=== PATIENT | female | born 1950 | race Caucasian/White ===

== ENCOUNTER → 2019-11-24 08:45 | Outpatient (BNVA) | payer MEDICAID, SELFPAY | PROVIDERS: Family Provider Internal Medicine; PCP Internal Medicine; Visit Provider Internal Medicine | DX: M06.9 Rheumatoid arthritis, unspecified (principal); Z79.899 Other long term (current) drug therapy | CPT/HCPCS: 99213 ==

== ENCOUNTER 2020-07-25 08:00 | Outpatient (CLI) | payer MEDICAID, SELFPAY | END 2020-07-25 08:01 | disposition home or self-care (01) | LOC: WOUND 08:01 | PROVIDERS: Family Provider Internal Medicine; PCP Internal Medicine; Visit Provider Nurse Practitioner Family | DX: E11.622 Type 2 diabetes mellitus with other skin ulcer (principal); L97.822 Non-pressure chronic ulcer of other part of left lower leg with fat layer exposed; L97.812 Non-pressure chronic ulcer of other part of right lower leg with fat layer exposed | CPT/HCPCS: 11042; 11045; 87070; 87077; 87176; 87186; 87205; G0463 ==

== ENCOUNTER 2020-09-27 08:20 | Outpatient (CLI) | payer MEDICAID, SELFPAY | END 2020-09-27 08:21 | disposition home or self-care (01) | PROVIDERS: Family Provider Internal Medicine; PCP Internal Medicine; Visit Provider Surgery | DX: L97.822 Non-pressure chronic ulcer of other part of left lower leg with fat layer exposed (principal) | CPT/HCPCS: 11042; 11045; G0463 ==

== ENCOUNTER 2020-10-04 08:00 | Outpatient (CLI) | payer MEDICAID, SELFPAY | END 2020-10-04 08:01 | disposition home or self-care (01) | LOC: WOUND 08:01 | PROVIDERS: Family Provider Internal Medicine; PCP Internal Medicine; Visit Provider Surgery | DX: E11.622 Type 2 diabetes mellitus with other skin ulcer (principal); L97.822 Non-pressure chronic ulcer of other part of left lower leg with fat layer exposed | CPT/HCPCS: 11042; 11045 ==

== ENCOUNTER 2020-10-11 08:06 | Outpatient (CLI) | payer MEDICAID, SELFPAY | END 2020-10-11 08:07 | disposition home or self-care (01) | LOC: WOUND 08:06 | PROVIDERS: Family Provider Internal Medicine; PCP Internal Medicine; Visit Provider Nurse Practitioner Family | DX: I73.9 Peripheral vascular disease, unspecified (principal); L97.822 Non-pressure chronic ulcer of other part of left lower leg with fat layer exposed | CPT/HCPCS: 11042; 11045 ==

== ENCOUNTER 2020-10-18 08:36 | Outpatient (CLI) | payer MEDICAID, SELFPAY | END 2020-10-18 08:37 | disposition home or self-care (01) | LOC: WOUND 08:37 | PROVIDERS: Family Provider Internal Medicine; PCP Internal Medicine; Visit Provider Surgery | DX: I73.9 Peripheral vascular disease, unspecified (principal); L97.822 Non-pressure chronic ulcer of other part of left lower leg with fat layer exposed | CPT/HCPCS: 11042; 11045 ==

== ENCOUNTER 2020-10-25 08:26 | Outpatient (CLI) | payer MEDICAID, SELFPAY | END 2020-10-25 08:27 | disposition home or self-care (01) | LOC: WOUND 08:27 | PROVIDERS: Family Provider Internal Medicine; PCP Internal Medicine; Visit Provider Surgery | DX: I73.9 Peripheral vascular disease, unspecified (principal); L97.822 Non-pressure chronic ulcer of other part of left lower leg with fat layer exposed | CPT/HCPCS: 11042; 11045; 88304; 88305 ==

== ENCOUNTER 2020-10-31 08:52 | Outpatient (CLI) | payer MEDICAID, SELFPAY ==
--- NOTE | 2020-10-31 09:01 | USCV_ITS ---
Mer Pendleton Age: 70 Gender: F : 1950 Exam Date: 10/31/2020 09:31 Ordering Phys: Edmund Monroe MD Technologist: Sera Simmons Exam Location: [facility] [place] Indication: HISTORY: PROCEDURES: Left duplex Venous Insufficiency study of the Deep and Superficial systems was carried out according to normal protocol with the patient in supine positon for deep system and dependent position for the superficial system. FINDINGS: No DVT or superficial thrombus seen in Left lower extremity. Non healing ulcer left posterior and lateral calf areas. Two very minimal areas of minor reflux noted in left GSV AK and left SSV prox segment. Echo-free space was noted to the subcutaneous tissue at the above-knee and below-knee levels on the left side. CONCLUSIONS 1. Significant venous reflux of greater than 500 ms(806ms) was noted at the level of the distal greater saphenous vein segment on the left side. The vein was 2.95 cm deep with a diameter of 0.65 cm at this level. 2. No evidence of DVT on the left side. 3. No other significant reflux on the left side 4. Features of fluid retention/edema on the left side Dr Da Mena MD [facility] WITH [facility] (Electronically Signed) Final Date: 01 November 2020 08:26 S
== END 2020-10-31 08:53 | disposition home or self-care (01) ==
LOC: RAD 08:57
PROVIDERS: PCP Internal Medicine; Visit Provider Surgery
DX: E11.622 Type 2 diabetes mellitus with other skin ulcer (principal)
CPT/HCPCS: 93971

== ENCOUNTER 2020-11-08 08:38 | Outpatient (CLI) | payer MEDICAID, SELFPAY | END 2020-11-08 08:39 | disposition home or self-care (01) | LOC: WOUND 08:38 | PROVIDERS: PCP Internal Medicine; Visit Provider Thoracic Surgery (Cardiothoracic Vascular Surgery) | DX: I73.9 Peripheral vascular disease, unspecified (principal); L97.822 Non-pressure chronic ulcer of other part of left lower leg with fat layer exposed | CPT/HCPCS: 11042; 11045 ==

== ENCOUNTER 2020-11-15 09:09 | Outpatient (CLI) | payer MEDICAID, SELFPAY | END 2020-11-15 09:10 | disposition home or self-care (01) | LOC: WOUND 09:09 | PROVIDERS: PCP Internal Medicine; Visit Provider Surgery | DX: I73.9 Peripheral vascular disease, unspecified (principal); L97.822 Non-pressure chronic ulcer of other part of left lower leg with fat layer exposed | CPT/HCPCS: 11042; 11045 ==

== ENCOUNTER 2020-11-22 10:18 | Outpatient (CLI) | payer MEDICAID, SELFPAY | END 2020-11-22 10:19 | disposition home or self-care (01) | LOC: WOUND 10:19 | PROVIDERS: PCP Internal Medicine; Visit Provider Surgery | DX: I73.9 Peripheral vascular disease, unspecified (principal); L97.822 Non-pressure chronic ulcer of other part of left lower leg with fat layer exposed; I87.2 Venous insufficiency (chronic) (peripheral); L97.811 Non-pressure chronic ulcer of other part of right lower leg limited to breakdown of skin | CPT/HCPCS: 11042; 11045 ==

== ENCOUNTER 2020-11-29 10:12 | Outpatient (CLI) | payer MEDICAID, SELFPAY | END 2020-11-29 10:13 | disposition home or self-care (01) | LOC: WOUND 10:12 | PROVIDERS: PCP Internal Medicine; Visit Provider Surgery | DX: I73.9 Peripheral vascular disease, unspecified (principal); L97.822 Non-pressure chronic ulcer of other part of left lower leg with fat layer exposed | CPT/HCPCS: 11042; 11045 ==

== ENCOUNTER 2020-12-06 09:54 | Outpatient (CLI) | payer MEDICAID, SELFPAY | END 2020-12-06 09:55 | disposition home or self-care (01) | LOC: WOUND 09:55 | PROVIDERS: PCP Internal Medicine; Visit Provider Surgery | DX: I73.9 Peripheral vascular disease, unspecified (principal); L97.822 Non-pressure chronic ulcer of other part of left lower leg with fat layer exposed | CPT/HCPCS: 11042; 11045 ==

== ENCOUNTER → 2020-12-12 14:15 | Outpatient (BNVA) | payer MEDICAID, SELFPAY | PROVIDERS: PCP Internal Medicine; Visit Provider Internal Medicine Rheumatology | DX: M06.9 Rheumatoid arthritis, unspecified (principal); E11.622 Type 2 diabetes mellitus with other skin ulcer; L97.909 Non-pressure chronic ulcer of unspecified part of unspecified lower leg with unspecified severity | CPT/HCPCS: 99213 ==

== ENCOUNTER 2020-12-13 09:11 | Outpatient (CLI) | payer MEDICAID, SELFPAY | END 2020-12-13 09:12 | disposition home or self-care (01) | LOC: WOUND 09:12 | PROVIDERS: PCP Internal Medicine; Visit Provider Surgery | DX: I73.9 Peripheral vascular disease, unspecified (principal); L97.822 Non-pressure chronic ulcer of other part of left lower leg with fat layer exposed | CPT/HCPCS: 11042; 11045 ==

== ENCOUNTER 2020-12-20 07:59 | Outpatient (CLI) | payer MEDICAID, SELFPAY | END 2020-12-20 08:00 | disposition home or self-care (01) | LOC: WOUND 08:00 | PROVIDERS: PCP Internal Medicine; Visit Provider Surgery | DX: I96 Gangrene, not elsewhere classified (principal); L97.822 Non-pressure chronic ulcer of other part of left lower leg with fat layer exposed | CPT/HCPCS: 11042; 11045 ==

== ENCOUNTER 2020-12-27 08:35 | Outpatient (CLI) | payer MEDICAID, SELFPAY | END 2020-12-27 08:36 | disposition home or self-care (01) | LOC: WOUND 08:35 | PROVIDERS: PCP Internal Medicine; Visit Provider Surgery | DX: L97.822 Non-pressure chronic ulcer of other part of left lower leg with fat layer exposed (principal) | CPT/HCPCS: 11042; 11045 ==

== ENCOUNTER 2021-01-03 08:50 | Outpatient (CLI) | payer MEDICAID, SELFPAY | END 2021-01-03 08:51 | disposition home or self-care (01) | LOC: WOUND 08:51 | PROVIDERS: PCP Internal Medicine; Visit Provider Emergency Medicine | DX: I73.9 Peripheral vascular disease, unspecified (principal); L97.822 Non-pressure chronic ulcer of other part of left lower leg with fat layer exposed | CPT/HCPCS: 11042; 11045 ==

== ENCOUNTER 2021-01-10 09:26 | Outpatient (CLI) | payer MEDICAID, SELFPAY | END 2021-01-10 09:27 | disposition home or self-care (01) | LOC: WOUND 09:27 | PROVIDERS: PCP Internal Medicine; Visit Provider Surgery | DX: I73.9 Peripheral vascular disease, unspecified (principal); L97.822 Non-pressure chronic ulcer of other part of left lower leg with fat layer exposed; E11.9 Type 2 diabetes mellitus without complications | CPT/HCPCS: 11042; 11045; 99212 ==

== ENCOUNTER 2021-02-20 10:44 | Outpatient (CLI) | payer MEDICAID, SELFPAY ==
--- NOTE | 2021-02-20 10:52 | USCV_ITS ---
Mer Pendleton Age: 70 Gender: F : 1950 Exam Date: 02/20/2021 10:39 Ordering Phys: Edmund Monroe MD Technologist: Exam Location: [facility] [place]_ Indication: BILAT LEG ULCERS RIGHT LEFT Brachial mmHg Brachial 101.00 mmHg Pressure (mmHg) Waveform Pressure (mmHg) Waveform 145.00 Pre-Exercise Toe Pressure 134.00 1.40 Pre-Exercise Toe/Brachial Index 1.30 FINDINGS Normal resting TBIs bilaterally Noncompressible vessels at the ankles laterally CONCLUSIONS No significant arterial obstruction, based on the above findings. Dr Da Mena MD [facility] (Electronically Signed) Final Date: 20 February 2021 22:58 S
== END 2021-02-20 10:45 | disposition home or self-care (01) ==
LOC: RAD 10:46
PROVIDERS: PCP Internal Medicine; Visit Provider Surgery
DX: M79.604 Pain in right leg; M79.605 Pain in left leg; L97.929 Non-pressure chronic ulcer of unspecified part of left lower leg with unspecified severity; L97.919 Non-pressure chronic ulcer of unspecified part of right lower leg with unspecified severity
CPT/HCPCS: 93922

== ENCOUNTER 2021-04-03 16:10 | Emergency (ER) | payer MEDICAID, SELFPAY ==
--- NOTE | 2021-04-03 16:19 | ECG_ITS ---
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 Measurements Intervals Leslie Rate: 85 P: 58 ME: 113 QRS: 13 QRSD: 101 T: 66 QT: 383 QTc: 457 Interpretive Statements SINUS RHYTHM WITH SHORT ME INTERVAL POSSIBLE LEFT ATRIAL ENLARGEMENT [-0.1mV P-WAVE IN V1/V2] POSSIBLE ANTERIOR MYOCARDIAL INFARCTION , OF INDETERMINATE AGE [30 ms Q WAVE IN V3/V4, OR R < 0.2 mV IN V4] Compared to ECG 07/30/2018 06:03:08 Short ME interval now present Myocardial infarct finding still present Electronically Signed On 04-04-2021 6:35:00 FACILITY MAINTENANCE MANAGER by Trudy Romano M.D. [id number]
[2021-04-03 16:23] VITALS: BP 134/76; PULSE 88; RESP 22; TEMP 36.6; O2SAT 95; BMI 29.2
[2021-04-03 16:31] VITALS: BP 134/76; PULSE 88; RESP 22; TEMP 36.6; O2SAT 95
--- NOTE | 2021-04-03 16:34 | PC.NURSE ---
Pt arrived via EMS from [facility] care [facility]. Pt states this morning around 1100 staff took her VS, per staff pt had a new onset of A-Fib. Per pt, the A-Fib is not a new dx, she was dx with A-Fib aboutr 4 years ago. Pt A/O x4, vs taken, pt arrives in sinus rhythm with no A-Fib noted. Pt denies any SOB, chest pain, N/V, pt reports I feel fine and just want to go home and get back to wrapping my [employer] gifts . Pt placed on monitor.
--- NOTE | 2021-04-03 16:47 | PC.NURSE ---
Per Dr. Becerra pt ok to eat. Pt given a sandwich, saltine crackers, peanut butter, sugar free jello, a cheese stick and a diet sprite
--- NOTE | 2021-04-03 17:15 | W.ED.ARRPALP ---
HPI - Arrhythmia/Palpitations General: Chief Complaint: Arrhythmia/Palpitations Stated Complaint: EKG SHOWS AFIB Time Seen by Provider: 04/03/21 16:27 Source: patient and EMS History of Present Illness: HPI narrative: Patient presents via EMS to the emergency department this 70-year-old female presents with a known history of atrial fibrillation chief complaint by the intermediate with concerns of atrial fib patient reports he had one episode several years ago she is on no medications for it she reports that she was up doing her activities which the staff were doing vital signs on her which her heart rate was elevated patient did not report having any chest pain palpitations or shortness of breath reported that she does not know why she is here but there was concerns by the staff she may be back in atrial fibrillation. Patient reports he is been on no recent medications no recent medication changes reports recent infections or illnesses or any other associated symptoms. Associated symptoms: Deny anxiety, nausea or vomiting Review of Systems General: Reports: 10 or more systems reviewed and unremarkable except in HPI and below Const: Denies: fever(s), chills, fatigue or malaise Eyes: Denies: change in vision or blurry vision Card: Denies: chest pain or palpitations Resp: Denies: dyspnea or productive cough GI: Denies: abdominal pain, nausea or vomiting : Denies: flank pain Musc: Denies: extremity pain or extremity swelling Skin/Breast: Denies: rash or pruritus Neuro: Denies: headache(s) Psych: Denies: anxiety or depression Brennan/Lymph: Denies: easy bleeding All/Imm: Denies: urticaria, throat swelling or facial swelling PFSH ED PFSH: Medical History Anemia Atrial fibrillation CAD (coronary artery disease) CHF (congestive heart failure) Chronic ulcer of lower extremity Diabetes Obstructive sleep apnea Pulmonary edema Renal insufficiency Rheumatoid arthritis Seropositive rheumatoid arthritis of multiple sites in remission Surgical History S/P appendectomy S/P coronary artery stent placement S/P tonsillectomy Family History Other Cancer Heart disease Social History Smoking and tobacco status: never smoked Alcohol intake: never Physical Exam Narrative: EXAM NARRATIVE: Patient appears nontoxic appears no obvious acute distress actively questioning why she is here refusing any additional work-up Const: COMMON NORMALS: no acute distress, patient oriented x3 and healthy appearing HENMT: COMMON NORMALS: normocephalic and atraumatic HEAD & SCALP: normocephalic and atraumatic Eye: COMMON NORMALS: Equal, round and reactive pupils present and EOMs intact bilaterally PUPIL: Yes Equal, round and reactive pupils present Neck/C-Spine: COMMON NORMALS: full ROM, supple and no JVD Lymph: LYMPHATIC: no lymphadenopathy noted Chest: COMMONS NORMALS: normal inspection of the chest and normal palpation of entire chest wall Resp: COMMON NORMALS: normal respiratory effort, No retractions and clear to auscultation bilaterally EFFORT & INSPECTION: Yes able to speak in complete sentences and Yes symmetric chest movement AUSCULTATION: clear to auscultation bilaterally Cardio: COMMON NORMALS: no JVD, regular rate and regular rhythm RATE: regular rate RHYTHM: regular rhythm GI: COMMON NORMALS: Normal to inspection, nondistended, normoactive bowel sounds present, Soft to palpation and non-tender INSPECTION: Yes normal to inspection PALPATION: Yes Soft to palpation : COMMON NORMALS: Yes no CVA tenderness BLADDER/KIDNEY EXAM: Yes no CVA tenderness Back/Pelvis: COMMON NORMALS: no CVA tenderness Extremity: COMMON NORMALS: normal to inspection and full ROM Neuro: COMMON NORMALS: patient oriented x3, CN's II-XII intact bilaterally, moves all extremities and no focal motor deficits Psych: COMMON NORMALS: mental status grossly normal, Normal thought process present, cooperative and normal affect THOUGHT PROCESS: Normal thought process present Skin: COMMON NORMALS: no rashes or lesions noted GENERAL SKIN EXAM: no rashes or lesions noted Course ED course: Due to the patient's symptoms and condition EKG was obtained revealing just sinus with couple PACs no atrial fibrillation was appreciated patient requests no additional work-up at this time we observe the patient for over an hour and a half with with which she had no additional episodes of atrial fibrillation per her request will be discharging her back to the facility. We did advise she further follow-up with the primary care doctor and to 3 days for further assessment and management she is concerned about it as she may need back into medications for to which patient was advised to return the interim if any of her symptoms persist or worse. Vital Signs: Vital signs: Vital Signs Temperature 97.8 F 04/03/21 16:31 Pulse Rate 88 04/03/21 16:31 Respiratory Rate 22 H 04/03/21 16:31 Blood Pressure 134/76 04/03/21 16:31 Pulse Oximetry 95 04/03/21 16:31 Discharge Plan Discharge Patient Disposition: Home Clinical Impression: Personal history of atrial fibrillation, Sinus arrhythmia seen on electrocardiography Condition: Stable Prescriptions: No Action acetaminophen 325 mg tablet 650 mg PO Q6H PRNRF: 0 albuterol sulfate 2.5 mg /3 mL (0.083 %) solution for nebulization 2.5 mg INHALATION Q4H PRNRF: 0 atorvastatin 10 mg tablet 10 mg PO DAILY RF: 0 duloxetine 30 mg capsule,delayed release(DR/EC) 30 mg PO DAILY RF: 0 ferrous sulfate 325 mg (65 mg iron) tablet 325 mg PO BID RF: 0 hydrocodone-acetaminophen 10-325 mg tablet 1 tab PO Q6H PRNRF: 0 hydroxychloroquine 200 mg tablet 200 mg PO BID RF: 0 omeprazole 40 mg capsule,delayed release(DR/EC) 40 mg PO DAILY RF: 0 ondansetron HCl 8 mg tablet 8 mg PO QID PRN (Reason: nausea and vomiting) RF: 0 ropinirole 2 mg tablet 2 mg PO DAILY RF: 0 Spiriva Respimat 1.25 mcg/actuation mist 2 puff INHALATION DAILY RF: 0 trazodone 100 mg tablet 100 mg PO DAILY RF: 0 ergocalciferol (vitamin D2) 1,250 mcg (50,000 unit) capsule 1,250 mcg PO .WEEKLY RF: 0 bumetanide 2 mg tablet 2 mg PO BID RF: 0 docusate sodium [Colace] 100 mg capsule 100 mg PO DAILY RF: 0 polyethylene glycol 3350 [Miralax] 17 gram/dose powder 17 g PO DAILY RF: 0 nystatin 100,000 unit/mL suspension 1 ml PO DAILY PRNRF: 0 furosemide 40 mg tablet 40 mg PO DAILY RF: 0 Discharge Orders: Discharge ED (Routine); Ordered 04/03/21 Ordered By: Naif Becerra Referrals: Sonido Alvarado DO [Primary Care Provider] - 1-3 days Discharge Diet: Usual diet Discharge Activity: Resume usual activity Patient Instructions: A-fib (Atrial Fibrillation) (ED), Opioid Safety Activity Restrictions/Additional Instructions: During her stay in the emergency department no atrial fibrillation was noted. At this time for request she will be going back to the intermediate facility as you are totally asymptomatic. Please further follow-up with your primary care doctor next 2 to 3 days for further assessment and management and return the interim if any of your symptoms persist or worse. Coding Level of Care Code ED Patient Care for Italo Ohara
[2021-04-03 20:58] VITALS: BP 109/58; PULSE 83; RESP 18; O2SAT 97
== END 2021-04-03 21:00 | disposition home or self-care (01) ==
PROVIDERS: Emergency Provider Emergency Medicine; PCP Internal Medicine
DX: I49.8 Other specified cardiac arrhythmias (principal); I25.10 Atherosclerotic heart disease of native coronary artery without angina pectoris; I50.9 Heart failure, unspecified; E11.9 Type 2 diabetes mellitus without complications
CPT/HCPCS: 93005; 99283

== ENCOUNTER 2021-06-11 13:30 | Outpatient (CLI) | payer MEDICAID, SELFPAY ==
[2021-06-11 14:09] LABS: Basophils % 0.5 %; Eosinophils # 0.1 10^3/uL (0.0-0.8); Eosinophils % 1.3 %; Hematocrit 40.9 % (37.0-47.0); Hemoglobin 13.2 g/dL (11.5-15.3); Lymphocytes % 26.1 %; Mean Corpuscular HGB Conc 32.3 g/dL (30.0-36.0); Mean Corpuscular Hemoglobin 31.7 pg (28.0-34.0); Mean Corpuscular Volume 98.3 fl (81-99); Mean Platelet Volume 9.1 fL (7.4-10.4); Monocytes # 0.7 10^3/uL (0.2-0.9); Monocytes % 9.5 %; Neutrophils # 4.68 10^3/uL (1.8-7.7); Neutrophils % 62.5 %; Nucleated Red Blood Cells % 0 %; Platelet Count 261 10^3/cmm (130-400); Red Blood Count 4.16 10^6/uL (4.1-5.3); Red Cell Distribution Width 12.7 % (12.1-15.1); White Blood Count 7.5 10^3/uL (4.0-10.0)
[2021-06-11 14:45] LABS: Anion Gap 20.6 (5-19); Blood Urea Nitrogen 60 mg/dL (8-23); Calcium 9.5 mg/dL (8.5-10.5); Carbon Dioxide 26 mmol/L (22-29); Chloride 99 mmol/L (98-107); Glomerular Filtration Rate 34.4 mL/min (90-130); Glucose 126 mg/dL (65-115); Osmolality Calculated 310 mOsm/kg (285-295); Potassium 4.6 mmol/L (3.5-5.1); Sodium 141 mmol/L (136-145)
== END 2021-06-11 13:31 | disposition home or self-care (01) ==
PROVIDERS: PCP Internal Medicine; Visit Provider Internal Medicine
DX: R00.0 Tachycardia, unspecified (principal)
CPT/HCPCS: 80048; 85025

== ENCOUNTER → 2021-07-16 13:45 | Outpatient (BNVA) | payer MEDICAID, SELFPAY | PROVIDERS: PCP Internal Medicine; Visit Provider Internal Medicine Rheumatology | DX: M05.79 Rheumatoid arthritis with rheumatoid factor of multiple sites without organ or systems involvement (principal); Z79.899 Other long term (current) drug therapy; L97.919 Non-pressure chronic ulcer of unspecified part of right lower leg with unspecified severity; L97.929 Non-pressure chronic ulcer of unspecified part of left lower leg with unspecified severity; H54.61 Unqualified visual loss, right eye, normal vision left eye | CPT/HCPCS: 99214 ==

== ENCOUNTER → 2021-12-30 11:28 | Outpatient (BNVA) | payer MEDICAID, SELFPAY | PROVIDERS: PCP Internal Medicine; Visit Provider Internal Medicine Rheumatology | DX: M05.79 Rheumatoid arthritis with rheumatoid factor of multiple sites without organ or systems involvement (principal); Z79.899 Other long term (current) drug therapy; Z71.85 Encounter for immunization safety counseling; H54.61 Unqualified visual loss, right eye, normal vision left eye | CPT/HCPCS: 99214 ==

== ENCOUNTER → 2022-04-07 11:02 | Outpatient (BNVA) | payer MEDICAID, SELFPAY | PROVIDERS: PCP Internal Medicine; Visit Provider Internal Medicine Rheumatology | DX: M05.79 Rheumatoid arthritis with rheumatoid factor of multiple sites without organ or systems involvement (principal); Z79.899 Other long term (current) drug therapy; L97.909 Non-pressure chronic ulcer of unspecified part of unspecified lower leg with unspecified severity; Z71.85 Encounter for immunization safety counseling; H54.61 Unqualified visual loss, right eye, normal vision left eye | CPT/HCPCS: 73130; 99214 ==

== ENCOUNTER → 2022-07-09 12:36 | Outpatient (BNVA) | payer MEDICAID, SELFPAY | PROVIDERS: PCP Internal Medicine; Visit Provider Internal Medicine Rheumatology | DX: M05.79 Rheumatoid arthritis with rheumatoid factor of multiple sites without organ or systems involvement (principal); L97.909 Non-pressure chronic ulcer of unspecified part of unspecified lower leg with unspecified severity; Z79.899 Other long term (current) drug therapy; Z71.85 Encounter for immunization safety counseling; H54.8 Legal blindness, as defined in USA; Z87.448 Personal history of other diseases of urinary system; Z86.79 Personal history of other diseases of the circulatory system | CPT/HCPCS: 99214 ==

== ENCOUNTER → 2023-01-14 12:54 | Outpatient (BNVA) | payer MEDICAID, SELFPAY | PROVIDERS: PCP Internal Medicine; Visit Provider Internal Medicine Rheumatology | DX: M05.79 Rheumatoid arthritis with rheumatoid factor of multiple sites without organ or systems involvement (principal); Z79.899 Other long term (current) drug therapy; Z71.85 Encounter for immunization safety counseling | CPT/HCPCS: 36415; 80076; 82565; 85025; 86140; 99214 ==

== ENCOUNTER 2023-09-18 08:33 | Emergency (ER) | payer MEDICAID, SELFPAY ==
[2023-09-18] VITALS (20 sets, daily range): BP systolic 118–145; BP diastolic 71–107; PULSE 72–160; RESP 16–23; TEMP 36.8; O2SAT 93–96
--- NOTE | 2023-09-18 08:56 | ECG_ITS ---
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 Measurements Intervals [place] Rate: 156 P: 0 UT: 0 QRS: 48 QRSD: 85 T: -13 QT: 289 QTc: 466 Interpretive Statements ATRIAL FIBRILLATION WITH RAPID VENTRICULAR RESPONSE LOW QRS VOLTAGE IN PRECORDIAL LEADS [QRS DEFLECTION < 1.0 mV IN CHEST LEADS] ST DEVIATION AND MODERATE T-WAVE ABNORMALITY, CONSIDER ANTERIOR ISCHEMIA [-0.1+ mV T-WAVE IN V3/V4] No previous ECG available for comparison Electronically Signed On 09-18-2023 12:05:56 CDT by Madison Cheung M.D. [id number]
--- NOTE | 2023-09-18 08:58 | USR_ITS ---
PROCEDURE INFORMATION: Exam: US Duplex Left Lower Extremity Arteries Or Arterial Bypass Grafts Exam date and time: 09/18/2023 9:32 AM Age: 73 years old Clinical indication: Other: Ischemic limb; Additional info: Isemic limb TECHNIQUE: Imaging protocol: Left Real-time duplex scan of the arteries or arterial bypass grafts of the left lower extremity with 2-D groves scale, color Doppler flow and spectral waveform analysis. Images documented and saved. COMPARISON: US CV ankle brachial index [id number] 02/20/2021 10:39 AM FINDINGS: Left external iliac artery: The left iliac artery system demonstrates a normal Doppler waveform and normal flow. Left common femoral artery: Occlusion noted. Left superficial femoral artery: Occlusion noted. Left popliteal artery: Occlusion noted. Left calf/foot arteries: No arterial Doppler flow detected. Other findings: There is occlusion involving the common femoral artery, superficial femoral artery and popliteal artery. Arterial flow cannot be identified at the ankle. 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
--- NOTE | 2023-09-18 09:00 | W.ED.EXTPRO ---
HPI - Extremity Problem General: Chief complaint: Extremity Problem,Nontraumatic Stated complaint: LEFT LEG PAIN Time Seen by Provider: 09/18/23 08:38 Source: patient Mode of arrival: EMS History of Present Illness: 71-year-old female presents emergency room with complaint of left lower leg pain that began overnight. [facility] is [facility]. On arrival here the leg is cool to touch and cyanotic in appearance. She does tell me she has had blood clots in the past and was on some anticoagulants but was stopped. She has a history of rheumatoid arthritis as well. She is also noted to have rapid heart rate. She is in atrial fibrillation. She tells me she may have had this in the past she is not entirely sure. She denies chest pain MD Complaint: extremity pain and cold extremity Onset (ago): hour(s) Pain Consistency: constant Location: left and lower extremity Quality: aching Radiation: distal Relieving factors: nothing Exacerbating factors: nothing Associated symptoms: Deny arthralgias, chest pain, fever(s), myalgias, rash or short of breath Review of Systems Const: Denies: fever(s) Card: Denies: chest pain Resp: Denies: dyspnea GI: Denies: abdominal pain : Denies: dysuria, urinary frequency or urinary urgency Musc: Denies: neck pain or back pain Skin/Breast: Denies: rash PFSH ED PFSH: Medical History Anemia Atrial fibrillation CAD (coronary artery disease) CHF (congestive heart failure) Chronic ulcer of lower extremity Diabetes High risk medication use History of COPD Immunization counseling Obstructive sleep apnea Pulmonary edema Renal insufficiency Restless leg syndrome Rheumatoid arthritis Seropositive rheumatoid arthritis of multiple sites Ulcers of both lower extremities Surgical History S/P appendectomy S/P coronary artery stent placement S/P tonsillectomy Family History Other Cancer Heart disease Social History Smoking and tobacco/nicotine status: never used tobacco/nicotine Alcohol intake: never Substance/Drug Use: never Physical Exam Const: GENERAL APPEARANCE: cooperative ORIENTATION/CONSCIOUSNESS: Yes awake HENMT: COMMON NORMALS: normocephalic, atraumatic and hearing grossly normal bilaterally HEAD & SCALP: normocephalic and atraumatic Resp: COMMON NORMALS: normal respiratory effort, No retractions and No use of accessory muscles AUSCULTATION: diminished lung sounds Cardio: COMMON NORMALS: No murmurs present (Cardio) RATE: tachycardic RHYTHM: abnormal rhythm irregularly irregular GI: COMMON NORMALS: Soft to palpation and No hepatosplenomegaly present AUSCULTATION: Yes normoactive bowel sounds PALPATION: Yes Soft to palpation, No Tenderness to palpation present (GI), No Guarding due to palpation present (GI) and Yes No hepatosplenomegaly present Extremity: OTHER: Left lower leg is cool and cyanotic there is no palpable pulse no dopplerable pulse appears ischemic Patient cannot appreciate the difference between sharp and dull touch unable to move toes or ankle. She can still move at the hip Skin: COMMON NORMALS: no rashes or lesions noted GENERAL SKIN EXAM: no rashes or lesions noted Course Vital Signs: Vital signs: Vital Signs Temperature 98.2 F 09/18/23 08:44 Pulse Rate 80 09/18/23 14:00 Respiratory Rate 17 09/18/23 12:15 Blood Pressure 128/103 09/18/23 11:55 Pulse Oximetry 95 09/18/23 14:00 Oxygen Delivery Me thod Room Air 09/18/23 09:25 MDM - Extremity (Nontraumatic) Medical Decision Making Transfer to [facility]. At time of arrival here patient has no sensation to the leg and is unable to move the toes she can still move at the foot she can barely proceed with additional screens sharp and dull touch on the affected foot. We do not have exact time of onset of symptoms seem to be of began during the night and was noted this morning when she woke up. She still is having some pain. Heparin started initially after exam as well as Cardizem which she maxed out on did not have rate control or change her to amiodarone which did provide adequate rate control will transfer to [facility] of talk to vascular surgery she will be a direct admit to the hospitalist service Medical Records I reviewed the patient's medical records. Lab Data I reviewed the patient's lab results. 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 Laboratory Results WBC 6.49 10^3/uL (3.29-11.43) 09/18/23 08:22 RBC 4.07 10^6/uL (3.85-5.65) 09/18/23 08:22 Hgb 12.20 g/dL (11.27-16.99) 09/18/23 08:22 Hct 37.7 % (36-47) 09/18/23 08:22 MCV 92.6 fl (85-98) 09/18/23 08:22 MCH 30.0 pg (27-33) 09/18/23 08:22 MCHC 32.4 g/dL (30-55) 09/18/23 08:22 RDW 12.8 % (12.1-15.1) 09/18/23 08:22 Plt Count 250 10^3/cmm (157-399) 09/18/23 08:22 MPV 9.4 fL (7.4-10.4) 09/18/23 08:22 Neut % (Auto) 47.7 % 09/18/23 08:22 Lymph % (Auto) 39.4 % 09/18/23 08:22 Mckean % (Auto) 10.5 % 09/18/23 08:22 Eos % (Auto) 0.9 % 09/18/23 08:22 Baso % (Auto) 1.2 % 09/18/23 08:22 Neut # (Auto) 3.09 10^3/uL (1.8-7.7) 09/18/23 08:22 Lymph # (Auto) 2.6 10^3/uL (0.8-4.8) 09/18/23 08:22 Mckean # (Auto) 0.7 10^3/uL (0.2-0.9) 09/18/23 08:22 Eos # (Auto) 0.1 10^3/uL (0.0-0.8) 09/18/23 08:22 Baso # (Auto) 0.1 10^3/uL (0.0-0.1) 09/18/23 08:22 Nucleated RBC % (auto) 0 % 09/18/23 08:22 Nucleated RBCs # 0.0 /100WBC 09/18/23 08:22 PT 13.50 SECONDS (12.1-14.9) 09/18/23 08:22 INR 1.00 (0.8-1.2) 09/18/23 08:22 APTT 29.9 SECONDS (23.9-36.7) 09/18/23 08:22 Sodium 133 mmol/L (136-145) L 09/18/23 08:22 Potassium 3.8 mmol/L (3.5-5.1) 09/18/23 08:22 Chloride 88 mmol/L (98-107) L 09/18/23 08:22 Carbon Dioxide 29 mmol/L (22-29) 09/18/23 08:22 Anion Gap 19.8 (5-19) H 09/18/23 08:22 BUN 59 mg/dL (8-23) H 09/18/23 08:22 Creatinine 1.5 mg/dL (0.5-0.9) H 09/18/23 08:22 GFR Calculation Not Reportable 09/18/23 08:22 Glucose 160 mg/dL (65-115) H 09/18/23 08:22 Calculated Osmolality 296 mOsm/kg (285-295) H 09/18/23 08:22 Calcium 10.0 mg/dL (8.5-10.5) 09/18/23 08:22 Total Bilirubin 0.4 mg/dL (0.15-1.2) 09/18/23 08:22 AST 20 U/L (0-32) 09/18/23 08:22 ALT 12 U/L (0-33) 09/18/23 08:22 Alkaline Phosphatase 146 U/L (35-105) H 09/18/23 08:22 Total Protein 8.0 g/dL (6.6-8.7) 09/18/23 08:22 Albumin 3.7 g/dL (3.5-5.2) 09/18/23 08:22 Globulin 4.3 g/dL (1.3-4.6) 09/18/23 08:22 All radiology interpretation(s) finalized by discharge Critical Care Time Critical Care Time: Critical Care Time: Yes Total Critical Care Time: 40 Attestation: The high probability of a clinically significant, sudden or life threatening deterioration of the patient's cardiovascular, vascular system(s) required my full and direct attention, intervention and personal management. The critical care time is as shown. This time is in addition to time spent performing any reported procedures but includes the following: [x] Data and vital sign review and interpretation [x] Patient assessment, examination and intervention [x] Documentation [x] Medication orders and management Discharge Plan Discharge Patient Disposition: Xfer Short-Term Hosp Clinical Impression: Thrombosis of artery of left lower extremity, Atrial fibrillation with RVR Condition: Stable Referrals: Sonido Alvarado DO [Primary Care Provider] - Coding Level of Care Code ED Hammer Repairer for Italo Ohara
[2023-09-18 09:05] LABS: Basophils # 0.1 10^3/uL (0.0-0.1); Basophils % 1.2 %; Eosinophils # 0.1 10^3/uL (0.0-0.8); Eosinophils % 0.9 %; Hematocrit 37.7 % (36-47); Lymphocytes # 2.6 10^3/uL (0.8-4.8); Lymphocytes % 39.4 %; Mean Corpuscular HGB Conc 32.4 g/dL (30-55); Mean Corpuscular Volume 92.6 fl (85-98); Mean Platelet Volume 9.4 fL (7.4-10.4); Monocytes # 0.7 10^3/uL (0.2-0.9); Monocytes % 10.5 %; Neutrophils # 3.09 10^3/uL (1.8-7.7); Neutrophils % 47.7 %; Nucleated Red Blood Cells % 0 %; Platelet Count 250 10^3/cmm (157-399); Red Blood Count 4.07 10^6/uL (3.85-5.65); Red Cell Distribution Width 12.8 % (12.1-15.1); White Blood Count 6.49 10^3/uL (3.29-11.43)
[2023-09-18] MEDS: dilTIAZem 5 mg/mL SDV 5 mL 20 MG IVP (09:10)
[2023-09-18 09:18] LABS: Partial Thromboplastin Time 29.9 SECONDS (23.9-36.7)
[2023-09-18] MEDS: heparin 5,000 unit/mL INJ 1 mL IV (09:18)
[2023-09-18] MEDS: heparin drip 25,000 UNIT/500 ML PREMIX 17.7800000000000011 UNIT IV (09:18)
[2023-09-18] MEDS: dilTIAZem 100 MG in sodium chloride 0.9% (add-van) 100 ML IV (09:19)
[2023-09-18 09:21] LABS: Alanine Aminotransferase 12 U/L (0-33); Albumin Level 3.7 g/dL (3.5-5.2); Alkaline Phosphatase 146 U/L (35-105); Aspartate Amino Transferase 20 U/L (0-32); Blood Urea Nitrogen 59 mg/dL (8-23); Carbon Dioxide 29 mmol/L (22-29); Chloride 88 mmol/L (98-107); Creatinine Clr Calc Pharmacy 33.9859; Globulin 4.3 g/dL (1.3-4.6); Glucose 160 mg/dL (65-115); Osmolality Calculated 296 mOsm/kg (285-295); Sodium 133 mmol/L (136-145); Total Bilirubin 0.4 mg/dL (0.15-1.2)
[2023-09-18 09:24] LABS: Anion Gap 19.8 (5-19); Potassium 3.8 mmol/L (3.5-5.1)
[2023-09-18] MEDS: morphine 4 mg/mL SDV 1 mL 2 MG IVP (10:46)
[2023-09-18] MEDS: sodium chloride 0.9% 1,000 ML 999 ML IV (10:49)
[2023-09-18] MEDS: amiodarone 150 MG/100 ML PREMIX 400 MG IV (10:50)
--- NOTE | 2023-09-18 12:29 | PC.NURSE ---
Report called to Karlie Cano at [facility] in [place], [place].
--- NOTE | 2023-09-18 13:37 | PC.NURSE ---
report given to [facility], no further questions verbalized. @[phone]
--- NOTE | 2023-09-18 14:01 | PC.NURSE ---
[facility] took x2 IV pumps for medications infusing.
== END 2023-09-18 14:01 | disposition short-term general hospital (02) ==
PROVIDERS: Emergency Provider Family Medicine; PCP Internal Medicine
DX: I74.3 Embolism and thrombosis of arteries of the lower extremities (principal); I48.20 Chronic atrial fibrillation, unspecified
CPT/HCPCS: 51702; 80053; 85025; 85610; 85730; 93005; 93926; 96365; 96366; 96367; 96375; 99291; A4222; J0283; J1644; J2270; J3490; J7030

== ENCOUNTER 2023-10-18 16:01 | Emergency (ER) | payer MEDICAID, SELFPAY ==
[2023-10-18 16:03] VITALS: BP 168/70; PULSE 69; RESP 18; TEMP 36.8; O2SAT 97
--- NOTE | 2023-10-18 16:31 | USR_ITS ---
PROCEDURE INFORMATION: Exam: US Duplex Right Lower Extremity Arteries Or Arterial Bypass Grafts Exam date and time: 10/18/2023 4:44 PM Age: 73 years old Clinical indication: Swelling (edema) of limb; Lower extremity, right; Additional info: Decreased pulse TECHNIQUE: Imaging protocol: Right Real-time duplex scan of the arteries or arterial bypass grafts of the right lower extremity with 2-D groves scale, color Doppler flow and spectral waveform analysis. Images documented and saved. COMPARISON: US CV ankle brachial index [id number] 02/20/2021 10:39 AM FINDINGS: Right common femoral artery: No occlusion or significant stenosis. Monophasic waveform. Right superficial femoral artery: No occlusion or significant stenosis. Monophasic waveform. Right popliteal artery: No occlusion or significant stenosis. Monophasic waveform. Right calf/foot arteries: No occlusion or significant stenosis in the visualized arteries. Monophasic waveforms. Dorsalis pedis artery is patent. Soft tissues: No hematoma or [place]. US/[place] [id number] IMPRESSION: Monophasic waveforms throughout the right lower extremity. No significant stenosis or occlusion.
[2023-10-18 17:00] VITALS: BP 126/68; PULSE 70; O2SAT 96
[2023-10-18 17:30] VITALS: BP 121/67; PULSE 67; O2SAT 97
--- NOTE | 2023-10-18 17:54 | ED_ITS ---
HPI - Extremity Problem 2 General: Chief complaint: Extremity Problem,Nontraumatic Stated complaint: right leg no pulse Time Seen by Provider: 10/18/23 16:19 Source: patient and EMS Mode of arrival: EMS Limitations: no limitations History of Present Illness: 73-year-old female is here from [facility] home concerned of no pulse to right foot she has got peripheral vascular disease had a AKA done on the left leg a couple weeks ago at [facility] patient states she has been on antibiotics for a wound infection she has not followed back up supposed to have follow-up soon. Any she states he cannot feel pulse in the right leg was concerned about ischemic limb on the right patient denies any right leg pain. Associated symptoms: Deny chest pain, fever(s) or rash Review of Systems 2 Const: Denies: fever(s), chills, body aches or change in appetite ENMT: Denies: throat pain or dental pain Card: Denies: chest pain Resp: Denies: dyspnea GI: Denies: abdominal pain, nausea, vomiting or diarrhea Musc: Denies: neck pain or back pain Skin/Breast: Denies: rash Neuro: Denies: headache(s) PFSH ED 2 PFSH: Medical History History of COPD Restless leg syndrome Immunization counseling High risk medication use Ulcers of both lower extremities Seropositive rheumatoid arthritis of multiple sites Chronic ulcer of lower extremity Rheumatoid arthritis Diabetes Renal insufficiency CAD (coronary artery disease) Atrial fibrillation CHF (congestive heart failure) Obstructive sleep apnea Anemia Pulmonary edema Surgical History S/P coronary artery stent placement S/P tonsillectomy S/P appendectomy Family History Other Cancer Heart disease Social History Smoking and tobacco/nicotine status: never used tobacco/nicotine Alcohol intake: never Substance/Drug Use: never Physical Exam 2 Const: COMMON NORMALS: no acute distress, patient oriented x3 and healthy appearing HENMT: COMMON NORMALS: normocephalic and atraumatic HEAD & SCALP: n ormocephalic and atraumatic Neck/C-Spine: COMMON NORMALS: full ROM and supple Chest: COMMONS NORMALS: normal inspection of the chest Resp: COMMON NORMALS: normal respiratory effort, No retractions, No use of accessory muscles and clear to auscultation bilaterally AUSCULTATION: clear to auscultation bilaterally Cardio: COMMON NORMALS: regular rate, regular rhythm and No murmurs present (Cardio) RATE: regular rate RHYTHM: regular rhythm GI: COMMON NORMALS: Normal to inspection, nondistended, normoactive bowel sounds present, Soft to palpation, non-tender and no masses PALPATION: Yes Soft to palpation Extremity: OTHER: Slight erythema to wound to left stump no drainage at this time pulses palpable in right leg no tenderness on exam Neuro: COMMON NORMALS: patient oriented x3, moves all extremities and no focal motor deficits Psych: COMMON NORMALS: mental status grossly normal Skin: COMMON NORMALS: no rashes or lesions noted and no wounds GENERAL SKIN EXAM: no rashes or lesions noted Course 2 Vital Signs: Vital signs: Vital Signs Temperature 98.2 F 10/18/23 16:03 Pulse Rate 69 10/18/23 16:03 Respiratory Rate 18 10/18/23 16:03 Blood Pressure 168/70 10/18/23 16:03 Pulse Oximetry 97 10/18/23 16:03 Oxygen Delivery Me thod Room Air 10/18/23 16:03 MDM - Extremity (Nontraumatic) Medical Decision Making Patient presents here with concern of ischemic limb on the right leg from senior care ultrasound here did show flow was able to feel pulses well no signs of acute ischemic limb she is on antibiotics for wound infection does not appear severe here she is afebrile here she is to follow back up with her surgeon at [facility] she stable for discharge back to the senior care she is return if worsening. Medical Records I reviewed the patient's medical records. Lab Data I reviewed the patient's lab results. 10/18/23 17:57 10/18/23 17:57 Laboratory Results WBC 5.61 10^3/uL (3.29-11.43) 10/18/23 17:57 RBC 3.65 10^6/uL (3.85-5.65) L 10/18/23 17:57 Hgb 11.00 g/dL (11.27-16.99) L 10/18/23 17:57 Hct 35.0 % (36-47) L 10/18/23 17:57 MCV 95.9 fl (85-98) 10/18/23 17:57 MCH 30.1 pg (27-33) 10/18/23 17:57 MCHC 31.4 g/dL (30-55) 10/18/23 17:57 RDW 14.1 % (12.1-15.1) 10/18/23 17:57 Plt Count 240 10^3/cmm (157-399) 10/18/23 17:57 MPV 8.9 fL (7.4-10.4) 10/18/23 17:57 Neut % (Auto) 46.0 % 10/18/23 17:57 Lymph % (Auto) 33.5 % 10/18/23 17:57 Tripp % (Auto) 14.8 % 10/18/23 17:57 Eos % (Auto) 3.4 % 10/18/23 17:57 Baso % (Auto) 1.8 % 10/18/23 17:57 Neut # (Auto) 2.58 10^3/uL (1.8-7.7) 10/18/23 17:57 Lymph # (Auto) 1.9 10^3/uL (0.8-4.8) 10/18/23 17:57 Tripp # (Auto) 0.8 10^3/uL (0.2-0.9) 10/18/23 17:57 Eos # (Auto) 0.2 10^3/uL (0.0-0.8) 10/18/23 17:57 Baso # (Auto) 0.1 10^3/uL (0.0-0.1) 10/18/23 17:57 Nucleated RBC % (auto) 0 % 10/18/23 17:57 Nucleated RBCs # 0.0 /100WBC 10/18/23 17:57 All radiology interpretation(s) finalized by discharge Discharge Plan Discharge Patient Disposition: Home Clinical Impression: Peripheral vascular disease Condition: Stable Prescriptions: No Action atorvastatin 10 mg tablet 10 mg PO BEDTIME ondansetron HCl 8 mg tablet 8 mg PO QID PRN (Reason: nausea and vomiting) Spiriva Respimat 1.25 mcg/actuation mist 2 puff INHALATION DAILY bumetanide 2 mg tablet 2 mg PO BID metolazone 5 mg tablet 5 mg PO DAILY cholecalciferol (vitamin D3) 50 mcg (2,000 unit) capsule 50 mcg PO DAILY leflunomide 20 mg tablet 20 mg PO DAILY Qty: 30 3RF CeraVe Itch Relief 1 % Cream 1 applic TOPICAL BID hydrocodone-acetaminophen 5-325 mg tablet 1 tab PO TID PRN (Reason: Pain) naloxone 0.4 mg/mL Solution 0.4 mg SUBCUT Q3M PRN (Reason: Opioid Overdose) Rx Instructions: NTExceed 10 mg total dose/episode ropinirole 3 mg tablet 3 mg PO BEDTIME metoprolol succinate 100 mg tablet extended release 24 hr 100 mg PO DAILY melatonin 3 mg Tablet 3 mg PO BEDTIME potassium chloride 20 mEq tablet,ER particles/crystals 40 meq PO DAILY bisacodyl 10 mg Suppository 10 mg AL DAILY PRN (Reason: Constipation) omeprazole 20 mg capsule,delayed release(DR/EC) 20 mg PO DAILY bumetanide 1 mg tablet 1 mg PO DAILY Flonase Allergy Relief 50 mcg/actuation Jermyn,Suspension 1 spray INTRANASAL DAILY Rx Instructions: administer into each nostril Refresh Liquigel 1 % Drops, Liquid Gel 1 drp OPHTHALMIC (EYE) BID insulin aspart U-100 100 unit/mL (3 mL) insulin pen 3 unit SUBCUT TID Lantus Solostar U-100 Insulin 100 unit/mL (3 mL) insulin pen 10 unit SUBCUT BEDTIME Lubricant Eye 57.3-42.5 % Ointment 1 applic OPHTHALMIC (EYE) BEDTIME Reguloid (psyllium husk) 3 gram/5.4 gram Powder 1 tbsp PO DAILY Rx Instructions: mix into at least 8 oz of water or juice before administering magnesium oxide 400 mg magnesium Tablet 400 mg PO DAILY yzxljfrc-bysxvi-rwbjtpmj acid 500 mg-800 mcg- 50 mg Capsule 2 cap PO DAILY bisacodyl 5 mg Tablet 5 mg PO DAILY PRN (Reason: Constipation) Discharge Orders: Discharge ED (Routine); Ordered 10/18/23 Ordered By: Charles Hurtado Referrals: Sonido Alvarado DO [Primary Care Provider] - Discharge Diet: Advance as tolerated Discharge Activity: Resume usual activity Patient Instructions: Peripheral Vascular Disease (ED) Coding Level of Care Code ED [employer] Equipment [employer]ic for Stacy Lev
[2023-10-18 18:09] LABS: Basophils # 0.1 10^3/uL (0.0-0.1); Basophils % 1.8 %; Eosinophils # 0.2 10^3/uL (0.0-0.8); Eosinophils % 3.4 %; Lymphocytes # 1.9 10^3/uL (0.8-4.8); Lymphocytes % 33.5 %; Mean Corpuscular HGB Conc 31.4 g/dL (30-55); Mean Corpuscular Hemoglobin 30.1 pg (27-33); Mean Corpuscular Volume 95.9 fl (85-98); Mean Platelet Volume 8.9 fL (7.4-10.4); Monocytes # 0.8 10^3/uL (0.2-0.9); Monocytes % 14.8 %; Neutrophils # 2.58 10^3/uL (1.8-7.7); Nucleated Red Blood Cells % 0 %; Platelet Count 240 10^3/cmm (157-399); Red Blood Count 3.65 10^6/uL (3.85-5.65); Red Cell Distribution Width 14.1 % (12.1-15.1); White Blood Count 5.61 10^3/uL (3.29-11.43)
[2023-10-18 18:29] LABS: Blood Urea Nitrogen 31 mg/dL (8-23); Calcium 9.2 mg/dL (8.5-10.5); Carbon Dioxide 20 mmol/L (22-29); Chloride 102 mmol/L (98-107); Glucose 107 mg/dL (65-115); Osmolality Calculated 291 mOsm/kg (285-295); Sodium 137 mmol/L (136-145)
[2023-10-18 18:38] LABS: Anion Gap 20.3 (5-19); Potassium 5.3 mmol/L (3.5-5.1)
[2023-10-18 20:04] VITALS: PULSE 71; O2SAT 95
[2023-10-18 22:32] VITALS: BP 109/67; PULSE 61; RESP 16; O2SAT 95
== END 2023-10-18 22:35 | disposition home or self-care (01) ==
PROVIDERS: Emergency Provider Emergency Medicine; PCP Internal Medicine
DX: I73.9 Peripheral vascular disease, unspecified (principal); Z79.4 Long term (current) use of insulin; J44.9 Chronic obstructive pulmonary disease, unspecified; E11.9 Type 2 diabetes mellitus without complications; I25.10 Atherosclerotic heart disease of native coronary artery without angina pectoris; I50.9 Heart failure, unspecified
CPT/HCPCS: 36415; 80048; 85025; 93926; 99284

== ENCOUNTER 2024-12-05 14:43 | Emergency (ER) | payer MEDICAID, SELFPAY ==
[2024-12-05 14:44] VITALS: BP 135/83; PULSE 55; RESP 16; TEMP 36.5; O2SAT 96; BMI 21.2
--- NOTE | 2024-12-05 14:51 | CT_ITS ---
WS: [id number] CT CERVICAL SPINE HISTORY: fall TECHNIQUE: Contiguous 2.0 mm axial imaging performed through the entire cervical spine. Sagittal and coronal reformats also performed. All CT scans at [facility] use at least one of these dose optimization techniques: automated exposure control; mA and/or kV adjustment per patient size (includes targeted exams where dose is matched to clinical indication); or iterative reconstruction. DLP: 1282.30 mGy.cm COMPARISON: None available. Mild increase in cervical lordosis. No acute fractures. Advanced degenerative disc disease at C6-7 with disc base narrowing. Craniocervical junction normal. Facet joints are normally aligned. Lateral masses of C1 and C2 are aligned. C2-C3: Normal. C3-C4: Mild facet arthritis. No stenosis. C4-C5: Bilateral facet arthritis. No stenosis. C5-C6: Osteophytic ridging and central osteophyte. Mild foraminal narrowing. C6-C7: Osteophytic ridging. Mild foraminal narrowing. C7-T1: Small osteophytes. No stenosis. Calcified LEFT thyroid nodule 11 mm. Lung apices are clear. CT/CT cervical spin wo con* [id number] IMPRESSION: 1. No acute cervical spine fracture. 2. Advanced degenerative disc disease at C6-7 with loss of the normal cortical surface. 3. No high-grade central or foraminal stenosis.
--- NOTE | 2024-12-05 14:51 | CT_ITS ---
WS: [id number] CT HEAD NONCONTRAST HISTORY: fall with altered mentation TECHNIQUE: Contiguous axial imaging performed through the brain. Bone and soft tissue windows. Sagittal and coronal reformats reviewed. All CT scans at [facility] use at least one of these dose optimization techniques: automated exposure control; mA and/or kV adjustment per patient size (includes targeted exams where dose is matched to clinical indication); or iterative reconstruction. DLP: 1282.30 mGy.cm COMPARISON: None available. No acute intracranial hemorrhage, midline shift or mass effect. Moderate symmetric atrophy and small vessel disease. No large territory infarct. Mild cerebellar atrophy. Ventricles: Ventricles are dilated on the basis of atrophy. No inferior displacement the cerebellar tonsils. Paranasal sinuses: Air-fluid level and mucoperiosteal thickening in the RIGHT maxillary sinus. The remaining sinuses are clear. Mastoid air cells: Well pneumatized. Calvarium and scalp: Skull is intact with no soft tissue edema or swelling. Moderate atherosclerotic plaque in the intracranial carotid arteries. CT/CT head wo con* [id number] IMPRESSION: 1. No acute intracranial hemorrhage or edema. 2. Moderate symmetric cerebral atrophy and small vessel disease. 3. Ventriculomegaly on the basis of atrophy. 4. RIGHT maxillary sinusitis.
--- NOTE | 2024-12-05 14:53 | W.ED.AMS ---
HPI - Altered Mental Status General: Chief Complaint: Altered Mental Status Stated Complaint: AMS Time Seen by Provider: 12/05/24 14:44 History of Present Illness: Patient is a 74-year-old female resides at [facility] senior care, presents to ED with fall. She has a baseline confusion on a regular basis. Fall was witnessed, however no information was given from senior care. Patient states she does not think she hit her head. She does not think her confusion is worse. She does not complain of pain anywhere at this time. She does note her mouth is dry. She is status post left above-knee amputation. She does have a history as per nurse of UTIs. Associated symptoms: Deny depression Related Data Home Medications ?Medication ?Instructions ?Recorded ?Confirmed bisacodyl 10 mg rectal suppository [address] DAILY PRN Constipation 09/18/23 12/05/24 bisacodyl 5 mg tablet 5 mg PO DAILY PRN Constipation 09/18/23 12/05/24 carboxymethylcellulose sodium 1 % 1 drp ophthalmic (eye) BID 09/18/23 12/05/24 eye liquid gel drops (Refresh Liquigel) hydrocodone 5 mg-acetaminophen 325 1 tab PO TID PRN Pain 09/18/23 12/05/24 mg tablet magnesium oxide 400 mg PO DAILY 09/18/23 12/05/24 naloxone 0.4 mg/mL injection 0.4 mg SUBCUT Q3M PRN Opioid 09/18/23 12/05/24 solution Overdose white petrolatum-mineral oil 57.3 1 applic ophthalmic (eye) BEDTIME 09/18/23 12/05/24 %-42.5 % eye ointment (Lubricant Eye) acetaminophen 500 mg tablet 1,000 mg PO Q6H PRN Pain 12/05/24 12/05/24 amiodarone 100 mg tablet 100 mg PO DAILY 12/05/24 12/05/24 apixaban 5 mg tablet (Eliquis) 5 mg PO BID 12/05/24 12/05/24 bumetanide 0.5 mg tablet 0.5 mg PO DAILY 12/05/24 12/05/24 cadexomer iodine 0.9 % topical gel See Rx Instructions .Route .COMPLEX 12/05/24 12/05/24 (Iodosorb) metoprolol tartrate 25 mg tablet 25 mg PO BID 12/05/24 12/05/24 nystatin 100,000 unit/gram topical See Rx Instructions .Route .COMPLEX 12/05/24 12/05/24 cream nystatin 100,000 unit/gram topical See Rx Instructions .Route .COMPLEX 12/05/24 12/05/24 powder ([facility]) omeprazole 40 mg capsule,delayed 40 mg PO BID 12/05/24 12/05/24 release ondansetron 4 mg disintegrating 4 mg PO Q6H PRN Nausea And Vomiting 12/05/24 12/05/24 tablet sertraline 50 mg tablet 50 mg PO BEDTIME 12/05/24 12/05/24 Previous Rx's ?Medication ?Instructions ?Recorded cefdinir 300 mg capsule 300 mg PO BID 10 days #20 caps 12/05/24 Allergies Allergy/AdvReac Type Severity Reaction Status Date / Time erythromycin base Allergy Unknown Verified 01/14/23 13:08 Penicillins Allergy Unknown Verified 01/14/23 13:08 Review of Systems General: Reports: 10 or more systems reviewed and unremarkable except in HPI and below Const: Denies: fever(s) or chills Eyes: Denies: change in vision or blurry vision ENMT: Denies: throat pain or mouth pain Card: Denies: chest pain or palpitations Resp: Denies: dyspnea or non-productive cough GI: Denies: abdominal pain, nausea or vomiting : Denies: flank pain or difficulty voiding Musc: Denies: neck pain or back pain Skin/Breast: Denies: rash or pruritus Neuro: Reports: confusion; Denies: headache(s), numbness in extremities, weakness in extremities, Slurred speech present or difficulty communicating thoughts Psych: Denies: anxiety or depression PFSH ED PFSH: Medical History (Updated 12/05/24 @ 15:41 by TING Limon) History of COPD Restless leg syndrome Immunization counseling High risk medication use Ulcers of both lower extremities Seropositive rheumatoid arthritis of multiple sites Chronic ulcer of lower extremity Rheumatoid arthritis Diabetes Renal insufficiency CAD (coronary artery disease) Atrial fibrillation CHF (congestive heart failure) Obstructive sleep apnea Anemia Pulmonary edema Surgical History S/P coronary artery stent placement S/P tonsillectomy S/P appendectomy Family History Other Cancer Heart disease Social History Smoking and tobacco/nicotine status: never used tobacco/nicotine Alcohol intake: never Substance/Drug Use: never Physical Exam Const: COMMON NORMALS: alert ORIENTATION/CONSCIOUSNESS: Yes oriented to person and Yes oriented to place; not oriented to time (chronic) HENMT: COMMON NORMALS: normocephalic and atraumatic HEAD & SCALP: normocephalic and atraumatic Lymph: LYMPHATIC: no lymphadenopathy noted Chest: COMMONS NORMALS: normal inspection of the chest and normal palpation of the breasts Resp: COMMON NORMALS: normal respiratory effort, No retractions, No use of accessory muscles and clear to auscultation bilaterally AUSCULTATION: clear to auscultation bilaterally Cardio: COMMON NORMALS: regular rate and regular rhythm RATE: regular rate RHYTHM: regular rhythm GI: COMMON NORMALS: Normal to inspection, nondistended, normoactive bowel sounds present, Soft to palpation and non-tender PALPATION: Yes Soft to palpation : COMMON NORMALS: Yes no CVA tenderness BLADDER/KIDNEY EXAM: Yes no CVA tenderness Back/Pelvis: COMMON NORMALS: no CVA tenderness Extremity: COMMON NORMALS: normal to inspection, full ROM and capillary refill normal Neuro: COMMON NORMALS: CN's II-XII intact bilaterally, moves all extremities, no focal motor deficits and no sensory deficits noted SENSORIUM/ORIENTATION: Yes alert, Yes oriented to person, Yes oriented to place, No oriented to time (chronic) and Yes Orientation impaired Psych: COMMON NORMALS: mental status grossly normal and Normal thought process present THOUGHT PROCESS: Normal thought process present Skin: COMMON NORMALS: no rashes or lesions noted GENERAL SKIN EXAM: no rashes or lesions noted and erythema (sacral) Course Vital Signs: Vital signs: Vital Signs Temperature 97.7 F 12/05/24 14:44 Pulse Rate 66 12/05/24 16:00 Respiratory Rate 16 12/05/24 15:09 Blood Pressure 158/74 12/05/24 16:00 Pulse Oximetry 97 12/05/24 16:00 Oxygen Delivery Me thod Room Air 12/05/24 16:00 MDM - Altered Mental Status Medical Decision Making Patient is a 74-year-old female resides at senior care that presents after a fall. This was told to be witnessed, however no information was given from the senior care. Paramedics gave report. Patient has a history of frequent UTIs. Will check urinalysis, basic labs, and due to physical assessment with oral mucosa dry give 500 mL of normal saline. I have reviewed her chart, and do not know why she is on Bumex, and there is no echocardiogram in her current chart here. No reason to suspect CHF. Lungs are clear. Patient did not have any pain on palpation throughout all her bones, chest, flank. No midline cervical neck tenderness. Medical Records I reviewed the patient's medical records. Lab Data I reviewed the patient's lab results. 12/05/24 14:35 12/05/24 14:35 Radiology Impressions Cervical Spine CT 12/05/24 14:51 IMPRESSION: 1. No acute cervical spine fracture. 2. Advanced degenerative disc disease at C6-7 with loss of the normal cortical surface. 3. No high-grade central or foraminal stenosis. Head CT 12/05/24 14:51 IMPRESSION: 1. No acute intracranial hemorrhage or edema. 2. Moderate symmetric cerebral atrophy and small vessel disease. 3. Ventriculomegaly on the basis of atrophy. 4. RIGHT maxillary sinusitis. Laboratory Results WBC 5.09 10^3/uL (3.29-11.43) 12/05/24 14:35 RBC 4.03 10^6/uL (3.85-5.65) 12/05/24 14:35 Hgb 12.20 g/dL (11.27-16.99) 12/05/24 14:35 Hct 37.9 % (36-47) 12/05/24 14:35 MCV 94.0 fl (85-98) 12/05/24 14:35 MCH 30.3 pg (27-33) 12/05/24 14:35 MCHC 32.2 g/dL (30-55) 12/05/24 14:35 RDW 13.0 % (12.1-15.1) 12/05/24 14:35 Plt Count 202 10^3/cmm (157-399) 12/05/24 14:35 MPV 9.8 fL (7.4-10.4) 12/05/24 14:35 Neut % (Auto) 54.9 % 12/05/24 14:35 Lymph % (Auto) 34.6 % 12/05/24 14:35 [place] % (Auto) 7.9 % 12/05/24 14:35 Eos % (Auto) 1.4 % 12/05/24 14:35 Baso % (Auto) 0.8 % 12/05/24 14:35 Neut # (Auto) 2.80 10^3/uL (1.8-7.7) 12/05/24 14:35 Lymph # (Auto) 1.8 10^3/uL (0.8-4.8) 12/05/24 14:35 [place] # (Auto) 0.4 10^3/uL (0.2-0.9) 12/05/24 14:35 Eos # (Auto) 0.1 10^3/uL (0.0-0.8) 12/05/24 14:35 Baso # (Auto) 0.0 10^3/uL (0.0-0.1) 12/05/24 14:35 Nucleated RBC % (auto) 0 % 12/05/24 14:35 Nucleated RBCs # 0.0 /100WBC 12/05/24 14:35 Sodium 140 mmol/L (136-145) 12/05/24 14:35 Potassium 4.6 mmol/L (3.5-5.1) 12/05/24 14:35 Chloride 101 mmol/L (98-107) 12/05/24 14:35 Carbon Dioxide 29 mmol/L (22-29) 12/05/24 14:35 Anion Gap 14.6 (5-19) 12/05/24 14:35 BUN 31 mg/dL (8-23) H 12/05/24 14:35 Creatinine 1.0 mg/dL (0.5-0.9) H 12/05/24 14:35 GFR Calculation Not Reportable 12/05/24 14:35 Glucose 265 mg/dL (65-115) H 12/05/24 14:35 Calculated Osmolality 306 mOsm/kg (285-295) H 12/05/24 14:35 Calcium 9.4 mg/dL (8.5-10.5) 12/05/24 14:35 Total Bilirubin 0.3 mg/dL (0.15-1.2) 12/05/24 14:35 AST 30 U/L (0-32) 12/05/24 14:35 ALT 33 U/L (0-33) 12/05/24 14:35 Alkaline Phosphatase 158 U/L (35-105) H 12/05/24 14:35 Total Protein 6.5 g/dL (6.6-8.7) L 12/05/24 14:35 Albumin 3.4 g/dL (3.5-5.2) L 12/05/24 14:35 Globulin 3.1 g/dL (1.3-4.6) 12/05/24 14:35 Urine Color Yellow (Yellow) 12/05/24 14:56 Urine Appearance Clear (CLEAR) 12/05/24 14:56 Urine pH 6.0 (5-7) 12/05/24 14:56 Ur Specific [place] 1.016 (1.005-1.030) 12/05/24 14:56 Urine Protein Trace (Negative) A 12/05/24 14:56 Urine Glucose (UA) Trace (Normal) H 12/05/24 14:56 Urine Ketones Negative (Negative) 12/05/24 14:56 Urine Blood Trace (Negative) A 12/05/24 14:56 Urine Nitrate Negative (Negative) 12/05/24 14:56 Urine Bilirubin Negative (Negative) 12/05/24 14:56 Urine Urobilinogen 0.2 mg/dL (Negative) 12/05/24 14:56 Ur Leukocyte Esterase 2+ (Negative) A 12/05/24 14:56 Urine RBC 0-4 /hpf (0-2) H 12/05/24 14:56 Urine WBC >100 /hpf (0-5) H 12/05/24 14:56 Ur Squamous Epith Cells 5-10 /hpf (0-5) H 12/05/24 14:56 Amorphous Sediment Not Reportable 12/05/24 14:56 Urine Bacteria None /hpf (NONE) 12/05/24 14:56 Hyaline Casts 0-4 /lpf H 12/05/24 14:56 Other Casts Wbc cast /lpf 12/05/24 14:56 All radiology interpretation(s) finalized by discharge Discharge Plan Discharge Patient Disposition: Home Clinical Impression: Pyuria Fall Qualifiers: Encounter type: initial encounter Qualified Code(s): W19.XXXA - Unspecified fall, initial encounter Condition: Stable Prescriptions: New cefdinir 300 mg capsule 300 mg PO BID 10 Days Qty: 20 0RF No Action hydrocodone-acetaminophen 5-325 mg tablet 1 tab PO TID PRN (Reason: Pain) naloxone 0.4 mg/mL Solution 0.4 mg SUBCUT Q3M PRN (Reason: Opioid Overdose) Rx Instructions: NTExceed 10 mg total dose/episode bisacodyl 10 mg Suppository [address] DAILY PRN (Reason: Constipation) carboxymethylcellulose sodium [Refresh Liquigel] 1 % Drops, Liquid Gel 1 drp OPHTHALMIC (EYE) BID Lubricant Eye 57.3-42.5 % Ointment 1 applic OPHTHALMIC (EYE) BEDTIME magnesium oxide 400 mg magnesium Tablet 400 mg PO DAILY bisacodyl 5 mg Tablet 5 mg PO DAILY PRN (Reason: Constipation) Iodosorb 0.9 % Gel See Rx Instructions .ROUTE .COMPLEX Rx Instructions: Cleanse with Ns and gauze, apply gel to wound bed and cover with bordered foam dressing every shift. omeprazole 40 mg capsule,delayed release(DR/EC) 40 mg PO BID acetaminophen 500 mg tablet 1,000 mg PO Q6H PRN (Reason: Pain) bumetanide 0.5 mg tablet 0.5 mg PO DAILY nystatin 100,000 unit/gram cream See Rx Instructions .ROUTE .COMPLEX Rx Instructions: Apply once per shift under both breasts and abdominal folds until healed. nystatin [Nyamyc] 100,000 unit/gram powder See Rx Instructions .ROUTE .COMPLEX Rx Instructions: Apply to skin forlds and affected areas twice daily as needed. ondansetron 4 mg tablet,disintegrating 4 mg PO Q6H PRN (Reason: Nausea And Vomiting) sertraline 50 mg tablet 50 mg PO BEDTIME amiodarone 100 mg tablet 100 mg PO DAILY metoprolol tartrate 25 mg tablet 25 mg PO BID Eliquis 5 mg tablet 5 mg PO BID Discharge Orders: Discharge ED (Routine); Ordered 12/05/24 Ordered By: Marcia Pearce Referrals: Sonido Alvarado DO [Primary Care Provider, Internal Medicine] Discharge Diet: Usual diet Discharge Activity: Resume usual activity and Use walker/crutches as instructed Patient Instructions: Altered Mental Status (ED), Fall Prevention (ED), Patient Portal & [employer] Instructions Activity Restrictions/Additional Instructions: Return to ED for worsening confusion, fever greater than 100.4 ?F Take antibiotics as prescribed. Utilize a probiotic or active culture yogurt to avoid infectious diarrhea Call facility doctor for follow-up within the next 1 week. You have a urinary tract infection, however your culture is pending. Antibiotics have been sent to the pharmacy in the interim. Print Language: Palauan Coding Level of Care Code ED Teaching Pastor for Italo Ohara
--- OUTSIDE RECORDS SUMMARY | 2024-12-05 14:56 | XMS_ITS | Clinical Summary ---
Author Organization [facility] Facility Address [address] [address] Care Team Providers Care Earth Science Faculty Member Name Role Phone Sonido Alvarado DO Primary Care Provider Unavaila ble Allergies Active Allergy Reactions Criticality Noted Date Comments Erythromycin Diarrhea 06/21/2019 Penicillins 06/20/2018 Raspberry 10/08/2021 Medications * This document contains information received from the source organization and may not represent a complete record from that organization. tiotropium (SPIRIVA) 18 MCG per inhalation capsule Place 1 capsule into inhaler and inhale 2 (two) times a day Active atorvastatin (LIPITOR) 10 MG tablet Take 10 mg by mouth 1 (one) time each day Active rOPINIRole (REQUIP) 2 MG tablet Take 3 mg by mouth every night Active acetaminophen (TYLENOL 8 HOUR) 650 MG 8 hr tablet Take 650 mg by mouth every 6 (six) hours if needed for mild pain Do not crush, chew, or split. Active HYDROcodone-ceci taminophen (NORCO) 7.5-325 MG per tablet Take 1 tablet by mouth 3 (three) times a day if needed for moderate pain Active albuterol HFA (PROVENTIL HFA;VENTOLIN HFA) 108 (90 Base) MCG/ACT inhaler Inhale 2 puffs every 6 (six) hours if needed for wheezing Active bumetanide (BUMEX) 2 MG tablet Take 2 mg by mouth 1 (one) time each day Pt takes 1-2mg in am and 1-1mg in pm Active metOLazone 5 MG tabletIndicatio ns:Fluid overload, not otherwise specified Take 1 tablet (5 mg total) by mouth per week 4 tablet 11 1 Active Additional Information Patient taking differently:5 mg OralDaily, Reported on 05/21/2023 potassium chloride (KLOR-CON) 20 MEQ packet Take 40 mEq by mouth 1 (one) time each day Active leflunomide (ARAVA) 10 MG tablet Take 20 mg by mouth 1 (one) time each day Active metoprolol succinate XL (TOPROL-XL) 100 MG 24 hr tablet Take 100 mg by mouth 1 (one) time each day Do not crush or chew. Active omeprazole (PriLOSEC) [address] capsule Take 20 mg by mouth 1 (one) time each day Do not crush or chew. Active ondansetron (ZOFRAN) 8 MG tablet Take by mouth every 8 (eight) hours if needed for nausea or vomiting Active bumetanide (BUMEX) 1 MG tablet Take 1 mg by mouth 1 (one) time each day Active ARTIFICIAL TEAR OP Administer into affected eye(s) Active bisacodyl (DULCOLAX) 5 MG EC tablet Take 5 mg by mouth 1 (one) time each day if needed for constipation Do not crush, chew, or split. Active VITAMIN D PO Take 2,000 Units by mouth 1 (one) time each day Active insulin glargine (LANTUS) 100 UNIT/ML injection Inject 10 Units under the skin every night Active fluticasone (FLONASE) 50 MCG/ACT nasal spray Administer 1 spray into each nostril 1 (one) time each day Active Magnesium 400 MG tablet Take by mouth Active Melatonin 1 MG capsule Take 2 capsules by mouth every night Active Active Problems Problem Noted Date Diagnosed Date Stage 3a chronic kidney disease 06/20/2018 Diabetes mellitus 06/20/2018 Essential (primary) hypertension 06/20/2018 Hyperkalemia 06/20/2018 Family History Medical History Relation Comments Cancer Father Diabetes Mother Relation Status Comments Father Mother Social History Tobacco Use Types Packs/Day Years Used Date Smoking Tobacco: Never Smokeless Tobacco: Never Tobacco Cessation:Counseling Given: Not Answered Alcohol Use Standard Drinks/Week Comments Never 0 (1 standard drink = 0.6 oz pur e alcohol) AUDIT-C Answer Date Recorded Frequency of Alcohol Consumption Never 06/22/2018 Average Number of Drinks Not on file 019 Frequency of Binge Drinking Not on file 06/04 Comments Unknown Sex and Gender Information Value Date Recorded Sex Assigned at Not on file Legal Sex Female 12:47 PM EST Gender Identity Not on file Sexual Orientation Not on file Last Filed Vital Signs Vital Sign Reading Time Taken Comments Blood Pressure 108/64 11/09/2022 2:11 PM CDT Pulse 57 11/09/2022 2:11 PM CDT Temperature 36.8 C (98.3 F) 12/27/2019 2:14 PM CDT Respiratory Rate - - Oxygen Saturation 97% 11/09/2022 2:11 PM CDT Inhaled Oxygen Concentration - - Weight 63 kg (139 lb) 11/09/2022 2:11 PM CDT Height 149.9 cm (4' 11 ) 11/09/2022 2:11 PM CDT Body Mass Index 28.07 11/09/2022 2:11 PM CDT Plan of Treatment Health Maintenance Due Date Last Done Comments Breast Cancer Screening 1950 Pneumococcal Vaccine: 50+ Years (1 of 2 - PCV) 1970 Colorectal Cancer Screening: Annual FOBT 2000 Colorectal Cancer Screening: Colonoscopy 2000 Colorectal Cancer Screening: Sigmoidoscopy 2000 Diabetes: Ophthalmology Exam 06/20/2018 Diabetes: Pedal Pulse Checked 06/20/2018 Diabetes: Sensory Foot Exam 06/20/2018 Diabetes: Visual Foot Exam 06/20/2018 Diabetes: Hemoglobin A1C 04/17/2020 020, 04/19/2019, 01/18/2019, Additional history exists Influenza Vaccine (#1) 2025 Hepatitis B Vaccine Aged Out No longe r eligible based on patient's age to complete this topic Procedures Procedure Name Priority Date/Time Associated Diagnosis Comments HEMOGLOBIN A1C (EXTERNAL RESULT ENTRY) Routine 01/17/2020 5:40 AM CDT from Last 3 Months or Most Recently Relevant to Health Maintenance Results * Hemoglobin A1C (01/17/2020 5:40 AM CDT) Hemoglobin A1C 5.6 Blood specimen (specimen) Venous blood / Unknown 01/17/2020 5:40 AM CDT Aps External Provider LAB BLOOD ORDERABLES Final Result from Last 3 Months or Most Recently Relevant to Health Maintenance Insurance Medicaid [place] ([id number]) Care Teams Earth Science Faculty Member Relationship Specialty Start Date End Date Sonido Alvarado DO PCP - General Internal Medicine 06/06/18
--- OUTSIDE RECORDS SUMMARY | 2024-12-05 14:57 | XMS_ITS | Encounter Summary ---
Author Organization [facility], [facility] Address [address] [place] [address] Phone Care Team Providers Care Sandwich Peddler Name Role Phone Sonido Alvarado DO Primary Care Provider Unavaila ble Encounter Details Date Type Department Care Team (Late st Contact Info) Description 06/16/2019 Orders Only [facility], [facility] [address] [place] [address] Evelio Mario MD [address] [place] [address] Chronic kidney disease stage 3 (HCC) Social History Tobacco Use Types Packs/Day Years Used Date Smoking Tobacco: Never Smokeless Tobacco: Never Alcohol Use Standard Drinks/Week Comments Never 0 [...] on file Sexual Orientation Not on file documented as of this encounter Plan of Treatment Not on file documented as of this encounter Procedures Procedure Name Priority Date/Time Associated Diagnosis Comments URINE ALBUMIN / CREATININE RATIO Routine 06/08/2019 2:16 PM SOLAR DEVELOPMENT ENGINEER Chronic kidney disease stage 3 (HCC) documented in this encounter Results * Urine albumin / creatinine ratio (06/08/2019 2:16 PM SOLAR DEVELOPMENT ENGINEER) Urine Microalbumin 3.9 mg/dL Creatinine, Urine Random 30.7 mg/dL Microalb/Creat Ratio 127 30 - 300 ug/mg creat Urine specimen (specimen) 06/08/2019 2:16 PM SOLAR DEVELOPMENT ENGINEER Vinicius Roz Cano MA - 06/09/2019 3:32 PM SOLAR DEVELOPMENT ENGINEER architectural project captain lab [employer] [facility] [address] [place] [id number] CLIA #[id number] Tubing Mill Setter: Octavio Perez PhD us Evelio Mario MD LAB URINE ORDERABLES Fi nal Result documented in this encounter Visit Diagnoses Diagnosis Chronic kidney disease stage 3 (HCC) documented in this encounter Care Teams Sandwich Peddler Relationship Specialty Start Date End Date Sonido Alvarado DO PCP - General Internal Medicine 06/06/18 documented as of this encounter
--- OUTSIDE RECORDS SUMMARY | 2024-12-05 14:57 | XMS_ITS | Encounter Summary ---
Author Organization [facility], [facility] Address [address] [place] [address] Phone Care Team Providers Care Pharmacy Order Entry Technician Name Role Phone Sonido Alvarado DO Primary Care Provider Unavaila ble Encounter Details Date Type Department Care Team (Late st Contact Info) Description 12/20/2018 Orders Only [facility] [address] [place] [address] Evelio Mario MD [address] [place] [address] Chronic kidney disease stage 3 Social History Tobacco Use Types Packs/Day Years [...] Comments URINE ALBUMIN / CREATININE RATIO Routine 12/12/2018 1:24 PM CDT Chronic kidney disease stage 3 VITAMIN D 25 HYDROXY Routine 12/07/2018 5:23 AM CDT Chronic kidney disease stage 3 CBC Routine 12/07/2018 5:23 AM CDT Chronic kidney disease stage 3 PTH, INTACT Routine 12/07/2018 5:23 AM CDT Chronic kidney disease stage 3 RENAL FUNCTION PANEL Routine 12/07/2018 5:23 AM CDT Chronic kidney disease stage 3 documented in this encounter Results * Urine albumin / creatinine ratio (12/12/2018 1:24 PM CDT) Microalbumin 4.8 Creatinine, Urine 22.6 mg/dL Urine specimen (specimen) 12/12/2018 1:24 PM CDT Antonella Ortiz MA - 12/13/2018 7:45 AM CDT [facility] [address] [place] [address] CLIA #[id number] Sales And Service Engineer: Octavio Perez PhD Evelio Mario MD LAB URINE ORDERABLES Fi nal Result * Vit D 25 hydroxy (12/07/2018 5:23 AM CDT) Vitamin D, 25-OH, Total 53.7 ng/mL Vitamin D, 25-OH, D3 2.0 Vitamin D, Comment 55.7 Comment:25-OH Vit D2 D3 tota l Blood specimen (specimen) 12/07/2018 5:23 AM CDT Antonella Ortiz MA - 12/12/2018 12:32 PM CDT [facility] [address] [place] [address] CLIA #[id number] Sales And Service Engineer: Octavio Perez PhD Evelio Mario MD LAB BLOOD ORDERABLES Fi nal Result * PTH, intact (CKD3a) (12/07/2018 5:23 AM CDT) Parathyroid Hormone, Intact 100.7 pg/mL Blood specimen (specimen) 12/07/2018 5:23 AM CDT [facility] Mingo Venegas MA - 12/08/2018 7:57 AM CDT [facility] [address] [place] [address] CLIA #[id number] Sales And Service Engineer: Octavio Perez PhD Evelio Mario MD LAB BLOOD ORDERABLES Fi nal Result * CBC (CKD3a) (12/07/2018 5:23 AM CDT) WBC 4.8 K/uL Red Blood Cell Count 3.80 Hemoglobin 12.1 g/dL Hematocrit 35.7 % MCV 93.9 MCH 31.9 MCHC 34.0 RDW 14.0 Platelet Count 216 Absolute Neutrophils 2.10 Absolute Lymphocytes 2.20 Absolute Monocytes 0.40 Absolute Eosinophils 0.00 Absolute Basophils 0.00 Neutrophils 43.2 K/uL Lymphocytes 45.6 Monocytes 9.3 Eosinophils 0.9 Basophils 1.0 Blood specimen (specimen) 12/07/2018 5:23 AM CDT [facility] Mingo Venegas MA - 12/08/2018 7:53 AM CDT [facility] [address] [place] [address] CLIA #[id number] Sales And Service Engineer: Octavio Perez PhD Evelio Mario MD LAB BLOOD ORDERABLES Fi nal Result * (ABNORMAL) RFP (CKD3a) (12/07/2018 5:23 AM CDT) Albumin 2.8(A) 3.5 - 5.0 g/dL BUN 26(A) 4 - 21 mg/dL BUN/Creatinine Ratio 24.00 Calcium 9.0 8.7 - 10.7 mg/dL Chloride 101 99 - 108 Bicarbonate (CO2) 27 22 - 30 mmol/L Creatinine 1.10 0.50 - 1.10 mg/dL eGFR 60.0 mL/min/1.7 3m*2 eGFR Non- 49.0 mL/min/1.7 3m*2 Glucose 82 Phosphorus, Serum 4.1 Potassium 4.2 3.4 - 5.5 Sodium 136(A) 137 - 147 Blood specimen (specimen) 12/07/2018 5:23 AM CDT Mingo Lima MA - 12/08/2018 7:55 AM CDT [facility] [address] [place] [address] [place] #[id number] Sales And Service Engineer: Octavio Perez PhD Evelio Mario MD LAB BLOOD ORDERABLES Fi nal Result documented in this encounter Visit Diagnoses Diagnosis Chronic kidney disease stage 3 (HCC) documented in this encounter Care Teams Pharmacy Order Entry Technician Relationship Specialty Start Date End Date Soindo Alvarado DO PCP - General Internal Medicine 06/06/18 documented as of this encounter
--- OUTSIDE RECORDS SUMMARY | 2024-12-05 14:58 | XMS_ITS | Continuity of Care Document ---
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 09/27/2023 Active Disruption of external operation (surgical) wound, not elsewhere classified, subsequent encounter T81.31XD 09/27/2023 Active snf (current) use of anticoagulants Z79.01 09/27/2023 Active Rheumatoid arthritis, unspecified M06.9 07/17/2017 Active Other chronic pain G89.29 07/17/2017 Ac tive Chronic obstructive pulmonary disease, unspecified J44.9 07/17/2017 Active Type 2 diabetes mellitus with diabetic peripheral angiopathy without gangrene E11.51 09/27/2023 Active Type 2 diabetes mellitus with hyperglycemia E11.65 09/27/2023 Active Type 2 diabetes mellitus with diabetic chronic kidney disease E11.22 05/06/2021 Active Type 2 diabetes mellitus with mild nonproliferative diabetic retinopathy without macular edema, bilateral E11.3293 11/27/2022 Active [employer] (current) use of insulin Z79.4 07/02/2022 Active Chronic venous hypertension (idiopathic) without complications of bilateral lower extremity I87.303 02/04/2021 Active Chronic kidney disease, stage 3b N18.32 09/27/2023 Active Urinary tract infection, site not specified N39.0 02/09/2024 Active Paroxysmal atrial fibrillation I48.0 09/27/2023 Active 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 4 chronic kidney disease, or unspecified chronic kidney disease I13.0 05/05/2022 Active Heart failure, unspecified I50.9 07/17/2017 Active Hyperlipidemia, unspecified E78.5 07/17/2017 Active Major depressive disorder, recurrent, in partial remission F33.41 09/08/2022 Active Restless legs syndrome G25.81 07/17/2017 Active Insomnia, unspecified G47.00 12/10/2022 Active Unspecified osteoarthritis, unspecified site M19.90 04/02/2023 Active Vitamin D deficiency, unspecified E55.9 12/24/2020 Active Hypo-osmolality and hyponatremia E87.1 08/04/2018 Active Gastro-esophageal reflux disease without esophagitis K21.9 07/17/2017 Active Constipation, unspecified K59.00 03/13/2020 Active Dry eye syndrome of bilateral lacrimal glands H04.123 02/13/2022 Active Nonscarring hair loss, unspecified L65.9 04/08/2023 Active Obesity, unspecified E66.9 01/10/2019 Active Body mass index (BMI) 21.0-21.9, adult Z68.21 01/30/2024 Active 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 Refere nce Range Blood chemistry[[id number]] Glucose [Mass/volume] in Serum or Plasma [2345-7] 09/04/2024 11:53 AM 156 mg/dL N Blood chemistry[[id number]] Glucose [Mass/volume] in Serum or Plasma [2345-7] 09/03/2024 04:02 PM 223 mg/dL N Blood chemistry[[id number]] Glucose [Mass/volume] in Serum or Plasma [2345-7] 09/03/2024 12:34 PM 276 mg/dL N Blood chemistry[[id number]] Glucose [Mass/volume] in Serum or Plasma [2345-7] 09/02/2024 04:12 PM 254 mg/dL N Blood chemistry[[id number]] Glucose [Mass/volume] in Serum or Plasma [2345-7] 09/02/2024 02:23 PM 211 mg/dL N Blood chemistry[[id number]] Glucose [Mass/volume] in Serum or Plasma [2345-7] 09/01/2024 12:14 PM 231 mg/dL N Blood chemistry[[id number]] Glucose [Mass/volume] in Serum or Plasma [2345-7] 09/01/2024 01:49 PM 184 mg/dL N Blood chemistry[[id number]] Glucose [Mass/volume] in Serum or Plasma [2345-7] 08/31/2024 11:24 AM 259 mg/dL N Blood chemistry[[id number]] Glucose [Mass/volume] in Serum or Plasma [2345-7] 08/31/2024 12:51 PM 260 mg/dL N Blood chemistry[[id number]] Glucose [Mass/volume] in Serum or Plasma [2345-7] 08/30/2024 01:01 PM 251 mg/dL N Blood chemistry[[id number]] Glucose [Mass/volume] in Serum or Plasma [2345-7] 08/30/2024 11:28 AM 164 mg/dL N Blood chemistry[[id number]] Glucose [Mass/volume] in Serum or Plasma [2345-7] 08/29/2024 12:34 PM 318 mg/dL N Blood chemistry[[id number]] Glucose [Mass/volume] in Serum or Plasma [2345-7] 08/29/2024 12:43 PM 107 mg/dL N Blood chemistry[[id number]] Glucose [Mass/volume] in Serum or Plasma [2345-7] 08/28/2024 12:14 PM 232 mg/dL N Blood chemistry[[id number]] Glucose [Mass/volume] in Serum or Plasma [2345-7] 08/28/2024 01:23 PM 116 mg/dL N Blood chemistry[[id number]] Glucose [Mass/volume] in Serum or Plasma [2345-7] 08/27/2024 01:43 PM 274 mg/dL N Blood chemistry[[id number]] Glucose [Mass/volume] in Serum or Plasma [2345-7] 08/27/2024 12:01 PM 166 mg/dL N Blood chemistry[] Glucose [Mass/volume] in Serum or Plasma [2345-7] 08/26/2024 01:20 PM 242 mg/dL N Blood chemistry[[id number]] Glucose [Mass/volume] in Serum or Plasma [2345-7] 08/26/2024 01:01 PM 114 mg/dL N Blood chemistry[[id number]] Glucose [Mass/volume] in Serum or Plasma [2345-7] 08/25/2024 12:21 PM 190 mg/dL N Blood chemistry[[id number]] Glucose [Mass/volume] in Serum or Plasma [2345-7] 08/25/2024 01:17 PM 187 mg/dL N Blood chemistry[[id number]] Glucose [Mass/volume] in Serum or Plasma [2345-7] 08/24/2024 01:02 PM 194 mg/dL N Blood chemistry[[id number]] Glucose [Mass/volume] in Serum or Plasma [2345-7] 08/24/2024 11:21 AM 150 mg/dL N Blood chemistry[[id number]] Glucose [Mass/volume] in Serum or Plasma [2345-7] 08/23/2024 12:03 PM 252 mg/dL N Blood chemistry[[id number]] Glucose [Mass/volume] in Serum or Plasma [2345-7] 08/23/2024 12:30 PM 178 mg/dL N Blood chemistry[[id number]] Glucose [Mass/volume] in Serum or Plasma [2345-7] 08/22/2024 11:59 AM 230 mg/dL N Blood chemistry[[id number]] Glucose [Mass/volume] in Serum or Plasma [2345-7] 08/22/2024 11:46 AM 166 mg/dL N Blood chemistry[[id number]] Glucose [Mass/volume] in Serum or Plasma [2345-7] 08/21/2024 12:45 PM 324 mg/dL N Blood chemistry[[id number]] Glucose [Mass/volume] in Serum or Plasma [2345-7] 08/21/2024 11:50 AM 121 mg/dL N Blood chemistry[[id number]] Glucose [Mass/volume] in Serum or Plasma [2345-7] 08/20/2024 01:33 PM 262 mg/dL N Blood chemistry[[id number]] Glucose [Mass/volume] in Serum or Plasma [2345-7] 08/20/2024 12:03 PM 116 mg/dL N Blood chemistry[[id number]] Glucose [Mass/volume] in Serum or Plasma [2345-7] 08/19/2024 01:01 PM 204 mg/dL N Blood chemistry[[id number]] Glucose [Mass/volume] in Serum or Plasma [2345-7] 08/19/2024 01:40 PM 183 mg/dL N Blood chemistry[[id number]] Glucose [Mass/volume] in Serum or Plasma [2345-7] 08/18/2024 01:31 PM 421 mg/dL N Blood chemistry[[id number]] Glucose [Mass/volume] in Serum or Plasma [2345-7] 08/18/2024 11:21 AM 252 mg/dL N Blood chemistry[[id number]] Glucose [Mass/volume] in Serum or Plasma [2345-7] 08/17/2024 11:46 AM 248 mg/dL N Blood chemistry[[id number]] Glucose [Mass/volume] in Serum or Plasma [2345-7] 08/17/2024 02:15 PM 121 mg/dL N Blood chemistry[[id number]] Glucose [Mass/volume] in Serum or Plasma [2345-7] 08/16/2024 11:53 AM 210 mg/dL N Blood chemistry[[id number]] Glucose [Mass/volume] in Serum or Plasma [2345-7] 08/16/2024 12:42 PM 126 mg/dL N Blood chemistry[[id number]] Glucose [Mass/volume] in Serum or Plasma [2345-7] 08/15/2024 12:00 PM 163 mg/dL N Blood chemistry[[id number]] Glucose [Mass/volume] in Serum or Plasma [2345-7] 08/15/2024 02:53 PM 131 mg/dL N Blood chemistry[[id number]] Glucose [Mass/volume] in Serum or Plasma [2345-7] 08/14/2024 12:41 PM 227 mg/dL N Blood chemistry[[id number]] Glucose [Mass/volume] in Serum or Plasma [2345-7] 08/14/2024 01:12 PM 125 mg/dL N Blood chemistry[[id number]] Glucose [Mass/volume] in Serum or Plasma [2345-7] 08/13/2024 03:30 PM 145 mg/dL N Blood chemistry[[id number]] Glucose [Mass/volume] in Serum or Plasma [2345-7] 08/13/2024 01:21 PM 112 mg/dL N Blood chemistry[[id number]] Glucose [Mass/volume] in Serum or Plasma [2345-7] 08/12/2024 03:24 PM 112 mg/dL N Blood chemistry[[id number]] Glucose [Mass/volume] in Serum or Plasma [2345-7] 08/12/2024 02:41 PM 191 mg/dL N Blood chemistry[[id number]] Glucose [Mass/volume] in Serum or Plasma [2345-7] 08/11/2024 04:51 PM 279 mg/dL N Blood chemistry[[id number]] Glucose [Mass/volume] in Serum or Plasma [2345-7] 08/11/2024 01:20 PM 143 mg/dL N Blood chemistry[[id number]] Glucose [Mass/volume] in Serum or Plasma [2345-7] 08/10/2024 11:43 AM 116 mg/dL N Blood chemistry[[id number]] Glucose [Mass/volume] in Serum or Plasma [2345-7] 08/10/2024 02:26 PM 180 mg/dL N Blood chemistry[[id number]] Glucose [Mass/volume] in Serum or Plasma [2345-7] 08/09/2024 11:30 AM 251 mg/dL N Blood chemistry[[id number]] Glucose [Mass/volume] in Serum or Plasma [2345-7] 08/09/2024 12:50 PM 103 mg/dL N Blood chemistry[[id number]] Glucose [Mass/volume] in Serum or Plasma [2345-7] 08/08/2024 11:58 AM 361 mg/dL N Blood chemistry[[id number]] Glucose [Mass/volume] in Serum or Plasma [2345-7] 08/08/2024 11:47 AM 108 mg/dL N Blood chemistry[[id number]] Glucose [Mass/volume] in Serum or Plasma [2345-7] 08/07/2024 12:49 PM 259 mg/dL N Blood chemistry[[id number]] Glucose [Mass/volume] in Serum or Plasma [2345-7] 08/07/2024 01:45 PM 101 mg/dL N Blood chemistry[[id number]] Glucose [Mass/volume] in Serum or Plasma [2345-7] 08/06/2024 12:37 PM 270 mg/dL N Blood chemistry[[id number]] Glucose [Mass/volume] in Serum or Plasma [2345-7] 08/06/2024 12:21 PM 95 mg/dL N Blood chemistry[[id number]] Glucose [Mass/volume] in Serum or Plasma [2345-7] 08/05/2024 04:37 PM 180 mg/dL N Blood chemistry[[id number]] Glucose [Mass/volume] in Serum or Plasma [2345-7] 08/05/2024 12:04 PM 104 mg/dL N Blood chemistry[[id number]] Glucose [Mass/volume] in Serum or Plasma [2345-7] 08/04/2024 11:57 AM 200 mg/dL N Blood chemistry[[id number]] Glucose [Mass/volume] in Serum or Plasma [2345-7] 08/04/2024 02:43 PM 190 mg/dL N Blood chemistry[[id number]] Glucose [Mass/volume] in Serum or Plasma [2345-7] 08/03/2024 12:02 PM 164 mg/dL N Blood chemistry[[id number]] Glucose [Mass/volume] in Serum or Plasma [2345-7] 08/03/2024 03:24 PM 127 mg/dL N Blood chemistry[[id number]] Glucose [Mass/volume] in Serum or Plasma [2345-7] 08/02/2024 12:04 PM 187 mg/dL N Blood chemistry[[id number]] Glucose [Mass/volume] in Serum or Plasma [2345-7] 08/02/2024 12:17 PM 118 mg/dL N Blood chemistry[[id number]] Glucose [Mass/volume] in Serum or Plasma [2345-7] 08/01/2024 11:43 AM 279 mg/dL N Blood chemistry[[id number]] Glucose [Mass/volume] in Serum or Plasma [2345-7] 08/01/2024 02:49 PM 145 mg/dL N Blood chemistry[[id number]] Glucose [Mass/volume] in Serum or Plasma [2345-7] 07/31/2024 01:14 PM 387 mg/dL N Blood chemistry[[id number]] Glucose [Mass/volume] in Serum or Plasma [2345-7] 07/31/2024 12:33 PM 126 mg/dL N Blood chemistry[[id number]] Glucose [Mass/volume] in Serum or Plasma [2345-7] 07/30/2024 12:33 PM 311 mg/dL N Blood chemistry[[id number]] Glucose [Mass/volume] in Serum or Plasma [2345-7] 07/30/2024 02:21 PM 103 mg/dL N Blood chemistry[[id number]] Glucose [Mass/volume] in Serum or Plasma [2345-7] 07/29/2024 02:51 PM 391 mg/dL N Blood chemistry[[id number]] Glucose [Mass/volume] in Serum or Plasma [2345-7] 07/29/2024 11:26 AM 188 mg/dL N Blood chemistry[[id number]] Glucose [Mass/volume] in Serum or Plasma [2345-7] 07/28/2024 12:31 PM 393 mg/dL N Blood chemistry[[id number]] Glucose [Mass/volume] in Serum or Plasma [2345-7] 07/28/2024 02:10 PM 141 mg/dL N Blood chemistry[[id number]] Glucose [Mass/volume] in Serum or Plasma [2345-7] 07/27/2024 12:30 PM 274 mg/dL N Blood chemistry[[id number]] Glucose [Mass/volume] in Serum or Plasma [2345-7] 07/27/2024 02:09 PM 110 mg/dL N Blood chemistry[[id number]] Glucose [Mass/volume] in Serum or Plasma [2345-7] 07/26/2024 11:49 AM 361 mg/dL N Blood chemistry[[id number]] Glucose [Mass/volume] in Serum or Plasma [2345-7] 07/26/2024 03:51 PM 117 mg/dL N Blood chemistry[[id number]] Glucose [Mass/volume] in Serum or Plasma [2345-7] 07/25/2024 12:00 PM 285 mg/dL N Blood chemistry[[id number]] Glucose [Mass/volume] in Serum or Plasma [2345-7] 07/25/2024 11:54 AM 156 mg/dL N Blood chemistry[[id number]] Glucose [Mass/volume] in Serum or Plasma [2345-7] 07/24/2024 12:39 PM 340 mg/dL N Blood chemistry[[id number]] Glucose [Mass/volume] in Serum or Plasma [2345-7] 07/24/2024 03:28 PM 99 mg/dL N Blood chemistry[[id number]] Glucose [Mass/volume] in Serum or Plasma [2345-7] 07/23/2024 01:22 PM 326 mg/dL N Blood chemistry[[id number]] Glucose [Mass/volume] in Serum or Plasma [2345-7] 07/23/2024 11:59 AM 106 mg/dL N Blood chemistry[[id number]] Glucose [Mass/volume] in Serum or Plasma [2345-7] 07/22/2024 11:37 AM 278 mg/dL N Blood chemistry[[id number]] Glucose [Mass/volume] in Serum or Plasma [2345-7] 07/22/2024 12:08 PM 62 mg/dL N Blood chemistry[[id number]] Glucose [Mass/volume] in Serum or Plasma [2345-7] 07/21/2024 12:26 PM 200 mg/dL N Blood chemistry[[id number]] Glucose [Mass/volume] in Serum or Plasma [2345-7] 07/21/2024 01:19 PM 152 mg/dL N Blood chemistry[[id number]] Glucose [Mass/volume] in Serum or Plasma [2345-7] 07/20/2024 11:43 AM 301 mg/dL N Blood chemistry[[id number]] Glucose [Mass/volume] in Serum or Plasma [2345-7] 07/20/2024 11:04 AM 158 mg/dL N Blood chemistry[[id number]] Glucose [Mass/volume] in Serum or Plasma [2345-7] 07/19/2024 11:34 AM 228 mg/dL N Blood chemistry[[id number]] Glucose [Mass/volume] in Serum or Plasma [2345-7] 07/19/2024 11:28 AM 104 mg/dL N Blood chemistry[[id number]] Glucose [Mass/volume] in Serum or Plasma [2345-7] 07/18/2024 12:06 PM 246 mg/dL N Blood chemistry[[id number]] Glucose [Mass/volume] in Serum or Plasma [2345-7] 07/18/2024 12:17 PM 172 mg/dL N Blood chemistry[[id number]] Glucose [Mass/volume] in Serum or Plasma [2345-7] 07/17/2024 12:09 PM 233 mg/dL N Blood chemistry[[id number]] Glucose [Mass/volume] in Serum or Plasma [2345-7] 07/17/2024 11:49 AM 233 mg/dL N Blood chemistry[[id number]] Glucose [Mass/volume] in Serum or Plasma [2345-7] 07/17/2024 01:53 PM 121 mg/dL N Blood chemistry[[id number]] Glucose [Mass/volume] in Serum or Plasma [2345-7] 07/16/2024 12:34 PM 541 mg/dL N Blood chemistry[[id number]] Glucose [Mass/volume] in Serum or Plasma [2345-7] 07/16/2024 12:40 PM 190 mg/dL N Blood chemistry[[id number]] Glucose [Mass/volume] in Serum or Plasma [2345-7] 07/15/2024 12:24 PM 185 mg/dL N Blood chemistry[[id number]] Glucose [Mass/volume] in Serum or Plasma [2345-7] 07/15/2024 11:55 AM 92 mg/dL N Blood chemistry[[id number]] Glucose [Mass/volume] in Serum or Plasma [2345-7] 07/14/2024 01:03 PM 389 mg/dL N Blood chemistry[[id number]] Glucose [Mass/volume] in Serum or Plasma [2345-7] 07/14/2024 12:13 PM 120 mg/dL N Blood chemistry[[id number]] Glucose [Mass/volume] in Serum or Plasma [2345-7] 07/13/2024 01:11 PM 185 mg/dL N Blood chemistry[[id number]] Glucose [Mass/volume] in Serum or Plasma [2345-7] 07/13/2024 11:53 AM 120 mg/dL N Blood chemistry[[id number]] Glucose [Mass/volume] in Serum or Plasma [2345-7] 07/12/2024 11:40 AM 254 mg/dL N Glucose [Mass/volume] in Serum or Plasma [2345-7] 07/12/2024 11:40 AM 254 mg/dL N Blood chemistry[[id number]] Glucose [Mass/volume] in Serum or Plasma [2345-7] 07/12/2024 01:21 PM 151 mg/dL N Blood chemistry[[id number]] Glucose [Mass/volume] in Serum or Plasma [2345-7] 07/11/2024 11:45 AM 223 mg/dL N Blood chemistry[[id number]] Glucose [Mass/volume] in Serum or Plasma [2345-7] 07/11/2024 02:19 PM 256 mg/dL N Blood chemistry[[id number]] Glucose [Mass/volume] in Serum or Plasma [2345-7] 07/10/2024 02:18 PM 256 mg/dL N Blood chemistry[[id number]] Glucose [Mass/volume] in Serum or Plasma [2345-7] 07/10/2024 12:34 PM 157 mg/dL N Blood chemistry[[id number]] Glucose [Mass/volume] in Serum or Plasma [2345-7] 07/09/2024 12:28 PM 370 mg/dL N Blood chemistry[[id number]] Glucose [Mass/volume] in Serum or Plasma [2345-7] 07/09/2024 11:23 AM 202 mg/dL N Blood chemistry[[id number]] Glucose [Mass/volume] in Serum or Plasma [2345-7] 07/08/2024 04:20 PM 124 mg/dL N Blood chemistry[[id number]] Glucose [Mass/volume] in Serum or Plasma [2345-7] 07/08/2024 01:37 PM 285 mg/dL N Blood chemistry[[id number]] Glucose [Mass/volume] in Serum or Plasma [2345-7] 07/07/2024 01:40 PM 375 mg/dL N Blood chemistry[[id number]] Glucose [Mass/volume] in Serum or Plasma [2345-7] 07/07/2024 01:59 PM 132 mg/dL N Blood chemistry[[id number]] Glucose [Mass/volume] in Serum or Plasma [2345-7] 07/06/2024 12:51 PM 239 mg/dL N Blood chemistry[[id number]] Glucose [Mass/volume] in Serum or Plasma [2345-7] 07/06/2024 01:40 PM 128 mg/dL N Blood chemistry[[id number]] Glucose [Mass/volume] in Serum or Plasma [2345-7] 07/05/2024 12:43 PM 131 mg/dL N Blood chemistry[[id number]] Glucose [Mass/volume] in Serum or Plasma [2345-7] 07/05/2024 05:30 PM 109 mg/dL N Blood chemistry[[id number]] Glucose [Mass/volume] in Serum or Plasma [2345-7] 07/04/2024 12:43 PM 289 mg/dL N Blood chemistry[[id number]] Glucose [Mass/volume] in Serum or Plasma [2345-7] 07/04/2024 01:52 PM 202 mg/dL N Blood chemistry[[id number]] Glucose [Mass/volume] in Serum or Plasma [2345-7] 07/03/2024 01:26 PM 221 mg/dL N Blood chemistry[[id number]] Glucose [Mass/volume] in Serum or Plasma [2345-7] 07/03/2024 12:50 PM 221 mg/dL N Blood chemistry[[id number]] Glucose [Mass/volume] in Serum or Plasma [2345-7] 07/02/2024 01:45 PM 203 mg/dL N Blood chemistry[[id number]] Glucose [Mass/volume] in Serum or Plasma [2345-7] 07/02/2024 03:22 PM 133 mg/dL N Blood chemistry[[id number]] Glucose [Mass/volume] in Serum or Plasma [2345-7] 07/01/2024 02:07 PM 362 mg/dL N Blood chemistry[[id number]] Glucose [Mass/volume] in Serum or Plasma [2345-7] 07/01/2024 01:47 PM 130 mg/dL N Blood chemistry[[id number]] Glucose [Mass/volume] in Serum or Plasma [2345-7] 06/30/2024 02:08 PM 277 mg/dL N Blood chemistry[[id number]] Glucose [Mass/volume] in Serum or Plasma [2345-7] 06/30/2024 02:03 PM 132 mg/dL N Blood chemistry[[id number]] Glucose [Mass/volume] in Serum or Plasma [2345-7] 06/29/2024 02:22 PM 185 mg/dL N Blood chemistry[[id number]] Glucose [Mass/volume] in Serum or Plasma [2345-7] 06/29/2024 02:13 PM 158 mg/dL N Blood chemistry[[id number]] Glucose [Mass/volume] in Serum or Plasma [2345-7] 06/29/2024 01:53 PM 200 mg/dL N Blood chemistry[[id number]] Glucose [Mass/volume] in Serum or Plasma [2345-7] 06/28/2024 12:59 PM 155 mg/dL N Blood chemistry[[id number]] Glucose [Mass/volume] in Serum or Plasma [2345-7] 06/28/2024 12:44 PM 312 mg/dL N Blood chemistry[[id number]] Glucose [Mass/volume] in Serum or Plasma [2345-7] 06/27/2024 12:57 PM 315 mg/dL N Blood chemistry[[id number]] Glucose [Mass/volume] in Serum or Plasma [2345-7] 06/26/2024 02:58 PM 185 mg/dL N Blood chemistry[[id number]] Glucose [Mass/volume] in Serum or Plasma [2345-7] 06/26/2024 12:58 PM 248 mg/dL N Blood chemistry[[id number]] Glucose [Mass/volume] in Serum or Plasma [2345-7] 2024 01:19 PM 195 mg/dL N Blood chemistry[[id number]] Glucose [Mass/volume] in Serum or Plasma [2345-7] 2024 02:13 PM 127 mg/dL N Blood chemistry[[id number]] Glucose [Mass/volume] in Serum or Plasma [2345-7] 06/24/2024 04:54 PM 133 mg/dL N Blood chemistry[[id number]] Glucose [Mass/volume] in Serum or Plasma [2345-7] 06/24/2024 01:26 PM 296 mg/dL N Blood chemistry[[id number]] Glucose [Mass/volume] in Serum or Plasma [2345-7] 06/23/2024 02:01 PM 267 mg/dL N Blood chemistry[[id number]] Glucose [Mass/volume] in Serum or Plasma [2345-7] 06/23/2024 01:18 PM 94 mg/dL N Blood chemistry[[id number]] Glucose [Mass/volume] in Serum or Plasma [2345-7] 06/22/2024 12:36 PM 164 mg/dL N Blood chemistry[[id number]] Glucose [Mass/volume] in Serum or Plasma [2345-7] 06/22/2024 12:59 PM 98 mg/dL N Blood chemistry[[id number]] Glucose [Mass/volume] in Serum or Plasma [2345-7] 06/21/2024 01:48 PM 172 mg/dL N Blood chemistry[[id number]] Glucose [Mass/volume] in Serum or Plasma [2345-7] 06/21/2024 01:21 PM 172 mg/dL N Blood chemistry[[id number]] Glucose [Mass/volume] in Serum or Plasma [2345-7] 06/21/2024 02:07 PM 102 mg/dL N Blood chemistry[[id number]] Glucose [Mass/volume] in Serum or Plasma [2345-7] 06/20/2024 01:28 PM 128 mg/dL N Blood chemistry[[id number]] Glucose [Mass/volume] in Serum or Plasma [2345-7] 06/20/2024 01:08 PM 128 mg/dL N Blood chemistry[[id number]] Glucose [Mass/volume] in Serum or Plasma [2345-7] 06/19/2024 06:15 PM 105 mg/dL N Blood chemistry[[id number]] Glucose [Mass/volume] in Serum or Plasma [2345-7] 06/19/2024 01:44 PM 90 mg/dL N Blood chemistry[[id number]] Glucose [Mass/volume] in Serum or Plasma [2345-7] 06/19/2024 01:37 PM 119 mg/dL N Blood chemistry[[id number]] Glucose [Mass/volume] in Serum or Plasma [2345-7] 06/19/2024 10:25 AM 106 mg/dL N Blood chemistry[[id number]] Glucose [Mass/volume] in Serum or Plasma [2345-7] 06/18/2024 01:41 PM 139 mg/dL N Blood chemistry[[id number]] Glucose [Mass/volume] in Serum or Plasma [2345-7] 06/18/2024 11:46 AM 102 mg/dL N Blood chemistry[[id number]] Glucose [Mass/volume] in Serum or Plasma [2345-7] 06/18/2024 02:24 PM 108 mg/dL N Blood chemistry[[id number]] Glucose [Mass/volume] in Serum or Plasma [2345-7] 06/18/2024 08:27 AM 127 mg/dL N Blood chemistry[[id number]] Glucose [Mass/volume] in Serum or Plasma [2345-7] 06/17/2024 05:23 PM 144 mg/dL N Blood chemistry[[id number]] Glucose [Mass/volume] in Serum or Plasma [2345-7] 06/17/2024 01:34 PM 247 mg/dL N Blood chemistry[[id number]] Glucose [Mass/volume] in Serum or Plasma [2345-7] 06/17/2024 01:09 PM 88 mg/dL N Blood chemistry[[id number]] Glucose [Mass/volume] in Serum or Plasma [2345-7] 06/17/2024 11:25 AM 193 mg/dL N Blood chemistry[[id number]] Glucose [Mass/volume] in Serum or Plasma [2345-7] 06/16/2024 02:26 PM 60 mg/dL N Blood chemistry[[id number]] Glucose [Mass/volume] in Serum or Plasma [2345-7] 06/16/2024 11:01 AM 213 mg/dL N Blood chemistry[[id number]] Glucose [Mass/volume] in Serum or Plasma [2345-7] 06/16/2024 05:59 PM 202 mg/dL N Blood chemistry[[id number]] Glucose [Mass/volume] in Serum or Plasma [2345-7] 06/16/2024 02:28 PM 85 mg/dL N Blood chemistry[[id number]] Glucose [Mass/volume] in Serum or Plasma [2345-7] 06/15/2024 05:10 PM 194 mg/dL N Blood chemistry[[id number]] Glucose [Mass/volume] in Serum or Plasma [2345-7] 06/15/2024 02:37 PM 141 mg/dL N Blood chemistry[[id number]] Glucose [Mass/volume] in Serum or Plasma [2345-7] 06/15/2024 01:51 PM 372 mg/dL N Blood chemistry[[id number]] Glucose [Mass/volume] in Serum or Plasma [2345-7] 06/15/2024 11:31 AM 85 mg/dL N Blood chemistry[[id number]] Glucose [Mass/volume] in Serum or Plasma [2345-7] 06/14/2024 02:26 PM 182 mg/dL N Blood chemistry[[id number]] Glucose [Mass/volume] in Serum or Plasma [2345-7] 06/14/2024 12:50 PM 193 mg/dL N Blood chemistry[[id number]] Glucose [Mass/volume] in Serum or Plasma [2345-7] 06/14/2024 11:06 AM 154 mg/dL N Blood chemistry[[id number]] Glucose [Mass/volume] in Serum or Plasma [2345-7] 06/14/2024 07:12 AM 203 mg/dL N Blood chemistry[[id number]] Glucose [Mass/volume] in Serum or Plasma [2345-7] 06/13/2024 06:10 PM 109 mg/dL N Blood chemistry[[id number]] Glucose [Mass/volume] in Serum or Plasma [2345-7] 06/13/2024 01:09 PM 120 mg/dL N Blood chemistry[[id number]] Glucose [Mass/volume] in Serum or Plasma [2345-7] 06/13/2024 12:40 PM 107 mg/dL N Blood chemistry[[id number]] Glucose [Mass/volume] in Serum or Plasma [2345-7] 06/13/2024 10:52 AM 185 mg/dL N Blood chemistry[[id number]] Glucose [Mass/volume] in Serum or Plasma [2345-7] 06/12/2024 02:20 PM 177 mg/dL N Blood chemistry[[id number]] Glucose [Mass/volume] in Serum or Plasma [2345-7] 06/12/2024 06:15 PM 133 mg/dL N Blood chemistry[[id number]] Glucose [Mass/volume] in Serum or Plasma [2345-7] 06/12/2024 04:05 PM 99 mg/dL N Blood chemistry[[id number]] Glucose [Mass/volume] in Serum or Plasma [2345-7] 06/12/2024 10:39 AM 119 mg/dL N Blood chemistry[[id number]] Glucose [Mass/volume] in Serum or Plasma [2345-7] 06/11/2024 05:58 PM 235 mg/dL N Blood chemistry[[id number]] Glucose [Mass/volume] in Serum or Plasma [2345-7] 06/11/2024 03:37 PM 207 mg/dL N Blood chemistry[[id number]] Glucose [Mass/volume] in Serum or Plasma [2345-7] 06/11/2024 01:43 PM 191 mg/dL N Blood chemistry[[id number]] Glucose [Mass/volume] in Serum or Plasma [2345-7] 06/11/2024 10:57 AM 188 mg/dL N Blood chemistry[[id number]] Glucose [Mass/volume] in Serum or Plasma [2345-7] 06/10/2024 02:30 PM 226 mg/dL N Blood chemistry[[id number]] Glucose [Mass/volume] in Serum or Plasma [2345-7] 06/10/2024 12:35 PM 152 mg/dL N Blood chemistry[[id number]] Glucose [Mass/volume] in Serum or Plasma [2345-7] 06/10/2024 06:37 PM 242 mg/dL N Glucose [Mass/volume] in Serum or Plasma [2345-7] 06/10/2024 06:37 PM 138 mg/dL N Blood chemistry[[id number]] Glucose [Mass/volume] in Serum or Plasma [2345-7] 06/09/2024 02:01 PM 212 mg/dL N Blood chemistry[[id number]] Glucose [Mass/volume] in Serum or Plasma [2345-7] 06/09/2024 06:51 PM 123 mg/dL N Blood chemistry[] Glucose [Mass/volume] in Serum or Plasma [2345-7] 06/09/2024 01:08 PM 132 mg/dL N Blood chemistry[] Glucose [Mass/volume] in Serum or Plasma [2345-7] 06/09/2024 11:42 AM 225 mg/dL N Blood chemistry[] Glucose [Mass/volume] in Serum or Plasma [2345-7] 06/08/2024 12:45 PM 221 mg/dL N Blood chemistry[[id number]] Glucose [Mass/volume] in Serum or Plasma [2345-7] 06/08/2024 06:12 PM 141 mg/dL N Blood chemistry[[id number]] Glucose [Mass/volume] in Serum or Plasma [2345-7] 06/08/2024 01:49 PM 158 mg/dL N Blood chemistry[] Glucose [Mass/volume] in Serum or Plasma [2345-7] 06/08/2024 11:18 AM 294 mg/dL N Blood chemistry[[id number]] Glucose [Mass/volume] in Serum or Plasma [2345-7] 06/07/2024 12:46 PM 171 mg/dL N Blood chemistry[[id number]] Glucose [Mass/volume] in Serum or Plasma [2345-7] 06/07/2024 01:02 PM 113 mg/dL N Blood chemistry[[id number]] Glucose [Mass/volume] in Serum or Plasma [2345-7] 06/07/2024 11:17 AM 192 mg/dL N Blood chemistry[[id number]] Glucose [Mass/volume] in Serum or Plasma [2345-7] 06/07/2024 11:16 AM 116 mg/dL N Blood chemistry[[id number]] Glucose [Mass/volume] in Serum or Plasma [2345-7] 06/06/2024 01:08 PM 82 mg/dL N Blood chemistry[[id number]] Glucose [Mass/volume] in Serum or Plasma [2345-7] 06/06/2024 06:38 PM 150 mg/dL N Blood chemistry[[id number]] Glucose [Mass/volume] in Serum or Plasma [2345-7] 06/06/2024 01:39 PM 131 mg/dL N Blood chemistry[[id number]] Glucose [Mass/volume] in Serum or Plasma [2345-7] 06/06/2024 10:34 AM 162 mg/dL N Blood chemistry[[id number]] Glucose [Mass/volume] in Serum or Plasma [2345-7] 06/05/2024 03:17 PM 164 mg/dL N Blood chemistry[[id number]] Glucose [Mass/volume] in Serum or Plasma [2345-7] 06/05/2024 02:11 PM 173 mg/dL N Blood chemistry[[id number]] Glucose [Mass/volume] in Serum or Plasma [2345-7] 06/05/2024 10:53 AM 254 mg/dL N Blood chemistry[[id number]] Glucose [Mass/volume] in Serum or Plasma [2345-7] 06/04/2024 02:15 PM 140 mg/dL N Blood chemistry[[id number]] Glucose [Mass/volume] in Serum or Plasma [2345-7] 06/04/2024 11:25 AM 136 mg/dL N Blood chemistry[[id number]] Glucose [Mass/volume] in Serum or Plasma [2345-7] 06/04/2024 02:32 PM 130 mg/dL N Blood chemistry[[id number]] Glucose [Mass/volume] in Serum or Plasma [2345-7] 06/04/2024 07:40 AM 136 mg/dL N Blood chemistry[[id number]] Glucose [Mass/volume] in Serum or Plasma [2345-7] 06/03/2024 02:12 PM 249 mg/dL N Blood chemistry[[id number]] Glucose [Mass/volume] in Serum or Plasma [2345-7] 06/03/2024 10:36 AM 285 mg/dL N Blood chemistry[[id number]] Glucose [Mass/volume] in Serum or Plasma [2345-7] 06/03/2024 02:58 PM 210 mg/dL N Blood chemistry[[id number]] Glucose [Mass/volume] in Serum or Plasma [2345-7] 06/02/2024 03:46 PM 325 mg/dL N Blood chemistry[[id number]] Glucose [Mass/volume] in Serum or Plasma [2345-7] 06/02/2024 12:32 PM 211 mg/dL N Blood chemistry[[id number]] Glucose [Mass/volume] in Serum or Plasma [2345-7] 06/02/2024 03:39 PM 242 mg/dL N Blood chemistry[[id number]] Glucose [Mass/volume] in Serum or Plasma [2345-7] 06/02/2024 07:07 AM 165 mg/dL N Blood chemistry[[id number]] Glucose [Mass/volume] in Serum or Plasma [2345-7] 06/01/2024 05:28 PM 312 mg/dL N Blood chemistry[[id number]] Glucose [Mass/volume] in Serum or Plasma [2345-7] 06/01/2024 01:32 PM 143 mg/dL N Blood chemistry[[id number]] Glucose [Mass/volume] in Serum or Plasma [2345-7] 06/01/2024 11:06 AM 111 mg/dL N Blood chemistry[[id number]] Glucose [Mass/volume] in Serum or Plasma [2345-7] 06/01/2024 11:05 AM 109 mg/dL N Blood chemistry[[id number]] Glucose [Mass/volume] in Serum or Plasma [2345-7] 05/31/2024 02:24 PM 253 mg/dL N Blood chemistry[[id number]] Glucose [Mass/volume] in Serum or Plasma [2345-7] 05/31/2024 05:02 PM 114 mg/dL N Blood chemistry[[id number]] Glucose [Mass/volume] in Serum or Plasma [2345-7] 05/31/2024 12:35 PM 103 mg/dL N Blood chemistry[[id number]] Glucose [Mass/volume] in Serum or Plasma [2345-7] 05/31/2024 08:37 AM 101 mg/dL N Blood chemistry[[id number]] Glucose [Mass/volume] in Serum or Plasma [2345-7] 05/30/2024 06:39 PM 224 mg/dL N Blood chemistry[[id number]] Glucose [Mass/volume] in Serum or Plasma [2345-7] 05/30/2024 01:05 PM 145 mg/dL N Blood chemistry[[id number]] Glucose [Mass/volume] in Serum or Plasma [2345-7] 05/30/2024 12:35 PM 97 mg/dL N Blood chemistry[[id number]] Glucose [Mass/volume] in Serum or Plasma [2345-7] 05/29/2024 01:28 PM 159 mg/dL N Blood chemistry[[id number]] Glucose [Mass/volume] in Serum or Plasma [2345-7] 05/29/2024 05:43 PM 181 mg/dL N Blood chemistry[[id number]] Glucose [Mass/volume] in Serum or Plasma [2345-7] 05/29/2024 01:11 PM 113 mg/dL N Blood chemistry[[id number]] Glucose [Mass/volume] in Serum or Plasma [2345-7] 05/29/2024 12:37 PM 122 mg/dL N Blood chemistry[[id number]] Glucose [Mass/volume] in Serum or Plasma [2345-7] 05/28/2024 05:31 PM 124 mg/dL N Blood chemistry[[id number]] Glucose [Mass/volume] in Serum or Plasma [2345-7] 05/28/2024 05:05 PM 76 mg/dL N Blood chemistry[[id number]] Glucose [Mass/volume] in Serum or Plasma [2345-7] 05/28/2024 12:40 PM 250 mg/dL N Blood chemistry[[id number]] Glucose [Mass/volume] in Serum or Plasma [2345-7] 05/27/2024 02:24 PM 117 mg/dL N Blood chemistry[[id number]] Glucose [Mass/volume] in Serum or Plasma [2345-7] 05/27/2024 10:29 AM 157 mg/dL N Blood chemistry[[id number]] Glucose [Mass/volume] in Serum or Plasma [2345-7] 05/27/2024 05:04 PM 206 mg/dL N Blood chemistry[[id number]] Glucose [Mass/volume] in Serum or Plasma [2345-7] 05/27/2024 01:59 PM 120 mg/dL N Blood chemistry[[id number]] Glucose [Mass/volume] in Serum or Plasma [2345-7] 05/26/2024 02:58 PM 159 mg/dL N Blood chemistry[[id number]] Glucose [Mass/volume] in Serum or Plasma [2345-7] 05/26/2024 05:06 PM 145 mg/dL N Blood chemistry[[id number]] Glucose [Mass/volume] in Serum or Plasma [2345-7] 05/26/2024 03:54 PM 99 mg/dL N Blood chemistry[[id number]] Glucose [Mass/volume] in Serum or Plasma [2345-7] 05/26/2024 10:57 AM 101 mg/dL N Blood chemistry[[id number]] Glucose [Mass/volume] in Serum or Plasma [2345-7] 05/25/2024 01:09 PM 156 mg/dL N Blood chemistry[[id number]] Glucose [Mass/volume] in Serum or Plasma [2345-7] 05/25/2024 03:49 PM 96 mg/dL N Blood chemistry[[id number]] Glucose [Mass/volume] in Serum or Plasma [2345-7] 05/25/2024 11:14 AM 127 mg/dL N Blood chemistry[[id number]] Glucose [Mass/volume] in Serum or Plasma [2345-7] 05/25/2024 07:40 AM 226 mg/dL N Blood chemistry[[id number]] Glucose [Mass/volume] in Serum or Plasma [2345-7] 05/24/2024 12:47 PM 169 mg/dL N Blood chemistry[[id number]] Glucose [Mass/volume] in Serum or Plasma [2345-7] 05/24/2024 01:37 PM 112 mg/dL N Blood chemistry[[id number]] Glucose [Mass/volume] in Serum or Plasma [2345-7] 05/24/2024 09:47 AM 226 mg/dL N Blood chemistry[[id number]] Glucose [Mass/volume] in Serum or Plasma [2345-7] 05/24/2024 09:33 AM 131 mg/dL N Blood chemistry[[id number]] Glucose [Mass/volume] in Serum or Plasma [2345-7] 05/23/2024 12:53 PM 149 mg/dL N Blood chemistry[[id number]] Glucose [Mass/volume] in Serum or Plasma [2345-7] 05/23/2024 05:58 PM 158 mg/dL N Blood chemistry[[id number]] Glucose [Mass/volume] in Serum or Plasma [2345-7] 05/23/2024 01:14 PM 123 mg/dL N Blood chemistry[[id number]] Glucose [Mass/volume] in Serum or Plasma [2345-7] 05/23/2024 10:28 AM 140 mg/dL N Blood chemistry[[id number]] Glucose [Mass/volume] in Serum or Plasma [2345-7] 05/22/2024 05:34 PM 212 mg/dL N Blood chemistry[[id number]] Glucose [Mass/volume] in Serum or Plasma [2345-7] 05/22/2024 01:43 PM 183 mg/dL N Blood chemistry[[id number]] Glucose [Mass/volume] in Serum or Plasma [2345-7] 05/22/2024 01:34 PM 171 mg/dL N Blood chemistry[[id number]] Glucose [Mass/volume] in Serum or Plasma [2345-7] 05/21/2024 01:06 PM 178 mg/dL N Blood chemistry[[id number]] Glucose [Mass/volume] in Serum or Plasma [2345-7] 05/21/2024 11:27 AM 134 mg/dL N Blood chemistry[[id number]] Glucose [Mass/volume] in Serum or Plasma [2345-7] 05/21/2024 09:56 AM 154 mg/dL N Blood chemistry[[id number]] Glucose [Mass/volume] in Serum or Plasma [2345-7] 05/21/2024 02:14 PM 137 mg/dL N Blood chemistry[[id number]] Glucose [Mass/volume] in Serum or Plasma [2345-7] 05/20/2024 05:18 PM 99 mg/dL N Glucose [Mass/volume] in Serum or Plasma [2345-7] 05/20/2024 05:18 PM 78 mg/dL N Blood chemistry[[id number]] Glucose [Mass/volume] in Serum or Plasma [2345-7] 05/20/2024 02:25 PM 188 mg/dL N Blood chemistry[[id number]] Glucose [Mass/volume] in Serum or Plasma [2345-7] 05/20/2024 11:33 AM 98 mg/dL N Blood chemistry[[id number]] Glucose [Mass/volume] in Serum or Plasma [2345-7] 05/19/2024 05:06 PM 115 mg/dL N Blood chemistry[[id number]] Glucose [Mass/volume] in Serum or Plasma [2345-7] 05/19/2024 02:11 PM 106 mg/dL N Blood chemistry[[id number]] Glucose [Mass/volume] in Serum or Plasma [2345-7] 05/19/2024 12:49 PM 84 mg/dL N Blood chemistry[[id number]] Glucose [Mass/volume] in Serum or Plasma [2345-7] 05/19/2024 10:46 AM 123 mg/dL N Blood chemistry[[id number]] Glucose [Mass/volume] in Serum or Plasma [2345-7] 05/18/2024 02:17 PM 129 mg/dL N Blood chemistry[[id number]] Glucose [Mass/volume] in Serum or Plasma [2345-7] 05/18/2024 03:09 PM 148 mg/dL N Blood chemistry[[id number]] Glucose [Mass/volume] in Serum or Plasma [2345-7] 05/18/2024 11:10 AM 135 mg/dL N Blood chemistry[[id number]] Glucose [Mass/volume] in Serum or Plasma [2345-7] 05/18/2024 07:13 AM 126 mg/dL N Blood chemistry[[id number]] Glucose [Mass/volume] in Serum or Plasma [2345-7] 05/17/2024 12:50 PM 253 mg/dL N Blood chemistry[[id number]] Glucose [Mass/volume] in Serum or Plasma [2345-7] 05/17/2024 05:28 PM 142 mg/dL N Blood chemistry[[id number]] Glucose [Mass/volume] in Serum or Plasma [2345-7] 05/17/2024 11:35 AM 224 mg/dL N Blood chemistry[[id number]] Glucose [Mass/volume] in Serum or Plasma [2345-7] 05/16/2024 05:41 PM 163 mg/dL N Blood chemistry[[id number]] Glucose [Mass/volume] in Serum or Plasma [2345-7] 05/16/2024 01:19 PM 144 mg/dL N Blood chemistry[[id number]] Glucose [Mass/volume] in Serum or Plasma [2345-7] 05/16/2024 12:36 PM 104 mg/dL N Blood chemistry[[id number]] Glucose [Mass/volume] in Serum or Plasma [2345-7] 05/16/2024 09:35 AM 134 mg/dL N Blood chemistry[[id number]] Glucose [Mass/volume] in Serum or Plasma [2345-7] 05/15/2024 12:56 PM 174 mg/dL N Blood chemistry[[id number]] Glucose [Mass/volume] in Serum or Plasma [2345-7] 05/15/2024 05:31 PM 117 mg/dL N Blood chemistry[[id number]] Glucose [Mass/volume] in Serum or Plasma [2345-7] 05/15/2024 01:19 PM 231 mg/dL N Blood chemistry[[id number]] Glucose [Mass/volume] in Serum or Plasma [2345-7] 05/14/2024 02:18 PM 205 mg/dL N Blood chemistry[[id number]] Glucose [Mass/volume] in Serum or Plasma [2345-7] 05/14/2024 01:35 PM 176 mg/dL N Blood chemistry[[id number]] Glucose [Mass/volume] in Serum or Plasma [2345-7] 05/14/2024 10:55 AM 256 mg/dL N Blood chemistry[[id number]] Glucose [Mass/volume] in Serum or Plasma [2345-7] 05/14/2024 07:21 AM 195 mg/dL N Blood chemistry[[id number]] Glucose [Mass/volume] in Serum or Plasma [2345-7] 05/13/2024 01:57 PM 206 mg/dL N Blood chemistry[[id number]] Glucose [Mass/volume] in Serum or Plasma [2345-7] 05/13/2024 10:30 AM 169 mg/dL N Blood chemistry[[id number]] Glucose [Mass/volume] in Serum or Plasma [2345-7] 05/13/2024 05:23 PM 206 mg/dL N Blood chemistry[[id number]] Glucose [Mass/volume] in Serum or Plasma [2345-7] 05/13/2024 02:01 PM 151 mg/dL N Blood chemistry[[id number]] Glucose [Mass/volume] in Serum or Plasma [2345-7] 05/12/2024 01:22 PM 141 mg/dL N Blood chemistry[[id number]] Glucose [Mass/volume] in Serum or Plasma [2345-7] 05/12/2024 06:01 PM 193 mg/dL N Blood chemistry[[id number]] Glucose [Mass/volume] in Serum or Plasma [2345-7] 05/12/2024 02:40 PM 138 mg/dL N Blood chemistry[[id number]] Glucose [Mass/volume] in Serum or Plasma [2345-7] 05/12/2024 10:26 AM 163 mg/dL N Blood chemistry[[id number]] Glucose [Mass/volume] in Serum or Plasma [2345-7] 05/11/2024 05:46 PM 101 mg/dL N Blood chemistry[[id number]] Glucose [Mass/volume] in Serum or Plasma [2345-7] 05/11/2024 01:59 PM 120 mg/dL N Blood chemistry[[id number]] Glucose [Mass/volume] in Serum or Plasma [2345-7] 05/11/2024 12:41 PM 115 mg/dL N Blood chemistry[[id number]] Glucose [Mass/volume] in Serum or Plasma [2345-7] 05/11/2024 09:23 AM 120 mg/dL N Blood chemistry[[id number]] Glucose [Mass/volume] in Serum or Plasma [2345-7] 05/10/2024 01:34 PM 141 mg/dL N Blood chemistry[[id number]] Glucose [Mass/volume] in Serum or Plasma [2345-7] 05/10/2024 01:04 PM 180 mg/dL N Blood chemistry[[id number]] Glucose [Mass/volume] in Serum or Plasma [2345-7] 05/10/2024 10:42 AM 233 mg/dL N Blood chemistry[[id number]] Glucose [Mass/volume] in Serum or Plasma [2345-7] 05/10/2024 08:38 AM 232 mg/dL N Blood chemistry[[id number]] Glucose [Mass/volume] in Serum or Plasma [2345-7] 05/09/2024 06:11 PM 181 mg/dL N Blood chemistry[[id number]] Glucose [Mass/volume] in Serum or Plasma [2345-7] 05/09/2024 01:52 PM 171 mg/dL N Blood chemistry[[id number]] Glucose [Mass/volume] in Serum or Plasma [2345-7] 05/09/2024 12:41 PM 57 mg/dL N Blood chemistry[[id number]] Glucose [Mass/volume] in Serum or Plasma [2345-7] 05/09/2024 10:32 AM 164 mg/dL N Blood chemistry[[id number]] Glucose [Mass/volume] in Serum or Plasma [2345-7] 05/08/2024 05:43 PM 122 mg/dL N Blood chemistry[[id number]] Glucose [Mass/volume] in Serum or Plasma [2345-7] 05/08/2024 01:42 PM 144 mg/dL N Blood chemistry[[id number]] Glucose [Mass/volume] in Serum or Plasma [2345-7] 05/08/2024 12:42 PM 127 mg/dL N Blood chemistry[[id number]] Glucose [Mass/volume] in Serum or Plasma [2345-7] 05/08/2024 10:39 AM 170 mg/dL N Blood chemistry[[id number]] Glucose [Mass/volume] in Serum or Plasma [2345-7] 05/07/2024 06:49 PM 212 mg/dL N Blood chemistry[[id number]] Glucose [Mass/volume] in Serum or Plasma [2345-7] 05/07/2024 03:09 PM 147 mg/dL N Blood chemistry[[id number]] Glucose [Mass/volume] in Serum or Plasma [2345-7] 05/07/2024 02:07 PM 181 mg/dL N Blood chemistry[[id number]] Glucose [Mass/volume] in Serum or Plasma [2345-7] 05/07/2024 10:56 AM 169 mg/dL N Blood chemistry[[id number]] Glucose [Mass/volume] in Serum or Plasma [2345-7] 05/06/2024 02:24 PM 188 mg/dL N Blood chemistry[[id number]] Glucose [Mass/volume] in Serum or Plasma [2345-7] 05/06/2024 10:22 AM 167 mg/dL N Blood chemistry[[id number]] Glucose [Mass/volume] in Serum or Plasma [2345-7] 05/06/2024 05:00 PM 96 mg/dL N Blood chemistry[[id number]] Glucose [Mass/volume] in Serum or Plasma [2345-7] 05/06/2024 01:37 PM 99 mg/dL N Blood chemistry[[id number]] Glucose [Mass/volume] in Serum or Plasma [2345-7] 05/05/2024 01:44 PM 152 mg/dL N Blood chemistry[[id number]] Glucose [Mass/volume] in Serum or Plasma [2345-7] 05/05/2024 05:23 PM 190 mg/dL N Blood chemistry[[id number]] Glucose [Mass/volume] in Serum or Plasma [2345-7] 05/05/2024 03:10 PM 104 mg/dL N Blood chemistry[[id number]] Glucose [Mass/volume] in Serum or Plasma [2345-7] 05/05/2024 10:51 AM 104 mg/dL N Blood chemistry[[id number]] Glucose [Mass/volume] in Serum or Plasma [2345-7] 05/04/2024 02:55 PM 162 mg/dL N Blood chemistry[[id number]] Glucose [Mass/volume] in Serum or Plasma [2345-7] 05/04/2024 05:21 PM 226 mg/dL N Blood chemistry[[id number]] Glucose [Mass/volume] in Serum or Plasma [2345-7] 05/04/2024 01:54 PM 88 mg/dL N Blood chemistry[[id number]] Glucose [Mass/volume] in Serum or Plasma [2345-7] 05/04/2024 10:34 AM 101 mg/dL N Blood chemistry[[id number]] Glucose [Mass/volume] in Serum or Plasma [2345-7] 05/03/2024 12:43 PM 293 mg/dL N Blood chemistry[[id number]] Glucose [Mass/volume] in Serum or Plasma [2345-7] 05/03/2024 06:41 PM 155 mg/dL N Blood chemistry[[id number]] Glucose [Mass/volume] in Serum or Plasma [2345-7] 05/03/2024 01:37 PM 165 mg/dL N Blood chemistry[[id number]] Glucose [Mass/volume] in Serum or Plasma [2345-7] 05/02/2024 01:01 PM 154 mg/dL N Blood chemistry[[id number]] Glucose [Mass/volume] in Serum or Plasma [2345-7] 05/02/2024 05:44 PM 195 mg/dL N Blood chemistry[[id number]] Glucose [Mass/volume] in Serum or Plasma [2345-7] 05/02/2024 01:14 PM 205 mg/dL N Blood chemistry[[id number]] Glucose [Mass/volume] in Serum or Plasma [2345-7] 05/02/2024 10:53 AM 217 mg/dL N Blood chemistry[[id number]] Glucose [Mass/volume] in Serum or Plasma [2345-7] 05/01/2024 01:05 PM 266 mg/dL N Blood chemistry[[id number]] Glucose [Mass/volume] in Serum or Plasma [2345-7] 05/01/2024 05:59 PM 148 mg/dL N Blood chemistry[[id number]] Glucose [Mass/volume] in Serum or Plasma [2345-7] 05/01/2024 01:40 PM 192 mg/dL N Blood chemistry[[id number]] Glucose [Mass/volume] in Serum or Plasma [2345-7] 05/01/2024 11:12 AM 270 mg/dL N Blood chemistry[[id number]] Glucose [Mass/volume] in Serum or Plasma [2345-7] 04/30/2024 02:03 PM 244 mg/dL N Blood chemistry[[id number]] Glucose [Mass/volume] in Serum or Plasma [2345-7] 04/30/2024 12:50 PM 159 mg/dL N Blood chemistry[[id number]] Glucose [Mass/volume] in Serum or Plasma [2345-7] 04/30/2024 12:30 PM 133 mg/dL N Blood chemistry[[id number]] Glucose [Mass/volume] in Serum or Plasma [2345-7] 04/30/2024 08:58 AM 109 mg/dL N Blood chemistry[[id number]] Glucose [Mass/volume] in Serum or Plasma [2345-7] 04/29/2024 01:24 PM 308 mg/dL N Blood chemistry[[id number]] Glucose [Mass/volume] in Serum or Plasma [2345-7] 04/29/2024 11:48 AM 256 mg/dL N Blood chemistry[[id number]] Glucose [Mass/volume] in Serum or Plasma [2345-7] 04/29/2024 11:47 AM 173 mg/dL N Blood chemistry[[id number]] Glucose [Mass/volume] in Serum or Plasma [2345-7] 04/29/2024 03:45 PM 243 mg/dL N Blood chemistry[[id number]] Glucose [Mass/volume] in Serum or Plasma [2345-7] 04/28/2024 01:08 PM 316 mg/dL N Blood chemistry[[id number]] Glucose [Mass/volume] in Serum or Plasma [2345-7] 04/28/2024 03:56 PM 181 mg/dL N Blood chemistry[[id number]] Glucose [Mass/volume] in Serum or Plasma [2345-7] 04/28/2024 09:37 AM 303 mg/dL N Blood chemistry[[id number]] Glucose [Mass/volume] in Serum or Plasma [2345-7] 04/27/2024 05:02 PM 283 mg/dL N Blood chemistry[[id number]] Glucose [Mass/volume] in Serum or Plasma [2345-7] 04/27/2024 01:32 PM 248 mg/dL N Blood chemistry[[id number]] Glucose [Mass/volume] in Serum or Plasma [2345-7] 04/27/2024 12:34 PM 188 mg/dL N Blood chemistry[[id number]] Glucose [Mass/volume] in Serum or Plasma [2345-7] 04/26/2024 01:21 PM 277 mg/dL N Blood chemistry[[id number]] Glucose [Mass/volume] in Serum or Plasma [2345-7] 04/26/2024 10:07 AM 308 mg/dL N Blood chemistry[[id number]] Glucose [Mass/volume] in Serum or Plasma [2345-7] 04/26/2024 05:06 PM 210 mg/dL N Blood chemistry[[id number]] Glucose [Mass/volume] in Serum or Plasma [2345-7] 04/26/2024 01:35 PM 196 mg/dL N Blood chemistry[[id number]] Glucose [Mass/volume] in Serum or Plasma [2345-7] 04/25/2024 12:34 PM 396 mg/dL N Blood chemistry[[id number]] Glucose [Mass/volume] in Serum or Plasma [2345-7] 04/25/2024 02:53 PM 230 mg/dL N Blood chemistry[[id number]] Glucose [Mass/volume] in Serum or Plasma [2345-7] 04/25/2024 11:09 AM 323 mg/dL N Blood chemistry[[id number]] Glucose [Mass/volume] in Serum or Plasma [2345-7] 04/25/2024 07:41 AM 136 mg/dL N Blood chemistry[[id number]] Glucose [Mass/volume] in Serum or Plasma [2345-7] 04/24/2024 12:53 PM 126 mg/dL N Blood chemistry[[id number]] Glucose [Mass/volume] in Serum or Plasma [2345-7] 04/24/2024 05:44 PM 130 mg/dL N Blood chemistry[[id number]] Glucose [Mass/volume] in Serum or Plasma [2345-7] 04/24/2024 01:41 PM 103 mg/dL N Blood chemistry[[id number]] Glucose [Mass/volume] in Serum or Plasma [2345-7] 04/23/2024 05:37 PM 183 mg/dL N Blood chemistry[[id number]] Glucose [Mass/volume] in Serum or Plasma [2345-7] 04/23/2024 02:51 PM 117 mg/dL N Blood chemistry[[id number]] Glucose [Mass/volume] in Serum or Plasma [2345-7] 04/23/2024 02:37 PM 106 mg/dL N Blood chemistry[[id number]] Glucose [Mass/volume] in Serum or Plasma [2345-7] 04/23/2024 10:34 AM 132 mg/dL N Blood chemistry[[id number]] Glucose [Mass/volume] in Serum or Plasma [2345-7] 04/22/2024 01:29 PM 169 mg/dL N Blood chemistry[[id number]] Glucose [Mass/volume] in Serum or Plasma [2345-7] 04/22/2024 09:50 AM 207 mg/dL N Blood chemistry[[id number]] Glucose [Mass/volume] in Serum or Plasma [2345-7] 04/22/2024 05:39 PM 128 mg/dL N Blood chemistry[[id number]] Glucose [Mass/volume] in Serum or Plasma [2345-7] 04/22/2024 01:43 PM 119 mg/dL N Blood chemistry[[id number]] Glucose [Mass/volume] in Serum or Plasma [2345-7] 04/21/2024 06:27 PM 198 mg/dL N Blood chemistry[[id number]] Glucose [Mass/volume] in Serum or Plasma [2345-7] 04/21/2024 04:11 PM 120 mg/dL N Blood chemistry[[id number]] Glucose [Mass/volume] in Serum or Plasma [2345-7] 04/21/2024 03:22 PM 185 mg/dL N Blood chemistry[[id number]] Glucose [Mass/volume] in Serum or Plasma [2345-7] 04/21/2024 12:35 PM 95 mg/dL N Blood chemistry[[id number]] Glucose [Mass/volume] in Serum or Plasma [2345-7] 04/20/2024 05:57 PM 216 mg/dL N Blood chemistry[[id number]] Glucose [Mass/volume] in Serum or Plasma [2345-7] 04/20/2024 12:42 PM 220 mg/dL N Blood chemistry[[id number]] Glucose [Mass/volume] in Serum or Plasma [2345-7] 04/20/2024 11:25 AM 160 mg/dL N Blood chemistry[[id number]] Glucose [Mass/volume] in Serum or Plasma [2345-7] 04/20/2024 02:22 PM 127 mg/dL N Blood chemistry[[id number]] Glucose [Mass/volume] in Serum or Plasma [2345-7] 04/19/2024 05:27 PM 97 mg/dL N Blood chemistry[[id number]] Glucose [Mass/volume] in Serum or Plasma [2345-7] 04/19/2024 01:15 PM 143 mg/dL N Blood chemistry[[id number]] Glucose [Mass/volume] in Serum or Plasma [2345-7] 04/19/2024 10:30 AM 113 mg/dL N Blood chemistry[[id number]] Glucose [Mass/volume] in Serum or Plasma [2345-7] 04/19/2024 01:48 PM 109 mg/dL N Blood chemistry[[id number]] Glucose [Mass/volume] in Serum or Plasma [2345-7] 04/18/2024 05:29 PM 92 mg/dL N Blood chemistry[[id number]] Glucose [Mass/volume] in Serum or Plasma [2345-7] 04/18/2024 12:41 PM 130 mg/dL N Blood chemistry[[id number]] Glucose [Mass/volume] in Serum or Plasma [2345-7] 04/18/2024 10:46 AM 85 mg/dL N Blood chemistry[[id number]] Glucose [Mass/volume] in Serum or Plasma [2345-7] 04/18/2024 01:45 PM 82 mg/dL N Blood chemistry[[id number]] Glucose [Mass/volume] in Serum or Plasma [2345-7] 04/17/2024 06:14 PM 91 mg/dL N Blood chemistry[[id number]] Glucose [Mass/volume] in Serum or Plasma [2345-7] 04/17/2024 03:29 PM 158 mg/dL N Blood chemistry[[id number]] Glucose [Mass/volume] in Serum or Plasma [2345-7] 04/17/2024 02:30 PM 111 mg/dL N Blood chemistry[[id number]] Glucose [Mass/volume] in Serum or Plasma [2345-7] 04/17/2024 11:48 AM 141 mg/dL N Blood chemistry[[id number]] Glucose [Mass/volume] in Serum or Plasma [2345-7] 04/16/2024 03:09 PM 185 mg/dL N Blood chemistry[[id number]] Glucose [Mass/volume] in Serum or Plasma [2345-7] 04/16/2024 12:05 PM 114 mg/dL N Blood chemistry[[id number]] Glucose [Mass/volume] in Serum or Plasma [2345-7] 04/16/2024 08:18 AM 106 mg/dL N Glucose [Mass/volume] in Serum or Plasma [2345-7] 04/16/2024 08:18 AM 149 mg/dL N Blood chemistry[[id number]] Glucose [Mass/volume] in Serum or Plasma [2345-7] 04/15/2024 05:01 PM 188 mg/dL N Blood chemistry[[id number]] Glucose [Mass/volume] in Serum or Plasma [2345-7] 04/15/2024 12:41 PM 142 mg/dL N Blood chemistry[[id number]] Glucose [Mass/volume] in Serum or Plasma [2345-7] 04/15/2024 08:24 AM 141 mg/dL N Glucose [Mass/volume] in Serum or Plasma [2345-7] 04/15/2024 08:24 AM 97 mg/dL N Blood chemistry[[id number]] Glucose [Mass/volume] in Serum or Plasma [2345-7] 04/14/2024 05:11 PM 200 mg/dL N Blood chemistry[[id number]] Glucose [Mass/volume] in Serum or Plasma [2345-7] 04/14/2024 06:57 PM 131 mg/dL N Blood chemistry[[id number]] Glucose [Mass/volume] in Serum or Plasma [2345-7] 04/14/2024 04:46 PM 93 mg/dL N Blood chemistry[[id number]] Glucose [Mass/volume] in Serum or Plasma [2345-7] 04/14/2024 11:37 AM 134 mg/dL N Blood chemistry[[id number]] Glucose [Mass/volume] in Serum or Plasma [2345-7] 04/13/2024 02:13 PM 101 mg/dL N Blood chemistry[[id number]] Glucose [Mass/volume] in Serum or Plasma [2345-7] 04/13/2024 12:32 PM 104 mg/dL N Blood chemistry[[id number]] Glucose [Mass/volume] in Serum or Plasma [2345-7] 04/13/2024 11:14 AM 177 mg/dL N Blood chemistry[[id number]] Glucose [Mass/volume] in Serum or Plasma [2345-7] 04/13/2024 07:16 AM 164 mg/dL N Blood chemistry[[id number]] Glucose [Mass/volume] in Serum or Plasma [2345-7] 04/12/2024 12:27 PM 207 mg/dL N Blood chemistry[[id number]] Glucose [Mass/volume] in Serum or Plasma [2345-7] 04/12/2024 10:21 AM 80 mg/dL N Blood chemistry[[id number]] Glucose [Mass/volume] in Serum or Plasma [2345-7] 04/12/2024 07:02 AM 80 mg/dL N Glucose [Mass/volume] in Serum or Plasma [2345-7] 04/12/2024 07:02 AM 145 mg/dL N Blood chemistry[[id number]] Glucose [Mass/volume] in Serum or Plasma [2345-7] 04/11/2024 06:10 PM 149 mg/dL N Blood chemistry[[id number]] Glucose [Mass/volume] in Serum or Plasma [2345-7] 04/11/2024 01:39 PM 142 mg/dL N Blood chemistry[[id number]] Glucose [Mass/volume] in Serum or Plasma [2345-7] 04/11/2024 12:31 PM 74 mg/dL N Blood chemistry[[id number]] Glucose [Mass/volume] in Serum or Plasma [2345-7] 04/11/2024 10:45 AM 109 mg/dL N Blood chemistry[[id number]] Glucose [Mass/volume] in Serum or Plasma [2345-7] 04/10/2024 05:04 PM 169 mg/dL N Blood chemistry[[id number]] Glucose [Mass/volume] in Serum or Plasma [2345-7] 04/10/2024 03:14 PM 146 mg/dL N Blood chemistry[[id number]] Glucose [Mass/volume] in Serum or Plasma [2345-7] 04/10/2024 12:52 PM 251 mg/dL N Blood chemistry[[id number]] Glucose [Mass/volume] in Serum or Plasma [2345-7] 04/10/2024 10:43 AM 184 mg/dL N Blood chemistry[[id number]] Glucose [Mass/volume] in Serum or Plasma [2345-7] 04/09/2024 05:04 PM 196 mg/dL N Blood chemistry[[id number]] Glucose [Mass/volume] in Serum or Plasma [2345-7] 04/09/2024 04:33 PM 285 mg/dL N Blood chemistry[[id number]] Glucose [Mass/volume] in Serum or Plasma [2345-7] 04/09/2024 02:19 PM 176 mg/dL N Blood chemistry[[id number]] Glucose [Mass/volume] in Serum or Plasma [2345-7] 04/09/2024 11:19 AM 80 mg/dL N Blood chemistry[[id number]] Glucose [Mass/volume] in Serum or Plasma [2345-7] 04/08/2024 05:33 PM 269 mg/dL N Blood chemistry[[id number]] Glucose [Mass/volume] in Serum or Plasma [2345-7] 04/08/2024 04:03 PM 95 mg/dL N Blood chemistry[[id number]] Glucose [Mass/volume] in Serum or Plasma [2345-7] 04/08/2024 02:37 PM 187 mg/dL N Blood chemistry[[id number]] Glucose [Mass/volume] in Serum or Plasma [2345-7] 04/08/2024 10:56 AM 187 mg/dL N Blood chemistry[[id number]] Glucose [Mass/volume] in Serum or Plasma [2345-7] 04/07/2024 05:15 PM 109 mg/dL N Blood chemistry[[id number]] Glucose [Mass/volume] in Serum or Plasma [2345-7] 04/07/2024 02:45 PM 200 mg/dL N Blood chemistry[[id number]] Glucose [Mass/volume] in Serum or Plasma [2345-7] 04/07/2024 02:27 PM 144 mg/dL N Blood chemistry[[id number]] Glucose [Mass/volume] in Serum or Plasma [2345-7] 04/07/2024 11:36 AM 118 mg/dL N Blood chemistry[[id number]] Glucose [Mass/volume] in Serum or Plasma [2345-7] 04/06/2024 06:23 PM 188 mg/dL N Blood chemistry[[id number]] Glucose [Mass/volume] in Serum or Plasma [2345-7] 04/06/2024 02:01 PM 150 mg/dL N Blood chemistry[[id number]] Glucose [Mass/volume] in Serum or Plasma [2345-7] 04/06/2024 12:56 PM 132 mg/dL N Blood chemistry[[id number]] Glucose [Mass/volume] in Serum or Plasma [2345-7] 04/06/2024 11:01 AM 137 mg/dL N Blood chemistry[[id number]] Glucose [Mass/volume] in Serum or Plasma [2345-7] 04/05/2024 05:50 PM 188 mg/dL N Blood chemistry[[id number]] Glucose [Mass/volume] in Serum or Plasma [2345-7] 04/05/2024 02:28 PM 160 mg/dL N Blood chemistry[[id number]] Glucose [Mass/volume] in Serum or Plasma [2345-7] 04/05/2024 12:22 PM 138 mg/dL N Blood chemistry[[id number]] Glucose [Mass/volume] in Serum or Plasma [2345-7] 04/05/2024 11:16 AM 142 mg/dL N Blood chemistry[[id number]] Glucose [Mass/volume] in Serum or Plasma [2345-7] 04/04/2024 04:49 PM 148 mg/dL N Blood chemistry[[id number]] Glucose [Mass/volume] in Serum or Plasma [2345-7] 04/04/2024 01:53 PM 88 mg/dL N Blood chemistry[[id number]] Glucose [Mass/volume] in Serum or Plasma [2345-7] 04/04/2024 12:37 PM 168 mg/dL N Blood chemistry[[id number]] Glucose [Mass/volume] in Serum or Plasma [2345-7] 04/04/2024 09:12 AM 82 mg/dL N Blood chemistry[[id number]] Glucose [Mass/volume] in Serum or Plasma [2345-7] 04/03/2024 03:05 PM 105 mg/dL N Blood chemistry[[id number]] Glucose [Mass/volume] in Serum or Plasma [2345-7] 04/03/2024 02:09 PM 147 mg/dL N Blood chemistry[[id number]] Glucose [Mass/volume] in Serum or Plasma [2345-7] 04/03/2024 10:57 AM 149 mg/dL N Blood chemistry[[id number]] Glucose [Mass/volume] in Serum or Plasma [2345-7] 04/03/2024 07:15 AM 74 mg/dL N Blood chemistry[[id number]] Glucose [Mass/volume] in Serum or Plasma [2345-7] 04/02/2024 02:05 PM 224 mg/dL N Blood chemistry[[id number]] Glucose [Mass/volume] in Serum or Plasma [2345-7] 04/02/2024 10:39 AM 185 mg/dL N Blood chemistry[[id number]] Glucose [Mass/volume] in Serum or Plasma [2345-7] 04/02/2024 07:38 AM 107 mg/dL N Blood chemistry[[id number]] Glucose [Mass/volume] in Serum or Plasma [2345-7] 04/02/2024 07:37 AM 103 mg/dL N Blood chemistry[[id number]] Glucose [Mass/volume] in Serum or Plasma [2345-7] 04/01/2024 05:02 PM 132 mg/dL N Blood chemistry[[id number]] Glucose [Mass/volume] in Serum or Plasma [2345-7] 04/01/2024 02:00 PM 195 mg/dL N Blood chemistry[[id number]] Glucose [Mass/volume] in Serum or Plasma [2345-7] 04/01/2024 11:43 AM 113 mg/dL N Blood chemistry[[id number]] Glucose [Mass/volume] in Serum or Plasma [2345-7] 04/01/2024 10:15 AM 142 mg/dL N Blood chemistry[[id number]] Glucose [Mass/volume] in Serum or Plasma [2345-7] 03/31/2024 04:03 PM 224 mg/dL N Blood chemistry[[id number]] Glucose [Mass/volume] in Serum or Plasma [2345-7] 03/31/2024 02:34 PM 173 mg/dL N Blood chemistry[[id number]] Glucose [Mass/volume] in Serum or Plasma [2345-7] 03/31/2024 12:11 PM 113 mg/dL N Blood chemistry[[id number]] Glucose [Mass/volume] in Serum or Plasma [2345-7] 03/31/2024 08:24 AM 107 mg/dL N Blood chemistry[[id number]] Glucose [Mass/volume] in Serum or Plasma [2345-7] 03/30/2024 05:19 PM 219 mg/dL N Blood chemistry[[id number]] Glucose [Mass/volume] in Serum or Plasma [2345-7] 03/30/2024 02:24 PM 242 mg/dL N Blood chemistry[[id number]] Glucose [Mass/volume] in Serum or Plasma [2345-7] 03/30/2024 12:45 PM 151 mg/dL N Blood chemistry[[id number]] Glucose [Mass/volume] in Serum or Plasma [2345-7] 03/30/2024 10:49 AM 194 mg/dL N Blood chemistry[[id number]] Glucose [Mass/volume] in Serum or Plasma [2345-7] 03/29/2024 05:12 PM 200 mg/dL N Blood chemistry[[id number]] Glucose [Mass/volume] in Serum or Plasma [2345-7] 03/29/2024 02:01 PM 114 mg/dL N Blood chemistry[[id number]] Glucose [Mass/volume] in Serum or Plasma [2345-7] 03/29/2024 12:34 PM 149 mg/dL N Blood chemistry[[id number]] Glucose [Mass/volume] in Serum or Plasma [2345-7] 03/29/2024 10:32 AM 95 mg/dL N Blood chemistry[[id number]] Glucose [Mass/volume] in Serum or Plasma [2345-7] 03/28/2024 03:44 PM 144 mg/dL N Blood chemistry[[id number]] Glucose [Mass/volume] in Serum or Plasma [2345-7] 03/28/2024 12:44 PM 134 mg/dL N Blood chemistry[[id number]] Glucose [Mass/volume] in Serum or Plasma [2345-7] 03/28/2024 11:26 AM 141 mg/dL N Blood chemistry[[id number]] Glucose [Mass/volume] in Serum or Plasma [2345-7] 03/28/2024 08:13 AM 173 mg/dL N Blood chemistry[[id number]] Glucose [Mass/volume] in Serum or Plasma [2345-7] 03/27/2024 05:15 PM 140 mg/dL N Blood chemistry[[id number]] Glucose [Mass/volume] in Serum or Plasma [2345-7] 03/27/2024 01:12 PM 121 mg/dL N Blood chemistry[[id number]] Glucose [Mass/volume] in Serum or Plasma [2345-7] 03/27/2024 12:33 PM 112 mg/dL N Blood chemistry[[id number]] Glucose [Mass/volume] in Serum or Plasma [2345-7] 03/27/2024 10:36 AM 120 mg/dL N Blood chemistry[[id number]] Glucose [Mass/volume] in Serum or Plasma [2345-7] 03/26/2024 04:45 PM 188 mg/dL N Blood chemistry[[id number]] Glucose [Mass/volume] in Serum or Plasma [2345-7] 03/26/2024 02:02 PM 145 mg/dL N Blood chemistry[[id number]] Glucose [Mass/volume] in Serum or Plasma [2345-7] 03/26/2024 01:12 PM 114 mg/dL N Blood chemistry[[id number]] Glucose [Mass/volume] in Serum or Plasma [2345-7] 03/26/2024 10:34 AM 136 mg/dL N Blood chemistry[[id number]] Glucose [Mass/volume] in Serum or Plasma [2345-7] 03/25/2024 05:24 PM 142 mg/dL N Blood chemistry[[id number]] Glucose [Mass/volume] in Serum or Plasma [2345-7] 03/25/2024 02:52 PM 406 mg/dL N Blood chemistry[[id number]] Glucose [Mass/volume] in Serum or Plasma [2345-7] 03/25/2024 12:36 PM 162 mg/dL N Blood chemistry[[id number]] Glucose [Mass/volume] in Serum or Plasma [2345-7] 03/25/2024 09:59 AM 62 mg/dL N Blood chemistry[[id number]] Glucose [Mass/volume] in Serum or Plasma [2345-7] 03/24/2024 05:29 PM 129 mg/dL N Blood chemistry[[id number]] Glucose [Mass/volume] in Serum or Plasma [2345-7] 03/24/2024 01:53 PM 188 mg/dL N Blood chemistry[[id number]] Glucose [Mass/volume] in Serum or Plasma [2345-7] 03/24/2024 12:33 PM 188 mg/dL N Blood chemistry[[id number]] Glucose [Mass/volume] in Serum or Plasma [2345-7] 03/24/2024 12:01 PM 124 mg/dL N Blood chemistry[[id number]] Glucose [Mass/volume] in Serum or Plasma [2345-7] 03/23/2024 05:01 PM 154 mg/dL N Blood chemistry[[id number]] Glucose [Mass/volume] in Serum or Plasma [2345-7] 03/23/2024 01:02 PM 129 mg/dL N Blood chemistry[[id number]] Glucose [Mass/volume] in Serum or Plasma [2345-7] 03/23/2024 12:27 PM 231 mg/dL N Blood chemistry[[id number]] Glucose [Mass/volume] in Serum or Plasma [2345-7] 03/23/2024 10:18 AM 189 mg/dL N Blood chemistry[[id number]] Glucose [Mass/volume] in Serum or Plasma [2345-7] 03/22/2024 03:20 PM 138 mg/dL N Blood chemistry[[id number]] Glucose [Mass/volume] in Serum or Plasma [2345-7] 03/22/2024 12:20 PM 243 mg/dL N Blood chemistry[[id number]] Glucose [Mass/volume] in Serum or Plasma [2345-7] 03/21/2024 05:30 PM 137 mg/dL N Blood chemistry[[id number]] Glucose [Mass/volume] in Serum or Plasma [2345-7] 03/21/2024 01:17 PM 113 mg/dL N Blood chemistry[[id number]] Glucose [Mass/volume] in Serum or Plasma [2345-7] 03/21/2024 12:22 PM 105 mg/dL N Blood chemistry[[id number]] Glucose [Mass/volume] in Serum or Plasma [2345-7] 03/21/2024 11:04 AM 173 mg/dL N Blood chemistry[[id number]] Glucose [Mass/volume] in Serum or Plasma [2345-7] 03/20/2024 05:56 PM 157 mg/dL N Blood chemistry[[id number]] Glucose [Mass/volume] in Serum or Plasma [2345-7] 03/20/2024 03:30 PM 109 mg/dL N Blood chemistry[[id number]] Glucose [Mass/volume] in Serum or Plasma [2345-7] 03/20/2024 01:22 PM 201 mg/dL N Blood chemistry[[id number]] Glucose [Mass/volume] in Serum or Plasma [2345-7] 03/20/2024 11:41 AM 109 mg/dL N Blood chemistry[[id number]] Glucose [Mass/volume] in Serum or Plasma [2345-7] 03/19/2024 05:46 PM 140 mg/dL N Blood chemistry[[id number]] Glucose [Mass/volume] in Serum or Plasma [2345-7] 03/19/2024 01:22 PM 130 mg/dL N Blood chemistry[[id number]] Glucose [Mass/volume] in Serum or Plasma [2345-7] 03/19/2024 12:51 PM 213 mg/dL N Blood chemistry[[id number]] Glucose [Mass/volume] in Serum or Plasma [2345-7] 03/19/2024 11:36 AM 116 mg/dL N Blood chemistry[[id number]] Glucose [Mass/volume] in Serum or Plasma [2345-7] 03/18/2024 05:57 PM 191 mg/dL N Blood chemistry[[id number]] Glucose [Mass/volume] in Serum or Plasma [2345-7] 03/18/2024 01:10 PM 155 mg/dL N Blood chemistry[[id number]] Glucose [Mass/volume] in Serum or Plasma [2345-7] 03/18/2024 01:04 PM 247 mg/dL N Blood chemistry[[id number]] Glucose [Mass/volume] in Serum or Plasma [2345-7] 03/18/2024 10:41 AM 74 mg/dL N Blood chemistry[[id number]] Glucose [Mass/volume] in Serum or Plasma [2345-7] 03/17/2024 06:46 PM 99 mg/dL N Blood chemistry[[id number]] Glucose [Mass/volume] in Serum or Plasma [2345-7] 03/17/2024 02:35 PM 152 mg/dL N Blood chemistry[[id number]] Glucose [Mass/volume] in Serum or Plasma [2345-7] 03/17/2024 02:11 PM 241 mg/dL N Blood chemistry[[id number]] Glucose [Mass/volume] in Serum or Plasma [2345-7] 03/17/2024 11:02 AM 98 mg/dL N Blood chemistry[[id number]] Glucose [Mass/volume] in Serum or Plasma [2345-7] 03/16/2024 04:58 PM 88 mg/dL N Blood chemistry[[id number]] Glucose [Mass/volume] in Serum or Plasma [2345-7] 03/16/2024 01:28 PM 126 mg/dL N Blood chemistry[[id number]] Glucose [Mass/volume] in Serum or Plasma [2345-7] 03/16/2024 12:36 PM 102 mg/dL N Blood chemistry[[id number]] Glucose [Mass/volume] in Serum or Plasma [2345-7] 03/16/2024 10:30 AM 172 mg/dL N Blood chemistry[[id number]] Glucose [Mass/volume] in Serum or Plasma [2345-7] 03/15/2024 05:23 PM 139 mg/dL N Blood chemistry[[id number]] Glucose [Mass/volume] in Serum or Plasma [2345-7] 03/15/2024 01:43 PM 90 mg/dL N Blood chemistry[[id number]] Glucose [Mass/volume] in Serum or Plasma [2345-7] 03/15/2024 12:38 PM 104 mg/dL N Blood chemistry[[id number]] Glucose [Mass/volume] in Serum or Plasma [2345-7] 03/15/2024 11:09 AM 162 mg/dL N Blood chemistry[[id number]] Glucose [Mass/volume] in Serum or Plasma [2345-7] 03/14/2024 05:11 PM 128 mg/dL N Blood chemistry[[id number]] Glucose [Mass/volume] in Serum or Plasma [2345-7] 03/14/2024 01:03 PM 76 mg/dL N Blood chemistry[[id number]] Glucose [Mass/volume] in Serum or Plasma [2345-7] 03/14/2024 12:55 PM 145 mg/dL N Blood chemistry[[id number]] Glucose [Mass/volume] in Serum or Plasma [2345-7] 03/14/2024 09:34 AM 119 mg/dL N Blood chemistry[[id number]] Glucose [Mass/volume] in Serum or Plasma [2345-7] 03/13/2024 05:43 PM 110 mg/dL N Blood chemistry[[id number]] Glucose [Mass/volume] in Serum or Plasma [2345-7] 03/13/2024 01:46 PM 88 mg/dL N Blood chemistry[[id number]] Glucose [Mass/volume] in Serum or Plasma [2345-7] 03/13/2024 01:39 PM 154 mg/dL N Blood chemistry[[id number]] Glucose [Mass/volume] in Serum or Plasma [2345-7] 03/13/2024 09:40 AM 138 mg/dL N Blood chemistry[[id number]] Glucose [Mass/volume] in Serum or Plasma [2345-7] 03/12/2024 05:22 PM 198 mg/dL N Blood chemistry[[id number]] Glucose [Mass/volume] in Serum or Plasma [2345-7] 03/12/2024 01:47 PM 115 mg/dL N Blood chemistry[[id number]] Glucose [Mass/volume] in Serum or Plasma [2345-7] 03/12/2024 01:46 PM 231 mg/dL N Blood chemistry[[id number]] Glucose [Mass/volume] in Serum or Plasma [2345-7] 03/12/2024 10:36 AM 126 mg/dL N Blood chemistry[[id number]] Glucose [Mass/volume] in Serum or Plasma [2345-7] 03/11/2024 05:27 PM 106 mg/dL N Blood chemistry[[id number]] Glucose [Mass/volume] in Serum or Plasma [2345-7] 03/11/2024 01:53 PM 207 mg/dL N Blood chemistry[[id number]] Glucose [Mass/volume] in Serum or Plasma [2345-7] 03/11/2024 01:28 PM 106 mg/dL N Blood chemistry[[id number]] Glucose [Mass/volume] in Serum or Plasma [2345-7] 03/11/2024 11:55 AM 110 mg/dL N Blood chemistry[[id number]] Glucose [Mass/volume] in Serum or Plasma [2345-7] 03/10/2024 06:23 PM 161 mg/dL N Blood chemistry[[id number]] Glucose [Mass/volume] in Serum or Plasma [2345-7] 03/10/2024 02:59 PM 139 mg/dL N Blood chemistry[[id number]] Glucose [Mass/volume] in Serum or Plasma [2345-7] 03/10/2024 01:21 PM 196 mg/dL N Blood chemistry[[id number]] Glucose [Mass/volume] in Serum or Plasma [2345-7] 03/10/2024 12:24 PM 113 mg/dL N Blood chemistry[[id number]] Glucose [Mass/volume] in Serum or Plasma [2345-7] 03/09/2024 05:24 PM 153 mg/dL N Blood chemistry[[id number]] Glucose [Mass/volume] in Serum or Plasma [2345-7] 03/09/2024 01:25 PM 151 mg/dL N Blood chemistry[[id number]] Glucose [Mass/volume] in Serum or Plasma [2345-7] 03/09/2024 01:04 PM 111 mg/dL N Blood chemistry[[id number]] Glucose [Mass/volume] in Serum or Plasma [2345-7] 03/09/2024 10:35 AM 159 mg/dL N Blood chemistry[[id number]] Glucose [Mass/volume] in Serum or Plasma [2345-7] 03/08/2024 06:13 PM 96 mg/dL N Blood chemistry[[id number]] Glucose [Mass/volume] in Serum or Plasma [2345-7] 03/08/2024 04:35 PM 125 mg/dL N Blood chemistry[[id number]] Glucose [Mass/volume] in Serum or Plasma [2345-7] 03/08/2024 01:21 PM 110 mg/dL N Blood chemistry[[id number]] Glucose [Mass/volume] in Serum or Plasma [2345-7] 03/08/2024 11:23 AM 111 mg/dL N Blood chemistry[[id number]] Glucose [Mass/volume] in Serum or Plasma [2345-7] 03/07/2024 04:40 PM 89 mg/dL N Blood chemistry[[id number]] Glucose [Mass/volume] in Serum or Plasma [2345-7] 03/07/2024 01:13 PM 183 mg/dL N Blood chemistry[[id number]] Glucose [Mass/volume] in Serum or Plasma [2345-7] 03/07/2024 12:49 PM 132 mg/dL N Blood chemistry[[id number]] Glucose [Mass/volume] in Serum or Plasma [2345-7] 03/07/2024 10:39 AM 124 mg/dL N Blood chemistry[[id number]] Glucose [Mass/volume] in Serum or Plasma [2345-7] 03/06/2024 02:53 PM 130 mg/dL N Blood chemistry[[id number]] Glucose [Mass/volume] in Serum or Plasma [2345-7] 03/06/2024 02:44 PM 116 mg/dL N Blood chemistry[[id number]] Glucose [Mass/volume] in Serum or Plasma [2345-7] 03/06/2024 07:30 AM 96 mg/dL N Blood chemistry[[id number]] Glucose [Mass/volume] in Serum or Plasma [2345-7] 03/05/2024 05:21 PM 160 mg/dL N Blood chemistry[[id number]] Glucose [Mass/volume] in Serum or Plasma [2345-7] 03/05/2024 01:16 PM 135 mg/dL N Blood chemistry[[id number]] Glucose [Mass/volume] in Serum or Plasma [2345-7] 03/05/2024 12:52 PM 120 mg/dL N Blood chemistry[[id number]] Glucose [Mass/volume] in Serum or Plasma [2345-7] 03/05/2024 11:02 AM 98 mg/dL N Blood chemistry[[id number]] Glucose [Mass/volume] in Serum or Plasma [2345-7] 03/04/2024 04:53 PM 106 mg/dL N Blood chemistry[[id number]] Glucose [Mass/volume] in Serum or Plasma [2345-7] 03/04/2024 12:56 PM 106 mg/dL N Blood chemistry[[id number]] Glucose [Mass/volume] in Serum or Plasma [2345-7] 03/04/2024 12:16 PM 180 mg/dL N Blood chemistry[[id number]] Glucose [Mass/volume] in Serum or Plasma [2345-7] 03/04/2024 09:12 AM 125 mg/dL N Blood chemistry[[id number]] Glucose [Mass/volume] in Serum or Plasma [2345-7] 03/03/2024 05:17 PM 89 mg/dL N Blood chemistry[[id number]] Glucose [Mass/volume] in Serum or Plasma [2345-7] 03/03/2024 12:56 PM 105 mg/dL N Blood chemistry[[id number]] Glucose [Mass/volume] in Serum or Plasma [2345-7] 03/03/2024 09:08 AM 98 mg/dL N Blood chemistry[[id number]] Glucose [Mass/volume] in Serum or Plasma [2345-7] 03/02/2024 04:53 PM 119 mg/dL N Blood chemistry[[id number]] Glucose [Mass/volume] in Serum or Plasma [2345-7] 03/02/2024 12:11 PM 162 mg/dL N Blood chemistry[[id number]] Glucose [Mass/volume] in Serum or Plasma [2345-7] 03/02/2024 11:58 AM 183 mg/dL N Blood chemistry[[id number]] Glucose [Mass/volume] in Serum or Plasma [2345-7] 03/02/2024 09:03 AM 128 mg/dL N Blood chemistry[[id number]] Glucose [Mass/volume] in Serum or Plasma [2345-7] 03/01/2024 04:33 PM 128 mg/dL N Blood chemistry[[id number]] Glucose [Mass/volume] in Serum or Plasma [2345-7] 03/01/2024 03:30 PM 93 mg/dL N Blood chemistry[[id number]] Glucose [Mass/volume] in Serum or Plasma [2345-7] 03/01/2024 11:56 AM 122 mg/dL N Blood chemistry[[id number]] Glucose [Mass/volume] in Serum or Plasma [2345-7] 03/01/2024 10:54 AM 114 mg/dL N Blood chemistry[[id number]] Glucose [Mass/volume] in Serum or Plasma [2345-7] 02/29/2024 04:17 PM 137 mg/dL N Blood chemistry[[id number]] Glucose [Mass/volume] in Serum or Plasma [2345-7] 02/29/2024 12:17 PM 86 mg/dL N Blood chemistry[[id number]] Glucose [Mass/volume] in Serum or Plasma [2345-7] 02/29/2024 12:14 PM 138 mg/dL N Blood chemistry[[id number]] Glucose [Mass/volume] in Serum or Plasma [2345-7] 02/29/2024 09:33 AM 133 mg/dL N Blood chemistry[[id number]] Glucose [Mass/volume] in Serum or Plasma [2345-7] 02/28/2024 03:54 PM 119 mg/dL N Blood chemistry[[id number]] Glucose [Mass/volume] in Serum or Plasma [2345-7] 02/28/2024 01:31 PM 133 mg/dL N Blood chemistry[[id number]] Glucose [Mass/volume] in Serum or Plasma [2345-7] 02/28/2024 11:59 AM 165 mg/dL N Blood chemistry[[id number]] Glucose [Mass/volume] in Serum or Plasma [2345-7] 02/28/2024 09:47 AM 137 mg/dL N Blood chemistry[[id number]] Glucose [Mass/volume] in Serum or Plasma [2345-7] 02/27/2024 04:24 PM 125 mg/dL N Blood chemistry[[id number]] Glucose [Mass/volume] in Serum or Plasma [2345-7] 02/27/2024 12:43 PM 131 mg/dL N Blood chemistry[[id number]] Glucose [Mass/volume] in Serum or Plasma [2345-7] 02/27/2024 12:20 PM 220 mg/dL N Blood chemistry[[id number]] Glucose [Mass/volume] in Serum or Plasma [2345-7] 02/27/2024 10:32 AM 122 mg/dL N Blood chemistry[[id number]] Glucose [Mass/volume] in Serum or Plasma [2345-7] 02/26/2024 03:06 PM 133 mg/dL N Blood chemistry[[id number]] Glucose [Mass/volume] in Serum or Plasma [2345-7] 02/26/2024 12:24 PM 265 mg/dL N Blood chemistry[[id number]] Glucose [Mass/volume] in Serum or Plasma [2345-7] 02/26/2024 11:47 AM 147 mg/dL N Blood chemistry[[id number]] Glucose [Mass/volume] in Serum or Plasma [2345-7] 02/26/2024 06:49 AM 305 mg/dL N Blood chemistry[[id number]] Glucose [Mass/volume] in Serum or Plasma [2345-7] 02/25/2024 02:51 PM 300 mg/dL N Blood chemistry[[id number]] Glucose [Mass/volume] in Serum or Plasma [2345-7] 02/25/2024 02:36 PM 123 mg/dL N Blood chemistry[[id number]] Glucose [Mass/volume] in Serum or Plasma [2345-7] 02/25/2024 10:13 AM 47 mg/dL N Blood chemistry[[id number]] Glucose [Mass/volume] in Serum or Plasma [2345-7] 02/24/2024 04:24 PM 239 mg/dL N Blood chemistry[[id number]] Glucose [Mass/volume] in Serum or Plasma [2345-7] 02/24/2024 12:53 PM 200 mg/dL N Blood chemistry[[id number]] Glucose [Mass/volume] in Serum or Plasma [2345-7] 02/24/2024 12:21 PM 163 mg/dL N Blood chemistry[[id number]] Glucose [Mass/volume] in Serum or Plasma [2345-7] 02/24/2024 09:20 AM 142 mg/dL N Blood chemistry[[id number]] Glucose [Mass/volume] in Serum or Plasma [2345-7] 02/23/2024 04:28 PM 105 mg/dL N Blood chemistry[[id number]] Glucose [Mass/volume] in Serum or Plasma [2345-7] 02/23/2024 12:40 PM 119 mg/dL N Blood chemistry[[id number]] Glucose [Mass/volume] in Serum or Plasma [2345-7] 02/23/2024 11:56 AM 197 mg/dL N Blood chemistry[[id number]] Glucose [Mass/volume] in Serum or Plasma [2345-7] 02/23/2024 09:10 AM 151 mg/dL N Blood chemistry[[id number]] Glucose [Mass/volume] in Serum or Plasma [2345-7] 02/22/2024 04:05 PM 142 mg/dL N Blood chemistry[[id number]] Glucose [Mass/volume] in Serum or Plasma [2345-7] 02/22/2024 12:17 PM 267 mg/dL N Blood chemistry[[id number]] Glucose [Mass/volume] in Serum or Plasma [2345-7] 02/22/2024 12:11 PM 150 mg/dL N Blood chemistry[[id number]] Glucose [Mass/volume] in Serum or Plasma [2345-7] 02/22/2024 11:27 AM 129 mg/dL N Blood chemistry[[id number]] Glucose [Mass/volume] in Serum or Plasma [2345-7] 02/21/2024 05:26 PM 118 mg/dL N COVID-19 Test Viral Antigen null flavor [null] 02/21/2024 05:00 PM See note NEG COVID-19 Test Viral Antigen Blood chemistry[[id number]] Glucose [Mass/volume] in Serum or Plasma [2345-7] 02/21/2024 12:53 PM 134 mg/dL N Blood chemistry[[id number]] Glucose [Mass/volume] in Serum or Plasma [2345-7] 02/21/2024 12:33 PM 204 mg/dL N Blood chemistry[[id number]] Glucose [Mass/volume] in Serum or Plasma [2345-7] 02/21/2024 09:38 AM 220 mg/dL N Blood chemistry[[id number]] Glucose [Mass/volume] in Serum or Plasma [2345-7] 02/20/2024 05:03 PM 120 mg/dL N Blood chemistry[[id number]] Glucose [Mass/volume] in Serum or Plasma [2345-7] 02/20/2024 05:02 PM 132 mg/dL N Blood chemistry[[id number]] Glucose [Mass/volume] in Serum or Plasma [2345-7] 02/20/2024 12:38 PM 304 mg/dL N Blood chemistry[[id number]] Glucose [Mass/volume] in Serum or Plasma [2345-7] 02/20/2024 10:54 AM 141 mg/dL N Blood chemistry[[id number]] Glucose [Mass/volume] in Serum or Plasma [2345-7] 02/19/2024 04:48 PM 124 mg/dL N Blood chemistry[[id number]] Glucose [Mass/volume] in Serum or Plasma [2345-7] 02/19/2024 02:23 PM 148 mg/dL N Blood chemistry[[id number]] Glucose [Mass/volume] in Serum or Plasma [2345-7] 02/19/2024 12:04 PM 173 mg/dL N Blood chemistry[[id number]] Glucose [Mass/volume] in Serum or Plasma [2345-7] 02/19/2024 11:30 AM 213 mg/dL N Blood chemistry[[id number]] Glucose [Mass/volume] in Serum or Plasma [2345-7] 02/18/2024 05:03 PM 135 mg/dL N Blood chemistry[[id number]] Glucose [Mass/volume] in Serum or Plasma [2345-7] 02/18/2024 01:09 PM 135 mg/dL N Blood chemistry[[id number]] Glucose [Mass/volume] in Serum or Plasma [2345-7] 02/18/2024 09:42 AM 236 mg/dL N Blood chemistry[[id number]] Glucose [Mass/volume] in Serum or Plasma [2345-7] 02/17/2024 04:41 PM 234 mg/dL N Blood chemistry[[id number]] Glucose [Mass/volume] in Serum or Plasma [2345-7] 02/17/2024 02:07 PM 99 mg/dL N Blood chemistry[[id number]] Glucose [Mass/volume] in Serum or Plasma [2345-7] 02/17/2024 11:40 AM 194 mg/dL N Blood chemistry[[id number]] Glucose [Mass/volume] in Serum or Plasma [2345-7] 02/17/2024 09:25 AM 166 mg/dL N Blood chemistry[[id number]] Glucose [Mass/volume] in Serum or Plasma [2345-7] 02/16/2024 04:08 PM 191 mg/dL N Blood chemistry[[id number]] Glucose [Mass/volume] in Serum or Plasma [2345-7] 02/16/2024 02:50 PM 115 mg/dL N Blood chemistry[[id number]] Glucose [Mass/volume] in Serum or Plasma [2345-7] 02/16/2024 11:48 AM 203 mg/dL N Blood chemistry[[id number]] Glucose [Mass/volume] in Serum or Plasma [2345-7] 02/16/2024 09:15 AM 174 mg/dL N Blood chemistry[[id number]] Glucose [Mass/volume] in Serum or Plasma [2345-7] 02/15/2024 04:30 PM 136 mg/dL N Blood chemistry[[id number]] Glucose [Mass/volume] in Serum or Plasma [2345-7] 02/15/2024 12:13 PM 93 mg/dL N Blood chemistry[[id number]] Glucose [Mass/volume] in Serum or Plasma [2345-7] 02/15/2024 12:09 PM 144 mg/dL N Blood chemistry[[id number]] Glucose [Mass/volume] in Serum or Plasma [2345-7] 02/15/2024 09:05 AM 110 mg/dL N COVID-19 Test Viral Antigen null flavor [null] 02/14/2024 05:00 PM See note NEG COVID-19 Test Viral Antigen Blood chemistry[[id number]] Glucose [Mass/volume] in Serum or Plasma [2345-7] 02/14/2024 04:36 PM 215 mg/dL N Blood chemistry[[id number]] Glucose [Mass/volume] in Serum or Plasma [2345-7] 02/14/2024 03:26 PM 132 mg/dL N Blood chemistry[[id number]] Glucose [Mass/volume] in Serum or Plasma [2345-7] 02/14/2024 12:09 PM 290 mg/dL N Blood chemistry[[id number]] Glucose [Mass/volume] in Serum or Plasma [2345-7] 02/14/2024 08:14 AM 251 mg/dL N Blood chemistry[[id number]] Glucose [Mass/volume] in Serum or Plasma [2345-7] 02/13/2024 05:06 PM 220 mg/dL N Blood chemistry[[id number]] Glucose [Mass/volume] in Serum or Plasma [2345-7] 02/13/2024 12:59 PM 127 mg/dL N Blood chemistry[[id number]] Glucose [Mass/volume] in Serum or Plasma [2345-7] 02/13/2024 12:34 PM 318 mg/dL N Blood chemistry[[id number]] Glucose [Mass/volume] in Serum or Plasma [2345-7] 02/13/2024 09:48 AM 212 mg/dL N Blood chemistry[[id number]] Glucose [Mass/volume] in Serum or Plasma [2345-7] 02/12/2024 04:32 PM 165 mg/dL N Blood chemistry[[id number]] Glucose [Mass/volume] in Serum or Plasma [2345-7] 02/12/2024 12:12 PM 136 mg/dL N Blood chemistry[[id number]] Glucose [Mass/volume] in Serum or Plasma [2345-7] 02/12/2024 12:01 PM 222 mg/dL N Blood chemistry[[id number]] Glucose [Mass/volume] in Serum or Plasma [2345-7] 02/12/2024 09:21 AM 223 mg/dL N Blood chemistry[[id number]] Glucose [Mass/volume] in Serum or Plasma [2345-7] 02/11/2024 05:30 PM 139 mg/dL N Blood chemistry[[id number]] Glucose [Mass/volume] in Serum or Plasma [2345-7] 02/11/2024 01:03 PM 112 mg/dL N Blood chemistry[[id number]] Glucose [Mass/volume] in Serum or Plasma [2345-7] 02/11/2024 12:59 PM 85 mg/dL N Blood chemistry[[id number]] Glucose [Mass/volume] in Serum or Plasma [2345-7] 02/11/2024 10:02 AM 232 mg/dL N Blood chemistry[[id number]] Glucose [Mass/volume] in Serum or Plasma [2345-7] 02/11/2024 06:04 AM 261 mg/dL N Blood chemistry[[id number]] Glucose [Mass/volume] in Serum or Plasma [2345-7] 02/10/2024 02:49 PM 112 mg/dL N Blood chemistry[[id number]] Glucose [Mass/volume] in Serum or Plasma [2345-7] 02/10/2024 06:48 AM 182 mg/dL N Blood chemistry[[id number]] Glucose [Mass/volume] in Serum or Plasma [2345-7] 02/09/2024 05:10 PM 94 mg/dL N Blood chemistry[[id number]] Glucose [Mass/volume] in Serum or Plasma [2345-7] 02/09/2024 01:10 PM 109 mg/dL N Blood chemistry[[id number]] Glucose [Mass/volume] in Serum or Plasma [2345-7] 02/09/2024 12:10 PM 147 mg/dL N Blood chemistry[[id number]] Glucose [Mass/volume] in Serum or Plasma [2345-7] 02/09/2024 11:23 AM 93 mg/dL N Blood chemistry[[id number]] Glucose [Mass/volume] in Serum or Plasma [2345-7] 02/08/2024 05:28 PM 70 mg/dL N Blood chemistry[[id number]] Glucose [Mass/volume] in Serum or Plasma [2345-7] 02/08/2024 02:29 PM 108 mg/dL N Blood chemistry[[id number]] Glucose [Mass/volume] in Serum or Plasma [2345-7] 02/08/2024 08:38 AM 142 mg/dL N Blood chemistry[[id number]] Glucose [Mass/volume] in Serum or Plasma [2345-7] 02/07/2024 05:54 PM 89 mg/dL N COVID-19 Test Viral Antigen null flavor [null] 02/07/2024 05:00 PM See note NEG COVID-19 Test Viral Antigen Blood chemistry[[id number]] Glucose [Mass/volume] in Serum or Plasma [2345-7] 02/07/2024 02:22 PM 68 mg/dL N Blood chemistry[[id number]] Glucose [Mass/volume] in Serum or Plasma [2345-7] 02/07/2024 01:24 PM 81 mg/dL N Blood chemistry[[id number]] Glucose [Mass/volume] in Serum or Plasma [2345-7] 02/07/2024 10:43 AM 87 mg/dL N Blood chemistry[[id number]] Glucose [Mass/volume] in Serum or Plasma [2345-7] 02/06/2024 04:49 PM 123 mg/dL N Blood chemistry[[id number]] Glucose [Mass/volume] in Serum or Plasma [2345-7] 02/06/2024 03:09 PM 112 mg/dL N Blood chemistry[[id number]] Glucose [Mass/volume] in Serum or Plasma [2345-7] 02/06/2024 12:04 PM 127 mg/dL N Blood chemistry[[id number]] Glucose [Mass/volume] in Serum or Plasma [2345-7] 02/06/2024 08:54 AM 113 mg/dL N Blood chemistry[[id number]] Glucose [Mass/volume] in Serum or Plasma [2345-7] 02/05/2024 05:36 PM 163 mg/dL N Blood chemistry[[id number]] Glucose [Mass/volume] in Serum or Plasma [2345-7] 02/05/2024 01:32 PM 93 mg/dL N Blood chemistry[[id number]] Glucose [Mass/volume] in Serum or Plasma [2345-7] 02/05/2024 12:57 PM 101 mg/dL N Blood chemistry[[id number]] Glucose [Mass/volume] in Serum or Plasma [2345-7] 02/05/2024 11:26 AM 132 mg/dL N Blood chemistry[[id number]] Glucose [Mass/volume] in Serum or Plasma [2345-7] 02/04/2024 05:27 PM 70 mg/dL N Blood chemistry[[id number]] Glucose [Mass/volume] in Serum or Plasma [2345-7] 02/04/2024 03:10 PM 134 mg/dL N Blood chemistry[[id number]] Glucose [Mass/volume] in Serum or Plasma [2345-7] 02/04/2024 01:33 PM 205 mg/dL N Blood chemistry[[id number]] Glucose [Mass/volume] in Serum or Plasma [2345-7] 02/04/2024 11:19 AM 85 mg/dL N Blood chemistry[[id number]] Glucose [Mass/volume] in Serum or Plasma [2345-7] 02/03/2024 03:46 PM 154 mg/dL N Blood chemistry[[id number]] Glucose [Mass/volume] in Serum or Plasma [2345-7] 02/03/2024 12:23 PM 174 mg/dL N Blood chemistry[[id number]] Glucose [Mass/volume] in Serum or Plasma [2345-7] 02/03/2024 11:49 AM 179 mg/dL N Blood chemistry[[id number]] Glucose [Mass/volume] in Serum or Plasma [2345-7] 02/03/2024 10:13 AM 148 mg/dL N Blood chemistry[[id number]] Glucose [Mass/volume] in Serum or Plasma [2345-7] 02/02/2024 04:08 PM 90 mg/dL N Blood chemistry[[id number]] Glucose [Mass/volume] in Serum or Plasma [2345-7] 02/02/2024 12:22 PM 150 mg/dL N Blood chemistry[[id number]] Glucose [Mass/volume] in Serum or Plasma [2345-7] 02/02/2024 12:17 PM 171 mg/dL N Blood chemistry[[id number]] Glucose [Mass/volume] in Serum or Plasma [2345-7] 02/02/2024 08:57 AM 216 mg/dL N Blood chemistry[[id number]] Glucose [Mass/volume] in Serum or Plasma [2345-7] 02/01/2024 05:48 PM 98 mg/dL N Blood chemistry[[id number]] Glucose [Mass/volume] in Serum or Plasma [2345-7] 02/01/2024 12:42 PM 81 mg/dL N Blood chemistry[[id number]] Glucose [Mass/volume] in Serum or Plasma [2345-7] 02/01/2024 12:01 PM 220 mg/dL N Blood chemistry[[id number]] Glucose [Mass/volume] in Serum or Plasma [2345-7] 02/01/2024 10:09 AM 98 mg/dL N Blood chemistry[[id number]] Glucose [Mass/volume] in Serum or Plasma [2345-7] 01/31/2024 05:34 PM 97 mg/dL N COVID-19 Test Viral Antigen null flavor [null] 01/31/2024 05:00 PM See note NEG COVID-19 Test Viral Antigen Blood chemistry[[id number]] Glucose [Mass/volume] in Serum or Plasma [2345-7] 01/31/2024 02:15 PM 137 mg/dL N Blood chemistry[[id number]] Glucose [Mass/volume] in Serum or Plasma [2345-7] 01/31/2024 12:58 PM 163 mg/dL N Blood chemistry[[id number]] Glucose [Mass/volume] in Serum or Plasma [2345-7] 01/31/2024 09:18 AM 94 mg/dL N Blood chemistry[[id number]] Glucose [Mass/volume] in Serum or Plasma [2345-7] 01/30/2024 04:30 PM 78 mg/dL N Blood chemistry[[id number]] Glucose [Mass/volume] in Serum or Plasma [2345-7] 01/30/2024 12:26 PM 234 mg/dL N Blood chemistry[[id number]] Glucose [Mass/volume] in Serum or Plasma [2345-7] 01/30/2024 12:17 PM 84 mg/dL N Blood chemistry[[id number]] Glucose [Mass/volume] in Serum or Plasma [2345-7] 01/30/2024 09:31 AM 131 mg/dL N Blood chemistry[[id number]] Glucose [Mass/volume] in Serum or Plasma [2345-7] 01/29/2024 04:09 PM 135 mg/dL N Blood chemistry[[id number]] Glucose [Mass/volume] in Serum or Plasma [2345-7] 01/29/2024 01:51 PM 150 mg/dL N Blood chemistry[[id number]] Glucose [Mass/volume] in Serum or Plasma [2345-7] 01/29/2024 12:02 PM 117 mg/dL N Blood chemistry[[id number]] Glucose [Mass/volume] in Serum or Plasma [2345-7] 01/29/2024 09:26 AM 102 mg/dL N Blood chemistry[[id number]] Glucose [Mass/volume] in Serum or Plasma [2345-7] 01/28/2024 05:12 PM 118 mg/dL N Blood chemistry[[id number]] Glucose [Mass/volume] in Serum or Plasma [2345-7] 01/28/2024 12:48 PM 88 mg/dL N Blood chemistry[[id number]] Glucose [Mass/volume] in Serum or Plasma [2345-7] 01/28/2024 12:33 PM 110 mg/dL N Blood chemistry[[id number]] Glucose [Mass/volume] in Serum or Plasma [2345-7] 01/28/2024 11:12 AM 112 mg/dL N Blood chemistry[[id number]] Glucose [Mass/volume] in Serum or Plasma [2345-7] 01/27/2024 05:56 PM 102 mg/dL N Blood chemistry[[id number]] Glucose [Mass/volume] in Serum or Plasma [2345-7] 01/27/2024 01:10 PM 97 mg/dL N Blood chemistry[[id number]] Glucose [Mass/volume] in Serum or Plasma [2345-7] 01/27/2024 11:38 AM 140 mg/dL N Blood chemistry[[id number]] Glucose [Mass/volume] in Serum or Plasma [2345-7] 01/27/2024 09:57 AM 100 mg/dL N Blood chemistry[[id number]] Glucose [Mass/volume] in Serum or Plasma [2345-7] 01/26/2024 04:54 PM 130 mg/dL N Blood chemistry[[id number]] Glucose [Mass/volume] in Serum or Plasma [2345-7] 01/26/2024 12:36 PM 126 mg/dL N Blood chemistry[[id number]] Glucose [Mass/volume] in Serum or Plasma [2345-7] 01/26/2024 12:03 PM 92 mg/dL N Blood chemistry[[id number]] Glucose [Mass/volume] in Serum or Plasma [2345-7] 01/26/2024 09:37 AM 107 mg/dL N Blood chemistry[[id number]] Glucose [Mass/volume] in Serum or Plasma [2345-7] 01/25/2024 03:08 PM 111 mg/dL N Blood chemistry[[id number]] Glucose [Mass/volume] in Serum or Plasma [2345-7] 01/25/2024 12:08 PM 125 mg/dL N Blood chemistry[[id number]] Glucose [Mass/volume] in Serum or Plasma [2345-7] 01/25/2024 09:38 AM 121 mg/dL N Blood chemistry[[id number]] Glucose [Mass/volume] in Serum or Plasma [2345-7] 01/25/2024 06:07 AM 116 mg/dL N COVID-19 Test Viral Antigen null flavor [null] 01/24/2024 05:00 PM See note NEG COVID-19 Test Viral Antigen Blood chemistry[[id number]] Glucose [Mass/volume] in Serum or Plasma [2345-7] 01/24/2024 03:01 PM 96 mg/dL N Blood chemistry[[id number]] Glucose [Mass/volume] in Serum or Plasma [2345-7] 01/24/2024 11:40 AM 236 mg/dL N Blood chemistry[[id number]] Glucose [Mass/volume] in Serum or Plasma [2345-7] 01/24/2024 10:33 AM 96 mg/dL N Blood chemistry[[id number]] Glucose [Mass/volume] in Serum or Plasma [2345-7] 01/24/2024 08:24 AM 154 mg/dL N Blood chemistry[[id number]] Glucose [Mass/volume] in Serum or Plasma [2345-7] 01/23/2024 05:05 PM 95 mg/dL N Blood chemistry[[id number]] Glucose [Mass/volume] in Serum or Plasma [2345-7] 01/23/2024 02:23 PM 151 mg/dL N Blood chemistry[[id number]] Glucose [Mass/volume] in Serum or Plasma [2345-7] 01/23/2024 01:15 PM 150 mg/dL N Blood chemistry[[id number]] Glucose [Mass/volume] in Serum or Plasma [2345-7] 01/23/2024 11:09 AM 158 mg/dL N Blood chemistry[[id number]] Glucose [Mass/volume] in Serum or Plasma [2345-7] 01/22/2024 05:45 PM 119 mg/dL N Blood chemistry[[id number]] Glucose [Mass/volume] in Serum or Plasma [2345-7] 01/22/2024 03:45 PM 103 mg/dL N Blood chemistry[[id number]] Glucose [Mass/volume] in Serum or Plasma [2345-7] 01/22/2024 01:47 PM 118 mg/dL N Blood chemistry[[id number]] Glucose [Mass/volume] in Serum or Plasma [2345-7] 01/22/2024 09:28 AM 207 mg/dL N Blood chemistry[[id number]] Glucose [Mass/volume] in Serum or Plasma [2345-7] 01/21/2024 04:07 PM 143 mg/dL N Blood chemistry[[id number]] Glucose [Mass/volume] in Serum or Plasma [2345-7] 01/21/2024 02:06 PM 148 mg/dL N Blood chemistry[[id number]] Glucose [Mass/volume] in Serum or Plasma [2345-7] 01/21/2024 12:36 PM 95 mg/dL N Blood chemistry[[id number]] Glucose [Mass/volume] in Serum or Plasma [2345-7] 01/21/2024 10:23 AM 130 mg/dL N Blood chemistry[[id number]] Glucose [Mass/volume] in Serum or Plasma [2345-7] 01/20/2024 04:58 PM 178 mg/dL N Blood chemistry[[id number]] Glucose [Mass/volume] in Serum or Plasma [2345-7] 01/20/2024 12:17 PM 111 mg/dL N Blood chemistry[[id number]] Glucose [Mass/volume] in Serum or Plasma [2345-7] 01/20/2024 12:12 PM 172 mg/dL N Blood chemistry[[id number]] Glucose [Mass/volume] in Serum or Plasma [2345-7] 01/20/2024 10:08 AM 206 mg/dL N Blood chemistry[[id number]] Glucose [Mass/volume] in Serum or Plasma [2345-7] 01/19/2024 04:05 PM 144 mg/dL N Blood chemistry[[id number]] Glucose [Mass/volume] in Serum or Plasma [2345-7] 01/19/2024 12:35 PM 108 mg/dL N Blood chemistry[[id number]] Glucose [Mass/volume] in Serum or Plasma [2345-7] 01/19/2024 11:42 AM 266 mg/dL N Blood chemistry[[id number]] Glucose [Mass/volume] in Serum or Plasma [2345-7] 01/19/2024 09:21 AM 224 mg/dL N Blood chemistry[[id number]] Glucose [Mass/volume] in Serum or Plasma [2345-7] 01/18/2024 04:32 PM 129 mg/dL N Blood chemistry[[id number]] Glucose [Mass/volume] in Serum or Plasma [2345-7] 01/18/2024 02:31 PM 96 mg/dL N Blood chemistry[[id number]] Glucose [Mass/volume] in Serum or Plasma [2345-7] 01/18/2024 11:59 AM 169 mg/dL N Blood chemistry[[id number]] Glucose [Mass/volume] in Serum or Plasma [2345-7] 01/18/2024 10:02 AM 154 mg/dL N COVID-19 Test Viral Antigen null flavor [null] 01/17/2024 05:00 PM See note NEG COVID-19 Test Viral Antigen Blood chemistry[[id number]] Glucose [Mass/volume] in Serum or Plasma [2345-7] 01/17/2024 04:59 PM 207 mg/dL N Blood chemistry[[id number]] Glucose [Mass/volume] in Serum or Plasma [2345-7] 01/17/2024 02:12 PM 83 mg/dL N Blood chemistry[[id number]] Glucose [Mass/volume] in Serum or Plasma [2345-7] 01/17/2024 12:42 PM 174 mg/dL N Blood chemistry[[id number]] Glucose [Mass/volume] in Serum or Plasma [2345-7] 01/17/2024 09:38 AM 197 mg/dL N Blood chemistry[[id number]] Glucose [Mass/volume] in Serum or Plasma [2345-7] 01/16/2024 03:59 PM 93 mg/dL N Blood chemistry[[id number]] Glucose [Mass/volume] in Serum or Plasma [2345-7] 01/16/2024 12:17 PM 145 mg/dL N Blood chemistry[[id number]] Glucose [Mass/volume] in Serum or Plasma [2345-7] 01/16/2024 12:10 PM 97 mg/dL N Blood chemistry[[id number]] Glucose [Mass/volume] in Serum or Plasma [2345-7] 01/16/2024 09:24 AM 118 mg/dL N Blood chemistry[[id number]] Glucose [Mass/volume] in Serum or Plasma [2345-7] 01/15/2024 12:55 PM 187 mg/dL N Blood chemistry[[id number]] Glucose [Mass/volume] in Serum or Plasma [2345-7] 01/15/2024 12:44 PM 114 mg/dL N Blood chemistry[[id number]] Glucose [Mass/volume] in Serum or Plasma [2345-7] 01/15/2024 11:02 AM 185 mg/dL N Blood chemistry[[id number]] Glucose [Mass/volume] in Serum or Plasma [2345-7] 01/15/2024 06:57 AM 150 mg/dL N Blood chemistry[[id number]] Glucose [Mass/volume] in Serum or Plasma [2345-7] 01/14/2024 05:26 PM 221 mg/dL N Blood chemistry[[id number]] Glucose [Mass/volume] in Serum or Plasma [2345-7] 01/14/2024 12:33 PM 121 mg/dL N Blood chemistry[[id number]] Glucose [Mass/volume] in Serum or Plasma [2345-7] 01/14/2024 12:24 PM 266 mg/dL N Blood chemistry[[id number]] Glucose [Mass/volume] in Serum or Plasma [2345-7] 01/14/2024 09:53 AM 346 mg/dL N Blood chemistry[[id number]] Glucose [Mass/volume] in Serum or Plasma [2345-7] 01/13/2024 04:51 PM 199 mg/dL N Blood chemistry[[id number]] Glucose [Mass/volume] in Serum or Plasma [2345-7] 01/13/2024 12:26 PM 125 mg/dL N Blood chemistry[[id number]] Glucose [Mass/volume] in Serum or Plasma [2345-7] 01/13/2024 12:12 PM 256 mg/dL N Blood chemistry[[id number]] Glucose [Mass/volume] in Serum or Plasma [2345-7] 01/13/2024 10:45 AM 233 mg/dL N Allergies, adverse reactions, alerts Substance Reaction Date Status Type Penicillins (PCN) 08/22/2018 Non Julian g Raspberry 08/22/2018 Non Drug Immunizations Vaccine Route Date Status COVID-19 Vaccine Unassigned Route of Administration Completed COVID-19 Vaccine Unassigned Route of Administration Completed COVID-19 Vaccine Unassigned Route of Administration Completed COVID-19 Vaccine Unassigned Route of Administration Completed COVID-19 Vaccine Unassigned Route of Administration Completed COVID-19 Vaccine Unassigned Route of Administration Completed COVID-19 Vaccine Unassigned Route of Administration Completed COVID-19 Vaccine Unassigned Route of Administration Completed Influenza Vaccine Unassigned Route of Administration 1 Completed Influenza Vaccine Unassigned Route of Administration 1 Completed Influenza Vaccine Unassigned Route of Administration 1 Completed Influenza Vaccine Unassigned Route of Administration 1 05/06/2019 Completed Influenza Vaccine Unassigned Route of Administration 1 Completed Influenza Vaccine Unassigned Route of Administration 1 Completed Influenza Vaccine Unassigned Route of Administration 1 Refused Influenza Vaccine Unassigned Route of Administration 1 Refused Pneumococcal Vaccine Unassigned Route of Administratio n 11/20/2019 Refused Pneumococcal Vaccine Unassigned Route of Administratio n 08/23/2018 Refused Pneumococcal Vaccine Unassigned Route of Administratio n 01/18/2023 Refused Pneumococcal Vaccine Unassigned Route of Administratio n 01/22/2022 Refused Pneumococcal Vaccine Unassigned Route of Administratio n 08/23/2020 Refused RSV Vaccine Unassigned Route of Administration 2022 Completed Medications Medication Instructions Route Dosage Frequency Start Date Stop Date Indications Status amiodarone 200 mg tablet (amiodarone) 1 tab, oral, Once A Day oral 1.0 1.0 d 2023 Chronic venous hypertension (idiopathic) without complications of bilateral lower extremity Active atorvastatin 10 mg tablet (atorvastatin) 1 tablet, PO, Once A Day 1.0 1.0 d 06/26 Hyperlipidemia , unspecified Active bisacodyl 10 mg suppository (bisacodyl) 1 suppository, RC, Once A Day - PRN, If no results from MOM. Clinical Indication: Constipation 1.0 1.0 d 2022 Active bisacodyl 5 mg tablet,delayed release (DR/EC) (bisacodyl) 1 tablet, PO, Once A Day - PRN, Clinical Indication: Constipation 1.0 1.0 d 2022 Active bumetanide 0.5 mg tablet (bumetanide) 1 tab, oral, Once A Day oral 1.0 1.0 d 2023 Active cholecalcifero l (vitamin D3) 25 mcg (1,000 unit) tablet (cholecalcifer ol (vitamin D3)) 2 tabs (2,000 unit), oral, Once A Day oral 1.0 1.0 d 06/26 Active collagen, hydrolyzed Collagen 500mg capsule (collagen, hydrolyzed Collagen) 2, oral, Once A Day, Administer 2 capsules PO daily oral 1.0 1.0 d 06/26 Active Dakin's Solution (sodium hypochlorite) 0.125 % solution (Dakin's Solution (sodium hypochlorite)) as directed, miscellaneous , Once A Day, Left knee: cleanse with ns and gauze, apply 1/4 packing strip dakins damped coated in gentamycin to open areas, cover with bordered foam 1.0 1.0 d 05/03 Active Eliquis (apixaban) 5 mg tablet (Eliquis (apixaban)) 1 tab, oral, Twice A Day oral 1.0 12.0 h 2023 Paroxysmal atrial fibrillation Active Flonase Allergy Relief (fluticasone propionate) 50 mcg/actuation spray,suspensi on (Flonase Allergy Relief (fluticasone propionate)) 1 spray, nasal, Once A Day - PRN nasal 1.0 1.0 d 06/26 Active gentamicin 0.1 % ointment (gentamicin) as directed, topical, Once A Day, Left knee: cleanse with ns and gauze, apply 1/4 packing strip dakins damped coated in gentamycin to open areas, cover with bordered foam topical 1.0 1.0 d 05/03 Active hydrocodone-ac etaminophen 10-325 mg tablet (hydrocodone-a cetaminophen) 1 tab, oral, Every 6 Hours - PRN oral 1.0 6.0 h 2023 Active insulin lispro 100 unit/mL insulin pen, half-unit (insulin lispro) 3 units, subcutaneous, With Meals subcutane ous 1.0 06/20 Active Lantus Solostar U-100 Insulin (insulin glargine) 100 unit/mL (3 mL) insulin pen (Lantus Solostar U-100 Insulin (insulin glargine)) 5 Units, subcutaneous, Once A Day subcutane ous 1.0 1.0 d 04/20 Type 2 diabetes mellitus with diabetic chronic kidney disease Active leflunomide 20 mg tablet (leflunomide) 1 tab, oral, Once A Day oral 1.0 1.0 d 2022 Active levofloxacin 750 mg tablet (levofloxacin) 1, oral, Once A Day oral 1.0 1.0 d 04/18 Active Lubrifresh PM (white petrolatum-min eral oil) 83-15 % ointment (Lubrifresh PM (white petrolatum-min eral oil)) 1/4 inch, both eyes, At Bedtime 1.0 2023 Dry eye syndrome of bilateral lacrimal glands Active magnesium oxide 400 mg (241.3 mg magnesium) tablet (magnesium oxide) 1 tab, oral, Once A Day oral 1.0 1.0 d 2022 Active melatonin 1 mg tablet (melatonin) 1 tab, oral, At Bedtime oral 1.0 06/26 Active metolazone 5 mg tablet (metolazone) 1 tab, oral, Once A Day, clinical indication: edema (Resident requests to be taken in AM) oral 1.0 1.0 d 07/27 Active metoprolol tartrate 25 mg tablet (metoprolol tartrate) 1 tab, oral, Twice A Day oral 1.0 12.0 h 2023 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 4 chronic kidney disease, or unspecified chronic kidney disease Active naloxone 0.4 mg/mL solution (naloxone) 0.4mg, injection, As Needed, Administer IM in deltoid or thigh; may repeat every 3-5 x3 doses, and call 911 if no response 1.0 1.0 d 2022 Active nystatin 100,000 unit/gram powder (nystatin) 1 gm, topical, As Needed, apply to skin folds and affected areas PRN bid topical 1.0 1.0 d 2023 Active omeprazole 40 mg capsule,delaye d release(DR/EC) (omeprazole) 1 cap, oral, Twice A Day oral 1.0 12.0 h 2023 Active ondansetron 4 mg tablet,disinte grating (ondansetron) 1, oral, Every 6 Hours - PRN, Clinical Indication: Nausea/Vomiti ng oral 1.0 6.0 h 2023 Active potassium chloride 20 mEq tablet extended release (potassium chloride) 2, oral, Once A Day, 2 daily to equal 40 meq oral 1.0 1.0 d 2022 Active Refresh Liquigel (carboxymethyl cellulose sodium) 1 % drops, liquid gel (Refresh Liquigel (carboxymethyl cellulose sodium)) 1 gtt, ophthalmic (eye), Twice A Day, od/os BID 1.0 12.0 h 2023 Active Reguloid (psyllium husk) (psyllium husk) 3 gram/5.4 gram powder (Reguloid (psyllium husk) (psyllium husk)) 1 packet, oral, Once A Day oral 1.0 1.0 d 05/10 Constipation, unspecified Active ropinirole 2 mg tablet (ropinirole) 1 tab, oral, At Bedtime oral 1.0 07/27 Restless legs syndrome Active Spiriva with HandiHaler (tiotropium bromide) 18 mcg capsule, w/inhalation device (Spiriva with HandiHaler (tiotropium bromide)) 2 puff with 1 cap, inhalation, Once A Day inhalatio n 1.0 1.0 d 07/24 Chronic obstructive pulmonary disease, unspecified Active CeraVe Itch Relief (pramoxine) 1 % cream (CeraVe Itch Relief (pramoxine)) as directed, topical, As Needed, Apply to BLE daily BID PRN until healed. May use betadine if any open areas are noted topical 1.0 1.0 d 03/20 Active Dakin's Solution (sodium hypochlorite) 0.125 % solution (Dakin's Solution (sodium hypochlorite)) as directed, miscellaneous , Once A Day, Left knee: cleanse with ns and gauze, apply 1/4 packing strip dakins damped coated in gentamycin to open areas, cover with gauze, wrap with kerlix, and secure with tape 1.0 1.0 d 04/05 Active gentamicin 0.1 % ointment (gentamicin) as directed, topical, Once A Day, Left knee: cleanse with ns and gauze, apply 1/4 packing strip dakins damped coated in gentamycin to open areas, cover with gauze, wrap with kerlix, and secure with tape topical 1.0 1.0 d 04/05 Active Triad Wound Dressing (wound dressings) - paste (Triad Wound Dressing (wound dressings)) as directed, topical, As Needed, Apply to affected areas BID PRN topical 1.0 1.0 d 03/20 Active acetaminophen 500 mg tablet (acetaminophen ) 2, oral, Other, 2 tabs q 6hr prn oral 1.0 2023 Active Lantus Solostar U-100 Insulin (insulin glargine) 100 unit/mL (3 mL) insulin pen (Lantus Solostar U-100 Insulin (insulin glargine)) 4 Units, subcutaneous, Once A Day subcutane ous 1.0 1.0 d 07/24 Type 2 diabetes mellitus with diabetic chronic kidney disease Active diclofenac sodium 1 % gel (diclofenac sodium) 1 gram, topical, Three Times A Day - PRN, Apply TID prn pain to right shoulder topical 1.0 8.0 h 06/26 Active Reguloid (psyllium husk) (psyllium husk) 3 gram/5.4 gram powder (Reguloid (psyllium husk) (psyllium husk)) 1 packet, oral, Once A Day - PRN, daily as needed oral 1.0 1.0 d 05/11 Constipation, unspecified Active Fiber (with aspartame) (psyllium husk (aspartame)) 3 gram/5.8 gram powder (Fiber (with aspartame) (psyllium husk (aspartame))) 1 tbsp, oral, Once A Day - PRN oral 1.0 1.0 d 06/26 Constipation, unspecified Active Silvadene (silver sulfadiazine) 1 % cream (Silvadene (silver sulfadiazine)) as directed, topical, Every Shift, sacrum: Apply silvadene cream q shift to macerated areas on buttock and otis topical 1.0 8.0 h 06/16 Active Vaseline (white petrolatum) - gel (Vaseline (white petrolatum)) as directed, topical, Every Shift, Right back thigh: Cleanse with ns and gauze, apply vaseline to macerated area and apply loose abd pad. Do not use tape topical 1.0 8.0 h 06/16 Active Macrobid (nitrofurantoi n monohyd/m-lida t) 100 mg capsule (Macrobid (nitrofurantoi n monohyd/m-lida t)) 1, oral, Twice A Day oral 1.0 12.0 h 06/10 Active Silvadene (silver sulfadiazine) 1 % cream (Silvadene (silver sulfadiazine)) as directed, topical, Every Shift, sacrum: Apply silvadene cream q shift to macerated areas on buttock and thigh otis topical 1.0 8.0 h 2024 Active Triad Wound Dressing (wound dressings) - paste (Triad Wound Dressing (wound dressings)) as directed, topical, Every Shift, Right back thigh: Cleanse with baby oil and gauze to remove old triad, Apply thin layer of triad to red area and otis topical 1.0 8.0 h 07/06 Active nystatin 100,000 unit/gram cream (nystatin) 1 aashish, topical, Every Shift, Apply once per shift under both breasts and abdominal folds until healed topical 1.0 8.0 h 2024 Active Zoloft (sertraline) 25 mg tablet (Zoloft (sertraline)) 1 tab, oral, At Bedtime, clinical indication: increased anxiety/depre ssion oral 1.0 08/10 Active Zoloft (sertraline) 50 mg tablet (Zoloft (sertraline)) 1 tab, oral, At Bedtime, clinical indication: anxiety/depre ssion oral 1.0 2024 Active Vital Signs Date Vital Result Comment 04/11/2024 07:16 PM Temperature (8310-5) 98.3 [degF] Oxygen Saturation (83176-7) 97 % Respiratory Rate (9279-1) 20 /min Heart Rate (8867-4) 70 /min 04/11/2024 06:29 PM Blood Pressure Systolic (8480-6) 1 04 mm[Hg] Blood Pressure Diastolic (8462-4) 58 mm[Hg] 04/11/2024 12:10 PM Temperature (8310-5) 97.6 [degF] Oxygen Saturation (60910-9) 97 % Respiratory Rate (9279-1) 16 /min Heart Rate (8867-4) 63 /min Blood Pressure Systolic (8480-6) 116 mm[Hg] Blood Pressure Diastolic (8462-4) 58 mm[Hg] 04/11/2024 07:07 AM Blood Pressure Systolic (8480-6) 1 29 mm[Hg] Blood Pressure Diastolic (8462-4) 65 mm[Hg] 04/10/2024 07:37 PM Temperature (8310-5) 98.6 [degF] Oxygen Saturation (12698-8) 98 % Respiratory Rate (9279-1) 18 /min Heart Rate (8867-4) 76 /min 04/10/2024 06:49 PM Blood Pressure Systolic (8480-6) 1 18 mm[Hg] Blood Pressure Diastolic (8462-4) 70 mm[Hg] 04/10/2024 09:49 AM Temperature (8310-5) 97.2 [degF] Oxygen Saturation (84592-3) 98 % Respiratory Rate (9279-1) 18 /min Heart Rate (8867-4) 63 /min Blood Pressure Systolic (8480-6) 135 mm[Hg] Blood Pressure Diastolic (8462-4) 78 mm[Hg] 04/10/2024 09:13 AM Blood Pressure Systolic (8480-6) 1 35 mm[Hg] Blood Pressure Diastolic (8462-4) 78 mm[Hg] 04/09/2024 11:41 PM Temperature (8310-5) 98 [degF] Oxygen Saturation (79914-8) 95 % Respiratory Rate (9279-1) 16 /min Heart Rate (8867-4) 88 /min Blood Pressure Systolic (8480-6) 133 mm[Hg] Blood Pressure Diastolic (8462-4) 8 mm[Hg] 04/09/2024 10:34 PM Blood Pressure Systolic (8480-6) 1 10 mm[Hg] Blood Pressure Diastolic (8462-4) 80 mm[Hg] 04/09/2024 08:20 AM Temperature (8310-5) 97.3 [degF] Oxygen Saturation (50145-0) 92 % Respiratory Rate (9279-1) 18 /min Heart Rate (8867-4) 74 /min Blood Pressure Systolic (8480-6) 137 mm[Hg] Blood Pressure Diastolic (8462-4) 65 mm[Hg] 04/09/2024 08:19 AM Blood Pressure Systolic (8480-6) 1 37 mm[Hg] Blood Pressure Diastolic (8462-4) 65 mm[Hg] 04/08/2024 08:55 PM Temperature (8310-5) 98.1 [degF] Oxygen Saturation (65420-2) 95 % Respiratory Rate (9279-1) 18 /min Heart Rate (8867-4) 70 /min 04/08/2024 10:04 AM Temperature (8310-5) 98.4 [degF] Oxygen Saturation (13078-7) 91 % Respiratory Rate (9279-1) 20 /min Heart Rate (8867-4) 63 /min 04/07/2024 10:01 PM Temperature (8310-5) 97 [degF] Oxygen Saturation (63485-9) 95 % Respiratory Rate (9279-1) 18 /min Heart Rate (8867-4) 70 /min 04/07/2024 08:26 AM Temperature (8310-5) 97.9 [degF] Oxygen Saturation (39803-8) 96 % Respiratory Rate (9279-1) 16 /min Heart Rate (8867-4) 87 /min 04/05/2024 08:43 AM Body Weight (36929-7) 125.8 [lb_av ] Body Mass Index (63769-7) 24.57 kg/m2 04/02/2024 01:00 PM Body Weight (09281-5) 126.6 [lb_av ] Body Mass Index (43133-5) 24.72 kg/m2 03/29/2024 10:25 AM Body Weight (57395-7) 123.2 [lb_av ] Body Mass Index (00813-2) 24.06 kg/m2 03/22/2024 09:21 AM Body Weight (43214-2) 125.2 [lb_av ] Body Mass Index (94325-5) 24.45 kg/m2 03/15/2024 04:26 PM Body Weight (79024-4) 124 [lb_av] Body Mass Index (00164-9) 24.21 kg/m2 03/08/2024 10:36 AM Body Weight (94382-1) 123.4 [lb_av ] Body Mass Index (92545-1) 24.1 kg/m2 03/07/2024 04:52 PM Body Weight (15868-6) 122.2 [lb_av ] Body Mass Index (15350-7) 23.86 kg/m2 03/06/2024 08:44 PM Body Weight (31871-6) 122.4 [lb_av ] Body Mass Index (72936-9) 23.9 kg/m2 03/03/2024 12:30 PM Body Weight (11307-1) 125 [lb_av] Body Mass Index (34482-6) 24.41 kg/m2 02/29/2024 05:43 AM Body Weight (05165-2) 126 [lb_av] Body Mass Index (78850-0) 24.61 kg/m2 02/28/2024 05:33 AM Body Weight (52390-2) 126 [lb_av] Body Mass Index (75351-8) 24.61 kg/m2 02/27/2024 05:42 AM Body Weight (75326-1) 126.2 [lb_av ] Body Mass Index (33630-2) 24.64 kg/m2 02/26/2024 03:33 PM Body Weight (94462-1) 126.4 [lb_av ] Body Mass Index (72701-0) 24.68 kg/m2 02/25/2024 10:26 AM Body Weight (47483-5) 122.4 [lb_av ] Body Mass Index (09988-8) 23.9 kg/m2 02/24/2024 05:16 AM Body Weight (75238-0) 120 [lb_av] Body Mass Index (91342-4) 23.43 kg/m2 02/23/2024 12:58 PM Body Weight (24160-3) 118 [lb_av] Body Mass Index (38623-9) 23.04 kg/m2 02/23/2024 05:17 AM Body Weight (82945-2) 118.4 [lb_av ] Body Mass Index (02553-0) 23.12 kg/m2 02/09/2024 01:07 PM Body Weight (07113-8) 108.8 [lb_av ] Body Mass Index (51413-3) 21.25 kg/m2 02/02/2024 04:20 PM Body Weight (24841-8) 109.4 [lb_av ] Body Mass Index (77184-4) 21.36 kg/m2 02/01/2024 11:39 AM Body Weight (78074-0) 112 [lb_av] Body Mass Index (81247-7) 21.87 kg/m2 01/30/2024 10:55 AM Body Weight (81336-6) 112.4 [lb_av ] Body Mass Index (64659-7) 21.95 kg/m2 01/29/2024 12:08 PM Body Weight (90354-6) 116.2 [lb_av ] Body Mass Index (57146-2) 22.69 kg/m2 01/28/2024 04:18 PM Body Weight (41114-5) 116.4 [lb_av ] Body Mass Index (10466-8) 22.73 kg/m2 01/26/2024 01:16 PM Body Weight (39299-0) 116 [lb_av] Body Mass Index (53264-7) 22.65 kg/m2 09/01/2018 09:52 AM Body Height (8302-2) 60 [in_us] 04/12/2024 09:37 AM Blood Pressure Systolic (8480-6) 1 22 mm[Hg] Blood Pressure Diastolic (8462-4) 68 mm[Hg] 04/12/2024 07:56 PM Temperature (8310-5) 98.2 [degF] Oxygen Saturation (41678-9) 100 % Respiratory Rate (9279-1) 18 /min Heart Rate (8867-4) 65 /min 04/12/2024 06:25 PM Blood Pressure Systolic (8480-6) 1 13 mm[Hg] Blood Pressure Diastolic (8462-4) 64 mm[Hg] 04/14/2024 05:37 PM Temperature (8310-5) 98.6 [degF] Oxygen Saturation (98695-2) 99 % Respiratory Rate (9279-1) 17 /min Heart Rate (8867-4) 67 /min Blood Pressure Systolic (8480-6) 140 mm[Hg] Blood Pressure Diastolic (8462-4) 78 mm[Hg] 04/14/2024 10:45 AM Blood Pressure Systolic (8480-6) 1 40 mm[Hg] Blood Pressure Diastolic (8462-4) 78 mm[Hg] 04/13/2024 07:30 PM Temperature (8310-5) 98.4 [degF] Oxygen Saturation (24744-0) 96 % Respiratory Rate (9279-1) 18 /min Heart Rate (8867-4) 81 /min 04/13/2024 06:31 PM Blood Pressure Systolic (8480-6) 1 17 mm[Hg] Blood Pressure Diastolic (8462-4) 76 mm[Hg] 04/13/2024 09:24 AM Temperature (8310-5) 97.9 [degF] Oxygen Saturation (78296-6) 95 % Respiratory Rate (9279-1) 16 /min Heart Rate (8867-4) 72 /min Blood Pressure Systolic (8480-6) 124 mm[Hg] Blood Pressure Diastolic (8462-4) 80 mm[Hg] 04/13/2024 08:12 AM Blood Pressure Systolic (8480-6) 1 24 mm[Hg] Blood Pressure Diastolic (8462-4) 69 mm[Hg] 04/15/2024 02:24 PM Temperature (8310-5) 98.5 [degF] Oxygen Saturation (48489-7) 93 % Respiratory Rate (9279-1) 17 /min Heart Rate (8867-4) 64 /min Blood Pressure Systolic (8480-6) 117 mm[Hg] Blood Pressure Diastolic (8462-4) 63 mm[Hg] 04/15/2024 12:37 PM Blood Pressure Systolic (8480-6) 1 17 mm[Hg] Blood Pressure Diastolic (8462-4) 63 mm[Hg] 04/15/2024 02:39 AM Temperature (8310-5) 98 [degF] Oxygen Saturation (71171-5) 95 % Respiratory Rate (9279-1) 16 /min Heart Rate (8867-4) 80 /min Blood Pressure Systolic (8480-6) 126 mm[Hg] Blood Pressure Diastolic (8462-4) 84 mm[Hg] 04/14/2024 11:10 PM Blood Pressure Systolic (8480-6) 1 32 mm[Hg] Blood Pressure Diastolic (8462-4) 80 mm[Hg] 04/16/2024 11:26 AM Blood Pressure Systolic (8480-6) 1 43 mm[Hg] Blood Pressure Diastolic (8462-4) 78 mm[Hg] 04/15/2024 11:02 PM Temperature (8310-5) 97 [degF] Oxygen Saturation (32919-0) 95 % Respiratory Rate (9279-1) 18 /min 04/15/2024 10:56 PM Blood Pressure Systolic (8480-6) 1 32 mm[Hg] Blood Pressure Diastolic (8462-4) 84 mm[Hg] 04/16/2024 11:47 PM Temperature (8310-5) 97 [degF] Oxygen Saturation (87388-9) 95 % Respiratory Rate (9279-1) 18 /min Heart Rate (8867-4) 80 /min Blood Pressure Systolic (8480-6) 130 mm[Hg] Blood Pressure Diastolic (8462-4) 84 mm[Hg] 04/16/2024 09:07 PM Blood Pressure Systolic (8480-6) 1 36 mm[Hg] Blood Pressure Diastolic (8462-4) 84 mm[Hg] 04/16/2024 06:04 PM Temperature (8310-5) 98.2 [degF] Oxygen Saturation (69118-9) 98 % Respiratory Rate (9279-1) 20 /min Heart Rate (8867-4) 80 /min 04/18/2024 07:45 AM Blood Pressure Systolic (8480-6) 1 17 mm[Hg] Blood Pressure Diastolic (8462-4) 85 mm[Hg] 04/17/2024 10:05 PM Temperature (8310-5) 97.9 [degF] Oxygen Saturation (36427-6) 96 % Respiratory Rate (9279-1) 18 /min Heart Rate (8867-4) 81 /min Blood Pressure Systolic (8480-6) 145 mm[Hg] Blood Pressure Diastolic (8462-4) 101 mm[Hg] 04/17/2024 04:13 PM Temperature (8310-5) 98 [degF] Oxygen Saturation (19406-6) 94 % Respiratory Rate (9279-1) 18 /min Heart Rate (8867-4) 69 /min Blood Pressure Systolic (8480-6) 119 mm[Hg] Blood Pressure Diastolic (8462-4) 65 mm[Hg] 04/17/2024 07:42 AM Blood Pressure Systolic (8480-6) 1 25 mm[Hg] Blood Pressure Diastolic (8462-4) 72 mm[Hg] 04/19/2024 07:47 AM Blood Pressure Systolic (8480-6) 1 39 mm[Hg] Blood Pressure Diastolic (8462-4) 79 mm[Hg] 04/18/2024 07:18 PM Temperature (8310-5) 97.7 [degF] Oxygen Saturation (82884-5) 97 % Respiratory Rate (9279-1) 18 /min Heart Rate (8867-4) 63 /min 04/18/2024 06:39 PM Blood Pressure Systolic (8480-6) 1 22 mm[Hg] Blood Pressure Diastolic (8462-4) 76 mm[Hg] 04/18/2024 12:01 PM Temperature (8310-5) 97.8 [degF] Oxygen Saturation (76303-8) 98 % Respiratory Rate (9279-1) 19 /min Heart Rate (8867-4) 81 /min Blood Pressure Systolic (8480-6) 109 mm[Hg] Blood Pressure Diastolic (8462-4) 65 mm[Hg] 04/20/2024 08:21 AM Temperature (8310-5) 97.9 [degF] Oxygen Saturation (84490-9) 94 % Respiratory Rate (9279-1) 16 /min Heart Rate (8867-4) 69 /min Blood Pressure Systolic (8480-6) 137 mm[Hg] Blood Pressure Diastolic (8462-4) 79 mm[Hg] 04/19/2024 08:46 PM Temperature (8310-5) 97.2 [degF] Oxygen Saturation (96009-0) 99 % Respiratory Rate (9279-1) 18 /min Heart Rate (8867-4) 65 /min 04/19/2024 07:16 PM Blood Pressure Systolic (8480-6) 1 13 mm[Hg] Blood Pressure Diastolic (8462-4) 45 mm[Hg] 04/19/2024 11:07 AM Temperature (8310-5) 98.6 [degF] Oxygen Saturation (82341-1) 96 % Respiratory Rate (9279-1) 17 /min Heart Rate (8867-4) 80 /min 04/20/2024 08:34 PM Temperature (8310-5) 99 [degF] Oxygen Saturation (40938-6) 99 % Respiratory Rate (9279-1) 16 /min Heart Rate (8867-4) 73 /min 04/20/2024 06:42 PM Blood Pressure Systolic (8480-6) 9 7 mm[Hg] Blood Pressure Diastolic (8462-4) 52 mm[Hg] 04/21/2024 09:23 PM Blood Pressure Systolic (8480-6) 1 32 mm[Hg] Blood Pressure Diastolic (8462-4) 84 mm[Hg] 04/21/2024 06:34 PM Temperature (8310-5) 98.5 [degF] Oxygen Saturation (09362-9) 97 % Respiratory Rate (9279-1) 17 /min Heart Rate (8867-4) 78 /min Blood Pressure Systolic (8480-6) 117 mm[Hg] Blood Pressure Diastolic (8462-4) 65 mm[Hg] 04/21/2024 11:31 AM Body Weight (42247-2) 126 [lb_av] Body Mass Index (75493-0) 24.61 kg/m2 04/21/2024 10:01 AM Blood Pressure Systolic (8480-6) 1 17 mm[Hg] Blood Pressure Diastolic (8462-4) 65 mm[Hg] 04/22/2024 10:23 AM Temperature (8310-5) 97 [degF] Oxygen Saturation (88162-6) 97 % Respiratory Rate (9279-1) 20 /min Heart Rate (8867-4) 58 /min 04/22/2024 07:42 AM Blood Pressure Systolic (8480-6) 1 15 mm[Hg] Blood Pressure Diastolic (8462-4) 63 mm[Hg] 04/22/2024 12:22 AM Temperature (8310-5) 98 [degF] Oxygen Saturation (33495-5) 96 % Respiratory Rate (9279-1) 16 /min Heart Rate (8867-4) 80 /min 04/22/2024 07:12 PM Temperature (8310-5) 98.1 [degF] Oxygen Saturation (50394-9) 98 % Respiratory Rate (9279-1) 19 /min Heart Rate (8867-4) 67 /min Blood Pressure Systolic (8480-6) 125 mm[Hg] Blood Pressure Diastolic (8462-4) 66 mm[Hg] 04/23/2024 08:31 PM Blood Pressure Systolic (8480-6) 1 45 mm[Hg] Blood Pressure Diastolic (8462-4) 72 mm[Hg] 04/23/2024 08:16 PM Temperature (8310-5) 98.8 [degF] Oxygen Saturation (98820-6) 99 % Respiratory Rate (9279-1) 21 /min Heart Rate (8867-4) 67 /min Blood Pressure Systolic (8480-6) 145 mm[Hg] Blood Pressure Diastolic (8462-4) 72 mm[Hg] 04/23/2024 08:51 AM Temperature (8310-5) 97.4 [degF] Oxygen Saturation (44217-6) 99 % Respiratory Rate (9279-1) 16 /min Heart Rate (8867-4) 60 /min Blood Pressure Systolic (8480-6) 129 mm[Hg] Blood Pressure Diastolic (8462-4) 71 mm[Hg] 04/23/2024 08:50 AM Blood Pressure Systolic (8480-6) 1 29 mm[Hg] Blood Pressure Diastolic (8462-4) 71 mm[Hg] 04/24/2024 12:07 PM Temperature (8310-5) 97.8 [degF] Oxygen Saturation (46763-0) 92 % Respiratory Rate (9279-1) 20 /min Heart Rate (8867-4) 68 /min Blood Pressure Systolic (8480-6) 125 mm[Hg] Blood Pressure Diastolic (8462-4) 62 mm[Hg] 04/24/2024 07:41 AM Blood Pressure Systolic (8480-6) 1 26 mm[Hg] Blood Pressure Diastolic (8462-4) 65 mm[Hg] 04/25/2024 08:53 AM Temperature (8310-5) 97.7 [degF] Oxygen Saturation (07452-6) 96 % Respiratory Rate (9279-1) 16 /min Heart Rate (8867-4) 72 /min Blood Pressure Systolic (8480-6) 137 mm[Hg] Blood Pressure Diastolic (8462-4) 75 mm[Hg] 04/24/2024 07:36 PM Temperature (8310-5) 97.4 [degF] Oxygen Saturation (30796-0) 95 % Respiratory Rate (9279-1) 18 /min Heart Rate (8867-4) 60 /min 04/24/2024 06:47 PM Blood Pressure Systolic (8480-6) 1 10 mm[Hg] Blood Pressure Diastolic (8462-4) 66 mm[Hg] 04/26/2024 08:32 AM Temperature (8310-5) 97.6 [degF] Oxygen Saturation (76721-1) 92 % Respiratory Rate (9279-1) 16 /min Heart Rate (8867-4) 59 /min Blood Pressure Systolic (8480-6) 102 mm[Hg] Blood Pressure Diastolic (8462-4) 58 mm[Hg] 04/26/2024 07:34 AM Blood Pressure Systolic (8480-6) 1 32 mm[Hg] Blood Pressure Diastolic (8462-4) 65 mm[Hg] 04/25/2024 07:11 PM Temperature (8310-5) 98.2 [degF] Oxygen Saturation (27005-8) 95 % Respiratory Rate (9279-1) 18 /min Heart Rate (8867-4) 76 /min 04/25/2024 06:32 PM Blood Pressure Systolic (8480-6) 1 40 mm[Hg] Blood Pressure Diastolic (8462-4) 80 mm[Hg] 04/26/2024 06:45 PM Temperature (8310-5) 98.4 [degF] Oxygen Saturation (62432-5) 99 % Respiratory Rate (9279-1) 18 /min Heart Rate (8867-4) 63 /min 04/26/2024 06:35 PM Blood Pressure Systolic (8480-6) 1 18 mm[Hg] Blood Pressure Diastolic (8462-4) 60 mm[Hg] 04/27/2024 06:44 PM Temperature (8310-5) 98.1 [degF] Oxygen Saturation (04666-6) 97 % Respiratory Rate (9279-1) 18 /min Heart Rate (8867-4) 80 /min 04/27/2024 06:32 PM Blood Pressure Systolic (8480-6) 1 26 mm[Hg] Blood Pressure Diastolic (8462-4) 64 mm[Hg] 04/27/2024 12:46 PM Temperature (8310-5) 97.4 [degF] Oxygen Saturation (49305-0) 98 % Respiratory Rate (9279-1) 20 /min Heart Rate (8867-4) 77 /min Blood Pressure Systolic (8480-6) 135 mm[Hg] Blood Pressure Diastolic (8462-4) 76 mm[Hg] 04/27/2024 07:32 AM Blood Pressure Systolic (8480-6) 1 35 mm[Hg] Blood Pressure Diastolic (8462-4) 76 mm[Hg] 04/28/2024 09:57 AM Temperature (8310-5) 98.2 [degF] Oxygen Saturation (39520-7) 95 % Respiratory Rate (9279-1) 17 /min Heart Rate (8867-4) 66 /min 04/28/2024 09:56 AM Blood Pressure Systolic (8480-6) 1 27 mm[Hg] Blood Pressure Diastolic (8462-4) 97 mm[Hg] 04/29/2024 09:46 AM Temperature (8310-5) 98.6 [degF] Oxygen Saturation (09238-5) 98 % Respiratory Rate (9279-1) 18 /min Heart Rate (8867-4) 66 /min Blood Pressure Systolic (8480-6) 136 mm[Hg] Blood Pressure Diastolic (8462-4) 69 mm[Hg] 04/29/2024 09:44 AM Blood Pressure Systolic (8480-6) 1 27 mm[Hg] Blood Pressure Diastolic (8462-4) 58 mm[Hg] 04/28/2024 07:34 PM Temperature (8310-5) 98.3 [degF] Oxygen Saturation (73486-6) 97 % Respiratory Rate (9279-1) 23 /min Heart Rate (8867-4) 67 /min 04/28/2024 07:06 PM Blood Pressure Systolic (8480-6) 1 20 mm[Hg] Blood Pressure Diastolic (8462-4) 75 mm[Hg] 04/29/2024 07:24 PM Temperature (8310-5) 98 [degF] Oxygen Saturation (36523-4) 93 % Respiratory Rate (9279-1) 20 /min Heart Rate (8867-4) 69 /min Blood Pressure Systolic (8480-6) 136 mm[Hg] Blood Pressure Diastolic (8462-4) 75 mm[Hg] 04/29/2024 07:14 PM Blood Pressure Systolic (8480-6) 1 37 mm[Hg] Blood Pressure Diastolic (8462-4) 63 mm[Hg] 04/30/2024 10:21 PM Temperature (8310-5) 98 [degF] Oxygen Saturation (33663-1) 96 % Respiratory Rate (9279-1) 16 /min Heart Rate (8867-4) 70 /min 04/30/2024 09:42 PM Blood Pressure Systolic (8480-6) 1 30 mm[Hg] Blood Pressure Diastolic (8462-4) 78 mm[Hg] 04/30/2024 06:27 PM Temperature (8310-5) 97.3 [degF] Oxygen Saturation (63546-2) 91 % Respiratory Rate (9279-1) 20 /min Heart Rate (8867-4) 73 /min Blood Pressure Systolic (8480-6) 150 mm[Hg] Blood Pressure Diastolic (8462-4) 86 mm[Hg] 04/30/2024 08:39 AM Blood Pressure Systolic (8480-6) 1 50 mm[Hg] Blood Pressure Diastolic (8462-4) 86 mm[Hg] 05/01/2024 10:44 AM Temperature (8310-5) 98.7 [degF] Oxygen Saturation (76220-8) 99 % Respiratory Rate (9279-1) 16 /min Heart Rate (8867-4) 51 /min Blood Pressure Systolic (8480-6) 105 mm[Hg] Blood Pressure Diastolic (8462-4) 59 mm[Hg] 05/01/2024 07:27 AM Blood Pressure Systolic (8480-6) 1 26 mm[Hg] Blood Pressure Diastolic (8462-4) 70 mm[Hg] 05/02/2024 08:49 AM Temperature (8310-5) 97.3 [degF] Oxygen Saturation (29197-7) 98 % Respiratory Rate (9279-1) 16 /min Heart Rate (8867-4) 64 /min Blood Pressure Systolic (8480-6) 127 mm[Hg] Blood Pressure Diastolic (8462-4) 79 mm[Hg] 05/02/2024 07:14 AM Blood Pressure Systolic (8480-6) 1 05 mm[Hg] Blood Pressure Diastolic (8462-4) 66 mm[Hg] 05/01/2024 07:57 PM Temperature (8310-5) 97 [degF] Oxygen Saturation (64653-4) 98 % Respiratory Rate (9279-1) 18 /min Heart Rate (8867-4) 60 /min 05/01/2024 07:03 PM Blood Pressure Systolic (8480-6) 9 5 mm[Hg] Blood Pressure Diastolic (8462-4) 65 mm[Hg] 05/03/2024 02:25 PM Temperature (8310-5) 97.4 [degF] Oxygen Saturation (38064-9) 96 % Respiratory Rate (9279-1) 20 /min Heart Rate (8867-4) 66 /min Blood Pressure Systolic (8480-6) 104 mm[Hg] Blood Pressure Diastolic (8462-4) 64 mm[Hg] 05/03/2024 12:34 PM Body Weight (36551-0) 130.3 [lb_av ] Body Mass Index (77789-8) 25.44 kg/m2 05/03/2024 07:37 AM Blood Pressure Systolic (8480-6) 1 26 mm[Hg] Blood Pressure Diastolic (8462-4) 65 mm[Hg] 05/02/2024 07:21 PM Temperature (8310-5) 97.2 [degF] Oxygen Saturation (57126-8) 92 % Respiratory Rate (9279-1) 18 /min Heart Rate (8867-4) 68 /min 05/02/2024 06:58 PM Blood Pressure Systolic (8480-6) 1 03 mm[Hg] Blood Pressure Diastolic (8462-4) 62 mm[Hg] 05/04/2024 07:52 AM Temperature (8310-5) 97.8 [degF] Oxygen Saturation (32589-6) 94 % Respiratory Rate (9279-1) 20 /min Heart Rate (8867-4) 67 /min Blood Pressure Systolic (8480-6) 138 mm[Hg] Blood Pressure Diastolic (8462-4) 80 mm[Hg] 05/03/2024 06:53 PM Temperature (8310-5) 97.5 [degF] Oxygen Saturation (85005-9) 97 % Respiratory Rate (9279-1) 18 /min Heart Rate (8867-4) 64 /min 05/03/2024 06:39 PM Blood Pressure Systolic (8480-6) 1 08 mm[Hg] Blood Pressure Diastolic (8462-4) 64 mm[Hg] 05/05/2024 09:10 AM Blood Pressure Systolic (8480-6) 1 53 mm[Hg] Blood Pressure Diastolic (8462-4) 84 mm[Hg] 05/05/2024 09:11 AM Temperature (8310-5) 97.5 [degF] Oxygen Saturation (38543-2) 94 % Respiratory Rate (9279-1) 18 /min Heart Rate (8867-4) 61 /min 05/04/2024 08:46 PM Temperature (8310-5) 97.6 [degF] Oxygen Saturation (91660-9) 96 % Respiratory Rate (9279-1) 20 /min Heart Rate (8867-4) 68 /min Blood Pressure Systolic (8480-6) 132 mm[Hg] Blood Pressure Diastolic (8462-4) 62 mm[Hg] 05/04/2024 08:27 PM Blood Pressure Systolic (8480-6) 1 30 mm[Hg] Blood Pressure Diastolic (8462-4) 70 mm[Hg] 05/06/2024 08:52 AM Temperature (8310-5) 97.8 [degF] Oxygen Saturation (64068-9) 100 % Respiratory Rate (9279-1) 20 /min Heart Rate (8867-4) 50 /min 05/06/2024 07:34 AM Blood Pressure Systolic (8480-6) 1 50 mm[Hg] Blood Pressure Diastolic (8462-4) 89 mm[Hg] 05/05/2024 09:19 PM Temperature (8310-5) 97.9 [degF] Respiratory Rate (9279-1) 18 /min Heart Rate (8867-4) 73 /min Blood Pressure Systolic (8480-6) 135 mm[Hg] Blood Pressure Diastolic (8462-4) 67 mm[Hg] 05/06/2024 08:24 PM Temperature (8310-5) 97.8 [degF] Oxygen Saturation (77908-3) 97 % Respiratory Rate (9279-1) 20 /min Heart Rate (8867-4) 60 /min Blood Pressure Systolic (8480-6) 125 mm[Hg] Blood Pressure Diastolic (8462-4) 58 mm[Hg] 05/06/2024 08:07 PM Blood Pressure Systolic (8480-6) 1 25 mm[Hg] Blood Pressure Diastolic (8462-4) 58 mm[Hg] 05/07/2024 10:45 PM Temperature (8310-5) 98.3 [degF] Respiratory Rate (9279-1) 23 /min Heart Rate (8867-4) 73 /min 05/07/2024 07:55 PM Blood Pressure Systolic (8480-6) 1 38 mm[Hg] Blood Pressure Diastolic (8462-4) 83 mm[Hg] 05/07/2024 09:10 AM Temperature (8310-5) 97 [degF] Oxygen Saturation (63492-9) 93 % Respiratory Rate (9279-1) 16 /min Heart Rate (8867-4) 63 /min 05/07/2024 09:09 AM Blood Pressure Systolic (8480-6) 1 02 mm[Hg] Blood Pressure Diastolic (8462-4) 57 mm[Hg] 05/08/2024 10:14 AM Temperature (8310-5) 98.1 [degF] Oxygen Saturation (60789-2) 94 % Respiratory Rate (9279-1) 16 /min Heart Rate (8867-4) 74 /min Blood Pressure Systolic (8480-6) 132 mm[Hg] Blood Pressure Diastolic (8462-4) 65 mm[Hg] 05/08/2024 07:27 AM Blood Pressure Systolic (8480-6) 1 11 mm[Hg] Blood Pressure Diastolic (8462-4) 70 mm[Hg] 05/09/2024 04:03 PM Temperature (8310-5) 98.4 [degF] Oxygen Saturation (25238-9) 98 % Respiratory Rate (9279-1) 18 /min Heart Rate (8867-4) 71 /min Blood Pressure Systolic (8480-6) 140 mm[Hg] Blood Pressure Diastolic (8462-4) 73 mm[Hg] 05/09/2024 07:19 PM Temperature (8310-5) 97 [degF] Oxygen Saturation (56635-4) 99 % Respiratory Rate (9279-1) 17 /min Heart Rate (8867-4) 64 /min 05/08/2024 07:46 PM Temperature (8310-5) 97.6 [degF] Oxygen Saturation (12578-5) 98 % Respiratory Rate (9279-1) 19 /min Heart Rate (8867-4) 62 /min Blood Pressure Systolic (8480-6) 113 mm[Hg] Blood Pressure Diastolic (8462-4) 72 mm[Hg] 05/09/2024 07:42 AM Blood Pressure Systolic (8480-6) 1 40 mm[Hg] Blood Pressure Diastolic (8462-4) 73 mm[Hg] 05/08/2024 07:11 PM Blood Pressure Systolic (8480-6) 1 13 mm[Hg] Blood Pressure Diastolic (8462-4) 72 mm[Hg] 05/09/2024 06:37 PM Blood Pressure Systolic (8480-6) 1 26 mm[Hg] Blood Pressure Diastolic (8462-4) 72 mm[Hg] 05/10/2024 09:42 AM Temperature (8310-5) 98 [degF] Oxygen Saturation (28748-9) 97 % Respiratory Rate (9279-1) 15 /min Heart Rate (8867-4) 67 /min Blood Pressure Systolic (8480-6) 122 mm[Hg] Blood Pressure Diastolic (8462-4) 62 mm[Hg] 05/10/2024 07:00 PM Blood Pressure Systolic (8480-6) 1 20 mm[Hg] Blood Pressure Diastolic (8462-4) 60 mm[Hg] 05/10/2024 07:33 AM Blood Pressure Systolic (8480-6) 1 32 mm[Hg] Blood Pressure Diastolic (8462-4) 72 mm[Hg] 05/11/2024 06:36 PM Blood Pressure Systolic (8480-6) 9 8 mm[Hg] Blood Pressure Diastolic (8462-4) 56 mm[Hg] 05/11/2024 07:54 AM Temperature (8310-5) 98.6 [degF] Oxygen Saturation (05498-6) 94 % Respiratory Rate (9279-1) 20 /min Heart Rate (8867-4) 84 /min Blood Pressure Systolic (8480-6) 165 mm[Hg] Blood Pressure Diastolic (8462-4) 77 mm[Hg] 05/10/2024 08:48 PM Temperature (8310-5) 98.1 [degF] Oxygen Saturation (71357-6) 99 % Respiratory Rate (9279-1) 16 /min Heart Rate (8867-4) 70 /min 05/12/2024 05:26 PM Temperature (8310-5) 98.2 [degF] Oxygen Saturation (38338-7) 98 % Respiratory Rate (9279-1) 16 /min Heart Rate (8867-4) 62 /min Blood Pressure Systolic (8480-6) 132 mm[Hg] Blood Pressure Diastolic (8462-4) 84 mm[Hg] 05/11/2024 07:16 PM Temperature (8310-5) 97.9 [degF] Oxygen Saturation (77495-6) 97 % Respiratory Rate (9279-1) 19 /min Heart Rate (8867-4) 80 /min 05/12/2024 11:00 PM Temperature (8310-5) 98.1 [degF] Oxygen Saturation (37150-2) 97 % Respiratory Rate (9279-1) 18 /min Heart Rate (8867-4) 63 /min Blood Pressure Systolic (8480-6) 128 mm[Hg] Blood Pressure Diastolic (8462-4) 75 mm[Hg] 05/12/2024 07:23 PM Blood Pressure Systolic (8480-6) 1 28 mm[Hg] Blood Pressure Diastolic (8462-4) 75 mm[Hg] 05/13/2024 09:38 AM Temperature (8310-5) 97.4 [degF] Oxygen Saturation (09016-8) 97 % Respiratory Rate (9279-1) 19 /min Heart Rate (8867-4) 60 /min Blood Pressure Systolic (8480-6) 147 mm[Hg] Blood Pressure Diastolic (8462-4) 77 mm[Hg] 05/13/2024 08:00 AM Blood Pressure Systolic (8480-6) 1 47 mm[Hg] Blood Pressure Diastolic (8462-4) 77 mm[Hg] 05/13/2024 09:44 PM Temperature (8310-5) 97.6 [degF] Oxygen Saturation (65291-5) 99 % Respiratory Rate (9279-1) 20 /min Heart Rate (8867-4) 61 /min Blood Pressure Systolic (8480-6) 149 mm[Hg] Blood Pressure Diastolic (8462-4) 80 mm[Hg] 05/13/2024 07:56 PM Blood Pressure Systolic (8480-6) 1 49 mm[Hg] Blood Pressure Diastolic (8462-4) 80 mm[Hg] 05/14/2024 08:18 PM Blood Pressure Systolic (8480-6) 1 40 mm[Hg] Blood Pressure Diastolic (8462-4) 81 mm[Hg] 05/14/2024 10:46 PM Temperature (8310-5) 97.9 [degF] Oxygen Saturation (88718-0) 99 % Respiratory Rate (9279-1) 18 /min Heart Rate (8867-4) 61 /min Blood Pressure Systolic (8480-6) 140 mm[Hg] Blood Pressure Diastolic (8462-4) 81 mm[Hg] 05/14/2024 01:22 PM Temperature (8310-5) 98 [degF] Respiratory Rate (9279-1) 18 /min Heart Rate (8867-4) 96 /min Blood Pressure Systolic (8480-6) 171 mm[Hg] Blood Pressure Diastolic (8462-4) 78 mm[Hg] 05/14/2024 01:25 PM Oxygen Saturation (45661-4) 97 % 05/14/2024 07:42 AM Blood Pressure Systolic (8480-6) 1 71 mm[Hg] Blood Pressure Diastolic (8462-4) 78 mm[Hg] 05/15/2024 08:43 AM Temperature (8310-5) 97.6 [degF] Oxygen Saturation (87619-2) 99 % Respiratory Rate (9279-1) 15 /min Heart Rate (8867-4) 71 /min Blood Pressure Systolic (8480-6) 142 mm[Hg] Blood Pressure Diastolic (8462-4) 81 mm[Hg] 05/15/2024 07:18 AM Blood Pressure Systolic (8480-6) 1 42 mm[Hg] Blood Pressure Diastolic (8462-4) 81 mm[Hg] 05/16/2024 06:42 PM Temperature (8310-5) 97.9 [degF] Oxygen Saturation (37817-0) 97 % Respiratory Rate (9279-1) 20 /min Heart Rate (8867-4) 68 /min 05/16/2024 06:34 PM Blood Pressure Systolic (8480-6) 1 46 mm[Hg] Blood Pressure Diastolic (8462-4) 74 mm[Hg] 05/16/2024 08:19 AM Temperature (8310-5) 98.7 [degF] Oxygen Saturation (78667-5) 93 % Respiratory Rate (9279-1) 18 /min Heart Rate (8867-4) 60 /min 05/16/2024 07:22 AM Blood Pressure Systolic (8480-6) 1 65 mm[Hg] Blood Pressure Diastolic (8462-4) 76 mm[Hg] 05/15/2024 07:13 PM Temperature (8310-5) 98 [degF] Oxygen Saturation (57611-9) 99 % Respiratory Rate (9279-1) 15 /min Heart Rate (8867-4) 66 /min 05/15/2024 06:52 PM Blood Pressure Systolic (8480-6) 1 26 mm[Hg] Blood Pressure Diastolic (8462-4) 82 mm[Hg] 05/17/2024 09:37 AM Temperature (8310-5) 96.9 [degF] Oxygen Saturation (19827-9) 100 % Respiratory Rate (9279-1) 16 /min Heart Rate (8867-4) 52 /min Blood Pressure Systolic (8480-6) 136 mm[Hg] Blood Pressure Diastolic (8462-4) 87 mm[Hg] 05/17/2024 07:28 PM Temperature (8310-5) 98.1 [degF] Oxygen Saturation (81410-2) 94 % Respiratory Rate (9279-1) 15 /min Heart Rate (8867-4) 73 /min 05/17/2024 06:44 PM Blood Pressure Systolic (8480-6) 1 20 mm[Hg] Blood Pressure Diastolic (8462-4) 70 mm[Hg] 05/18/2024 09:10 AM Temperature (8310-5) 98.3 [degF] Oxygen Saturation (06280-0) 95 % Respiratory Rate (9279-1) 20 /min Heart Rate (8867-4) 80 /min Blood Pressure Systolic (8480-6) 139 mm[Hg] Blood Pressure Diastolic (8462-4) 82 mm[Hg] 05/18/2024 09:09 AM Blood Pressure Systolic (8480-6) 1 35 mm[Hg] Blood Pressure Diastolic (8462-4) 90 mm[Hg] 05/19/2024 09:39 PM Temperature (8310-5) 98.2 [degF] Oxygen Saturation (04249-6) 97 % Respiratory Rate (9279-1) 20 /min Heart Rate (8867-4) 61 /min Blood Pressure Systolic (8480-6) 143 mm[Hg] Blood Pressure Diastolic (8462-4) 65 mm[Hg] 05/19/2024 07:58 PM Blood Pressure Systolic (8480-6) 1 43 mm[Hg] Blood Pressure Diastolic (8462-4) 65 mm[Hg] 05/19/2024 08:59 AM Temperature (8310-5) 99 [degF] Oxygen Saturation (07448-0) 97 % Respiratory Rate (9279-1) 18 /min Heart Rate (8867-4) 63 /min Blood Pressure Systolic (8480-6) 156 mm[Hg] Blood Pressure Diastolic (8462-4) 74 mm[Hg] 05/19/2024 08:41 AM Blood Pressure Systolic (8480-6) 1 56 mm[Hg] Blood Pressure Diastolic (8462-4) 74 mm[Hg] 05/18/2024 08:10 PM Temperature (8310-5) 98.1 [degF] Oxygen Saturation (38261-8) 92 % Respiratory Rate (9279-1) 15 /min Heart Rate (8867-4) 66 /min Blood Pressure Systolic (8480-6) 144 mm[Hg] Blood Pressure Diastolic (8462-4) 68 mm[Hg] 05/18/2024 08:09 PM Blood Pressure Systolic (8480-6) 1 44 mm[Hg] Blood Pressure Diastolic (8462-4) 68 mm[Hg] 05/20/2024 08:43 PM Temperature (8310-5) 97.9 [degF] Oxygen Saturation (56121-6) 95 % Respiratory Rate (9279-1) 20 /min Heart Rate (8867-4) 62 /min Blood Pressure Systolic (8480-6) 144 mm[Hg] Blood Pressure Diastolic (8462-4) 86 mm[Hg] 05/20/2024 07:45 PM Blood Pressure Systolic (8480-6) 1 44 mm[Hg] Blood Pressure Diastolic (8462-4) 86 mm[Hg] 05/20/2024 09:47 AM Temperature (8310-5) 97.2 [degF] Oxygen Saturation (36597-6) 94 % Respiratory Rate (9279-1) 18 /min Heart Rate (8867-4) 62 /min Blood Pressure Systolic (8480-6) 162 mm[Hg] Blood Pressure Diastolic (8462-4) 74 mm[Hg] 05/21/2024 09:33 AM Temperature (8310-5) 97 [degF] Oxygen Saturation (44249-2) 96 % Respiratory Rate (9279-1) 18 /min Heart Rate (8867-4) 69 /min 05/21/2024 08:14 AM Blood Pressure Systolic (8480-6) 1 63 mm[Hg] Blood Pressure Diastolic (8462-4) 93 mm[Hg] 05/21/2024 07:44 PM Temperature (8310-5) 97.9 [degF] Oxygen Saturation (89125-1) 96 % Respiratory Rate (9279-1) 19 /min Heart Rate (8867-4) 64 /min Blood Pressure Systolic (8480-6) 146 mm[Hg] Blood Pressure Diastolic (8462-4) 82 mm[Hg] 05/21/2024 07:34 PM Blood Pressure Systolic (8480-6) 1 46 mm[Hg] Blood Pressure Diastolic (8462-4) 82 mm[Hg] 05/22/2024 08:06 PM Temperature (8310-5) 97.1 [degF] Oxygen Saturation (46321-0) 97 % Respiratory Rate (9279-1) 23 /min Heart Rate (8867-4) 68 /min Blood Pressure Systolic (8480-6) 157 mm[Hg] Blood Pressure Diastolic (8462-4) 70 mm[Hg] 05/22/2024 07:34 PM Blood Pressure Systolic (8480-6) 1 57 mm[Hg] Blood Pressure Diastolic (8462-4) 70 mm[Hg] 05/22/2024 08:02 AM Temperature (8310-5) 98.7 [degF] Oxygen Saturation (28386-6) 90 % Respiratory Rate (9279-1) 19 /min Heart Rate (8867-4) 67 /min Blood Pressure Systolic (8480-6) 153 mm[Hg] Blood Pressure Diastolic (8462-4) 79 mm[Hg] 05/22/2024 07:42 AM Blood Pressure Systolic (8480-6) 1 57 mm[Hg] Blood Pressure Diastolic (8462-4) 82 mm[Hg] 05/23/2024 04:09 PM Temperature (8310-5) 97.5 [degF] Oxygen Saturation (97363-5) 99 % Respiratory Rate (9279-1) 15 /min Heart Rate (8867-4) 69 /min 05/23/2024 07:14 AM Blood Pressure Systolic (8480-6) 1 57 mm[Hg] Blood Pressure Diastolic (8462-4) 89 mm[Hg] 05/24/2024 08:30 AM Temperature (8310-5) 97.8 [degF] Oxygen Saturation (51324-6) 98 % Respiratory Rate (9279-1) 17 /min Heart Rate (8867-4) 54 /min Blood Pressure Systolic (8480-6) 127 mm[Hg] Blood Pressure Diastolic (8462-4) 52 mm[Hg] 05/24/2024 07:36 AM Blood Pressure Systolic (8480-6) 1 40 mm[Hg] Blood Pressure Diastolic (8462-4) 78 mm[Hg] 05/23/2024 08:21 PM Temperature (8310-5) 98 [degF] Oxygen Saturation (85298-6) 99 % Respiratory Rate (9279-1) 20 /min Heart Rate (8867-4) 65 /min 05/23/2024 06:51 PM Blood Pressure Systolic (8480-6) 1 36 mm[Hg] Blood Pressure Diastolic (8462-4) 71 mm[Hg] 05/25/2024 09:50 AM Oxygen Saturation (83333-5) 94 % Respiratory Rate (9279-1) 18 /min 05/25/2024 09:49 AM Temperature (8310-5) 98.1 [degF] Heart Rate (8867-4) 72 /min 05/25/2024 09:48 AM Blood Pressure Systolic (8480-6) 1 27 mm[Hg] Blood Pressure Diastolic (8462-4) 79 mm[Hg] 05/24/2024 08:01 PM Temperature (8310-5) 98.7 [degF] Oxygen Saturation (07348-3) 98 % Respiratory Rate (9279-1) 20 /min Heart Rate (8867-4) 55 /min 05/24/2024 06:45 PM Blood Pressure Systolic (8480-6) 1 12 mm[Hg] Blood Pressure Diastolic (8462-4) 70 mm[Hg] 05/25/2024 08:30 PM Temperature (8310-5) 97.9 [degF] Oxygen Saturation (57427-5) 97 % Respiratory Rate (9279-1) 20 /min Heart Rate (8867-4) 74 /min 05/26/2024 08:18 AM Temperature (8310-5) 98 [degF] Oxygen Saturation (52457-3) 96 % Respiratory Rate (9279-1) 20 /min Heart Rate (8867-4) 62 /min Blood Pressure Systolic (8480-6) 113 mm[Hg] Blood Pressure Diastolic (8462-4) 66 mm[Hg] 05/25/2024 07:06 PM Blood Pressure Systolic (8480-6) 1 30 mm[Hg] Blood Pressure Diastolic (8462-4) 72 mm[Hg] 05/26/2024 07:15 AM Blood Pressure Systolic (8480-6) 1 13 mm[Hg] Blood Pressure Diastolic (8462-4) 66 mm[Hg] 05/27/2024 07:54 AM Blood Pressure Systolic (8480-6) 1 60 mm[Hg] Blood Pressure Diastolic (8462-4) 89 mm[Hg] 05/27/2024 09:05 AM Temperature (8310-5) 97.3 [degF] Oxygen Saturation (96312-3) 93 % Respiratory Rate (9279-1) 18 /min Heart Rate (8867-4) 57 /min Blood Pressure Systolic (8480-6) 160 mm[Hg] Blood Pressure Diastolic (8462-4) 89 mm[Hg] 05/26/2024 08:29 PM Blood Pressure Systolic (8480-6) 1 12 mm[Hg] Blood Pressure Diastolic (8462-4) 57 mm[Hg] 05/27/2024 12:33 AM Temperature (8310-5) 98.7 [degF] Oxygen Saturation (00408-7) 97 % Respiratory Rate (9279-1) 19 /min Heart Rate (8867-4) 75 /min Blood Pressure Systolic (8480-6) 112 mm[Hg] Blood Pressure Diastolic (8462-4) 57 mm[Hg] 05/28/2024 12:03 AM Temperature (8310-5) 98.8 [degF] Oxygen Saturation (41121-9) 95 % Respiratory Rate (9279-1) 19 /min Heart Rate (8867-4) 62 /min Blood Pressure Systolic (8480-6) 143 mm[Hg] Blood Pressure Diastolic (8462-4) 81 mm[Hg] 05/27/2024 08:24 PM Blood Pressure Systolic (8480-6) 1 43 mm[Hg] Blood Pressure Diastolic (8462-4) 81 mm[Hg] 05/28/2024 06:39 PM Temperature (8310-5) 99.1 [degF] Oxygen Saturation (14393-0) 94 % Respiratory Rate (9279-1) 19 /min Heart Rate (8867-4) 62 /min Blood Pressure Systolic (8480-6) 134 mm[Hg] Blood Pressure Diastolic (8462-4) 70 mm[Hg] 05/28/2024 10:01 PM Temperature (8310-5) 98.1 [degF] Oxygen Saturation (24397-6) 97 % Respiratory Rate (9279-1) 19 /min Heart Rate (8867-4) 57 /min Blood Pressure Systolic (8480-6) 144 mm[Hg] Blood Pressure Diastolic (8462-4) 79 mm[Hg] 05/28/2024 12:43 PM Blood Pressure Systolic (8480-6) 1 34 mm[Hg] Blood Pressure Diastolic (8462-4) 78 mm[Hg] 05/28/2024 07:45 PM Blood Pressure Systolic (8480-6) 1 44 mm[Hg] Blood Pressure Diastolic (8462-4) 79 mm[Hg] 05/29/2024 08:27 AM Blood Pressure Systolic (8480-6) 1 53 mm[Hg] Blood Pressure Diastolic (8462-4) 89 mm[Hg] 05/29/2024 06:43 PM Temperature (8310-5) 99.3 [degF] Oxygen Saturation (79005-6) 94 % Respiratory Rate (9279-1) 17 /min Heart Rate (8867-4) 61 /min Blood Pressure Systolic (8480-6) 153 mm[Hg] Blood Pressure Diastolic (8462-4) 89 mm[Hg] 05/30/2024 06:39 PM Temperature (8310-5) 99.7 [degF] Oxygen Saturation (96027-2) 94 % Respiratory Rate (9279-1) 16 /min Heart Rate (8867-4) 54 /min Blood Pressure Systolic (8480-6) 137 mm[Hg] Blood Pressure Diastolic (8462-4) 73 mm[Hg] 05/29/2024 07:15 PM Blood Pressure Systolic (8480-6) 1 22 mm[Hg] Blood Pressure Diastolic (8462-4) 72 mm[Hg] 05/29/2024 09:27 PM Oxygen Saturation (36520-2) 96 % Respiratory Rate (9279-1) 16 /min Heart Rate (8867-4) 67 /min 05/30/2024 12:38 PM Blood Pressure Systolic (8480-6) 1 45 mm[Hg] Blood Pressure Diastolic (8462-4) 77 mm[Hg] 05/29/2024 09:26 PM Temperature (8310-5) 96.8 [degF] 05/31/2024 11:02 AM Blood Pressure Systolic (8480-6) 1 09 mm[Hg] Blood Pressure Diastolic (8462-4) 63 mm[Hg] 05/30/2024 09:14 PM Temperature (8310-5) 97.8 [degF] Oxygen Saturation (43075-5) 100 % Respiratory Rate (9279-1) 19 /min Heart Rate (8867-4) 73 /min Blood Pressure Systolic (8480-6) 135 mm[Hg] Blood Pressure Diastolic (8462-4) 83 mm[Hg] 05/30/2024 08:42 PM Blood Pressure Systolic (8480-6) 1 35 mm[Hg] Blood Pressure Diastolic (8462-4) 83 mm[Hg] 05/31/2024 02:37 PM Temperature (8310-5) 97.7 [degF] Oxygen Saturation (40044-8) 98 % Respiratory Rate (9279-1) 18 /min Heart Rate (8867-4) 58 /min Blood Pressure Systolic (8480-6) 109 mm[Hg] Blood Pressure Diastolic (8462-4) 63 mm[Hg] 06/01/2024 05:06 PM Temperature (8310-5) 97.7 [degF] Oxygen Saturation (53770-3) 94 % Respiratory Rate (9279-1) 18 /min Heart Rate (8867-4) 69 /min Blood Pressure Systolic (8480-6) 152 mm[Hg] Blood Pressure Diastolic (8462-4) 70 mm[Hg] 06/01/2024 09:06 AM Blood Pressure Systolic (8480-6) 1 52 mm[Hg] Blood Pressure Diastolic (8462-4) 70 mm[Hg] 05/31/2024 08:25 PM Temperature (8310-5) 99 [degF] Oxygen Saturation (33614-7) 99 % Respiratory Rate (9279-1) 14 /min Heart Rate (8867-4) 89 /min 05/31/2024 07:13 PM Blood Pressure Systolic (8480-6) 1 58 mm[Hg] Blood Pressure Diastolic (8462-4) 89 mm[Hg] 06/02/2024 01:07 PM Temperature (8310-5) 97 [degF] Oxygen Saturation (37893-3) 97 % Respiratory Rate (9279-1) 15 /min Heart Rate (8867-4) 61 /min Blood Pressure Systolic (8480-6) 130 mm[Hg] Blood Pressure Diastolic (8462-4) 77 mm[Hg] 06/02/2024 12:09 AM Temperature (8310-5) 97 [degF] Oxygen Saturation (40218-9) 95 % Respiratory Rate (9279-1) 18 /min Heart Rate (8867-4) 70 /min Blood Pressure Systolic (8480-6) 135 mm[Hg] Blood Pressure Diastolic (8462-4) 80 mm[Hg] 06/02/2024 09:38 AM Blood Pressure Systolic (8480-6) 1 30 mm[Hg] Blood Pressure Diastolic (8462-4) 77 mm[Hg] 06/01/2024 11:30 PM Blood Pressure Systolic (8480-6) 1 26 mm[Hg] Blood Pressure Diastolic (8462-4) 78 mm[Hg] 06/02/2024 11:29 PM Temperature (8310-5) 98.2 [degF] Oxygen Saturation (12507-8) 94 % Respiratory Rate (9279-1) 16 /min Heart Rate (8867-4) 71 /min Blood Pressure Systolic (8480-6) 126 mm[Hg] Blood Pressure Diastolic (8462-4) 74 mm[Hg] 06/03/2024 08:57 AM Blood Pressure Systolic (8480-6) 1 34 mm[Hg] Blood Pressure Diastolic (8462-4) 70 mm[Hg] 06/03/2024 02:25 PM Temperature (8310-5) 98.7 [degF] Oxygen Saturation (77215-8) 95 % Respiratory Rate (9279-1) 18 /min Heart Rate (8867-4) 58 /min Blood Pressure Systolic (8480-6) 104 mm[Hg] Blood Pressure Diastolic (8462-4) 70 mm[Hg] Body Weight (99942-0) 108 [lb_av] Body Mass Index (92829-7) 21.09 kg/m2 06/02/2024 08:08 PM Blood Pressure Systolic (8480-6) 1 26 mm[Hg] Blood Pressure Diastolic (8462-4) 74 mm[Hg] 06/04/2024 08:33 AM Temperature (8310-5) 97.8 [degF] Oxygen Saturation (18501-9) 93 % Respiratory Rate (9279-1) 20 /min Heart Rate (8867-4) 58 /min Blood Pressure Systolic (8480-6) 107 mm[Hg] Blood Pressure Diastolic (8462-4) 77 mm[Hg] 06/03/2024 08:23 PM Temperature (8310-5) 98.2 [degF] Oxygen Saturation (43539-2) 96 % Respiratory Rate (9279-1) 18 /min Heart Rate (8867-4) 79 /min Blood Pressure Systolic (8480-6) 131 mm[Hg] Blood Pressure Diastolic (8462-4) 62 mm[Hg] 06/03/2024 07:35 PM Blood Pressure Systolic (8480-6) 1 31 mm[Hg] Blood Pressure Diastolic (8462-4) 62 mm[Hg] 06/04/2024 11:15 PM Temperature (8310-5) 98 [degF] Oxygen Saturation (83587-1) 98 % Respiratory Rate (9279-1) 23 /min Heart Rate (8867-4) 67 /min Blood Pressure Systolic (8480-6) 132 mm[Hg] Blood Pressure Diastolic (8462-4) 65 mm[Hg] 06/04/2024 08:15 PM Blood Pressure Systolic (8480-6) 1 32 mm[Hg] Blood Pressure Diastolic (8462-4) 65 mm[Hg] 06/05/2024 09:12 PM Temperature (8310-5) 98.2 [degF] Oxygen Saturation (78995-6) 98 % Respiratory Rate (9279-1) 25 /min Heart Rate (8867-4) 65 /min 06/05/2024 10:42 AM Temperature (8310-5) 97.7 [degF] Oxygen Saturation (71698-5) 94 % Respiratory Rate (9279-1) 16 /min Heart Rate (8867-4) 63 /min Blood Pressure Systolic (8480-6) 132 mm[Hg] Blood Pressure Diastolic (8462-4) 70 mm[Hg] 06/05/2024 07:49 PM Blood Pressure Systolic (8480-6) 1 37 mm[Hg] Blood Pressure Diastolic (8462-4) 69 mm[Hg] 06/05/2024 09:17 AM Blood Pressure Systolic (8480-6) 1 31 mm[Hg] Blood Pressure Diastolic (8462-4) 61 mm[Hg] 06/06/2024 12:37 PM Temperature (8310-5) 97.8 [degF] Oxygen Saturation (59480-4) 98 % Respiratory Rate (9279-1) 20 /min Heart Rate (8867-4) 56 /min Blood Pressure Systolic (8480-6) 107 mm[Hg] Blood Pressure Diastolic (8462-4) 63 mm[Hg] 06/06/2024 07:39 AM Blood Pressure Systolic (8480-6) 1 37 mm[Hg] Blood Pressure Diastolic (8462-4) 89 mm[Hg] 06/06/2024 04:54 PM Body Weight (43803-3) 107.2 [lb_av ] Body Mass Index (82129-3) 20.93 kg/m2 06/06/2024 06:58 PM Blood Pressure Systolic (8480-6) 1 44 mm[Hg] Blood Pressure Diastolic (8462-4) 78 mm[Hg] 06/07/2024 05:17 PM Temperature (8310-5) 98.3 [degF] Oxygen Saturation (57838-3) 98 % Respiratory Rate (9279-1) 17 /min Heart Rate (8867-4) 56 /min Blood Pressure Systolic (8480-6) 127 mm[Hg] Blood Pressure Diastolic (8462-4) 71 mm[Hg] 06/07/2024 05:18 PM Body Weight (44736-5) 108.6 [lb_av ] Body Mass Index (88510-7) 21.21 kg/m2 06/06/2024 08:25 PM Temperature (8310-5) 96.9 [degF] Oxygen Saturation (70795-1) 99 % Respiratory Rate (9279-1) 18 /min Heart Rate (8867-4) 60 /min 06/07/2024 07:30 AM Blood Pressure Systolic (8480-6) 1 27 mm[Hg] Blood Pressure Diastolic (8462-4) 71 mm[Hg] 06/08/2024 03:32 PM Body Weight (47385-6) 108.8 [lb_av ] Body Mass Index (89209-2) 21.25 kg/m2 06/08/2024 03:29 PM Temperature (8310-5) 97.4 [degF] Oxygen Saturation (01915-7) 98 % Respiratory Rate (9279-1) 18 /min Heart Rate (8867-4) 55 /min Blood Pressure Systolic (8480-6) 122 mm[Hg] Blood Pressure Diastolic (8462-4) 74 mm[Hg] 06/08/2024 07:49 AM Blood Pressure Systolic (8480-6) 1 29 mm[Hg] Blood Pressure Diastolic (8462-4) 72 mm[Hg] 06/07/2024 06:55 PM Temperature (8310-5) 98.3 [degF] Oxygen Saturation (79825-6) 98 % Respiratory Rate (9279-1) 20 /min Heart Rate (8867-4) 63 /min 06/07/2024 06:43 PM Blood Pressure Systolic (8480-6) 1 19 mm[Hg] Blood Pressure Diastolic (8462-4) 67 mm[Hg] 06/09/2024 05:41 PM Temperature (8310-5) 98.7 [degF] Oxygen Saturation (27999-3) 100 % Respiratory Rate (9279-1) 17 /min Heart Rate (8867-4) 58 /min Blood Pressure Systolic (8480-6) 15 mm[Hg] Blood Pressure Diastolic (8462-4) 69 mm[Hg] 06/09/2024 03:00 PM Body Weight (97069-8) 107.4 [lb_av ] Body Mass Index (93109-7) 20.97 kg/m2 06/09/2024 07:08 AM Blood Pressure Systolic (8480-6) 1 34 mm[Hg] Blood Pressure Diastolic (8462-4) 76 mm[Hg] 06/08/2024 07:51 PM Temperature (8310-5) 98 [degF] Oxygen Saturation (00016-3) 96 % Respiratory Rate (9279-1) 21 /min Heart Rate (8867-4) 60 /min Blood Pressure Systolic (8480-6) 123 mm[Hg] Blood Pressure Diastolic (8462-4) 57 mm[Hg] 06/08/2024 06:41 PM Blood Pressure Systolic (8480-6) 1 30 mm[Hg] Blood Pressure Diastolic (8462-4) 70 mm[Hg] 06/10/2024 11:46 AM Temperature (8310-5) 99.2 [degF] Oxygen Saturation (06028-8) 96 % Respiratory Rate (9279-1) 19 /min Heart Rate (8867-4) 64 /min Blood Pressure Systolic (8480-6) 129 mm[Hg] Blood Pressure Diastolic (8462-4) 72 mm[Hg] 06/10/2024 08:55 AM Blood Pressure Systolic (8480-6) 1 29 mm[Hg] Blood Pressure Diastolic (8462-4) 72 mm[Hg] 06/09/2024 08:41 PM Temperature (8310-5) 98.1 [degF] Oxygen Saturation (47639-7) 96 % Respiratory Rate (9279-1) 21 /min Heart Rate (8867-4) 79 /min 06/09/2024 08:01 PM Blood Pressure Systolic (8480-6) 1 29 mm[Hg] Blood Pressure Diastolic (8462-4) 78 mm[Hg] 06/10/2024 08:54 PM Temperature (8310-5) 97.8 [degF] Oxygen Saturation (12284-6) 97 % Respiratory Rate (9279-1) 21 /min Heart Rate (8867-4) 64 /min Blood Pressure Systolic (8480-6) 117 mm[Hg] Blood Pressure Diastolic (8462-4) 77 mm[Hg] 06/10/2024 08:30 PM Blood Pressure Systolic (8480-6) 1 17 mm[Hg] Blood Pressure Diastolic (8462-4) 77 mm[Hg] 06/11/2024 07:42 PM Temperature (8310-5) 98 [degF] Oxygen Saturation (21253-6) 99 % Respiratory Rate (9279-1) 18 /min Heart Rate (8867-4) 58 /min 06/11/2024 06:57 PM Blood Pressure Systolic (8480-6) 9 7 mm[Hg] Blood Pressure Diastolic (8462-4) 58 mm[Hg] 06/11/2024 10:07 AM Temperature (8310-5) 96.7 [degF] Oxygen Saturation (24888-7) 98 % Respiratory Rate (9279-1) 19 /min Heart Rate (8867-4) 41 /min 06/11/2024 09:37 AM Blood Pressure Systolic (8480-6) 9 6 mm[Hg] Blood Pressure Diastolic (8462-4) 49 mm[Hg] 06/12/2024 07:02 AM Blood Pressure Systolic (8480-6) 1 43 mm[Hg] Blood Pressure Diastolic (8462-4) 77 mm[Hg] 06/12/2024 10:22 AM Temperature (8310-5) 98.5 [degF] Oxygen Saturation (14605-4) 93 % Respiratory Rate (9279-1) 17 /min Heart Rate (8867-4) 65 /min Blood Pressure Systolic (8480-6) 107 mm[Hg] Blood Pressure Diastolic (8462-4) 66 mm[Hg] 06/12/2024 08:21 PM Temperature (8310-5) 97.7 [degF] Oxygen Saturation (35395-9) 98 % Respiratory Rate (9279-1) 18 /min Heart Rate (8867-4) 62 /min Blood Pressure Systolic (8480-6) 144 mm[Hg] Blood Pressure Diastolic (8462-4) 82 mm[Hg] 06/13/2024 12:13 PM Oxygen Saturation (54855-9) 92 % 06/13/2024 12:12 PM Temperature (8310-5) 97.8 [degF] Respiratory Rate (9279-1) 18 /min Heart Rate (8867-4) 66 /min 06/13/2024 06:38 PM Blood Pressure Systolic (8480-6) 1 20 mm[Hg] Blood Pressure Diastolic (8462-4) 74 mm[Hg] 06/13/2024 07:08 AM Blood Pressure Systolic (8480-6) 1 27 mm[Hg] Blood Pressure Diastolic (8462-4) 60 mm[Hg] 06/13/2024 08:59 PM Temperature (8310-5) 97.7 [degF] Oxygen Saturation (84457-0) 96 % Respiratory Rate (9279-1) 20 /min Heart Rate (8867-4) 74 /min 06/14/2024 07:31 PM Temperature (8310-5) 97.4 [degF] Oxygen Saturation (44784-6) 97 % Respiratory Rate (9279-1) 20 /min Heart Rate (8867-4) 62 /min 06/14/2024 06:48 PM Blood Pressure Systolic (8480-6) 1 22 mm[Hg] Blood Pressure Diastolic (8462-4) 64 mm[Hg] 06/14/2024 08:25 AM Temperature (8310-5) 98 [degF] Oxygen Saturation (92041-8) 95 % Respiratory Rate (9279-1) 16 /min Heart Rate (8867-4) 57 /min Blood Pressure Systolic (8480-6) 110 mm[Hg] Blood Pressure Diastolic (8462-4) 66 mm[Hg] 06/15/2024 07:21 PM Oxygen Saturation (30619-4) 99 % 06/15/2024 07:20 PM Temperature (8310-5) 97.6 [degF] Respiratory Rate (9279-1) 18 /min Heart Rate (8867-4) 58 /min Blood Pressure Systolic (8480-6) 136 mm[Hg] Blood Pressure Diastolic (8462-4) 60 mm[Hg] 06/15/2024 09:44 AM Temperature (8310-5) 97.8 [degF] Oxygen Saturation (24822-9) 98 % Respiratory Rate (9279-1) 2 /min Heart Rate (8867-4) 76 /min Blood Pressure Systolic (8480-6) 132 mm[Hg] Blood Pressure Diastolic (8462-4) 76 mm[Hg] 06/15/2024 08:36 AM Blood Pressure Systolic (8480-6) 1 32 mm[Hg] Blood Pressure Diastolic (8462-4) 76 mm[Hg] 06/16/2024 08:24 AM Temperature (8310-5) 97.6 [degF] Oxygen Saturation (39897-6) 90 % Respiratory Rate (9279-1) 19 /min Heart Rate (8867-4) 66 /min Blood Pressure Systolic (8480-6) 151 mm[Hg] Blood Pressure Diastolic (8462-4) 73 mm[Hg] 06/16/2024 08:48 PM Temperature (8310-5) 98.1 [degF] Oxygen Saturation (78899-5) 93 % Respiratory Rate (9279-1) 17 /min Heart Rate (8867-4) 77 /min Blood Pressure Systolic (8480-6) 125 mm[Hg] Blood Pressure Diastolic (8462-4) 79 mm[Hg] 06/16/2024 07:49 PM Blood Pressure Systolic (8480-6) 1 25 mm[Hg] Blood Pressure Diastolic (8462-4) 79 mm[Hg] 06/17/2024 07:34 PM Blood Pressure Systolic (8480-6) 1 08 mm[Hg] Blood Pressure Diastolic (8462-4) 56 mm[Hg] 06/17/2024 10:09 AM Temperature (8310-5) 97.6 [degF] Oxygen Saturation (46784-9) 99 % Respiratory Rate (9279-1) 18 /min Heart Rate (8867-4) 56 /min Blood Pressure Systolic (8480-6) 135 mm[Hg] Blood Pressure Diastolic (8462-4) 72 mm[Hg] 06/17/2024 07:20 AM Blood Pressure Systolic (8480-6) 1 35 mm[Hg] Blood Pressure Diastolic (8462-4) 72 mm[Hg] 06/18/2024 08:22 AM Blood Pressure Systolic (8480-6) 1 24 mm[Hg] Blood Pressure Diastolic (8462-4) 70 mm[Hg] 06/17/2024 11:52 PM Temperature (8310-5) 98.3 [degF] Oxygen Saturation (86502-5) 96 % Respiratory Rate (9279-1) 21 /min Heart Rate (8867-4) 68 /min Blood Pressure Systolic (8480-6) 108 mm[Hg] Blood Pressure Diastolic (8462-4) 56 mm[Hg] 06/18/2024 09:46 PM Temperature (8310-5) 98.5 [degF] Oxygen Saturation (72736-7) 97 % Respiratory Rate (9279-1) 23 /min Heart Rate (8867-4) 65 /min Blood Pressure Systolic (8480-6) 140 mm[Hg] Blood Pressure Diastolic (8462-4) 81 mm[Hg] 06/18/2024 07:41 PM Blood Pressure Systolic (8480-6) 1 40 mm[Hg] Blood Pressure Diastolic (8462-4) 81 mm[Hg] 06/18/2024 05:45 PM Temperature (8310-5) 98.7 [degF] Oxygen Saturation (69932-8) 98 % Respiratory Rate (9279-1) 17 /min Heart Rate (8867-4) 72 /min 06/19/2024 07:33 PM Temperature (8310-5) 97.1 [degF] Oxygen Saturation (40362-3) 97 % Respiratory Rate (9279-1) 14 /min Heart Rate (8867-4) 63 /min Blood Pressure Systolic (8480-6) 110 mm[Hg] Blood Pressure Diastolic (8462-4) 54 mm[Hg] 06/19/2024 08:40 AM Temperature (8310-5) 97.8 [degF] Oxygen Saturation (27889-8) 96 % Respiratory Rate (9279-1) 18 /min Heart Rate (8867-4) 62 /min Blood Pressure Systolic (8480-6) 127 mm[Hg] Blood Pressure Diastolic (8462-4) 76 mm[Hg] 06/19/2024 07:37 AM Blood Pressure Systolic (8480-6) 1 29 mm[Hg] Blood Pressure Diastolic (8462-4) 70 mm[Hg] 06/21/2024 09:56 AM Temperature (8310-5) 97.7 [degF] Oxygen Saturation (84909-5) 95 % Respiratory Rate (9279-1) 16 /min Heart Rate (8867-4) 63 /min Blood Pressure Systolic (8480-6) 125 mm[Hg] Blood Pressure Diastolic (8462-4) 82 mm[Hg] 06/21/2024 09:55 AM Oxygen Saturation (38880-8) 95 % 06/21/2024 08:07 AM Blood Pressure Systolic (8480-6) 1 25 mm[Hg] Blood Pressure Diastolic (8462-4) 82 mm[Hg] 06/20/2024 07:28 PM Temperature (8310-5) 97.7 [degF] Respiratory Rate (9279-1) 18 /min Heart Rate (8867-4) 71 /min Blood Pressure Systolic (8480-6) 100 mm[Hg] Blood Pressure Diastolic (8462-4) 60 mm[Hg] 06/20/2024 07:27 PM Oxygen Saturation (24781-8) 93 % 06/22/2024 12:41 PM Temperature (8310-5) 98.3 [degF] Oxygen Saturation (06963-4) 92 % Respiratory Rate (9279-1) 16 /min Heart Rate (8867-4) 72 /min 06/22/2024 09:55 AM Blood Pressure Systolic (8480-6) 1 27 mm[Hg] Blood Pressure Diastolic (8462-4) 81 mm[Hg] 06/21/2024 07:47 PM Temperature (8310-5) 98.2 [degF] Oxygen Saturation (74847-5) 94 % Respiratory Rate (9279-1) 18 /min Heart Rate (8867-4) 71 /min Blood Pressure Systolic (8480-6) 138 mm[Hg] Blood Pressure Diastolic (8462-4) 70 mm[Hg] 06/23/2024 09:31 AM Temperature (8310-5) 98.2 [degF] Oxygen Saturation (92246-0) 93 % Respiratory Rate (9279-1) 20 /min Heart Rate (8867-4) 79 /min 06/23/2024 09:30 AM Blood Pressure Systolic (8480-6) 9 2 mm[Hg] Blood Pressure Diastolic (8462-4) 50 mm[Hg] 06/22/2024 08:07 PM Temperature (8310-5) 98.3 [degF] Respiratory Rate (9279-1) 20 /min Heart Rate (8867-4) 70 /min 06/22/2024 08:06 PM Oxygen Saturation (51977-3) 90 % 06/22/2024 06:34 PM Blood Pressure Systolic (8480-6) 1 28 mm[Hg] Blood Pressure Diastolic (8462-4) 80 mm[Hg] 06/23/2024 11:44 PM Temperature (8310-5) 98.6 [degF] Oxygen Saturation (73828-6) 95 % Respiratory Rate (9279-1) 22 /min Heart Rate (8867-4) 80 /min 06/23/2024 08:02 PM Oxygen Saturation (88164-8) 95 % 06/23/2024 08:01 PM Blood Pressure Systolic (8480-6) 1 33 mm[Hg] Blood Pressure Diastolic (8462-4) 75 mm[Hg] 06/24/2024 07:35 PM Blood Pressure Systolic (8480-6) 1 23 mm[Hg] Blood Pressure Diastolic (8462-4) 81 mm[Hg] 06/24/2024 07:34 PM Oxygen Saturation (55034-9) 96 % 06/24/2024 05:14 PM Body Weight (36012-6) 106.8 [lb_av ] Body Mass Index (31062-0) 20.86 kg/m2 06/24/2024 12:41 PM Temperature (8310-5) 98.1 [degF] Oxygen Saturation (18304-6) 96 % Respiratory Rate (9279-1) 18 /min Heart Rate (8867-4) 65 /min Blood Pressure Systolic (8480-6) 113 mm[Hg] Blood Pressure Diastolic (8462-4) 67 mm[Hg] 06/24/2024 10:54 AM Blood Pressure Systolic (8480-6) 1 13 mm[Hg] Blood Pressure Diastolic (8462-4) 67 mm[Hg] 2024 08:13 AM Blood Pressure Systolic (8480-6) 1 53 mm[Hg] Blood Pressure Diastolic (8462-4) 51 mm[Hg] 06/24/2024 11:32 PM Temperature (8310-5) 98.5 [degF] Oxygen Saturation (18724-6) 95 % Respiratory Rate (9279-1) 25 /min Heart Rate (8867-4) 90 /min Blood Pressure Systolic (8480-6) 103 mm[Hg] Blood Pressure Diastolic (8462-4) 49 mm[Hg] 2024 09:35 PM Temperature (8310-5) 99.2 [degF] Oxygen Saturation (60624-1) 97 % Respiratory Rate (9279-1) 16 /min Heart Rate (8867-4) 70 /min Blood Pressure Systolic (8480-6) 121 mm[Hg] Blood Pressure Diastolic (8462-4) 66 mm[Hg] 2024 09:34 PM Oxygen Saturation (14954-9) 97 % 2024 06:36 PM Blood Pressure Systolic (8480-6) 1 21 mm[Hg] Blood Pressure Diastolic (8462-4) 66 mm[Hg] 2024 02:44 PM Body Weight (45749-9) 105.8 [lb_av ] Body Mass Index (49356-2) 20.66 kg/m2 2024 02:41 PM Temperature (8310-5) 102 [degF] Oxygen Saturation (31007-6) 90 % Respiratory Rate (9279-1) 18 /min Heart Rate (8867-4) 81 /min 06/26/2024 07:18 PM Temperature (8310-5) 99 [degF] Oxygen Saturation (72303-0) 95 % Respiratory Rate (9279-1) 18 /min Heart Rate (8867-4) 68 /min Blood Pressure Systolic (8480-6) 117 mm[Hg] Blood Pressure Diastolic (8462-4) 65 mm[Hg] 06/26/2024 06:52 PM Blood Pressure Systolic (8480-6) 1 17 mm[Hg] Blood Pressure Diastolic (8462-4) 65 mm[Hg] 06/26/2024 08:58 AM Temperature (8310-5) 96.9 [degF] Oxygen Saturation (14608-7) 96 % Respiratory Rate (9279-1) 18 /min Heart Rate (8867-4) 63 /min Blood Pressure Systolic (8480-6) 150 mm[Hg] Blood Pressure Diastolic (8462-4) 85 mm[Hg] 06/27/2024 01:11 PM Temperature (8310-5) 97.8 [degF] Oxygen Saturation (18951-5) 94 % Respiratory Rate (9279-1) 19 /min Heart Rate (8867-4) 64 /min Blood Pressure Systolic (8480-6) 133 mm[Hg] Blood Pressure Diastolic (8462-4) 78 mm[Hg] 06/27/2024 01:06 PM Oxygen Saturation (92774-9) 94 % 06/27/2024 07:45 PM Temperature (8310-5) 96.9 [degF] Respiratory Rate (9279-1) 20 /min Heart Rate (8867-4) 83 /min 06/27/2024 07:44 PM Oxygen Saturation (55328-9) 95 % 06/27/2024 06:52 PM Blood Pressure Systolic (8480-6) 1 05 mm[Hg] Blood Pressure Diastolic (8462-4) 73 mm[Hg] 06/28/2024 07:56 PM Temperature (8310-5) 97.9 [degF] Oxygen Saturation (44509-4) 96 % Respiratory Rate (9279-1) 15 /min Heart Rate (8867-4) 62 /min 06/28/2024 06:42 PM Blood Pressure Systolic (8480-6) 1 28 mm[Hg] Blood Pressure Diastolic (8462-4) 70 mm[Hg] 06/28/2024 08:34 AM Temperature (8310-5) 97.4 [degF] Oxygen Saturation (88724-6) 94 % Respiratory Rate (9279-1) 16 /min Heart Rate (8867-4) 79 /min Blood Pressure Systolic (8480-6) 137 mm[Hg] Blood Pressure Diastolic (8462-4) 88 mm[Hg] 06/28/2024 06:58 AM Blood Pressure Systolic (8480-6) 1 37 mm[Hg] Blood Pressure Diastolic (8462-4) 88 mm[Hg] 06/29/2024 01:38 PM Temperature (8310-5) 98.1 [degF] Respiratory Rate (9279-1) 16 /min Heart Rate (8867-4) 66 /min 06/29/2024 01:37 PM Oxygen Saturation (09392-4) 93 % 06/29/2024 07:53 AM Blood Pressure Systolic (8480-6) 1 24 mm[Hg] Blood Pressure Diastolic (8462-4) 72 mm[Hg] 06/29/2024 09:02 PM Temperature (8310-5) 97 [degF] Respiratory Rate (9279-1) 16 /min Heart Rate (8867-4) 88 /min Blood Pressure Systolic (8480-6) 126 mm[Hg] Blood Pressure Diastolic (8462-4) 80 mm[Hg] 06/29/2024 09:01 PM Oxygen Saturation (20144-8) 96 % 06/29/2024 08:21 PM Blood Pressure Systolic (8480-6) 1 22 mm[Hg] Blood Pressure Diastolic (8462-4) 78 mm[Hg] 06/30/2024 08:09 PM Temperature (8310-5) 98.6 [degF] Oxygen Saturation (21451-2) 94 % Respiratory Rate (9279-1) 17 /min Heart Rate (8867-4) 67 /min Blood Pressure Systolic (8480-6) 128 mm[Hg] Blood Pressure Diastolic (8462-4) 64 mm[Hg] 06/30/2024 08:03 AM Temperature (8310-5) 99.2 [degF] Oxygen Saturation (66458-6) 93 % Respiratory Rate (9279-1) 18 /min Heart Rate (8867-4) 79 /min Blood Pressure Systolic (8480-6) 142 mm[Hg] Blood Pressure Diastolic (8462-4) 86 mm[Hg] 07/01/2024 09:42 AM Temperature (8310-5) 96.5 [degF] Oxygen Saturation (40613-6) 96 % Respiratory Rate (9279-1) 20 /min Heart Rate (8867-4) 68 /min Blood Pressure Systolic (8480-6) 139 mm[Hg] Blood Pressure Diastolic (8462-4) 71 mm[Hg] 07/01/2024 07:22 AM Blood Pressure Systolic (8480-6) 1 42 mm[Hg] Blood Pressure Diastolic (8462-4) 70 mm[Hg] 07/02/2024 09:26 AM Temperature (8310-5) 96.9 [degF] Respiratory Rate (9279-1) 16 /min Heart Rate (8867-4) 72 /min 07/02/2024 09:24 AM Oxygen Saturation (88854-4) 94 % 07/02/2024 09:22 AM Blood Pressure Systolic (8480-6) 1 45 mm[Hg] Blood Pressure Diastolic (8462-4) 68 mm[Hg] 07/01/2024 11:36 PM Body Weight (18445-3) 104.6 [lb_av ] Body Mass Index (71948-7) 20.43 kg/m2 07/01/2024 09:54 PM Temperature (8310-5) 98 [degF] Oxygen Saturation (72924-1) 95 % Respiratory Rate (9279-1) 16 /min Heart Rate (8867-4) 69 /min Blood Pressure Systolic (8480-6) 97 mm[Hg] Blood Pressure Diastolic (8462-4) 80 mm[Hg] 07/01/2024 08:07 PM Blood Pressure Systolic (8480-6) 9 7 mm[Hg] Blood Pressure Diastolic (8462-4) 80 mm[Hg] 07/02/2024 08:29 PM Temperature (8310-5) 98.5 [degF] Oxygen Saturation (28153-7) 94 % Respiratory Rate (9279-1) 21 /min Heart Rate (8867-4) 73 /min Blood Pressure Systolic (8480-6) 106 mm[Hg] Blood Pressure Diastolic (8462-4) 65 mm[Hg] 07/02/2024 07:46 PM Blood Pressure Systolic (8480-6) 1 06 mm[Hg] Blood Pressure Diastolic (8462-4) 65 mm[Hg] 07/03/2024 07:26 PM Blood Pressure Systolic (8480-6) 1 10 mm[Hg] Blood Pressure Diastolic (8462-4) 58 mm[Hg] 07/03/2024 07:22 PM Temperature (8310-5) 96.4 [degF] Oxygen Saturation (27991-8) 97 % Respiratory Rate (9279-1) 16 /min Heart Rate (8867-4) 73 /min Blood Pressure Systolic (8480-6) 110 mm[Hg] Blood Pressure Diastolic (8462-4) 158 mm[Hg] 07/03/2024 01:37 PM Body Weight (24397-8) 105 [lb_av] Body Mass Index (29701-4) 20.5 kg/m2 07/03/2024 06:52 AM Temperature (8310-5) 97.8 [degF] Respiratory Rate (9279-1) 18 /min Heart Rate (8867-4) 60 /min Blood Pressure Systolic (8480-6) 129 mm[Hg] Blood Pressure Diastolic (8462-4) 69 mm[Hg] 07/03/2024 06:47 AM Oxygen Saturation (04173-4) 96 % 07/04/2024 02:14 PM Body Weight (81160-4) 105.4 [lb_av ] Body Mass Index (75016-1) 20.58 kg/m2 07/04/2024 09:11 AM Temperature (8310-5) 97.5 [degF] Oxygen Saturation (47607-0) 95 % Respiratory Rate (9279-1) 16 /min Heart Rate (8867-4) 69 /min Blood Pressure Systolic (8480-6) 124 mm[Hg] Blood Pressure Diastolic (8462-4) 73 mm[Hg] 07/04/2024 07:51 AM Oxygen Saturation (60933-8) 94 % 07/05/2024 01:23 PM Body Weight (41599-1) 106.3 [lb_av ] Body Mass Index (55124-1) 20.76 kg/m2 07/05/2024 11:31 AM Temperature (8310-5) 97.1 [degF] Oxygen Saturation (24930-7) 99 % Respiratory Rate (9279-1) 16 /min Heart Rate (8867-4) 76 /min 07/05/2024 11:30 AM Blood Pressure Systolic (8480-6) 1 17 mm[Hg] Blood Pressure Diastolic (8462-4) 70 mm[Hg] 07/04/2024 08:43 PM Temperature (8310-5) 97.9 [degF] Respiratory Rate (9279-1) 20 /min Heart Rate (8867-4) 69 /min 07/04/2024 08:42 PM Oxygen Saturation (66622-6) 92 % 07/04/2024 06:41 PM Blood Pressure Systolic (8480-6) 1 20 mm[Hg] Blood Pressure Diastolic (8462-4) 80 mm[Hg] 07/06/2024 02:29 PM Body Weight (11394-1) 106.1 [lb_av ] Body Mass Index (98235-7) 20.72 kg/m2 07/06/2024 12:15 PM Temperature (8310-5) 97.8 [degF] Oxygen Saturation (53952-0) 94 % Respiratory Rate (9279-1) 20 /min Heart Rate (8867-4) 72 /min 07/06/2024 07:39 AM Blood Pressure Systolic (8480-6) 1 24 mm[Hg] Blood Pressure Diastolic (8462-4) 70 mm[Hg] 07/05/2024 07:49 PM Temperature (8310-5) 98.7 [degF] Oxygen Saturation (09297-8) 96 % Respiratory Rate (9279-1) 18 /min Heart Rate (8867-4) 79 /min 07/05/2024 06:45 PM Blood Pressure Systolic (8480-6) 1 54 mm[Hg] Blood Pressure Diastolic (8462-4) 78 mm[Hg] 07/07/2024 10:08 AM Temperature (8310-5) 97.7 [degF] Oxygen Saturation (89966-5) 94 % Respiratory Rate (9279-1) 19 /min Heart Rate (8867-4) 61 /min Blood Pressure Systolic (8480-6) 136 mm[Hg] Blood Pressure Diastolic (8462-4) 79 mm[Hg] 07/07/2024 09:11 AM Blood Pressure Systolic (8480-6) 1 34 mm[Hg] Blood Pressure Diastolic (8462-4) 78 mm[Hg] 07/06/2024 09:01 PM Temperature (8310-5) 98.2 [degF] Respiratory Rate (9279-1) 19 /min Heart Rate (8867-4) 67 /min 07/06/2024 09:00 PM Oxygen Saturation (11953-6) 94 % 07/06/2024 06:47 PM Blood Pressure Systolic (8480-6) 1 10 mm[Hg] Blood Pressure Diastolic (8462-4) 82 mm[Hg] 07/07/2024 08:10 PM Temperature (8310-5) 98.5 [degF] Respiratory Rate (9279-1) 21 /min Heart Rate (8867-4) 58 /min 07/07/2024 07:41 PM Blood Pressure Systolic (8480-6) 1 20 mm[Hg] Blood Pressure Diastolic (8462-4) 75 mm[Hg] 07/07/2024 07:40 PM Oxygen Saturation (57979-3) 99 % 07/08/2024 07:37 PM Temperature (8310-5) 98.5 [degF] Oxygen Saturation (64166-1) 97 % Respiratory Rate (9279-1) 21 /min Heart Rate (8867-4) 64 /min Blood Pressure Systolic (8480-6) 109 mm[Hg] Blood Pressure Diastolic (8462-4) 67 mm[Hg] 07/08/2024 11:55 AM Temperature (8310-5) 97.8 [degF] Respiratory Rate (9279-1) 20 /min Heart Rate (8867-4) 66 /min Blood Pressure Systolic (8480-6) 115 mm[Hg] Blood Pressure Diastolic (8462-4) 69 mm[Hg] 07/08/2024 11:54 AM Oxygen Saturation (62232-3) 94 % 07/08/2024 11:07 AM Blood Pressure Systolic (8480-6) 1 15 mm[Hg] Blood Pressure Diastolic (8462-4) 69 mm[Hg] 07/09/2024 07:38 AM Blood Pressure Systolic (8480-6) 1 36 mm[Hg] Blood Pressure Diastolic (8462-4) 68 mm[Hg] 07/09/2024 07:37 AM Oxygen Saturation (25629-6) 95 % 07/09/2024 07:36 AM Temperature (8310-5) 96.7 [degF] Oxygen Saturation (09583-1) 95 % Respiratory Rate (9279-1) 19 /min Heart Rate (8867-4) 59 /min Blood Pressure Systolic (8480-6) 136 mm[Hg] Blood Pressure Diastolic (8462-4) 68 mm[Hg] 07/09/2024 08:53 PM Temperature (8310-5) 98.4 [degF] Respiratory Rate (9279-1) 21 /min Heart Rate (8867-4) 61 /min 07/09/2024 08:52 PM Oxygen Saturation (79222-9) 99 % Blood Pressure Systolic (8480-6) 116 mm[Hg] Blood Pressure Diastolic (8462-4) 60 mm[Hg] 07/10/2024 09:19 PM Temperature (8310-5) 98.1 [degF] Oxygen Saturation (02940-5) 91 % Respiratory Rate (9279-1) 17 /min Heart Rate (8867-4) 69 /min Blood Pressure Systolic (8480-6) 146 mm[Hg] Blood Pressure Diastolic (8462-4) 72 mm[Hg] 07/10/2024 08:53 AM Temperature (8310-5) 97.2 [degF] Oxygen Saturation (28824-7) 99 % Respiratory Rate (9279-1) 19 /min Heart Rate (8867-4) 60 /min 07/10/2024 07:34 AM Blood Pressure Systolic (8480-6) 1 14 mm[Hg] Blood Pressure Diastolic (8462-4) 68 mm[Hg] 07/11/2024 09:19 AM Temperature (8310-5) 97 [degF] Oxygen Saturation (21588-1) 97 % Respiratory Rate (9279-1) 20 /min Heart Rate (8867-4) 71 /min Blood Pressure Systolic (8480-6) 132 mm[Hg] Blood Pressure Diastolic (8462-4) 67 mm[Hg] 07/11/2024 07:20 PM Temperature (8310-5) 96.9 [degF] Respiratory Rate (9279-1) 20 /min Heart Rate (8867-4) 68 /min 07/11/2024 07:19 PM Oxygen Saturation (06807-2) 98 % 07/11/2024 06:42 PM Blood Pressure Systolic (8480-6) 1 02 mm[Hg] Blood Pressure Diastolic (8462-4) 50 mm[Hg] 07/12/2024 08:21 AM Temperature (8310-5) 98.2 [degF] Oxygen Saturation (15235-3) 100 % Respiratory Rate (9279-1) 16 /min Heart Rate (8867-4) 74 /min 07/12/2024 08:20 AM Blood Pressure Systolic (8480-6) 1 15 mm[Hg] Blood Pressure Diastolic (8462-4) 77 mm[Hg] 07/12/2024 07:33 AM Body Weight (75123-4) 116.2 [lb_av ] Body Mass Index (93645-9) 22.69 kg/m2 07/12/2024 07:33 AM Body Weight (17769-8) 105.2 [lb_av ] Body Mass Index (48286-2) 20.54 kg/m2 07/12/2024 06:38 PM Blood Pressure Systolic (8480-6) 1 12 mm[Hg] Blood Pressure Diastolic (8462-4) 62 mm[Hg] 07/12/2024 06:50 PM Oxygen Saturation (92361-6) 97 % 07/12/2024 06:51 PM Temperature (8310-5) 97.4 [degF] Respiratory Rate (9279-1) 17 /min Heart Rate (8867-4) 77 /min 07/13/2024 08:13 AM Temperature (8310-5) 96.9 [degF] Oxygen Saturation (41709-1) 93 % Respiratory Rate (9279-1) 16 /min Heart Rate (8867-4) 81 /min 07/13/2024 08:12 AM Blood Pressure Systolic (8480-6) 1 55 mm[Hg] Blood Pressure Diastolic (8462-4) 72 mm[Hg] 07/13/2024 10:37 PM Temperature (8310-5) 97 [degF] Respiratory Rate (9279-1) 16 /min Heart Rate (8867-4) 70 /min Blood Pressure Systolic (8480-6) 120 mm[Hg] Blood Pressure Diastolic (8462-4) 88 mm[Hg] 07/13/2024 10:35 PM Oxygen Saturation (65491-7) 96 % 07/13/2024 08:11 PM Blood Pressure Systolic (8480-6) 1 35 mm[Hg] Blood Pressure Diastolic (8462-4) 78 mm[Hg] 07/14/2024 12:55 PM Temperature (8310-5) 97.4 [degF] Oxygen Saturation (79113-3) 98 % Respiratory Rate (9279-1) 17 /min Heart Rate (8867-4) 63 /min Blood Pressure Systolic (8480-6) 136 mm[Hg] Blood Pressure Diastolic (8462-4) 57 mm[Hg] 07/14/2024 08:04 PM Temperature (8310-5) 98.3 [degF] Oxygen Saturation (42377-9) 95 % Respiratory Rate (9279-1) 21 /min Heart Rate (8867-4) 80 /min 07/14/2024 08:03 PM Blood Pressure Systolic (8480-6) 1 13 mm[Hg] Blood Pressure Diastolic (8462-4) 73 mm[Hg] 07/15/2024 07:08 AM Temperature (8310-5) 96.5 [degF] Oxygen Saturation (55108-6) 98 % Respiratory Rate (9279-1) 17 /min Heart Rate (8867-4) 67 /min Blood Pressure Systolic (8480-6) 172 mm[Hg] Blood Pressure Diastolic (8462-4) 88 mm[Hg] 07/15/2024 08:31 PM Temperature (8310-5) 98.2 [degF] Respiratory Rate (9279-1) 25 /min Heart Rate (8867-4) 80 /min 07/15/2024 08:29 PM Oxygen Saturation (78745-0) 96 % 07/15/2024 07:25 PM Blood Pressure Systolic (8480-6) 1 31 mm[Hg] Blood Pressure Diastolic (8462-4) 88 mm[Hg] 07/16/2024 08:27 AM Blood Pressure Systolic (8480-6) 1 30 mm[Hg] Blood Pressure Diastolic (8462-4) 85 mm[Hg] 07/16/2024 12:57 PM Temperature (8310-5) 98 [degF] Respiratory Rate (9279-1) 18 /min Heart Rate (8867-4) 74 /min Blood Pressure Systolic (8480-6) 130 mm[Hg] Blood Pressure Diastolic (8462-4) 85 mm[Hg] 07/16/2024 11:57 AM Oxygen Saturation (98539-5) 95 % 07/16/2024 09:58 PM Temperature (8310-5) 98.4 [degF] Oxygen Saturation (19805-0) 96 % Respiratory Rate (9279-1) 20 /min Heart Rate (8867-4) 71 /min Blood Pressure Systolic (8480-6) 113 mm[Hg] Blood Pressure Diastolic (8462-4) 71 mm[Hg] 07/17/2024 08:54 AM Temperature (8310-5) 97.5 [degF] Respiratory Rate (9279-1) 17 /min Heart Rate (8867-4) 67 /min 07/17/2024 08:53 AM Oxygen Saturation (91192-0) 95 % Blood Pressure Systolic (8480-6) 131 mm[Hg] Blood Pressure Diastolic (8462-4) 72 mm[Hg] 07/17/2024 07:08 PM Temperature (8310-5) 97.4 [degF] Oxygen Saturation (04376-1) 96 % Respiratory Rate (9279-1) 18 /min Heart Rate (8867-4) 74 /min Blood Pressure Systolic (8480-6) 128 mm[Hg] Blood Pressure Diastolic (8462-4) 74 mm[Hg] 07/18/2024 07:41 AM Temperature (8310-5) 97.5 [degF] Oxygen Saturation (00275-4) 99 % Respiratory Rate (9279-1) 19 /min Heart Rate (8867-4) 67 /min Blood Pressure Systolic (8480-6) 131 mm[Hg] Blood Pressure Diastolic (8462-4) 79 mm[Hg] 07/18/2024 07:16 AM Blood Pressure Systolic (8480-6) 1 37 mm[Hg] Blood Pressure Diastolic (8462-4) 79 mm[Hg] 07/19/2024 07:19 AM Blood Pressure Systolic (8480-6) 1 27 mm[Hg] Blood Pressure Diastolic (8462-4) 61 mm[Hg] 07/18/2024 07:41 PM Temperature (8310-5) 99 [degF] Oxygen Saturation (19242-9) 99 % Respiratory Rate (9279-1) 18 /min Heart Rate (8867-4) 74 /min 07/18/2024 07:05 PM Blood Pressure Systolic (8480-6) 1 00 mm[Hg] Blood Pressure Diastolic (8462-4) 68 mm[Hg] 07/19/2024 06:32 PM Blood Pressure Systolic (8480-6) 1 28 mm[Hg] Blood Pressure Diastolic (8462-4) 60 mm[Hg] 07/19/2024 02:34 PM Oxygen Saturation (12976-8) 99 % 07/19/2024 11:22 AM Body Weight (79339-5) 104.2 [lb_av ] Body Mass Index (50124-2) 20.35 kg/m2 07/19/2024 10:44 AM Temperature (8310-5) 97.8 [degF] Oxygen Saturation (56087-1) 97 % Respiratory Rate (9279-1) 18 /min Heart Rate (8867-4) 73 /min Blood Pressure Systolic (8480-6) 127 mm[Hg] Blood Pressure Diastolic (8462-4) 61 mm[Hg] 07/19/2024 10:43 AM Oxygen Saturation (62675-5) 97 % 07/19/2024 07:01 PM Temperature (8310-5) 98.4 [degF] Oxygen Saturation (97394-1) 99 % Respiratory Rate (9279-1) 18 /min Heart Rate (8867-4) 65 /min 07/20/2024 09:25 AM Temperature (8310-5) 98.6 [degF] Oxygen Saturation (74644-1) 94 % Respiratory Rate (9279-1) 20 /min Heart Rate (8867-4) 66 /min Blood Pressure Systolic (8480-6) 128 mm[Hg] Blood Pressure Diastolic (8462-4) 59 mm[Hg] 07/20/2024 06:33 AM Oxygen Saturation (06921-0) 94 % Blood Pressure Systolic (8480-6) 128 mm[Hg] Blood Pressure Diastolic (8462-4) 59 mm[Hg] 07/20/2024 06:46 PM Blood Pressure Systolic (8480-6) 1 14 mm[Hg] Blood Pressure Diastolic (8462-4) 83 mm[Hg] 07/20/2024 07:56 PM Temperature (8310-5) 98.1 [degF] Oxygen Saturation (07199-2) 98 % Respiratory Rate (9279-1) 20 /min Heart Rate (8867-4) 71 /min 07/21/2024 08:28 AM Temperature (8310-5) 96.8 [degF] Oxygen Saturation (49728-7) 100 % Respiratory Rate (9279-1) 16 /min Heart Rate (8867-4) 56 /min 07/21/2024 08:26 AM Blood Pressure Systolic (8480-6) 1 31 mm[Hg] Blood Pressure Diastolic (8462-4) 88 mm[Hg] 07/21/2024 08:26 PM Temperature (8310-5) 98.1 [degF] Respiratory Rate (9279-1) 19 /min Heart Rate (8867-4) 68 /min Blood Pressure Systolic (8480-6) 107 mm[Hg] Blood Pressure Diastolic (8462-4) 61 mm[Hg] 07/21/2024 08:25 PM Oxygen Saturation (35334-7) 98 % 07/21/2024 08:03 PM Blood Pressure Systolic (8480-6) 1 07 mm[Hg] Blood Pressure Diastolic (8462-4) 61 mm[Hg] 07/22/2024 07:07 AM Temperature (8310-5) 98.8 [degF] Oxygen Saturation (39736-5) 100 % Respiratory Rate (9279-1) 16 /min Heart Rate (8867-4) 65 /min Blood Pressure Systolic (8480-6) 112 mm[Hg] Blood Pressure Diastolic (8462-4) 68 mm[Hg] 07/22/2024 09:40 PM Temperature (8310-5) 98.4 [degF] Oxygen Saturation (65287-2) 97 % Respiratory Rate (9279-1) 21 /min Heart Rate (8867-4) 68 /min 07/22/2024 09:39 PM Oxygen Saturation (32159-7) 97 % Blood Pressure Systolic (8480-6) 108 mm[Hg] Blood Pressure Diastolic (8462-4) 58 mm[Hg] 07/23/2024 08:32 AM Temperature (8310-5) 97.6 [degF] Oxygen Saturation (63005-6) 97 % Respiratory Rate (9279-1) 19 /min Heart Rate (8867-4) 66 /min 07/23/2024 08:31 AM Blood Pressure Systolic (8480-6) 1 15 mm[Hg] Blood Pressure Diastolic (8462-4) 79 mm[Hg] 07/23/2024 08:23 PM Temperature (8310-5) 97.8 [degF] Oxygen Saturation (05215-1) 96 % Respiratory Rate (9279-1) 21 /min Heart Rate (8867-4) 71 /min 07/23/2024 08:22 PM Blood Pressure Systolic (8480-6) 1 15 mm[Hg] Blood Pressure Diastolic (8462-4) 66 mm[Hg] 07/24/2024 10:28 AM Temperature (8310-5) 97.7 [degF] Oxygen Saturation (22748-9) 98 % Respiratory Rate (9279-1) 18 /min Heart Rate (8867-4) 60 /min 07/24/2024 10:27 AM Blood Pressure Systolic (8480-6) 1 18 mm[Hg] Blood Pressure Diastolic (8462-4) 63 mm[Hg] 07/24/2024 06:32 PM Temperature (8310-5) 98.3 [degF] Oxygen Saturation (60203-6) 99 % Respiratory Rate (9279-1) 19 /min Heart Rate (8867-4) 92 /min Blood Pressure Systolic (8480-6) 129 mm[Hg] Blood Pressure Diastolic (8462-4) 74 mm[Hg] 07/25/2024 06:51 AM Temperature (8310-5) 97.6 [degF] Oxygen Saturation (51587-1) 99 % Respiratory Rate (9279-1) 19 /min Heart Rate (8867-4) 61 /min Blood Pressure Systolic (8480-6) 116 mm[Hg] Blood Pressure Diastolic (8462-4) 66 mm[Hg] 07/25/2024 08:50 PM Temperature (8310-5) 97.3 [degF] Oxygen Saturation (81442-5) 96 % Respiratory Rate (9279-1) 20 /min Heart Rate (8867-4) 65 /min 07/25/2024 06:57 PM Blood Pressure Systolic (8480-6) 1 12 mm[Hg] Blood Pressure Diastolic (8462-4) 75 mm[Hg] 07/26/2024 12:45 PM Body Weight (98926-6) 107 [lb_av] Body Mass Index (88381-5) 20.89 kg/m2 07/26/2024 10:52 AM Temperature (8310-5) 98.1 [degF] Oxygen Saturation (08254-3) 98 % Respiratory Rate (9279-1) 20 /min Heart Rate (8867-4) 59 /min Blood Pressure Systolic (8480-6) 125 mm[Hg] Blood Pressure Diastolic (8462-4) 74 mm[Hg] 07/26/2024 10:51 AM Blood Pressure Systolic (8480-6) 1 25 mm[Hg] Blood Pressure Diastolic (8462-4) 74 mm[Hg] 07/26/2024 07:33 PM Temperature (8310-5) 98.2 [degF] Oxygen Saturation (16243-4) 93 % Respiratory Rate (9279-1) 17 /min Heart Rate (8867-4) 68 /min 07/26/2024 06:46 PM Blood Pressure Systolic (8480-6) 1 08 mm[Hg] Blood Pressure Diastolic (8462-4) 58 mm[Hg] 07/27/2024 09:08 AM Blood Pressure Systolic (8480-6) 1 34 mm[Hg] Blood Pressure Diastolic (8462-4) 66 mm[Hg] 07/27/2024 04:51 PM Oxygen Saturation (91729-7) 97 % 07/27/2024 04:39 PM Temperature (8310-5) 97 [degF] Respiratory Rate (9279-1) 16 /min Heart Rate (8867-4) 69 /min Blood Pressure Systolic (8480-6) 134 mm[Hg] Blood Pressure Diastolic (8462-4) 66 mm[Hg] 07/28/2024 12:13 AM Temperature (8310-5) 97 [degF] Oxygen Saturation (96302-2) 96 % Respiratory Rate (9279-1) 20 /min Heart Rate (8867-4) 64 /min 07/28/2024 12:12 AM Blood Pressure Systolic (8480-6) 1 28 mm[Hg] Blood Pressure Diastolic (8462-4) 68 mm[Hg] 07/28/2024 09:11 AM Oxygen Saturation (25837-1) 96 % 07/28/2024 09:10 AM Temperature (8310-5) 97.6 [degF] Respiratory Rate (9279-1) 16 /min Heart Rate (8867-4) 66 /min Blood Pressure Systolic (8480-6) 151 mm[Hg] Blood Pressure Diastolic (8462-4) 63 mm[Hg] 07/28/2024 10:45 PM Temperature (8310-5) 98.4 [degF] Oxygen Saturation (92227-5) 96 % Respiratory Rate (9279-1) 18 /min Heart Rate (8867-4) 63 /min Blood Pressure Systolic (8480-6) 150 mm[Hg] Blood Pressure Diastolic (8462-4) 99 mm[Hg] 07/29/2024 08:40 AM Temperature (8310-5) 97.9 [degF] Oxygen Saturation (48048-9) 97 % Respiratory Rate (9279-1) 18 /min Heart Rate (8867-4) 65 /min Blood Pressure Systolic (8480-6) 125 mm[Hg] Blood Pressure Diastolic (8462-4) 70 mm[Hg] 07/29/2024 07:48 AM Blood Pressure Systolic (8480-6) 1 25 mm[Hg] Blood Pressure Diastolic (8462-4) 70 mm[Hg] 07/29/2024 09:51 PM Temperature (8310-5) 98.5 [degF] Oxygen Saturation (68892-9) 96 % Respiratory Rate (9279-1) 18 /min Heart Rate (8867-4) 68 /min Blood Pressure Systolic (8480-6) 119 mm[Hg] Blood Pressure Diastolic (8462-4) 73 mm[Hg] 07/29/2024 07:20 PM Blood Pressure Systolic (8480-6) 1 19 mm[Hg] Blood Pressure Diastolic (8462-4) 73 mm[Hg] 07/30/2024 04:00 PM Temperature (8310-5) 97.8 [degF] Oxygen Saturation (48031-2) 95 % Respiratory Rate (9279-1) 20 /min Heart Rate (8867-4) 63 /min Blood Pressure Systolic (8480-6) 108 mm[Hg] Blood Pressure Diastolic (8462-4) 61 mm[Hg] 07/30/2024 07:32 PM Blood Pressure Systolic (8480-6) 1 27 mm[Hg] Blood Pressure Diastolic (8462-4) 77 mm[Hg] 07/31/2024 07:29 AM Blood Pressure Systolic (8480-6) 1 15 mm[Hg] Blood Pressure Diastolic (8462-4) 69 mm[Hg] 07/31/2024 02:38 AM Temperature (8310-5) 98.4 [degF] Oxygen Saturation (58971-2) 95 % Respiratory Rate (9279-1) 18 /min Heart Rate (8867-4) 73 /min Blood Pressure Systolic (8480-6) 127 mm[Hg] Blood Pressure Diastolic (8462-4) 77 mm[Hg] 07/31/2024 10:34 AM Temperature (8310-5) 98.2 [degF] Oxygen Saturation (35272-4) 97 % Respiratory Rate (9279-1) 19 /min Heart Rate (8867-4) 60 /min Blood Pressure Systolic (8480-6) 115 mm[Hg] Blood Pressure Diastolic (8462-4) 69 mm[Hg] 07/31/2024 08:15 PM Temperature (8310-5) 96.8 [degF] Oxygen Saturation (41101-9) 98 % Respiratory Rate (9279-1) 17 /min Heart Rate (8867-4) 59 /min Blood Pressure Systolic (8480-6) 116 mm[Hg] Blood Pressure Diastolic (8462-4) 83 mm[Hg] 07/31/2024 08:14 PM Blood Pressure Systolic (8480-6) 1 16 mm[Hg] Blood Pressure Diastolic (8462-4) 83 mm[Hg] 08/01/2024 09:50 AM Body Weight (57072-3) 109.2 [lb_av ] Body Mass Index (91313-4) 21.32 kg/m2 08/01/2024 09:49 AM Blood Pressure Systolic (8480-6) 1 16 mm[Hg] Blood Pressure Diastolic (8462-4) 62 mm[Hg] 08/01/2024 11:04 AM Temperature (8310-5) 97.7 [degF] Oxygen Saturation (95031-2) 99 % Respiratory Rate (9279-1) 17 /min Heart Rate (8867-4) 60 /min Blood Pressure Systolic (8480-6) 116 mm[Hg] Blood Pressure Diastolic (8462-4) 62 mm[Hg] 08/01/2024 06:44 PM Blood Pressure Systolic (8480-6) 1 30 mm[Hg] Blood Pressure Diastolic (8462-4) 70 mm[Hg] 08/01/2024 09:41 PM Temperature (8310-5) 98 [degF] Oxygen Saturation (40676-0) 95 % Respiratory Rate (9279-1) 20 /min Heart Rate (8867-4) 64 /min 08/02/2024 07:14 AM Blood Pressure Systolic (8480-6) 1 18 mm[Hg] Blood Pressure Diastolic (8462-4) 60 mm[Hg] 08/02/2024 12:53 PM Temperature (8310-5) 98.7 [degF] Oxygen Saturation (20737-6) 94 % Respiratory Rate (9279-1) 19 /min Heart Rate (8867-4) 60 /min Blood Pressure Systolic (8480-6) 118 mm[Hg] Blood Pressure Diastolic (8462-4) 60 mm[Hg] 08/02/2024 07:01 PM Blood Pressure Systolic (8480-6) 1 17 mm[Hg] Blood Pressure Diastolic (8462-4) 57 mm[Hg] 08/02/2024 07:30 PM Temperature (8310-5) 98.1 [degF] Oxygen Saturation (73118-3) 96 % Respiratory Rate (9279-1) 17 /min Heart Rate (8867-4) 59 /min 08/03/2024 10:43 AM Temperature (8310-5) 98.5 [degF] Oxygen Saturation (73584-7) 98 % Respiratory Rate (9279-1) 16 /min Heart Rate (8867-4) 86 /min Blood Pressure Systolic (8480-6) 142 mm[Hg] Blood Pressure Diastolic (8462-4) 92 mm[Hg] 08/03/2024 10:24 AM Blood Pressure Systolic (8480-6) 1 41 mm[Hg] Blood Pressure Diastolic (8462-4) 76 mm[Hg] 08/03/2024 07:19 PM Temperature (8310-5) 98.4 [degF] Oxygen Saturation (00556-7) 95 % Respiratory Rate (9279-1) 16 /min Heart Rate (8867-4) 66 /min 08/03/2024 06:56 PM Blood Pressure Systolic (8480-6) 1 25 mm[Hg] Blood Pressure Diastolic (8462-4) 70 mm[Hg] 08/04/2024 01:52 PM Temperature (8310-5) 96.8 [degF] Oxygen Saturation (82793-2) 99 % Respiratory Rate (9279-1) 16 /min Heart Rate (8867-4) 69 /min 08/04/2024 10:06 AM Blood Pressure Systolic (8480-6) 1 11 mm[Hg] Blood Pressure Diastolic (8462-4) 77 mm[Hg] 08/04/2024 08:47 PM Temperature (8310-5) 98.9 [degF] Oxygen Saturation (62706-3) 94 % Respiratory Rate (9279-1) 20 /min Heart Rate (8867-4) 64 /min Blood Pressure Systolic (8480-6) 128 mm[Hg] Blood Pressure Diastolic (8462-4) 68 mm[Hg] 08/05/2024 09:05 AM Blood Pressure Systolic (8480-6) 1 18 mm[Hg] Blood Pressure Diastolic (8462-4) 60 mm[Hg] 08/05/2024 09:55 AM Temperature (8310-5) 98.6 [degF] Oxygen Saturation (31636-2) 96 % Respiratory Rate (9279-1) 18 /min Heart Rate (8867-4) 76 /min 08/06/2024 12:18 AM Temperature (8310-5) 98 [degF] Oxygen Saturation (24063-0) 95 % Respiratory Rate (9279-1) 16 /min Heart Rate (8867-4) 70 /min Blood Pressure Systolic (8480-6) 112 mm[Hg] Blood Pressure Diastolic (8462-4) 80 mm[Hg] 08/05/2024 11:36 PM Blood Pressure Systolic (8480-6) 1 40 mm[Hg] Blood Pressure Diastolic (8462-4) 78 mm[Hg] 08/06/2024 07:21 AM Blood Pressure Systolic (8480-6) 1 32 mm[Hg] Blood Pressure Diastolic (8462-4) 63 mm[Hg] 08/06/2024 03:06 PM Temperature (8310-5) 97.5 [degF] Oxygen Saturation (28674-7) 93 % Respiratory Rate (9279-1) 18 /min Heart Rate (8867-4) 60 /min Blood Pressure Systolic (8480-6) 132 mm[Hg] Blood Pressure Diastolic (8462-4) 63 mm[Hg] 08/06/2024 07:36 PM Temperature (8310-5) 98.8 [degF] Oxygen Saturation (06669-3) 94 % Respiratory Rate (9279-1) 21 /min Heart Rate (8867-4) 80 /min Blood Pressure Systolic (8480-6) 129 mm[Hg] Blood Pressure Diastolic (8462-4) 77 mm[Hg] 08/07/2024 08:45 AM Blood Pressure Systolic (8480-6) 1 10 mm[Hg] Blood Pressure Diastolic (8462-4) 61 mm[Hg] 08/07/2024 11:32 AM Temperature (8310-5) 97.8 [degF] Oxygen Saturation (72131-1) 94 % Respiratory Rate (9279-1) 19 /min Heart Rate (8867-4) 60 /min Blood Pressure Systolic (8480-6) 110 mm[Hg] Blood Pressure Diastolic (8462-4) 61 mm[Hg] 08/07/2024 08:29 PM Blood Pressure Systolic (8480-6) 1 04 mm[Hg] Blood Pressure Diastolic (8462-4) 63 mm[Hg] 08/07/2024 08:30 PM Temperature (8310-5) 98.3 [degF] Oxygen Saturation (12243-1) 90 % Respiratory Rate (9279-1) 16 /min Heart Rate (8867-4) 75 /min Blood Pressure Systolic (8480-6) 104 mm[Hg] Blood Pressure Diastolic (8462-4) 63 mm[Hg] 08/08/2024 08:33 AM Temperature (8310-5) 98 [degF] Oxygen Saturation (14285-3) 98 % Respiratory Rate (9279-1) 16 /min Heart Rate (8867-4) 57 /min Blood Pressure Systolic (8480-6) 130 mm[Hg] Blood Pressure Diastolic (8462-4) 53 mm[Hg] 08/08/2024 06:47 AM Blood Pressure Systolic (8480-6) 1 30 mm[Hg] Blood Pressure Diastolic (8462-4) 53 mm[Hg] 08/08/2024 07:13 PM Temperature (8310-5) 98.2 [degF] Oxygen Saturation (50426-5) 96 % Respiratory Rate (9279-1) 15 /min Heart Rate (8867-4) 82 /min 08/08/2024 06:52 PM Blood Pressure Systolic (8480-6) 1 17 mm[Hg] Blood Pressure Diastolic (8462-4) 67 mm[Hg] 08/09/2024 09:20 AM Temperature (8310-5) 97.9 [degF] Oxygen Saturation (77202-3) 98 % Respiratory Rate (9279-1) 16 /min Heart Rate (8867-4) 62 /min Blood Pressure Systolic (8480-6) 107 mm[Hg] Blood Pressure Diastolic (8462-4) 58 mm[Hg] 08/09/2024 07:50 AM Blood Pressure Systolic (8480-6) 1 07 mm[Hg] Blood Pressure Diastolic (8462-4) 58 mm[Hg] 08/09/2024 06:28 PM Blood Pressure Systolic (8480-6) 1 15 mm[Hg] Blood Pressure Diastolic (8462-4) 76 mm[Hg] 08/09/2024 06:56 PM Temperature (8310-5) 96.9 [degF] Oxygen Saturation (51346-0) 97 % Respiratory Rate (9279-1) 15 /min Heart Rate (8867-4) 66 /min 08/10/2024 09:10 AM Blood Pressure Systolic (8480-6) 1 28 mm[Hg] Blood Pressure Diastolic (8462-4) 63 mm[Hg] 08/10/2024 09:27 AM Temperature (8310-5) 97.8 [degF] Oxygen Saturation (84249-0) 99 % Respiratory Rate (9279-1) 20 /min Heart Rate (8867-4) 86 /min 08/10/2024 06:59 PM Temperature (8310-5) 97.1 [degF] Oxygen Saturation (70739-3) 90 % Respiratory Rate (9279-1) 16 /min Heart Rate (8867-4) 64 /min 08/10/2024 06:39 PM Blood Pressure Systolic (8480-6) 1 18 mm[Hg] Blood Pressure Diastolic (8462-4) 69 mm[Hg] 08/11/2024 08:19 AM Blood Pressure Systolic (8480-6) 1 21 mm[Hg] Blood Pressure Diastolic (8462-4) 74 mm[Hg] 08/11/2024 11:09 AM Temperature (8310-5) 97.2 [degF] Oxygen Saturation (72282-5) 97 % Respiratory Rate (9279-1) 15 /min Heart Rate (8867-4) 68 /min Blood Pressure Systolic (8480-6) 120 mm[Hg] Blood Pressure Diastolic (8462-4) 63 mm[Hg] 08/11/2024 11:50 PM Blood Pressure Systolic (8480-6) 1 40 mm[Hg] Blood Pressure Diastolic (8462-4) 78 mm[Hg] 08/12/2024 07:21 AM Blood Pressure Systolic (8480-6) 1 19 mm[Hg] Blood Pressure Diastolic (8462-4) 61 mm[Hg] 08/12/2024 10:07 AM Temperature (8310-5) 97.9 [degF] Oxygen Saturation (06916-2) 96 % Respiratory Rate (9279-1) 18 /min Heart Rate (8867-4) 61 /min Blood Pressure Systolic (8480-6) 119 mm[Hg] Blood Pressure Diastolic (8462-4) 61 mm[Hg] 08/12/2024 10:00 PM Blood Pressure Systolic (8480-6) 1 22 mm[Hg] Blood Pressure Diastolic (8462-4) 77 mm[Hg] 08/13/2024 08:20 AM Blood Pressure Systolic (8480-6) 1 21 mm[Hg] Blood Pressure Diastolic (8462-4) 52 mm[Hg] 08/13/2024 03:14 AM Temperature (8310-5) 97 [degF] Oxygen Saturation (93650-4) 95 % Respiratory Rate (9279-1) 18 /min Heart Rate (8867-4) 88 /min Blood Pressure Systolic (8480-6) 120 mm[Hg] Blood Pressure Diastolic (8462-4) 78 mm[Hg] 08/13/2024 10:17 AM Temperature (8310-5) 98.8 [degF] Oxygen Saturation (00601-7) 96 % Respiratory Rate (9279-1) 13 /min Heart Rate (8867-4) 56 /min 08/14/2024 12:36 AM Temperature (8310-5) 98.4 [degF] Oxygen Saturation (23037-0) 95 % Respiratory Rate (9279-1) 16 /min Heart Rate (8867-4) 66 /min Blood Pressure Systolic (8480-6) 124 mm[Hg] Blood Pressure Diastolic (8462-4) 80 mm[Hg] 08/13/2024 10:29 PM Blood Pressure Systolic (8480-6) 1 25 mm[Hg] Blood Pressure Diastolic (8462-4) 78 mm[Hg] 08/14/2024 09:11 AM Temperature (8310-5) 97.8 [degF] Oxygen Saturation (69656-7) 97 % Respiratory Rate (9279-1) 19 /min Heart Rate (8867-4) 61 /min Blood Pressure Systolic (8480-6) 124 mm[Hg] Blood Pressure Diastolic (8462-4) 71 mm[Hg] 08/14/2024 08:12 AM Blood Pressure Systolic (8480-6) 1 27 mm[Hg] Blood Pressure Diastolic (8462-4) 63 mm[Hg] 08/14/2024 07:41 PM Blood Pressure Systolic (8480-6) 1 02 mm[Hg] Blood Pressure Diastolic (8462-4) 85 mm[Hg] 08/14/2024 06:22 PM Temperature (8310-5) 98.3 [degF] Oxygen Saturation (19389-0) 99 % Respiratory Rate (9279-1) 18 /min Heart Rate (8867-4) 60 /min Blood Pressure Systolic (8480-6) 102 mm[Hg] Blood Pressure Diastolic (8462-4) 85 mm[Hg] 08/15/2024 09:53 AM Blood Pressure Systolic (8480-6) 1 68 mm[Hg] Blood Pressure Diastolic (8462-4) 77 mm[Hg] 08/15/2024 09:54 AM Temperature (8310-5) 98.6 [degF] Oxygen Saturation (48342-9) 99 % Respiratory Rate (9279-1) 16 /min Heart Rate (8867-4) 64 /min 08/15/2024 06:57 PM Blood Pressure Systolic (8480-6) 1 40 mm[Hg] Blood Pressure Diastolic (8462-4) 70 mm[Hg] 08/15/2024 09:12 PM Temperature (8310-5) 97.5 [degF] Oxygen Saturation (80198-5) 95 % Respiratory Rate (9279-1) 62 /min Heart Rate (8867-4) 22 /min 08/16/2024 08:52 AM Temperature (8310-5) 97.9 [degF] Oxygen Saturation (86336-7) 99 % Respiratory Rate (9279-1) 16 /min Heart Rate (8867-4) 61 /min Blood Pressure Systolic (8480-6) 133 mm[Hg] Blood Pressure Diastolic (8462-4) 86 mm[Hg] 08/16/2024 07:42 AM Blood Pressure Systolic (8480-6) 1 32 mm[Hg] Blood Pressure Diastolic (8462-4) 71 mm[Hg] 08/16/2024 06:49 PM Blood Pressure Systolic (8480-6) 1 49 mm[Hg] Blood Pressure Diastolic (8462-4) 81 mm[Hg] 08/16/2024 07:55 PM Temperature (8310-5) 98.6 [degF] Oxygen Saturation (16697-4) 96 % Respiratory Rate (9279-1) 20 /min Heart Rate (8867-4) 65 /min 08/17/2024 06:43 PM Blood Pressure Systolic (8480-6) 1 25 mm[Hg] Blood Pressure Diastolic (8462-4) 74 mm[Hg] 08/17/2024 07:05 PM Temperature (8310-5) 97.2 [degF] Oxygen Saturation (08436-2) 92 % Respiratory Rate (9279-1) 17 /min Heart Rate (8867-4) 65 /min 08/17/2024 05:58 PM Temperature (8310-5) 97.8 [degF] Oxygen Saturation (78926-7) 96 % Respiratory Rate (9279-1) 18 /min Heart Rate (8867-4) 63 /min Blood Pressure Systolic (8480-6) 112 mm[Hg] Blood Pressure Diastolic (8462-4) 70 mm[Hg] 08/18/2024 09:00 AM Temperature (8310-5) 97.7 [degF] Oxygen Saturation (50867-3) 97 % Respiratory Rate (9279-1) 14 /min Heart Rate (8867-4) 60 /min Blood Pressure Systolic (8480-6) 132 mm[Hg] Blood Pressure Diastolic (8462-4) 78 mm[Hg] 08/18/2024 07:21 AM Blood Pressure Systolic (8480-6) 8 9 mm[Hg] Blood Pressure Diastolic (8462-4) 44 mm[Hg] 08/18/2024 08:29 PM Blood Pressure Systolic (8480-6) 1 29 mm[Hg] Blood Pressure Diastolic (8462-4) 68 mm[Hg] 08/18/2024 10:12 PM Temperature (8310-5) 98.2 [degF] Oxygen Saturation (46283-6) 96 % Respiratory Rate (9279-1) 21 /min Heart Rate (8867-4) 70 /min Blood Pressure Systolic (8480-6) 124 mm[Hg] Blood Pressure Diastolic (8462-4) 95 mm[Hg] 08/19/2024 08:05 AM Blood Pressure Systolic (8480-6) 1 32 mm[Hg] Blood Pressure Diastolic (8462-4) 78 mm[Hg] 08/19/2024 12:58 PM Temperature (8310-5) 97.6 [degF] Oxygen Saturation (72548-4) 98 % Respiratory Rate (9279-1) 18 /min Heart Rate (8867-4) 71 /min 08/19/2024 08:00 PM Temperature (8310-5) 98 [degF] Oxygen Saturation (72795-3) 97 % Respiratory Rate (9279-1) 18 /min Heart Rate (8867-4) 80 /min Blood Pressure Systolic (8480-6) 124 mm[Hg] Blood Pressure Diastolic (8462-4) 68 mm[Hg] 08/20/2024 07:53 AM Blood Pressure Systolic (8480-6) 1 48 mm[Hg] Blood Pressure Diastolic (8462-4) 63 mm[Hg] 08/20/2024 10:35 AM Temperature (8310-5) 97.8 [degF] Oxygen Saturation (05820-5) 95 % Respiratory Rate (9279-1) 19 /min Heart Rate (8867-4) 60 /min 08/20/2024 08:08 PM Blood Pressure Systolic (8480-6) 1 33 mm[Hg] Blood Pressure Diastolic (8462-4) 80 mm[Hg] 08/20/2024 08:09 PM Temperature (8310-5) 98.7 [degF] Oxygen Saturation (81936-1) 96 % Respiratory Rate (9279-1) 23 /min Heart Rate (8867-4) 67 /min 08/21/2024 08:21 AM Temperature (8310-5) 97 [degF] Oxygen Saturation (99772-8) 96 % Respiratory Rate (9279-1) 18 /min Heart Rate (8867-4) 60 /min 08/21/2024 06:39 AM Blood Pressure Systolic (8480-6) 1 41 mm[Hg] Blood Pressure Diastolic (8462-4) 62 mm[Hg] 08/21/2024 07:47 PM Temperature (8310-5) 97.1 [degF] Oxygen Saturation (15191-0) 98 % Respiratory Rate (9279-1) 15 /min Heart Rate (8867-4) 67 /min Blood Pressure Systolic (8480-6) 119 mm[Hg] Blood Pressure Diastolic (8462-4) 67 mm[Hg] 08/22/2024 07:01 AM Blood Pressure Systolic (8480-6) 1 42 mm[Hg] Blood Pressure Diastolic (8462-4) 77 mm[Hg] 08/22/2024 08:38 AM Temperature (8310-5) 98.4 [degF] Oxygen Saturation (05819-2) 98 % Respiratory Rate (9279-1) 15 /min Heart Rate (8867-4) 59 /min Blood Pressure Systolic (8480-6) 134 mm[Hg] Blood Pressure Diastolic (8462-4) 67 mm[Hg] 08/22/2024 06:57 PM Blood Pressure Systolic (8480-6) 1 42 mm[Hg] Blood Pressure Diastolic (8462-4) 77 mm[Hg] 08/22/2024 07:28 PM Temperature (8310-5) 97.6 [degF] Oxygen Saturation (67658-0) 96 % Respiratory Rate (9279-1) 15 /min Heart Rate (8867-4) 70 /min 08/23/2024 07:29 AM Blood Pressure Systolic (8480-6) 1 21 mm[Hg] Blood Pressure Diastolic (8462-4) 72 mm[Hg] 08/23/2024 03:26 PM Temperature (8310-5) 97.8 [degF] Oxygen Saturation (29132-3) 95 % Respiratory Rate (9279-1) 18 /min Heart Rate (8867-4) 63 /min Blood Pressure Systolic (8480-6) 121 mm[Hg] Blood Pressure Diastolic (8462-4) 50 mm[Hg] 08/23/2024 10:39 PM Temperature (8310-5) 97.5 [degF] Oxygen Saturation (60319-8) 97 % Respiratory Rate (9279-1) 18 /min Heart Rate (8867-4) 61 /min 08/23/2024 07:03 PM Blood Pressure Systolic (8480-6) 1 38 mm[Hg] Blood Pressure Diastolic (8462-4) 99 mm[Hg] 08/24/2024 06:49 AM Blood Pressure Systolic (8480-6) 1 38 mm[Hg] Blood Pressure Diastolic (8462-4) 74 mm[Hg] 08/24/2024 05:31 PM Temperature (8310-5) 98 [degF] Oxygen Saturation (33857-2) 94 % Respiratory Rate (9279-1) 16 /min Heart Rate (8867-4) 59 /min Blood Pressure Systolic (8480-6) 138 mm[Hg] Blood Pressure Diastolic (8462-4) 74 mm[Hg] 08/24/2024 08:02 PM Temperature (8310-5) 98 [degF] Oxygen Saturation (78802-1) 94 % Respiratory Rate (9279-1) 15 /min Heart Rate (8867-4) 58 /min Blood Pressure Systolic (8480-6) 106 mm[Hg] Blood Pressure Diastolic (8462-4) 57 mm[Hg] 08/25/2024 11:30 AM Blood Pressure Systolic (8480-6) 1 35 mm[Hg] Blood Pressure Diastolic (8462-4) 86 mm[Hg] 08/25/2024 11:47 AM Temperature (8310-5) 98.9 [degF] Oxygen Saturation (45345-9) 96 % Respiratory Rate (9279-1) 17 /min Heart Rate (8867-4) 62 /min 08/25/2024 07:04 PM Blood Pressure Systolic (8480-6) 9 6 mm[Hg] Blood Pressure Diastolic (8462-4) 56 mm[Hg] 08/25/2024 09:16 PM Temperature (8310-5) 98.6 [degF] Oxygen Saturation (93463-7) 96 % Respiratory Rate (9279-1) 20 /min Heart Rate (8867-4) 57 /min 08/26/2024 08:00 AM Temperature (8310-5) 97.7 [degF] Oxygen Saturation (16495-6) 97 % Respiratory Rate (9279-1) 17 /min Heart Rate (8867-4) 60 /min Blood Pressure Systolic (8480-6) 142 mm[Hg] Blood Pressure Diastolic (8462-4) 78 mm[Hg] 08/26/2024 08:48 PM Temperature (8310-5) 98.6 [degF] Oxygen Saturation (89880-3) 96 % Respiratory Rate (9279-1) 18 /min Heart Rate (8867-4) 65 /min Blood Pressure Systolic (8480-6) 124 mm[Hg] Blood Pressure Diastolic (8462-4) 65 mm[Hg] 08/27/2024 08:07 AM Temperature (8310-5) 98 [degF] Oxygen Saturation (78968-0) 96 % Respiratory Rate (9279-1) 14 /min Heart Rate (8867-4) 54 /min 08/27/2024 07:09 AM Blood Pressure Systolic (8480-6) 1 06 mm[Hg] Blood Pressure Diastolic (8462-4) 52 mm[Hg] 08/26/2024 07:21 PM Blood Pressure Systolic (8480-6) 1 24 mm[Hg] Blood Pressure Diastolic (8462-4) 65 mm[Hg] 08/27/2024 08:43 PM Blood Pressure Systolic (8480-6) 1 13 mm[Hg] Blood Pressure Diastolic (8462-4) 58 mm[Hg] 08/28/2024 12:23 AM Temperature (8310-5) 98.5 [degF] Oxygen Saturation (14772-6) 95 % Respiratory Rate (9279-1) 18 /min Heart Rate (8867-4) 61 /min Blood Pressure Systolic (8480-6) 117 mm[Hg] Blood Pressure Diastolic (8462-4) 62 mm[Hg] 08/28/2024 09:33 AM Temperature (8310-5) 98.3 [degF] Oxygen Saturation (66249-0) 94 % Respiratory Rate (9279-1) 17 /min Heart Rate (8867-4) 57 /min 08/28/2024 08:22 AM Blood Pressure Systolic (8480-6) 1 32 mm[Hg] Blood Pressure Diastolic (8462-4) 52 mm[Hg] 08/28/2024 07:12 PM Blood Pressure Systolic (8480-6) 1 10 mm[Hg] Blood Pressure Diastolic (8462-4) 65 mm[Hg] 08/28/2024 07:21 PM Temperature (8310-5) 97.3 [degF] Oxygen Saturation (32694-3) 90 % Respiratory Rate (9279-1) 15 /min Heart Rate (8867-4) 69 /min 08/29/2024 03:14 PM Oxygen Saturation (48202-4) 91 % 08/29/2024 10:09 AM Blood Pressure Systolic (8480-6) 1 28 mm[Hg] Blood Pressure Diastolic (8462-4) 68 mm[Hg] 08/29/2024 03:13 PM Temperature (8310-5) 97.7 [degF] Respiratory Rate (9279-1) 16 /min Heart Rate (8867-4) 60 /min Blood Pressure Systolic (8480-6) 128 mm[Hg] Blood Pressure Diastolic (8462-4) 68 mm[Hg] 08/29/2024 07:34 PM Blood Pressure Systolic (8480-6) 1 24 mm[Hg] Blood Pressure Diastolic (8462-4) 69 mm[Hg] 08/29/2024 09:37 PM Temperature (8310-5) 97.4 [degF] Oxygen Saturation (00978-6) 95 % Respiratory Rate (9279-1) 16 /min Heart Rate (8867-4) 55 /min Blood Pressure Systolic (8480-6) 124 mm[Hg] Blood Pressure Diastolic (8462-4) 69 mm[Hg] 08/30/2024 09:12 AM Temperature (8310-5) 97.2 [degF] Oxygen Saturation (70265-1) 96 % Respiratory Rate (9279-1) 16 /min Heart Rate (8867-4) 52 /min Blood Pressure Systolic (8480-6) 131 mm[Hg] Blood Pressure Diastolic (8462-4) 66 mm[Hg] 08/30/2024 07:35 AM Blood Pressure Systolic (8480-6) 1 31 mm[Hg] Blood Pressure Diastolic (8462-4) 66 mm[Hg] 08/30/2024 11:24 PM Temperature (8310-5) 97.6 [degF] Oxygen Saturation (25711-4) 95 % Respiratory Rate (9279-1) 16 /min Heart Rate (8867-4) 56 /min 08/30/2024 06:54 PM Blood Pressure Systolic (8480-6) 1 26 mm[Hg] Blood Pressure Diastolic (8462-4) 81 mm[Hg] 08/31/2024 07:51 AM Blood Pressure Systolic (8480-6) 1 38 mm[Hg] Blood Pressure Diastolic (8462-4) 98 mm[Hg] 08/31/2024 08:27 AM Temperature (8310-5) 98.2 [degF] Oxygen Saturation (96343-6) 95 % Respiratory Rate (9279-1) 18 /min Heart Rate (8867-4) 62 /min Body Weight (18238-8) 108.6 [lb_av] Body Mass Index (12929-7) 21.21 kg/m2 08/31/2024 06:21 PM Blood Pressure Systolic (8480-6) 1 12 mm[Hg] Blood Pressure Diastolic (8462-4) 66 mm[Hg] 08/31/2024 07:20 PM Temperature (8310-5) 97.9 [degF] Oxygen Saturation (02880-6) 93 % Respiratory Rate (9279-1) 18 /min Heart Rate (8867-4) 60 /min Blood Pressure Systolic (8480-6) 112 mm[Hg] Blood Pressure Diastolic (8462-4) 66 mm[Hg] 09/01/2024 08:49 AM Blood Pressure Systolic (8480-6) 1 08 mm[Hg] Blood Pressure Diastolic (8462-4) 68 mm[Hg] 09/01/2024 12:47 PM Temperature (8310-5) 98 [degF] Oxygen Saturation (52196-6) 94 % Respiratory Rate (9279-1) 18 /min Heart Rate (8867-4) 64 /min 09/01/2024 11:04 PM Oxygen Saturation (66737-4) 97 % 09/01/2024 11:03 PM Temperature (8310-5) 97 [degF] Respiratory Rate (9279-1) 16 /min Heart Rate (8867-4) 68 /min 09/01/2024 11:02 PM Blood Pressure Systolic (8480-6) 1 43 mm[Hg] Blood Pressure Diastolic (8462-4) 66 mm[Hg] 09/02/2024 09:22 AM Blood Pressure Systolic (8480-6) 1 75 mm[Hg] Blood Pressure Diastolic (8462-4) 93 mm[Hg] 09/02/2024 03:08 PM Body Weight (52820-5) 104.8 [lb_av ] Body Mass Index (49450-0) 20.47 kg/m2 09/02/2024 12:39 PM Temperature (8310-5) 98.2 [degF] Oxygen Saturation (25963-8) 96 % Respiratory Rate (9279-1) 17 /min Heart Rate (8867-4) 84 /min 09/02/2024 11:14 PM Temperature (8310-5) 97 [degF] Oxygen Saturation (07804-2) 96 % Respiratory Rate (9279-1) 16 /min Heart Rate (8867-4) 77 /min Blood Pressure Systolic (8480-6) 124 mm[Hg] Blood Pressure Diastolic (8462-4) 66 mm[Hg] 09/02/2024 11:11 PM Blood Pressure Systolic (8480-6) 1 24 mm[Hg] Blood Pressure Diastolic (8462-4) 68 mm[Hg] 09/03/2024 07:06 AM Blood Pressure Systolic (8480-6) 1 36 mm[Hg] Blood Pressure Diastolic (8462-4) 72 mm[Hg] 09/03/2024 10:23 AM Temperature (8310-5) 98.4 [degF] Oxygen Saturation (70868-2) 94 % Respiratory Rate (9279-1) 17 /min Heart Rate (8867-4) 60 /min Blood Pressure Systolic (8480-6) 136 mm[Hg] Blood Pressure Diastolic (8462-4) 72 mm[Hg] 09/03/2024 11:42 PM Temperature (8310-5) 98 [degF] Respiratory Rate (9279-1) 16 /min Heart Rate (8867-4) 70 /min Blood Pressure Systolic (8480-6) 125 mm[Hg] Blood Pressure Diastolic (8462-4) 88 mm[Hg] 09/03/2024 11:01 PM Blood Pressure Systolic (8480-6) 1 34 mm[Hg] Blood Pressure Diastolic (8462-4) 75 mm[Hg] 09/04/2024 08:42 AM Blood Pressure Systolic (8480-6) 1 23 mm[Hg] Blood Pressure Diastolic (8462-4) 56 mm[Hg] 09/04/2024 09:23 AM Temperature (8310-5) 97.4 [degF] Oxygen Saturation (04665-1) 95 % Respiratory Rate (9279-1) 16 /min Heart Rate (8867-4) 62 /min Social History No smoking Hx information available Encounters Type CPT Code Date Location Provider Indication s encounter report 07/17/2017 11:35 AM Mary Alvarado DO 01 Advance Directives Directive Description Verification Date Supporting Document(s) Other Directive
[2024-12-05 15:09] VITALS: BP 166/102; PULSE 56; RESP 16; O2SAT 96
[2024-12-05 15:12] LABS: Hematocrit 37.9 % (36-47); Hemoglobin 12.20 g/dL (11.27-16.99); Mean Corpuscular HGB Conc 32.2 g/dL (30-55); Mean Corpuscular Hemoglobin 30.3 pg (27-33); Mean Corpuscular Volume 94.0 fl (85-98); Nucleated Red Blood Cells % 0 %; Platelet Count 202 10^3/cmm (157-399); Red Blood Count 4.03 10^6/uL (3.85-5.65); White Blood Count 5.09 10^3/uL (3.29-11.43)
[2024-12-05 15:19] LABS: Glucose Urine UA Trace (Normal); Nitrate Urine Negative (Negative); Specific Gravity, Urine 1.016 (1.005-1.030)
[2024-12-05 15:21] LABS: Add Urine Microscopic? YES
[2024-12-05 15:22] LABS: Alanine Aminotransferase 33 U/L (0-33); Albumin Level 3.4 g/dL (3.5-5.2); Alkaline Phosphatase 158 U/L (35-105); Anion Gap 14.6 (5-19); Aspartate Amino Transferase 30 U/L (0-32); Blood Urea Nitrogen 31 mg/dL (8-23); Calcium 9.4 mg/dL (8.5-10.5); Carbon Dioxide 29 mmol/L (22-29); Chloride 101 mmol/L (98-107); Creatinine Clr Calc Pharmacy 37.6716; Globulin 3.1 g/dL (1.3-4.6); Glucose 265 mg/dL (65-115); Osmolality Calculated 306 mOsm/kg (285-295); Potassium 4.6 mmol/L (3.5-5.1); Sodium 140 mmol/L (136-145); Total Protein 6.5 g/dL (6.6-8.7)
--- NOTE | 2024-12-05 15:33 | PC.PHAR ---
Addendum entered by Jeanine Valero 12/05/24 16:03: Per Chika FELIX for Mer [facility], pt has been taken off of both insulins, vitamin d3, Collagen, Atorvastatin 10mg, Flonase, Leflunomide 20mg, Melatonin 3mg, Metolazone 5mg, Omeprazole 20mg, Potassium Chl 20meq, Metamucil, Ropinirole 3mg, and Spiriva Respimat 1.25mcg. Removed from chart. Original Note: Pt is from [facility]
[2024-12-05 15:35] LABS: UA Manual Slide Review YES; UA Slide Review UA Slide Review Perf
[2024-12-05 16:00] VITALS: BP 158/74; PULSE 66; O2SAT 97
[2024-12-05] MEDS: cefTRIAXone 1,000 mg SDV 1000 MG IVP (16:24)
--- NOTE | 2024-12-05 17:18 | PC.NURSE ---
this nurse called [facility] and spoke with Gabriella in regards to pt coming back, setting up EMS ride.
--- NOTE | 2024-12-05 19:01 | PC.NURSE ---
PT behaviors. Pt yells out for help when pt sees anyone walk by, then pt states she must get home. Pt here with ams, pt re-educated that we are waiting on ems ride back to [facility].
--- NOTE | 2024-12-05 20:22 | PC.NURSE ---
pt checked and incontinent of bladder, pt changed at 2020.
== END 2024-12-06 08:22 | disposition home or self-care (01) ==
PROVIDERS: Emergency Provider Physician Assistant; PCP Internal Medicine
DX: R82.81 Pyuria (principal); W19.XXXA Unspecified fall, initial encounter; Z79.01 Long term (current) use of anticoagulants; J44.9 Chronic obstructive pulmonary disease, unspecified; E11.9 Type 2 diabetes mellitus without complications; I25.10 Atherosclerotic heart disease of native coronary artery without angina pectoris; I50.9 Heart failure, unspecified
CPT/HCPCS: 70450; 72125; 80053; 81001; 85025; 87077; 87086; 87186; 96361; 96374; 99285; J0696; J7040

== ENCOUNTER 2025-04-28 18:14 | Emergency (ER) | payer MEDICAID, SELFPAY ==
[2025-04-28 18:16] VITALS: BP 141/78; PULSE 60; RESP 18; TEMP 37.1; O2SAT 93; BMI 21.1
--- NOTE | 2025-04-28 18:18 | CTR_ITS ---
PROCEDURE INFORMATION: Exam: CT Head Without Contrast Exam date and time: 04/28/2025 6:42 PM Age: 74 years old Clinical indication: Injury or trauma; Blunt trauma (contusions or hematomas); EMS arrival from [facility] for fall. Hematoma to RT frontal. Anticoagulated. TECHNIQUE: Imaging protocol: Computed tomography of the head without contrast. Radiation optimization: All CT scans at this facility use at least one of these dose optimization techniques: automated exposure control; mA and/or kV adjustment per patient size (includes targeted exams where dose is matched to clinical indication); or iterative reconstruction. COMPARISON: CT head wo con* [id number] 12/05/2024 3:14 PM RADIATION DOSE METRICS: Total DLP (mGy-cm): 1097.85 FINDINGS: Brain: No acute infarct No hemorrhage. No mass effect. Moderate small-vessel ischemic changes and atrophy. Cerebral ventricles: No ventriculomegaly. Paranasal sinuses: Right maxillary sinus disease is noted. Mastoid air cells: Visualized mastoid air cells are well aerated. Bones: Unremarkable. No acute fracture. Soft tissues: Small subcutaneous hematoma in the right forehead. CT/CT head wo con* [id number] IMPRESSION: No acute infarct, mass effect or intracranial hemorrhage.
--- NOTE | 2025-04-28 18:18 | CTR_ITS ---
PROCEDURE INFORMATION: Exam: CT Cervical Spine Without Contrast Exam date and time: 04/28/2025 6:42 PM Age: 74 years old Clinical indication: Injury or trauma; Blunt trauma; EMS arrival from [facility] for fall. Hematoma to RT frontal. Anticoagulated. TECHNIQUE: Imaging protocol: Computed tomography of the cervical spine without contrast. Radiation optimization: All CT scans at this facility use at least one of these dose optimization techniques: automated exposure control; mA and/or kV adjustment per patient size (includes targeted exams where dose is matched to clinical indication); or iterative reconstruction. COMPARISON: CT cervical spin wo con* [id number] 12/05/2024 3:14 PM RADIATION DOSE METRICS: Total DLP (mGy-cm): 152.4 FINDINGS: Bones: No acute fracture. Normal alignment. [id number] spondylosis. Lungs: Lung apices are normal. Soft tissues: Unremarkable. CT/CT cervical spin wo con* [id number] IMPRESSION: No acute fracture.
--- NOTE | 2025-04-28 18:21 | XRR_ITS ---
PROCEDURE INFORMATION: Exam: XR Right Ankle Exam date and time: 04/28/2025 6:47 PM Age: 74 years old Clinical indication: Pain; Ankle; Right; Additional info: RT ankle pain post fall. TECHNIQUE: Imaging protocol: Radiologic exam of the right ankle. Views: 3 or more views. COMPARISON: US CV ankle brachial index [id number] 02/20/2021 10:39 AM FINDINGS: Bones/joints: Osteopenia. Advanced degenerative changes of the ankle joint. Small calcaneal spur. No acute fracture or dislocation. There is no evidence of osteomyelitis. Soft tissues: Dystrophic subcutaneous calcifications in the calf. XR/XR ankle RT min 3V* [id number] IMPRESSION: No acute fracture.
--- OUTSIDE RECORDS SUMMARY | 2025-04-28 18:23 | XMS_ITS | Continuity of Care Document ---
Author Organization [facility] Address [address] [place] [address] Care Team Providers Care Import/Export Specialist Name Role Phone Dr. Sonido Alvarado DO Attending Physician Medications Medication Frequency Instructions Diagnosis Start Date End Date Status Last Administered acetaminophen 500 mg tablet Other 2, oral, Other, 2 tabs q 6hr prn 2023 Active 03/30/2025 04:03 PM amiodarone 100 mg tablet Once A Day 1, oral, Once A Day 2024 Active 04/23/2025 08:57 AM bisacodyl 10 mg suppository Once A Day - PRN 1 suppository, RC, Once A Day - PRN, If no results from [facility]OM. Clinical Indication: Constipation 2022 Active bisacodyl 5 mg tablet,delayed release (/EC) Once A Day - PRN 1 tablet, PO, Once A Day - PRN, Clinical Indication: Constipation 2022 Active 03/05/2025 07:34 PM bumetanide 0.5 mg tablet Once A Day 1 tab, oral, Once A Day I87.303 : Chronic venous hypertension (idiopathic) without complications of bilateral lower extremity 2023 Active 04/23/2025 08:57 AM Eliquis (apixaban) 5 mg tablet Twice A Day 1 tab, oral, Twice A Day I48.0 : Paroxysmal atrial fibrillation 2023 Active 04/23/2025 07:29 PM gentian roly 1 % solution Once A Day apply to buttock, topical, Once A Day, Buttock: Apply to macerated area only around wound bed ensuring not to get into wound 2024 Active 04/23/2025 01:35 PM hydrocodone-ceci taminophen 10-325 mg tablet Every 4 Hours - PRN 1 tab, oral, Every 4 Hours - PRN 2024 Active insulin lispro 100 unit/mL insulin pen With Meals 3 units, subcutaneous, With Meals 2024 Active 04/23/2025 05:30 PM Lantus Solostar U-100 Insulin (insulin glargine) 100 unit/mL (3 mL) insulin pen At Bedtime 6 units, subcutaneous, At Bedtime 2024 Active 04/23/2025 07:29 PM magnesium oxide 400 mg (241.3 mg magnesium) tablet Once A Day 1 tab, oral, Once A Day 2022 Active 04/23/2025 08:57 AM metoprolol tartrate 25 mg tablet Twice A Day 1 tab, oral, Twice A Day I13.0 : 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 4 chronic kidney disease, or unspecified chronic kidney disease 2023 Active 04/23/2025 07:29 PM naloxone 0.4 mg/mL solution As Needed 0.4mg, injection, As Needed, Administer IM in deltoid or thigh; may repeat every 3-5 x3 doses, and call 911 if no response 2022 Active nystatin 100,000 unit/gram powder As Needed 1 gm, topical, As Needed, apply to skin folds and affected areas PRN bid 2023 Active 05/08/2024 07:19 PM nystatin 100,000 unit/gram cream Every Shift 1 aashish, topical, Every Shift, Apply once per shift under both breasts and abdominal folds until healed 2024 Active 04/23/2025 06:20 PM omeprazole 40 mg capsule,delayed release(DR/EC) Twice A Day 1 cap, oral, Twice A Day 2023 Active 04/23/2025 03:56 PM ondansetron 4 mg tablet,disinteg rating Every 6 Hours - PRN 1, oral, Every 6 Hours - PRN, Clinical Indication: Nausea/Vomitin g 2023 Active 04/20/2025 04:19 PM Refresh Lacri-Lube (white petrolatum-mine ral oil) 56.8-42.5 % ointment At Bedtime 1/4 inch, both eyes, At Bedtime H04.123 : Dry eye syndrome of bilateral lacrimal glands 2024 Active 04/23/2025 06:20 PM Refresh Liquigel (carboxymethylc ellulose sodium) 1 % drops, liquid gel Twice A Day 1 gtt, ophthalmic (eye), Twice A Day, od/os BID 2023 Active 04/23/2025 06:20 PM Zoloft (sertraline) 25 mg tablet At Bedtime 3 tabs= 75 mg, oral, At Bedtime 2024 Active 04/23/2025 07:29 PM hydrocodone-ceci taminophen 10-325 mg tablet Every 4 Hours - PRN 1 tab, oral, Every 4 Hours - PRN 04/23 Not Active 04/23/2025 01:32 PM Novolog FlexPen U-100 Insulin (insulin aspart u-100) 100 unit/mL (3 mL) insulin pen With Meals 3 units, subcutaneous, With Meals 03/26 Not Active 03/25/2025 10:34 PM Zoloft (sertraline) 50 mg tablet At Bedtime 1 tab, oral, At Bedtime, clinical indication: anxiety/depres georgi 04/12 Not Active 04/11/2025 06:30 PM Problems Code Type Problem ICD Code Effective Date Status ICD-10 Rheumatoid arthritis, unspecified M06.9 Active ICD-10 Other chronic pain G89.29 07/17/2017 Active ICD-10 Cognitive communication deficit R41.841 02/02 Active ICD-10 Type 2 diabetes eleuterio itus with diabetic peripheral angiopathy without gangrene E11.51 09/27/2023 A ctive ICD-10 care home (current) use of anticoagulants Z79.0 1 09/27/2023 Active ICD-10 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 E11.22 05/06/2021 Active ICD-10 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, bilateral E11.3293 11/27/2022 Active ICD-10 care home (current) use of insulin Z79.4 0 01/15/2025 Active ICD-10 Chronic venous hyper tension (idiopathic) without complications of bilateral lower extremity I87.303 02/04/2021 Active ICD-10 Chronic kidney disease, stage 3b N18.32 Active ICD-10 Paroxysmal atrial fibrillation I48.0 09/26 Active ICD-10 Hypertensive heart a nd chronic kidney disease with heart failure and stage 1 through stage 4 chronic kidney disease, or unspecified chronic kidney disease I13.0 05/05/2022 Activ e ICD-10 Heart failure, unspecified I50.9 8 Active ICD-10 Depression, unspecified F32.A 08/11/2024 A ctive ICD-10 Anxiety disorder, unspecified F41.9 2024 Active ICD-10 Unspecified osteoarthritis, unspecified site M1 9.90 04/02/2023 Active ICD-10 Pressure ulcer of sacral region, unstageable L8 9.150 01/22/2025 Active ICD-10 Gastro-esophageal re flux disease without esophagitis K21.9 07/17/2017 Active ICD-10 Constipation, unspecified K59.00 03/13/2020 Active ICD-10 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 09/27/2023 Active ICD-10 Dry eye syndrome of bilateral lacrimal glands H04.123 02/13/2022 Active ICD-10 Nonscarring hair loss, unspecified L65.9 1 06/09/2022 Active Current Allergies and Intolerances Category Substance Type Reaction Severity Begin Date Status Drug allergy Penicillins (PCN) Allergy 9 Active Food allergy Raspberry Allergy 08/22/2018 Active Vital Signs Height: 60.0 in Date / Time Temperature Pulse (per minute) Respirations (per minute) Systolic BP (mmHg) Diastolic BP (mmHg) O2 Saturation (%) Weight BMI 2024 06:19 PM 127 80 2024 08:57 AM 90 58 2024 06:47 PM 107 60 2024 07:17 AM 93 56 2024 06:32 PM 112 65 12/20/ 2025 10:10 AM 112 52 2024 06:54 PM 113 62 2024 07:24 AM 120 67 2024 06:40 PM 106 76 2024 10:12 AM 100 61 2024 05:40 PM 97.9 F 49 16 95.0 2024 10:07 AM 97.3 F 59 15 93.0 2024 04:54 PM 104.6 lbs 20.4 3 2024 09:39 AM 97.7 F 69 18 93.0 2024 11:07 AM 100.7 F 58 14 93.0 2024 06:27 PM 97.2 F 61 17 96.0 2024 10:04 AM 97.5 F 79 18 96.0 2024 09:51 AM 97.6 F 62 17 94.0 2024 06:38 PM 108.0 lbs 21.0 9 2024 09:05 AM 97.6 F 55 16 97.0 2024 10:00 AM 97.4 F 56 16 98.0 2024 09:21 AM 71 2024 07:50 PM 98.2 F 2024 11:14 AM 16 98.0 2024 06:33 AM 108.4 lbs 21.1 7 Advance Directives Directive Note Full Code Insurance Providers Payer Policy type Group Name Group number Policy ID Address Ph one Medicaid [place] Medicaid ([facility]) [id number] Ph one: Fax: Patient Liability Private Phone: Fax: Private Private Phone: Fax: Private Interest Private Phone: Fax: Immunizations Vaccine Money [employer]er Date Status Dose Series Complete COVID-19 Vaccine 02/15/2025 Completed Unknown Ye s COVID-19 Vaccine Flipswap 24-25 03/01/2024 Completed Unknown COVID-19 Vaccine comirnaty 09/02/2023 Completed 4 COVID-19 Vaccine Pizer Comirnaty 05/04/2023 Completed Unknow n Yes COVID-19 Vaccine Moderna 03/19/2022 Completed Booster Bivalent COVID-19 Vaccine 10/27/2021 Completed Booster 2 COVID-19 Vaccine 10/27/2021 Completed Booster 2 No COVID-19 Vaccine Moderna 03/21/2021 Completed Booster Desmond s COVID-19 Vaccine Moderna 05/27/2020 Completed 2 Ye s COVID-19 Vaccine Moderna 04/29/2020 Completed 1 No Influenza Vaccine Alfuria 02/13/2025 Completed Influenza Vaccine Alfuria Quadrivalent 02/24/2023 Completed Influenza Vaccine Afluria 02/03/2022 Completed Influenza Vaccine Afluria Quad 02/06/2021 Completed Influenza Vaccine 03/06/2020 Completed Influenza Vaccine 02/21/2019 Completed Influenza Vaccine 02/08/2018 Completed Influenza Vaccine 02/15/2024 Refused Influenza Vaccine 02/06/2021 Refused Pneumococcal Vaccine 11/20/2019 Refused Pneumococcal Vaccine 08/23/2018 Refused Pneumococcal Vaccine 12/15/2024 Refused Pneumococcal Vaccine 01/18/2023 Refused Pneumococcal Vaccine 01/22/2022 Refused Pneumococcal Vaccine 08/23/2020 Refused RSV Vaccine Pfizer 02/25/2023 Completed Procedures Not available for this record Results Name Date Time Positive/Negative Value Unit Range Blood Sugar 04/23/2025 06:26 PM 198.0 mg/dL Blood Sugar 04/23/2025 04:26 PM 185.0 mg/dL Blood Sugar 04/23/2025 11:17 AM 177.0 mg/dL Blood Sugar 04/23/2025 08:57 AM 176.0 mg/dL Blood Sugar 04/22/2025 08:31 PM 288.0 mg/dL Blood Sugar 04/22/2025 03:00 PM 307.0 mg/dL Blood Sugar 04/22/2025 11:18 AM 169.0 mg/dL Blood Sugar 04/22/2025 07:18 AM 137.0 mg/dL Blood Sugar 04/21/2025 07:33 PM 111.0 mg/dL Blood Sugar 04/21/2025 04:26 PM 389.0 mg/dL Blood Sugar 04/21/2025 01:07 PM 156.0 mg/dL Blood Sugar 04/21/2025 09:15 AM 128.0 mg/dL Blood Sugar 04/20/2025 09:44 PM 271.0 mg/dL Blood Sugar 04/20/2025 03:41 PM 208.0 mg/dL Blood Sugar 04/20/2025 10:42 AM 174.0 mg/dL Blood Sugar 04/20/2025 06:54 AM 214.0 mg/dL Blood Sugar 04/19/2025 06:32 PM 350.0 mg/dL Blood Sugar 04/19/2025 05:24 PM 273.0 mg/dL Blood Sugar 04/19/2025 01:46 PM 112.0 mg/dL Blood Sugar 04/19/2025 10:13 AM 181.0 mg/dL Blood Sugar 04/19/2025 10:12 AM 181.0 mg/dL Blood Sugar 04/18/2025 06:17 PM 215.0 mg/dL Blood Sugar 04/18/2025 05:20 PM 195.0 mg/dL Blood Sugar 04/18/2025 12:36 PM 299.0 mg/dL Blood Sugar 04/18/2025 10:30 AM 243.0 mg/dL Blood Sugar 04/17/2025 07:16 PM 194.0 mg/dL Blood Sugar 04/17/2025 05:12 PM 283.0 mg/dL Blood Sugar 04/17/2025 12:45 PM 234.0 mg/dL Blood Sugar 04/17/2025 09:05 AM 142.0 mg/dL Blood Sugar 04/16/2025 06:39 PM 147.0 mg/dL Blood Sugar 04/16/2025 03:49 PM 147.0 mg/dL Blood Sugar 04/16/2025 10:53 AM 143.0 mg/dL Blood Sugar 04/16/2025 07:03 AM 164.0 mg/dL Blood Sugar 04/15/2025 08:08 PM 281.0 mg/dL Blood Sugar 04/15/2025 05:04 PM 174.0 mg/dL Blood Sugar 04/15/2025 11:47 AM 207.0 mg/dL Blood Sugar 04/15/2025 08:25 AM 168.0 mg/dL Blood Sugar 04/14/2025 08:18 PM 258.0 mg/dL Blood Sugar 04/14/2025 03:52 PM 213.0 mg/dL Blood Sugar 04/14/2025 11:04 AM 225.0 mg/dL Blood Sugar 04/14/2025 06:38 AM 222.0 mg/dL Blood Sugar 04/13/2025 08:20 PM 229.0 mg/dL Blood Sugar 04/13/2025 03:46 PM 347.0 mg/dL Blood Sugar 04/13/2025 11:10 AM 252.0 mg/dL Blood Sugar 04/13/2025 06:37 AM 246.0 mg/dL Blood Sugar 04/12/2025 06:54 PM 213.0 mg/dL Blood Sugar 04/12/2025 11:44 AM 165.0 mg/dL Blood Sugar 04/12/2025 09:00 AM 92.0 mg/dL Blood Sugar 04/11/2025 06:27 PM 202.0 mg/dL Blood Sugar 04/11/2025 03:47 PM 214.0 mg/dL Blood Sugar 04/11/2025 12:09 PM 232.0 mg/dL Blood Sugar 04/11/2025 06:46 AM 127.0 mg/dL Blood Sugar 04/10/2025 07:13 PM 387.0 mg/dL Blood Sugar 04/10/2025 04:11 PM 269.0 mg/dL Blood Sugar 04/10/2025 11:23 AM 173.0 mg/dL Blood Sugar 04/10/2025 09:17 AM 101.0 mg/dL Blood Sugar 04/09/2025 06:49 PM 224.0 mg/dL Blood Sugar 04/09/2025 05:14 PM 327.0 mg/dL Blood Sugar 04/09/2025 11:21 AM 211.0 mg/dL Blood Sugar 04/09/2025 09:06 AM 120.0 mg/dL Blood Sugar 04/08/2025 08:30 PM 307.0 mg/dL Blood Sugar 04/08/2025 03:48 PM 191.0 mg/dL Blood Sugar 04/08/2025 11:15 AM 306.0 mg/dL Blood Sugar 04/08/2025 06:55 AM 94.0 mg/dL Blood Sugar 04/07/2025 07:32 PM 144.0 mg/dL Blood Sugar 04/07/2025 03:42 PM 119.0 mg/dL Blood Sugar 04/07/2025 10:49 AM 154.0 mg/dL Blood Sugar 04/07/2025 06:52 AM 125.0 mg/dL Blood Sugar 04/06/2025 08:56 PM 151.0 mg/dL Blood Sugar 04/06/2025 03:51 PM 156.0 mg/dL Blood Sugar 04/06/2025 11:34 AM 134.0 mg/dL Blood Sugar 04/06/2025 05:59 AM 198.0 mg/dL Blood Sugar 04/05/2025 06:53 PM 231.0 mg/dL Blood Sugar 04/05/2025 04:53 PM 184.0 mg/dL Blood Sugar 04/05/2025 11:33 AM 189.0 mg/dL Blood Sugar 04/05/2025 09:20 AM 111.0 mg/dL Blood Sugar 04/04/2025 06:35 PM 289.0 mg/dL Blood Sugar 04/04/2025 05:19 PM 252.0 mg/dL Blood Sugar 04/04/2025 02:15 PM 179.0 mg/dL Blood Sugar 04/04/2025 07:24 AM 137.0 mg/dL Blood Sugar 04/03/2025 06:34 PM 274.0 mg/dL Blood Sugar 04/03/2025 06:24 PM 160.0 mg/dL Blood Sugar 04/03/2025 12:32 PM 276.0 mg/dL Blood Sugar 04/03/2025 09:21 AM 114.0 mg/dL Blood Sugar 04/02/2025 06:43 PM 184.0 mg/dL Blood Sugar 04/02/2025 04:32 PM 311.0 mg/dL Blood Sugar 04/02/2025 12:52 PM 77.0 mg/dL Blood Sugar 04/02/2025 06:59 AM 108.0 mg/dL Blood Sugar 04/01/2025 08:56 PM 118.0 mg/dL Blood Sugar 04/01/2025 04:53 PM 129.0 mg/dL Blood Sugar 04/01/2025 11:33 AM 81.0 mg/dL Blood Sugar 04/01/2025 09:16 AM 118.0 mg/dL Blood Sugar 03/31/2025 08:55 PM 228.0 mg/dL Blood Sugar 03/31/2025 04:33 PM 240.0 mg/dL Blood Sugar 03/31/2025 11:44 AM 160.0 mg/dL Blood Sugar 03/31/2025 08:41 AM 106.0 mg/dL Blood Sugar 03/30/2025 09:44 PM 90.0 mg/dL Blood Sugar 03/30/2025 04:03 PM 161.0 mg/dL Blood Sugar 03/30/2025 11:16 AM 106.0 mg/dL Blood Sugar 03/30/2025 06:51 AM 163.0 mg/dL Blood Sugar 03/29/2025 06:15 PM 292.0 mg/dL Blood Sugar 03/29/2025 05:00 PM 147.0 mg/dL Blood Sugar 03/29/2025 12:58 PM 178.0 mg/dL Blood Sugar 03/29/2025 10:21 AM 188.0 mg/dL Blood Sugar 03/28/2025 06:36 PM 107.0 mg/dL Blood Sugar 03/28/2025 04:41 PM 220.0 mg/dL Blood Sugar 03/28/2025 11:45 AM 248.0 mg/dL Blood Sugar 03/28/2025 06:23 AM 166.0 mg/dL Blood Sugar 03/27/2025 06:29 PM 284.0 mg/dL Blood Sugar 03/27/2025 03:54 PM 269.0 mg/dL Blood Sugar 03/27/2025 02:18 PM 155.0 mg/dL Blood Sugar 03/27/2025 06:26 AM 118.0 mg/dL Blood Sugar 03/26/2025 06:50 PM 377.0 mg/dL Blood Sugar 03/26/2025 04:50 PM 253.0 mg/dL Blood Sugar 03/26/2025 08:27 AM 88.0 mg/dL Blood Sugar 03/25/2025 10:33 PM 303.0 mg/dL Blood Sugar 03/25/2025 06:46 AM 149.0 mg/dL Blood Sugar 03/24/2025 11:00 PM 181.0 mg/dL Blood Sugar 03/24/2025 07:23 AM 101.0 mg/dL Blood Sugar 03/23/2025 11:35 PM 186.0 mg/dL Blood Sugar 03/23/2025 06:37 AM 160.0 mg/dL Blood Sugar 03/22/2025 07:35 PM 450.0 mg/dL Blood Sugar 03/22/2025 09:04 AM 127.0 mg/dL Blood Sugar 03/21/2025 06:25 PM 281.0 mg/dL Blood Sugar 03/21/2025 09:31 AM 102.0 mg/dL Blood Sugar 03/20/2025 06:43 PM 318.0 mg/dL Blood Sugar 03/20/2025 08:45 AM 203.0 mg/dL Blood Sugar 03/19/2025 06:45 PM 330.0 mg/dL Blood Sugar 03/19/2025 06:48 AM 205.0 mg/dL Blood Sugar 03/18/2025 07:53 PM 457.0 mg/dL Blood Sugar 03/18/2025 08:48 AM 162.0 mg/dL Blood Sugar 03/17/2025 08:56 PM 501.0 mg/dL Blood Sugar 03/17/2025 08:30 AM 183.0 mg/dL Blood Sugar 03/16/2025 06:35 PM 390.0 mg/dL Blood Sugar 03/16/2025 06:37 AM 270.0 mg/dL Blood Sugar 03/15/2025 06:28 PM 418.0 mg/dL Blood Sugar 03/15/2025 09:46 AM 218.0 mg/dL Blood Sugar 03/14/2025 07:08 PM 318.0 mg/dL Blood Sugar 03/14/2025 06:45 AM 131.0 mg/dL Blood Sugar 03/13/2025 06:25 PM 359.0 mg/dL Blood Sugar 03/13/2025 06:31 AM 215.0 mg/dL Blood Sugar 03/12/2025 06:35 PM 306.0 mg/dL Blood Sugar 03/12/2025 09:00 AM 167.0 mg/dL Blood Sugar 03/11/2025 08:25 PM 296.0 mg/dL Blood Sugar 03/11/2025 09:59 AM 194.0 mg/dL Blood Sugar 03/10/2025 10:35 PM 240.0 mg/dL Blood Sugar 03/10/2025 06:53 AM 145.0 mg/dL Blood Sugar 03/10/2025 01:15 AM 356.0 mg/dL Blood Sugar 03/09/2025 06:29 AM 225.0 mg/dL Blood Sugar 03/08/2025 08:27 PM 433.0 mg/dL Blood Sugar 03/08/2025 07:28 AM 249.0 mg/dL Blood Sugar 03/07/2025 06:21 PM 488.0 mg/dL Blood Sugar 03/07/2025 08:45 AM 239.0 mg/dL Blood Sugar 03/06/2025 07:02 PM 314.0 mg/dL Blood Sugar 03/06/2025 09:37 AM 139.0 mg/dL Blood Sugar 03/05/2025 06:23 PM 339.0 mg/dL Blood Sugar 03/05/2025 09:30 AM 148.0 mg/dL Blood Sugar 03/04/2025 09:09 PM 187.0 mg/dL Blood Sugar 03/04/2025 10:28 AM 138.0 mg/dL Blood Sugar 03/03/2025 11:38 PM 437.0 mg/dL Blood Sugar 03/03/2025 09:00 AM 163.0 mg/dL Blood Sugar 03/02/2025 09:15 PM 185.0 mg/dL Blood Sugar 03/02/2025 06:44 AM 127.0 mg/dL Blood Sugar 03/01/2025 06:40 PM 290.0 mg/dL Blood Sugar 03/01/2025 07:36 AM 177.0 mg/dL Blood Sugar 02/28/2025 09:26 PM 378.0 mg/dL Blood Sugar 02/28/2025 06:31 AM 172.0 mg/dL Blood Sugar 02/27/2025 06:28 PM 339.0 mg/dL Blood Sugar 02/27/2025 06:34 AM 180.0 mg/dL Blood Sugar 02/26/2025 06:21 PM 461.0 mg/dL Blood Sugar 02/26/2025 08:12 AM 116.0 mg/dL Blood Sugar 02/25/2025 07:15 PM 303.0 mg/dL Blood Sugar 02/25/2025 06:48 AM 173.0 mg/dL Blood Sugar 02/24/2025 11:33 PM 250.0 mg/dL Blood Sugar 02/23/2025 07:48 PM 526.0 mg/dL Blood Sugar 02/23/2025 06:42 AM 159.0 mg/dL Blood Sugar 02/22/2025 07:26 PM 415.0 mg/dL Blood Sugar 02/22/2025 06:48 AM 143.0 mg/dL Blood Sugar 02/21/2025 06:29 PM 362.0 mg/dL Blood Sugar 02/21/2025 08:51 AM 260.0 mg/dL Blood Sugar 02/20/2025 08:43 PM 294.0 mg/dL Blood Sugar 02/20/2025 07:50 AM 124.0 mg/dL Blood Sugar 02/19/2025 07:50 PM 283.0 mg/dL Blood Sugar 02/19/2025 06:57 AM 130.0 mg/dL Blood Sugar 02/18/2025 10:25 PM 268.0 mg/dL Blood Sugar 02/18/2025 07:52 AM 166.0 mg/dL Blood Sugar 02/17/2025 09:20 PM 273.0 mg/dL Blood Sugar 02/17/2025 08:11 AM 204.0 mg/dL Blood Sugar 02/16/2025 09:36 PM 393.0 mg/dL Blood Sugar 02/16/2025 06:33 AM 94.0 mg/dL Blood Sugar 02/15/2025 06:24 PM 453.0 mg/dL Blood Sugar 02/15/2025 11:50 AM 253.0 mg/dL Blood Sugar 02/14/2025 06:42 PM 139.0 mg/dL Blood Sugar 02/14/2025 09:38 AM 317.0 mg/dL Blood Sugar 02/13/2025 08:47 PM 397.0 mg/dL Blood Sugar 02/13/2025 08:01 AM 386.0 mg/dL Blood Sugar 02/12/2025 06:54 PM 458.0 mg/dL Blood Sugar 02/12/2025 08:54 AM 231.0 mg/dL Blood Sugar 02/11/2025 07:14 PM 599.0 mg/dL Blood Sugar 02/11/2025 06:59 AM 270.0 mg/dL Blood Sugar 02/10/2025 11:57 PM 447.0 mg/dL Blood Sugar 02/10/2025 07:12 AM 371.0 mg/dL Blood Sugar 02/10/2025 12:47 AM 472.0 mg/dL Blood Sugar 02/09/2025 06:07 AM 231.0 mg/dL Blood Sugar 02/08/2025 07:12 PM 319.0 mg/dL Blood Sugar 02/08/2025 09:14 AM 173.0 mg/dL Blood Sugar 02/07/2025 06:45 PM 270.0 mg/dL Blood Sugar 02/07/2025 08:29 AM 104.0 mg/dL Blood Sugar 02/06/2025 06:51 PM 250.0 mg/dL Blood Sugar 02/06/2025 08:28 AM 74.0 mg/dL Blood Sugar 02/05/2025 06:08 PM 251.0 mg/dL Blood Sugar 02/05/2025 07:02 AM 117.0 mg/dL Blood Sugar 02/04/2025 11:26 PM 156.0 mg/dL Blood Sugar 02/04/2025 07:38 AM 152.0 mg/dL Blood Sugar 02/03/2025 10:34 PM 266.0 mg/dL Blood Sugar 02/03/2025 08:57 AM 89.0 mg/dL Blood Sugar 02/02/2025 09:11 PM 145.0 mg/dL Blood Sugar 02/02/2025 06:42 AM 158.0 mg/dL Blood Sugar 02/01/2025 06:47 PM 190.0 mg/dL Blood Sugar 02/01/2025 08:16 AM 156.0 mg/dL Blood Sugar 01/31/2025 06:42 PM 215.0 mg/dL Blood Sugar 01/31/2025 06:57 AM 107.0 mg/dL Blood Sugar 01/30/2025 06:29 PM 171.0 mg/dL Blood Sugar 01/30/2025 08:33 AM 110.0 mg/dL Blood Sugar 01/29/2025 06:37 PM 209.0 mg/dL Blood Sugar 01/29/2025 08:54 AM 164.0 mg/dL Blood Sugar 01/28/2025 08:13 PM 278.0 mg/dL Blood Sugar 01/28/2025 07:03 AM 152.0 mg/dL Blood Sugar 01/27/2025 09:06 PM 283.0 mg/dL Blood Sugar 01/27/2025 07:09 AM 161.0 mg/dL Blood Sugar 01/26/2025 11:52 PM 320.0 mg/dL Blood Sugar 01/26/2025 06:48 AM 225.0 mg/dL Blood Sugar 01/25/2025 09:04 PM 421.0 mg/dL Blood Sugar 01/25/2025 09:55 AM 196.0 mg/dL Blood Sugar 01/24/2025 08:47 PM 393.0 mg/dL Blood Sugar 01/24/2025 08:01 AM 185.0 mg/dL Goals Goal Date Mer's wants and needs will be followed and respected. 06/20/2025 Resident will verbalize reduction of francia n. 06/20/2025 Ensure resident's needs are met. Residen t is able to make needs known. 06/20/2025 Resident's skin will remain intact. 06/03 Resident will improve memory /recall ability as evidenced by recalling staff names, & knowing where her room is. 06/20/2025 Adverse drug reactions will be identified with interventions initiated for 120 days from update/last review 06/20/2025 Will have no abnormal bleedi ng within the next 120 days AND/OR Will have no s/sx of increased bleeding over the next 120 days. 06/20/2025 Improve orientation, ability to communicate wants/needs, and to engage in community activities 06/20/2025 Will not exhibit any s/sx of hypo/hyperglycemia for 120 days from update/ last review 06/20/2025 Will have positive responses to activities of my choice weekly through next assessment. 06/20/2025 Will communicate with staff and peers. 0 06/20/2025 Patient will have no injuries related to falls 06/20/2025 Mer will maintain or improve nutrition al status through next review 06/20/2025 ADL approaches will meet the resident?s needs to enhance ability, maintain abilities, or provide quality. 06/20/2025 Will have a BM at least ever y 3 days for 120 days since update/last review AND/OR will not experience any complications r/t to colostomy for 120 days from update/ last review AND/OR Will not experience any GI complications for 120 days since update/last review AND/OR Will remain clean, dry between incontinent episodes thru 120days from update/last review 06/20/2025 Encounters Admission Date Discharge Date Description MRN Visit Count 07/17/2017 11:35 LTPAC Admission 3593 01
--- OUTSIDE RECORDS SUMMARY | 2025-04-28 18:26 | XMS_ITS | Clinical Summary ---
Author Organization [facility] Facility Address [address] [address] Care Team Providers Care Airplane Pilot Chief Name Role Phone Sonido Alvarado Primary Care Provider [phone] Allergies Active Allergy Reactions Criticality Noted Date [...] Visual Foot Exam 06/20/2018 Diabetes: Hemoglobin A1C 12/19/2023 024, 01/17/2020, 07/20/2019, Additional history exists Influenza Vaccine (#1) 2025 [...] Most Recently Relevant to Health Maintenance [place] [id number] Medicaid [place] ([id number]) Care Teams Airplane Pilot Chief Relationship Specialty Start Date End Date Sonido Alvarado DO [address] [place] [id number] PCP - General Internal Medicine 06/06/18
--- OUTSIDE RECORDS SUMMARY | 2025-04-28 18:26 | XMS_ITS | Continuity of Care Document ---
Author Organization [employer] 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 09/27/2023 Active Disruption of external operation (surgical) wound, not elsewhere classified, subsequent encounter T81.31XD 09/27/2023 Active [facility] (current) use of anticoagulants Z79.01 09/27/2023 Active [...] without macular edema, bilateral E11.3293 11/27/2022 Active [facility] (current) use of insulin Z79.4 07/02/2022 Active [...] Active Anxiety disorder, unspecified F41.9 07/27/2024 Active Depression, unspecified F32.A 08/11/2024 Active Pressure ulcer of sacral region, unstageable L89.150 01/22/2025 Activ e Cognitive communication deficit R41.841 03/01/2025 Active [facility] (current) use of insulin Z79.4 01/15/2025 Active Results Test Result Date/Time Value / Unit Interp. Refere nce Range Blood chemistry[[id number]] Glucose [Mass/volume] in Serum or Plasma [2345-7] 04/28/2025 05:43 PM 182 mg/dL N Blood chemistry[[id number]] Glucose [Mass/volume] in Serum or Plasma [2345-7] 04/28/2025 09:55 AM 181 mg/dL N Blood chemistry[[id number]] Glucose [Mass/volume] in Serum or Plasma [2345-7] 04/28/2025 01:30 PM 186 mg/dL N COVID-19 Test Viral PCR null flavor [null] 04/27/2025 06:00 PM See note NEG COVID-19 Test Viral PCR Blood chemistry[[id number]] Glucose [Mass/volume] in Serum or Plasma [2345-7] 04/27/2025 03:30 PM 175 mg/dL N Blood chemistry[[id number]] Glucose [Mass/volume] in Serum or Plasma [2345-7] 04/27/2025 05:22 PM 146 mg/dL N Blood chemistry[[id number]] Glucose [Mass/volume] in Serum or Plasma [2345-7] 04/27/2025 10:01 AM 315 mg/dL N Blood chemistry[[id number]] Glucose [Mass/volume] in Serum or Plasma [2345-7] 04/27/2025 12:45 PM 146 mg/dL N Blood chemistry[[id number]] Glucose [Mass/volume] in Serum or Plasma [2345-7] 04/26/2025 12:40 PM 200 mg/dL N Blood chemistry[[id number]] Glucose [Mass/volume] in Serum or Plasma [2345-7] 04/26/2025 11:32 AM 238 mg/dL N Blood chemistry[[id number]] Glucose [Mass/volume] in Serum or Plasma [2345-7] 04/26/2025 06:29 PM 185 mg/dL N Blood chemistry[[id number]] Glucose [Mass/volume] in Serum or Plasma [2345-7] 04/26/2025 02:00 PM 201 mg/dL N Blood chemistry[[id number]] Glucose [Mass/volume] in Serum or Plasma [2345-7] 04/25/2025 12:21 PM 141 mg/dL N Blood chemistry[[id number]] Glucose [Mass/volume] in Serum or Plasma [2345-7] 04/25/2025 05:17 PM 139 mg/dL N Blood chemistry[[id number]] Glucose [Mass/volume] in Serum or Plasma [2345-7] 04/25/2025 10:21 AM 259 mg/dL N Blood chemistry[[id number]] Glucose [Mass/volume] in Serum or Plasma [2345-7] 04/25/2025 12:25 PM 106 mg/dL N Blood chemistry[[id number]] Glucose [Mass/volume] in Serum or Plasma [2345-7] 04/24/2025 12:09 PM 235 mg/dL N Blood chemistry[[id number]] Glucose [Mass/volume] in Serum or Plasma [2345-7] 04/24/2025 05:38 PM 272 mg/dL N Blood chemistry[[id number]] Glucose [Mass/volume] in Serum or Plasma [2345-7] 04/24/2025 10:14 AM 261 mg/dL N Blood chemistry[[id number]] Glucose [Mass/volume] in Serum or Plasma [2345-7] 04/24/2025 02:49 PM 315 mg/dL N Blood chemistry[[id number]] Glucose [Mass/volume] in Serum or Plasma [2345-7] 04/23/2025 12:26 PM 198 mg/dL N Blood chemistry[[id number]] Glucose [Mass/volume] in Serum or Plasma [2345-7] 04/23/2025 05:17 PM 177 mg/dL N Blood chemistry[[id number]] Glucose [Mass/volume] in Serum or Plasma [2345-7] 04/23/2025 10:26 AM 185 mg/dL N Blood chemistry[[id number]] Glucose [Mass/volume] in Serum or Plasma [2345-7] 04/23/2025 02:57 PM 176 mg/dL N Blood chemistry[[id number]] Glucose [Mass/volume] in Serum or Plasma [2345-7] 04/22/2025 02:31 PM 288 mg/dL N Blood chemistry[[id number]] Glucose [Mass/volume] in Serum or Plasma [2345-7] 04/22/2025 05:18 PM 169 mg/dL N Blood chemistry[[id number]] Glucose [Mass/volume] in Serum or Plasma [2345-7] 04/22/2025 09:00 AM 307 mg/dL N Blood chemistry[[id number]] Glucose [Mass/volume] in Serum or Plasma [2345-7] 04/22/2025 01:18 PM 137 mg/dL N Blood chemistry[[id number]] Glucose [Mass/volume] in Serum or Plasma [2345-7] 04/21/2025 01:33 PM 111 mg/dL N Blood chemistry[[id number]] Glucose [Mass/volume] in Serum or Plasma [2345-7] 04/21/2025 03:15 PM 128 mg/dL N Blood chemistry[[id number]] Glucose [Mass/volume] in Serum or Plasma [2345-7] 04/21/2025 10:26 AM 389 mg/dL N Blood chemistry[[id number]] Glucose [Mass/volume] in Serum or Plasma [2345-7] 04/21/2025 07:07 AM 156 mg/dL N Blood chemistry[[id number]] Glucose [Mass/volume] in Serum or Plasma [2345-7] 04/20/2025 03:44 PM 271 mg/dL N Blood chemistry[[id number]] Glucose [Mass/volume] in Serum or Plasma [2345-7] 04/20/2025 04:42 PM 174 mg/dL N Blood chemistry[[id number]] Glucose [Mass/volume] in Serum or Plasma [2345-7] 04/20/2025 09:41 AM 208 mg/dL N Blood chemistry[[id number]] Glucose [Mass/volume] in Serum or Plasma [2345-7] 04/20/2025 12:54 PM 214 mg/dL N Blood chemistry[[id number]] Glucose [Mass/volume] in Serum or Plasma [2345-7] 04/19/2025 12:32 PM 350 mg/dL N Blood chemistry[[id number]] Glucose [Mass/volume] in Serum or Plasma [2345-7] 04/19/2025 11:24 AM 273 mg/dL N Blood chemistry[[id number]] Glucose [Mass/volume] in Serum or Plasma [2345-7] 04/19/2025 04:13 PM 181 mg/dL N Blood chemistry[[id number]] Glucose [Mass/volume] in Serum or Plasma [2345-7] 04/19/2025 04:12 PM 181 mg/dL N Blood chemistry[[id number]] Glucose [Mass/volume] in Serum or Plasma [2345-7] 04/19/2025 07:46 AM 112 mg/dL N Blood chemistry[[id number]] Glucose [Mass/volume] in Serum or Plasma [2345-7] 04/18/2025 12:17 PM 215 mg/dL N Blood chemistry[[id number]] Glucose [Mass/volume] in Serum or Plasma [2345-7] 04/18/2025 06:36 PM 299 mg/dL N Blood chemistry[[id number]] Glucose [Mass/volume] in Serum or Plasma [2345-7] 04/18/2025 04:30 PM 243 mg/dL N Blood chemistry[[id number]] Glucose [Mass/volume] in Serum or Plasma [2345-7] 04/18/2025 11:20 AM 195 mg/dL N Blood chemistry[[id number]] Glucose [Mass/volume] in Serum or Plasma [2345-7] 04/17/2025 01:16 PM 194 mg/dL N Blood chemistry[[id number]] Glucose [Mass/volume] in Serum or Plasma [2345-7] 04/17/2025 06:45 PM 234 mg/dL N Blood chemistry[[id number]] Glucose [Mass/volume] in Serum or Plasma [2345-7] 04/17/2025 11:12 AM 283 mg/dL N Blood chemistry[[id number]] Glucose [Mass/volume] in Serum or Plasma [2345-7] 04/17/2025 03:05 PM 142 mg/dL N Blood chemistry[[id number]] Glucose [Mass/volume] in Serum or Plasma [2345-7] 04/16/2025 12:39 PM 147 mg/dL N Blood chemistry[[id number]] Glucose [Mass/volume] in Serum or Plasma [2345-7] 04/16/2025 04:53 PM 143 mg/dL N Blood chemistry[[id number]] Glucose [Mass/volume] in Serum or Plasma [2345-7] 04/16/2025 09:49 AM 147 mg/dL N Blood chemistry[[id number]] Glucose [Mass/volume] in Serum or Plasma [2345-7] 04/16/2025 01:03 PM 164 mg/dL N Blood chemistry[[id number]] Glucose [Mass/volume] in Serum or Plasma [2345-7] 04/15/2025 02:08 PM 281 mg/dL N Blood chemistry[[id number]] Glucose [Mass/volume] in Serum or Plasma [2345-7] 04/15/2025 05:47 PM 207 mg/dL N Blood chemistry[[id number]] Glucose [Mass/volume] in Serum or Plasma [2345-7] 04/15/2025 11:04 AM 174 mg/dL N Blood chemistry[[id number]] Glucose [Mass/volume] in Serum or Plasma [2345-7] 04/15/2025 02:25 PM 168 mg/dL N Blood chemistry[[id number]] Glucose [Mass/volume] in Serum or Plasma [2345-7] 04/14/2025 02:18 PM 258 mg/dL N Blood chemistry[[id number]] Glucose [Mass/volume] in Serum or Plasma [2345-7] 04/14/2025 05:04 PM 225 mg/dL N Blood chemistry[[id number]] Glucose [Mass/volume] in Serum or Plasma [2345-7] 04/14/2025 09:52 AM 213 mg/dL N Blood chemistry[[id number]] Glucose [Mass/volume] in Serum or Plasma [2345-7] 04/14/2025 12:38 PM 222 mg/dL N Blood chemistry[[id number]] Glucose [Mass/volume] in Serum or Plasma [2345-7] 04/13/2025 02:20 PM 229 mg/dL N Blood chemistry[[id number]] Glucose [Mass/volume] in Serum or Plasma [2345-7] 04/13/2025 05:10 PM 252 mg/dL N Blood chemistry[[id number]] Glucose [Mass/volume] in Serum or Plasma [2345-7] 04/13/2025 09:46 AM 347 mg/dL N Blood chemistry[[id number]] Glucose [Mass/volume] in Serum or Plasma [2345-7] 04/13/2025 12:37 PM 246 mg/dL N Blood chemistry[[id number]] Glucose [Mass/volume] in Serum or Plasma [2345-7] 04/12/2025 12:54 PM 213 mg/dL N Blood chemistry[[id number]] Glucose [Mass/volume] in Serum or Plasma [2345-7] 04/12/2025 05:44 PM 165 mg/dL N Blood chemistry[[id number]] Glucose [Mass/volume] in Serum or Plasma [2345-7] 04/12/2025 03:00 PM 92 mg/dL N Blood chemistry[[id number]] Glucose [Mass/volume] in Serum or Plasma [2345-7] 04/11/2025 12:27 PM 202 mg/dL N Blood chemistry[[id number]] Glucose [Mass/volume] in Serum or Plasma [2345-7] 04/11/2025 06:09 PM 232 mg/dL N Blood chemistry[[id number]] Glucose [Mass/volume] in Serum or Plasma [2345-7] 04/11/2025 12:46 PM 127 mg/dL N Blood chemistry[[id number]] Glucose [Mass/volume] in Serum or Plasma [2345-7] 04/11/2025 09:47 AM 214 mg/dL N Blood chemistry[[id number]] Glucose [Mass/volume] in Serum or Plasma [2345-7] 04/10/2025 01:13 PM 387 mg/dL N Blood chemistry[[id number]] Glucose [Mass/volume] in Serum or Plasma [2345-7] 04/10/2025 05:23 PM 173 mg/dL N Blood chemistry[[id number]] Glucose [Mass/volume] in Serum or Plasma [2345-7] 04/10/2025 03:17 PM 101 mg/dL N Blood chemistry[[id number]] Glucose [Mass/volume] in Serum or Plasma [2345-7] 04/10/2025 10:11 AM 269 mg/dL N Blood chemistry[[id number]] Glucose [Mass/volume] in Serum or Plasma [2345-7] 04/09/2025 12:49 PM 224 mg/dL N Blood chemistry[[id number]] Glucose [Mass/volume] in Serum or Plasma [2345-7] 04/09/2025 05:21 PM 211 mg/dL N Blood chemistry[[id number]] Glucose [Mass/volume] in Serum or Plasma [2345-7] 04/09/2025 11:14 AM 327 mg/dL N Blood chemistry[[id number]] Glucose [Mass/volume] in Serum or Plasma [2345-7] 04/09/2025 03:06 PM 120 mg/dL N Blood chemistry[[id number]] Glucose [Mass/volume] in Serum or Plasma [2345-7] 04/08/2025 02:30 PM 307 mg/dL N Blood chemistry[[id number]] Glucose [Mass/volume] in Serum or Plasma [2345-7] 04/08/2025 05:15 PM 306 mg/dL N Blood chemistry[[id number]] Glucose [Mass/volume] in Serum or Plasma [2345-7] 04/08/2025 09:48 AM 191 mg/dL N Blood chemistry[[id number]] Glucose [Mass/volume] in Serum or Plasma [2345-7] 04/08/2025 12:55 PM 94 mg/dL N Blood chemistry[[id number]] Glucose [Mass/volume] in Serum or Plasma [2345-7] 04/07/2025 01:32 PM 144 mg/dL N Blood chemistry[[id number]] Glucose [Mass/volume] in Serum or Plasma [2345-7] 04/07/2025 04:49 PM 154 mg/dL N Blood chemistry[[id number]] Glucose [Mass/volume] in Serum or Plasma [2345-7] 04/07/2025 09:42 AM 119 mg/dL N Blood chemistry[[id number]] Glucose [Mass/volume] in Serum or Plasma [2345-7] 04/07/2025 12:52 PM 125 mg/dL N Blood chemistry[[id number]] Glucose [Mass/volume] in Serum or Plasma [2345-7] 04/06/2025 02:56 PM 151 mg/dL N Blood chemistry[[id number]] Glucose [Mass/volume] in Serum or Plasma [2345-7] 04/06/2025 05:34 PM 134 mg/dL N Blood chemistry[[id number]] Glucose [Mass/volume] in Serum or Plasma [2345-7] 04/06/2025 09:51 AM 156 mg/dL N Blood chemistry[[id number]] Glucose [Mass/volume] in Serum or Plasma [2345-7] 04/06/2025 11:59 AM 198 mg/dL N Blood chemistry[[id number]] Glucose [Mass/volume] in Serum or Plasma [2345-7] 04/05/2025 12:53 PM 231 mg/dL N Blood chemistry[[id number]] Glucose [Mass/volume] in Serum or Plasma [2345-7] 04/05/2025 05:33 PM 189 mg/dL N Blood chemistry[[id number]] Glucose [Mass/volume] in Serum or Plasma [2345-7] 04/05/2025 03:20 PM 111 mg/dL N Blood chemistry[[id number]] Glucose [Mass/volume] in Serum or Plasma [2345-7] 04/05/2025 10:53 AM 184 mg/dL N Blood chemistry[[id number]] Glucose [Mass/volume] in Serum or Plasma [2345-7] 04/04/2025 12:35 PM 289 mg/dL N Blood chemistry[[id number]] Glucose [Mass/volume] in Serum or Plasma [2345-7] 04/04/2025 11:19 AM 252 mg/dL N Blood chemistry[[id number]] Glucose [Mass/volume] in Serum or Plasma [2345-7] 04/04/2025 08:15 AM 179 mg/dL N Blood chemistry[[id number]] Glucose [Mass/volume] in Serum or Plasma [2345-7] 04/04/2025 01:24 PM 137 mg/dL N Blood chemistry[[id number]] Glucose [Mass/volume] in Serum or Plasma [2345-7] 04/03/2025 12:34 PM 274 mg/dL N Blood chemistry[[id number]] Glucose [Mass/volume] in Serum or Plasma [2345-7] 04/03/2025 12:24 PM 160 mg/dL N Blood chemistry[[id number]] Glucose [Mass/volume] in Serum or Plasma [2345-7] 04/03/2025 06:32 PM 276 mg/dL N Blood chemistry[[id number]] Glucose [Mass/volume] in Serum or Plasma [2345-7] 04/03/2025 03:21 PM 114 mg/dL N Blood chemistry[[id number]] Glucose [Mass/volume] in Serum or Plasma [2345-7] 04/02/2025 12:43 PM 184 mg/dL N Blood chemistry[[id number]] Glucose [Mass/volume] in Serum or Plasma [2345-7] 04/02/2025 06:52 PM 77 mg/dL N Blood chemistry[[id number]] Glucose [Mass/volume] in Serum or Plasma [2345-7] 04/02/2025 10:32 AM 311 mg/dL N Blood chemistry[[id number]] Glucose [Mass/volume] in Serum or Plasma [2345-7] 04/02/2025 12:59 PM 108 mg/dL N Blood chemistry[[id number]] Glucose [Mass/volume] in Serum or Plasma [2345-7] 04/01/2025 02:56 PM 118 mg/dL N Blood chemistry[[id number]] Glucose [Mass/volume] in Serum or Plasma [2345-7] 04/01/2025 05:33 PM 81 mg/dL N Blood chemistry[[id number]] Glucose [Mass/volume] in Serum or Plasma [2345-7] 04/01/2025 03:16 PM 118 mg/dL N Blood chemistry[[id number]] Glucose [Mass/volume] in Serum or Plasma [2345-7] 04/01/2025 10:53 AM 129 mg/dL N Blood chemistry[[id number]] Glucose [Mass/volume] in Serum or Plasma [2345-7] 03/31/2025 02:55 PM 228 mg/dL N Blood chemistry[[id number]] Glucose [Mass/volume] in Serum or Plasma [2345-7] 03/31/2025 05:44 PM 160 mg/dL N Blood chemistry[[id number]] Glucose [Mass/volume] in Serum or Plasma [2345-7] 03/31/2025 10:33 AM 240 mg/dL N Blood chemistry[[id number]] Glucose [Mass/volume] in Serum or Plasma [2345-7] 03/31/2025 02:41 PM 106 mg/dL N Blood chemistry[[id number]] Glucose [Mass/volume] in Serum or Plasma [2345-7] 03/30/2025 03:44 PM 90 mg/dL N Blood chemistry[[id number]] Glucose [Mass/volume] in Serum or Plasma [2345-7] 03/30/2025 05:16 PM 106 mg/dL N Blood chemistry[[id number]] Glucose [Mass/volume] in Serum or Plasma [2345-7] 03/30/2025 10:03 AM 161 mg/dL N Blood chemistry[[id number]] Glucose [Mass/volume] in Serum or Plasma [2345-7] 03/30/2025 12:51 PM 163 mg/dL N Blood chemistry[[id number]] Glucose [Mass/volume] in Serum or Plasma [2345-7] 03/29/2025 12:15 PM 292 mg/dL N Blood chemistry[[id number]] Glucose [Mass/volume] in Serum or Plasma [2345-7] 03/29/2025 06:58 PM 178 mg/dL N Blood chemistry[[id number]] Glucose [Mass/volume] in Serum or Plasma [2345-7] 03/29/2025 04:21 PM 188 mg/dL N Blood chemistry[[id number]] Glucose [Mass/volume] in Serum or Plasma [2345-7] 03/29/2025 11:00 AM 147 mg/dL N Blood chemistry[[id number]] Glucose [Mass/volume] in Serum or Plasma [2345-7] 03/28/2025 12:36 PM 107 mg/dL N Blood chemistry[[id number]] Glucose [Mass/volume] in Serum or Plasma [2345-7] 03/28/2025 05:45 PM 248 mg/dL N Blood chemistry[[id number]] Glucose [Mass/volume] in Serum or Plasma [2345-7] 03/28/2025 10:41 AM 220 mg/dL N Blood chemistry[[id number]] Glucose [Mass/volume] in Serum or Plasma [2345-7] 03/28/2025 12:23 PM 166 mg/dL N Blood chemistry[[id number]] Glucose [Mass/volume] in Serum or Plasma [2345-7] 03/27/2025 12:29 PM 284 mg/dL N Blood chemistry[[id number]] Glucose [Mass/volume] in Serum or Plasma [2345-7] 03/27/2025 09:54 AM 269 mg/dL N Blood chemistry[[id number]] Glucose [Mass/volume] in Serum or Plasma [2345-7] 03/27/2025 08:18 AM 155 mg/dL N Blood chemistry[[id number]] Glucose [Mass/volume] in Serum or Plasma [2345-7] 03/27/2025 12:26 PM 118 mg/dL N Blood chemistry[[id number]] Glucose [Mass/volume] in Serum or Plasma [2345-7] 03/26/2025 12:50 PM 377 mg/dL N Blood chemistry[[id number]] Glucose [Mass/volume] in Serum or Plasma [2345-7] 03/26/2025 10:50 AM 253 mg/dL N Blood chemistry[[id number]] Glucose [Mass/volume] in Serum or Plasma [2345-7] 03/26/2025 02:27 PM 88 mg/dL N Blood chemistry[[id number]] Glucose [Mass/volume] in Serum or Plasma [2345-7] 03/25/2025 04:33 PM 303 mg/dL N Blood chemistry[[id number]] Glucose [Mass/volume] in Serum or Plasma [2345-7] 03/25/2025 12:46 PM 149 mg/dL N Blood chemistry[[id number]] Glucose [Mass/volume] in Serum or Plasma [2345-7] 03/24/2025 05:00 PM 181 mg/dL N Blood chemistry[[id number]] Glucose [Mass/volume] in Serum or Plasma [2345-7] 03/24/2025 01:23 PM 101 mg/dL N Blood chemistry[[id number]] Glucose [Mass/volume] in Serum or Plasma [2345-7] 03/23/2025 05:35 PM 186 mg/dL N Blood chemistry[[id number]] Glucose [Mass/volume] in Serum or Plasma [2345-7] 03/23/2025 12:37 PM 160 mg/dL N Blood chemistry[[id number]] Glucose [Mass/volume] in Serum or Plasma [2345-7] 03/22/2025 01:35 PM 450 mg/dL N Blood chemistry[[id number]] Glucose [Mass/volume] in Serum or Plasma [2345-7] 03/22/2025 03:04 PM 127 mg/dL N Blood chemistry[[id number]] Glucose [Mass/volume] in Serum or Plasma [2345-7] 03/21/2025 12:25 PM 281 mg/dL N Blood chemistry[[id number]] Glucose [Mass/volume] in Serum or Plasma [2345-7] 03/21/2025 03:31 PM 102 mg/dL N Blood chemistry[[id number]] Glucose [Mass/volume] in Serum or Plasma [2345-7] 03/20/2025 12:43 PM 318 mg/dL N Blood chemistry[[id number]] Glucose [Mass/volume] in Serum or Plasma [2345-7] 03/20/2025 02:45 PM 203 mg/dL N Blood chemistry[[id number]] Glucose [Mass/volume] in Serum or Plasma [2345-7] 03/19/2025 12:45 PM 330 mg/dL N Blood chemistry[[id number]] Glucose [Mass/volume] in Serum or Plasma [2345-7] 03/19/2025 12:48 PM 205 mg/dL N Blood chemistry[[id number]] Glucose [Mass/volume] in Serum or Plasma [2345-7] 03/18/2025 01:53 PM 457 mg/dL N Blood chemistry[[id number]] Glucose [Mass/volume] in Serum or Plasma [2345-7] 03/18/2025 02:48 PM 162 mg/dL N Blood chemistry[[id number]] Glucose [Mass/volume] in Serum or Plasma [2345-7] 03/17/2025 02:56 PM 501 mg/dL N Blood chemistry[[id number]] Glucose [Mass/volume] in Serum or Plasma [2345-7] 03/17/2025 02:30 PM 183 mg/dL N Blood chemistry[[id number]] Glucose [Mass/volume] in Serum or Plasma [2345-7] 03/16/2025 12:35 PM 390 mg/dL N Blood chemistry[[id number]] Glucose [Mass/volume] in Serum or Plasma [2345-7] 03/16/2025 12:37 PM 270 mg/dL N Blood chemistry[[id number]] Glucose [Mass/volume] in Serum or Plasma [2345-7] 03/15/2025 12:28 PM 418 mg/dL N Blood chemistry[[id number]] Glucose [Mass/volume] in Serum or Plasma [2345-7] 03/15/2025 03:46 PM 218 mg/dL N Blood chemistry[[id number]] Glucose [Mass/volume] in Serum or Plasma [2345-7] 03/14/2025 01:08 PM 318 mg/dL N Blood chemistry[[id number]] Glucose [Mass/volume] in Serum or Plasma [2345-7] 03/14/2025 12:45 PM 131 mg/dL N Blood chemistry[[id number]] Glucose [Mass/volume] in Serum or Plasma [2345-7] 03/13/2025 12:25 PM 359 mg/dL N Blood chemistry[[id number]] Glucose [Mass/volume] in Serum or Plasma [2345-7] 03/13/2025 12:31 PM 215 mg/dL N Blood chemistry[[id number]] Glucose [Mass/volume] in Serum or Plasma [2345-7] 03/12/2025 03:00 PM 167 mg/dL N Blood chemistry[[id number]] Glucose [Mass/volume] in Serum or Plasma [2345-7] 03/12/2025 12:35 PM 306 mg/dL N Blood chemistry[[id number]] Glucose [Mass/volume] in Serum or Plasma [2345-7] 03/11/2025 02:25 PM 296 mg/dL N Blood chemistry[[id number]] Glucose [Mass/volume] in Serum or Plasma [2345-7] 03/11/2025 03:59 PM 194 mg/dL N Blood chemistry[[id number]] Glucose [Mass/volume] in Serum or Plasma [2345-7] 03/10/2025 04:35 PM 240 mg/dL N Blood chemistry[[id number]] Glucose [Mass/volume] in Serum or Plasma [2345-7] 03/10/2025 12:53 PM 145 mg/dL N Blood chemistry[[id number]] Glucose [Mass/volume] in Serum or Plasma [2345-7] 03/10/2025 07:15 AM 356 mg/dL N Blood chemistry[[id number]] Glucose [Mass/volume] in Serum or Plasma [2345-7] 03/09/2025 12:29 PM 225 mg/dL N Blood chemistry[[id number]] Glucose [Mass/volume] in Serum or Plasma [2345-7] 03/08/2025 02:27 PM 433 mg/dL N Blood chemistry[[id number]] Glucose [Mass/volume] in Serum or Plasma [2345-7] 03/08/2025 01:28 PM 249 mg/dL N Blood chemistry[[id number]] Glucose [Mass/volume] in Serum or Plasma [2345-7] 03/07/2025 12:21 PM 488 mg/dL N Blood chemistry[[id number]] Glucose [Mass/volume] in Serum or Plasma [2345-7] 03/07/2025 02:45 PM 239 mg/dL N Blood chemistry[[id number]] Glucose [Mass/volume] in Serum or Plasma [2345-7] 03/06/2025 01:02 PM 314 mg/dL N Blood chemistry[[id number]] Glucose [Mass/volume] in Serum or Plasma [2345-7] 03/06/2025 03:37 PM 139 mg/dL N Blood chemistry[[id number]] Glucose [Mass/volume] in Serum or Plasma [2345-7] 03/05/2025 12:23 PM 339 mg/dL N Blood chemistry[[id number]] Glucose [Mass/volume] in Serum or Plasma [2345-7] 03/05/2025 03:30 PM 148 mg/dL N Blood chemistry[[id number]] Glucose [Mass/volume] in Serum or Plasma [2345-7] 03/04/2025 03:09 PM 187 mg/dL N Blood chemistry[[id number]] Glucose [Mass/volume] in Serum or Plasma [2345-7] 03/04/2025 04:28 PM 138 mg/dL N Blood chemistry[[id number]] Glucose [Mass/volume] in Serum or Plasma [2345-7] 03/03/2025 04:38 PM 437 mg/dL N Blood chemistry[[id number]] Glucose [Mass/volume] in Serum or Plasma [2345-7] 03/03/2025 02:00 PM 163 mg/dL N Blood chemistry[[id number]] Glucose [Mass/volume] in Serum or Plasma [2345-7] 03/02/2025 02:15 PM 185 mg/dL N Blood chemistry[[id number]] Glucose [Mass/volume] in Serum or Plasma [2345-7] 03/02/2025 11:44 AM 127 mg/dL N Blood chemistry[[id number]] Glucose [Mass/volume] in Serum or Plasma [2345-7] 03/01/2025 11:40 AM 290 mg/dL N Blood chemistry[[id number]] Glucose [Mass/volume] in Serum or Plasma [2345-7] 03/01/2025 12:36 PM 177 mg/dL N Blood chemistry[[id number]] Glucose [Mass/volume] in Serum or Plasma [2345-7] 02/28/2025 02:26 PM 378 mg/dL N Blood chemistry[[id number]] Glucose [Mass/volume] in Serum or Plasma [2345-7] 02/28/2025 11:31 AM 172 mg/dL N Blood chemistry[[id number]] Glucose [Mass/volume] in Serum or Plasma [2345-7] 02/27/2025 11:28 AM 339 mg/dL N Blood chemistry[[id number]] Glucose [Mass/volume] in Serum or Plasma [2345-7] 02/27/2025 11:34 AM 180 mg/dL N Blood chemistry[[id number]] Glucose [Mass/volume] in Serum or Plasma [2345-7] 02/26/2025 11:21 AM 461 mg/dL N Blood chemistry[[id number]] Glucose [Mass/volume] in Serum or Plasma [2345-7] 02/26/2025 01:12 PM 116 mg/dL N Blood chemistry[[id number]] Glucose [Mass/volume] in Serum or Plasma [2345-7] 02/25/2025 12:15 PM 303 mg/dL N Blood chemistry[[id number]] Glucose [Mass/volume] in Serum or Plasma [2345-7] 02/25/2025 11:48 AM 173 mg/dL N Blood chemistry[[id number]] Glucose [Mass/volume] in Serum or Plasma [2345-7] 02/24/2025 04:33 PM 250 mg/dL N Blood chemistry[[id number]] Glucose [Mass/volume] in Serum or Plasma [2345-7] 02/23/2025 12:48 PM 526 mg/dL N Blood chemistry[[id number]] Glucose [Mass/volume] in Serum or Plasma [2345-7] 02/23/2025 11:42 AM 159 mg/dL N Blood chemistry[[id number]] Glucose [Mass/volume] in Serum or Plasma [2345-7] 02/22/2025 12:26 PM 415 mg/dL N Blood chemistry[[id number]] Glucose [Mass/volume] in Serum or Plasma [2345-7] 02/22/2025 11:48 AM 143 mg/dL N Blood chemistry[[id number]] Glucose [Mass/volume] in Serum or Plasma [2345-7] 02/21/2025 11:29 AM 362 mg/dL N Blood chemistry[[id number]] Glucose [Mass/volume] in Serum or Plasma [2345-7] 02/21/2025 01:51 PM 260 mg/dL N Blood chemistry[[id number]] Glucose [Mass/volume] in Serum or Plasma [2345-7] 02/20/2025 01:43 PM 294 mg/dL N Blood chemistry[[id number]] Glucose [Mass/volume] in Serum or Plasma [2345-7] 02/20/2025 12:50 PM 124 mg/dL N Blood chemistry[[id number]] Glucose [Mass/volume] in Serum or Plasma [2345-7] 02/19/2025 12:50 PM 283 mg/dL N Blood chemistry[[id number]] Glucose [Mass/volume] in Serum or Plasma [2345-7] 02/19/2025 11:57 AM 130 mg/dL N Blood chemistry[[id number]] Glucose [Mass/volume] in Serum or Plasma [2345-7] 02/18/2025 03:25 PM 268 mg/dL N Blood chemistry[[id number]] Glucose [Mass/volume] in Serum or Plasma [2345-7] 02/18/2025 12:52 PM 166 mg/dL N Blood chemistry[[id number]] Glucose [Mass/volume] in Serum or Plasma [2345-7] 02/17/2025 02:20 PM 273 mg/dL N Blood chemistry[[id number]] Glucose [Mass/volume] in Serum or Plasma [2345-7] 02/17/2025 01:11 PM 204 mg/dL N Blood chemistry[[id number]] Glucose [Mass/volume] in Serum or Plasma [2345-7] 02/16/2025 02:36 PM 393 mg/dL N Blood chemistry[[id number]] Glucose [Mass/volume] in Serum or Plasma [2345-7] 02/16/2025 11:33 AM 94 mg/dL N Blood chemistry[[id number]] Glucose [Mass/volume] in Serum or Plasma [2345-7] 02/15/2025 11:24 AM 453 mg/dL N Blood chemistry[[id number]] Glucose [Mass/volume] in Serum or Plasma [2345-7] 02/15/2025 04:50 PM 253 mg/dL N Blood chemistry[[id number]] Glucose [Mass/volume] in Serum or Plasma [2345-7] 02/14/2025 11:42 AM 139 mg/dL N Blood chemistry[[id number]] Glucose [Mass/volume] in Serum or Plasma [2345-7] 02/14/2025 02:38 PM 317 mg/dL N Blood chemistry[[id number]] Glucose [Mass/volume] in Serum or Plasma [2345-7] 02/13/2025 01:47 PM 397 mg/dL N Blood chemistry[[id number]] Glucose [Mass/volume] in Serum or Plasma [2345-7] 02/13/2025 01:01 PM 386 mg/dL N Blood chemistry[[id number]] Glucose [Mass/volume] in Serum or Plasma [2345-7] 02/12/2025 11:54 AM 458 mg/dL N Blood chemistry[[id number]] Glucose [Mass/volume] in Serum or Plasma [2345-7] 02/12/2025 01:54 PM 231 mg/dL N Blood chemistry[[id number]] Glucose [Mass/volume] in Serum or Plasma [2345-7] 02/11/2025 12:14 PM 599 mg/dL N Blood chemistry[[id number]] Glucose [Mass/volume] in Serum or Plasma [2345-7] 02/11/2025 11:59 AM 270 mg/dL N Blood chemistry[[id number]] Glucose [Mass/volume] in Serum or Plasma [2345-7] 02/10/2025 04:57 PM 447 mg/dL N Blood chemistry[[id number]] Glucose [Mass/volume] in Serum or Plasma [2345-7] 02/10/2025 12:12 PM 371 mg/dL N Blood chemistry[[id number]] Glucose [Mass/volume] in Serum or Plasma [2345-7] 02/10/2025 05:47 PM 472 mg/dL N Blood chemistry[[id number]] Glucose [Mass/volume] in Serum or Plasma [2345-7] 02/09/2025 11:07 AM 231 mg/dL N Blood chemistry[[id number]] Glucose [Mass/volume] in Serum or Plasma [2345-7] 02/08/2025 12:12 PM 319 mg/dL N Blood chemistry[[id number]] Glucose [Mass/volume] in Serum or Plasma [2345-7] 02/08/2025 02:14 PM 173 mg/dL N Blood chemistry[[id number]] Glucose [Mass/volume] in Serum or Plasma [2345-7] 02/07/2025 11:45 AM 270 mg/dL N Blood chemistry[[id number]] Glucose [Mass/volume] in Serum or Plasma [2345-7] 02/07/2025 01:29 PM 104 mg/dL N Blood chemistry[[id number]] Glucose [Mass/volume] in Serum or Plasma [2345-7] 02/06/2025 11:51 AM 250 mg/dL N Blood chemistry[[id number]] Glucose [Mass/volume] in Serum or Plasma [2345-7] 02/06/2025 01:28 PM 74 mg/dL N Blood chemistry[[id number]] Glucose [Mass/volume] in Serum or Plasma [2345-7] 02/05/2025 11:08 AM 251 mg/dL N Blood chemistry[[id number]] Glucose [Mass/volume] in Serum or Plasma [2345-7] 02/05/2025 12:02 PM 117 mg/dL N Blood chemistry[[id number]] Glucose [Mass/volume] in Serum or Plasma [2345-7] 02/04/2025 04:26 PM 156 mg/dL N Blood chemistry[[id number]] Glucose [Mass/volume] in Serum or Plasma [2345-7] 02/04/2025 12:38 PM 152 mg/dL N Blood chemistry[[id number]] Glucose [Mass/volume] in Serum or Plasma [2345-7] 02/03/2025 03:34 PM 266 mg/dL N Blood chemistry[[id number]] Glucose [Mass/volume] in Serum or Plasma [2345-7] 02/03/2025 01:57 PM 89 mg/dL N Blood chemistry[[id number]] Glucose [Mass/volume] in Serum or Plasma [2345-7] 02/02/2025 02:11 PM 145 mg/dL N Blood chemistry[[id number]] Glucose [Mass/volume] in Serum or Plasma [2345-7] 02/02/2025 11:42 AM 158 mg/dL N Blood chemistry[[id number]] Glucose [Mass/volume] in Serum or Plasma [2345-7] 02/01/2025 11:47 AM 190 mg/dL N Blood chemistry[[id number]] Glucose [Mass/volume] in Serum or Plasma [2345-7] 02/01/2025 01:16 PM 156 mg/dL N Blood chemistry[[id number]] Glucose [Mass/volume] in Serum or Plasma [2345-7] 01/31/2025 11:42 AM 215 mg/dL N Blood chemistry[[id number]] Glucose [Mass/volume] in Serum or Plasma [2345-7] 01/31/2025 11:57 AM 107 mg/dL N Blood chemistry[[id number]] Glucose [Mass/volume] in Serum or Plasma [2345-7] 01/30/2025 11:29 AM 171 mg/dL N Blood chemistry[[id number]] Glucose [Mass/volume] in Serum or Plasma [2345-7] 01/30/2025 01:33 PM 110 mg/dL N Blood chemistry[[id number]] Glucose [Mass/volume] in Serum or Plasma [2345-7] 01/29/2025 11:37 AM 209 mg/dL N Blood chemistry[[id number]] Glucose [Mass/volume] in Serum or Plasma [2345-7] 01/29/2025 01:54 PM 164 mg/dL N Blood chemistry[[id number]] Glucose [Mass/volume] in Serum or Plasma [2345-7] 01/28/2025 01:13 PM 278 mg/dL N Blood chemistry[[id number]] Glucose [Mass/volume] in Serum or Plasma [2345-7] 01/28/2025 12:03 PM 152 mg/dL N Blood chemistry[[id number]] Glucose [Mass/volume] in Serum or Plasma [2345-7] 01/27/2025 02:06 PM 283 mg/dL N Blood chemistry[[id number]] Glucose [Mass/volume] in Serum or Plasma [2345-7] 01/27/2025 12:09 PM 161 mg/dL N Blood chemistry[[id number]] Glucose [Mass/volume] in Serum or Plasma [2345-7] 01/26/2025 04:52 PM 320 mg/dL N Blood chemistry[[id number]] Glucose [Mass/volume] in Serum or Plasma [2345-7] 01/26/2025 11:48 AM 225 mg/dL N Blood chemistry[[id number]] Glucose [Mass/volume] in Serum or Plasma [2345-7] 01/25/2025 02:04 PM 421 mg/dL N Blood chemistry[[id number]] Glucose [Mass/volume] in Serum or Plasma [2345-7] 01/25/2025 02:55 PM 196 mg/dL N Blood chemistry[[id number]] Glucose [Mass/volume] in Serum or Plasma [2345-7] 01/24/2025 01:47 PM 393 mg/dL N Blood chemistry[[id number]] Glucose [Mass/volume] in Serum or Plasma [2345-7] 01/24/2025 01:01 PM 185 mg/dL N Blood chemistry[[id number]] Glucose [Mass/volume] in Serum or Plasma [2345-7] 01/23/2025 11:19 AM 273 mg/dL N Blood chemistry[[id number]] Glucose [Mass/volume] in Serum or Plasma [2345-7] 01/23/2025 02:17 PM 131 mg/dL N Blood chemistry[[id number]] Glucose [Mass/volume] in Serum or Plasma [2345-7] 01/22/2025 11:18 AM 194 mg/dL N Blood chemistry[[id number]] Glucose [Mass/volume] in Serum or Plasma [2345-7] 01/22/2025 11:46 AM 138 mg/dL N Blood chemistry[[id number]] Glucose [Mass/volume] in Serum or Plasma [2345-7] 01/21/2025 02:41 PM 230 mg/dL N Blood chemistry[[id number]] Glucose [Mass/volume] in Serum or Plasma [2345-7] 01/21/2025 02:03 PM 124 mg/dL N Blood chemistry[[id number]] Glucose [Mass/volume] in Serum or Plasma [2345-7] 01/20/2025 02:21 PM 328 mg/dL N Blood chemistry[[id number]] Glucose [Mass/volume] in Serum or Plasma [2345-7] 01/20/2025 01:48 PM 304 mg/dL N Blood chemistry[[id number]] Glucose [Mass/volume] in Serum or Plasma [2345-7] 01/19/2025 01:03 PM 367 mg/dL N Blood chemistry[[id number]] Glucose [Mass/volume] in Serum or Plasma [2345-7] 01/19/2025 11:48 AM 288 mg/dL N Blood chemistry[[id number]] Glucose [Mass/volume] in Serum or Plasma [2345-7] 01/18/2025 11:17 AM 443 mg/dL N Blood chemistry[[id number]] Glucose [Mass/volume] in Serum or Plasma [2345-7] 01/18/2025 01:29 PM 229 mg/dL N Blood chemistry[[id number]] Glucose [Mass/volume] in Serum or Plasma [2345-7] 01/17/2025 03:14 PM 382 mg/dL N Blood chemistry[[id number]] Glucose [Mass/volume] in Serum or Plasma [2345-7] 01/17/2025 11:34 AM 151 mg/dL N Blood chemistry[[id number]] Glucose [Mass/volume] in Serum or Plasma [2345-7] 01/16/2025 01:15 PM 393 mg/dL N Blood chemistry[[id number]] Glucose [Mass/volume] in Serum or Plasma [2345-7] 01/16/2025 11:53 AM 179 mg/dL N Blood chemistry[[id number]] Glucose [Mass/volume] in Serum or Plasma [2345-7] 01/15/2025 11:18 AM 360 mg/dL N Blood chemistry[[id number]] Glucose [Mass/volume] in Serum or Plasma [2345-7] 01/15/2025 01:48 PM 210 mg/dL N Blood chemistry[[id number]] Glucose [Mass/volume] in Serum or Plasma [2345-7] 01/15/2025 05:09 PM 265 mg/dL N Blood chemistry[[id number]] Glucose [Mass/volume] in Serum or Plasma [2345-7] 01/14/2025 11:51 AM 195 mg/dL N Blood chemistry[[id number]] Glucose [Mass/volume] in Serum or Plasma [2345-7] 01/13/2025 02:57 PM 381 mg/dL N Blood chemistry[[id number]] Glucose [Mass/volume] in Serum or Plasma [2345-7] 01/13/2025 12:30 PM 249 mg/dL N Blood chemistry[[id number]] Glucose [Mass/volume] in Serum or Plasma [2345-7] 01/12/2025 04:21 PM 345 mg/dL N Blood chemistry[[id number]] Glucose [Mass/volume] in Serum or Plasma [2345-7] 01/12/2025 11:21 AM 260 mg/dL N Blood chemistry[[id number]] Glucose [Mass/volume] in Serum or Plasma [2345-7] 01/11/2025 11:50 AM 251 mg/dL N Blood chemistry[[id number]] Glucose [Mass/volume] in Serum or Plasma [2345-7] 01/11/2025 12:08 PM 342 mg/dL N Blood chemistry[[id number]] Glucose [Mass/volume] in Serum or Plasma [2345-7] 01/10/2025 12:53 PM 303 mg/dL N Blood chemistry[[id number]] Glucose [Mass/volume] in Serum or Plasma [2345-7] 01/10/2025 11:41 AM 258 mg/dL N Blood chemistry[[id number]] Glucose [Mass/volume] in Serum or Plasma [2345-7] 01/09/2025 01:02 PM 383 mg/dL N Blood chemistry[[id number]] Glucose [Mass/volume] in Serum or Plasma [2345-7] 01/09/2025 11:30 AM 233 mg/dL N Blood chemistry[[id number]] Glucose [Mass/volume] in Serum or Plasma [2345-7] 01/08/2025 11:57 AM 340 mg/dL N Blood chemistry[[id number]] Glucose [Mass/volume] in Serum or Plasma [2345-7] 01/08/2025 11:29 AM 318 mg/dL N Blood chemistry[[id number]] Glucose [Mass/volume] in Serum or Plasma [2345-7] 01/08/2025 05:29 PM 448 mg/dL N Blood chemistry[[id number]] Glucose [Mass/volume] in Serum or Plasma [2345-7] 01/07/2025 12:11 PM 220 mg/dL N Blood chemistry[[id number]] Glucose [Mass/volume] in Serum or Plasma [2345-7] 01/06/2025 04:39 PM 402 mg/dL N Blood chemistry[[id number]] Glucose [Mass/volume] in Serum or Plasma [2345-7] 01/06/2025 10:21 AM 347 mg/dL N Blood chemistry[[id number]] Glucose [Mass/volume] in Serum or Plasma [2345-7] 01/05/2025 02:19 PM 407 mg/dL N Blood chemistry[[id number]] Glucose [Mass/volume] in Serum or Plasma [2345-7] 01/05/2025 12:03 PM 348 mg/dL N Blood chemistry[[id number]] Glucose [Mass/volume] in Serum or Plasma [2345-7] 01/04/2025 03:12 PM 243 mg/dL N Blood chemistry[[id number]] Glucose [Mass/volume] in Serum or Plasma [2345-7] 01/04/2025 01:53 PM 390 mg/dL N Blood chemistry[[id number]] Glucose [Mass/volume] in Serum or Plasma [2345-7] 01/03/2025 12:47 PM 331 mg/dL N Blood chemistry[[id number]] Glucose [Mass/volume] in Serum or Plasma [2345-7] 01/03/2025 11:36 AM 218 mg/dL N Blood chemistry[[id number]] Glucose [Mass/volume] in Serum or Plasma [2345-7] 01/02/2025 12:50 PM 242 mg/dL N Blood chemistry[[id number]] Glucose [Mass/volume] in Serum or Plasma [2345-7] 01/02/2025 10:57 AM 371 mg/dL N Blood chemistry[[id number]] Glucose [Mass/volume] in Serum or Plasma [2345-7] 01/01/2025 02:48 PM 331 mg/dL N Blood chemistry[[id number]] Glucose [Mass/volume] in Serum or Plasma [2345-7] 01/01/2025 11:53 AM 208 mg/dL N Blood chemistry[[id number]] Glucose [Mass/volume] in Serum or Plasma [2345-7] 12/31/2024 04:45 PM 336 mg/dL N Blood chemistry[[id number]] Glucose [Mass/volume] in Serum or Plasma [2345-7] 12/31/2024 11:57 AM 188 mg/dL N Blood chemistry[[id number]] Glucose [Mass/volume] in Serum or Plasma [2345-7] 12/30/2024 02:28 PM 315 mg/dL N Blood chemistry[[id number]] Glucose [Mass/volume] in Serum or Plasma [5-7] 12/30/2024 11:57 AM 215 mg/dL N Blood chemistry[[id number]] Glucose [Mass/volume] in Serum or Plasma [2345-7] 12/29/2024 04:43 PM 414 mg/dL N Blood chemistry[[id number]] Glucose [Mass/volume] in Serum or Plasma [2345-7] 12/29/2024 11:55 AM 280 mg/dL N Blood chemistry[[id number]] Glucose [Mass/volume] in Serum or Plasma [2345-7] 12/28/2024 02:08 PM 263 mg/dL N Blood chemistry[[id number]] Glucose [Mass/volume] in Serum or Plasma [2345-7] 12/28/2024 12:27 PM 324 mg/dL N Blood chemistry[[id number]] Glucose [Mass/volume] in Serum or Plasma [2345-7] 12/27/2024 02:00 PM 476 mg/dL N Blood chemistry[[id number]] Glucose [Mass/volume] in Serum or Plasma [2345-7] 12/27/2024 11:42 AM 181 mg/dL N Blood chemistry[[id number]] Glucose [Mass/volume] in Serum or Plasma [2345-7] 12/26/2024 01:12 PM 322 mg/dL N Blood chemistry[[id number]] Glucose [Mass/volume] in Serum or Plasma [2345-7] 12/26/2024 11:52 AM 179 mg/dL N Blood chemistry[[id number]] Glucose [Mass/volume] in Serum or Plasma [2345-7] 12/25/2024 12:08 PM 185 mg/dL N Blood chemistry[[id number]] Glucose [Mass/volume] in Serum or Plasma [2345-7] 12/25/2024 11:39 AM 331 mg/dL N Blood chemistry[[id number]] Glucose [Mass/volume] in Serum or Plasma [2345-7] 12/24/2024 05:05 PM 299 mg/dL N Blood chemistry[[id number]] Glucose [Mass/volume] in Serum or Plasma [2345-7] 12/24/2024 12:29 PM 388 mg/dL N Blood chemistry[[id number]] Glucose [Mass/volume] in Serum or Plasma [2345-7] 12/24/2024 11:49 AM 177 mg/dL N Blood chemistry[[id number]] Glucose [Mass/volume] in Serum or Plasma [2345-7] 12/23/2024 11:56 AM 280 mg/dL N Blood chemistry[[id number]] Glucose [Mass/volume] in Serum or Plasma [2345-7] 12/22/2024 03:07 PM 463 mg/dL N Blood chemistry[[id number]] Glucose [Mass/volume] in Serum or Plasma [2345-7] 12/22/2024 11:35 AM 214 mg/dL N Blood chemistry[[id number]] Glucose [Mass/volume] in Serum or Plasma [2345-7] 12/21/2024 03:40 PM 233 mg/dL N Blood chemistry[[id number]] Glucose [Mass/volume] in Serum or Plasma [2345-7] 12/21/2024 12:50 PM 189 mg/dL N Blood chemistry[[id number]] Glucose [Mass/volume] in Serum or Plasma [2345-7] 12/20/2024 11:46 AM 238 mg/dL N Blood chemistry[[id number]] Glucose [Mass/volume] in Serum or Plasma [2345-7] 12/20/2024 11:28 AM 195 mg/dL N Blood chemistry[[id number]] Glucose [Mass/volume] in Serum or Plasma [2345-7] 12/19/2024 02:31 PM 422 mg/dL N Blood chemistry[[id number]] Glucose [Mass/volume] in Serum or Plasma [2345-7] 12/19/2024 01:07 PM 199 mg/dL N Blood chemistry[[id number]] Glucose [Mass/volume] in Serum or Plasma [2345-7] 12/18/2024 12:02 PM 153 mg/dL N Blood chemistry[[id number]] Glucose [Mass/volume] in Serum or Plasma [2345-7] 12/18/2024 11:45 AM 259 mg/dL N Blood chemistry[[id number]] Glucose [Mass/volume] in Serum or Plasma [2345-7] 12/17/2024 01:32 PM 284 mg/dL N Blood chemistry[[id number]] Glucose [Mass/volume] in Serum or Plasma [2345-7] 12/17/2024 01:19 PM 195 mg/dL N Blood chemistry[[id number]] Glucose [Mass/volume] in Serum or Plasma [2345-7] 12/16/2024 03:22 PM 377 mg/dL N Blood chemistry[[id number]] Glucose [Mass/volume] in Serum or Plasma [2345-7] 12/16/2024 11:44 AM 271 mg/dL N Blood chemistry[[id number]] Glucose [Mass/volume] in Serum or Plasma [2345-7] 12/16/2024 06:55 AM 392 mg/dL N Blood chemistry[[id number]] Glucose [Mass/volume] in Serum or Plasma [2345-7] 12/15/2024 11:41 AM 241 mg/dL N Blood chemistry[[id number]] Glucose [Mass/volume] in Serum or Plasma [2345-7] 12/14/2024 11:52 AM 247 mg/dL N Blood chemistry[[id number]] Glucose [Mass/volume] in Serum or Plasma [2345-7] 12/14/2024 11:29 AM 289 mg/dL N Blood chemistry[[id number]] Glucose [Mass/volume] in Serum or Plasma [2345-7] 12/13/2024 03:07 PM 444 mg/dL N Blood chemistry[[id number]] Glucose [Mass/volume] in Serum or Plasma [2345-7] 12/13/2024 11:39 AM 205 mg/dL N Blood chemistry[[id number]] Glucose [Mass/volume] in Serum or Plasma [2345-7] 12/12/2024 11:47 AM 194 mg/dL N Blood chemistry[[id number]] Glucose [Mass/volume] in Serum or Plasma [2345-7] 12/12/2024 11:38 AM 492 mg/dL N Blood chemistry[[id number]] Glucose [Mass/volume] in Serum or Plasma [2345-7] 12/11/2024 11:49 AM 255 mg/dL N Blood chemistry[[id number]] Glucose [Mass/volume] in Serum or Plasma [2345-7] 12/11/2024 11:23 AM 153 mg/dL N Blood chemistry[[id number]] Glucose [Mass/volume] in Serum or Plasma [2345-7] 12/10/2024 02:02 PM 402 mg/dL N Blood chemistry[[id number]] Glucose [Mass/volume] in Serum or Plasma [2345-7] 12/10/2024 11:49 AM 240 mg/dL N Blood chemistry[[id number]] Glucose [Mass/volume] in Serum or Plasma [2345-7] 12/09/2024 02:07 PM 323 mg/dL N Blood chemistry[[id number]] Glucose [Mass/volume] in Serum or Plasma [2345-7] 12/09/2024 01:04 PM 240 mg/dL N Blood chemistry[[id number]] Glucose [Mass/volume] in Serum or Plasma [2345-7] 12/08/2024 02:34 PM 345 mg/dL N Blood chemistry[[id number]] Glucose [Mass/volume] in Serum or Plasma [2345-7] 12/08/2024 12:07 PM 267 mg/dL N Blood chemistry[[id number]] Glucose [Mass/volume] in Serum or Plasma [2345-7] 12/07/2024 02:51 PM 369 mg/dL N Blood chemistry[[id number]] Glucose [Mass/volume] in Serum or Plasma [2345-7] 12/07/2024 11:25 AM 227 mg/dL N Blood chemistry[[id number]] Glucose [Mass/volume] in Serum or Plasma [2345-7] 12/06/2024 01:14 PM 314 mg/dL N Blood chemistry[[id number]] Glucose [Mass/volume] in Serum or Plasma [2345-7] 12/05/2024 01:23 PM 153 mg/dL N Blood chemistry[[id number]] Glucose [Mass/volume] in Serum or Plasma [2345-7] 12/04/2024 12:42 PM 178 mg/dL N Blood chemistry[[id number]] Glucose [Mass/volume] in Serum or Plasma [2345-7] 12/04/2024 11:43 AM 209 mg/dL N Blood chemistry[[id number]] Glucose [Mass/volume] in Serum or Plasma [2345-7] 12/03/2024 01:16 PM 299 mg/dL N Blood chemistry[[id number]] Glucose [Mass/volume] in Serum or Plasma [2345-7] 12/03/2024 11:39 AM 176 mg/dL N Blood chemistry[[id number]] Glucose [Mass/volume] in Serum or Plasma [2345-7] 12/02/2024 03:02 PM 252 mg/dL N Blood chemistry[[id number]] Glucose [Mass/volume] in Serum or Plasma [2345-7] 12/02/2024 11:44 AM 162 mg/dL N Blood chemistry[[id number]] Glucose [Mass/volume] in Serum or Plasma [2345-7] 12/01/2024 03:37 PM 231 mg/dL N Blood chemistry[[id number]] Glucose [Mass/volume] in Serum or Plasma [2345-7] 12/01/2024 12:21 PM 151 mg/dL N Blood chemistry[[id number]] Glucose [Mass/volume] in Serum or Plasma [2345-7] 11/30/2024 12:33 PM 215 mg/dL N Blood chemistry[[id number]] Glucose [Mass/volume] in Serum or Plasma [2345-7] 11/30/2024 11:30 AM 282 mg/dL N Blood chemistry[[id number]] Glucose [Mass/volume] in Serum or Plasma [2345-7] 11/29/2024 12:37 PM 382 mg/dL N Blood chemistry[[id number]] Glucose [Mass/volume] in Serum or Plasma [2345-7] 11/29/2024 11:42 AM 201 mg/dL N Blood chemistry[[id number]] Glucose [Mass/volume] in Serum or Plasma [2345-7] 11/28/2024 12:17 PM 319 mg/dL N Blood chemistry[[id number]] Glucose [Mass/volume] in Serum or Plasma [2345-7] 11/28/2024 11:32 AM 254 mg/dL N Blood chemistry[[id number]] Glucose [Mass/volume] in Serum or Plasma [2345-7] 11/27/2024 05:25 PM 225 mg/dL N Blood chemistry[[id number]] Glucose [Mass/volume] in Serum or Plasma [2345-7] 11/27/2024 11:36 AM 251 mg/dL N Blood chemistry[[id number]] Glucose [Mass/volume] in Serum or Plasma [2345-7] 11/27/2024 11:28 AM 224 mg/dL N Blood chemistry[[id number]] Glucose [Mass/volume] in Serum or Plasma [2345-7] 11/26/2024 01:00 PM 207 mg/dL N Blood chemistry[[id number]] Glucose [Mass/volume] in Serum or Plasma [2345-7] 11/25/2024 03:15 PM 228 mg/dL N Blood chemistry[[id number]] Glucose [Mass/volume] in Serum or Plasma [2345-7] 11/25/2024 12:06 PM 190 mg/dL N Blood chemistry[[id number]] Glucose [Mass/volume] in Serum or Plasma [2345-7] 11/24/2024 01:26 PM 288 mg/dL N Blood chemistry[[id number]] Glucose [Mass/volume] in Serum or Plasma [2345-7] 11/24/2024 12:08 PM 212 mg/dL N Blood chemistry[[id number]] Glucose [Mass/volume] in Serum or Plasma [2345-7] 11/23/2024 11:48 AM 310 mg/dL N Blood chemistry[[id number]] Glucose [Mass/volume] in Serum or Plasma [2345-7] 11/23/2024 11:37 AM 212 mg/dL N Blood chemistry[[id number]] Glucose [Mass/volume] in Serum or Plasma [2345-7] 11/22/2024 02:22 PM 360 mg/dL N Blood chemistry[[id number]] Glucose [Mass/volume] in Serum or Plasma [2345-7] 11/22/2024 12:58 PM 271 mg/dL N Blood chemistry[[id number]] Glucose [Mass/volume] in Serum or Plasma [2345-7] 11/21/2024 01:18 PM 202 mg/dL N Blood chemistry[[id number]] Glucose [Mass/volume] in Serum or Plasma [2345-7] 11/21/2024 12:35 PM 186 mg/dL N Blood chemistry[[id number]] Glucose [Mass/volume] in Serum or Plasma [2345-7] 11/20/2024 01:27 PM 218 mg/dL N Blood chemistry[[id number]] Glucose [Mass/volume] in Serum or Plasma [2345-7] 11/20/2024 12:59 PM 288 mg/dL N Blood chemistry[[id number]] Glucose [Mass/volume] in Serum or Plasma [2345-7] 11/19/2024 02:56 PM 183 mg/dL N Blood chemistry[[id number]] Glucose [Mass/volume] in Serum or Plasma [2345-7] 11/19/2024 12:50 PM 111 mg/dL N Blood chemistry[[id number]] Glucose [Mass/volume] in Serum or Plasma [2345-7] 11/18/2024 04:56 PM 227 mg/dL N Blood chemistry[[id number]] Glucose [Mass/volume] in Serum or Plasma [2345-7] 11/18/2024 01:06 PM 163 mg/dL N Blood chemistry[[id number]] Glucose [Mass/volume] in Serum or Plasma [2345-7] 11/17/2024 02:16 PM 200 mg/dL N Blood chemistry[[id number]] Glucose [Mass/volume] in Serum or Plasma [2345-7] 11/17/2024 10:49 AM 291 mg/dL N Blood chemistry[[id number]] Glucose [Mass/volume] in Serum or Plasma [2345-7] 11/16/2024 02:23 PM 221 mg/dL N Blood chemistry[[id number]] Glucose [Mass/volume] in Serum or Plasma [2345-7] 11/16/2024 12:48 PM 342 mg/dL N Blood chemistry[[id number]] Glucose [Mass/volume] in Serum or Plasma [2345-7] 11/15/2024 01:48 PM 210 mg/dL N Blood chemistry[[id number]] Glucose [Mass/volume] in Serum or Plasma [2345-7] 11/15/2024 12:38 PM 335 mg/dL N Blood chemistry[[id number]] Glucose [Mass/volume] in Serum or Plasma [2345-7] 11/14/2024 02:11 PM 209 mg/dL N Blood chemistry[[id number]] Glucose [Mass/volume] in Serum or Plasma [2345-7] 11/14/2024 01:28 PM 170 mg/dL N Blood chemistry[[id number]] Glucose [Mass/volume] in Serum or Plasma [2345-7] 11/13/2024 12:56 PM 168 mg/dL N Blood chemistry[[id number]] Glucose [Mass/volume] in Serum or Plasma [2345-7] 11/13/2024 11:46 AM 234 mg/dL N Blood chemistry[[id number]] Glucose [Mass/volume] in Serum or Plasma [2345-7] 11/12/2024 01:35 PM 202 mg/dL N Blood chemistry[[id number]] Glucose [Mass/volume] in Serum or Plasma [2345-7] 11/12/2024 12:55 PM 248 mg/dL N Blood chemistry[[id number]] Glucose [Mass/volume] in Serum or Plasma [2345-7] 11/11/2024 02:18 PM 217 mg/dL N Blood chemistry[[id number]] Glucose [Mass/volume] in Serum or Plasma [2345-7] 11/11/2024 12:04 PM 204 mg/dL N Blood chemistry[[id number]] Glucose [Mass/volume] in Serum or Plasma [2345-7] 11/10/2024 01:14 PM 253 mg/dL N Blood chemistry[[id number]] Glucose [Mass/volume] in Serum or Plasma [2345-7] 11/10/2024 11:51 AM 167 mg/dL N Blood chemistry[[id number]] Glucose [Mass/volume] in Serum or Plasma [2345-7] 11/09/2024 03:12 PM 334 mg/dL N Blood chemistry[[id number]] Glucose [Mass/volume] in Serum or Plasma [2345-7] 11/09/2024 11:43 AM 302 mg/dL N Blood chemistry[[id number]] Glucose [Mass/volume] in Serum or Plasma [2345-7] 11/08/2024 03:42 PM 405 mg/dL N Blood chemistry[[id number]] Glucose [Mass/volume] in Serum or Plasma [2345-7] 11/08/2024 11:13 AM 254 mg/dL N Blood chemistry[[id number]] Glucose [Mass/volume] in Serum or Plasma [2345-7] 11/07/2024 02:51 PM 210 mg/dL N Blood chemistry[[id number]] Glucose [Mass/volume] in Serum or Plasma [2345-7] 11/07/2024 12:36 PM 394 mg/dL N Blood chemistry[[id number]] Glucose [Mass/volume] in Serum or Plasma [2345-7] 11/06/2024 04:37 PM 160 mg/dL N Blood chemistry[[id number]] Glucose [Mass/volume] in Serum or Plasma [2345-7] 11/06/2024 01:19 PM 347 mg/dL N Blood chemistry[[id number]] Glucose [Mass/volume] in Serum or Plasma [2345-7] 11/05/2024 04:21 PM 259 mg/dL N Blood chemistry[[id number]] Glucose [Mass/volume] in Serum or Plasma [2345-7] 11/05/2024 02:33 PM 194 mg/dL N Blood chemistry[[id number]] Glucose [Mass/volume] in Serum or Plasma [2345-7] 11/04/2024 12:42 PM 245 mg/dL N Blood chemistry[[id number]] Glucose [Mass/volume] in Serum or Plasma [2345-7] 11/04/2024 12:19 PM 158 mg/dL N Blood chemistry[[id number]] Glucose [Mass/volume] in Serum or Plasma [2345-7] 11/03/2024 02:00 PM 209 mg/dL N Blood chemistry[[id number]] Glucose [Mass/volume] in Serum or Plasma [2345-7] 11/03/2024 11:34 AM 310 mg/dL N Blood chemistry[[id number]] Glucose [Mass/volume] in Serum or Plasma [2345-7] 11/02/2024 12:48 PM 339 mg/dL N Blood chemistry[[id number]] Glucose [Mass/volume] in Serum or Plasma [2345-7] 11/02/2024 12:25 PM 193 mg/dL N Blood chemistry[[id number]] Glucose [Mass/volume] in Serum or Plasma [2345-7] 11/01/2024 03:12 PM 358 mg/dL N Blood chemistry[[id number]] Glucose [Mass/volume] in Serum or Plasma [2345-7] 11/01/2024 12:18 PM 288 mg/dL N Blood chemistry[[id number]] Glucose [Mass/volume] in Serum or Plasma [2345-7] 10/31/2024 02:03 PM 328 mg/dL N Blood chemistry[[id number]] Glucose [Mass/volume] in Serum or Plasma [2345-7] 10/31/2024 11:29 AM 197 mg/dL N Blood chemistry[[id number]] Glucose [Mass/volume] in Serum or Plasma [2345-7] 10/30/2024 12:46 PM 240 mg/dL N Blood chemistry[[id number]] Glucose [Mass/volume] in Serum or Plasma [2345-7] 10/30/2024 11:49 AM 294 mg/dL N Blood chemistry[[id number]] Glucose [Mass/volume] in Serum or Plasma [2345-7] 10/29/2024 04:02 PM 281 mg/dL N Blood chemistry[[id number]] Glucose [Mass/volume] in Serum or Plasma [2345-7] 10/29/2024 01:48 PM 123 mg/dL N Blood chemistry[[id number]] Glucose [Mass/volume] in Serum or Plasma [2345-7] 10/28/2024 01:42 PM 209 mg/dL N Blood chemistry[[id number]] Glucose [Mass/volume] in Serum or Plasma [2345-7] 10/28/2024 01:40 PM 254 mg/dL N Blood chemistry[[id number]] Glucose [Mass/volume] in Serum or Plasma [2345-7] 10/27/2024 04:21 PM 230 mg/dL N Blood chemistry[[id number]] Glucose [Mass/volume] in Serum or Plasma [2345-7] 10/27/2024 11:45 AM 181 mg/dL N Blood chemistry[[id number]] Glucose [Mass/volume] in Serum or Plasma [2345-7] 10/26/2024 02:03 PM 199 mg/dL N Blood chemistry[[id number]] Glucose [Mass/volume] in Serum or Plasma [2345-7] 10/26/2024 11:42 AM 157 mg/dL N Blood chemistry[[id number]] Glucose [Mass/volume] in Serum or Plasma [2345-7] 10/25/2024 12:54 PM 200 mg/dL N Blood chemistry[[id number]] Glucose [Mass/volume] in Serum or Plasma [2345-7] 10/25/2024 11:20 AM 258 mg/dL N Blood chemistry[[id number]] Glucose [Mass/volume] in Serum or Plasma [2345-7] 10/24/2024 12:52 PM 236 mg/dL N Blood chemistry[[id number]] Glucose [Mass/volume] in Serum or Plasma [2345-7] 10/24/2024 11:25 AM 303 mg/dL N Blood chemistry[[id number]] Glucose [Mass/volume] in Serum or Plasma [2345-7] 10/23/2024 12:24 PM 128 mg/dL N Blood chemistry[[id number]] Glucose [Mass/volume] in Serum or Plasma [2345-7] 10/23/2024 11:43 AM 279 mg/dL N Blood chemistry[[id number]] Glucose [Mass/volume] in Serum or Plasma [2345-7] 10/22/2024 03:05 PM 219 mg/dL N Blood chemistry[[id number]] Glucose [Mass/volume] in Serum or Plasma [2345-7] 10/22/2024 01:13 PM 189 mg/dL N Blood chemistry[[id number]] Glucose [Mass/volume] in Serum or Plasma [2345-7] 10/21/2024 12:53 PM 153 mg/dL N Blood chemistry[[id number]] Glucose [Mass/volume] in Serum or Plasma [2345-7] 10/21/2024 12:37 PM 139 mg/dL N Blood chemistry[[id number]] Glucose [Mass/volume] in Serum or Plasma [2345-7] 10/20/2024 03:25 PM 284 mg/dL N Blood chemistry[[id number]] Glucose [Mass/volume] in Serum or Plasma [2345-7] 10/20/2024 01:43 PM 192 mg/dL N Blood chemistry[[id number]] Glucose [Mass/volume] in Serum or Plasma [2345-7] 10/19/2024 01:30 PM 301 mg/dL N Blood chemistry[[id number]] Glucose [Mass/volume] in Serum or Plasma [2345-7] 10/19/2024 01:22 PM 258 mg/dL N Blood chemistry[[id number]] Glucose [Mass/volume] in Serum or Plasma [2345-7] 10/18/2024 02:49 PM 128 mg/dL N Blood chemistry[[id number]] Glucose [Mass/volume] in Serum or Plasma [2345-7] 10/18/2024 01:43 PM 78 mg/dL N Blood chemistry[[id number]] Glucose [Mass/volume] in Serum or Plasma [2345-7] 10/17/2024 02:30 PM 149 mg/dL N Blood chemistry[] Glucose [Mass/volume] in Serum or Plasma [2345-7] 10/17/2024 02:04 PM 306 mg/dL N Blood chemistry[[id number]] Glucose [Mass/volume] in Serum or Plasma [2345-7] 10/16/2024 11:53 AM 194 mg/dL N Blood chemistry[[id number]] Glucose [Mass/volume] in Serum or Plasma [2345-7] 10/16/2024 11:47 AM 172 mg/dL N Blood chemistry[[id number]] Glucose [Mass/volume] in Serum or Plasma [2345-7] 10/15/2024 01:52 PM 242 mg/dL N Blood chemistry[[id number]] Glucose [Mass/volume] in Serum or Plasma [2345-7] 10/15/2024 12:19 PM 227 mg/dL N Blood chemistry[[id number]] Glucose [Mass/volume] in Serum or Plasma [2345-7] 10/14/2024 04:12 PM 146 mg/dL N Blood chemistry[[id number]] Glucose [Mass/volume] in Serum or Plasma [2345-7] 10/14/2024 02:41 PM 215 mg/dL N Blood chemistry[[id number]] Glucose [Mass/volume] in Serum or Plasma [2345-7] 10/13/2024 02:33 PM 142 mg/dL N Blood chemistry[[id number]] Glucose [Mass/volume] in Serum or Plasma [2345-7] 10/12/2024 01:39 PM 188 mg/dL N Blood chemistry[[id number]] Glucose [Mass/volume] in Serum or Plasma [2345-7] 10/12/2024 11:31 AM 158 mg/dL N Blood chemistry[[id number]] Glucose [Mass/volume] in Serum or Plasma [2345-7] 10/11/2024 12:19 PM 180 mg/dL N Blood chemistry[[id number]] Glucose [Mass/volume] in Serum or Plasma [2345-7] 10/11/2024 11:54 AM 216 mg/dL N Blood chemistry[[id number]] Glucose [Mass/volume] in Serum or Plasma [2345-7] 10/10/2024 12:29 PM 201 mg/dL N Blood chemistry[[id number]] Glucose [Mass/volume] in Serum or Plasma [2345-7] 10/10/2024 11:41 AM 225 mg/dL N Blood chemistry[[id number]] Glucose [Mass/volume] in Serum or Plasma [2345-7] 10/09/2024 02:40 PM 197 mg/dL N Blood chemistry[[id number]] Glucose [Mass/volume] in Serum or Plasma [2345-7] 10/09/2024 11:49 AM 194 mg/dL N Blood chemistry[[id number]] Glucose [Mass/volume] in Serum or Plasma [2345-7] 10/08/2024 02:15 PM 248 mg/dL N Blood chemistry[[id number]] Glucose [Mass/volume] in Serum or Plasma [2345-7] 10/08/2024 01:25 PM 119 mg/dL N Blood chemistry[[id number]] Glucose [Mass/volume] in Serum or Plasma [2345-7] 10/07/2024 03:15 PM 199 mg/dL N Blood chemistry[[id number]] Glucose [Mass/volume] in Serum or Plasma [2345-7] 09/04/2024 11:53 AM 156 mg/dL N Blood chemistry[[id number]] Glucose [Mass/volume] in Serum or Plasma [2345-7] 09/03/2024 04:02 PM 223 mg/dL N Blood chemistry[[id number]] Glucose [Mass/volume] in Serum or Plasma [2345-7] 09/03/2024 12:34 PM 276 mg/dL N Blood chemistry[[id number]] Glucose [Mass/volume] in Serum or Plasma [2345-7] 09/02/2024 04:12 PM 254 mg/dL N Blood chemistry[[id number]] Glucose [Mass/volume] in Serum or Plasma [2345-7] 09/02/2024 02:23 PM 211 mg/dL N Blood chemistry[[id number]] Glucose [Mass/volume] in Serum or Plasma [2345-7] 09/01/2024 12:14 PM 231 mg/dL N Blood chemistry[[id number]] Glucose [Mass/volume] in Serum or Plasma [2345-7] 09/01/2024 01:49 PM 184 mg/dL N Blood chemistry[[id number]] Glucose [Mass/volume] in Serum or Plasma [2345-7] 08/31/2024 11:24 AM 259 mg/dL N Blood chemistry[[id number]] Glucose [Mass/volume] in Serum or Plasma [2345-7] 08/31/2024 12:51 PM 260 mg/dL N Blood chemistry[[id number]] Glucose [Mass/volume] in Serum or Plasma [2345-7] 08/30/2024 01:01 PM 251 mg/dL N Blood chemistry[[id number]] Glucose [Mass/volume] in Serum or Plasma [2345-7] 08/30/2024 11:28 AM 164 mg/dL N Blood chemistry[[id number]] Glucose [Mass/volume] in Serum or Plasma [2345-7] 08/29/2024 12:34 PM 318 mg/dL N Blood chemistry[[id number]] Glucose [Mass/volume] in Serum or Plasma [2345-7] 08/29/2024 12:43 PM 107 mg/dL N Blood chemistry[[id number]] Glucose [Mass/volume] in Serum or Plasma [2345-7] 08/28/2024 12:14 PM 232 mg/dL N Blood chemistry[[id number]] Glucose [Mass/volume] in Serum or Plasma [2345-7] 08/28/2024 01:23 PM 116 mg/dL N Blood chemistry[[id number]] Glucose [Mass/volume] in Serum or Plasma [2345-7] 08/27/2024 01:43 PM 274 mg/dL N Blood chemistry[[id number]] Glucose [Mass/volume] in Serum or Plasma [2345-7] 08/27/2024 12:01 PM 166 mg/dL N Blood chemistry[[id number]] Glucose [Mass/volume] in Serum or Plasma [2345-7] 08/26/2024 01:20 PM 242 mg/dL N Blood chemistry[[id number]] Glucose [Mass/volume] in Serum or Plasma [2345-7] 08/26/2024 01:01 PM 114 mg/dL N Blood chemistry[[id number]] Glucose [Mass/volume] in Serum or Plasma [2345-7] 08/25/2024 12:21 PM 190 mg/dL N Blood chemistry[[id number]] Glucose [Mass/volume] in Serum or Plasma [2345-7] 08/25/2024 01:17 PM 187 mg/dL N Blood chemistry[[id number]] Glucose [Mass/volume] in Serum or Plasma [2345-7] 08/24/2024 01:02 PM 194 mg/dL N Blood chemistry[[id number]] Glucose [Mass/volume] in Serum or Plasma [2345-7] 08/24/2024 11:21 AM 150 mg/dL N Blood chemistry[[id number]] Glucose [Mass/volume] in Serum or Plasma [2345-7] 08/23/2024 12:03 PM 252 mg/dL N Blood chemistry[[id number]] Glucose [Mass/volume] in Serum or Plasma [2345-7] 08/23/2024 12:30 PM 178 mg/dL N Blood chemistry[[id number]] Glucose [Mass/volume] in Serum or Plasma [2345-7] 08/22/2024 11:59 AM 230 mg/dL N Blood chemistry[[id number]] Glucose [Mass/volume] in Serum or Plasma [2345-7] 08/22/2024 11:46 AM 166 mg/dL N Blood chemistry[[id number]] Glucose [Mass/volume] in Serum or Plasma [2345-7] 08/21/2024 12:45 PM 324 mg/dL N Blood chemistry[[id number]] Glucose [Mass/volume] in Serum or Plasma [2345-7] 08/21/2024 11:50 AM 121 mg/dL N Blood chemistry[[id number]] Glucose [Mass/volume] in Serum or Plasma [2345-7] 08/20/2024 01:33 PM 262 mg/dL N Blood chemistry[[id number]] Glucose [Mass/volume] in Serum or Plasma [2345-7] 08/20/2024 12:03 PM 116 mg/dL N Blood chemistry[[id number]] Glucose [Mass/volume] in Serum or Plasma [2345-7] 08/19/2024 01:01 PM 204 mg/dL N Blood chemistry[[id number]] Glucose [Mass/volume] in Serum or Plasma [2345-7] 08/19/2024 01:40 PM 183 mg/dL N Blood chemistry[[id number]] Glucose [Mass/volume] in Serum or Plasma [2345-7] 08/18/2024 01:31 PM 421 mg/dL N Blood chemistry[[id number]] Glucose [Mass/volume] in Serum or Plasma [2345-7] 08/18/2024 11:21 AM 252 mg/dL N Blood chemistry[[id number]] Glucose [Mass/volume] in Serum or Plasma [2345-7] 08/17/2024 11:46 AM 248 mg/dL N Blood chemistry[[id number]] Glucose [Mass/volume] in Serum or Plasma [2345-7] 08/17/2024 02:15 PM 121 mg/dL N Blood chemistry[[id number]] Glucose [Mass/volume] in Serum or Plasma [2345-7] 08/16/2024 11:53 AM 210 mg/dL N Blood chemistry[[id number]] Glucose [Mass/volume] in Serum or Plasma [2345-7] 08/16/2024 12:42 PM 126 mg/dL N Blood chemistry[[id number]] Glucose [Mass/volume] in Serum or Plasma [2345-7] 08/15/2024 12:00 PM 163 mg/dL N Blood chemistry[[id number]] Glucose [Mass/volume] in Serum or Plasma [2345-7] 08/15/2024 02:53 PM 131 mg/dL N Blood chemistry[[id number]] Glucose [Mass/volume] in Serum or Plasma [2345-7] 08/14/2024 12:41 PM 227 mg/dL N Blood chemistry[[id number]] Glucose [Mass/volume] in Serum or Plasma [2345-7] 08/14/2024 01:12 PM 125 mg/dL N Blood chemistry[[id number]] Glucose [Mass/volume] in Serum or Plasma [2345-7] 08/13/2024 03:30 PM 145 mg/dL N Blood chemistry[[id number]] Glucose [Mass/volume] in Serum or Plasma [2345-7] 08/13/2024 01:21 PM 112 mg/dL N Blood chemistry[[id number]] Glucose [Mass/volume] in Serum or Plasma [2345-7] 08/12/2024 03:24 PM 112 mg/dL N Blood chemistry[[id number]] Glucose [Mass/volume] in Serum or Plasma [2345-7] 08/12/2024 02:41 PM 191 mg/dL N Blood chemistry[[id number]] Glucose [Mass/volume] in Serum or Plasma [2345-7] 08/11/2024 04:51 PM 279 mg/dL N Blood chemistry[[id number]] Glucose [Mass/volume] in Serum or Plasma [2345-7] 08/11/2024 01:20 PM 143 mg/dL N Blood chemistry[[id number]] Glucose [Mass/volume] in Serum or Plasma [2345-7] 08/10/2024 11:43 AM 116 mg/dL N Blood chemistry[[id number]] Glucose [Mass/volume] in Serum or Plasma [2345-7] 08/10/2024 02:26 PM 180 mg/dL N Blood chemistry[[id number]] Glucose [Mass/volume] in Serum or Plasma [2345-7] 08/09/2024 11:30 AM 251 mg/dL N Blood chemistry[[id number]] Glucose [Mass/volume] in Serum or Plasma [2345-7] 08/09/2024 12:50 PM 103 mg/dL N Blood chemistry[[id number]] Glucose [Mass/volume] in Serum or Plasma [2345-7] 08/08/2024 11:58 AM 361 mg/dL N Blood chemistry[[id number]] Glucose [Mass/volume] in Serum or Plasma [2345-7] 08/08/2024 11:47 AM 108 mg/dL N Blood chemistry[[id number]] Glucose [Mass/volume] in Serum or Plasma [2345-7] 08/07/2024 12:49 PM 259 mg/dL N Blood chemistry[[id number]] Glucose [Mass/volume] in Serum or Plasma [2345-7] 08/07/2024 01:45 PM 101 mg/dL N Blood chemistry[[id number]] Glucose [Mass/volume] in Serum or Plasma [2345-7] 08/06/2024 12:37 PM 270 mg/dL N Blood chemistry[[id number]] Glucose [Mass/volume] in Serum or Plasma [2345-7] 08/06/2024 12:21 PM 95 mg/dL N Blood chemistry[[id number]] Glucose [Mass/volume] in Serum or Plasma [2345-7] 08/05/2024 04:37 PM 180 mg/dL N Blood chemistry[[id number]] Glucose [Mass/volume] in Serum or Plasma [2345-7] 08/05/2024 12:04 PM 104 mg/dL N Blood chemistry[[id number]] Glucose [Mass/volume] in Serum or Plasma [2345-7] 08/04/2024 11:57 AM 200 mg/dL N Blood chemistry[[id number]] Glucose [Mass/volume] in Serum or Plasma [2345-7] 08/04/2024 02:43 PM 190 mg/dL N Blood chemistry[[id number]] Glucose [Mass/volume] in Serum or Plasma [2345-7] 08/03/2024 12:02 PM 164 mg/dL N Blood chemistry[[id number]] Glucose [Mass/volume] in Serum or Plasma [2345-7] 08/03/2024 03:24 PM 127 mg/dL N Blood chemistry[[id number]] Glucose [Mass/volume] in Serum or Plasma [2345-7] 08/02/2024 12:04 PM 187 mg/dL N Blood chemistry[[id number]] Glucose [Mass/volume] in Serum or Plasma [2345-7] 08/02/2024 12:17 PM 118 mg/dL N Blood chemistry[[id number]] Glucose [Mass/volume] in Serum or Plasma [2345-7] 08/01/2024 11:43 AM 279 mg/dL N Blood chemistry[[id number]] Glucose [Mass/volume] in Serum or Plasma [2345-7] 08/01/2024 02:49 PM 145 mg/dL N Blood chemistry[[id number]] Glucose [Mass/volume] in Serum or Plasma [2345-7] 07/31/2024 01:14 PM 387 mg/dL N Blood chemistry[[id number]] Glucose [Mass/volume] in Serum or Plasma [2345-7] 07/31/2024 12:33 PM 126 mg/dL N Blood chemistry[[id number]] Glucose [Mass/volume] in Serum or Plasma [2345-7] 07/30/2024 12:33 PM 311 mg/dL N Blood chemistry[[id number]] Glucose [Mass/volume] in Serum or Plasma [2345-7] 07/30/2024 02:21 PM 103 mg/dL N Blood chemistry[[id number]] Glucose [Mass/volume] in Serum or Plasma [2345-7] 07/29/2024 02:51 PM 391 mg/dL N Blood chemistry[[id number]] Glucose [Mass/volume] in Serum or Plasma [2345-7] 07/29/2024 11:26 AM 188 mg/dL N Blood chemistry[[id number]] Glucose [Mass/volume] in Serum or Plasma [2345-7] 07/28/2024 12:31 PM 393 mg/dL N Blood chemistry[[id number]] Glucose [Mass/volume] in Serum or Plasma [2345-7] 07/28/2024 02:10 PM 141 mg/dL N Blood chemistry[[id number]] Glucose [Mass/volume] in Serum or Plasma [2345-7] 07/27/2024 12:30 PM 274 mg/dL N Blood chemistry[[id number]] Glucose [Mass/volume] in Serum or Plasma [2345-7] 07/27/2024 02:09 PM 110 mg/dL N Blood chemistry[[id number]] Glucose [Mass/volume] in Serum or Plasma [2345-7] 07/26/2024 11:49 AM 361 mg/dL N Blood chemistry[[id number]] Glucose [Mass/volume] in Serum or Plasma [2345-7] 07/26/2024 03:51 PM 117 mg/dL N Blood chemistry[[id number]] Glucose [Mass/volume] in Serum or Plasma [2345-7] 07/25/2024 12:00 PM 285 mg/dL N Blood chemistry[[id number]] Glucose [Mass/volume] in Serum or Plasma [2345-7] 07/25/2024 11:54 AM 156 mg/dL N Blood chemistry[[id number]] Glucose [Mass/volume] in Serum or Plasma [2345-7] 07/24/2024 12:39 PM 340 mg/dL N Blood chemistry[[id number]] Glucose [Mass/volume] in Serum or Plasma [2345-7] 07/24/2024 03:28 PM 99 mg/dL N Blood chemistry[[id number]] Glucose [Mass/volume] in Serum or Plasma [2345-7] 07/23/2024 01:22 PM 326 mg/dL N Blood chemistry[[id number]] Glucose [Mass/volume] in Serum or Plasma [2345-7] 07/23/2024 11:59 AM 106 mg/dL N Blood chemistry[[id number]] Glucose [Mass/volume] in Serum or Plasma [2345-7] 07/22/2024 11:37 AM 278 mg/dL N Blood chemistry[[id number]] Glucose [Mass/volume] in Serum or Plasma [2345-7] 07/22/2024 12:08 PM 62 mg/dL N Blood chemistry[[id number]] Glucose [Mass/volume] in Serum or Plasma [2345-7] 07/21/2024 12:26 PM 200 mg/dL N Blood chemistry[[id number]] Glucose [Mass/volume] in Serum or Plasma [2345-7] 07/21/2024 01:19 PM 152 mg/dL N Blood chemistry[[id number]] Glucose [Mass/volume] in Serum or Plasma [2345-7] 07/20/2024 11:43 AM 301 mg/dL N Blood chemistry[[id number]] Glucose [Mass/volume] in Serum or Plasma [2345-7] 07/20/2024 11:04 AM 158 mg/dL N Blood chemistry[[id number]] Glucose [Mass/volume] in Serum or Plasma [2345-7] 07/19/2024 11:34 AM 228 mg/dL N Blood chemistry[[id number]] Glucose [Mass/volume] in Serum or Plasma [2345-7] 07/19/2024 11:28 AM 104 mg/dL N Blood chemistry[[id number]] Glucose [Mass/volume] in Serum or Plasma [2345-7] 07/18/2024 12:06 PM 246 mg/dL N Blood chemistry[[id number]] Glucose [Mass/volume] in Serum or Plasma [2345-7] 07/18/2024 12:17 PM 172 mg/dL N Blood chemistry[[id number]] Glucose [Mass/volume] in Serum or Plasma [2345-7] 07/17/2024 12:09 PM 233 mg/dL N Blood chemistry[[id number]] Glucose [Mass/volume] in Serum or Plasma [2345-7] 07/17/2024 11:49 AM 233 mg/dL N Blood chemistry[[id number]] Glucose [Mass/volume] in Serum or Plasma [2345-7] 07/17/2024 01:53 PM 121 mg/dL N Blood chemistry[[id number]] Glucose [Mass/volume] in Serum or Plasma [2345-7] 07/16/2024 12:34 PM 541 mg/dL N Blood chemistry[[id number]] Glucose [Mass/volume] in Serum or Plasma [2345-7] 07/16/2024 12:40 PM 190 mg/dL N Blood chemistry[[id number]] Glucose [Mass/volume] in Serum or Plasma [2345-7] 07/15/2024 12:24 PM 185 mg/dL N Blood chemistry[[id number]] Glucose [Mass/volume] in Serum or Plasma [2345-7] 07/15/2024 11:55 AM 92 mg/dL N Blood chemistry[[id number]] Glucose [Mass/volume] in Serum or Plasma [2345-7] 07/14/2024 01:03 PM 389 mg/dL N Blood chemistry[[id number]] Glucose [Mass/volume] in Serum or Plasma [2345-7] 07/14/2024 12:13 PM 120 mg/dL N Blood chemistry[[id number]] Glucose [Mass/volume] in Serum or Plasma [2345-7] 07/13/2024 01:11 PM 185 mg/dL N Blood chemistry[[id number]] Glucose [Mass/volume] in Serum or Plasma [2345-7] 07/13/2024 11:53 AM 120 mg/dL N Blood chemistry[[id number]] Glucose [Mass/volume] in Serum or Plasma [2345-7] 07/12/2024 11:40 AM 254 mg/dL N Glucose [Mass/volume] in Serum or Plasma [2345-7] 07/12/2024 11:40 AM 254 mg/dL N Blood chemistry[[id number]] Glucose [Mass/volume] in Serum or Plasma [2345-7] 07/12/2024 01:21 PM 151 mg/dL N Blood chemistry[[id number]] Glucose [Mass/volume] in Serum or Plasma [2345-7] 07/11/2024 11:45 AM 223 mg/dL N Blood chemistry[[id number]] Glucose [Mass/volume] in Serum or Plasma [2345-7] 07/11/2024 02:19 PM 256 mg/dL N Blood chemistry[[id number]] Glucose [Mass/volume] in Serum or Plasma [2345-7] 07/10/2024 02:18 PM 256 mg/dL N Blood chemistry[[id number]] Glucose [Mass/volume] in Serum or Plasma [2345-7] 07/10/2024 12:34 PM 157 mg/dL N Blood chemistry[[id number]] Glucose [Mass/volume] in Serum or Plasma [2345-7] 07/09/2024 12:28 PM 370 mg/dL N Blood chemistry[[id number]] Glucose [Mass/volume] in Serum or Plasma [2345-7] 07/09/2024 11:23 AM 202 mg/dL N Blood chemistry[[id number]] Glucose [Mass/volume] in Serum or Plasma [2345-7] 07/08/2024 04:20 PM 124 mg/dL N Blood chemistry[[id number]] Glucose [Mass/volume] in Serum or Plasma [2345-7] 07/08/2024 01:37 PM 285 mg/dL N Blood chemistry[[id number]] Glucose [Mass/volume] in Serum or Plasma [2345-7] 07/07/2024 01:40 PM 375 mg/dL N Blood chemistry[[id number]] Glucose [Mass/volume] in Serum or Plasma [2345-7] 07/07/2024 01:59 PM 132 mg/dL N Blood chemistry[[id number]] Glucose [Mass/volume] in Serum or Plasma [2345-7] 07/06/2024 12:51 PM 239 mg/dL N Blood chemistry[[id number]] Glucose [Mass/volume] in Serum or Plasma [2345-7] 07/06/2024 01:40 PM 128 mg/dL N Blood chemistry[[id number]] Glucose [Mass/volume] in Serum or Plasma [2345-7] 07/05/2024 12:43 PM 131 mg/dL N Blood chemistry[[id number]] Glucose [Mass/volume] in Serum or Plasma [2345-7] 07/05/2024 05:30 PM 109 mg/dL N Blood chemistry[[id number]] Glucose [Mass/volume] in Serum or Plasma [2345-7] 07/04/2024 12:43 PM 289 mg/dL N Blood chemistry[[id number]] Glucose [Mass/volume] in Serum or Plasma [2345-7] 07/04/2024 01:52 PM 202 mg/dL N Blood chemistry[[id number]] Glucose [Mass/volume] in Serum or Plasma [2345-7] 07/03/2024 01:26 PM 221 mg/dL N Blood chemistry[[id number]] Glucose [Mass/volume] in Serum or Plasma [2345-7] 07/03/2024 12:50 PM 221 mg/dL N Blood chemistry[[id number]] Glucose [Mass/volume] in Serum or Plasma [2345-7] 07/02/2024 01:45 PM 203 mg/dL N Blood chemistry[[id number]] Glucose [Mass/volume] in Serum or Plasma [2345-7] 07/02/2024 03:22 PM 133 mg/dL N Blood chemistry[[id number]] Glucose [Mass/volume] in Serum or Plasma [2345-7] 07/01/2024 02:07 PM 362 mg/dL N Blood chemistry[[id number]] Glucose [Mass/volume] in Serum or Plasma [2345-7] 07/01/2024 01:47 PM 130 mg/dL N Blood chemistry[[id number]] Glucose [Mass/volume] in Serum or Plasma [2345-7] 06/30/2024 02:08 PM 277 mg/dL N Blood chemistry[[id number]] Glucose [Mass/volume] in Serum or Plasma [2345-7] 06/30/2024 02:03 PM 132 mg/dL N Blood chemistry[[id number]] Glucose [Mass/volume] in Serum or Plasma [2345-7] 06/29/2024 02:22 PM 185 mg/dL N Blood chemistry[[id number]] Glucose [Mass/volume] in Serum or Plasma [2345-7] 06/29/2024 02:13 PM 158 mg/dL N Blood chemistry[[id number]] Glucose [Mass/volume] in Serum or Plasma [2345-7] 06/29/2024 01:53 PM 200 mg/dL N Blood chemistry[[id number]] Glucose [Mass/volume] in Serum or Plasma [2345-7] 06/28/2024 12:59 PM 155 mg/dL N Blood chemistry[[id number]] Glucose [Mass/volume] in Serum or Plasma [2345-7] 06/28/2024 12:44 PM 312 mg/dL N Blood chemistry[[id number]] Glucose [Mass/volume] in Serum or Plasma [2345-7] 06/27/2024 12:57 PM 315 mg/dL N Blood chemistry[[id number]] Glucose [Mass/volume] in Serum or Plasma [2345-7] 06/26/2024 02:58 PM 185 mg/dL N Blood chemistry[[id number]] Glucose [Mass/volume] in Serum or Plasma [2345-7] 06/26/2024 12:58 PM 248 mg/dL N Blood chemistry[[id number]] Glucose [Mass/volume] in Serum or Plasma [2345-7] 2024 01:19 PM 195 mg/dL N Blood chemistry[[id number]] Glucose [Mass/volume] in Serum or Plasma [2345-7] 2024 02:13 PM 127 mg/dL N Blood chemistry[[id number]] Glucose [Mass/volume] in Serum or Plasma [2345-7] 06/24/2024 04:54 PM 133 mg/dL N Blood chemistry[[id number]] Glucose [Mass/volume] in Serum or Plasma [2345-7] 06/24/2024 01:26 PM 296 mg/dL N Blood chemistry[[id number]] Glucose [Mass/volume] in Serum or Plasma [2345-7] 06/23/2024 02:01 PM 267 mg/dL N Blood chemistry[[id number]] Glucose [Mass/volume] in Serum or Plasma [2345-7] 06/23/2024 01:18 PM 94 mg/dL N Blood chemistry[[id number]] Glucose [Mass/volume] in Serum or Plasma [2345-7] 06/22/2024 12:36 PM 164 mg/dL N Blood chemistry[[id number]] Glucose [Mass/volume] in Serum or Plasma [2345-7] 06/22/2024 12:59 PM 98 mg/dL N Blood chemistry[[id number]] Glucose [Mass/volume] in Serum or Plasma [2345-7] 06/21/2024 01:48 PM 172 mg/dL N Blood chemistry[[id number]] Glucose [Mass/volume] in Serum or Plasma [2345-7] 06/21/2024 01:21 PM 172 mg/dL N Blood chemistry[[id number]] Glucose [Mass/volume] in Serum or Plasma [2345-7] 06/21/2024 02:07 PM 102 mg/dL N Blood chemistry[[id number]] Glucose [Mass/volume] in Serum or Plasma [2345-7] 06/20/2024 01:28 PM 128 mg/dL N Blood chemistry[[id number]] Glucose [Mass/volume] in Serum or Plasma [2345-7] 06/20/2024 01:08 PM 128 mg/dL N Blood chemistry[[id number]] Glucose [Mass/volume] in Serum or Plasma [2345-7] 06/19/2024 06:15 PM 105 mg/dL N Blood chemistry[[id number]] Glucose [Mass/volume] in Serum or Plasma [2345-7] 06/19/2024 01:44 PM 90 mg/dL N Blood chemistry[[id number]] Glucose [Mass/volume] in Serum or Plasma [2345-7] 06/19/2024 01:37 PM 119 mg/dL N Blood chemistry[[id number]] Glucose [Mass/volume] in Serum or Plasma [2345-7] 06/19/2024 10:25 AM 106 mg/dL N Blood chemistry[[id number]] Glucose [Mass/volume] in Serum or Plasma [2345-7] 06/18/2024 01:41 PM 139 mg/dL N Blood chemistry[[id number]] Glucose [Mass/volume] in Serum or Plasma [2345-7] 06/18/2024 11:46 AM 102 mg/dL N Blood chemistry[[id number]] Glucose [Mass/volume] in Serum or Plasma [2345-7] 06/18/2024 02:24 PM 108 mg/dL N Blood chemistry[[id number]] Glucose [Mass/volume] in Serum or Plasma [2345-7] 06/18/2024 08:27 AM 127 mg/dL N Blood chemistry[[id number]] Glucose [Mass/volume] in Serum or Plasma [2345-7] 06/17/2024 05:23 PM 144 mg/dL N Blood chemistry[[id number]] Glucose [Mass/volume] in Serum or Plasma [2345-7] 06/17/2024 01:34 PM 247 mg/dL N Blood chemistry[[id number]] Glucose [Mass/volume] in Serum or Plasma [2345-7] 06/17/2024 01:09 PM 88 mg/dL N Blood chemistry[[id number]] Glucose [Mass/volume] in Serum or Plasma [2345-7] 06/17/2024 11:25 AM 193 mg/dL N Blood chemistry[[id number]] Glucose [Mass/volume] in Serum or Plasma [2345-7] 06/16/2024 02:26 PM 60 mg/dL N Blood chemistry[[id number]] Glucose [Mass/volume] in Serum or Plasma [2345-7] 06/16/2024 11:01 AM 213 mg/dL N Blood chemistry[[id number]] Glucose [Mass/volume] in Serum or Plasma [2345-7] 06/16/2024 05:59 PM 202 mg/dL N Blood chemistry[[id number]] Glucose [Mass/volume] in Serum or Plasma [2345-7] 06/16/2024 02:28 PM 85 mg/dL N Blood chemistry[[id number]] Glucose [Mass/volume] in Serum or Plasma [2345-7] 06/15/2024 05:10 PM 194 mg/dL N Blood chemistry[[id number]] Glucose [Mass/volume] in Serum or Plasma [2345-7] 06/15/2024 02:37 PM 141 mg/dL N Blood chemistry[[id number]] Glucose [Mass/volume] in Serum or Plasma [2345-7] 06/15/2024 01:51 PM 372 mg/dL N Blood chemistry[[id number]] Glucose [Mass/volume] in Serum or Plasma [2345-7] 06/15/2024 11:31 AM 85 mg/dL N Blood chemistry[[id number]] Glucose [Mass/volume] in Serum or Plasma [2345-7] 06/14/2024 02:26 PM 182 mg/dL N Blood chemistry[[id number]] Glucose [Mass/volume] in Serum or Plasma [2345-7] 06/14/2024 12:50 PM 193 mg/dL N Blood chemistry[[id number]] Glucose [Mass/volume] in Serum or Plasma [2345-7] 06/14/2024 11:06 AM 154 mg/dL N Blood chemistry[[id number]] Glucose [Mass/volume] in Serum or Plasma [2345-7] 06/14/2024 07:12 AM 203 mg/dL N Blood chemistry[[id number]] Glucose [Mass/volume] in Serum or Plasma [2345-7] 06/13/2024 06:10 PM 109 mg/dL N Blood chemistry[[id number]] Glucose [Mass/volume] in Serum or Plasma [2345-7] 06/13/2024 01:09 PM 120 mg/dL N Blood chemistry[[id number]] Glucose [Mass/volume] in Serum or Plasma [2345-7] 06/13/2024 12:40 PM 107 mg/dL N Blood chemistry[[id number]] Glucose [Mass/volume] in Serum or Plasma [2345-7] 06/13/2024 10:52 AM 185 mg/dL N Blood chemistry[[id number]] Glucose [Mass/volume] in Serum or Plasma [2345-7] 06/12/2024 02:20 PM 177 mg/dL N Blood chemistry[[id number]] Glucose [Mass/volume] in Serum or Plasma [2345-7] 06/12/2024 06:15 PM 133 mg/dL N Blood chemistry[[id number]] Glucose [Mass/volume] in Serum or Plasma [2345-7] 06/12/2024 04:05 PM 99 mg/dL N Blood chemistry[[id number]] Glucose [Mass/volume] in Serum or Plasma [2345-7] 06/12/2024 10:39 AM 119 mg/dL N Blood chemistry[[id number]] Glucose [Mass/volume] in Serum or Plasma [2345-7] 06/11/2024 05:58 PM 235 mg/dL N Blood chemistry[[id number]] Glucose [Mass/volume] in Serum or Plasma [2345-7] 06/11/2024 03:37 PM 207 mg/dL N Blood chemistry[[id number]] Glucose [Mass/volume] in Serum or Plasma [2345-7] 06/11/2024 01:43 PM 191 mg/dL N Blood chemistry[[id number]] Glucose [Mass/volume] in Serum or Plasma [2345-7] 06/11/2024 10:57 AM 188 mg/dL N Blood chemistry[[id number]] Glucose [Mass/volume] in Serum or Plasma [2345-7] 06/10/2024 02:30 PM 226 mg/dL N Blood chemistry[[id number]] Glucose [Mass/volume] in Serum or Plasma [2345-7] 06/10/2024 12:35 PM 152 mg/dL N Blood chemistry[[id number]] Glucose [Mass/volume] in Serum or Plasma [2345-7] 06/10/2024 06:37 PM 242 mg/dL N Glucose [Mass/volume] in Serum or Plasma [2345-7] 06/10/2024 06:37 PM 138 mg/dL N Blood chemistry[[id number]] Glucose [Mass/volume] in Serum or Plasma [2345-7] 06/09/2024 02:01 PM 212 mg/dL N Blood chemistry[[id number]] Glucose [Mass/volume] in Serum or Plasma [2345-7] 06/09/2024 06:51 PM 123 mg/dL N Blood chemistry[[id number]] Glucose [Mass/volume] in Serum or Plasma [2345-7] 06/09/2024 01:08 PM 132 mg/dL N Blood chemistry[[id number]] Glucose [Mass/volume] in Serum or Plasma [2345-7] 06/09/2024 11:42 AM 225 mg/dL N Blood chemistry[[id number]] Glucose [Mass/volume] in Serum or Plasma [2345-7] 06/08/2024 12:45 PM 221 mg/dL N Blood chemistry[[id number]] Glucose [Mass/volume] in Serum or Plasma [2345-7] 06/08/2024 06:12 PM 141 mg/dL N Blood chemistry[[id number]] Glucose [Mass/volume] in Serum or Plasma [2345-7] 06/08/2024 01:49 PM 158 mg/dL N Blood chemistry[[id number]] Glucose [Mass/volume] in Serum or Plasma [2345-7] 06/08/2024 11:18 AM 294 mg/dL N Blood chemistry[[id number]] Glucose [Mass/volume] in Serum or Plasma [2345-7] 06/07/2024 12:46 PM 171 mg/dL N Blood chemistry[[id number]] Glucose [Mass/volume] in Serum or Plasma [2345-7] 06/07/2024 01:02 PM 113 mg/dL N Blood chemistry[[id number]] Glucose [Mass/volume] in Serum or Plasma [2345-7] 06/07/2024 11:17 AM 192 mg/dL N Blood chemistry[[id number]] Glucose [Mass/volume] in Serum or Plasma [2345-7] 06/07/2024 11:16 AM 116 mg/dL N Blood chemistry[[id number]] Glucose [Mass/volume] in Serum or Plasma [2345-7] 06/06/2024 01:08 PM 82 mg/dL N Blood chemistry[[id number]] Glucose [Mass/volume] in Serum or Plasma [2345-7] 06/06/2024 06:38 PM 150 mg/dL N Blood chemistry[[id number]] Glucose [Mass/volume] in Serum or Plasma [2345-7] 06/06/2024 01:39 PM 131 mg/dL N Blood chemistry[[id number]] Glucose [Mass/volume] in Serum or Plasma [2345-7] 06/06/2024 10:34 AM 162 mg/dL N Blood chemistry[[id number]] Glucose [Mass/volume] in Serum or Plasma [2345-7] 06/05/2024 03:17 PM 164 mg/dL N Blood chemistry[[id number]] Glucose [Mass/volume] in Serum or Plasma [2345-7] 06/05/2024 02:11 PM 173 mg/dL N Blood chemistry[[id number]] Glucose [Mass/volume] in Serum or Plasma [2345-7] 06/05/2024 10:53 AM 254 mg/dL N Blood chemistry[[id number]] Glucose [Mass/volume] in Serum or Plasma [2345-7] 06/04/2024 02:15 PM 140 mg/dL N Blood chemistry[[id number]] Glucose [Mass/volume] in Serum or Plasma [2345-7] 06/04/2024 11:25 AM 136 mg/dL N Blood chemistry[[id number]] Glucose [Mass/volume] in Serum or Plasma [2345-7] 06/04/2024 02:32 PM 130 mg/dL N Blood chemistry[[id number]] Glucose [Mass/volume] in Serum or Plasma [2345-7] 06/04/2024 07:40 AM 136 mg/dL N Blood chemistry[[id number]] Glucose [Mass/volume] in Serum or Plasma [2345-7] 06/03/2024 02:12 PM 249 mg/dL N Blood chemistry[[id number]] Glucose [Mass/volume] in Serum or Plasma [2345-7] 06/03/2024 10:36 AM 285 mg/dL N Blood chemistry[[id number]] Glucose [Mass/volume] in Serum or Plasma [2345-7] 06/03/2024 02:58 PM 210 mg/dL N Blood chemistry[[id number]] Glucose [Mass/volume] in Serum or Plasma [2345-7] 06/02/2024 03:46 PM 325 mg/dL N Blood chemistry[[id number]] Glucose [Mass/volume] in Serum or Plasma [2345-7] 06/02/2024 12:32 PM 211 mg/dL N Blood chemistry[[id number]] Glucose [Mass/volume] in Serum or Plasma [2345-7] 06/02/2024 03:39 PM 242 mg/dL N Blood chemistry[[id number]] Glucose [Mass/volume] in Serum or Plasma [2345-7] 06/02/2024 07:07 AM 165 mg/dL N Blood chemistry[[id number]] Glucose [Mass/volume] in Serum or Plasma [2345-7] 06/01/2024 05:28 PM 312 mg/dL N Blood chemistry[[id number]] Glucose [Mass/volume] in Serum or Plasma [2345-7] 06/01/2024 01:32 PM 143 mg/dL N Blood chemistry[[id number]] Glucose [Mass/volume] in Serum or Plasma [2345-7] 06/01/2024 11:06 AM 111 mg/dL N Blood chemistry[[id number]] Glucose [Mass/volume] in Serum or Plasma [2345-7] 06/01/2024 11:05 AM 109 mg/dL N Blood chemistry[[id number]] Glucose [Mass/volume] in Serum or Plasma [2345-7] 05/31/2024 02:24 PM 253 mg/dL N Blood chemistry[[id number]] Glucose [Mass/volume] in Serum or Plasma [2345-7] 05/31/2024 05:02 PM 114 mg/dL N Blood chemistry[[id number]] Glucose [Mass/volume] in Serum or Plasma [2345-7] 05/31/2024 12:35 PM 103 mg/dL N Blood chemistry[[id number]] Glucose [Mass/volume] in Serum or Plasma [2345-7] 05/31/2024 08:37 AM 101 mg/dL N Blood chemistry[[id number]] Glucose [Mass/volume] in Serum or Plasma [2345-7] 05/30/2024 06:39 PM 224 mg/dL N Blood chemistry[[id number]] Glucose [Mass/volume] in Serum or Plasma [2345-7] 05/30/2024 01:05 PM 145 mg/dL N Blood chemistry[[id number]] Glucose [Mass/volume] in Serum or Plasma [2345-7] 05/30/2024 12:35 PM 97 mg/dL N Blood chemistry[[id number]] Glucose [Mass/volume] in Serum or Plasma [2345-7] 05/29/2024 01:28 PM 159 mg/dL N Blood chemistry[[id number]] Glucose [Mass/volume] in Serum or Plasma [2345-7] 05/29/2024 05:43 PM 181 mg/dL N Blood chemistry[] Glucose [Mass/volume] in Serum or Plasma [2345-7] 05/29/2024 01:11 PM 113 mg/dL N Blood chemistry[] Glucose [Mass/volume] in Serum or Plasma [2345-7] 05/29/2024 12:37 PM 122 mg/dL N Blood chemistry[] Glucose [Mass/volume] in Serum or Plasma [2345-7] 05/28/2024 05:31 PM 124 mg/dL N Blood chemistry[] Glucose [Mass/volume] in Serum or Plasma [2345-7] 05/28/2024 05:05 PM 76 mg/dL N Blood chemistry[] Glucose [Mass/volume] in Serum or Plasma [2345-7] 05/28/2024 12:40 PM 250 mg/dL N Blood chemistry[] Glucose [Mass/volume] in Serum or Plasma [2345-7] 05/27/2024 02:24 PM 117 mg/dL N Blood chemistry[[id number]] Glucose [Mass/volume] in Serum or Plasma [2345-7] 05/27/2024 10:29 AM 157 mg/dL N Blood chemistry[[id number]] Glucose [Mass/volume] in Serum or Plasma [2345-7] 05/27/2024 05:04 PM 206 mg/dL N Blood chemistry[[id number]] Glucose [Mass/volume] in Serum or Plasma [2345-7] 05/27/2024 01:59 PM 120 mg/dL N Blood chemistry[[id number]] Glucose [Mass/volume] in Serum or Plasma [2345-7] 05/26/2024 02:58 PM 159 mg/dL N Blood chemistry[[id number]] Glucose [Mass/volume] in Serum or Plasma [2345-7] 05/26/2024 05:06 PM 145 mg/dL N Blood chemistry[[id number]] Glucose [Mass/volume] in Serum or Plasma [2345-7] 05/26/2024 03:54 PM 99 mg/dL N Blood chemistry[[id number]] Glucose [Mass/volume] in Serum or Plasma [2345-7] 05/26/2024 10:57 AM 101 mg/dL N Blood chemistry[[id number]] Glucose [Mass/volume] in Serum or Plasma [2345-7] 05/25/2024 01:09 PM 156 mg/dL N Blood chemistry[[id number]] Glucose [Mass/volume] in Serum or Plasma [2345-7] 05/25/2024 03:49 PM 96 mg/dL N Blood chemistry[[id number]] Glucose [Mass/volume] in Serum or Plasma [2345-7] 05/25/2024 11:14 AM 127 mg/dL N Blood chemistry[[id number]] Glucose [Mass/volume] in Serum or Plasma [2345-7] 05/25/2024 07:40 AM 226 mg/dL N Blood chemistry[[id number]] Glucose [Mass/volume] in Serum or Plasma [2345-7] 05/24/2024 12:47 PM 169 mg/dL N Blood chemistry[[id number]] Glucose [Mass/volume] in Serum or Plasma [2345-7] 05/24/2024 01:37 PM 112 mg/dL N Blood chemistry[[id number]] Glucose [Mass/volume] in Serum or Plasma [2345-7] 05/24/2024 09:47 AM 226 mg/dL N Blood chemistry[[id number]] Glucose [Mass/volume] in Serum or Plasma [2345-7] 05/24/2024 09:33 AM 131 mg/dL N Blood chemistry[[id number]] Glucose [Mass/volume] in Serum or Plasma [2345-7] 05/23/2024 12:53 PM 149 mg/dL N Blood chemistry[[id number]] Glucose [Mass/volume] in Serum or Plasma [2345-7] 05/23/2024 05:58 PM 158 mg/dL N Blood chemistry[[id number]] Glucose [Mass/volume] in Serum or Plasma [2345-7] 05/23/2024 01:14 PM 123 mg/dL N Blood chemistry[[id number]] Glucose [Mass/volume] in Serum or Plasma [2345-7] 05/23/2024 10:28 AM 140 mg/dL N Blood chemistry[[id number]] Glucose [Mass/volume] in Serum or Plasma [2345-7] 05/22/2024 05:34 PM 212 mg/dL N Blood chemistry[[id number]] Glucose [Mass/volume] in Serum or Plasma [2345-7] 05/22/2024 01:43 PM 183 mg/dL N Blood chemistry[[id number]] Glucose [Mass/volume] in Serum or Plasma [2345-7] 05/22/2024 01:34 PM 171 mg/dL N Blood chemistry[[id number]] Glucose [Mass/volume] in Serum or Plasma [2345-7] 05/21/2024 01:06 PM 178 mg/dL N Blood chemistry[[id number]] Glucose [Mass/volume] in Serum or Plasma [2345-7] 05/21/2024 11:27 AM 134 mg/dL N Blood chemistry[[id number]] Glucose [Mass/volume] in Serum or Plasma [2345-7] 05/21/2024 09:56 AM 154 mg/dL N Blood chemistry[[id number]] Glucose [Mass/volume] in Serum or Plasma [2345-7] 05/21/2024 02:14 PM 137 mg/dL N Blood chemistry[[id number]] Glucose [Mass/volume] in Serum or Plasma [2345-7] 05/20/2024 05:18 PM 99 mg/dL N Glucose [Mass/volume] in Serum or Plasma [2345-7] 05/20/2024 05:18 PM 78 mg/dL N Blood chemistry[[id number]] Glucose [Mass/volume] in Serum or Plasma [2345-7] 05/20/2024 02:25 PM 188 mg/dL N Blood chemistry[[id number]] Glucose [Mass/volume] in Serum or Plasma [2345-7] 05/20/2024 11:33 AM 98 mg/dL N Blood chemistry[[id number]] Glucose [Mass/volume] in Serum or Plasma [2345-7] 05/19/2024 05:06 PM 115 mg/dL N Blood chemistry[[id number]] Glucose [Mass/volume] in Serum or Plasma [2345-7] 05/19/2024 02:11 PM 106 mg/dL N Blood chemistry[[id number]] Glucose [Mass/volume] in Serum or Plasma [2345-7] 05/19/2024 12:49 PM 84 mg/dL N Blood chemistry[[id number]] Glucose [Mass/volume] in Serum or Plasma [2345-7] 05/19/2024 10:46 AM 123 mg/dL N Blood chemistry[[id number]] Glucose [Mass/volume] in Serum or Plasma [2345-7] 05/18/2024 02:17 PM 129 mg/dL N Blood chemistry[[id number]] Glucose [Mass/volume] in Serum or Plasma [2345-7] 05/18/2024 03:09 PM 148 mg/dL N Blood chemistry[[id number]] Glucose [Mass/volume] in Serum or Plasma [2345-7] 05/18/2024 11:10 AM 135 mg/dL N Blood chemistry[[id number]] Glucose [Mass/volume] in Serum or Plasma [2345-7] 05/18/2024 07:13 AM 126 mg/dL N Blood chemistry[[id number]] Glucose [Mass/volume] in Serum or Plasma [2345-7] 05/17/2024 12:50 PM 253 mg/dL N Blood chemistry[[id number]] Glucose [Mass/volume] in Serum or Plasma [2345-7] 05/17/2024 05:28 PM 142 mg/dL N Blood chemistry[[id number]] Glucose [Mass/volume] in Serum or Plasma [2345-7] 05/17/2024 11:35 AM 224 mg/dL N Blood chemistry[[id number]] Glucose [Mass/volume] in Serum or Plasma [2345-7] 05/16/2024 05:41 PM 163 mg/dL N Blood chemistry[[id number]] Glucose [Mass/volume] in Serum or Plasma [2345-7] 05/16/2024 01:19 PM 144 mg/dL N Blood chemistry[[id number]] Glucose [Mass/volume] in Serum or Plasma [2345-7] 05/16/2024 12:36 PM 104 mg/dL N Blood chemistry[[id number]] Glucose [Mass/volume] in Serum or Plasma [2345-7] 05/16/2024 09:35 AM 134 mg/dL N Blood chemistry[[id number]] Glucose [Mass/volume] in Serum or Plasma [2345-7] 05/15/2024 12:56 PM 174 mg/dL N Blood chemistry[[id number]] Glucose [Mass/volume] in Serum or Plasma [2345-7] 05/15/2024 05:31 PM 117 mg/dL N Blood chemistry[[id number]] Glucose [Mass/volume] in Serum or Plasma [2345-7] 05/15/2024 01:19 PM 231 mg/dL N Blood chemistry[[id number]] Glucose [Mass/volume] in Serum or Plasma [2345-7] 05/14/2024 02:18 PM 205 mg/dL N Blood chemistry[[id number]] Glucose [Mass/volume] in Serum or Plasma [2345-7] 05/14/2024 01:35 PM 176 mg/dL N Blood chemistry[[id number]] Glucose [Mass/volume] in Serum or Plasma [2345-7] 05/14/2024 10:55 AM 256 mg/dL N Blood chemistry[[id number]] Glucose [Mass/volume] in Serum or Plasma [2345-7] 05/14/2024 07:21 AM 195 mg/dL N Blood chemistry[[id number]] Glucose [Mass/volume] in Serum or Plasma [2345-7] 05/13/2024 01:57 PM 206 mg/dL N Blood chemistry[[id number]] Glucose [Mass/volume] in Serum or Plasma [2345-7] 05/13/2024 10:30 AM 169 mg/dL N Blood chemistry[[id number]] Glucose [Mass/volume] in Serum or Plasma [2345-7] 05/13/2024 05:23 PM 206 mg/dL N Blood chemistry[[id number]] Glucose [Mass/volume] in Serum or Plasma [2345-7] 05/13/2024 02:01 PM 151 mg/dL N Blood chemistry[[id number]] Glucose [Mass/volume] in Serum or Plasma [2345-7] 05/12/2024 01:22 PM 141 mg/dL N Blood chemistry[[id number]] Glucose [Mass/volume] in Serum or Plasma [2345-7] 05/12/2024 06:01 PM 193 mg/dL N Blood chemistry[[id number]] Glucose [Mass/volume] in Serum or Plasma [2345-7] 05/12/2024 02:40 PM 138 mg/dL N Blood chemistry[[id number]] Glucose [Mass/volume] in Serum or Plasma [2345-7] 05/12/2024 10:26 AM 163 mg/dL N Blood chemistry[[id number]] Glucose [Mass/volume] in Serum or Plasma [2345-7] 05/11/2024 05:46 PM 101 mg/dL N Blood chemistry[[id number]] Glucose [Mass/volume] in Serum or Plasma [2345-7] 05/11/2024 01:59 PM 120 mg/dL N Blood chemistry[[id number]] Glucose [Mass/volume] in Serum or Plasma [2345-7] 05/11/2024 12:41 PM 115 mg/dL N Blood chemistry[[id number]] Glucose [Mass/volume] in Serum or Plasma [2345-7] 05/11/2024 09:23 AM 120 mg/dL N Blood chemistry[[id number]] Glucose [Mass/volume] in Serum or Plasma [2345-7] 05/10/2024 01:34 PM 141 mg/dL N Blood chemistry[[id number]] Glucose [Mass/volume] in Serum or Plasma [2345-7] 05/10/2024 01:04 PM 180 mg/dL N Blood chemistry[[id number]] Glucose [Mass/volume] in Serum or Plasma [2345-7] 05/10/2024 10:42 AM 233 mg/dL N Blood chemistry[[id number]] Glucose [Mass/volume] in Serum or Plasma [2345-7] 05/10/2024 08:38 AM 232 mg/dL N Blood chemistry[[id number]] Glucose [Mass/volume] in Serum or Plasma [2345-7] 05/09/2024 06:11 PM 181 mg/dL N Blood chemistry[[id number]] Glucose [Mass/volume] in Serum or Plasma [2345-7] 05/09/2024 01:52 PM 171 mg/dL N Blood chemistry[[id number]] Glucose [Mass/volume] in Serum or Plasma [2345-7] 05/09/2024 12:41 PM 57 mg/dL N Blood chemistry[[id number]] Glucose [Mass/volume] in Serum or Plasma [2345-7] 05/09/2024 10:32 AM 164 mg/dL N Blood chemistry[[id number]] Glucose [Mass/volume] in Serum or Plasma [2345-7] 05/08/2024 05:43 PM 122 mg/dL N Blood chemistry[[id number]] Glucose [Mass/volume] in Serum or Plasma [2345-7] 05/08/2024 01:42 PM 144 mg/dL N Blood chemistry[[id number]] Glucose [Mass/volume] in Serum or Plasma [2345-7] 05/08/2024 12:42 PM 127 mg/dL N Blood chemistry[[id number]] Glucose [Mass/volume] in Serum or Plasma [2345-7] 05/08/2024 10:39 AM 170 mg/dL N Blood chemistry[[id number]] Glucose [Mass/volume] in Serum or Plasma [2345-7] 05/07/2024 06:49 PM 212 mg/dL N Blood chemistry[[id number]] Glucose [Mass/volume] in Serum or Plasma [2345-7] 05/07/2024 03:09 PM 147 mg/dL N Blood chemistry[[id number]] Glucose [Mass/volume] in Serum or Plasma [2345-7] 05/07/2024 02:07 PM 181 mg/dL N Blood chemistry[[id number]] Glucose [Mass/volume] in Serum or Plasma [2345-7] 05/07/2024 10:56 AM 169 mg/dL N Blood chemistry[[id number]] Glucose [Mass/volume] in Serum or Plasma [2345-7] 05/06/2024 02:24 PM 188 mg/dL N Blood chemistry[[id number]] Glucose [Mass/volume] in Serum or Plasma [2345-7] 05/06/2024 10:22 AM 167 mg/dL N Blood chemistry[[id number]] Glucose [Mass/volume] in Serum or Plasma [2345-7] 05/06/2024 05:00 PM 96 mg/dL N Blood chemistry[[id number]] Glucose [Mass/volume] in Serum or Plasma [2345-7] 05/06/2024 01:37 PM 99 mg/dL N Blood chemistry[[id number]] Glucose [Mass/volume] in Serum or Plasma [2345-7] 05/05/2024 01:44 PM 152 mg/dL N Blood chemistry[[id number]] Glucose [Mass/volume] in Serum or Plasma [2345-7] 05/05/2024 05:23 PM 190 mg/dL N Blood chemistry[[id number]] Glucose [Mass/volume] in Serum or Plasma [2345-7] 05/05/2024 03:10 PM 104 mg/dL N Blood chemistry[[id number]] Glucose [Mass/volume] in Serum or Plasma [2345-7] 05/05/2024 10:51 AM 104 mg/dL N Blood chemistry[[id number]] Glucose [Mass/volume] in Serum or Plasma [2345-7] 05/04/2024 02:55 PM 162 mg/dL N Blood chemistry[[id number]] Glucose [Mass/volume] in Serum or Plasma [2345-7] 05/04/2024 05:21 PM 226 mg/dL N Blood chemistry[[id number]] Glucose [Mass/volume] in Serum or Plasma [2345-7] 05/04/2024 01:54 PM 88 mg/dL N Blood chemistry[[id number]] Glucose [Mass/volume] in Serum or Plasma [2345-7] 05/04/2024 10:34 AM 101 mg/dL N Blood chemistry[[id number]] Glucose [Mass/volume] in Serum or Plasma [2345-7] 05/03/2024 12:43 PM 293 mg/dL N Blood chemistry[[id number]] Glucose [Mass/volume] in Serum or Plasma [2345-7] 05/03/2024 06:41 PM 155 mg/dL N Blood chemistry[[id number]] Glucose [Mass/volume] in Serum or Plasma [2345-7] 05/03/2024 01:37 PM 165 mg/dL N Blood chemistry[[id number]] Glucose [Mass/volume] in Serum or Plasma [2345-7] 05/02/2024 01:01 PM 154 mg/dL N Blood chemistry[[id number]] Glucose [Mass/volume] in Serum or Plasma [2345-7] 05/02/2024 05:44 PM 195 mg/dL N Blood chemistry[[id number]] Glucose [Mass/volume] in Serum or Plasma [2345-7] 05/02/2024 01:14 PM 205 mg/dL N Blood chemistry[[id number]] Glucose [Mass/volume] in Serum or Plasma [2345-7] 05/02/2024 10:53 AM 217 mg/dL N Blood chemistry[[id number]] Glucose [Mass/volume] in Serum or Plasma [2345-7] 05/01/2024 01:05 PM 266 mg/dL N Blood chemistry[[id number]] Glucose [Mass/volume] in Serum or Plasma [2345-7] 05/01/2024 05:59 PM 148 mg/dL N Blood chemistry[[id number]] Glucose [Mass/volume] in Serum or Plasma [2345-7] 05/01/2024 01:40 PM 192 mg/dL N Blood chemistry[[id number]] Glucose [Mass/volume] in Serum or Plasma [2345-7] 05/01/2024 11:12 AM 270 mg/dL N Blood chemistry[[id number]] Glucose [Mass/volume] in Serum or Plasma [2345-7] 04/30/2024 02:03 PM 244 mg/dL N Blood chemistry[[id number]] Glucose [Mass/volume] in Serum or Plasma [2345-7] 04/30/2024 12:50 PM 159 mg/dL N Blood chemistry[[id number]] Glucose [Mass/volume] in Serum or Plasma [2345-7] 04/30/2024 12:30 PM 133 mg/dL N Blood chemistry[[id number]] Glucose [Mass/volume] in Serum or Plasma [2345-7] 04/30/2024 08:58 AM 109 mg/dL N Blood chemistry[[id number]] Glucose [Mass/volume] in Serum or Plasma [2345-7] 04/29/2024 01:24 PM 308 mg/dL N Blood chemistry[[id number]] Glucose [Mass/volume] in Serum or Plasma [2345-7] 04/29/2024 11:48 AM 256 mg/dL N Blood chemistry[[id number]] Glucose [Mass/volume] in Serum or Plasma [2345-7] 04/29/2024 11:47 AM 173 mg/dL N Blood chemistry[[id number]] Glucose [Mass/volume] in Serum or Plasma [2345-7] 04/29/2024 03:45 PM 243 mg/dL N Blood chemistry[[id number]] Glucose [Mass/volume] in Serum or Plasma [2345-7] 04/28/2024 01:08 PM 316 mg/dL N Blood chemistry[[id number]] Glucose [Mass/volume] in Serum or Plasma [2345-7] 04/28/2024 03:56 PM 181 mg/dL N Blood chemistry[[id number]] Glucose [Mass/volume] in Serum or Plasma [2345-7] 04/28/2024 09:37 AM 303 mg/dL N Blood chemistry[[id number]] Glucose [Mass/volume] in Serum or Plasma [2345-7] 04/27/2024 05:02 PM 283 mg/dL N Blood chemistry[[id number]] Glucose [Mass/volume] in Serum or Plasma [2345-7] 04/27/2024 01:32 PM 248 mg/dL N Blood chemistry[[id number]] Glucose [Mass/volume] in Serum or Plasma [2345-7] 04/27/2024 12:34 PM 188 mg/dL N Blood chemistry[[id number]] Glucose [Mass/volume] in Serum or Plasma [2345-7] 04/26/2024 01:21 PM 277 mg/dL N Blood chemistry[[id number]] Glucose [Mass/volume] in Serum or Plasma [2345-7] 04/26/2024 10:07 AM 308 mg/dL N Blood chemistry[[id number]] Glucose [Mass/volume] in Serum or Plasma [2345-7] 04/26/2024 05:06 PM 210 mg/dL N Blood chemistry[[id number]] Glucose [Mass/volume] in Serum or Plasma [2345-7] 04/26/2024 01:35 PM 196 mg/dL N Blood chemistry[[id number]] Glucose [Mass/volume] in Serum or Plasma [2345-7] 04/25/2024 12:34 PM 396 mg/dL N Blood chemistry[[id number]] Glucose [Mass/volume] in Serum or Plasma [2345-7] 04/25/2024 02:53 PM 230 mg/dL N Blood chemistry[[id number]] Glucose [Mass/volume] in Serum or Plasma [2345-7] 04/25/2024 11:09 AM 323 mg/dL N Blood chemistry[[id number]] Glucose [Mass/volume] in Serum or Plasma [2345-7] 04/25/2024 07:41 AM 136 mg/dL N Blood chemistry[[id number]] Glucose [Mass/volume] in Serum or Plasma [2345-7] 04/24/2024 12:53 PM 126 mg/dL N Blood chemistry[[id number]] Glucose [Mass/volume] in Serum or Plasma [2345-7] 04/24/2024 05:44 PM 130 mg/dL N Blood chemistry[[id number]] Glucose [Mass/volume] in Serum or Plasma [2345-7] 04/24/2024 01:41 PM 103 mg/dL N Blood chemistry[[id number]] Glucose [Mass/volume] in Serum or Plasma [2345-7] 04/23/2024 05:37 PM 183 mg/dL N Blood chemistry[[id number]] Glucose [Mass/volume] in Serum or Plasma [2345-7] 04/23/2024 02:51 PM 117 mg/dL N Blood chemistry[[id number]] Glucose [Mass/volume] in Serum or Plasma [2345-7] 04/23/2024 02:37 PM 106 mg/dL N Blood chemistry[[id number]] Glucose [Mass/volume] in Serum or Plasma [2345-7] 04/23/2024 10:34 AM 132 mg/dL N Blood chemistry[[id number]] Glucose [Mass/volume] in Serum or Plasma [2345-7] 04/22/2024 01:29 PM 169 mg/dL N Blood chemistry[[id number]] Glucose [Mass/volume] in Serum or Plasma [2345-7] 04/22/2024 09:50 AM 207 mg/dL N Blood chemistry[[id number]] Glucose [Mass/volume] in Serum or Plasma [2345-7] 04/22/2024 05:39 PM 128 mg/dL N Blood chemistry[[id number]] Glucose [Mass/volume] in Serum or Plasma [2345-7] 04/22/2024 01:43 PM 119 mg/dL N Blood chemistry[[id number]] Glucose [Mass/volume] in Serum or Plasma [2345-7] 04/21/2024 06:27 PM 198 mg/dL N Blood chemistry[[id number]] Glucose [Mass/volume] in Serum or Plasma [2345-7] 04/21/2024 04:11 PM 120 mg/dL N Blood chemistry[[id number]] Glucose [Mass/volume] in Serum or Plasma [2345-7] 04/21/2024 03:22 PM 185 mg/dL N Blood chemistry[[id number]] Glucose [Mass/volume] in Serum or Plasma [2345-7] 04/21/2024 12:35 PM 95 mg/dL N Blood chemistry[[id number]] Glucose [Mass/volume] in Serum or Plasma [2345-7] 04/20/2024 05:57 PM 216 mg/dL N Blood chemistry[[id number]] Glucose [Mass/volume] in Serum or Plasma [2345-7] 04/20/2024 12:42 PM 220 mg/dL N Blood chemistry[[id number]] Glucose [Mass/volume] in Serum or Plasma [2345-7] 04/20/2024 11:25 AM 160 mg/dL N Blood chemistry[[id number]] Glucose [Mass/volume] in Serum or Plasma [2345-7] 04/20/2024 02:22 PM 127 mg/dL N Blood chemistry[[id number]] Glucose [Mass/volume] in Serum or Plasma [2345-7] 04/19/2024 05:27 PM 97 mg/dL N Blood chemistry[[id number]] Glucose [Mass/volume] in Serum or Plasma [2345-7] 04/19/2024 01:15 PM 143 mg/dL N Blood chemistry[[id number]] Glucose [Mass/volume] in Serum or Plasma [2345-7] 04/19/2024 10:30 AM 113 mg/dL N Blood chemistry[[id number]] Glucose [Mass/volume] in Serum or Plasma [2345-7] 04/19/2024 01:48 PM 109 mg/dL N Blood chemistry[[id number]] Glucose [Mass/volume] in Serum or Plasma [2345-7] 04/18/2024 05:29 PM 92 mg/dL N Blood chemistry[[id number]] Glucose [Mass/volume] in Serum or Plasma [2345-7] 04/18/2024 12:41 PM 130 mg/dL N Blood chemistry[[id number]] Glucose [Mass/volume] in Serum or Plasma [2345-7] 04/18/2024 10:46 AM 85 mg/dL N Blood chemistry[[id number]] Glucose [Mass/volume] in Serum or Plasma [2345-7] 04/18/2024 01:45 PM 82 mg/dL N Blood chemistry[[id number]] Glucose [Mass/volume] in Serum or Plasma [2345-7] 04/17/2024 06:14 PM 91 mg/dL N Blood chemistry[[id number]] Glucose [Mass/volume] in Serum or Plasma [2345-7] 04/17/2024 03:29 PM 158 mg/dL N Blood chemistry[[id number]] Glucose [Mass/volume] in Serum or Plasma [2345-7] 04/17/2024 02:30 PM 111 mg/dL N Blood chemistry[[id number]] Glucose [Mass/volume] in Serum or Plasma [2345-7] 04/17/2024 11:48 AM 141 mg/dL N Blood chemistry[[id number]] Glucose [Mass/volume] in Serum or Plasma [2345-7] 04/16/2024 03:09 PM 185 mg/dL N Blood chemistry[[id number]] Glucose [Mass/volume] in Serum or Plasma [2345-7] 04/16/2024 12:05 PM 114 mg/dL N Blood chemistry[[id number]] Glucose [Mass/volume] in Serum or Plasma [2345-7] 04/16/2024 08:18 AM 106 mg/dL N Glucose [Mass/volume] in Serum or Plasma [2345-7] 04/16/2024 08:18 AM 149 mg/dL N Blood chemistry[[id number]] Glucose [Mass/volume] in Serum or Plasma [2345-7] 04/15/2024 05:01 PM 188 mg/dL N Blood chemistry[[id number]] Glucose [Mass/volume] in Serum or Plasma [2345-7] 04/15/2024 12:41 PM 142 mg/dL N Blood chemistry[[id number]] Glucose [Mass/volume] in Serum or Plasma [2345-7] 04/15/2024 08:24 AM 141 mg/dL N Glucose [Mass/volume] in Serum or Plasma [2345-7] 04/15/2024 08:24 AM 97 mg/dL N Blood chemistry[[id number]] Glucose [Mass/volume] in Serum or Plasma [2345-7] 04/14/2024 05:11 PM 200 mg/dL N Blood chemistry[[id number]] Glucose [Mass/volume] in Serum or Plasma [2345-7] 04/14/2024 06:57 PM 131 mg/dL N Blood chemistry[[id number]] Glucose [Mass/volume] in Serum or Plasma [2345-7] 04/14/2024 04:46 PM 93 mg/dL N Blood chemistry[[id number]] Glucose [Mass/volume] in Serum or Plasma [2345-7] 04/14/2024 11:37 AM 134 mg/dL N Blood chemistry[[id number]] Glucose [Mass/volume] in Serum or Plasma [2345-7] 04/13/2024 02:13 PM 101 mg/dL N Blood chemistry[[id number]] Glucose [Mass/volume] in Serum or Plasma [2345-7] 04/13/2024 12:32 PM 104 mg/dL N Blood chemistry[[id number]] Glucose [Mass/volume] in Serum or Plasma [2345-7] 04/13/2024 11:14 AM 177 mg/dL N Blood chemistry[[id number]] Glucose [Mass/volume] in Serum or Plasma [2345-7] 04/13/2024 07:16 AM 164 mg/dL N Blood chemistry[[id number]] Glucose [Mass/volume] in Serum or Plasma [2345-7] 04/12/2024 12:27 PM 207 mg/dL N Blood chemistry[[id number]] Glucose [Mass/volume] in Serum or Plasma [2345-7] 04/12/2024 10:21 AM 80 mg/dL N Blood chemistry[[id number]] Glucose [Mass/volume] in Serum or Plasma [2345-7] 04/12/2024 07:02 AM 80 mg/dL N Glucose [Mass/volume] in Serum or Plasma [2345-7] 04/12/2024 07:02 AM 145 mg/dL N Blood chemistry[[id number]] Glucose [Mass/volume] in Serum or Plasma [2345-7] 04/11/2024 06:10 PM 149 mg/dL N Blood chemistry[[id number]] Glucose [Mass/volume] in Serum or Plasma [2345-7] 04/11/2024 01:39 PM 142 mg/dL N Blood chemistry[[id number]] Glucose [Mass/volume] in Serum or Plasma [2345-7] 04/11/2024 12:31 PM 74 mg/dL N Blood chemistry[[id number]] Glucose [Mass/volume] in Serum or Plasma [2345-7] 04/11/2024 10:45 AM 109 mg/dL N Blood chemistry[[id number]] Glucose [Mass/volume] in Serum or Plasma [2345-7] 04/10/2024 05:04 PM 169 mg/dL N Blood chemistry[[id number]] Glucose [Mass/volume] in Serum or Plasma [2345-7] 04/10/2024 03:14 PM 146 mg/dL N Blood chemistry[[id number]] Glucose [Mass/volume] in Serum or Plasma [2345-7] 04/10/2024 12:52 PM 251 mg/dL N Blood chemistry[[id number]] Glucose [Mass/volume] in Serum or Plasma [2345-7] 04/10/2024 10:43 AM 184 mg/dL N Blood chemistry[[id number]] Glucose [Mass/volume] in Serum or Plasma [2345-7] 04/09/2024 05:04 PM 196 mg/dL N Blood chemistry[[id number]] Glucose [Mass/volume] in Serum or Plasma [2345-7] 04/09/2024 04:33 PM 285 mg/dL N Blood chemistry[[id number]] Glucose [Mass/volume] in Serum or Plasma [2345-7] 04/09/2024 02:19 PM 176 mg/dL N Blood chemistry[[id number]] Glucose [Mass/volume] in Serum or Plasma [2345-7] 04/09/2024 11:19 AM 80 mg/dL N Blood chemistry[[id number]] Glucose [Mass/volume] in Serum or Plasma [2345-7] 04/08/2024 05:33 PM 269 mg/dL N Blood chemistry[[id number]] Glucose [Mass/volume] in Serum or Plasma [2345-7] 04/08/2024 04:03 PM 95 mg/dL N Blood chemistry[[id number]] Glucose [Mass/volume] in Serum or Plasma [2345-7] 04/08/2024 02:37 PM 187 mg/dL N Blood chemistry[[id number]] Glucose [Mass/volume] in Serum or Plasma [2345-7] 04/08/2024 10:56 AM 187 mg/dL N Blood chemistry[[id number]] Glucose [Mass/volume] in Serum or Plasma [2345-7] 04/07/2024 05:15 PM 109 mg/dL N Blood chemistry[[id number]] Glucose [Mass/volume] in Serum or Plasma [2345-7] 04/07/2024 02:45 PM 200 mg/dL N Blood chemistry[[id number]] Glucose [Mass/volume] in Serum or Plasma [2345-7] 04/07/2024 02:27 PM 144 mg/dL N Blood chemistry[[id number]] Glucose [Mass/volume] in Serum or Plasma [2345-7] 04/07/2024 11:36 AM 118 mg/dL N Blood chemistry[[id number]] Glucose [Mass/volume] in Serum or Plasma [2345-7] 04/06/2024 06:23 PM 188 mg/dL N Blood chemistry[[id number]] Glucose [Mass/volume] in Serum or Plasma [2345-7] 04/06/2024 02:01 PM 150 mg/dL N Blood chemistry[[id number]] Glucose [Mass/volume] in Serum or Plasma [2345-7] 04/06/2024 12:56 PM 132 mg/dL N Blood chemistry[[id number]] Glucose [Mass/volume] in Serum or Plasma [2345-7] 04/06/2024 11:01 AM 137 mg/dL N Blood chemistry[[id number]] Glucose [Mass/volume] in Serum or Plasma [2345-7] 04/05/2024 05:50 PM 188 mg/dL N Blood chemistry[[id number]] Glucose [Mass/volume] in Serum or Plasma [2345-7] 04/05/2024 02:28 PM 160 mg/dL N Blood chemistry[[id number]] Glucose [Mass/volume] in Serum or Plasma [2345-7] 04/05/2024 12:22 PM 138 mg/dL N Blood chemistry[[id number]] Glucose [Mass/volume] in Serum or Plasma [2345-7] 04/05/2024 11:16 AM 142 mg/dL N Blood chemistry[[id number]] Glucose [Mass/volume] in Serum or Plasma [2345-7] 04/04/2024 04:49 PM 148 mg/dL N Blood chemistry[[id number]] Glucose [Mass/volume] in Serum or Plasma [2345-7] 04/04/2024 01:53 PM 88 mg/dL N Blood chemistry[[id number]] Glucose [Mass/volume] in Serum or Plasma [2345-7] 04/04/2024 12:37 PM 168 mg/dL N Blood chemistry[[id number]] Glucose [Mass/volume] in Serum or Plasma [2345-7] 04/04/2024 09:12 AM 82 mg/dL N Blood chemistry[[id number]] Glucose [Mass/volume] in Serum or Plasma [2345-7] 04/03/2024 03:05 PM 105 mg/dL N Blood chemistry[[id number]] Glucose [Mass/volume] in Serum or Plasma [2345-7] 04/03/2024 02:09 PM 147 mg/dL N Blood chemistry[[id number]] Glucose [Mass/volume] in Serum or Plasma [2345-7] 04/03/2024 10:57 AM 149 mg/dL N Blood chemistry[[id number]] Glucose [Mass/volume] in Serum or Plasma [2345-7] 04/03/2024 07:15 AM 74 mg/dL N Blood chemistry[[id number]] Glucose [Mass/volume] in Serum or Plasma [2345-7] 04/02/2024 02:05 PM 224 mg/dL N Blood chemistry[[id number]] Glucose [Mass/volume] in Serum or Plasma [2345-7] 04/02/2024 10:39 AM 185 mg/dL N Blood chemistry[[id number]] Glucose [Mass/volume] in Serum or Plasma [2345-7] 04/02/2024 07:38 AM 107 mg/dL N Blood chemistry[[id number]] Glucose [Mass/volume] in Serum or Plasma [2345-7] 04/02/2024 07:37 AM 103 mg/dL N Blood chemistry[[id number]] Glucose [Mass/volume] in Serum or Plasma [2345-7] 04/01/2024 05:02 PM 132 mg/dL N Blood chemistry[[id number]] Glucose [Mass/volume] in Serum or Plasma [2345-7] 04/01/2024 02:00 PM 195 mg/dL N Blood chemistry[[id number]] Glucose [Mass/volume] in Serum or Plasma [2345-7] 04/01/2024 11:43 AM 113 mg/dL N Blood chemistry[[id number]] Glucose [Mass/volume] in Serum or Plasma [2345-7] 04/01/2024 10:15 AM 142 mg/dL N Blood chemistry[[id number]] Glucose [Mass/volume] in Serum or Plasma [2345-7] 03/31/2024 04:03 PM 224 mg/dL N Blood chemistry[[id number]] Glucose [Mass/volume] in Serum or Plasma [2345-7] 03/31/2024 02:34 PM 173 mg/dL N Blood chemistry[[id number]] Glucose [Mass/volume] in Serum or Plasma [2345-7] 03/31/2024 12:11 PM 113 mg/dL N Blood chemistry[[id number]] Glucose [Mass/volume] in Serum or Plasma [2345-7] 03/31/2024 08:24 AM 107 mg/dL N Blood chemistry[[id number]] Glucose [Mass/volume] in Serum or Plasma [2345-7] 03/30/2024 05:19 PM 219 mg/dL N Blood chemistry[[id number]] Glucose [Mass/volume] in Serum or Plasma [2345-7] 03/30/2024 02:24 PM 242 mg/dL N Blood chemistry[[id number]] Glucose [Mass/volume] in Serum or Plasma [2345-7] 03/30/2024 12:45 PM 151 mg/dL N Blood chemistry[[id number]] Glucose [Mass/volume] in Serum or Plasma [2345-7] 03/30/2024 10:49 AM 194 mg/dL N Blood chemistry[[id number]] Glucose [Mass/volume] in Serum or Plasma [2345-7] 03/29/2024 05:12 PM 200 mg/dL N Blood chemistry[[id number]] Glucose [Mass/volume] in Serum or Plasma [2345-7] 03/29/2024 02:01 PM 114 mg/dL N Blood chemistry[[id number]] Glucose [Mass/volume] in Serum or Plasma [2345-7] 03/29/2024 12:34 PM 149 mg/dL N Blood chemistry[[id number]] Glucose [Mass/volume] in Serum or Plasma [2345-7] 03/29/2024 10:32 AM 95 mg/dL N Blood chemistry[[id number]] Glucose [Mass/volume] in Serum or Plasma [2345-7] 03/28/2024 03:44 PM 144 mg/dL N Blood chemistry[[id number]] Glucose [Mass/volume] in Serum or Plasma [2345-7] 03/28/2024 12:44 PM 134 mg/dL N Blood chemistry[[id number]] Glucose [Mass/volume] in Serum or Plasma [2345-7] 03/28/2024 11:26 AM 141 mg/dL N Blood chemistry[[id number]] Glucose [Mass/volume] in Serum or Plasma [2345-7] 03/28/2024 08:13 AM 173 mg/dL N Blood chemistry[[id number]] Glucose [Mass/volume] in Serum or Plasma [2345-7] 03/27/2024 05:15 PM 140 mg/dL N Blood chemistry[[id number]] Glucose [Mass/volume] in Serum or Plasma [2345-7] 03/27/2024 01:12 PM 121 mg/dL N Blood chemistry[[id number]] Glucose [Mass/volume] in Serum or Plasma [2345-7] 03/27/2024 12:33 PM 112 mg/dL N Blood chemistry[[id number]] Glucose [Mass/volume] in Serum or Plasma [2345-7] 03/27/2024 10:36 AM 120 mg/dL N Blood chemistry[[id number]] Glucose [Mass/volume] in Serum or Plasma [2345-7] 03/26/2024 04:45 PM 188 mg/dL N Blood chemistry[[id number]] Glucose [Mass/volume] in Serum or Plasma [2345-7] 03/26/2024 02:02 PM 145 mg/dL N Blood chemistry[[id number]] Glucose [Mass/volume] in Serum or Plasma [2345-7] 03/26/2024 01:12 PM 114 mg/dL N Blood chemistry[[id number]] Glucose [Mass/volume] in Serum or Plasma [2345-7] 03/26/2024 10:34 AM 136 mg/dL N Blood chemistry[[id number]] Glucose [Mass/volume] in Serum or Plasma [2345-7] 03/25/2024 05:24 PM 142 mg/dL N Blood chemistry[[id number]] Glucose [Mass/volume] in Serum or Plasma [2345-7] 03/25/2024 02:52 PM 406 mg/dL N Blood chemistry[[id number]] Glucose [Mass/volume] in Serum or Plasma [2345-7] 03/25/2024 12:36 PM 162 mg/dL N Blood chemistry[[id number]] Glucose [Mass/volume] in Serum or Plasma [2345-7] 03/25/2024 09:59 AM 62 mg/dL N Blood chemistry[[id number]] Glucose [Mass/volume] in Serum or Plasma [2345-7] 03/24/2024 05:29 PM 129 mg/dL N Blood chemistry[[id number]] Glucose [Mass/volume] in Serum or Plasma [2345-7] 03/24/2024 01:53 PM 188 mg/dL N Blood chemistry[[id number]] Glucose [Mass/volume] in Serum or Plasma [2345-7] 03/24/2024 12:33 PM 188 mg/dL N Blood chemistry[[id number]] Glucose [Mass/volume] in Serum or Plasma [2345-7] 03/24/2024 12:01 PM 124 mg/dL N Blood chemistry[[id number]] Glucose [Mass/volume] in Serum or Plasma [2345-7] 03/23/2024 05:01 PM 154 mg/dL N Blood chemistry[[id number]] Glucose [Mass/volume] in Serum or Plasma [2345-7] 03/23/2024 01:02 PM 129 mg/dL N Blood chemistry[[id number]] Glucose [Mass/volume] in Serum or Plasma [2345-7] 03/23/2024 12:27 PM 231 mg/dL N Blood chemistry[[id number]] Glucose [Mass/volume] in Serum or Plasma [2345-7] 03/23/2024 10:18 AM 189 mg/dL N Blood chemistry[[id number]] Glucose [Mass/volume] in Serum or Plasma [2345-7] 03/22/2024 03:20 PM 138 mg/dL N Blood chemistry[[id number]] Glucose [Mass/volume] in Serum or Plasma [2345-7] 03/22/2024 12:20 PM 243 mg/dL N Blood chemistry[[id number]] Glucose [Mass/volume] in Serum or Plasma [2345-7] 03/21/2024 05:30 PM 137 mg/dL N Blood chemistry[[id number]] Glucose [Mass/volume] in Serum or Plasma [2345-7] 03/21/2024 01:17 PM 113 mg/dL N Blood chemistry[[id number]] Glucose [Mass/volume] in Serum or Plasma [2345-7] 03/21/2024 12:22 PM 105 mg/dL N Blood chemistry[[id number]] Glucose [Mass/volume] in Serum or Plasma [2345-7] 03/21/2024 11:04 AM 173 mg/dL N Blood chemistry[[id number]] Glucose [Mass/volume] in Serum or Plasma [2345-7] 03/20/2024 05:56 PM 157 mg/dL N Blood chemistry[[id number]] Glucose [Mass/volume] in Serum or Plasma [2345-7] 03/20/2024 03:30 PM 109 mg/dL N Blood chemistry[[id number]] Glucose [Mass/volume] in Serum or Plasma [2345-7] 03/20/2024 01:22 PM 201 mg/dL N Blood chemistry[[id number]] Glucose [Mass/volume] in Serum or Plasma [2345-7] 03/20/2024 11:41 AM 109 mg/dL N Blood chemistry[[id number]] Glucose [Mass/volume] in Serum or Plasma [2345-7] 03/19/2024 05:46 PM 140 mg/dL N Blood chemistry[[id number]] Glucose [Mass/volume] in Serum or Plasma [2345-7] 03/19/2024 01:22 PM 130 mg/dL N Blood chemistry[[id number]] Glucose [Mass/volume] in Serum or Plasma [2345-7] 03/19/2024 12:51 PM 213 mg/dL N Blood chemistry[[id number]] Glucose [Mass/volume] in Serum or Plasma [2345-7] 03/19/2024 11:36 AM 116 mg/dL N Blood chemistry[[id number]] Glucose [Mass/volume] in Serum or Plasma [2345-7] 03/18/2024 05:57 PM 191 mg/dL N Blood chemistry[[id number]] Glucose [Mass/volume] in Serum or Plasma [2345-7] 03/18/2024 01:10 PM 155 mg/dL N Blood chemistry[[id number]] Glucose [Mass/volume] in Serum or Plasma [2345-7] 03/18/2024 01:04 PM 247 mg/dL N Blood chemistry[[id number]] Glucose [Mass/volume] in Serum or Plasma [2345-7] 03/18/2024 10:41 AM 74 mg/dL N Blood chemistry[[id number]] Glucose [Mass/volume] in Serum or Plasma [2345-7] 03/17/2024 06:46 PM 99 mg/dL N Blood chemistry[[id number]] Glucose [Mass/volume] in Serum or Plasma [2345-7] 03/17/2024 02:35 PM 152 mg/dL N Blood chemistry[[id number]] Glucose [Mass/volume] in Serum or Plasma [2345-7] 03/17/2024 02:11 PM 241 mg/dL N Blood chemistry[[id number]] Glucose [Mass/volume] in Serum or Plasma [2345-7] 03/17/2024 11:02 AM 98 mg/dL N Blood chemistry[[id number]] Glucose [Mass/volume] in Serum or Plasma [2345-7] 03/16/2024 04:58 PM 88 mg/dL N Blood chemistry[[id number]] Glucose [Mass/volume] in Serum or Plasma [2345-7] 03/16/2024 01:28 PM 126 mg/dL N Blood chemistry[[id number]] Glucose [Mass/volume] in Serum or Plasma [2345-7] 03/16/2024 12:36 PM 102 mg/dL N Blood chemistry[[id number]] Glucose [Mass/volume] in Serum or Plasma [2345-7] 03/16/2024 10:30 AM 172 mg/dL N Blood chemistry[[id number]] Glucose [Mass/volume] in Serum or Plasma [2345-7] 03/15/2024 05:23 PM 139 mg/dL N Blood chemistry[[id number]] Glucose [Mass/volume] in Serum or Plasma [2345-7] 03/15/2024 01:43 PM 90 mg/dL N Blood chemistry[[id number]] Glucose [Mass/volume] in Serum or Plasma [2345-7] 03/15/2024 12:38 PM 104 mg/dL N Blood chemistry[[id number]] Glucose [Mass/volume] in Serum or Plasma [2345-7] 03/15/2024 11:09 AM 162 mg/dL N Blood chemistry[[id number]] Glucose [Mass/volume] in Serum or Plasma [2345-7] 03/14/2024 05:11 PM 128 mg/dL N Blood chemistry[[id number]] Glucose [Mass/volume] in Serum or Plasma [2345-7] 03/14/2024 01:03 PM 76 mg/dL N Blood chemistry[[id number]] Glucose [Mass/volume] in Serum or Plasma [2345-7] 03/14/2024 12:55 PM 145 mg/dL N Blood chemistry[[id number]] Glucose [Mass/volume] in Serum or Plasma [2345-7] 03/14/2024 09:34 AM 119 mg/dL N Blood chemistry[[id number]] Glucose [Mass/volume] in Serum or Plasma [2345-7] 03/13/2024 05:43 PM 110 mg/dL N Blood chemistry[[id number]] Glucose [Mass/volume] in Serum or Plasma [2345-7] 03/13/2024 01:46 PM 88 mg/dL N Blood chemistry[[id number]] Glucose [Mass/volume] in Serum or Plasma [2345-7] 03/13/2024 01:39 PM 154 mg/dL N Blood chemistry[[id number]] Glucose [Mass/volume] in Serum or Plasma [2345-7] 03/13/2024 09:40 AM 138 mg/dL N Blood chemistry[[id number]] Glucose [Mass/volume] in Serum or Plasma [2345-7] 03/12/2024 05:22 PM 198 mg/dL N Blood chemistry[[id number]] Glucose [Mass/volume] in Serum or Plasma [2345-7] 03/12/2024 01:47 PM 115 mg/dL N Blood chemistry[[id number]] Glucose [Mass/volume] in Serum or Plasma [2345-7] 03/12/2024 01:46 PM 231 mg/dL N Blood chemistry[[id number]] Glucose [Mass/volume] in Serum or Plasma [2345-7] 03/12/2024 10:36 AM 126 mg/dL N Blood chemistry[[id number]] Glucose [Mass/volume] in Serum or Plasma [2345-7] 03/11/2024 05:27 PM 106 mg/dL N Blood chemistry[[id number]] Glucose [Mass/volume] in Serum or Plasma [2345-7] 03/11/2024 01:53 PM 207 mg/dL N Blood chemistry[[id number]] Glucose [Mass/volume] in Serum or Plasma [2345-7] 03/11/2024 01:28 PM 106 mg/dL N Blood chemistry[[id number]] Glucose [Mass/volume] in Serum or Plasma [2345-7] 03/11/2024 11:55 AM 110 mg/dL N Blood chemistry[[id number]] Glucose [Mass/volume] in Serum or Plasma [2345-7] 03/10/2024 06:23 PM 161 mg/dL N Blood chemistry[[id number]] Glucose [Mass/volume] in Serum or Plasma [2345-7] 03/10/2024 02:59 PM 139 mg/dL N Blood chemistry[[id number]] Glucose [Mass/volume] in Serum or Plasma [2345-7] 03/10/2024 01:21 PM 196 mg/dL N Blood chemistry[[id number]] Glucose [Mass/volume] in Serum or Plasma [2345-7] 03/10/2024 12:24 PM 113 mg/dL N Blood chemistry[[id number]] Glucose [Mass/volume] in Serum or Plasma [2345-7] 03/09/2024 05:24 PM 153 mg/dL N Blood chemistry[[id number]] Glucose [Mass/volume] in Serum or Plasma [2345-7] 03/09/2024 01:25 PM 151 mg/dL N Blood chemistry[[id number]] Glucose [Mass/volume] in Serum or Plasma [2345-7] 03/09/2024 01:04 PM 111 mg/dL N Blood chemistry[[id number]] Glucose [Mass/volume] in Serum or Plasma [2345-7] 03/09/2024 10:35 AM 159 mg/dL N Blood chemistry[[id number]] Glucose [Mass/volume] in Serum or Plasma [2345-7] 03/08/2024 06:13 PM 96 mg/dL N Blood chemistry[[id number]] Glucose [Mass/volume] in Serum or Plasma [2345-7] 03/08/2024 04:35 PM 125 mg/dL N Blood chemistry[[id number]] Glucose [Mass/volume] in Serum or Plasma [2345-7] 03/08/2024 01:21 PM 110 mg/dL N Blood chemistry[[id number]] Glucose [Mass/volume] in Serum or Plasma [2345-7] 03/08/2024 11:23 AM 111 mg/dL N Blood chemistry[[id number]] Glucose [Mass/volume] in Serum or Plasma [2345-7] 03/07/2024 04:40 PM 89 mg/dL N Blood chemistry[[id number]] Glucose [Mass/volume] in Serum or Plasma [2345-7] 03/07/2024 01:13 PM 183 mg/dL N Blood chemistry[[id number]] Glucose [Mass/volume] in Serum or Plasma [2345-7] 03/07/2024 12:49 PM 132 mg/dL N Blood chemistry[[id number]] Glucose [Mass/volume] in Serum or Plasma [2345-7] 03/07/2024 10:39 AM 124 mg/dL N Blood chemistry[[id number]] Glucose [Mass/volume] in Serum or Plasma [2345-7] 03/06/2024 02:53 PM 130 mg/dL N Blood chemistry[[id number]] Glucose [Mass/volume] in Serum or Plasma [2345-7] 03/06/2024 02:44 PM 116 mg/dL N Blood chemistry[[id number]] Glucose [Mass/volume] in Serum or Plasma [2345-7] 03/06/2024 07:30 AM 96 mg/dL N Blood chemistry[[id number]] Glucose [Mass/volume] in Serum or Plasma [2345-7] 03/05/2024 05:21 PM 160 mg/dL N Blood chemistry[[id number]] Glucose [Mass/volume] in Serum or Plasma [2345-7] 03/05/2024 01:16 PM 135 mg/dL N Blood chemistry[[id number]] Glucose [Mass/volume] in Serum or Plasma [2345-7] 03/05/2024 12:52 PM 120 mg/dL N Blood chemistry[[id number]] Glucose [Mass/volume] in Serum or Plasma [2345-7] 03/05/2024 11:02 AM 98 mg/dL N Blood chemistry[[id number]] Glucose [Mass/volume] in Serum or Plasma [2345-7] 03/04/2024 04:53 PM 106 mg/dL N Blood chemistry[[id number]] Glucose [Mass/volume] in Serum or Plasma [2345-7] 03/04/2024 12:56 PM 106 mg/dL N Blood chemistry[[id number]] Glucose [Mass/volume] in Serum or Plasma [2345-7] 03/04/2024 12:16 PM 180 mg/dL N Blood chemistry[[id number]] Glucose [Mass/volume] in Serum or Plasma [2345-7] 03/04/2024 09:12 AM 125 mg/dL N Blood chemistry[[id number]] Glucose [Mass/volume] in Serum or Plasma [2345-7] 03/03/2024 05:17 PM 89 mg/dL N Blood chemistry[[id number]] Glucose [Mass/volume] in Serum or Plasma [2345-7] 03/03/2024 12:56 PM 105 mg/dL N Blood chemistry[[id number]] Glucose [Mass/volume] in Serum or Plasma [2345-7] 03/03/2024 09:08 AM 98 mg/dL N Blood chemistry[[id number]] Glucose [Mass/volume] in Serum or Plasma [2345-7] 03/02/2024 04:53 PM 119 mg/dL N Blood chemistry[[id number]] Glucose [Mass/volume] in Serum or Plasma [2345-7] 03/02/2024 12:11 PM 162 mg/dL N Blood chemistry[[id number]] Glucose [Mass/volume] in Serum or Plasma [2345-7] 03/02/2024 11:58 AM 183 mg/dL N Blood chemistry[[id number]] Glucose [Mass/volume] in Serum or Plasma [2345-7] 03/02/2024 09:03 AM 128 mg/dL N Blood chemistry[[id number]] Glucose [Mass/volume] in Serum or Plasma [2345-7] 03/01/2024 04:33 PM 128 mg/dL N Blood chemistry[[id number]] Glucose [Mass/volume] in Serum or Plasma [2345-7] 03/01/2024 03:30 PM 93 mg/dL N Blood chemistry[[id number]] Glucose [Mass/volume] in Serum or Plasma [2345-7] 03/01/2024 11:56 AM 122 mg/dL N Blood chemistry[[id number]] Glucose [Mass/volume] in Serum or Plasma [2345-7] 03/01/2024 10:54 AM 114 mg/dL N Blood chemistry[[id number]] Glucose [Mass/volume] in Serum or Plasma [2345-7] 02/29/2024 04:17 PM 137 mg/dL N Blood chemistry[[id number]] Glucose [Mass/volume] in Serum or Plasma [2345-7] 02/29/2024 12:17 PM 86 mg/dL N Blood chemistry[[id number]] Glucose [Mass/volume] in Serum or Plasma [2345-7] 02/29/2024 12:14 PM 138 mg/dL N Blood chemistry[[id number]] Glucose [Mass/volume] in Serum or Plasma [2345-7] 02/29/2024 09:33 AM 133 mg/dL N Blood chemistry[[id number]] Glucose [Mass/volume] in Serum or Plasma [2345-7] 02/28/2024 03:54 PM 119 mg/dL N Blood chemistry[[id number]] Glucose [Mass/volume] in Serum or Plasma [2345-7] 02/28/2024 01:31 PM 133 mg/dL N Blood chemistry[[id number]] Glucose [Mass/volume] in Serum or Plasma [2345-7] 02/28/2024 11:59 AM 165 mg/dL N Blood chemistry[[id number]] Glucose [Mass/volume] in Serum or Plasma [2345-7] 02/28/2024 09:47 AM 137 mg/dL N Blood chemistry[[id number]] Glucose [Mass/volume] in Serum or Plasma [2345-7] 02/27/2024 04:24 PM 125 mg/dL N Blood chemistry[[id number]] Glucose [Mass/volume] in Serum or Plasma [2345-7] 02/27/2024 12:43 PM 131 mg/dL N Blood chemistry[[id number]] Glucose [Mass/volume] in Serum or Plasma [2345-7] 02/27/2024 12:20 PM 220 mg/dL N Blood chemistry[[id number]] Glucose [Mass/volume] in Serum or Plasma [2345-7] 02/27/2024 10:32 AM 122 mg/dL N Blood chemistry[[id number]] Glucose [Mass/volume] in Serum or Plasma [2345-7] 02/26/2024 03:06 PM 133 mg/dL N Blood chemistry[[id number]] Glucose [Mass/volume] in Serum or Plasma [2345-7] 02/26/2024 12:24 PM 265 mg/dL N Blood chemistry[[id number]] Glucose [Mass/volume] in Serum or Plasma [2345-7] 02/26/2024 11:47 AM 147 mg/dL N Blood chemistry[[id number]] Glucose [Mass/volume] in Serum or Plasma [2345-7] 02/26/2024 06:49 AM 305 mg/dL N Blood chemistry[[id number]] Glucose [Mass/volume] in Serum or Plasma [2345-7] 02/25/2024 02:51 PM 300 mg/dL N Blood chemistry[[id number]] Glucose [Mass/volume] in Serum or Plasma [2345-7] 02/25/2024 02:36 PM 123 mg/dL N Blood chemistry[[id number]] Glucose [Mass/volume] in Serum or Plasma [2345-7] 02/25/2024 10:13 AM 47 mg/dL N Blood chemistry[[id number]] Glucose [Mass/volume] in Serum or Plasma [2345-7] 02/24/2024 04:24 PM 239 mg/dL N Blood chemistry[[id number]] Glucose [Mass/volume] in Serum or Plasma [2345-7] 02/24/2024 12:53 PM 200 mg/dL N Blood chemistry[[id number]] Glucose [Mass/volume] in Serum or Plasma [2345-7] 02/24/2024 12:21 PM 163 mg/dL N Blood chemistry[[id number]] Glucose [Mass/volume] in Serum or Plasma [2345-7] 02/24/2024 09:20 AM 142 mg/dL N Blood chemistry[[id number]] Glucose [Mass/volume] in Serum or Plasma [2345-7] 02/23/2024 04:28 PM 105 mg/dL N Blood chemistry[[id number]] Glucose [Mass/volume] in Serum or Plasma [2345-7] 02/23/2024 12:40 PM 119 mg/dL N Blood chemistry[[id number]] Glucose [Mass/volume] in Serum or Plasma [2345-7] 02/23/2024 11:56 AM 197 mg/dL N Blood chemistry[[id number]] Glucose [Mass/volume] in Serum or Plasma [2345-7] 02/23/2024 09:10 AM 151 mg/dL N Blood chemistry[[id number]] Glucose [Mass/volume] in Serum or Plasma [2345-7] 02/22/2024 04:05 PM 142 mg/dL N Blood chemistry[[id number]] Glucose [Mass/volume] in Serum or Plasma [2345-7] 02/22/2024 12:17 PM 267 mg/dL N Blood chemistry[[id number]] Glucose [Mass/volume] in Serum or Plasma [2345-7] 02/22/2024 12:11 PM 150 mg/dL N Blood chemistry[[id number]] Glucose [Mass/volume] in Serum or Plasma [2345-7] 02/22/2024 11:27 AM 129 mg/dL N Blood chemistry[[id number]] Glucose [Mass/volume] in Serum or Plasma [2345-7] 02/21/2024 05:26 PM 118 mg/dL N COVID-19 Test Viral Antigen null flavor [null] 02/21/2024 05:00 PM See note NEG COVID-19 Test Viral Antigen Blood chemistry[[id number]] Glucose [Mass/volume] in Serum or Plasma [2345-7] 02/21/2024 12:53 PM 134 mg/dL N Blood chemistry[[id number]] Glucose [Mass/volume] in Serum or Plasma [2345-7] 02/21/2024 12:33 PM 204 mg/dL N Blood chemistry[[id number]] Glucose [Mass/volume] in Serum or Plasma [2345-7] 02/21/2024 09:38 AM 220 mg/dL N Blood chemistry[[id number]] Glucose [Mass/volume] in Serum or Plasma [2345-7] 02/20/2024 05:03 PM 120 mg/dL N Blood chemistry[[id number]] Glucose [Mass/volume] in Serum or Plasma [2345-7] 02/20/2024 05:02 PM 132 mg/dL N Blood chemistry[[id number]] Glucose [Mass/volume] in Serum or Plasma [2345-7] 02/20/2024 12:38 PM 304 mg/dL N Blood chemistry[[id number]] Glucose [Mass/volume] in Serum or Plasma [2345-7] 02/20/2024 10:54 AM 141 mg/dL N Blood chemistry[[id number]] Glucose [Mass/volume] in Serum or Plasma [2345-7] 02/19/2024 04:48 PM 124 mg/dL N Blood chemistry[[id number]] Glucose [Mass/volume] in Serum or Plasma [2345-7] 02/19/2024 02:23 PM 148 mg/dL N Blood chemistry[[id number]] Glucose [Mass/volume] in Serum or Plasma [2345-7] 02/19/2024 12:04 PM 173 mg/dL N Blood chemistry[[id number]] Glucose [Mass/volume] in Serum or Plasma [2345-7] 02/19/2024 11:30 AM 213 mg/dL N Blood chemistry[[id number]] Glucose [Mass/volume] in Serum or Plasma [2345-7] 02/18/2024 05:03 PM 135 mg/dL N Blood chemistry[[id number]] Glucose [Mass/volume] in Serum or Plasma [2345-7] 02/18/2024 01:09 PM 135 mg/dL N Blood chemistry[[id number]] Glucose [Mass/volume] in Serum or Plasma [2345-7] 02/18/2024 09:42 AM 236 mg/dL N Blood chemistry[[id number]] Glucose [Mass/volume] in Serum or Plasma [2345-7] 02/17/2024 04:41 PM 234 mg/dL N Blood chemistry[[id number]] Glucose [Mass/volume] in Serum or Plasma [2345-7] 02/17/2024 02:07 PM 99 mg/dL N Blood chemistry[[id number]] Glucose [Mass/volume] in Serum or Plasma [2345-7] 02/17/2024 11:40 AM 194 mg/dL N Blood chemistry[[id number]] Glucose [Mass/volume] in Serum or Plasma [2345-7] 02/17/2024 09:25 AM 166 mg/dL N Blood chemistry[[id number]] Glucose [Mass/volume] in Serum or Plasma [2345-7] 02/16/2024 04:08 PM 191 mg/dL N Blood chemistry[[id number]] Glucose [Mass/volume] in Serum or Plasma [2345-7] 02/16/2024 02:50 PM 115 mg/dL N Blood chemistry[[id number]] Glucose [Mass/volume] in Serum or Plasma [2345-7] 02/16/2024 11:48 AM 203 mg/dL N Blood chemistry[[id number]] Glucose [Mass/volume] in Serum or Plasma [2345-7] 02/16/2024 09:15 AM 174 mg/dL N Blood chemistry[[id number]] Glucose [Mass/volume] in Serum or Plasma [2345-7] 02/15/2024 04:30 PM 136 mg/dL N Blood chemistry[[id number]] Glucose [Mass/volume] in Serum or Plasma [2345-7] 02/15/2024 12:13 PM 93 mg/dL N Blood chemistry[[id number]] Glucose [Mass/volume] in Serum or Plasma [2345-7] 02/15/2024 12:09 PM 144 mg/dL N Blood chemistry[[id number]] Glucose [Mass/volume] in Serum or Plasma [2345-7] 02/15/2024 09:05 AM 110 mg/dL N COVID-19 Test Viral Antigen null flavor [null] 02/14/2024 05:00 PM See note NEG COVID-19 Test Viral Antigen Blood chemistry[[id number]] Glucose [Mass/volume] in Serum or Plasma [2345-7] 02/14/2024 04:36 PM 215 mg/dL N Blood chemistry[[id number]] Glucose [Mass/volume] in Serum or Plasma [2345-7] 02/14/2024 03:26 PM 132 mg/dL N Blood chemistry[[id number]] Glucose [Mass/volume] in Serum or Plasma [2345-7] 02/14/2024 12:09 PM 290 mg/dL N Blood chemistry[[id number]] Glucose [Mass/volume] in Serum or Plasma [2345-7] 02/14/2024 08:14 AM 251 mg/dL N Blood chemistry[[id number]] Glucose [Mass/volume] in Serum or Plasma [2345-7] 02/13/2024 05:06 PM 220 mg/dL N Blood chemistry[[id number]] Glucose [Mass/volume] in Serum or Plasma [2345-7] 02/13/2024 12:59 PM 127 mg/dL N Blood chemistry[[id number]] Glucose [Mass/volume] in Serum or Plasma [2345-7] 02/13/2024 12:34 PM 318 mg/dL N Blood chemistry[[id number]] Glucose [Mass/volume] in Serum or Plasma [2345-7] 02/13/2024 09:48 AM 212 mg/dL N Blood chemistry[[id number]] Glucose [Mass/volume] in Serum or Plasma [2345-7] 02/12/2024 04:32 PM 165 mg/dL N Blood chemistry[[id number]] Glucose [Mass/volume] in Serum or Plasma [2345-7] 02/12/2024 12:12 PM 136 mg/dL N Blood chemistry[[id number]] Glucose [Mass/volume] in Serum or Plasma [2345-7] 02/12/2024 12:01 PM 222 mg/dL N Blood chemistry[[id number]] Glucose [Mass/volume] in Serum or Plasma [2345-7] 02/12/2024 09:21 AM 223 mg/dL N Blood chemistry[[id number]] Glucose [Mass/volume] in Serum or Plasma [2345-7] 02/11/2024 05:30 PM 139 mg/dL N Blood chemistry[[id number]] Glucose [Mass/volume] in Serum or Plasma [2345-7] 02/11/2024 01:03 PM 112 mg/dL N Blood chemistry[[id number]] Glucose [Mass/volume] in Serum or Plasma [2345-7] 02/11/2024 12:59 PM 85 mg/dL N Blood chemistry[[id number]] Glucose [Mass/volume] in Serum or Plasma [2345-7] 02/11/2024 10:02 AM 232 mg/dL N Blood chemistry[[id number]] Glucose [Mass/volume] in Serum or Plasma [2345-7] 02/11/2024 06:04 AM 261 mg/dL N Blood chemistry[[id number]] Glucose [Mass/volume] in Serum or Plasma [2345-7] 02/10/2024 02:49 PM 112 mg/dL N Blood chemistry[[id number]] Glucose [Mass/volume] in Serum or Plasma [2345-7] 02/10/2024 06:48 AM 182 mg/dL N Blood chemistry[[id number]] Glucose [Mass/volume] in Serum or Plasma [2345-7] 02/09/2024 05:10 PM 94 mg/dL N Blood chemistry[[id number]] Glucose [Mass/volume] in Serum or Plasma [2345-7] 02/09/2024 01:10 PM 109 mg/dL N Blood chemistry[[id number]] Glucose [Mass/volume] in Serum or Plasma [2345-7] 02/09/2024 12:10 PM 147 mg/dL N Blood chemistry[[id number]] Glucose [Mass/volume] in Serum or Plasma [2345-7] 02/09/2024 11:23 AM 93 mg/dL N Blood chemistry[[id number]] Glucose [Mass/volume] in Serum or Plasma [2345-7] 02/08/2024 05:28 PM 70 mg/dL N Blood chemistry[[id number]] Glucose [Mass/volume] in Serum or Plasma [2345-7] 02/08/2024 02:29 PM 108 mg/dL N Blood chemistry[[id number]] Glucose [Mass/volume] in Serum or Plasma [2345-7] 02/08/2024 08:38 AM 142 mg/dL N Blood chemistry[[id number]] Glucose [Mass/volume] in Serum or Plasma [2345-7] 02/07/2024 05:54 PM 89 mg/dL N COVID-19 Test Viral Antigen null flavor [null] 02/07/2024 05:00 PM See note NEG COVID-19 Test Viral Antigen Blood chemistry[[id number]] Glucose [Mass/volume] in Serum or Plasma [2345-7] 02/07/2024 02:22 PM 68 mg/dL N Blood chemistry[[id number]] Glucose [Mass/volume] in Serum or Plasma [2345-7] 02/07/2024 01:24 PM 81 mg/dL N Blood chemistry[[id number]] Glucose [Mass/volume] in Serum or Plasma [2345-7] 02/07/2024 10:43 AM 87 mg/dL N Blood chemistry[[id number]] Glucose [Mass/volume] in Serum or Plasma [2345-7] 02/06/2024 04:49 PM 123 mg/dL N Blood chemistry[[id number]] Glucose [Mass/volume] in Serum or Plasma [2345-7] 02/06/2024 03:09 PM 112 mg/dL N Blood chemistry[[id number]] Glucose [Mass/volume] in Serum or Plasma [2345-7] 02/06/2024 12:04 PM 127 mg/dL N Blood chemistry[[id number]] Glucose [Mass/volume] in Serum or Plasma [2345-7] 02/06/2024 08:54 AM 113 mg/dL N Blood chemistry[[id number]] Glucose [Mass/volume] in Serum or Plasma [2345-7] 02/05/2024 05:36 PM 163 mg/dL N Blood chemistry[[id number]] Glucose [Mass/volume] in Serum or Plasma [2345-7] 02/05/2024 01:32 PM 93 mg/dL N Blood chemistry[[id number]] Glucose [Mass/volume] in Serum or Plasma [2345-7] 02/05/2024 12:57 PM 101 mg/dL N Blood chemistry[[id number]] Glucose [Mass/volume] in Serum or Plasma [2345-7] 02/05/2024 11:26 AM 132 mg/dL N Blood chemistry[[id number]] Glucose [Mass/volume] in Serum or Plasma [2345-7] 02/04/2024 05:27 PM 70 mg/dL N Blood chemistry[[id number]] Glucose [Mass/volume] in Serum or Plasma [2345-7] 02/04/2024 03:10 PM 134 mg/dL N Blood chemistry[[id number]] Glucose [Mass/volume] in Serum or Plasma [2345-7] 02/04/2024 01:33 PM 205 mg/dL N Blood chemistry[[id number]] Glucose [Mass/volume] in Serum or Plasma [2345-7] 02/04/2024 11:19 AM 85 mg/dL N Blood chemistry[[id number]] Glucose [Mass/volume] in Serum or Plasma [2345-7] 02/03/2024 03:46 PM 154 mg/dL N Blood chemistry[[id number]] Glucose [Mass/volume] in Serum or Plasma [2345-7] 02/03/2024 12:23 PM 174 mg/dL N Blood chemistry[[id number]] Glucose [Mass/volume] in Serum or Plasma [2345-7] 02/03/2024 11:49 AM 179 mg/dL N Blood chemistry[[id number]] Glucose [Mass/volume] in Serum or Plasma [2345-7] 02/03/2024 10:13 AM 148 mg/dL N Blood chemistry[[id number]] Glucose [Mass/volume] in Serum or Plasma [2345-7] 02/02/2024 04:08 PM 90 mg/dL N Blood chemistry[[id number]] Glucose [Mass/volume] in Serum or Plasma [2345-7] 02/02/2024 12:22 PM 150 mg/dL N Blood chemistry[[id number]] Glucose [Mass/volume] in Serum or Plasma [2345-7] 02/02/2024 12:17 PM 171 mg/dL N Blood chemistry[[id number]] Glucose [Mass/volume] in Serum or Plasma [2345-7] 02/02/2024 08:57 AM 216 mg/dL N Blood chemistry[[id number]] Glucose [Mass/volume] in Serum or Plasma [2345-7] 02/01/2024 05:48 PM 98 mg/dL N Blood chemistry[[id number]] Glucose [Mass/volume] in Serum or Plasma [2345-7] 02/01/2024 12:42 PM 81 mg/dL N Blood chemistry[[id number]] Glucose [Mass/volume] in Serum or Plasma [2345-7] 02/01/2024 12:01 PM 220 mg/dL N Blood chemistry[[id number]] Glucose [Mass/volume] in Serum or Plasma [2345-7] 02/01/2024 10:09 AM 98 mg/dL N Blood chemistry[[id number]] Glucose [Mass/volume] in Serum or Plasma [2345-7] 01/31/2024 05:34 PM 97 mg/dL N COVID-19 Test Viral Antigen null flavor [null] 01/31/2024 05:00 PM See note NEG COVID-19 Test Viral Antigen Blood chemistry[[id number]] Glucose [Mass/volume] in Serum or Plasma [2345-7] 01/31/2024 02:15 PM 137 mg/dL N Blood chemistry[[id number]] Glucose [Mass/volume] in Serum or Plasma [2345-7] 01/31/2024 12:58 PM 163 mg/dL N Blood chemistry[[id number]] Glucose [Mass/volume] in Serum or Plasma [2345-7] 01/31/2024 09:18 AM 94 mg/dL N Blood chemistry[[id number]] Glucose [Mass/volume] in Serum or Plasma [2345-7] 01/30/2024 04:30 PM 78 mg/dL N Blood chemistry[[id number]] Glucose [Mass/volume] in Serum or Plasma [2345-7] 01/30/2024 12:26 PM 234 mg/dL N Blood chemistry[[id number]] Glucose [Mass/volume] in Serum or Plasma [2345-7] 01/30/2024 12:17 PM 84 mg/dL N Blood chemistry[[id number]] Glucose [Mass/volume] in Serum or Plasma [2345-7] 01/30/2024 09:31 AM 131 mg/dL N Blood chemistry[[id number]] Glucose [Mass/volume] in Serum or Plasma [2345-7] 01/29/2024 04:09 PM 135 mg/dL N Blood chemistry[[id number]] Glucose [Mass/volume] in Serum or Plasma [2345-7] 01/29/2024 01:51 PM 150 mg/dL N Blood chemistry[[id number]] Glucose [Mass/volume] in Serum or Plasma [2345-7] 01/29/2024 12:02 PM 117 mg/dL N Blood chemistry[[id number]] Glucose [Mass/volume] in Serum or Plasma [2345-7] 01/29/2024 09:26 AM 102 mg/dL N Blood chemistry[[id number]] Glucose [Mass/volume] in Serum or Plasma [2345-7] 01/28/2024 05:12 PM 118 mg/dL N Blood chemistry[[id number]] Glucose [Mass/volume] in Serum or Plasma [2345-7] 01/28/2024 12:48 PM 88 mg/dL N Blood chemistry[[id number]] Glucose [Mass/volume] in Serum or Plasma [2345-7] 01/28/2024 12:33 PM 110 mg/dL N Blood chemistry[[id number]] Glucose [Mass/volume] in Serum or Plasma [2345-7] 01/28/2024 11:12 AM 112 mg/dL N Blood chemistry[[id number]] Glucose [Mass/volume] in Serum or Plasma [2345-7] 01/27/2024 05:56 PM 102 mg/dL N Blood chemistry[[id number]] Glucose [Mass/volume] in Serum or Plasma [2345-7] 01/27/2024 01:10 PM 97 mg/dL N Blood chemistry[[id number]] Glucose [Mass/volume] in Serum or Plasma [2345-7] 01/27/2024 11:38 AM 140 mg/dL N Blood chemistry[[id number]] Glucose [Mass/volume] in Serum or Plasma [2345-7] 01/27/2024 09:57 AM 100 mg/dL N Blood chemistry[[id number]] Glucose [Mass/volume] in Serum or Plasma [2345-7] 01/26/2024 04:54 PM 130 mg/dL N Blood chemistry[[id number]] Glucose [Mass/volume] in Serum or Plasma [2345-7] 01/26/2024 12:36 PM 126 mg/dL N Blood chemistry[[id number]] Glucose [Mass/volume] in Serum or Plasma [2345-7] 01/26/2024 12:03 PM 92 mg/dL N Blood chemistry[[id number]] Glucose [Mass/volume] in Serum or Plasma [2345-7] 01/26/2024 09:37 AM 107 mg/dL N Blood chemistry[[id number]] Glucose [Mass/volume] in Serum or Plasma [2345-7] 01/25/2024 03:08 PM 111 mg/dL N Blood chemistry[[id number]] Glucose [Mass/volume] in Serum or Plasma [2345-7] 01/25/2024 12:08 PM 125 mg/dL N Blood chemistry[[id number]] Glucose [Mass/volume] in Serum or Plasma [2345-7] 01/25/2024 09:38 AM 121 mg/dL N Blood chemistry[[id number]] Glucose [Mass/volume] in Serum or Plasma [2345-7] 01/25/2024 06:07 AM 116 mg/dL N COVID-19 Test Viral Antigen null flavor [null] 01/24/2024 05:00 PM See note NEG COVID-19 Test Viral Antigen Blood chemistry[[id number]] Glucose [Mass/volume] in Serum or Plasma [2345-7] 01/24/2024 03:01 PM 96 mg/dL N Blood chemistry[[id number]] Glucose [Mass/volume] in Serum or Plasma [2345-7] 01/24/2024 11:40 AM 236 mg/dL N Blood chemistry[[id number]] Glucose [Mass/volume] in Serum or Plasma [2345-7] 01/24/2024 10:33 AM 96 mg/dL N Blood chemistry[[id number]] Glucose [Mass/volume] in Serum or Plasma [2345-7] 01/24/2024 08:24 AM 154 mg/dL N Blood chemistry[[id number]] Glucose [Mass/volume] in Serum or Plasma [2345-7] 01/23/2024 05:05 PM 95 mg/dL N Blood chemistry[[id number]] Glucose [Mass/volume] in Serum or Plasma [2345-7] 01/23/2024 02:23 PM 151 mg/dL N Blood chemistry[[id number]] Glucose [Mass/volume] in Serum or Plasma [2345-7] 01/23/2024 01:15 PM 150 mg/dL N Blood chemistry[[id number]] Glucose [Mass/volume] in Serum or Plasma [2345-7] 01/23/2024 11:09 AM 158 mg/dL N Blood chemistry[[id number]] Glucose [Mass/volume] in Serum or Plasma [2345-7] 01/22/2024 05:45 PM 119 mg/dL N Blood chemistry[[id number]] Glucose [Mass/volume] in Serum or Plasma [2345-7] 01/22/2024 03:45 PM 103 mg/dL N Blood chemistry[[id number]] Glucose [Mass/volume] in Serum or Plasma [2345-7] 01/22/2024 01:47 PM 118 mg/dL N Blood chemistry[[id number]] Glucose [Mass/volume] in Serum or Plasma [2345-7] 01/22/2024 09:28 AM 207 mg/dL N Blood chemistry[[id number]] Glucose [Mass/volume] in Serum or Plasma [2345-7] 01/21/2024 04:07 PM 143 mg/dL N Blood chemistry[[id number]] Glucose [Mass/volume] in Serum or Plasma [2345-7] 01/21/2024 02:06 PM 148 mg/dL N Blood chemistry[[id number]] Glucose [Mass/volume] in Serum or Plasma [2345-7] 01/21/2024 12:36 PM 95 mg/dL N Blood chemistry[[id number]] Glucose [Mass/volume] in Serum or Plasma [2345-7] 01/21/2024 10:23 AM 130 mg/dL N Blood chemistry[[id number]] Glucose [Mass/volume] in Serum or Plasma [2345-7] 01/20/2024 04:58 PM 178 mg/dL N Blood chemistry[[id number]] Glucose [Mass/volume] in Serum or Plasma [2345-7] 01/20/2024 12:17 PM 111 mg/dL N Blood chemistry[[id number]] Glucose [Mass/volume] in Serum or Plasma [2345-7] 01/20/2024 12:12 PM 172 mg/dL N Blood chemistry[[id number]] Glucose [Mass/volume] in Serum or Plasma [2345-7] 01/20/2024 10:08 AM 206 mg/dL N Blood chemistry[[id number]] Glucose [Mass/volume] in Serum or Plasma [2345-7] 01/19/2024 04:05 PM 144 mg/dL N Blood chemistry[[id number]] Glucose [Mass/volume] in Serum or Plasma [2345-7] 01/19/2024 12:35 PM 108 mg/dL N Blood chemistry[[id number]] Glucose [Mass/volume] in Serum or Plasma [2345-7] 01/19/2024 11:42 AM 266 mg/dL N Blood chemistry[[id number]] Glucose [Mass/volume] in Serum or Plasma [2345-7] 01/19/2024 09:21 AM 224 mg/dL N Blood chemistry[[id number]] Glucose [Mass/volume] in Serum or Plasma [2345-7] 01/18/2024 04:32 PM 129 mg/dL N Blood chemistry[[id number]] Glucose [Mass/volume] in Serum or Plasma [2345-7] 01/18/2024 02:31 PM 96 mg/dL N Blood chemistry[[id number]] Glucose [Mass/volume] in Serum or Plasma [2345-7] 01/18/2024 11:59 AM 169 mg/dL N Blood chemistry[[id number]] Glucose [Mass/volume] in Serum or Plasma [2345-7] 01/18/2024 10:02 AM 154 mg/dL N COVID-19 Test Viral Antigen null flavor [null] 01/17/2024 05:00 PM See note NEG COVID-19 Test Viral Antigen Blood chemistry[[id number]] Glucose [Mass/volume] in Serum or Plasma [2345-7] 01/17/2024 04:59 PM 207 mg/dL N Blood chemistry[[id number]] Glucose [Mass/volume] in Serum or Plasma [2345-7] 01/17/2024 02:12 PM 83 mg/dL N Blood chemistry[[id number]] Glucose [Mass/volume] in Serum or Plasma [2345-7] 01/17/2024 12:42 PM 174 mg/dL N Blood chemistry[[id number]] Glucose [Mass/volume] in Serum or Plasma [2345-7] 01/17/2024 09:38 AM 197 mg/dL N Blood chemistry[[id number]] Glucose [Mass/volume] in Serum or Plasma [2345-7] 01/16/2024 03:59 PM 93 mg/dL N Blood chemistry[[id number]] Glucose [Mass/volume] in Serum or Plasma [2345-7] 01/16/2024 12:17 PM 145 mg/dL N Blood chemistry[[id number]] Glucose [Mass/volume] in Serum or Plasma [2345-7] 01/16/2024 12:10 PM 97 mg/dL N Blood chemistry[[id number]] Glucose [Mass/volume] in Serum or Plasma [2345-7] 01/16/2024 09:24 AM 118 mg/dL N Blood chemistry[[id number]] Glucose [Mass/volume] in Serum or Plasma [2345-7] 01/15/2024 12:55 PM 187 mg/dL N Blood chemistry[[id number]] Glucose [Mass/volume] in Serum or Plasma [2345-7] 01/15/2024 12:44 PM 114 mg/dL N Blood chemistry[[id number]] Glucose [Mass/volume] in Serum or Plasma [2345-7] 01/15/2024 11:02 AM 185 mg/dL N Blood chemistry[[id number]] Glucose [Mass/volume] in Serum or Plasma [2345-7] 01/15/2024 06:57 AM 150 mg/dL N Blood chemistry[[id number]] Glucose [Mass/volume] in Serum or Plasma [2345-7] 01/14/2024 05:26 PM 221 mg/dL N Blood chemistry[[id number]] Glucose [Mass/volume] in Serum or Plasma [2345-7] 01/14/2024 12:33 PM 121 mg/dL N Blood chemistry[[id number]] Glucose [Mass/volume] in Serum or Plasma [2345-7] 01/14/2024 12:24 PM 266 mg/dL N Blood chemistry[[id number]] Glucose [Mass/volume] in Serum or Plasma [2345-7] 01/14/2024 09:53 AM 346 mg/dL N Blood chemistry[[id number]] Glucose [Mass/volume] in Serum or Plasma [2345-7] 01/13/2024 04:51 PM 199 mg/dL N Blood chemistry[[id number]] Glucose [Mass/volume] in Serum or Plasma [2345-7] 01/13/2024 12:26 PM 125 mg/dL N Blood chemistry[[id number]] Glucose [Mass/volume] in Serum or Plasma [2345-7] 01/13/2024 12:12 PM 256 mg/dL N Blood chemistry[[id number]] Glucose [Mass/volume] in Serum or Plasma [2345-7] [...] Vaccine Unassigned Route of Administration 2022 Completed Pneumococcal Vaccine Unassigned Route of Administratio n 12/15/2024 Refused Influenza Vaccine Unassigned Route of Administration 1 Completed COVID-19 Vaccine Unassigned Route of Administration Completed Medications Medication Instructions Route Dosage Frequency [...] without complications of bilateral lower extremity Active cholecalcifero l (vitamin D3) 25 mcg [...] Hours - PRN oral 1.0 6.0 h 01/29 Active insulin lispro 100 unit/mL insulin pen, [...] Bedtime, clinical indication: anxiety/depre ssion oral 1.0 04/12 Active amiodarone 100 mg tablet (amiodarone) 1, oral, Once A Day oral 1.0 1.0 d 2024 Active Refresh Lacri-Lube (white petrolatum-min eral oil) 56.8-42.5 % ointment (Refresh Lacri-Lube (white petrolatum-min eral oil)) 1/4 inch, both eyes, At Bedtime 1.0 2024 Dry eye syndrome of bilateral lacrimal glands Active cefdinir 300 mg capsule (cefdinir) 1 tab, oral, Twice A Day, clinical indication: UTI oral 1.0 12.0 h 12/13 Active Iodosorb (cadexomer iodine) 0.9 % gel (Iodosorb (cadexomer iodine)) as directed, topical, Every Shift, coccyx: Cleanse with ns and gauze, apply gel to wound bed and cover with bordered foam dressing topical 1.0 8.0 h 12/07 Active Tresiba FlexTouch U-100 (insulin degludec) 100 unit/mL (3 mL) insulin pen (Tresiba FlexTouch U-100 (insulin degludec)) 6 units, subcutaneous, At Bedtime subcutane ous 1.0 01/15 Active Lantus Solostar U-100 Insulin (insulin glargine) 100 unit/mL (3 mL) insulin pen (Lantus Solostar U-100 Insulin (insulin glargine)) 6 units, subcutaneous, At Bedtime subcutane ous 1.0 2024 Active MediHoney (honey) (honey) 80 % gel (MediHoney (honey) (honey)) buttock, topical, Once A Day, buttock: Cleanse with ns and gauze, apply medi-honey covered packing strip and cover with non adhesive dressing q shift topical 1.0 1.0 d 02/06 Active hydrocodone-ac etaminophen 10-325 mg tablet (hydrocodone-a cetaminophen) 1 tab, oral, Every 4 Hours - PRN oral 1.0 4.0 h 02/12 Active fluconazole 150 mg tablet (fluconazole) 150mg, oral, Once - One Time oral 1.0 02/01 Active prednisone 20 mg tablet (prednisone) 1, oral, Once A Day oral 1.0 1.0 d 02/11 Active hydrocodone-ac etaminophen 10-325 mg tablet (hydrocodone-a cetaminophen) 1 tab, oral, Once - One Time oral 1.0 4.0 h 02/12 Active hydrocodone-ac etaminophen 5-325 mg tablet (hydrocodone-a cetaminophen) 2 tabs, oral, Once - One Time oral 1.0 02/12 Active Afluria 0811-3109 (3yr up)(PF) (flu vac [id number] 36mos up(pf)) 45 mcg (15 mcg x 3)/0.5 m syringe (Afluria (3yr up)(PF) (flu vac [id number] 36mos up(pf))) 0.5ml, intramuscular , Once - One Time intramusc ular 1.0 02/13 Active Afluria (3yr up)(PF) (flu vac [id number] 36mos up(pf)) 45 mcg (15 mcg x 3)/0.5 m syringe (Afluria (3yr up)(PF) (flu vac [id number] 36mos up(pf))) 0.5ml, intramuscular , Once - One Time intramusc ular 1.0 02/13 Active hydrocodone-ac etaminophen 10-325 mg tablet (hydrocodone-a cetaminophen) 1 tab, oral, Once - One Time, ekit pull oral 1.0 02/09 Active gentian roly 1 % solution (gentian roly) apply to buttock, topical, Once A Day, Buttock: Apply to macerated area only around wound bed ensuring not to get into wound topical 1.0 1.0 d 2024 Active Novolog FlexPen U-100 Insulin (insulin aspart u-100) 100 unit/mL (3 mL) insulin pen (Novolog FlexPen U-100 Insulin (insulin aspart u-100)) 3 units, subcutaneous, With Meals subcutane ous 1.0 03/26 Active insulin lispro 100 unit/mL insulin pen (insulin lispro) 3 units, subcutaneous, With Meals subcutane ous 1.0 2024 Active Zoloft (sertraline) 25 mg tablet (Zoloft (sertraline)) 3 tabs= 75 mg, oral, At Bedtime oral 1.0 2024 Active hydrocodone-ac etaminophen 10-325 mg tablet (hydrocodone-a cetaminophen) 1 tab, oral, Every 4 Hours - PRN oral 1.0 4.0 h 04/23 Active hydrocodone-ac etaminophen 10-325 mg tablet (hydrocodone-a cetaminophen) 1 tab, oral, Every 4 Hours - PRN oral 1.0 4.0 h 2024 Active Vital Signs Date Vital Result Comment 04/11/2024 07:16 PM Temperature (8310-5) 98.3 [degF] Oxygen Saturation (50713-0) 97 % Respiratory Rate (9279-1) 20 /min Heart Rate (8867-4) 70 /min 04/11/2024 06:29 PM Blood Pressure Systolic (8480-6) 1 04 mm[Hg] Blood Pressure Diastolic (8462-4) 58 mm[Hg] 04/11/2024 12:10 PM Temperature (8310-5) 97.6 [degF] Oxygen Saturation (22476-5) 97 % Respiratory Rate (9279-1) 16 /min Heart Rate (8867-4) 63 /min Blood Pressure Systolic (8480-6) 116 mm[Hg] Blood Pressure Diastolic (8462-4) 58 mm[Hg] 04/11/2024 07:07 AM Blood Pressure Systolic (8480-6) 1 29 mm[Hg] Blood Pressure Diastolic (8462-4) 65 mm[Hg] 04/10/2024 07:37 PM Temperature (8310-5) 98.6 [degF] Oxygen Saturation (64500-5) 98 % Respiratory Rate (9279-1) 18 /min Heart Rate (8867-4) 76 /min 04/10/2024 06:49 PM Blood Pressure Systolic (8480-6) 1 18 mm[Hg] Blood Pressure Diastolic (8462-4) 70 mm[Hg] 04/10/2024 09:49 AM Temperature (8310-5) 97.2 [degF] Oxygen Saturation (81892-7) 98 % Respiratory Rate (9279-1) 18 /min Heart Rate (8867-4) 63 /min Blood Pressure Systolic (8480-6) 135 mm[Hg] Blood Pressure Diastolic (8462-4) 78 mm[Hg] 04/10/2024 09:13 AM Blood Pressure Systolic (8480-6) 1 35 mm[Hg] Blood Pressure Diastolic (8462-4) 78 mm[Hg] 04/09/2024 11:41 PM Temperature (8310-5) 98 [degF] Oxygen Saturation (42294-3) 95 % Respiratory Rate (9279-1) 16 /min Heart Rate (8867-4) 88 /min Blood Pressure Systolic (8480-6) 133 mm[Hg] Blood Pressure Diastolic (8462-4) 8 mm[Hg] 04/09/2024 10:34 PM Blood Pressure Systolic (8480-6) 1 10 mm[Hg] Blood Pressure Diastolic (8462-4) 80 mm[Hg] 04/09/2024 08:20 AM Temperature (8310-5) 97.3 [degF] Oxygen Saturation (40307-2) 92 % Respiratory Rate (9279-1) 18 /min Heart Rate (8867-4) 74 /min Blood Pressure Systolic (8480-6) 137 mm[Hg] Blood Pressure Diastolic (8462-4) 65 mm[Hg] 04/09/2024 08:19 AM Blood Pressure Systolic (8480-6) 1 37 mm[Hg] Blood Pressure Diastolic (8462-4) 65 mm[Hg] 04/08/2024 08:55 PM Temperature (8310-5) 98.1 [degF] Oxygen Saturation (90130-3) 95 % Respiratory Rate (9279-1) 18 /min Heart Rate (8867-4) 70 /min 04/08/2024 10:04 AM Temperature (8310-5) 98.4 [degF] Oxygen Saturation (78545-9) 91 % Respiratory Rate (9279-1) 20 /min Heart Rate (8867-4) 63 /min 04/07/2024 10:01 PM Temperature (8310-5) 97 [degF] Oxygen Saturation (95020-3) 95 % Respiratory Rate (9279-1) 18 /min Heart Rate (8867-4) 70 /min 04/07/2024 08:26 AM Temperature (8310-5) 97.9 [degF] Oxygen Saturation (57224-1) 96 % Respiratory Rate (9279-1) 16 /min Heart Rate (8867-4) 87 /min 04/05/2024 08:43 AM Body Weight (15921-2) 125.8 [lb_av ] Body Mass Index (44266-7) 24.57 kg/m2 04/02/2024 01:00 PM Body Weight (71143-2) 126.6 [lb_av ] Body Mass Index (07612-9) 24.72 kg/m2 03/29/2024 10:25 AM Body Weight (24265-5) 123.2 [lb_av ] Body Mass Index (62556-4) 24.06 kg/m2 03/22/2024 09:21 AM Body Weight (43057-6) 125.2 [lb_av ] Body Mass Index (68350-4) 24.45 kg/m2 03/15/2024 04:26 PM Body Weight (38742-0) 124 [lb_av] Body Mass Index (45762-7) 24.21 kg/m2 03/08/2024 10:36 AM Body Weight (66790-3) 123.4 [lb_av ] Body Mass Index (97255-7) 24.1 kg/m2 03/07/2024 04:52 PM Body Weight (11366-7) 122.2 [lb_av ] Body Mass Index (99607-6) 23.86 kg/m2 03/06/2024 08:44 PM Body Weight (05091-0) 122.4 [lb_av ] Body Mass Index (22144-9) 23.9 kg/m2 03/03/2024 12:30 PM Body Weight (47881-5) 125 [lb_av] Body Mass Index (92422-8) 24.41 kg/m2 02/29/2024 05:43 AM Body Weight (48345-9) 126 [lb_av] Body Mass Index (11920-2) 24.61 kg/m2 02/28/2024 05:33 AM Body Weight (18210-6) 126 [lb_av] Body Mass Index (01604-0) 24.61 kg/m2 02/27/2024 05:42 AM Body Weight (70442-9) 126.2 [lb_av ] Body Mass Index (92473-5) 24.64 kg/m2 02/26/2024 03:33 PM Body Weight (07301-8) 126.4 [lb_av ] Body Mass Index (12532-6) 24.68 kg/m2 02/25/2024 10:26 AM Body Weight (80673-3) 122.4 [lb_av ] Body Mass Index (57497-5) 23.9 kg/m2 02/24/2024 05:16 AM Body Weight (00988-7) 120 [lb_av] Body Mass Index (09757-8) 23.43 kg/m2 02/23/2024 12:58 PM Body Weight (69703-0) 118 [lb_av] Body Mass Index (23191-3) 23.04 kg/m2 02/23/2024 05:17 AM Body Weight (65249-2) 118.4 [lb_av ] Body Mass Index (60163-3) 23.12 kg/m2 02/09/2024 01:07 PM Body Weight (12045-5) 108.8 [lb_av ] Body Mass Index (76723-5) 21.25 kg/m2 02/02/2024 04:20 PM Body Weight (76699-6) 109.4 [lb_av ] Body Mass Index (94003-3) 21.36 kg/m2 02/01/2024 11:39 AM Body Weight (52705-8) 112 [lb_av] Body Mass Index (76598-5) 21.87 kg/m2 01/30/2024 10:55 AM Body Weight (88134-6) 112.4 [lb_av ] Body Mass Index (19185-0) 21.95 kg/m2 01/29/2024 12:08 PM Body Weight (08813-3) 116.2 [lb_av ] Body Mass Index (20340-5) 22.69 kg/m2 01/28/2024 04:18 PM Body Weight (04557-2) 116.4 [lb_av ] Body Mass Index (62550-0) 22.73 kg/m2 01/26/2024 01:16 PM Body Weight (87526-5) 116 [lb_av] Body Mass Index (25521-0) 22.65 kg/m2 09/01/2018 09:52 AM Body Height (8302-2) 60 [in_us] 04/12/2024 09:37 AM Blood Pressure Systolic (8480-6) 1 22 mm[Hg] Blood Pressure Diastolic (8462-4) 68 mm[Hg] 04/12/2024 07:56 PM Temperature (8310-5) 98.2 [degF] Oxygen Saturation (54830-4) 100 % Respiratory Rate (9279-1) 18 /min Heart Rate (8867-4) 65 /min 04/12/2024 06:25 PM Blood Pressure Systolic (8480-6) 1 13 mm[Hg] Blood Pressure Diastolic (8462-4) 64 mm[Hg] 04/14/2024 05:37 PM Temperature (8310-5) 98.6 [degF] Oxygen Saturation (66911-4) 99 % Respiratory Rate (9279-1) 17 /min Heart Rate (8867-4) 67 /min Blood Pressure Systolic (8480-6) 140 mm[Hg] Blood Pressure Diastolic (8462-4) 78 mm[Hg] 04/14/2024 10:45 AM Blood Pressure Systolic (8480-6) 1 40 mm[Hg] Blood Pressure Diastolic (8462-4) 78 mm[Hg] 04/13/2024 07:30 PM Temperature (8310-5) 98.4 [degF] Oxygen Saturation (14530-3) 96 % Respiratory Rate (9279-1) 18 /min Heart Rate (8867-4) 81 /min 04/13/2024 06:31 PM Blood Pressure Systolic (8480-6) 1 17 mm[Hg] Blood Pressure Diastolic (8462-4) 76 mm[Hg] 04/13/2024 09:24 AM Temperature (8310-5) 97.9 [degF] Oxygen Saturation (52399-1) 95 % Respiratory Rate (9279-1) 16 /min Heart Rate (8867-4) 72 /min Blood Pressure Systolic (8480-6) 124 mm[Hg] Blood Pressure Diastolic (8462-4) 80 mm[Hg] 04/13/2024 08:12 AM Blood Pressure Systolic (8480-6) 1 24 mm[Hg] Blood Pressure Diastolic (8462-4) 69 mm[Hg] 04/15/2024 02:24 PM Temperature (8310-5) 98.5 [degF] Oxygen Saturation (90172-1) 93 % Respiratory Rate (9279-1) 17 /min Heart Rate (8867-4) 64 /min Blood Pressure Systolic (8480-6) 117 mm[Hg] Blood Pressure Diastolic (8462-4) 63 mm[Hg] 04/15/2024 12:37 PM Blood Pressure Systolic (8480-6) 1 17 mm[Hg] Blood Pressure Diastolic (8462-4) 63 mm[Hg] 04/15/2024 02:39 AM Temperature (8310-5) 98 [degF] Oxygen Saturation (89612-1) 95 % Respiratory Rate (9279-1) 16 /min [...] PM Temperature (8310-5) 97 [degF] Oxygen Saturation (98874-2) 95 % Respiratory Rate (9279-1) 18 /min 04/15/2024 10:56 PM Blood Pressure Systolic (8480-6) 1 32 mm[Hg] Blood Pressure Diastolic (8462-4) 84 mm[Hg] 04/16/2024 11:47 PM Temperature (8310-5) 97 [degF] Oxygen Saturation (89082-7) 95 % Respiratory Rate (9279-1) 18 /min Heart Rate (8867-4) 80 /min Blood Pressure Systolic (8480-6) 130 mm[Hg] Blood Pressure Diastolic (8462-4) 84 mm[Hg] 04/16/2024 09:07 PM Blood Pressure Systolic (8480-6) 1 36 mm[Hg] Blood Pressure Diastolic (8462-4) 84 mm[Hg] 04/16/2024 06:04 PM Temperature (8310-5) 98.2 [degF] Oxygen Saturation (19598-4) 98 % Respiratory Rate (9279-1) 20 /min Heart Rate (8867-4) 80 /min 04/18/2024 07:45 AM Blood Pressure Systolic (8480-6) 1 17 mm[Hg] Blood Pressure Diastolic (8462-4) 85 mm[Hg] 04/17/2024 10:05 PM Temperature (8310-5) 97.9 [degF] Oxygen Saturation (56736-6) 96 % Respiratory Rate (9279-1) 18 /min Heart Rate (8867-4) 81 /min Blood Pressure Systolic (8480-6) 145 mm[Hg] Blood Pressure Diastolic (8462-4) 101 mm[Hg] 04/17/2024 04:13 PM Temperature (8310-5) 98 [degF] Oxygen Saturation (74777-1) 94 % Respiratory Rate (9279-1) 18 /min [...] PM Temperature (8310-5) 97.7 [degF] Oxygen Saturation (95511-5) 97 % Respiratory Rate (9279-1) 18 /min Heart Rate (8867-4) 63 /min 04/18/2024 06:39 PM Blood Pressure Systolic (8480-6) 1 22 mm[Hg] Blood Pressure Diastolic (8462-4) 76 mm[Hg] 04/18/2024 12:01 PM Temperature (8310-5) 97.8 [degF] Oxygen Saturation (59601-4) 98 % Respiratory Rate (9279-1) 19 /min Heart Rate (8867-4) 81 /min Blood Pressure Systolic (8480-6) 109 mm[Hg] Blood Pressure Diastolic (8462-4) 65 mm[Hg] 04/20/2024 08:21 AM Temperature (8310-5) 97.9 [degF] Oxygen Saturation (51997-9) 94 % Respiratory Rate (9279-1) 16 /min Heart Rate (8867-4) 69 /min Blood Pressure Systolic (8480-6) 137 mm[Hg] Blood Pressure Diastolic (8462-4) 79 mm[Hg] 04/19/2024 08:46 PM Temperature (8310-5) 97.2 [degF] Oxygen Saturation (10219-1) 99 % Respiratory Rate (9279-1) 18 /min Heart Rate (8867-4) 65 /min 04/19/2024 07:16 PM Blood Pressure Systolic (8480-6) 1 13 mm[Hg] Blood Pressure Diastolic (8462-4) 45 mm[Hg] 04/19/2024 11:07 AM Temperature (8310-5) 98.6 [degF] Oxygen Saturation (77445-0) 96 % Respiratory Rate (9279-1) 17 /min Heart Rate (8867-4) 80 /min 04/20/2024 08:34 PM Temperature (8310-5) 99 [degF] Oxygen Saturation (88630-9) 99 % Respiratory Rate (9279-1) 16 /min Heart Rate (8867-4) 73 /min 04/20/2024 06:42 PM Blood Pressure Systolic (8480-6) 9 7 mm[Hg] Blood Pressure Diastolic (8462-4) 52 mm[Hg] 04/21/2024 09:23 PM Blood Pressure Systolic (8480-6) 1 32 mm[Hg] Blood Pressure Diastolic (8462-4) 84 mm[Hg] 04/21/2024 06:34 PM Temperature (8310-5) 98.5 [degF] Oxygen Saturation (17398-6) 97 % Respiratory Rate (9279-1) 17 /min Heart Rate (8867-4) 78 /min Blood Pressure Systolic (8480-6) 117 mm[Hg] Blood Pressure Diastolic (8462-4) 65 mm[Hg] 04/21/2024 11:31 AM Body Weight (96732-2) 126 [lb_av] Body Mass Index (70693-0) 24.61 kg/m2 04/21/2024 10:01 AM Blood Pressure Systolic (8480-6) 1 17 mm[Hg] Blood Pressure Diastolic (8462-4) 65 mm[Hg] 04/22/2024 10:23 AM Temperature (8310-5) 97 [degF] Oxygen Saturation (36556-0) 97 % Respiratory Rate (9279-1) 20 /min Heart Rate (8867-4) 58 /min 04/22/2024 07:42 AM Blood Pressure Systolic (8480-6) 1 15 mm[Hg] Blood Pressure Diastolic (8462-4) 63 mm[Hg] 04/22/2024 12:22 AM Temperature (8310-5) 98 [degF] Oxygen Saturation (75250-3) 96 % Respiratory Rate (9279-1) 16 /min Heart Rate (8867-4) 80 /min 04/22/2024 07:12 PM Temperature (8310-5) 98.1 [degF] Oxygen Saturation (30858-2) 98 % Respiratory Rate (9279-1) 19 /min Heart Rate (8867-4) 67 /min Blood Pressure Systolic (8480-6) 125 mm[Hg] Blood Pressure Diastolic (8462-4) 66 mm[Hg] 04/23/2024 08:31 PM Blood Pressure Systolic (8480-6) 1 45 mm[Hg] Blood Pressure Diastolic (8462-4) 72 mm[Hg] 04/23/2024 08:16 PM Temperature (8310-5) 98.8 [degF] Oxygen Saturation (39496-8) 99 % Respiratory Rate (9279-1) 21 /min Heart Rate (8867-4) 67 /min Blood Pressure Systolic (8480-6) 145 mm[Hg] Blood Pressure Diastolic (8462-4) 72 mm[Hg] 04/23/2024 08:51 AM Temperature (8310-5) 97.4 [degF] Oxygen Saturation (98040-8) 99 % Respiratory Rate (9279-1) 16 /min Heart Rate (8867-4) 60 /min Blood Pressure Systolic (8480-6) 129 mm[Hg] Blood Pressure Diastolic (8462-4) 71 mm[Hg] 04/23/2024 08:50 AM Blood Pressure Systolic (8480-6) 1 29 mm[Hg] Blood Pressure Diastolic (8462-4) 71 mm[Hg] 04/24/2024 12:07 PM Temperature (8310-5) 97.8 [degF] Oxygen Saturation (89307-2) 92 % Respiratory Rate (9279-1) 20 /min Heart Rate (8867-4) 68 /min Blood Pressure Systolic (8480-6) 125 mm[Hg] Blood Pressure Diastolic (8462-4) 62 mm[Hg] 04/24/2024 07:41 AM Blood Pressure Systolic (8480-6) 1 26 mm[Hg] Blood Pressure Diastolic (8462-4) 65 mm[Hg] 04/25/2024 08:53 AM Temperature (8310-5) 97.7 [degF] Oxygen Saturation (37863-7) 96 % Respiratory Rate (9279-1) 16 /min Heart Rate (8867-4) 72 /min Blood Pressure Systolic (8480-6) 137 mm[Hg] Blood Pressure Diastolic (8462-4) 75 mm[Hg] 04/24/2024 07:36 PM Temperature (8310-5) 97.4 [degF] Oxygen Saturation (95811-5) 95 % Respiratory Rate (9279-1) 18 /min Heart Rate (8867-4) 60 /min 04/24/2024 06:47 PM Blood Pressure Systolic (8480-6) 1 10 mm[Hg] Blood Pressure Diastolic (8462-4) 66 mm[Hg] 04/26/2024 08:32 AM Temperature (8310-5) 97.6 [degF] Oxygen Saturation (84993-7) 92 % Respiratory Rate (9279-1) 16 /min Heart Rate (8867-4) 59 /min Blood Pressure Systolic (8480-6) 102 mm[Hg] Blood Pressure Diastolic (8462-4) 58 mm[Hg] 04/26/2024 07:34 AM Blood Pressure Systolic (8480-6) 1 32 mm[Hg] Blood Pressure Diastolic (8462-4) 65 mm[Hg] 04/25/2024 07:11 PM Temperature (8310-5) 98.2 [degF] Oxygen Saturation (97898-9) 95 % Respiratory Rate (9279-1) 18 /min Heart Rate (8867-4) 76 /min 04/25/2024 06:32 PM Blood Pressure Systolic (8480-6) 1 40 mm[Hg] Blood Pressure Diastolic (8462-4) 80 mm[Hg] 04/26/2024 06:45 PM Temperature (8310-5) 98.4 [degF] Oxygen Saturation (65937-3) 99 % Respiratory Rate (9279-1) 18 /min Heart Rate (8867-4) 63 /min 04/26/2024 06:35 PM Blood Pressure Systolic (8480-6) 1 18 mm[Hg] Blood Pressure Diastolic (8462-4) 60 mm[Hg] 04/27/2024 06:44 PM Temperature (8310-5) 98.1 [degF] Oxygen Saturation (64452-0) 97 % Respiratory Rate (9279-1) 18 /min Heart Rate (8867-4) 80 /min 04/27/2024 06:32 PM Blood Pressure Systolic (8480-6) 1 26 mm[Hg] Blood Pressure Diastolic (8462-4) 64 mm[Hg] 04/27/2024 12:46 PM Temperature (8310-5) 97.4 [degF] Oxygen Saturation (54296-7) 98 % Respiratory Rate (9279-1) 20 /min Heart Rate (8867-4) 77 /min Blood Pressure Systolic (8480-6) 135 mm[Hg] Blood Pressure Diastolic (8462-4) 76 mm[Hg] 04/27/2024 07:32 AM Blood Pressure Systolic (8480-6) 1 35 mm[Hg] Blood Pressure Diastolic (8462-4) 76 mm[Hg] 04/28/2024 09:57 AM Temperature (8310-5) 98.2 [degF] Oxygen Saturation (24089-1) 95 % Respiratory Rate (9279-1) 17 /min Heart Rate (8867-4) 66 /min 04/28/2024 09:56 AM Blood Pressure Systolic (8480-6) 1 27 mm[Hg] Blood Pressure Diastolic (8462-4) 97 mm[Hg] 04/29/2024 09:46 AM Temperature (8310-5) 98.6 [degF] Oxygen Saturation (44258-7) 98 % Respiratory Rate (9279-1) 18 /min Heart Rate (8867-4) 66 /min Blood Pressure Systolic (8480-6) 136 mm[Hg] Blood Pressure Diastolic (8462-4) 69 mm[Hg] 04/29/2024 09:44 AM Blood Pressure Systolic (8480-6) 1 27 mm[Hg] Blood Pressure Diastolic (8462-4) 58 mm[Hg] 04/28/2024 07:34 PM Temperature (8310-5) 98.3 [degF] Oxygen Saturation (46102-0) 97 % Respiratory Rate (9279-1) 23 /min Heart Rate (8867-4) 67 /min 04/28/2024 07:06 PM Blood Pressure Systolic (8480-6) 1 20 mm[Hg] Blood Pressure Diastolic (8462-4) 75 mm[Hg] 04/29/2024 07:24 PM Temperature (8310-5) 98 [degF] Oxygen Saturation (05968-9) 93 % Respiratory Rate (9279-1) 20 /min Heart Rate (8867-4) 69 /min Blood Pressure Systolic (8480-6) 136 mm[Hg] Blood Pressure Diastolic (8462-4) 75 mm[Hg] 04/29/2024 07:14 PM Blood Pressure Systolic (8480-6) 1 37 mm[Hg] Blood Pressure Diastolic (8462-4) 63 mm[Hg] 04/30/2024 10:21 PM Temperature (8310-5) 98 [degF] Oxygen Saturation (69160-3) 96 % Respiratory Rate (9279-1) 16 /min Heart Rate (8867-4) 70 /min 04/30/2024 09:42 PM Blood Pressure Systolic (8480-6) 1 30 mm[Hg] Blood Pressure Diastolic (8462-4) 78 mm[Hg] 04/30/2024 06:27 PM Temperature (8310-5) 97.3 [degF] Oxygen Saturation (41804-3) 91 % Respiratory Rate (9279-1) 20 /min Heart Rate (8867-4) 73 /min Blood Pressure Systolic (8480-6) 150 mm[Hg] Blood Pressure Diastolic (8462-4) 86 mm[Hg] 04/30/2024 08:39 AM Blood Pressure Systolic (8480-6) 1 50 mm[Hg] Blood Pressure Diastolic (8462-4) 86 mm[Hg] 05/01/2024 10:44 AM Temperature (8310-5) 98.7 [degF] Oxygen Saturation (26452-1) 99 % Respiratory Rate (9279-1) 16 /min Heart Rate (8867-4) 51 /min Blood Pressure Systolic (8480-6) 105 mm[Hg] Blood Pressure Diastolic (8462-4) 59 mm[Hg] 05/01/2024 07:27 AM Blood Pressure Systolic (8480-6) 1 26 mm[Hg] Blood Pressure Diastolic (8462-4) 70 mm[Hg] 05/02/2024 08:49 AM Temperature (8310-5) 97.3 [degF] Oxygen Saturation (71076-3) 98 % Respiratory Rate (9279-1) 16 /min Heart Rate (8867-4) 64 /min Blood Pressure Systolic (8480-6) 127 mm[Hg] Blood Pressure Diastolic (8462-4) 79 mm[Hg] 05/02/2024 07:14 AM Blood Pressure Systolic (8480-6) 1 05 mm[Hg] Blood Pressure Diastolic (8462-4) 66 mm[Hg] 05/01/2024 07:57 PM Temperature (8310-5) 97 [degF] Oxygen Saturation (97264-0) 98 % Respiratory Rate (9279-1) 18 /min Heart Rate (8867-4) 60 /min 05/01/2024 07:03 PM Blood Pressure Systolic (8480-6) 9 5 mm[Hg] Blood Pressure Diastolic (8462-4) 65 mm[Hg] 05/03/2024 02:25 PM Temperature (8310-5) 97.4 [degF] Oxygen Saturation (79479-7) 96 % Respiratory Rate (9279-1) 20 /min Heart Rate (8867-4) 66 /min Blood Pressure Systolic (8480-6) 104 mm[Hg] Blood Pressure Diastolic (8462-4) 64 mm[Hg] 05/03/2024 12:34 PM Body Weight (82730-6) 130.3 [lb_av ] Body Mass Index (98600-1) 25.44 kg/m2 05/03/2024 07:37 AM Blood Pressure Systolic (8480-6) 1 26 mm[Hg] Blood Pressure Diastolic (8462-4) 65 mm[Hg] 05/02/2024 07:21 PM Temperature (8310-5) 97.2 [degF] Oxygen Saturation (66671-3) 92 % Respiratory Rate (9279-1) 18 /min Heart Rate (8867-4) 68 /min 05/02/2024 06:58 PM Blood Pressure Systolic (8480-6) 1 03 mm[Hg] Blood Pressure Diastolic (8462-4) 62 mm[Hg] 05/04/2024 07:52 AM Temperature (8310-5) 97.8 [degF] Oxygen Saturation (55467-2) 94 % Respiratory Rate (9279-1) 20 /min Heart Rate (8867-4) 67 /min Blood Pressure Systolic (8480-6) 138 mm[Hg] Blood Pressure Diastolic (8462-4) 80 mm[Hg] 05/03/2024 06:53 PM Temperature (8310-5) 97.5 [degF] Oxygen Saturation (60515-8) 97 % Respiratory Rate (9279-1) 18 /min Heart Rate (8867-4) 64 /min 05/03/2024 06:39 PM Blood Pressure Systolic (8480-6) 1 08 mm[Hg] Blood Pressure Diastolic (8462-4) 64 mm[Hg] 05/05/2024 09:10 AM Blood Pressure Systolic (8480-6) 1 53 mm[Hg] Blood Pressure Diastolic (8462-4) 84 mm[Hg] 05/05/2024 09:11 AM Temperature (8310-5) 97.5 [degF] Oxygen Saturation (96463-3) 94 % Respiratory Rate (9279-1) 18 /min Heart Rate (8867-4) 61 /min 05/04/2024 08:46 PM Temperature (8310-5) 97.6 [degF] Oxygen Saturation (51425-5) 96 % Respiratory Rate (9279-1) 20 /min Heart Rate (8867-4) 68 /min Blood Pressure Systolic (8480-6) 132 mm[Hg] Blood Pressure Diastolic (8462-4) 62 mm[Hg] 05/04/2024 08:27 PM Blood Pressure Systolic (8480-6) 1 30 mm[Hg] Blood Pressure Diastolic (8462-4) 70 mm[Hg] 05/06/2024 08:52 AM Temperature (8310-5) 97.8 [degF] Oxygen Saturation (17701-4) 100 % Respiratory Rate (9279-1) 20 /min [...] PM Temperature (8310-5) 97.8 [degF] Oxygen Saturation (04899-3) 97 % Respiratory Rate (9279-1) 20 /min [...] AM Temperature (8310-5) 97 [degF] Oxygen Saturation (85184-9) 93 % Respiratory Rate (9279-1) 16 /min Heart Rate (8867-4) 63 /min 05/07/2024 09:09 AM Blood Pressure Systolic (8480-6) 1 02 mm[Hg] Blood Pressure Diastolic (8462-4) 57 mm[Hg] 05/08/2024 10:14 AM Temperature (8310-5) 98.1 [degF] Oxygen Saturation (52412-7) 94 % Respiratory Rate (9279-1) 16 /min Heart Rate (8867-4) 74 /min Blood Pressure Systolic (8480-6) 132 mm[Hg] Blood Pressure Diastolic (8462-4) 65 mm[Hg] 05/08/2024 07:27 AM Blood Pressure Systolic (8480-6) 1 11 mm[Hg] Blood Pressure Diastolic (8462-4) 70 mm[Hg] 05/09/2024 04:03 PM Temperature (8310-5) 98.4 [degF] Oxygen Saturation (05950-4) 98 % Respiratory Rate (9279-1) 18 /min Heart Rate (8867-4) 71 /min Blood Pressure Systolic (8480-6) 140 mm[Hg] Blood Pressure Diastolic (8462-4) 73 mm[Hg] 05/09/2024 07:19 PM Temperature (8310-5) 97 [degF] Oxygen Saturation (17366-1) 99 % Respiratory Rate (9279-1) 17 /min Heart Rate (8867-4) 64 /min 05/08/2024 07:46 PM Temperature (8310-5) 97.6 [degF] Oxygen Saturation (32927-8) 98 % Respiratory Rate (9279-1) 19 /min [...] AM Temperature (8310-5) 98 [degF] Oxygen Saturation (98716-4) 97 % Respiratory Rate (9279-1) 15 /min [...] AM Temperature (8310-5) 98.6 [degF] Oxygen Saturation (89757-8) 94 % Respiratory Rate (9279-1) 20 /min Heart Rate (8867-4) 84 /min Blood Pressure Systolic (8480-6) 165 mm[Hg] Blood Pressure Diastolic (8462-4) 77 mm[Hg] 05/10/2024 08:48 PM Temperature (8310-5) 98.1 [degF] Oxygen Saturation (26922-2) 99 % Respiratory Rate (9279-1) 16 /min Heart Rate (8867-4) 70 /min 05/12/2024 05:26 PM Temperature (8310-5) 98.2 [degF] Oxygen Saturation (67775-1) 98 % Respiratory Rate (9279-1) 16 /min Heart Rate (8867-4) 62 /min Blood Pressure Systolic (8480-6) 132 mm[Hg] Blood Pressure Diastolic (8462-4) 84 mm[Hg] 05/11/2024 07:16 PM Temperature (8310-5) 97.9 [degF] Oxygen Saturation (81924-5) 97 % Respiratory Rate (9279-1) 19 /min Heart Rate (8867-4) 80 /min 05/12/2024 11:00 PM Temperature (8310-5) 98.1 [degF] Oxygen Saturation (54029-9) 97 % Respiratory Rate (9279-1) 18 /min Heart Rate (8867-4) 63 /min Blood Pressure Systolic (8480-6) 128 mm[Hg] Blood Pressure Diastolic (8462-4) 75 mm[Hg] 05/12/2024 07:23 PM Blood Pressure Systolic (8480-6) 1 28 mm[Hg] Blood Pressure Diastolic (8462-4) 75 mm[Hg] 05/13/2024 09:38 AM Temperature (8310-5) 97.4 [degF] Oxygen Saturation (72528-5) 97 % Respiratory Rate (9279-1) 19 /min Heart Rate (8867-4) 60 /min Blood Pressure Systolic (8480-6) 147 mm[Hg] Blood Pressure Diastolic (8462-4) 77 mm[Hg] 05/13/2024 08:00 AM Blood Pressure Systolic (8480-6) 1 47 mm[Hg] Blood Pressure Diastolic (8462-4) 77 mm[Hg] 05/13/2024 09:44 PM Temperature (8310-5) 97.6 [degF] Oxygen Saturation (42867-4) 99 % Respiratory Rate (9279-1) 20 /min [...] PM Temperature (8310-5) 97.9 [degF] Oxygen Saturation (79188-2) 99 % Respiratory Rate (9279-1) 18 /min Heart Rate (8867-4) 61 /min Blood Pressure Systolic (8480-6) 140 mm[Hg] Blood Pressure Diastolic (8462-4) 81 mm[Hg] 05/14/2024 01:22 PM Temperature (8310-5) 98 [degF] Respiratory Rate (9279-1) 18 /min Heart Rate (8867-4) 96 /min Blood Pressure Systolic (8480-6) 171 mm[Hg] Blood Pressure Diastolic (8462-4) 78 mm[Hg] 05/14/2024 01:25 PM Oxygen Saturation (69932-2) 97 % 05/14/2024 07:42 AM Blood Pressure Systolic (8480-6) 1 71 mm[Hg] Blood Pressure Diastolic (8462-4) 78 mm[Hg] 05/15/2024 08:43 AM Temperature (8310-5) 97.6 [degF] Oxygen Saturation (63074-3) 99 % Respiratory Rate (9279-1) 15 /min Heart Rate (8867-4) 71 /min Blood Pressure Systolic (8480-6) 142 mm[Hg] Blood Pressure Diastolic (8462-4) 81 mm[Hg] 05/15/2024 07:18 AM Blood Pressure Systolic (8480-6) 1 42 mm[Hg] Blood Pressure Diastolic (8462-4) 81 mm[Hg] 05/16/2024 06:42 PM Temperature (8310-5) 97.9 [degF] Oxygen Saturation (10907-4) 97 % Respiratory Rate (9279-1) 20 /min Heart Rate (8867-4) 68 /min 05/16/2024 06:34 PM Blood Pressure Systolic (8480-6) 1 46 mm[Hg] Blood Pressure Diastolic (8462-4) 74 mm[Hg] 05/16/2024 08:19 AM Temperature (8310-5) 98.7 [degF] Oxygen Saturation (94533-5) 93 % Respiratory Rate (9279-1) 18 /min Heart Rate (8867-4) 60 /min 05/16/2024 07:22 AM Blood Pressure Systolic (8480-6) 1 65 mm[Hg] Blood Pressure Diastolic (8462-4) 76 mm[Hg] 05/15/2024 07:13 PM Temperature (8310-5) 98 [degF] Oxygen Saturation (85596-2) 99 % Respiratory Rate (9279-1) 15 /min Heart Rate (8867-4) 66 /min 05/15/2024 06:52 PM Blood Pressure Systolic (8480-6) 1 26 mm[Hg] Blood Pressure Diastolic (8462-4) 82 mm[Hg] 05/17/2024 09:37 AM Temperature (8310-5) 96.9 [degF] Oxygen Saturation (76448-5) 100 % Respiratory Rate (9279-1) 16 /min Heart Rate (8867-4) 52 /min Blood Pressure Systolic (8480-6) 136 mm[Hg] Blood Pressure Diastolic (8462-4) 87 mm[Hg] 05/17/2024 07:28 PM Temperature (8310-5) 98.1 [degF] Oxygen Saturation (58811-2) 94 % Respiratory Rate (9279-1) 15 /min Heart Rate (8867-4) 73 /min 05/17/2024 06:44 PM Blood Pressure Systolic (8480-6) 1 20 mm[Hg] Blood Pressure Diastolic (8462-4) 70 mm[Hg] 05/18/2024 09:10 AM Temperature (8310-5) 98.3 [degF] Oxygen Saturation (97588-4) 95 % Respiratory Rate (9279-1) 20 /min Heart Rate (8867-4) 80 /min Blood Pressure Systolic (8480-6) 139 mm[Hg] Blood Pressure Diastolic (8462-4) 82 mm[Hg] 05/18/2024 09:09 AM Blood Pressure Systolic (8480-6) 1 35 mm[Hg] Blood Pressure Diastolic (8462-4) 90 mm[Hg] 05/19/2024 09:39 PM Temperature (8310-5) 98.2 [degF] Oxygen Saturation (65252-4) 97 % Respiratory Rate (9279-1) 20 /min Heart Rate (8867-4) 61 /min Blood Pressure Systolic (8480-6) 143 mm[Hg] Blood Pressure Diastolic (8462-4) 65 mm[Hg] 05/19/2024 07:58 PM Blood Pressure Systolic (8480-6) 1 43 mm[Hg] Blood Pressure Diastolic (8462-4) 65 mm[Hg] 05/19/2024 08:59 AM Temperature (8310-5) 99 [degF] Oxygen Saturation (64425-7) 97 % Respiratory Rate (9279-1) 18 /min Heart Rate (8867-4) 63 /min Blood Pressure Systolic (8480-6) 156 mm[Hg] Blood Pressure Diastolic (8462-4) 74 mm[Hg] 05/19/2024 08:41 AM Blood Pressure Systolic (8480-6) 1 56 mm[Hg] Blood Pressure Diastolic (8462-4) 74 mm[Hg] 05/18/2024 08:10 PM Temperature (8310-5) 98.1 [degF] Oxygen Saturation (82211-2) 92 % Respiratory Rate (9279-1) 15 /min Heart Rate (8867-4) 66 /min Blood Pressure Systolic (8480-6) 144 mm[Hg] Blood Pressure Diastolic (8462-4) 68 mm[Hg] 05/18/2024 08:09 PM Blood Pressure Systolic (8480-6) 1 44 mm[Hg] Blood Pressure Diastolic (8462-4) 68 mm[Hg] 05/20/2024 08:43 PM Temperature (8310-5) 97.9 [degF] Oxygen Saturation (11774-9) 95 % Respiratory Rate (9279-1) 20 /min Heart Rate (8867-4) 62 /min Blood Pressure Systolic (8480-6) 144 mm[Hg] Blood Pressure Diastolic (8462-4) 86 mm[Hg] 05/20/2024 07:45 PM Blood Pressure Systolic (8480-6) 1 44 mm[Hg] Blood Pressure Diastolic (8462-4) 86 mm[Hg] 05/20/2024 09:47 AM Temperature (8310-5) 97.2 [degF] Oxygen Saturation (56719-0) 94 % Respiratory Rate (9279-1) 18 /min Heart Rate (8867-4) 62 /min Blood Pressure Systolic (8480-6) 162 mm[Hg] Blood Pressure Diastolic (8462-4) 74 mm[Hg] 05/21/2024 09:33 AM Temperature (8310-5) 97 [degF] Oxygen Saturation (07163-5) 96 % Respiratory Rate (9279-1) 18 /min Heart Rate (8867-4) 69 /min 05/21/2024 08:14 AM Blood Pressure Systolic (8480-6) 1 63 mm[Hg] Blood Pressure Diastolic (8462-4) 93 mm[Hg] 05/21/2024 07:44 PM Temperature (8310-5) 97.9 [degF] Oxygen Saturation (71738-6) 96 % Respiratory Rate (9279-1) 19 /min Heart Rate (8867-4) 64 /min Blood Pressure Systolic (8480-6) 146 mm[Hg] Blood Pressure Diastolic (8462-4) 82 mm[Hg] 05/21/2024 07:34 PM Blood Pressure Systolic (8480-6) 1 46 mm[Hg] Blood Pressure Diastolic (8462-4) 82 mm[Hg] 05/22/2024 08:06 PM Temperature (8310-5) 97.1 [degF] Oxygen Saturation (80386-7) 97 % Respiratory Rate (9279-1) 23 /min Heart Rate (8867-4) 68 /min Blood Pressure Systolic (8480-6) 157 mm[Hg] Blood Pressure Diastolic (8462-4) 70 mm[Hg] 05/22/2024 07:34 PM Blood Pressure Systolic (8480-6) 1 57 mm[Hg] Blood Pressure Diastolic (8462-4) 70 mm[Hg] 05/22/2024 08:02 AM Temperature (8310-5) 98.7 [degF] Oxygen Saturation (05470-5) 90 % Respiratory Rate (9279-1) 19 /min Heart Rate (8867-4) 67 /min Blood Pressure Systolic (8480-6) 153 mm[Hg] Blood Pressure Diastolic (8462-4) 79 mm[Hg] 05/22/2024 07:42 AM Blood Pressure Systolic (8480-6) 1 57 mm[Hg] Blood Pressure Diastolic (8462-4) 82 mm[Hg] 05/23/2024 04:09 PM Temperature (8310-5) 97.5 [degF] Oxygen Saturation (96236-1) 99 % Respiratory Rate (9279-1) 15 /min Heart Rate (8867-4) 69 /min 05/23/2024 07:14 AM Blood Pressure Systolic (8480-6) 1 57 mm[Hg] Blood Pressure Diastolic (8462-4) 89 mm[Hg] 05/24/2024 08:30 AM Temperature (8310-5) 97.8 [degF] Oxygen Saturation (62716-2) 98 % Respiratory Rate (9279-1) 17 /min Heart Rate (8867-4) 54 /min Blood Pressure Systolic (8480-6) 127 mm[Hg] Blood Pressure Diastolic (8462-4) 52 mm[Hg] 05/24/2024 07:36 AM Blood Pressure Systolic (8480-6) 1 40 mm[Hg] Blood Pressure Diastolic (8462-4) 78 mm[Hg] 05/23/2024 08:21 PM Temperature (8310-5) 98 [degF] Oxygen Saturation (93162-8) 99 % Respiratory Rate (9279-1) 20 /min Heart Rate (8867-4) 65 /min 05/23/2024 06:51 PM Blood Pressure Systolic (8480-6) 1 36 mm[Hg] Blood Pressure Diastolic (8462-4) 71 mm[Hg] 05/25/2024 09:50 AM Oxygen Saturation (78216-0) 94 % Respiratory Rate (9279-1) 18 /min 05/25/2024 09:49 AM Temperature (8310-5) 98.1 [degF] Heart Rate (8867-4) 72 /min 05/25/2024 09:48 AM Blood Pressure Systolic (8480-6) 1 27 mm[Hg] Blood Pressure Diastolic (8462-4) 79 mm[Hg] 05/24/2024 08:01 PM Temperature (8310-5) 98.7 [degF] Oxygen Saturation (86709-8) 98 % Respiratory Rate (9279-1) 20 /min Heart Rate (8867-4) 55 /min 05/24/2024 06:45 PM Blood Pressure Systolic (8480-6) 1 12 mm[Hg] Blood Pressure Diastolic (8462-4) 70 mm[Hg] 05/25/2024 08:30 PM Temperature (8310-5) 97.9 [degF] Oxygen Saturation (47775-6) 97 % Respiratory Rate (9279-1) 20 /min Heart Rate (8867-4) 74 /min 05/26/2024 08:18 AM Temperature (8310-5) 98 [degF] Oxygen Saturation (56645-4) 96 % Respiratory Rate (9279-1) 20 /min [...] AM Temperature (8310-5) 97.3 [degF] Oxygen Saturation (89833-1) 93 % Respiratory Rate (9279-1) 18 /min Heart Rate (8867-4) 57 /min Blood Pressure Systolic (8480-6) 160 mm[Hg] Blood Pressure Diastolic (8462-4) 89 mm[Hg] 05/26/2024 08:29 PM Blood Pressure Systolic (8480-6) 1 12 mm[Hg] Blood Pressure Diastolic (8462-4) 57 mm[Hg] 05/27/2024 12:33 AM Temperature (8310-5) 98.7 [degF] Oxygen Saturation (74537-3) 97 % Respiratory Rate (9279-1) 19 /min Heart Rate (8867-4) 75 /min Blood Pressure Systolic (8480-6) 112 mm[Hg] Blood Pressure Diastolic (8462-4) 57 mm[Hg] 05/28/2024 12:03 AM Temperature (8310-5) 98.8 [degF] Oxygen Saturation (92040-8) 95 % Respiratory Rate (9279-1) 19 /min Heart Rate (8867-4) 62 /min Blood Pressure Systolic (8480-6) 143 mm[Hg] Blood Pressure Diastolic (8462-4) 81 mm[Hg] 05/27/2024 08:24 PM Blood Pressure Systolic (8480-6) 1 43 mm[Hg] Blood Pressure Diastolic (8462-4) 81 mm[Hg] 05/28/2024 06:39 PM Temperature (8310-5) 99.1 [degF] Oxygen Saturation (31985-9) 94 % Respiratory Rate (9279-1) 19 /min Heart Rate (8867-4) 62 /min Blood Pressure Systolic (8480-6) 134 mm[Hg] Blood Pressure Diastolic (8462-4) 70 mm[Hg] 05/28/2024 10:01 PM Temperature (8310-5) 98.1 [degF] Oxygen Saturation (58111-9) 97 % Respiratory Rate (9279-1) 19 /min [...] PM Temperature (8310-5) 99.3 [degF] Oxygen Saturation (25377-4) 94 % Respiratory Rate (9279-1) 17 /min Heart Rate (8867-4) 61 /min Blood Pressure Systolic (8480-6) 153 mm[Hg] Blood Pressure Diastolic (8462-4) 89 mm[Hg] 05/30/2024 06:39 PM Temperature (8310-5) 99.7 [degF] Oxygen Saturation (31713-0) 94 % Respiratory Rate (9279-1) 16 /min Heart Rate (8867-4) 54 /min Blood Pressure Systolic (8480-6) 137 mm[Hg] Blood Pressure Diastolic (8462-4) 73 mm[Hg] 05/29/2024 07:15 PM Blood Pressure Systolic (8480-6) 1 22 mm[Hg] Blood Pressure Diastolic (8462-4) 72 mm[Hg] 05/29/2024 09:27 PM Oxygen Saturation (51667-5) 96 % Respiratory Rate (9279-1) 16 /min Heart Rate (8867-4) 67 /min 05/30/2024 12:38 PM Blood Pressure Systolic (8480-6) 1 45 mm[Hg] Blood Pressure Diastolic (8462-4) 77 mm[Hg] 05/29/2024 09:26 PM Temperature (8310-5) 96.8 [degF] 05/31/2024 11:02 AM Blood Pressure Systolic (8480-6) 1 09 mm[Hg] Blood Pressure Diastolic (8462-4) 63 mm[Hg] 05/30/2024 09:14 PM Temperature (8310-5) 97.8 [degF] Oxygen Saturation (05249-4) 100 % Respiratory Rate (9279-1) 19 /min Heart Rate (8867-4) 73 /min Blood Pressure Systolic (8480-6) 135 mm[Hg] Blood Pressure Diastolic (8462-4) 83 mm[Hg] 05/30/2024 08:42 PM Blood Pressure Systolic (8480-6) 1 35 mm[Hg] Blood Pressure Diastolic (8462-4) 83 mm[Hg] 05/31/2024 02:37 PM Temperature (8310-5) 97.7 [degF] Oxygen Saturation (13797-4) 98 % Respiratory Rate (9279-1) 18 /min Heart Rate (8867-4) 58 /min Blood Pressure Systolic (8480-6) 109 mm[Hg] Blood Pressure Diastolic (8462-4) 63 mm[Hg] 06/01/2024 05:06 PM Temperature (8310-5) 97.7 [degF] Oxygen Saturation (79364-0) 94 % Respiratory Rate (9279-1) 18 /min Heart Rate (8867-4) 69 /min Blood Pressure Systolic (8480-6) 152 mm[Hg] Blood Pressure Diastolic (8462-4) 70 mm[Hg] 06/01/2024 09:06 AM Blood Pressure Systolic (8480-6) 1 52 mm[Hg] Blood Pressure Diastolic (8462-4) 70 mm[Hg] 05/31/2024 08:25 PM Temperature (8310-5) 99 [degF] Oxygen Saturation (87103-3) 99 % Respiratory Rate (9279-1) 14 /min Heart Rate (8867-4) 89 /min 05/31/2024 07:13 PM Blood Pressure Systolic (8480-6) 1 58 mm[Hg] Blood Pressure Diastolic (8462-4) 89 mm[Hg] 06/02/2024 01:07 PM Temperature (8310-5) 97 [degF] Oxygen Saturation (34199-1) 97 % Respiratory Rate (9279-1) 15 /min Heart Rate (8867-4) 61 /min Blood Pressure Systolic (8480-6) 130 mm[Hg] Blood Pressure Diastolic (8462-4) 77 mm[Hg] 06/02/2024 12:09 AM Temperature (8310-5) 97 [degF] Oxygen Saturation (22628-1) 95 % Respiratory Rate (9279-1) 18 /min [...] PM Temperature (8310-5) 98.2 [degF] Oxygen Saturation (23121-9) 94 % Respiratory Rate (9279-1) 16 /min Heart Rate (8867-4) 71 /min Blood Pressure Systolic (8480-6) 126 mm[Hg] Blood Pressure Diastolic (8462-4) 74 mm[Hg] 06/03/2024 08:57 AM Blood Pressure Systolic (8480-6) 1 34 mm[Hg] Blood Pressure Diastolic (8462-4) 70 mm[Hg] 06/03/2024 02:25 PM Temperature (8310-5) 98.7 [degF] Oxygen Saturation (89541-5) 95 % Respiratory Rate (9279-1) 18 /min Heart Rate (8867-4) 58 /min Blood Pressure Systolic (8480-6) 104 mm[Hg] Blood Pressure Diastolic (8462-4) 70 mm[Hg] Body Weight (56193-4) 108 [lb_av] Body Mass Index (75814-1) 21.09 kg/m2 06/02/2024 08:08 PM Blood Pressure Systolic (8480-6) 1 26 mm[Hg] Blood Pressure Diastolic (8462-4) 74 mm[Hg] 06/04/2024 08:33 AM Temperature (8310-5) 97.8 [degF] Oxygen Saturation (36400-1) 93 % Respiratory Rate (9279-1) 20 /min Heart Rate (8867-4) 58 /min Blood Pressure Systolic (8480-6) 107 mm[Hg] Blood Pressure Diastolic (8462-4) 77 mm[Hg] 06/03/2024 08:23 PM Temperature (8310-5) 98.2 [degF] Oxygen Saturation (97323-3) 96 % Respiratory Rate (9279-1) 18 /min Heart Rate (8867-4) 79 /min Blood Pressure Systolic (8480-6) 131 mm[Hg] Blood Pressure Diastolic (8462-4) 62 mm[Hg] 06/03/2024 07:35 PM Blood Pressure Systolic (8480-6) 1 31 mm[Hg] Blood Pressure Diastolic (8462-4) 62 mm[Hg] 06/04/2024 11:15 PM Temperature (8310-5) 98 [degF] Oxygen Saturation (33060-3) 98 % Respiratory Rate (9279-1) 23 /min Heart Rate (8867-4) 67 /min Blood Pressure Systolic (8480-6) 132 mm[Hg] Blood Pressure Diastolic (8462-4) 65 mm[Hg] 06/04/2024 08:15 PM Blood Pressure Systolic (8480-6) 1 32 mm[Hg] Blood Pressure Diastolic (8462-4) 65 mm[Hg] 06/05/2024 09:12 PM Temperature (8310-5) 98.2 [degF] Oxygen Saturation (72705-2) 98 % Respiratory Rate (9279-1) 25 /min Heart Rate (8867-4) 65 /min 06/05/2024 10:42 AM Temperature (8310-5) 97.7 [degF] Oxygen Saturation (40608-9) 94 % Respiratory Rate (9279-1) 16 /min [...] PM Temperature (8310-5) 97.8 [degF] Oxygen Saturation (24225-9) 98 % Respiratory Rate (9279-1) 20 /min Heart Rate (8867-4) 56 /min Blood Pressure Systolic (8480-6) 107 mm[Hg] Blood Pressure Diastolic (8462-4) 63 mm[Hg] 06/06/2024 07:39 AM Blood Pressure Systolic (8480-6) 1 37 mm[Hg] Blood Pressure Diastolic (8462-4) 89 mm[Hg] 06/06/2024 04:54 PM Body Weight (75028-6) 107.2 [lb_av ] Body Mass Index (83687-5) 20.93 kg/m2 06/06/2024 06:58 PM Blood Pressure Systolic (8480-6) 1 44 mm[Hg] Blood Pressure Diastolic (8462-4) 78 mm[Hg] 06/07/2024 05:17 PM Temperature (8310-5) 98.3 [degF] Oxygen Saturation (76749-5) 98 % Respiratory Rate (9279-1) 17 /min Heart Rate (8867-4) 56 /min Blood Pressure Systolic (8480-6) 127 mm[Hg] Blood Pressure Diastolic (8462-4) 71 mm[Hg] 06/07/2024 05:18 PM Body Weight (16412-7) 108.6 [lb_av ] Body Mass Index (57832-5) 21.21 kg/m2 06/06/2024 08:25 PM Temperature (8310-5) 96.9 [degF] Oxygen Saturation (23277-5) 99 % Respiratory Rate (9279-1) 18 /min Heart Rate (8867-4) 60 /min 06/07/2024 07:30 AM Blood Pressure Systolic (8480-6) 1 27 mm[Hg] Blood Pressure Diastolic (8462-4) 71 mm[Hg] 06/08/2024 03:32 PM Body Weight (79342-4) 108.8 [lb_av ] Body Mass Index (02429-2) 21.25 kg/m2 06/08/2024 03:29 PM Temperature (8310-5) 97.4 [degF] Oxygen Saturation (91329-4) 98 % Respiratory Rate (9279-1) 18 /min Heart Rate (8867-4) 55 /min Blood Pressure Systolic (8480-6) 122 mm[Hg] Blood Pressure Diastolic (8462-4) 74 mm[Hg] 06/08/2024 07:49 AM Blood Pressure Systolic (8480-6) 1 29 mm[Hg] Blood Pressure Diastolic (8462-4) 72 mm[Hg] 06/07/2024 06:55 PM Temperature (8310-5) 98.3 [degF] Oxygen Saturation (70059-3) 98 % Respiratory Rate (9279-1) 20 /min Heart Rate (8867-4) 63 /min 06/07/2024 06:43 PM Blood Pressure Systolic (8480-6) 1 19 mm[Hg] Blood Pressure Diastolic (8462-4) 67 mm[Hg] 06/09/2024 05:41 PM Temperature (8310-5) 98.7 [degF] Oxygen Saturation (84592-9) 100 % Respiratory Rate (9279-1) 17 /min Heart Rate (8867-4) 58 /min Blood Pressure Systolic (8480-6) 15 mm[Hg] Blood Pressure Diastolic (8462-4) 69 mm[Hg] 06/09/2024 03:00 PM Body Weight (88631-8) 107.4 [lb_av ] Body Mass Index (40613-2) 20.97 kg/m2 06/09/2024 07:08 AM Blood Pressure Systolic (8480-6) 1 34 mm[Hg] Blood Pressure Diastolic (8462-4) 76 mm[Hg] 06/08/2024 07:51 PM Temperature (8310-5) 98 [degF] Oxygen Saturation (17374-7) 96 % Respiratory Rate (9279-1) 21 /min Heart Rate (8867-4) 60 /min Blood Pressure Systolic (8480-6) 123 mm[Hg] Blood Pressure Diastolic (8462-4) 57 mm[Hg] 06/08/2024 06:41 PM Blood Pressure Systolic (8480-6) 1 30 mm[Hg] Blood Pressure Diastolic (8462-4) 70 mm[Hg] 06/10/2024 11:46 AM Temperature (8310-5) 99.2 [degF] Oxygen Saturation (84654-3) 96 % Respiratory Rate (9279-1) 19 /min Heart Rate (8867-4) 64 /min Blood Pressure Systolic (8480-6) 129 mm[Hg] Blood Pressure Diastolic (8462-4) 72 mm[Hg] 06/10/2024 08:55 AM Blood Pressure Systolic (8480-6) 1 29 mm[Hg] Blood Pressure Diastolic (8462-4) 72 mm[Hg] 06/09/2024 08:41 PM Temperature (8310-5) 98.1 [degF] Oxygen Saturation (29153-9) 96 % Respiratory Rate (9279-1) 21 /min Heart Rate (8867-4) 79 /min 06/09/2024 08:01 PM Blood Pressure Systolic (8480-6) 1 29 mm[Hg] Blood Pressure Diastolic (8462-4) 78 mm[Hg] 06/10/2024 08:54 PM Temperature (8310-5) 97.8 [degF] Oxygen Saturation (36373-0) 97 % Respiratory Rate (9279-1) 21 /min Heart Rate (8867-4) 64 /min Blood Pressure Systolic (8480-6) 117 mm[Hg] Blood Pressure Diastolic (8462-4) 77 mm[Hg] 06/10/2024 08:30 PM Blood Pressure Systolic (8480-6) 1 17 mm[Hg] Blood Pressure Diastolic (8462-4) 77 mm[Hg] 06/11/2024 07:42 PM Temperature (8310-5) 98 [degF] Oxygen Saturation (16692-2) 99 % Respiratory Rate (9279-1) 18 /min Heart Rate (8867-4) 58 /min 06/11/2024 06:57 PM Blood Pressure Systolic (8480-6) 9 7 mm[Hg] Blood Pressure Diastolic (8462-4) 58 mm[Hg] 06/11/2024 10:07 AM Temperature (8310-5) 96.7 [degF] Oxygen Saturation (38476-8) 98 % Respiratory Rate (9279-1) 19 /min Heart Rate (8867-4) 41 /min 06/11/2024 09:37 AM Blood Pressure Systolic (8480-6) 9 6 mm[Hg] Blood Pressure Diastolic (8462-4) 49 mm[Hg] 06/12/2024 07:02 AM Blood Pressure Systolic (8480-6) 1 43 mm[Hg] Blood Pressure Diastolic (8462-4) 77 mm[Hg] 06/12/2024 10:22 AM Temperature (8310-5) 98.5 [degF] Oxygen Saturation (88724-1) 93 % Respiratory Rate (9279-1) 17 /min Heart Rate (8867-4) 65 /min Blood Pressure Systolic (8480-6) 107 mm[Hg] Blood Pressure Diastolic (8462-4) 66 mm[Hg] 06/12/2024 08:21 PM Temperature (8310-5) 97.7 [degF] Oxygen Saturation (22387-3) 98 % Respiratory Rate (9279-1) 18 /min Heart Rate (8867-4) 62 /min Blood Pressure Systolic (8480-6) 144 mm[Hg] Blood Pressure Diastolic (8462-4) 82 mm[Hg] 06/13/2024 12:13 PM Oxygen Saturation (35218-7) 92 % 06/13/2024 12:12 PM Temperature (8310-5) 97.8 [degF] Respiratory Rate (9279-1) 18 /min Heart Rate (8867-4) 66 /min 06/13/2024 06:38 PM Blood Pressure Systolic (8480-6) 1 20 mm[Hg] Blood Pressure Diastolic (8462-4) 74 mm[Hg] 06/13/2024 07:08 AM Blood Pressure Systolic (8480-6) 1 27 mm[Hg] Blood Pressure Diastolic (8462-4) 60 mm[Hg] 06/13/2024 08:59 PM Temperature (8310-5) 97.7 [degF] Oxygen Saturation (58958-1) 96 % Respiratory Rate (9279-1) 20 /min Heart Rate (8867-4) 74 /min 06/14/2024 07:31 PM Temperature (8310-5) 97.4 [degF] Oxygen Saturation (24776-7) 97 % Respiratory Rate (9279-1) 20 /min Heart Rate (8867-4) 62 /min 06/14/2024 06:48 PM Blood Pressure Systolic (8480-6) 1 22 mm[Hg] Blood Pressure Diastolic (8462-4) 64 mm[Hg] 06/14/2024 08:25 AM Temperature (8310-5) 98 [degF] Oxygen Saturation (78672-2) 95 % Respiratory Rate (9279-1) 16 /min Heart Rate (8867-4) 57 /min Blood Pressure Systolic (8480-6) 110 mm[Hg] Blood Pressure Diastolic (8462-4) 66 mm[Hg] 06/15/2024 07:21 PM Oxygen Saturation (71966-2) 99 % 06/15/2024 07:20 PM Temperature (8310-5) 97.6 [degF] Respiratory Rate (9279-1) 18 /min Heart Rate (8867-4) 58 /min Blood Pressure Systolic (8480-6) 136 mm[Hg] Blood Pressure Diastolic (8462-4) 60 mm[Hg] 06/15/2024 09:44 AM Temperature (8310-5) 97.8 [degF] Oxygen Saturation (62692-5) 98 % Respiratory Rate (9279-1) 2 /min Heart Rate (8867-4) 76 /min Blood Pressure Systolic (8480-6) 132 mm[Hg] Blood Pressure Diastolic (8462-4) 76 mm[Hg] 06/15/2024 08:36 AM Blood Pressure Systolic (8480-6) 1 32 mm[Hg] Blood Pressure Diastolic (8462-4) 76 mm[Hg] 06/16/2024 08:24 AM Temperature (8310-5) 97.6 [degF] Oxygen Saturation (33712-1) 90 % Respiratory Rate (9279-1) 19 /min Heart Rate (8867-4) 66 /min Blood Pressure Systolic (8480-6) 151 mm[Hg] Blood Pressure Diastolic (8462-4) 73 mm[Hg] 06/16/2024 08:48 PM Temperature (8310-5) 98.1 [degF] Oxygen Saturation (68553-7) 93 % Respiratory Rate (9279-1) 17 /min [...] AM Temperature (8310-5) 97.6 [degF] Oxygen Saturation (16543-8) 99 % Respiratory Rate (9279-1) 18 /min [...] PM Temperature (8310-5) 98.3 [degF] Oxygen Saturation (59986-4) 96 % Respiratory Rate (9279-1) 21 /min Heart Rate (8867-4) 68 /min Blood Pressure Systolic (8480-6) 108 mm[Hg] Blood Pressure Diastolic (8462-4) 56 mm[Hg] 06/18/2024 09:46 PM Temperature (8310-5) 98.5 [degF] Oxygen Saturation (58006-1) 97 % Respiratory Rate (9279-1) 23 /min Heart Rate (8867-4) 65 /min Blood Pressure Systolic (8480-6) 140 mm[Hg] Blood Pressure Diastolic (8462-4) 81 mm[Hg] 06/18/2024 07:41 PM Blood Pressure Systolic (8480-6) 1 40 mm[Hg] Blood Pressure Diastolic (8462-4) 81 mm[Hg] 06/18/2024 05:45 PM Temperature (8310-5) 98.7 [degF] Oxygen Saturation (28365-1) 98 % Respiratory Rate (9279-1) 17 /min Heart Rate (8867-4) 72 /min 06/19/2024 07:33 PM Temperature (8310-5) 97.1 [degF] Oxygen Saturation (82480-5) 97 % Respiratory Rate (9279-1) 14 /min Heart Rate (8867-4) 63 /min Blood Pressure Systolic (8480-6) 110 mm[Hg] Blood Pressure Diastolic (8462-4) 54 mm[Hg] 06/19/2024 08:40 AM Temperature (8310-5) 97.8 [degF] Oxygen Saturation (36043-7) 96 % Respiratory Rate (9279-1) 18 /min Heart Rate (8867-4) 62 /min Blood Pressure Systolic (8480-6) 127 mm[Hg] Blood Pressure Diastolic (8462-4) 76 mm[Hg] 06/19/2024 07:37 AM Blood Pressure Systolic (8480-6) 1 29 mm[Hg] Blood Pressure Diastolic (8462-4) 70 mm[Hg] 06/21/2024 09:56 AM Temperature (8310-5) 97.7 [degF] Oxygen Saturation (21829-1) 95 % Respiratory Rate (9279-1) 16 /min Heart Rate (8867-4) 63 /min Blood Pressure Systolic (8480-6) 125 mm[Hg] Blood Pressure Diastolic (8462-4) 82 mm[Hg] 06/21/2024 09:55 AM Oxygen Saturation (95011-5) 95 % 06/21/2024 08:07 AM Blood Pressure Systolic (8480-6) 1 25 mm[Hg] Blood Pressure Diastolic (8462-4) 82 mm[Hg] 06/20/2024 07:28 PM Temperature (8310-5) 97.7 [degF] Respiratory Rate (9279-1) 18 /min Heart Rate (8867-4) 71 /min Blood Pressure Systolic (8480-6) 100 mm[Hg] Blood Pressure Diastolic (8462-4) 60 mm[Hg] 06/20/2024 07:27 PM Oxygen Saturation (27533-2) 93 % 06/22/2024 12:41 PM Temperature (8310-5) 98.3 [degF] Oxygen Saturation (52283-2) 92 % Respiratory Rate (9279-1) 16 /min Heart Rate (8867-4) 72 /min 06/22/2024 09:55 AM Blood Pressure Systolic (8480-6) 1 27 mm[Hg] Blood Pressure Diastolic (8462-4) 81 mm[Hg] 06/21/2024 07:47 PM Temperature (8310-5) 98.2 [degF] Oxygen Saturation (13966-2) 94 % Respiratory Rate (9279-1) 18 /min Heart Rate (8867-4) 71 /min Blood Pressure Systolic (8480-6) 138 mm[Hg] Blood Pressure Diastolic (8462-4) 70 mm[Hg] 06/23/2024 09:31 AM Temperature (8310-5) 98.2 [degF] Oxygen Saturation (56949-7) 93 % Respiratory Rate (9279-1) 20 /min Heart Rate (8867-4) 79 /min 06/23/2024 09:30 AM Blood Pressure Systolic (8480-6) 9 2 mm[Hg] Blood Pressure Diastolic (8462-4) 50 mm[Hg] 06/22/2024 08:07 PM Temperature (8310-5) 98.3 [degF] Respiratory Rate (9279-1) 20 /min Heart Rate (8867-4) 70 /min 06/22/2024 08:06 PM Oxygen Saturation (82368-7) 90 % 06/22/2024 06:34 PM Blood Pressure Systolic (8480-6) 1 28 mm[Hg] Blood Pressure Diastolic (8462-4) 80 mm[Hg] 06/23/2024 11:44 PM Temperature (8310-5) 98.6 [degF] Oxygen Saturation (91458-4) 95 % Respiratory Rate (9279-1) 22 /min Heart Rate (8867-4) 80 /min 06/23/2024 08:02 PM Oxygen Saturation (29405-7) 95 % 06/23/2024 08:01 PM Blood Pressure Systolic (8480-6) 1 33 mm[Hg] Blood Pressure Diastolic (8462-4) 75 mm[Hg] 06/24/2024 07:35 PM Blood Pressure Systolic (8480-6) 1 23 mm[Hg] Blood Pressure Diastolic (8462-4) 81 mm[Hg] 06/24/2024 07:34 PM Oxygen Saturation (65890-4) 96 % 06/24/2024 05:14 PM Body Weight (48235-7) 106.8 [lb_av ] Body Mass Index (33876-0) 20.86 kg/m2 06/24/2024 12:41 PM Temperature (8310-5) 98.1 [degF] Oxygen Saturation (10220-5) 96 % Respiratory Rate (9279-1) 18 /min [...] PM Temperature (8310-5) 98.5 [degF] Oxygen Saturation (76925-7) 95 % Respiratory Rate (9279-1) 25 /min Heart Rate (8867-4) 90 /min Blood Pressure Systolic (8480-6) 103 mm[Hg] Blood Pressure Diastolic (8462-4) 49 mm[Hg] 2024 09:35 PM Temperature (8310-5) 99.2 [degF] Oxygen Saturation (20628-5) 97 % Respiratory Rate (9279-1) 16 /min Heart Rate (8867-4) 70 /min Blood Pressure Systolic (8480-6) 121 mm[Hg] Blood Pressure Diastolic (8462-4) 66 mm[Hg] 2024 09:34 PM Oxygen Saturation (78130-4) 97 % 2024 06:36 PM Blood Pressure Systolic (8480-6) 1 21 mm[Hg] Blood Pressure Diastolic (8462-4) 66 mm[Hg] 2024 02:44 PM Body Weight (03232-0) 105.8 [lb_av ] Body Mass Index (70997-1) 20.66 kg/m2 2024 02:41 PM Temperature (8310-5) 102 [degF] Oxygen Saturation (97644-6) 90 % Respiratory Rate (9279-1) 18 /min Heart Rate (8867-4) 81 /min 06/26/2024 07:18 PM Temperature (8310-5) 99 [degF] Oxygen Saturation (82404-2) 95 % Respiratory Rate (9279-1) 18 /min Heart Rate (8867-4) 68 /min Blood Pressure Systolic (8480-6) 117 mm[Hg] Blood Pressure Diastolic (8462-4) 65 mm[Hg] 06/26/2024 06:52 PM Blood Pressure Systolic (8480-6) 1 17 mm[Hg] Blood Pressure Diastolic (8462-4) 65 mm[Hg] 06/26/2024 08:58 AM Temperature (8310-5) 96.9 [degF] Oxygen Saturation (94822-3) 96 % Respiratory Rate (9279-1) 18 /min Heart Rate (8867-4) 63 /min Blood Pressure Systolic (8480-6) 150 mm[Hg] Blood Pressure Diastolic (8462-4) 85 mm[Hg] 06/27/2024 01:11 PM Temperature (8310-5) 97.8 [degF] Oxygen Saturation (94243-8) 94 % Respiratory Rate (9279-1) 19 /min Heart Rate (8867-4) 64 /min Blood Pressure Systolic (8480-6) 133 mm[Hg] Blood Pressure Diastolic (8462-4) 78 mm[Hg] 06/27/2024 01:06 PM Oxygen Saturation (01716-1) 94 % 06/27/2024 07:45 PM Temperature (8310-5) 96.9 [degF] Respiratory Rate (9279-1) 20 /min Heart Rate (8867-4) 83 /min 06/27/2024 07:44 PM Oxygen Saturation (63393-3) 95 % 06/27/2024 06:52 PM Blood Pressure Systolic (8480-6) 1 05 mm[Hg] Blood Pressure Diastolic (8462-4) 73 mm[Hg] 06/28/2024 07:56 PM Temperature (8310-5) 97.9 [degF] Oxygen Saturation (19123-1) 96 % Respiratory Rate (9279-1) 15 /min Heart Rate (8867-4) 62 /min 06/28/2024 06:42 PM Blood Pressure Systolic (8480-6) 1 28 mm[Hg] Blood Pressure Diastolic (8462-4) 70 mm[Hg] 06/28/2024 08:34 AM Temperature (8310-5) 97.4 [degF] Oxygen Saturation (17986-0) 94 % Respiratory Rate (9279-1) 16 /min Heart Rate (8867-4) 79 /min Blood Pressure Systolic (8480-6) 137 mm[Hg] Blood Pressure Diastolic (8462-4) 88 mm[Hg] 06/28/2024 06:58 AM Blood Pressure Systolic (8480-6) 1 37 mm[Hg] Blood Pressure Diastolic (8462-4) 88 mm[Hg] 06/29/2024 01:38 PM Temperature (8310-5) 98.1 [degF] Respiratory Rate (9279-1) 16 /min Heart Rate (8867-4) 66 /min 06/29/2024 01:37 PM Oxygen Saturation (41036-4) 93 % 06/29/2024 07:53 AM Blood Pressure Systolic (8480-6) 1 24 mm[Hg] Blood Pressure Diastolic (8462-4) 72 mm[Hg] 06/29/2024 09:02 PM Temperature (8310-5) 97 [degF] Respiratory Rate (9279-1) 16 /min Heart Rate (8867-4) 88 /min Blood Pressure Systolic (8480-6) 126 mm[Hg] Blood Pressure Diastolic (8462-4) 80 mm[Hg] 06/29/2024 09:01 PM Oxygen Saturation (10568-3) 96 % 06/29/2024 08:21 PM Blood Pressure Systolic (8480-6) 1 22 mm[Hg] Blood Pressure Diastolic (8462-4) 78 mm[Hg] 06/30/2024 08:09 PM Temperature (8310-5) 98.6 [degF] Oxygen Saturation (90596-3) 94 % Respiratory Rate (9279-1) 17 /min Heart Rate (8867-4) 67 /min Blood Pressure Systolic (8480-6) 128 mm[Hg] Blood Pressure Diastolic (8462-4) 64 mm[Hg] 06/30/2024 08:03 AM Temperature (8310-5) 99.2 [degF] Oxygen Saturation (68218-6) 93 % Respiratory Rate (9279-1) 18 /min Heart Rate (8867-4) 79 /min Blood Pressure Systolic (8480-6) 142 mm[Hg] Blood Pressure Diastolic (8462-4) 86 mm[Hg] 07/01/2024 09:42 AM Temperature (8310-5) 96.5 [degF] Oxygen Saturation (98821-0) 96 % Respiratory Rate (9279-1) 20 /min Heart Rate (8867-4) 68 /min Blood Pressure Systolic (8480-6) 139 mm[Hg] Blood Pressure Diastolic (8462-4) 71 mm[Hg] 07/01/2024 07:22 AM Blood Pressure Systolic (8480-6) 1 42 mm[Hg] Blood Pressure Diastolic (8462-4) 70 mm[Hg] 07/02/2024 09:26 AM Temperature (8310-5) 96.9 [degF] Respiratory Rate (9279-1) 16 /min Heart Rate (8867-4) 72 /min 07/02/2024 09:24 AM Oxygen Saturation (80372-2) 94 % 07/02/2024 09:22 AM Blood Pressure Systolic (8480-6) 1 45 mm[Hg] Blood Pressure Diastolic (8462-4) 68 mm[Hg] 07/01/2024 11:36 PM Body Weight (51116-9) 104.6 [lb_av ] Body Mass Index (21350-3) 20.43 kg/m2 07/01/2024 09:54 PM Temperature (8310-5) 98 [degF] Oxygen Saturation (34173-3) 95 % Respiratory Rate (9279-1) 16 /min Heart Rate (8867-4) 69 /min Blood Pressure Systolic (8480-6) 97 mm[Hg] Blood Pressure Diastolic (8462-4) 80 mm[Hg] 07/01/2024 08:07 PM Blood Pressure Systolic (8480-6) 9 7 mm[Hg] Blood Pressure Diastolic (8462-4) 80 mm[Hg] 07/02/2024 08:29 PM Temperature (8310-5) 98.5 [degF] Oxygen Saturation (58072-8) 94 % Respiratory Rate (9279-1) 21 /min [...] PM Temperature (8310-5) 96.4 [degF] Oxygen Saturation (27733-9) 97 % Respiratory Rate (9279-1) 16 /min Heart Rate (8867-4) 73 /min Blood Pressure Systolic (8480-6) 110 mm[Hg] Blood Pressure Diastolic (8462-4) 158 mm[Hg] 07/03/2024 01:37 PM Body Weight (67575-3) 105 [lb_av] Body Mass Index (45382-8) 20.5 kg/m2 07/03/2024 06:52 AM Temperature (8310-5) 97.8 [degF] Respiratory Rate (9279-1) 18 /min Heart Rate (8867-4) 60 /min Blood Pressure Systolic (8480-6) 129 mm[Hg] Blood Pressure Diastolic (8462-4) 69 mm[Hg] 07/03/2024 06:47 AM Oxygen Saturation (59938-8) 96 % 07/04/2024 02:14 PM Body Weight (87028-8) 105.4 [lb_av ] Body Mass Index (67660-7) 20.58 kg/m2 07/04/2024 09:11 AM Temperature (8310-5) 97.5 [degF] Oxygen Saturation (32998-9) 95 % Respiratory Rate (9279-1) 16 /min Heart Rate (8867-4) 69 /min Blood Pressure Systolic (8480-6) 124 mm[Hg] Blood Pressure Diastolic (8462-4) 73 mm[Hg] 07/04/2024 07:51 AM Oxygen Saturation (37355-6) 94 % 07/05/2024 01:23 PM Body Weight (29731-8) 106.3 [lb_av ] Body Mass Index (86935-6) 20.76 kg/m2 07/05/2024 11:31 AM Temperature (8310-5) 97.1 [degF] Oxygen Saturation (87205-5) 99 % Respiratory Rate (9279-1) 16 /min Heart Rate (8867-4) 76 /min 07/05/2024 11:30 AM Blood Pressure Systolic (8480-6) 1 17 mm[Hg] Blood Pressure Diastolic (8462-4) 70 mm[Hg] 07/04/2024 08:43 PM Temperature (8310-5) 97.9 [degF] Respiratory Rate (9279-1) 20 /min Heart Rate (8867-4) 69 /min 07/04/2024 08:42 PM Oxygen Saturation (76094-8) 92 % 07/04/2024 06:41 PM Blood Pressure Systolic (8480-6) 1 20 mm[Hg] Blood Pressure Diastolic (8462-4) 80 mm[Hg] 07/06/2024 02:29 PM Body Weight (34765-2) 106.1 [lb_av ] Body Mass Index (54028-1) 20.72 kg/m2 07/06/2024 12:15 PM Temperature (8310-5) 97.8 [degF] Oxygen Saturation (24973-4) 94 % Respiratory Rate (9279-1) 20 /min Heart Rate (8867-4) 72 /min 07/06/2024 07:39 AM Blood Pressure Systolic (8480-6) 1 24 mm[Hg] Blood Pressure Diastolic (8462-4) 70 mm[Hg] 07/05/2024 07:49 PM Temperature (8310-5) 98.7 [degF] Oxygen Saturation (60014-1) 96 % Respiratory Rate (9279-1) 18 /min Heart Rate (8867-4) 79 /min 07/05/2024 06:45 PM Blood Pressure Systolic (8480-6) 1 54 mm[Hg] Blood Pressure Diastolic (8462-4) 78 mm[Hg] 07/07/2024 10:08 AM Temperature (8310-5) 97.7 [degF] Oxygen Saturation (43548-9) 94 % Respiratory Rate (9279-1) 19 /min Heart Rate (8867-4) 61 /min Blood Pressure Systolic (8480-6) 136 mm[Hg] Blood Pressure Diastolic (8462-4) 79 mm[Hg] 07/07/2024 09:11 AM Blood Pressure Systolic (8480-6) 1 34 mm[Hg] Blood Pressure Diastolic (8462-4) 78 mm[Hg] 07/06/2024 09:01 PM Temperature (8310-5) 98.2 [degF] Respiratory Rate (9279-1) 19 /min Heart Rate (8867-4) 67 /min 07/06/2024 09:00 PM Oxygen Saturation (67107-4) 94 % 07/06/2024 06:47 PM Blood Pressure Systolic (8480-6) 1 10 mm[Hg] Blood Pressure Diastolic (8462-4) 82 mm[Hg] 07/07/2024 08:10 PM Temperature (8310-5) 98.5 [degF] Respiratory Rate (9279-1) 21 /min Heart Rate (8867-4) 58 /min 07/07/2024 07:41 PM Blood Pressure Systolic (8480-6) 1 20 mm[Hg] Blood Pressure Diastolic (8462-4) 75 mm[Hg] 07/07/2024 07:40 PM Oxygen Saturation (77893-3) 99 % 07/08/2024 07:37 PM Temperature (8310-5) 98.5 [degF] Oxygen Saturation (78125-9) 97 % Respiratory Rate (9279-1) 21 /min Heart Rate (8867-4) 64 /min Blood Pressure Systolic (8480-6) 109 mm[Hg] Blood Pressure Diastolic (8462-4) 67 mm[Hg] 07/08/2024 11:55 AM Temperature (8310-5) 97.8 [degF] Respiratory Rate (9279-1) 20 /min Heart Rate (8867-4) 66 /min Blood Pressure Systolic (8480-6) 115 mm[Hg] Blood Pressure Diastolic (8462-4) 69 mm[Hg] 07/08/2024 11:54 AM Oxygen Saturation (69345-9) 94 % 07/08/2024 11:07 AM Blood Pressure Systolic (8480-6) 1 15 mm[Hg] Blood Pressure Diastolic (8462-4) 69 mm[Hg] 07/09/2024 07:38 AM Blood Pressure Systolic (8480-6) 1 36 mm[Hg] Blood Pressure Diastolic (8462-4) 68 mm[Hg] 07/09/2024 07:37 AM Oxygen Saturation (02608-7) 95 % 07/09/2024 07:36 AM Temperature (8310-5) 96.7 [degF] Oxygen Saturation (07637-2) 95 % Respiratory Rate (9279-1) 19 /min Heart Rate (8867-4) 59 /min Blood Pressure Systolic (8480-6) 136 mm[Hg] Blood Pressure Diastolic (8462-4) 68 mm[Hg] 07/09/2024 08:53 PM Temperature (8310-5) 98.4 [degF] Respiratory Rate (9279-1) 21 /min Heart Rate (8867-4) 61 /min 07/09/2024 08:52 PM Oxygen Saturation (84312-4) 99 % Blood Pressure Systolic (8480-6) 116 mm[Hg] Blood Pressure Diastolic (8462-4) 60 mm[Hg] 07/10/2024 09:19 PM Temperature (8310-5) 98.1 [degF] Oxygen Saturation (96551-1) 91 % Respiratory Rate (9279-1) 17 /min Heart Rate (8867-4) 69 /min Blood Pressure Systolic (8480-6) 146 mm[Hg] Blood Pressure Diastolic (8462-4) 72 mm[Hg] 07/10/2024 08:53 AM Temperature (8310-5) 97.2 [degF] Oxygen Saturation (29505-0) 99 % Respiratory Rate (9279-1) 19 /min Heart Rate (8867-4) 60 /min 07/10/2024 07:34 AM Blood Pressure Systolic (8480-6) 1 14 mm[Hg] Blood Pressure Diastolic (8462-4) 68 mm[Hg] 07/11/2024 09:19 AM Temperature (8310-5) 97 [degF] Oxygen Saturation (07535-9) 97 % Respiratory Rate (9279-1) 20 /min Heart Rate (8867-4) 71 /min Blood Pressure Systolic (8480-6) 132 mm[Hg] Blood Pressure Diastolic (8462-4) 67 mm[Hg] 07/11/2024 07:20 PM Temperature (8310-5) 96.9 [degF] Respiratory Rate (9279-1) 20 /min Heart Rate (8867-4) 68 /min 07/11/2024 07:19 PM Oxygen Saturation (08006-1) 98 % 07/11/2024 06:42 PM Blood Pressure Systolic (8480-6) 1 02 mm[Hg] Blood Pressure Diastolic (8462-4) 50 mm[Hg] 07/12/2024 08:21 AM Temperature (8310-5) 98.2 [degF] Oxygen Saturation (31671-9) 100 % Respiratory Rate (9279-1) 16 /min Heart Rate (8867-4) 74 /min 07/12/2024 08:20 AM Blood Pressure Systolic (8480-6) 1 15 mm[Hg] Blood Pressure Diastolic (8462-4) 77 mm[Hg] 07/12/2024 07:33 AM Body Weight (58689-1) 116.2 [lb_av ] Body Mass Index (86409-4) 22.69 kg/m2 07/12/2024 07:33 AM Body Weight (46366-7) 105.2 [lb_av ] Body Mass Index (65643-3) 20.54 kg/m2 07/12/2024 06:38 PM Blood Pressure Systolic (8480-6) 1 12 mm[Hg] Blood Pressure Diastolic (8462-4) 62 mm[Hg] 07/12/2024 06:50 PM Oxygen Saturation (60298-1) 97 % 07/12/2024 06:51 PM Temperature (8310-5) 97.4 [degF] Respiratory Rate (9279-1) 17 /min Heart Rate (8867-4) 77 /min 07/13/2024 08:13 AM Temperature (8310-5) 96.9 [degF] Oxygen Saturation (17764-4) 93 % Respiratory Rate (9279-1) 16 /min Heart Rate (8867-4) 81 /min 07/13/2024 08:12 AM Blood Pressure Systolic (8480-6) 1 55 mm[Hg] Blood Pressure Diastolic (8462-4) 72 mm[Hg] 07/13/2024 10:37 PM Temperature (8310-5) 97 [degF] Respiratory Rate (9279-1) 16 /min Heart Rate (8867-4) 70 /min Blood Pressure Systolic (8480-6) 120 mm[Hg] Blood Pressure Diastolic (8462-4) 88 mm[Hg] 07/13/2024 10:35 PM Oxygen Saturation (58023-9) 96 % 07/13/2024 08:11 PM Blood Pressure Systolic (8480-6) 1 35 mm[Hg] Blood Pressure Diastolic (8462-4) 78 mm[Hg] 07/14/2024 12:55 PM Temperature (8310-5) 97.4 [degF] Oxygen Saturation (97081-4) 98 % Respiratory Rate (9279-1) 17 /min Heart Rate (8867-4) 63 /min Blood Pressure Systolic (8480-6) 136 mm[Hg] Blood Pressure Diastolic (8462-4) 57 mm[Hg] 07/14/2024 08:04 PM Temperature (8310-5) 98.3 [degF] Oxygen Saturation (48999-5) 95 % Respiratory Rate (9279-1) 21 /min Heart Rate (8867-4) 80 /min 07/14/2024 08:03 PM Blood Pressure Systolic (8480-6) 1 13 mm[Hg] Blood Pressure Diastolic (8462-4) 73 mm[Hg] 07/15/2024 07:08 AM Temperature (8310-5) 96.5 [degF] Oxygen Saturation (15999-7) 98 % Respiratory Rate (9279-1) 17 /min Heart Rate (8867-4) 67 /min Blood Pressure Systolic (8480-6) 172 mm[Hg] Blood Pressure Diastolic (8462-4) 88 mm[Hg] 07/15/2024 08:31 PM Temperature (8310-5) 98.2 [degF] Respiratory Rate (9279-1) 25 /min Heart Rate (8867-4) 80 /min 07/15/2024 08:29 PM Oxygen Saturation (69588-6) 96 % 07/15/2024 07:25 PM Blood Pressure [...] 85 mm[Hg] 07/16/2024 11:57 AM Oxygen Saturation (35176-6) 95 % 07/16/2024 09:58 PM Temperature (8310-5) 98.4 [degF] Oxygen Saturation (94925-1) 96 % Respiratory Rate (9279-1) 20 /min Heart Rate (8867-4) 71 /min Blood Pressure Systolic (8480-6) 113 mm[Hg] Blood Pressure Diastolic (8462-4) 71 mm[Hg] 07/17/2024 08:54 AM Temperature (8310-5) 97.5 [degF] Respiratory Rate (9279-1) 17 /min Heart Rate (8867-4) 67 /min 07/17/2024 08:53 AM Oxygen Saturation (25964-4) 95 % Blood Pressure Systolic (8480-6) 131 mm[Hg] Blood Pressure Diastolic (8462-4) 72 mm[Hg] 07/17/2024 07:08 PM Temperature (8310-5) 97.4 [degF] Oxygen Saturation (77222-2) 96 % Respiratory Rate (9279-1) 18 /min Heart Rate (8867-4) 74 /min Blood Pressure Systolic (8480-6) 128 mm[Hg] Blood Pressure Diastolic (8462-4) 74 mm[Hg] 07/18/2024 07:41 AM Temperature (8310-5) 97.5 [degF] Oxygen Saturation (24862-8) 99 % Respiratory Rate (9279-1) 19 /min [...] PM Temperature (8310-5) 99 [degF] Oxygen Saturation (16448-7) 99 % Respiratory Rate (9279-1) 18 /min Heart Rate (8867-4) 74 /min 07/18/2024 07:05 PM Blood Pressure Systolic (8480-6) 1 00 mm[Hg] Blood Pressure Diastolic (8462-4) 68 mm[Hg] 07/19/2024 06:32 PM Blood Pressure Systolic (8480-6) 1 28 mm[Hg] Blood Pressure Diastolic (8462-4) 60 mm[Hg] 07/19/2024 02:34 PM Oxygen Saturation (40234-9) 99 % 07/19/2024 11:22 AM Body Weight (41581-9) 104.2 [lb_av ] Body Mass Index (57908-7) 20.35 kg/m2 07/19/2024 10:44 AM Temperature (8310-5) 97.8 [degF] Oxygen Saturation (53149-9) 97 % Respiratory Rate (9279-1) 18 /min Heart Rate (8867-4) 73 /min Blood Pressure Systolic (8480-6) 127 mm[Hg] Blood Pressure Diastolic (8462-4) 61 mm[Hg] 07/19/2024 10:43 AM Oxygen Saturation (58720-5) 97 % 07/19/2024 07:01 PM Temperature (8310-5) 98.4 [degF] Oxygen Saturation (78451-0) 99 % Respiratory Rate (9279-1) 18 /min Heart Rate (8867-4) 65 /min 07/20/2024 09:25 AM Temperature (8310-5) 98.6 [degF] Oxygen Saturation (85599-9) 94 % Respiratory Rate (9279-1) 20 /min Heart Rate (8867-4) 66 /min Blood Pressure Systolic (8480-6) 128 mm[Hg] Blood Pressure Diastolic (8462-4) 59 mm[Hg] 07/20/2024 06:33 AM Oxygen Saturation (08344-6) 94 % Blood Pressure Systolic (8480-6) 128 mm[Hg] Blood Pressure Diastolic (8462-4) 59 mm[Hg] 07/20/2024 06:46 PM Blood Pressure Systolic (8480-6) 1 14 mm[Hg] Blood Pressure Diastolic (8462-4) 83 mm[Hg] 07/20/2024 07:56 PM Temperature (8310-5) 98.1 [degF] Oxygen Saturation (53259-4) 98 % Respiratory Rate (9279-1) 20 /min Heart Rate (8867-4) 71 /min 07/21/2024 08:28 AM Temperature (8310-5) 96.8 [degF] Oxygen Saturation (58860-5) 100 % Respiratory Rate (9279-1) 16 /min Heart Rate (8867-4) 56 /min 07/21/2024 08:26 AM Blood Pressure Systolic (8480-6) 1 31 mm[Hg] Blood Pressure Diastolic (8462-4) 88 mm[Hg] 07/21/2024 08:26 PM Temperature (8310-5) 98.1 [degF] Respiratory Rate (9279-1) 19 /min Heart Rate (8867-4) 68 /min Blood Pressure Systolic (8480-6) 107 mm[Hg] Blood Pressure Diastolic (8462-4) 61 mm[Hg] 07/21/2024 08:25 PM Oxygen Saturation (05632-8) 98 % 07/21/2024 08:03 PM Blood Pressure Systolic (8480-6) 1 07 mm[Hg] Blood Pressure Diastolic (8462-4) 61 mm[Hg] 07/22/2024 07:07 AM Temperature (8310-5) 98.8 [degF] Oxygen Saturation (24421-1) 100 % Respiratory Rate (9279-1) 16 /min Heart Rate (8867-4) 65 /min Blood Pressure Systolic (8480-6) 112 mm[Hg] Blood Pressure Diastolic (8462-4) 68 mm[Hg] 07/22/2024 09:40 PM Temperature (8310-5) 98.4 [degF] Oxygen Saturation (65205-6) 97 % Respiratory Rate (9279-1) 21 /min Heart Rate (8867-4) 68 /min 07/22/2024 09:39 PM Oxygen Saturation (39640-5) 97 % Blood Pressure Systolic (8480-6) 108 mm[Hg] Blood Pressure Diastolic (8462-4) 58 mm[Hg] 07/23/2024 08:32 AM Temperature (8310-5) 97.6 [degF] Oxygen Saturation (98626-5) 97 % Respiratory Rate (9279-1) 19 /min Heart Rate (8867-4) 66 /min 07/23/2024 08:31 AM Blood Pressure Systolic (8480-6) 1 15 mm[Hg] Blood Pressure Diastolic (8462-4) 79 mm[Hg] 07/23/2024 08:23 PM Temperature (8310-5) 97.8 [degF] Oxygen Saturation (89879-9) 96 % Respiratory Rate (9279-1) 21 /min Heart Rate (8867-4) 71 /min 07/23/2024 08:22 PM Blood Pressure Systolic (8480-6) 1 15 mm[Hg] Blood Pressure Diastolic (8462-4) 66 mm[Hg] 07/24/2024 10:28 AM Temperature (8310-5) 97.7 [degF] Oxygen Saturation (51753-6) 98 % Respiratory Rate (9279-1) 18 /min Heart Rate (8867-4) 60 /min 07/24/2024 10:27 AM Blood Pressure Systolic (8480-6) 1 18 mm[Hg] Blood Pressure Diastolic (8462-4) 63 mm[Hg] 07/24/2024 06:32 PM Temperature (8310-5) 98.3 [degF] Oxygen Saturation (76692-1) 99 % Respiratory Rate (9279-1) 19 /min Heart Rate (8867-4) 92 /min Blood Pressure Systolic (8480-6) 129 mm[Hg] Blood Pressure Diastolic (8462-4) 74 mm[Hg] 07/25/2024 06:51 AM Temperature (8310-5) 97.6 [degF] Oxygen Saturation (33864-5) 99 % Respiratory Rate (9279-1) 19 /min Heart Rate (8867-4) 61 /min Blood Pressure Systolic (8480-6) 116 mm[Hg] Blood Pressure Diastolic (8462-4) 66 mm[Hg] 07/25/2024 08:50 PM Temperature (8310-5) 97.3 [degF] Oxygen Saturation (38428-0) 96 % Respiratory Rate (9279-1) 20 /min Heart Rate (8867-4) 65 /min 07/25/2024 06:57 PM Blood Pressure Systolic (8480-6) 1 12 mm[Hg] Blood Pressure Diastolic (8462-4) 75 mm[Hg] 07/26/2024 12:45 PM Body Weight (84227-9) 107 [lb_av] Body Mass Index (89612-5) 20.89 kg/m2 07/26/2024 10:52 AM Temperature (8310-5) 98.1 [degF] Oxygen Saturation (29124-1) 98 % Respiratory Rate (9279-1) 20 /min Heart Rate (8867-4) 59 /min Blood Pressure Systolic (8480-6) 125 mm[Hg] Blood Pressure Diastolic (8462-4) 74 mm[Hg] 07/26/2024 10:51 AM Blood Pressure Systolic (8480-6) 1 25 mm[Hg] Blood Pressure Diastolic (8462-4) 74 mm[Hg] 07/26/2024 07:33 PM Temperature (8310-5) 98.2 [degF] Oxygen Saturation (95283-1) 93 % Respiratory Rate (9279-1) 17 /min Heart Rate (8867-4) 68 /min 07/26/2024 06:46 PM Blood Pressure Systolic (8480-6) 1 08 mm[Hg] Blood Pressure Diastolic (8462-4) 58 mm[Hg] 07/27/2024 09:08 AM Blood Pressure Systolic (8480-6) 1 34 mm[Hg] Blood Pressure Diastolic (8462-4) 66 mm[Hg] 07/27/2024 04:51 PM Oxygen Saturation (32098-1) 97 % 07/27/2024 04:39 PM Temperature (8310-5) 97 [degF] Respiratory Rate (9279-1) 16 /min Heart Rate (8867-4) 69 /min Blood Pressure Systolic (8480-6) 134 mm[Hg] Blood Pressure Diastolic (8462-4) 66 mm[Hg] 07/28/2024 12:13 AM Temperature (8310-5) 97 [degF] Oxygen Saturation (27541-7) 96 % Respiratory Rate (9279-1) 20 /min Heart Rate (8867-4) 64 /min 07/28/2024 12:12 AM Blood Pressure Systolic (8480-6) 1 28 mm[Hg] Blood Pressure Diastolic (8462-4) 68 mm[Hg] 07/28/2024 09:11 AM Oxygen Saturation (26960-2) 96 % 07/28/2024 09:10 AM Temperature (8310-5) 97.6 [degF] Respiratory Rate (9279-1) 16 /min Heart Rate (8867-4) 66 /min Blood Pressure Systolic (8480-6) 151 mm[Hg] Blood Pressure Diastolic (8462-4) 63 mm[Hg] 07/28/2024 10:45 PM Temperature (8310-5) 98.4 [degF] Oxygen Saturation (66829-2) 96 % Respiratory Rate (9279-1) 18 /min Heart Rate (8867-4) 63 /min Blood Pressure Systolic (8480-6) 150 mm[Hg] Blood Pressure Diastolic (8462-4) 99 mm[Hg] 07/29/2024 08:40 AM Temperature (8310-5) 97.9 [degF] Oxygen Saturation (04276-7) 97 % Respiratory Rate (9279-1) 18 /min Heart Rate (8867-4) 65 /min Blood Pressure Systolic (8480-6) 125 mm[Hg] Blood Pressure Diastolic (8462-4) 70 mm[Hg] 07/29/2024 07:48 AM Blood Pressure Systolic (8480-6) 1 25 mm[Hg] Blood Pressure Diastolic (8462-4) 70 mm[Hg] 07/29/2024 09:51 PM Temperature (8310-5) 98.5 [degF] Oxygen Saturation (85248-2) 96 % Respiratory Rate (9279-1) 18 /min Heart Rate (8867-4) 68 /min Blood Pressure Systolic (8480-6) 119 mm[Hg] Blood Pressure Diastolic (8462-4) 73 mm[Hg] 07/29/2024 07:20 PM Blood Pressure Systolic (8480-6) 1 19 mm[Hg] Blood Pressure Diastolic (8462-4) 73 mm[Hg] 07/30/2024 04:00 PM Temperature (8310-5) 97.8 [degF] Oxygen Saturation (18839-0) 95 % Respiratory Rate (9279-1) 20 /min [...] AM Temperature (8310-5) 98.4 [degF] Oxygen Saturation (48399-8) 95 % Respiratory Rate (9279-1) 18 /min Heart Rate (8867-4) 73 /min Blood Pressure Systolic (8480-6) 127 mm[Hg] Blood Pressure Diastolic (8462-4) 77 mm[Hg] 07/31/2024 10:34 AM Temperature (8310-5) 98.2 [degF] Oxygen Saturation (13226-3) 97 % Respiratory Rate (9279-1) 19 /min Heart Rate (8867-4) 60 /min Blood Pressure Systolic (8480-6) 115 mm[Hg] Blood Pressure Diastolic (8462-4) 69 mm[Hg] 07/31/2024 08:15 PM Temperature (8310-5) 96.8 [degF] Oxygen Saturation (49327-6) 98 % Respiratory Rate (9279-1) 17 /min Heart Rate (8867-4) 59 /min Blood Pressure Systolic (8480-6) 116 mm[Hg] Blood Pressure Diastolic (8462-4) 83 mm[Hg] 07/31/2024 08:14 PM Blood Pressure Systolic (8480-6) 1 16 mm[Hg] Blood Pressure Diastolic (8462-4) 83 mm[Hg] 08/01/2024 09:50 AM Body Weight (05739-0) 109.2 [lb_av ] Body Mass Index (18621-2) 21.32 kg/m2 08/01/2024 09:49 AM Blood Pressure Systolic (8480-6) 1 16 mm[Hg] Blood Pressure Diastolic (8462-4) 62 mm[Hg] 08/01/2024 11:04 AM Temperature (8310-5) 97.7 [degF] Oxygen Saturation (58797-1) 99 % Respiratory Rate (9279-1) 17 /min Heart Rate (8867-4) 60 /min Blood Pressure Systolic (8480-6) 116 mm[Hg] Blood Pressure Diastolic (8462-4) 62 mm[Hg] 08/01/2024 06:44 PM Blood Pressure Systolic (8480-6) 1 30 mm[Hg] Blood Pressure Diastolic (8462-4) 70 mm[Hg] 08/01/2024 09:41 PM Temperature (8310-5) 98 [degF] Oxygen Saturation (40388-0) 95 % Respiratory Rate (9279-1) 20 /min Heart Rate (8867-4) 64 /min 08/02/2024 07:14 AM Blood Pressure Systolic (8480-6) 1 18 mm[Hg] Blood Pressure Diastolic (8462-4) 60 mm[Hg] 08/02/2024 12:53 PM Temperature (8310-5) 98.7 [degF] Oxygen Saturation (23724-9) 94 % Respiratory Rate (9279-1) 19 /min Heart Rate (8867-4) 60 /min Blood Pressure Systolic (8480-6) 118 mm[Hg] Blood Pressure Diastolic (8462-4) 60 mm[Hg] 08/02/2024 07:01 PM Blood Pressure Systolic (8480-6) 1 17 mm[Hg] Blood Pressure Diastolic (8462-4) 57 mm[Hg] 08/02/2024 07:30 PM Temperature (8310-5) 98.1 [degF] Oxygen Saturation (32504-3) 96 % Respiratory Rate (9279-1) 17 /min Heart Rate (8867-4) 59 /min 08/03/2024 10:43 AM Temperature (8310-5) 98.5 [degF] Oxygen Saturation (10369-3) 98 % Respiratory Rate (9279-1) 16 /min Heart Rate (8867-4) 86 /min Blood Pressure Systolic (8480-6) 142 mm[Hg] Blood Pressure Diastolic (8462-4) 92 mm[Hg] 08/03/2024 10:24 AM Blood Pressure Systolic (8480-6) 1 41 mm[Hg] Blood Pressure Diastolic (8462-4) 76 mm[Hg] 08/03/2024 07:19 PM Temperature (8310-5) 98.4 [degF] Oxygen Saturation (40836-6) 95 % Respiratory Rate (9279-1) 16 /min Heart Rate (8867-4) 66 /min 08/03/2024 06:56 PM Blood Pressure Systolic (8480-6) 1 25 mm[Hg] Blood Pressure Diastolic (8462-4) 70 mm[Hg] 08/04/2024 01:52 PM Temperature (8310-5) 96.8 [degF] Oxygen Saturation (31002-2) 99 % Respiratory Rate (9279-1) 16 /min Heart Rate (8867-4) 69 /min 08/04/2024 10:06 AM Blood Pressure Systolic (8480-6) 1 11 mm[Hg] Blood Pressure Diastolic (8462-4) 77 mm[Hg] 08/04/2024 08:47 PM Temperature (8310-5) 98.9 [degF] Oxygen Saturation (49167-9) 94 % Respiratory Rate (9279-1) 20 /min Heart Rate (8867-4) 64 /min Blood Pressure Systolic (8480-6) 128 mm[Hg] Blood Pressure Diastolic (8462-4) 68 mm[Hg] 08/05/2024 09:05 AM Blood Pressure Systolic (8480-6) 1 18 mm[Hg] Blood Pressure Diastolic (8462-4) 60 mm[Hg] 08/05/2024 09:55 AM Temperature (8310-5) 98.6 [degF] Oxygen Saturation (29304-4) 96 % Respiratory Rate (9279-1) 18 /min Heart Rate (8867-4) 76 /min 08/06/2024 12:18 AM Temperature (8310-5) 98 [degF] Oxygen Saturation (37091-5) 95 % Respiratory Rate (9279-1) 16 /min [...] PM Temperature (8310-5) 97.5 [degF] Oxygen Saturation (79892-3) 93 % Respiratory Rate (9279-1) 18 /min Heart Rate (8867-4) 60 /min Blood Pressure Systolic (8480-6) 132 mm[Hg] Blood Pressure Diastolic (8462-4) 63 mm[Hg] 08/06/2024 07:36 PM Temperature (8310-5) 98.8 [degF] Oxygen Saturation (50643-4) 94 % Respiratory Rate (9279-1) 21 /min Heart Rate (8867-4) 80 /min Blood Pressure Systolic (8480-6) 129 mm[Hg] Blood Pressure Diastolic (8462-4) 77 mm[Hg] 08/07/2024 08:45 AM Blood Pressure Systolic (8480-6) 1 10 mm[Hg] Blood Pressure Diastolic (8462-4) 61 mm[Hg] 08/07/2024 11:32 AM Temperature (8310-5) 97.8 [degF] Oxygen Saturation (12220-7) 94 % Respiratory Rate (9279-1) 19 /min Heart Rate (8867-4) 60 /min Blood Pressure Systolic (8480-6) 110 mm[Hg] Blood Pressure Diastolic (8462-4) 61 mm[Hg] 08/07/2024 08:29 PM Blood Pressure Systolic (8480-6) 1 04 mm[Hg] Blood Pressure Diastolic (8462-4) 63 mm[Hg] 08/07/2024 08:30 PM Temperature (8310-5) 98.3 [degF] Oxygen Saturation (95229-4) 90 % Respiratory Rate (9279-1) 16 /min Heart Rate (8867-4) 75 /min Blood Pressure Systolic (8480-6) 104 mm[Hg] Blood Pressure Diastolic (8462-4) 63 mm[Hg] 08/08/2024 08:33 AM Temperature (8310-5) 98 [degF] Oxygen Saturation (23917-8) 98 % Respiratory Rate (9279-1) 16 /min Heart Rate (8867-4) 57 /min Blood Pressure Systolic (8480-6) 130 mm[Hg] Blood Pressure Diastolic (8462-4) 53 mm[Hg] 08/08/2024 06:47 AM Blood Pressure Systolic (8480-6) 1 30 mm[Hg] Blood Pressure Diastolic (8462-4) 53 mm[Hg] 08/08/2024 07:13 PM Temperature (8310-5) 98.2 [degF] Oxygen Saturation (61265-4) 96 % Respiratory Rate (9279-1) 15 /min Heart Rate (8867-4) 82 /min 08/08/2024 06:52 PM Blood Pressure Systolic (8480-6) 1 17 mm[Hg] Blood Pressure Diastolic (8462-4) 67 mm[Hg] 08/09/2024 09:20 AM Temperature (8310-5) 97.9 [degF] Oxygen Saturation (24398-7) 98 % Respiratory Rate (9279-1) 16 /min [...] PM Temperature (8310-5) 96.9 [degF] Oxygen Saturation (56602-4) 97 % Respiratory Rate (9279-1) 15 /min Heart Rate (8867-4) 66 /min 08/10/2024 09:10 AM Blood Pressure Systolic (8480-6) 1 28 mm[Hg] Blood Pressure Diastolic (8462-4) 63 mm[Hg] 08/10/2024 09:27 AM Temperature (8310-5) 97.8 [degF] Oxygen Saturation (94909-9) 99 % Respiratory Rate (9279-1) 20 /min Heart Rate (8867-4) 86 /min 08/10/2024 06:59 PM Temperature (8310-5) 97.1 [degF] Oxygen Saturation (15878-7) 90 % Respiratory Rate (9279-1) 16 /min Heart Rate (8867-4) 64 /min 08/10/2024 06:39 PM Blood Pressure Systolic (8480-6) 1 18 mm[Hg] Blood Pressure Diastolic (8462-4) 69 mm[Hg] 08/11/2024 08:19 AM Blood Pressure Systolic (8480-6) 1 21 mm[Hg] Blood Pressure Diastolic (8462-4) 74 mm[Hg] 08/11/2024 11:09 AM Temperature (8310-5) 97.2 [degF] Oxygen Saturation (47581-4) 97 % Respiratory Rate (9279-1) 15 /min [...] AM Temperature (8310-5) 97.9 [degF] Oxygen Saturation (42602-1) 96 % Respiratory Rate (9279-1) 18 /min [...] AM Temperature (8310-5) 97 [degF] Oxygen Saturation (89017-8) 95 % Respiratory Rate (9279-1) 18 /min Heart Rate (8867-4) 88 /min Blood Pressure Systolic (8480-6) 120 mm[Hg] Blood Pressure Diastolic (8462-4) 78 mm[Hg] 08/13/2024 10:17 AM Temperature (8310-5) 98.8 [degF] Oxygen Saturation (69163-1) 96 % Respiratory Rate (9279-1) 13 /min Heart Rate (8867-4) 56 /min 08/14/2024 12:36 AM Temperature (8310-5) 98.4 [degF] Oxygen Saturation (71611-2) 95 % Respiratory Rate (9279-1) 16 /min Heart Rate (8867-4) 66 /min Blood Pressure Systolic (8480-6) 124 mm[Hg] Blood Pressure Diastolic (8462-4) 80 mm[Hg] 08/13/2024 10:29 PM Blood Pressure Systolic (8480-6) 1 25 mm[Hg] Blood Pressure Diastolic (8462-4) 78 mm[Hg] 08/14/2024 09:11 AM Temperature (8310-5) 97.8 [degF] Oxygen Saturation (67559-9) 97 % Respiratory Rate (9279-1) 19 /min [...] PM Temperature (8310-5) 98.3 [degF] Oxygen Saturation (94763-4) 99 % Respiratory Rate (9279-1) 18 /min Heart Rate (8867-4) 60 /min Blood Pressure Systolic (8480-6) 102 mm[Hg] Blood Pressure Diastolic (8462-4) 85 mm[Hg] 08/15/2024 09:53 AM Blood Pressure Systolic (8480-6) 1 68 mm[Hg] Blood Pressure Diastolic (8462-4) 77 mm[Hg] 08/15/2024 09:54 AM Temperature (8310-5) 98.6 [degF] Oxygen Saturation (66473-0) 99 % Respiratory Rate (9279-1) 16 /min Heart Rate (8867-4) 64 /min 08/15/2024 06:57 PM Blood Pressure Systolic (8480-6) 1 40 mm[Hg] Blood Pressure Diastolic (8462-4) 70 mm[Hg] 08/15/2024 09:12 PM Temperature (8310-5) 97.5 [degF] Oxygen Saturation (95147-4) 95 % Respiratory Rate (9279-1) 62 /min Heart Rate (8867-4) 22 /min 08/16/2024 08:52 AM Temperature (8310-5) 97.9 [degF] Oxygen Saturation (03500-3) 99 % Respiratory Rate (9279-1) 16 /min [...] PM Temperature (8310-5) 98.6 [degF] Oxygen Saturation (61852-8) 96 % Respiratory Rate (9279-1) 20 /min Heart Rate (8867-4) 65 /min 08/17/2024 06:43 PM Blood Pressure Systolic (8480-6) 1 25 mm[Hg] Blood Pressure Diastolic (8462-4) 74 mm[Hg] 08/17/2024 07:05 PM Temperature (8310-5) 97.2 [degF] Oxygen Saturation (45961-1) 92 % Respiratory Rate (9279-1) 17 /min Heart Rate (8867-4) 65 /min 08/17/2024 05:58 PM Temperature (8310-5) 97.8 [degF] Oxygen Saturation (46589-7) 96 % Respiratory Rate (9279-1) 18 /min Heart Rate (8867-4) 63 /min Blood Pressure Systolic (8480-6) 112 mm[Hg] Blood Pressure Diastolic (8462-4) 70 mm[Hg] 08/18/2024 09:00 AM Temperature (8310-5) 97.7 [degF] Oxygen Saturation (21034-1) 97 % Respiratory Rate (9279-1) 14 /min [...] PM Temperature (8310-5) 98.2 [degF] Oxygen Saturation (29671-4) 96 % Respiratory Rate (9279-1) 21 /min Heart Rate (8867-4) 70 /min Blood Pressure Systolic (8480-6) 124 mm[Hg] Blood Pressure Diastolic (8462-4) 95 mm[Hg] 08/19/2024 08:05 AM Blood Pressure Systolic (8480-6) 1 32 mm[Hg] Blood Pressure Diastolic (8462-4) 78 mm[Hg] 08/19/2024 12:58 PM Temperature (8310-5) 97.6 [degF] Oxygen Saturation (04987-2) 98 % Respiratory Rate (9279-1) 18 /min Heart Rate (8867-4) 71 /min 08/19/2024 08:00 PM Temperature (8310-5) 98 [degF] Oxygen Saturation (55262-9) 97 % Respiratory Rate (9279-1) 18 /min Heart Rate (8867-4) 80 /min Blood Pressure Systolic (8480-6) 124 mm[Hg] Blood Pressure Diastolic (8462-4) 68 mm[Hg] 08/20/2024 07:53 AM Blood Pressure Systolic (8480-6) 1 48 mm[Hg] Blood Pressure Diastolic (8462-4) 63 mm[Hg] 08/20/2024 10:35 AM Temperature (8310-5) 97.8 [degF] Oxygen Saturation (63156-3) 95 % Respiratory Rate (9279-1) 19 /min Heart Rate (8867-4) 60 /min 08/20/2024 08:08 PM Blood Pressure Systolic (8480-6) 1 33 mm[Hg] Blood Pressure Diastolic (8462-4) 80 mm[Hg] 08/20/2024 08:09 PM Temperature (8310-5) 98.7 [degF] Oxygen Saturation (71779-2) 96 % Respiratory Rate (9279-1) 23 /min Heart Rate (8867-4) 67 /min 08/21/2024 08:21 AM Temperature (8310-5) 97 [degF] Oxygen Saturation (84508-6) 96 % Respiratory Rate (9279-1) 18 /min Heart Rate (8867-4) 60 /min 08/21/2024 06:39 AM Blood Pressure Systolic (8480-6) 1 41 mm[Hg] Blood Pressure Diastolic (8462-4) 62 mm[Hg] 08/21/2024 07:47 PM Temperature (8310-5) 97.1 [degF] Oxygen Saturation (15328-5) 98 % Respiratory Rate (9279-1) 15 /min Heart Rate (8867-4) 67 /min Blood Pressure Systolic (8480-6) 119 mm[Hg] Blood Pressure Diastolic (8462-4) 67 mm[Hg] 08/22/2024 07:01 AM Blood Pressure Systolic (8480-6) 1 42 mm[Hg] Blood Pressure Diastolic (8462-4) 77 mm[Hg] 08/22/2024 08:38 AM Temperature (8310-5) 98.4 [degF] Oxygen Saturation (92053-3) 98 % Respiratory Rate (9279-1) 15 /min Heart Rate (8867-4) 59 /min Blood Pressure Systolic (8480-6) 134 mm[Hg] Blood Pressure Diastolic (8462-4) 67 mm[Hg] 08/22/2024 06:57 PM Blood Pressure Systolic (8480-6) 1 42 mm[Hg] Blood Pressure Diastolic (8462-4) 77 mm[Hg] 08/22/2024 07:28 PM Temperature (8310-5) 97.6 [degF] Oxygen Saturation (81370-0) 96 % Respiratory Rate (9279-1) 15 /min Heart Rate (8867-4) 70 /min 08/23/2024 07:29 AM Blood Pressure Systolic (8480-6) 1 21 mm[Hg] Blood Pressure Diastolic (8462-4) 72 mm[Hg] 08/23/2024 03:26 PM Temperature (8310-5) 97.8 [degF] Oxygen Saturation (70068-8) 95 % Respiratory Rate (9279-1) 18 /min Heart Rate (8867-4) 63 /min Blood Pressure Systolic (8480-6) 121 mm[Hg] Blood Pressure Diastolic (8462-4) 50 mm[Hg] 08/23/2024 10:39 PM Temperature (8310-5) 97.5 [degF] Oxygen Saturation (43361-2) 97 % Respiratory Rate (9279-1) 18 /min Heart Rate (8867-4) 61 /min 08/23/2024 07:03 PM Blood Pressure Systolic (8480-6) 1 38 mm[Hg] Blood Pressure Diastolic (8462-4) 99 mm[Hg] 08/24/2024 06:49 AM Blood Pressure Systolic (8480-6) 1 38 mm[Hg] Blood Pressure Diastolic (8462-4) 74 mm[Hg] 08/24/2024 05:31 PM Temperature (8310-5) 98 [degF] Oxygen Saturation (61016-1) 94 % Respiratory Rate (9279-1) 16 /min Heart Rate (8867-4) 59 /min Blood Pressure Systolic (8480-6) 138 mm[Hg] Blood Pressure Diastolic (8462-4) 74 mm[Hg] 08/24/2024 08:02 PM Temperature (8310-5) 98 [degF] Oxygen Saturation (67481-2) 94 % Respiratory Rate (9279-1) 15 /min Heart Rate (8867-4) 58 /min Blood Pressure Systolic (8480-6) 106 mm[Hg] Blood Pressure Diastolic (8462-4) 57 mm[Hg] 08/25/2024 11:30 AM Blood Pressure Systolic (8480-6) 1 35 mm[Hg] Blood Pressure Diastolic (8462-4) 86 mm[Hg] 08/25/2024 11:47 AM Temperature (8310-5) 98.9 [degF] Oxygen Saturation (36089-5) 96 % Respiratory Rate (9279-1) 17 /min Heart Rate (8867-4) 62 /min 08/25/2024 07:04 PM Blood Pressure Systolic (8480-6) 9 6 mm[Hg] Blood Pressure Diastolic (8462-4) 56 mm[Hg] 08/25/2024 09:16 PM Temperature (8310-5) 98.6 [degF] Oxygen Saturation (07570-5) 96 % Respiratory Rate (9279-1) 20 /min Heart Rate (8867-4) 57 /min 08/26/2024 08:00 AM Temperature (8310-5) 97.7 [degF] Oxygen Saturation (58198-2) 97 % Respiratory Rate (9279-1) 17 /min Heart Rate (8867-4) 60 /min Blood Pressure Systolic (8480-6) 142 mm[Hg] Blood Pressure Diastolic (8462-4) 78 mm[Hg] 08/26/2024 08:48 PM Temperature (8310-5) 98.6 [degF] Oxygen Saturation (98297-7) 96 % Respiratory Rate (9279-1) 18 /min Heart Rate (8867-4) 65 /min Blood Pressure Systolic (8480-6) 124 mm[Hg] Blood Pressure Diastolic (8462-4) 65 mm[Hg] 08/27/2024 08:07 AM Temperature (8310-5) 98 [degF] Oxygen Saturation (83490-2) 96 % Respiratory Rate (9279-1) 14 /min [...] AM Temperature (8310-5) 98.5 [degF] Oxygen Saturation (96355-6) 95 % Respiratory Rate (9279-1) 18 /min Heart Rate (8867-4) 61 /min Blood Pressure Systolic (8480-6) 117 mm[Hg] Blood Pressure Diastolic (8462-4) 62 mm[Hg] 08/28/2024 09:33 AM Temperature (8310-5) 98.3 [degF] Oxygen Saturation (58854-1) 94 % Respiratory Rate (9279-1) 17 /min Heart Rate (8867-4) 57 /min 08/28/2024 08:22 AM Blood Pressure Systolic (8480-6) 1 32 mm[Hg] Blood Pressure Diastolic (8462-4) 52 mm[Hg] 08/28/2024 07:12 PM Blood Pressure Systolic (8480-6) 1 10 mm[Hg] Blood Pressure Diastolic (8462-4) 65 mm[Hg] 08/28/2024 07:21 PM Temperature (8310-5) 97.3 [degF] Oxygen Saturation (73750-9) 90 % Respiratory Rate (9279-1) 15 /min Heart Rate (8867-4) 69 /min 08/29/2024 03:14 PM Oxygen Saturation (81726-6) 91 % 08/29/2024 10:09 AM Blood Pressure [...] PM Temperature (8310-5) 97.4 [degF] Oxygen Saturation (41715-5) 95 % Respiratory Rate (9279-1) 16 /min Heart Rate (8867-4) 55 /min Blood Pressure Systolic (8480-6) 124 mm[Hg] Blood Pressure Diastolic (8462-4) 69 mm[Hg] 08/30/2024 09:12 AM Temperature (8310-5) 97.2 [degF] Oxygen Saturation (91999-2) 96 % Respiratory Rate (9279-1) 16 /min Heart Rate (8867-4) 52 /min Blood Pressure Systolic (8480-6) 131 mm[Hg] Blood Pressure Diastolic (8462-4) 66 mm[Hg] 08/30/2024 07:35 AM Blood Pressure Systolic (8480-6) 1 31 mm[Hg] Blood Pressure Diastolic (8462-4) 66 mm[Hg] 08/30/2024 11:24 PM Temperature (8310-5) 97.6 [degF] Oxygen Saturation (02997-7) 95 % Respiratory Rate (9279-1) 16 /min Heart Rate (8867-4) 56 /min 08/30/2024 06:54 PM Blood Pressure Systolic (8480-6) 1 26 mm[Hg] Blood Pressure Diastolic (8462-4) 81 mm[Hg] 08/31/2024 07:51 AM Blood Pressure Systolic (8480-6) 1 38 mm[Hg] Blood Pressure Diastolic (8462-4) 98 mm[Hg] 08/31/2024 08:27 AM Temperature (8310-5) 98.2 [degF] Oxygen Saturation (37895-1) 95 % Respiratory Rate (9279-1) 18 /min Heart Rate (8867-4) 62 /min Body Weight (62697-4) 108.6 [lb_av] Body Mass Index (97264-2) 21.21 kg/m2 08/31/2024 06:21 PM Blood Pressure Systolic (8480-6) 1 12 mm[Hg] Blood Pressure Diastolic (8462-4) 66 mm[Hg] 08/31/2024 07:20 PM Temperature (8310-5) 97.9 [degF] Oxygen Saturation (20030-7) 93 % Respiratory Rate (9279-1) 18 /min Heart Rate (8867-4) 60 /min Blood Pressure Systolic (8480-6) 112 mm[Hg] Blood Pressure Diastolic (8462-4) 66 mm[Hg] 09/01/2024 08:49 AM Blood Pressure Systolic (8480-6) 1 08 mm[Hg] Blood Pressure Diastolic (8462-4) 68 mm[Hg] 09/01/2024 12:47 PM Temperature (8310-5) 98 [degF] Oxygen Saturation (89968-8) 94 % Respiratory Rate (9279-1) 18 /min Heart Rate (8867-4) 64 /min 09/01/2024 11:04 PM Oxygen Saturation (60627-3) 97 % 09/01/2024 11:03 PM Temperature (8310-5) 97 [degF] Respiratory Rate (9279-1) 16 /min Heart Rate (8867-4) 68 /min 09/01/2024 11:02 PM Blood Pressure Systolic (8480-6) 1 43 mm[Hg] Blood Pressure Diastolic (8462-4) 66 mm[Hg] 09/02/2024 09:22 AM Blood Pressure Systolic (8480-6) 1 75 mm[Hg] Blood Pressure Diastolic (8462-4) 93 mm[Hg] 09/02/2024 03:08 PM Body Weight (39144-6) 104.8 [lb_av ] Body Mass Index (39537-8) 20.47 kg/m2 09/02/2024 12:39 PM Temperature (8310-5) 98.2 [degF] Oxygen Saturation (07122-2) 96 % Respiratory Rate (9279-1) 17 /min Heart Rate (8867-4) 84 /min 09/02/2024 11:14 PM Temperature (8310-5) 97 [degF] Oxygen Saturation (06772-6) 96 % Respiratory Rate (9279-1) 16 /min [...] AM Temperature (8310-5) 98.4 [degF] Oxygen Saturation (94984-3) 94 % Respiratory Rate (9279-1) 17 /min [...] AM Temperature (8310-5) 97.4 [degF] Oxygen Saturation (27657-5) 95 % Respiratory Rate (9279-1) 16 /min Heart Rate (8867-4) 62 /min 01/04/2025 04:17 PM Body Weight (27862-2) 107.4 [lb_av ] Body Mass Index (08838-1) 20.97 kg/m2 11/10/2024 10:33 AM Body Weight (49371-4) 105.8 [lb_av ] Body Mass Index (66571-2) 20.66 kg/m2 01/03/2025 08:57 PM Temperature (8310-5) 98.1 [degF] Oxygen Saturation (33146-7) 95 % Respiratory Rate (9279-1) 15 /min Heart Rate (8867-4) 56 /min Blood Pressure Systolic (8480-6) 118 mm[Hg] Blood Pressure Diastolic (8462-4) 54 mm[Hg] 01/01/2025 09:17 AM Temperature (8310-5) 97.5 [degF] Oxygen Saturation (68896-5) 98 % Respiratory Rate (9279-1) 20 /min Heart Rate (8867-4) 74 /min 01/05/2025 01:58 PM Body Weight (53634-7) 109 [lb_av] Body Mass Index (12269-7) 21.29 kg/m2 01/04/2025 04:13 PM Temperature (8310-5) 97.6 [degF] Oxygen Saturation (55472-1) 98 % Respiratory Rate (9279-1) 18 /min Heart Rate (8867-4) 51 /min Blood Pressure Systolic (8480-6) 140 mm[Hg] Blood Pressure Diastolic (8462-4) 63 mm[Hg] 11/15/2024 09:37 AM Body Weight (52375-6) 110 [lb_av] Body Mass Index (61801-8) 21.48 kg/m2 01/05/2025 10:46 AM Temperature (8310-5) 97.4 [degF] Oxygen Saturation (15246-4) 97 % Respiratory Rate (9279-1) 16 /min Heart Rate (8867-4) 63 /min Blood Pressure Systolic (8480-6) 121 mm[Hg] Blood Pressure Diastolic (8462-4) 59 mm[Hg] 01/02/2025 08:04 AM Temperature (8310-5) 98.1 [degF] Oxygen Saturation (91604-4) 94 % Respiratory Rate (9279-1) 15 /min Heart Rate (8867-4) 51 /min 01/04/2025 11:23 AM Blood Pressure Systolic (8480-6) 1 40 mm[Hg] Blood Pressure Diastolic (8462-4) 82 mm[Hg] 01/03/2025 10:31 AM Blood Pressure Systolic (8480-6) 1 32 mm[Hg] Blood Pressure Diastolic (8462-4) 85 mm[Hg] 01/02/2025 06:20 PM Blood Pressure Systolic (8480-6) 1 27 mm[Hg] Blood Pressure Diastolic (8462-4) 74 mm[Hg] 01/04/2025 08:54 PM Temperature (8310-5) 98.2 [degF] Oxygen Saturation (56950-7) 97 % Respiratory Rate (9279-1) 17 /min Heart Rate (8867-4) 63 /min 01/01/2025 10:24 PM Temperature (8310-5) 96.8 [degF] Oxygen Saturation (52663-5) 99 % Respiratory Rate (9279-1) 16 /min Heart Rate (8867-4) 55 /min 11/18/2024 11:01 AM Body Weight (85036-8) 105.4 [lb_av ] Body Mass Index (95500-2) 20.58 kg/m2 01/03/2025 02:43 PM Body Weight (65554-1) 110.6 [lb_av ] Body Mass Index (27374-0) 21.6 kg/m2 01/03/2025 10:32 AM Temperature (8310-5) 97.9 [degF] Oxygen Saturation (15162-3) 96 % Respiratory Rate (9279-1) 16 /min Heart Rate (8867-4) 51 /min 11/17/2024 03:23 PM Body Weight (58777-1) 105 [lb_av] Body Mass Index (80529-0) 20.5 kg/m2 11/11/2024 05:21 PM Body Weight (86868-4) 103.1 [lb_av ] Body Mass Index (67590-1) 20.13 kg/m2 11/12/2024 01:52 PM Body Weight (14323-9) 104.6 [lb_av ] Body Mass Index (93225-3) 20.43 kg/m2 01/01/2025 01:52 PM Body Weight (77812-4) 109.8 [lb_av ] Body Mass Index (96553-5) 21.44 kg/m2 11/19/2024 10:03 AM Body Weight (27577-4) 105 [lb_av] Body Mass Index (91278-1) 20.5 kg/m2 10/25/2024 12:38 PM Body Weight (40691-3) 104.4 [lb_av ] Body Mass Index (51792-3) 20.39 kg/m2 01/04/2025 08:53 PM Blood Pressure Systolic (8480-6) 1 19 mm[Hg] Blood Pressure Diastolic (8462-4) 67 mm[Hg] 11/08/2024 11:19 AM Body Weight (86037-4) 108 [lb_av] Body Mass Index (69682-4) 21.09 kg/m2 10/11/2024 12:02 PM Body Weight (55778-6) 102.2 [lb_av ] Body Mass Index (89698-3) 19.96 kg/m2 12/31/2024 11:45 PM Temperature (8310-5) 98.2 [degF] Oxygen Saturation (07138-9) 97 % Respiratory Rate (9279-1) 16 /min Heart Rate (8867-4) 64 /min 01/03/2025 06:27 PM Blood Pressure Systolic (8480-6) 1 21 mm[Hg] Blood Pressure Diastolic (8462-4) 79 mm[Hg] 01/02/2025 05:55 AM Blood Pressure Systolic (8480-6) 9 1 mm[Hg] Blood Pressure Diastolic (8462-4) 49 mm[Hg] 12/01/2024 08:07 AM Body Weight (79478-9) 105 [lb_av] Body Mass Index (23236-3) 20.5 kg/m2 01/03/2025 12:22 AM Temperature (8310-5) 98.1 [degF] Oxygen Saturation (32896-3) 93 % Respiratory Rate (9279-1) 16 /min Heart Rate (8867-4) 65 /min Blood Pressure Systolic (8480-6) 127 mm[Hg] Blood Pressure Diastolic (8462-4) 74 mm[Hg] 10/31/2024 09:10 AM Body Weight (56036-1) 102.1 [lb_av ] Body Mass Index (46458-6) 19.94 kg/m2 01/05/2025 09:39 PM Temperature (8310-5) 97.7 [degF] Oxygen Saturation (76101-2) 95 % Respiratory Rate (9279-1) 18 /min Heart Rate (8867-4) 69 /min 01/05/2025 07:05 PM Blood Pressure Systolic (8480-6) 1 37 mm[Hg] Blood Pressure Diastolic (8462-4) 71 mm[Hg] 01/06/2025 05:19 AM Temperature (8310-5) 96.9 [degF] Oxygen Saturation (48784-5) 99 % Respiratory Rate (9279-1) 18 /min Heart Rate (8867-4) 62 /min Blood Pressure Systolic (8480-6) 138 mm[Hg] Blood Pressure Diastolic (8462-4) 74 mm[Hg] 01/06/2025 11:39 PM Temperature (8310-5) 97.8 [degF] Oxygen Saturation (79839-0) 97 % Respiratory Rate (9279-1) 18 /min Heart Rate (8867-4) 74 /min 01/06/2025 11:38 PM Blood Pressure Systolic (8480-6) 1 25 mm[Hg] Blood Pressure Diastolic (8462-4) 68 mm[Hg] 01/07/2025 06:59 AM Temperature (8310-5) 96.5 [degF] Oxygen Saturation (33705-5) 99 % Respiratory Rate (9279-1) 19 /min Heart Rate (8867-4) 60 /min Blood Pressure Systolic (8480-6) 147 mm[Hg] Blood Pressure Diastolic (8462-4) 83 mm[Hg] 01/07/2025 06:58 AM Blood Pressure Systolic (8480-6) 1 47 mm[Hg] Blood Pressure Diastolic (8462-4) 83 mm[Hg] 01/07/2025 11:38 PM Blood Pressure Systolic (8480-6) 1 33 mm[Hg] Blood Pressure Diastolic (8462-4) 77 mm[Hg] 01/08/2025 12:51 AM Temperature (8310-5) 97.4 [degF] Oxygen Saturation (09654-8) 97 % Respiratory Rate (9279-1) 17 /min Heart Rate (8867-4) 67 /min 01/08/2025 09:25 AM Temperature (8310-5) 96.8 [degF] Oxygen Saturation (05025-0) 95 % Respiratory Rate (9279-1) 14 /min Heart Rate (8867-4) 64 /min Blood Pressure Systolic (8480-6) 152 mm[Hg] Blood Pressure Diastolic (8462-4) 79 mm[Hg] 01/08/2025 06:52 PM Blood Pressure Systolic (8480-6) 1 17 mm[Hg] Blood Pressure Diastolic (8462-4) 92 mm[Hg] 01/08/2025 08:54 PM Temperature (8310-5) 97.1 [degF] Oxygen Saturation (70949-6) 94 % Respiratory Rate (9279-1) 17 /min Heart Rate (8867-4) 57 /min 01/09/2025 08:54 AM Temperature (8310-5) 98.2 [degF] Oxygen Saturation (13442-7) 95 % Respiratory Rate (9279-1) 16 /min Heart Rate (8867-4) 54 /min Blood Pressure Systolic (8480-6) 120 mm[Hg] Blood Pressure Diastolic (8462-4) 61 mm[Hg] 01/09/2025 06:17 PM Blood Pressure Systolic (8480-6) 1 20 mm[Hg] Blood Pressure Diastolic (8462-4) 64 mm[Hg] 01/09/2025 07:49 PM Temperature (8310-5) 97.4 [degF] Oxygen Saturation (30742-5) 97 % Respiratory Rate (9279-1) 14 /min Heart Rate (8867-4) 55 /min Blood Pressure Systolic (8480-6) 120 mm[Hg] Blood Pressure Diastolic (8462-4) 64 mm[Hg] 01/10/2025 09:26 AM Temperature (8310-5) 97.4 [degF] Oxygen Saturation (52399-7) 98 % Respiratory Rate (9279-1) 16 /min Heart Rate (8867-4) 62 /min Blood Pressure Systolic (8480-6) 143 mm[Hg] Blood Pressure Diastolic (8462-4) 75 mm[Hg] 01/10/2025 06:23 PM Blood Pressure Systolic (8480-6) 1 35 mm[Hg] Blood Pressure Diastolic (8462-4) 86 mm[Hg] 01/10/2025 09:52 PM Temperature (8310-5) 96.9 [degF] Oxygen Saturation (12087-6) 97 % Respiratory Rate (9279-1) 15 /min Heart Rate (8867-4) 54 /min 01/11/2025 07:08 AM Blood Pressure Systolic (8480-6) 1 51 mm[Hg] Blood Pressure Diastolic (8462-4) 77 mm[Hg] 01/11/2025 06:44 PM Temperature (8310-5) 97.7 [degF] Oxygen Saturation (43002-2) 93 % Respiratory Rate (9279-1) 18 /min Heart Rate (8867-4) 53 /min Blood Pressure Systolic (8480-6) 117 mm[Hg] Blood Pressure Diastolic (8462-4) 61 mm[Hg] 01/11/2025 05:44 PM Temperature (8310-5) 97.5 [degF] Oxygen Saturation (54548-2) 96 % Respiratory Rate (9279-1) 17 /min Heart Rate (8867-4) 58 /min 01/12/2025 08:08 AM Temperature (8310-5) 97.5 [degF] Oxygen Saturation (42537-6) 99 % Respiratory Rate (9279-1) 16 /min Heart Rate (8867-4) 53 /min Blood Pressure Systolic (8480-6) 115 mm[Hg] Blood Pressure Diastolic (8462-4) 66 mm[Hg] 01/12/2025 06:21 AM Blood Pressure Systolic (8480-6) 1 22 mm[Hg] Blood Pressure Diastolic (8462-4) 74 mm[Hg] 01/13/2025 12:10 AM Temperature (8310-5) 97.8 [degF] Oxygen Saturation (37635-2) 97 % Respiratory Rate (9279-1) 18 /min Heart Rate (8867-4) 61 /min 01/12/2025 11:20 PM Blood Pressure Systolic (8480-6) 1 07 mm[Hg] Blood Pressure Diastolic (8462-4) 57 mm[Hg] 01/13/2025 08:18 AM Blood Pressure Systolic (8480-6) 1 03 mm[Hg] Blood Pressure Diastolic (8462-4) 57 mm[Hg] 01/13/2025 10:09 AM Temperature (8310-5) 97.5 [degF] Oxygen Saturation (75125-8) 97 % Respiratory Rate (9279-1) 16 /min Heart Rate (8867-4) 56 /min Blood Pressure Systolic (8480-6) 103 mm[Hg] Blood Pressure Diastolic (8462-4) 57 mm[Hg] 01/13/2025 09:45 PM Blood Pressure Systolic (8480-6) 1 14 mm[Hg] Blood Pressure Diastolic (8462-4) 61 mm[Hg] 01/14/2025 12:46 AM Temperature (8310-5) 97.9 [degF] Oxygen Saturation (91963-4) 96 % Respiratory Rate (9279-1) 17 /min Heart Rate (8867-4) 61 /min 01/14/2025 10:29 AM Temperature (8310-5) 97.8 [degF] Oxygen Saturation (98586-6) 96 % Respiratory Rate (9279-1) 18 /min Heart Rate (8867-4) 69 /min 01/14/2025 08:56 AM Blood Pressure Systolic (8480-6) 1 21 mm[Hg] Blood Pressure Diastolic (8462-4) 66 mm[Hg] 01/15/2025 12:09 AM Temperature (8310-5) 98.2 [degF] Oxygen Saturation (49201-5) 95 % Respiratory Rate (9279-1) 17 /min Heart Rate (8867-4) 72 /min 01/14/2025 07:54 PM Blood Pressure Systolic (8480-6) 1 14 mm[Hg] Blood Pressure Diastolic (8462-4) 59 mm[Hg] 01/15/2025 08:48 AM Blood Pressure Systolic (8480-6) 1 21 mm[Hg] Blood Pressure Diastolic (8462-4) 65 mm[Hg] 01/15/2025 06:19 PM Temperature (8310-5) 99 [degF] Oxygen Saturation (57131-8) 98 % Respiratory Rate (9279-1) 14 /min Heart Rate (8867-4) 65 /min Blood Pressure Systolic (8480-6) 121 mm[Hg] Blood Pressure Diastolic (8462-4) 65 mm[Hg] 01/15/2025 06:17 PM Blood Pressure Systolic (8480-6) 1 20 mm[Hg] Blood Pressure Diastolic (8462-4) 74 mm[Hg] 01/15/2025 08:52 PM Temperature (8310-5) 98.6 [degF] Oxygen Saturation (46480-5) 98 % Respiratory Rate (9279-1) 16 /min Heart Rate (8867-4) 84 /min Blood Pressure Systolic (8480-6) 120 mm[Hg] Blood Pressure Diastolic (8462-4) 74 mm[Hg] 01/16/2025 09:46 AM Blood Pressure Systolic (8480-6) 1 37 mm[Hg] Blood Pressure Diastolic (8462-4) 61 mm[Hg] 01/16/2025 09:47 AM Temperature (8310-5) 97.5 [degF] Oxygen Saturation (43539-2) 94 % Respiratory Rate (9279-1) 16 /min Heart Rate (8867-4) 55 /min 01/16/2025 09:17 PM Temperature (8310-5) 97.2 [degF] Oxygen Saturation (67820-4) 96 % Respiratory Rate (9279-1) 16 /min Heart Rate (8867-4) 54 /min 01/16/2025 06:25 PM Blood Pressure Systolic (8480-6) 1 10 mm[Hg] Blood Pressure Diastolic (8462-4) 78 mm[Hg] 01/17/2025 10:11 AM Temperature (8310-5) 97.5 [degF] Oxygen Saturation (05811-0) 98 % Respiratory Rate (9279-1) 18 /min Heart Rate (8867-4) 49 /min Blood Pressure Systolic (8480-6) 137 mm[Hg] Blood Pressure Diastolic (8462-4) 61 mm[Hg] 01/17/2025 06:53 PM Blood Pressure Systolic (8480-6) 1 15 mm[Hg] Blood Pressure Diastolic (8462-4) 67 mm[Hg] 01/18/2025 01:11 AM Temperature (8310-5) 98.3 [degF] Oxygen Saturation (55723-8) 96 % Respiratory Rate (9279-1) 17 /min Heart Rate (8867-4) 74 /min Blood Pressure Systolic (8480-6) 128 mm[Hg] Blood Pressure Diastolic (8462-4) 72 mm[Hg] 01/18/2025 09:59 AM Temperature (8310-5) 98 [degF] Oxygen Saturation (02853-9) 96 % Respiratory Rate (9279-1) 18 /min Heart Rate (8867-4) 82 /min 01/18/2025 09:58 AM Blood Pressure Systolic (8480-6) 1 18 mm[Hg] Blood Pressure Diastolic (8462-4) 68 mm[Hg] 01/18/2025 06:14 PM Blood Pressure Systolic (8480-6) 1 28 mm[Hg] Blood Pressure Diastolic (8462-4) 70 mm[Hg] 01/18/2025 11:08 PM Temperature (8310-5) 98.1 [degF] Oxygen Saturation (86806-8) 95 % Respiratory Rate (9279-1) 19 /min Heart Rate (8867-4) 80 /min 01/19/2025 07:04 AM Blood Pressure Systolic (8480-6) 1 07 mm[Hg] Blood Pressure Diastolic (8462-4) 64 mm[Hg] 01/19/2025 09:19 AM Temperature (8310-5) 97.6 [degF] Oxygen Saturation (93286-8) 98 % Respiratory Rate (9279-1) 16 /min Heart Rate (8867-4) 64 /min Blood Pressure Systolic (8480-6) 107 mm[Hg] Blood Pressure Diastolic (8462-4) 64 mm[Hg] 01/19/2025 08:03 PM Blood Pressure Systolic (8480-6) 1 15 mm[Hg] Blood Pressure Diastolic (8462-4) 58 mm[Hg] 01/19/2025 11:31 PM Temperature (8310-5) 96.7 [degF] Oxygen Saturation (12201-5) 97 % Respiratory Rate (9279-1) 17 /min Heart Rate (8867-4) 62 /min 01/20/2025 05:01 PM Temperature (8310-5) 97 [degF] Oxygen Saturation (78887-3) 96 % Respiratory Rate (9279-1) 17 /min 01/20/2025 08:49 AM Blood Pressure Systolic (8480-6) 1 20 mm[Hg] Blood Pressure Diastolic (8462-4) 60 mm[Hg] 01/20/2025 09:52 PM Temperature (8310-5) 97.4 [degF] Oxygen Saturation (97543-3) 95 % Respiratory Rate (9279-1) 16 /min 01/20/2025 07:14 PM Blood Pressure Systolic (8480-6) 1 16 mm[Hg] Blood Pressure Diastolic (8462-4) 63 mm[Hg] 01/21/2025 01:15 PM Temperature (8310-5) 96.8 [degF] Oxygen Saturation (32976-5) 99 % Respiratory Rate (9279-1) 17 /min Heart Rate (8867-4) 84 /min Blood Pressure Systolic (8480-6) 126 mm[Hg] Blood Pressure Diastolic (8462-4) 94 mm[Hg] 01/21/2025 09:03 AM Blood Pressure Systolic (8480-6) 1 26 mm[Hg] Blood Pressure Diastolic (8462-4) 94 mm[Hg] 01/21/2025 09:41 PM Blood Pressure Systolic (8480-6) 1 17 mm[Hg] Blood Pressure Diastolic (8462-4) 65 mm[Hg] 01/21/2025 10:47 PM Temperature (8310-5) 97.7 [degF] Oxygen Saturation (59248-4) 97 % Respiratory Rate (9279-1) 16 /min Heart Rate (8867-4) 74 /min 01/22/2025 10:11 AM Temperature (8310-5) 96.4 [degF] Oxygen Saturation (39634-2) 90 % Respiratory Rate (9279-1) 14 /min Heart Rate (8867-4) 60 /min 01/22/2025 10:10 AM Blood Pressure Systolic (8480-6) 1 07 mm[Hg] Blood Pressure Diastolic (8462-4) 63 mm[Hg] 01/22/2025 10:24 PM Temperature (8310-5) 97.9 [degF] Oxygen Saturation (36391-1) 90 % Respiratory Rate (9279-1) 19 /min Heart Rate (8867-4) 50 /min 01/22/2025 06:18 PM Blood Pressure Systolic (8480-6) 1 18 mm[Hg] Blood Pressure Diastolic (8462-4) 70 mm[Hg] 01/23/2025 08:02 AM Blood Pressure Systolic (8480-6) 1 47 mm[Hg] Blood Pressure Diastolic (8462-4) 73 mm[Hg] 01/23/2025 06:25 PM Temperature (8310-5) 98 [degF] Oxygen Saturation (29007-5) 95 % Respiratory Rate (9279-1) 14 /min Heart Rate (8867-4) 54 /min Blood Pressure Systolic (8480-6) 147 mm[Hg] Blood Pressure Diastolic (8462-4) 73 mm[Hg] 01/23/2025 06:16 PM Blood Pressure Systolic (8480-6) 1 01 mm[Hg] Blood Pressure Diastolic (8462-4) 54 mm[Hg] 01/23/2025 10:05 PM Temperature (8310-5) 97.4 [degF] Oxygen Saturation (35952-3) 94 % Respiratory Rate (9279-1) 18 /min Heart Rate (8867-4) 86 /min Blood Pressure Systolic (8480-6) 101 mm[Hg] Blood Pressure Diastolic (8462-4) 54 mm[Hg] 01/24/2025 10:13 AM Temperature (8310-5) 97.3 [degF] Oxygen Saturation (03338-9) 98 % Respiratory Rate (9279-1) 20 /min Heart Rate (8867-4) 59 /min Blood Pressure Systolic (8480-6) 122 mm[Hg] Blood Pressure Diastolic (8462-4) 61 mm[Hg] 01/24/2025 09:27 AM Blood Pressure Systolic (8480-6) 1 22 mm[Hg] Blood Pressure Diastolic (8462-4) 61 mm[Hg] 01/24/2025 11:41 PM Temperature (8310-5) 97.7 [degF] Oxygen Saturation (66289-7) 96 % Respiratory Rate (9279-1) 20 /min Heart Rate (8867-4) 55 /min 01/24/2025 07:10 PM Blood Pressure Systolic (8480-6) 1 05 mm[Hg] Blood Pressure Diastolic (8462-4) 64 mm[Hg] 01/25/2025 12:50 PM Temperature (8310-5) 97.7 [degF] Oxygen Saturation (93356-2) 98 % Respiratory Rate (9279-1) 17 /min Heart Rate (8867-4) 59 /min Blood Pressure Systolic (8480-6) 107 mm[Hg] Blood Pressure Diastolic (8462-4) 62 mm[Hg] 01/25/2025 09:55 AM Blood Pressure Systolic (8480-6) 1 07 mm[Hg] Blood Pressure Diastolic (8462-4) 62 mm[Hg] 01/25/2025 06:53 PM Blood Pressure Systolic (8480-6) 1 13 mm[Hg] Blood Pressure Diastolic (8462-4) 67 mm[Hg] 01/25/2025 09:04 PM Temperature (8310-5) 98.3 [degF] Oxygen Saturation (46680-8) 97 % Respiratory Rate (9279-1) 16 /min Heart Rate (8867-4) 62 /min 01/26/2025 08:50 AM Temperature (8310-5) 97.9 [degF] Oxygen Saturation (75405-1) 95 % Respiratory Rate (9279-1) 16 /min Heart Rate (8867-4) 63 /min Blood Pressure Systolic (8480-6) 115 mm[Hg] Blood Pressure Diastolic (8462-4) 68 mm[Hg] 01/26/2025 07:01 AM Blood Pressure Systolic (8480-6) 1 15 mm[Hg] Blood Pressure Diastolic (8462-4) 68 mm[Hg] 01/26/2025 07:19 PM Blood Pressure Systolic (8480-6) 1 19 mm[Hg] Blood Pressure Diastolic (8462-4) 63 mm[Hg] 01/26/2025 11:52 PM Temperature (8310-5) 98.2 [degF] Oxygen Saturation (25101-8) 96 % Respiratory Rate (9279-1) 17 /min Heart Rate (8867-4) 67 /min 01/27/2025 10:15 AM Temperature (8310-5) 99.1 [degF] Oxygen Saturation (90440-3) 95 % Respiratory Rate (9279-1) 20 /min Heart Rate (8867-4) 72 /min Blood Pressure Systolic (8480-6) 119 mm[Hg] Blood Pressure Diastolic (8462-4) 61 mm[Hg] 01/27/2025 07:28 PM Blood Pressure Systolic (8480-6) 1 13 mm[Hg] Blood Pressure Diastolic (8462-4) 63 mm[Hg] 01/27/2025 09:45 PM Temperature (8310-5) 98.7 [degF] Oxygen Saturation (41435-0) 96 % Respiratory Rate (9279-1) 17 /min Heart Rate (8867-4) 69 /min 01/28/2025 08:32 AM Temperature (8310-5) 98 [degF] Oxygen Saturation (14914-7) 97 % Respiratory Rate (9279-1) 18 /min Heart Rate (8867-4) 76 /min Blood Pressure Systolic (8480-6) 122 mm[Hg] Blood Pressure Diastolic (8462-4) 64 mm[Hg] 01/28/2025 07:30 PM Blood Pressure Systolic (8480-6) 1 16 mm[Hg] Blood Pressure Diastolic (8462-4) 66 mm[Hg] 01/28/2025 09:11 PM Temperature (8310-5) 97.7 [degF] Oxygen Saturation (42032-0) 95 % Respiratory Rate (9279-1) 16 /min Heart Rate (8867-4) 68 /min 01/29/2025 08:56 AM Blood Pressure Systolic (8480-6) 1 65 mm[Hg] Blood Pressure Diastolic (8462-4) 66 mm[Hg] 01/29/2025 10:49 AM Temperature (8310-5) 97.9 [degF] Oxygen Saturation (48631-4) 98 % Respiratory Rate (9279-1) 16 /min Heart Rate (8867-4) 60 /min 01/29/2025 07:26 PM Temperature (8310-5) 98.2 [degF] Oxygen Saturation (83024-5) 98 % Respiratory Rate (9279-1) 17 /min Heart Rate (8867-4) 84 /min Blood Pressure Systolic (8480-6) 143 mm[Hg] Blood Pressure Diastolic (8462-4) 93 mm[Hg] 01/30/2025 09:11 AM Temperature (8310-5) 97.7 [degF] Oxygen Saturation (59061-7) 94 % Respiratory Rate (9279-1) 14 /min Heart Rate (8867-4) 50 /min 01/30/2025 09:10 AM Blood Pressure Systolic (8480-6) 1 41 mm[Hg] Blood Pressure Diastolic (8462-4) 53 mm[Hg] 01/30/2025 06:27 PM Blood Pressure Systolic (8480-6) 1 20 mm[Hg] Blood Pressure Diastolic (8462-4) 80 mm[Hg] 01/31/2025 07:13 AM Blood Pressure Systolic (8480-6) 1 11 mm[Hg] Blood Pressure Diastolic (8462-4) 71 mm[Hg] 01/31/2025 02:25 AM Temperature (8310-5) 98.6 [degF] Oxygen Saturation (39617-6) 93 % Respiratory Rate (9279-1) 18 /min Heart Rate (8867-4) 55 /min 01/31/2025 09:21 AM Temperature (8310-5) 96.6 [degF] Oxygen Saturation (48474-7) 92 % Respiratory Rate (9279-1) 18 /min Heart Rate (8867-4) 55 /min 01/31/2025 10:38 PM Temperature (8310-5) 97.3 [degF] Oxygen Saturation (94602-6) 92 % Respiratory Rate (9279-1) 17 /min Heart Rate (8867-4) 57 /min Blood Pressure Systolic (8480-6) 114 mm[Hg] Blood Pressure Diastolic (8462-4) 71 mm[Hg] 01/31/2025 06:31 PM Blood Pressure Systolic (8480-6) 1 14 mm[Hg] Blood Pressure Diastolic (8462-4) 71 mm[Hg] 02/01/2025 06:33 AM Body Weight (97803-2) 108.4 [lb_av ] Body Mass Index (81725-2) 21.17 kg/m2 02/01/2025 10:27 AM Temperature (8310-5) 97.6 [degF] Oxygen Saturation (82242-8) 97 % Respiratory Rate (9279-1) 18 /min Heart Rate (8867-4) 58 /min Blood Pressure Systolic (8480-6) 122 mm[Hg] Blood Pressure Diastolic (8462-4) 61 mm[Hg] 02/01/2025 09:40 PM Temperature (8310-5) 98.1 [degF] Oxygen Saturation (42850-4) 95 % Respiratory Rate (9279-1) 20 /min Heart Rate (8867-4) 58 /min Blood Pressure Systolic (8480-6) 122 mm[Hg] Blood Pressure Diastolic (8462-4) 59 mm[Hg] 02/01/2025 06:46 PM Blood Pressure Systolic (8480-6) 1 22 mm[Hg] Blood Pressure Diastolic (8462-4) 59 mm[Hg] 02/02/2025 06:43 AM Blood Pressure Systolic (8480-6) 1 10 mm[Hg] Blood Pressure Diastolic (8462-4) 64 mm[Hg] 02/02/2025 09:06 AM Temperature (8310-5) 97.7 [degF] Oxygen Saturation (98482-4) 96 % Respiratory Rate (9279-1) 18 /min Heart Rate (8867-4) 50 /min Blood Pressure Systolic (8480-6) 110 mm[Hg] Blood Pressure Diastolic (8462-4) 64 mm[Hg] 02/02/2025 09:12 PM Temperature (8310-5) 98.3 [degF] Oxygen Saturation (17176-3) 95 % Respiratory Rate (9279-1) 17 /min Heart Rate (8867-4) 63 /min 02/02/2025 07:36 PM Blood Pressure Systolic (8480-6) 1 14 mm[Hg] Blood Pressure Diastolic (8462-4) 61 mm[Hg] 02/03/2025 08:57 AM Blood Pressure Systolic (8480-6) 1 10 mm[Hg] Blood Pressure Diastolic (8462-4) 66 mm[Hg] 02/03/2025 11:49 AM Temperature (8310-5) 97.8 [degF] Oxygen Saturation (68999-8) 95 % Respiratory Rate (9279-1) 17 /min Heart Rate (8867-4) 60 /min 02/03/2025 11:10 PM Temperature (8310-5) 98 [degF] Oxygen Saturation (48276-9) 94 % Respiratory Rate (9279-1) 16 /min Heart Rate (8867-4) 63 /min 02/03/2025 07:17 PM Blood Pressure Systolic (8480-6) 1 13 mm[Hg] Blood Pressure Diastolic (8462-4) 61 mm[Hg] 02/04/2025 09:07 AM Blood Pressure Systolic (8480-6) 1 30 mm[Hg] Blood Pressure Diastolic (8462-4) 80 mm[Hg] 02/04/2025 07:26 PM Temperature (8310-5) 97.9 [degF] Oxygen Saturation (54805-0) 99 % Respiratory Rate (9279-1) 17 /min Heart Rate (8867-4) 78 /min Blood Pressure Systolic (8480-6) 130 mm[Hg] Blood Pressure Diastolic (8462-4) 80 mm[Hg] 02/04/2025 11:26 PM Blood Pressure Systolic (8480-6) 1 22 mm[Hg] Blood Pressure Diastolic (8462-4) 72 mm[Hg] 02/05/2025 12:16 AM Temperature (8310-5) 98 [degF] Oxygen Saturation (54426-3) 97 % Respiratory Rate (9279-1) 16 /min Heart Rate (8867-4) 67 /min 02/05/2025 10:01 AM Blood Pressure Systolic (8480-6) 1 00 mm[Hg] Blood Pressure Diastolic (8462-4) 60 mm[Hg] 02/05/2025 10:08 AM Temperature (8310-5) 96.9 [degF] Oxygen Saturation (42789-7) 92 % Respiratory Rate (9279-1) 16 /min Heart Rate (8867-4) 57 /min Blood Pressure Systolic (8480-6) 100 mm[Hg] Blood Pressure Diastolic (8462-4) 60 mm[Hg] 02/05/2025 07:49 PM Temperature (8310-5) 97.3 [degF] Oxygen Saturation (19278-4) 94 % Respiratory Rate (9279-1) 17 /min Heart Rate (8867-4) 64 /min 02/05/2025 06:08 PM Blood Pressure Systolic (8480-6) 1 20 mm[Hg] Blood Pressure Diastolic (8462-4) 50 mm[Hg] 02/06/2025 08:28 AM Blood Pressure Systolic (8480-6) 1 27 mm[Hg] Blood Pressure Diastolic (8462-4) 72 mm[Hg] 02/06/2025 06:45 PM Blood Pressure Systolic (8480-6) 1 30 mm[Hg] Blood Pressure Diastolic (8462-4) 84 mm[Hg] 02/06/2025 10:40 PM Temperature (8310-5) 97.6 [degF] Oxygen Saturation (72580-4) 95 % Respiratory Rate (9279-1) 18 /min Heart Rate (8867-4) 50 /min Blood Pressure Systolic (8480-6) 130 mm[Hg] Blood Pressure Diastolic (8462-4) 84 mm[Hg] 02/06/2025 05:29 PM Temperature (8310-5) 98.3 [degF] Oxygen Saturation (01073-1) 94 % Respiratory Rate (9279-1) 17 /min Heart Rate (8867-4) 62 /min 02/07/2025 08:29 AM Blood Pressure Systolic (8480-6) 1 18 mm[Hg] Blood Pressure Diastolic (8462-4) 54 mm[Hg] 02/07/2025 10:17 PM Temperature (8310-5) 97.4 [degF] Oxygen Saturation (68617-0) 98 % Respiratory Rate (9279-1) 16 /min Heart Rate (8867-4) 72 /min 02/07/2025 06:42 PM Blood Pressure Systolic (8480-6) 1 15 mm[Hg] Blood Pressure Diastolic (8462-4) 75 mm[Hg] 02/07/2025 05:39 PM Temperature (8310-5) 97.1 [degF] Oxygen Saturation (76478-9) 97 % Respiratory Rate (9279-1) 15 /min Heart Rate (8867-4) 53 /min Blood Pressure Systolic (8480-6) 118 mm[Hg] Blood Pressure Diastolic (8462-4) 54 mm[Hg] 02/08/2025 09:13 AM Blood Pressure Systolic (8480-6) 1 38 mm[Hg] Blood Pressure Diastolic (8462-4) 60 mm[Hg] 02/08/2025 09:53 AM Temperature (8310-5) 97.7 [degF] Oxygen Saturation (52195-1) 95 % Respiratory Rate (9279-1) 16 /min Heart Rate (8867-4) 54 /min Blood Pressure Systolic (8480-6) 138 mm[Hg] Blood Pressure Diastolic (8462-4) 60 mm[Hg] 02/08/2025 08:10 PM Temperature (8310-5) 98.4 [degF] Oxygen Saturation (03680-7) 97 % Respiratory Rate (9279-1) 16 /min Heart Rate (8867-4) 56 /min 02/08/2025 08:09 PM Blood Pressure Systolic (8480-6) 1 10 mm[Hg] Blood Pressure Diastolic (8462-4) 61 mm[Hg] 02/09/2025 10:24 AM Blood Pressure Systolic (8480-6) 9 9 mm[Hg] Blood Pressure Diastolic (8462-4) 69 mm[Hg] 02/09/2025 11:19 AM Temperature (8310-5) 97.5 [degF] Oxygen Saturation (95564-4) 97 % Respiratory Rate (9279-1) 17 /min Heart Rate (8867-4) 58 /min 02/09/2025 07:24 PM Blood Pressure Systolic (8480-6) 1 14 mm[Hg] Blood Pressure Diastolic (8462-4) 64 mm[Hg] 02/10/2025 10:04 AM Blood Pressure Systolic (8480-6) 1 20 mm[Hg] Blood Pressure Diastolic (8462-4) 78 mm[Hg] 02/10/2025 07:09 PM Blood Pressure Systolic (8480-6) 1 15 mm[Hg] Blood Pressure Diastolic (8462-4) 69 mm[Hg] 02/11/2025 08:13 AM Blood Pressure Systolic (8480-6) 1 31 mm[Hg] Blood Pressure Diastolic (8462-4) 81 mm[Hg] 02/11/2025 07:15 PM Blood Pressure Systolic (8480-6) 1 19 mm[Hg] Blood Pressure Diastolic (8462-4) 65 mm[Hg] 02/12/2025 08:54 AM Blood Pressure Systolic (8480-6) 9 7 mm[Hg] Blood Pressure Diastolic (8462-4) 60 mm[Hg] 02/12/2025 07:53 PM Blood Pressure Systolic (8480-6) 1 30 mm[Hg] Blood Pressure Diastolic (8462-4) 80 mm[Hg] 02/13/2025 10:46 AM Blood Pressure Systolic (8480-6) 1 41 mm[Hg] Blood Pressure Diastolic (8462-4) 51 mm[Hg] 02/13/2025 03:17 PM Temperature (8310-5) 98.5 [degF] 02/13/2025 06:26 PM Blood Pressure Systolic (8480-6) 1 20 mm[Hg] Blood Pressure Diastolic (8462-4) 74 mm[Hg] 02/13/2025 08:47 PM Temperature (8310-5) 97.3 [degF] 02/14/2025 11:14 AM Oxygen Saturation (65432-3) 98 % Respiratory Rate (9279-1) 16 /min Heart Rate (8867-4) 54 /min 02/14/2025 11:06 AM Blood Pressure Systolic (8480-6) 1 20 mm[Hg] Blood Pressure Diastolic (8462-4) 54 mm[Hg] 02/14/2025 11:13 AM Temperature (8310-5) 97.9 [degF] 02/14/2025 06:39 PM Blood Pressure Systolic (8480-6) 1 10 mm[Hg] Blood Pressure Diastolic (8462-4) 60 mm[Hg] 02/15/2025 11:50 AM Temperature (8310-5) 97.7 [degF] 02/15/2025 11:49 AM Blood Pressure Systolic (8480-6) 1 13 mm[Hg] Blood Pressure Diastolic (8462-4) 54 mm[Hg] 02/15/2025 06:22 PM Blood Pressure Systolic (8480-6) 1 30 mm[Hg] Blood Pressure Diastolic (8462-4) 84 mm[Hg] 02/15/2025 07:50 PM Temperature (8310-5) 98.2 [degF] 02/16/2025 08:21 AM Blood Pressure Systolic (8480-6) 9 3 mm[Hg] Blood Pressure Diastolic (8462-4) 57 mm[Hg] 02/16/2025 07:10 PM Blood Pressure Systolic (8480-6) 1 15 mm[Hg] Blood Pressure Diastolic (8462-4) 63 mm[Hg] 02/17/2025 08:11 AM Blood Pressure Systolic (8480-6) 1 23 mm[Hg] Blood Pressure Diastolic (8462-4) 73 mm[Hg] 02/17/2025 09:21 AM Heart Rate (8867-4) 71 /min 02/17/2025 09:20 AM Blood Pressure Systolic (8480-6) 1 37 mm[Hg] Blood Pressure Diastolic (8462-4) 75 mm[Hg] 02/17/2025 09:20 PM Blood Pressure Systolic (8480-6) 1 19 mm[Hg] Blood Pressure Diastolic (8462-4) 68 mm[Hg] 02/18/2025 07:51 AM Blood Pressure Systolic (8480-6) 1 42 mm[Hg] Blood Pressure Diastolic (8462-4) 82 mm[Hg] 02/18/2025 07:33 PM Blood Pressure Systolic (8480-6) 1 19 mm[Hg] Blood Pressure Diastolic (8462-4) 72 mm[Hg] 02/19/2025 06:48 AM Blood Pressure Systolic (8480-6) 1 21 mm[Hg] Blood Pressure Diastolic (8462-4) 61 mm[Hg] 02/19/2025 07:49 PM Blood Pressure Systolic (8480-6) 1 08 mm[Hg] Blood Pressure Diastolic (8462-4) 76 mm[Hg] 02/20/2025 07:32 AM Blood Pressure Systolic (8480-6) 1 24 mm[Hg] Blood Pressure Diastolic (8462-4) 72 mm[Hg] 02/20/2025 06:37 PM Blood Pressure Systolic (8480-6) 1 18 mm[Hg] Blood Pressure Diastolic (8462-4) 77 mm[Hg] 02/21/2025 06:57 AM Blood Pressure Systolic (8480-6) 1 24 mm[Hg] Blood Pressure Diastolic (8462-4) 67 mm[Hg] 02/21/2025 10:00 AM Temperature (8310-5) 97.4 [degF] Oxygen Saturation (98504-7) 98 % Respiratory Rate (9279-1) 16 /min Heart Rate (8867-4) 56 /min Blood Pressure Systolic (8480-6) 124 mm[Hg] Blood Pressure Diastolic (8462-4) 67 mm[Hg] 02/21/2025 06:22 PM Blood Pressure Systolic (8480-6) 1 20 mm[Hg] Blood Pressure Diastolic (8462-4) 64 mm[Hg] 02/22/2025 06:47 AM Blood Pressure Systolic (8480-6) 1 16 mm[Hg] Blood Pressure Diastolic (8462-4) 56 mm[Hg] 02/22/2025 06:18 PM Blood Pressure Systolic (8480-6) 1 17 mm[Hg] Blood Pressure Diastolic (8462-4) 67 mm[Hg] 02/23/2025 06:43 AM Blood Pressure Systolic (8480-6) 1 21 mm[Hg] Blood Pressure Diastolic (8462-4) 60 mm[Hg] 02/23/2025 07:48 PM Blood Pressure Systolic (8480-6) 1 17 mm[Hg] Blood Pressure Diastolic (8462-4) 63 mm[Hg] 02/24/2025 08:14 AM Blood Pressure Systolic (8480-6) 1 13 mm[Hg] Blood Pressure Diastolic (8462-4) 61 mm[Hg] 02/24/2025 07:00 PM Blood Pressure Systolic (8480-6) 1 28 mm[Hg] Blood Pressure Diastolic (8462-4) 67 mm[Hg] 02/25/2025 08:52 AM Blood Pressure Systolic (8480-6) 1 38 mm[Hg] Blood Pressure Diastolic (8462-4) 78 mm[Hg] 02/25/2025 07:15 PM Blood Pressure Systolic (8480-6) 1 19 mm[Hg] Blood Pressure Diastolic (8462-4) 68 mm[Hg] 02/26/2025 08:12 AM Blood Pressure Systolic (8480-6) 9 6 mm[Hg] Blood Pressure Diastolic (8462-4) 61 mm[Hg] 02/26/2025 06:21 PM Blood Pressure Systolic (8480-6) 1 30 mm[Hg] Blood Pressure Diastolic (8462-4) 76 mm[Hg] 02/27/2025 10:23 AM Blood Pressure Systolic (8480-6) 1 03 mm[Hg] Blood Pressure Diastolic (8462-4) 50 mm[Hg] 02/27/2025 06:22 PM Blood Pressure Systolic (8480-6) 1 24 mm[Hg] Blood Pressure Diastolic (8462-4) 60 mm[Hg] 02/28/2025 06:50 AM Blood Pressure Systolic (8480-6) 1 18 mm[Hg] Blood Pressure Diastolic (8462-4) 68 mm[Hg] 02/28/2025 09:05 AM Temperature (8310-5) 97.6 [degF] Oxygen Saturation (94429-8) 97 % Respiratory Rate (9279-1) 16 /min Heart Rate (8867-4) 55 /min Blood Pressure Systolic (8480-6) 118 mm[Hg] Blood Pressure Diastolic (8462-4) 68 mm[Hg] 02/28/2025 06:43 PM Blood Pressure Systolic (8480-6) 9 0 mm[Hg] Blood Pressure Diastolic (8462-4) 56 mm[Hg] 03/01/2025 07:35 AM Blood Pressure Systolic (8480-6) 1 03 mm[Hg] Blood Pressure Diastolic (8462-4) 56 mm[Hg] 03/01/2025 07:50 PM Blood Pressure Systolic (8480-6) 1 30 mm[Hg] Blood Pressure Diastolic (8462-4) 80 mm[Hg] 03/02/2025 08:16 AM Blood Pressure Systolic (8480-6) 1 03 mm[Hg] Blood Pressure Diastolic (8462-4) 55 mm[Hg] 03/02/2025 06:48 PM Blood Pressure Systolic (8480-6) 1 15 mm[Hg] Blood Pressure Diastolic (8462-4) 61 mm[Hg] 03/03/2025 09:00 AM Blood Pressure Systolic (8480-6) 9 8 mm[Hg] Blood Pressure Diastolic (8462-4) 60 mm[Hg] 03/03/2025 07:34 PM Blood Pressure Systolic (8480-6) 1 08 mm[Hg] Blood Pressure Diastolic (8462-4) 57 mm[Hg] 03/03/2025 06:38 PM Body Weight (77193-8) 108 [lb_av] Body Mass Index (74148-2) 21.09 kg/m2 03/04/2025 10:28 AM Blood Pressure Systolic (8480-6) 1 05 mm[Hg] Blood Pressure Diastolic (8462-4) 83 mm[Hg] 03/04/2025 09:09 PM Blood Pressure Systolic (8480-6) 1 13 mm[Hg] Blood Pressure Diastolic (8462-4) 69 mm[Hg] 03/05/2025 08:47 AM Blood Pressure Systolic (8480-6) 1 06 mm[Hg] Blood Pressure Diastolic (8462-4) 55 mm[Hg] 03/05/2025 06:19 PM Blood Pressure Systolic (8480-6) 1 00 mm[Hg] Blood Pressure Diastolic (8462-4) 56 mm[Hg] 03/06/2025 09:37 AM Blood Pressure Systolic (8480-6) 1 14 mm[Hg] Blood Pressure Diastolic (8462-4) 71 mm[Hg] 03/06/2025 06:55 PM Blood Pressure Systolic (8480-6) 1 17 mm[Hg] Blood Pressure Diastolic (8462-4) 60 mm[Hg] 03/07/2025 08:09 AM Blood Pressure Systolic (8480-6) 1 07 mm[Hg] Blood Pressure Diastolic (8462-4) 61 mm[Hg] 03/07/2025 09:51 AM Temperature (8310-5) 97.6 [degF] Oxygen Saturation (07177-5) 94 % Respiratory Rate (9279-1) 17 /min Heart Rate (8867-4) 62 /min 03/07/2025 06:18 PM Blood Pressure Systolic (8480-6) 1 10 mm[Hg] Blood Pressure Diastolic (8462-4) 59 mm[Hg] 03/08/2025 02:56 PM Blood Pressure Systolic (8480-6) 1 05 mm[Hg] Blood Pressure Diastolic (8462-4) 61 mm[Hg] 03/08/2025 08:26 PM Blood Pressure Systolic (8480-6) 1 15 mm[Hg] Blood Pressure Diastolic (8462-4) 88 mm[Hg] 03/09/2025 06:29 AM Blood Pressure Systolic (8480-6) 1 18 mm[Hg] Blood Pressure Diastolic (8462-4) 76 mm[Hg] 03/09/2025 07:38 PM Blood Pressure Systolic (8480-6) 1 12 mm[Hg] Blood Pressure Diastolic (8462-4) 68 mm[Hg] 03/10/2025 06:50 AM Blood Pressure Systolic (8480-6) 1 14 mm[Hg] Blood Pressure Diastolic (8462-4) 60 mm[Hg] 03/10/2025 10:34 PM Blood Pressure Systolic (8480-6) 1 25 mm[Hg] Blood Pressure Diastolic (8462-4) 64 mm[Hg] 03/11/2025 07:20 AM Blood Pressure Systolic (8480-6) 1 34 mm[Hg] Blood Pressure Diastolic (8462-4) 85 mm[Hg] 03/11/2025 08:25 PM Blood Pressure Systolic (8480-6) 1 12 mm[Hg] Blood Pressure Diastolic (8462-4) 68 mm[Hg] 03/12/2025 08:57 AM Blood Pressure Systolic (8480-6) 9 7 mm[Hg] Blood Pressure Diastolic (8462-4) 60 mm[Hg] 03/12/2025 06:34 PM Blood Pressure Systolic (8480-6) 9 8 mm[Hg] Blood Pressure Diastolic (8462-4) 63 mm[Hg] 03/13/2025 06:32 AM Blood Pressure Systolic (8480-6) 1 04 mm[Hg] Blood Pressure Diastolic (8462-4) 75 mm[Hg] 03/13/2025 06:21 PM Blood Pressure Systolic (8480-6) 1 50 mm[Hg] Blood Pressure Diastolic (8462-4) 60 mm[Hg] 03/14/2025 10:04 AM Temperature (8310-5) 97.5 [degF] Oxygen Saturation (93680-1) 96 % Respiratory Rate (9279-1) 18 /min Heart Rate (8867-4) 79 /min Blood Pressure Systolic (8480-6) 122 mm[Hg] Blood Pressure Diastolic (8462-4) 68 mm[Hg] 03/14/2025 06:56 AM Blood Pressure Systolic (8480-6) 1 22 mm[Hg] Blood Pressure Diastolic (8462-4) 68 mm[Hg] 03/14/2025 07:06 PM Blood Pressure Systolic (8480-6) 1 17 mm[Hg] Blood Pressure Diastolic (8462-4) 77 mm[Hg] 03/15/2025 09:46 AM Blood Pressure Systolic (8480-6) 9 7 mm[Hg] Blood Pressure Diastolic (8462-4) 49 mm[Hg] 03/15/2025 06:25 PM Blood Pressure Systolic (8480-6) 1 18 mm[Hg] Blood Pressure Diastolic (8462-4) 76 mm[Hg] 03/16/2025 06:39 AM Blood Pressure Systolic (8480-6) 1 11 mm[Hg] Blood Pressure Diastolic (8462-4) 62 mm[Hg] 03/16/2025 06:35 PM Blood Pressure Systolic (8480-6) 1 15 mm[Hg] Blood Pressure Diastolic (8462-4) 70 mm[Hg] 03/17/2025 10:29 AM Blood Pressure Systolic (8480-6) 1 09 mm[Hg] Blood Pressure Diastolic (8462-4) 60 mm[Hg] 03/17/2025 06:46 PM Blood Pressure Systolic (8480-6) 1 12 mm[Hg] Blood Pressure Diastolic (8462-4) 73 mm[Hg] 03/18/2025 08:48 AM Blood Pressure Systolic (8480-6) 1 35 mm[Hg] Blood Pressure Diastolic (8462-4) 68 mm[Hg] 03/18/2025 05:59 PM Blood Pressure Systolic (8480-6) 1 12 mm[Hg] Blood Pressure Diastolic (8462-4) 70 mm[Hg] 03/19/2025 09:43 AM Blood Pressure Systolic (8480-6) 1 25 mm[Hg] Blood Pressure Diastolic (8462-4) 77 mm[Hg] 03/19/2025 06:19 PM Blood Pressure Systolic (8480-6) 1 18 mm[Hg] Blood Pressure Diastolic (8462-4) 76 mm[Hg] 03/20/2025 08:45 AM Blood Pressure Systolic (8480-6) 1 27 mm[Hg] Blood Pressure Diastolic (8462-4) 75 mm[Hg] 03/20/2025 06:37 PM Blood Pressure Systolic (8480-6) 1 20 mm[Hg] Blood Pressure Diastolic (8462-4) 72 mm[Hg] 03/21/2025 09:31 AM Blood Pressure Systolic (8480-6) 1 19 mm[Hg] Blood Pressure Diastolic (8462-4) 72 mm[Hg] 03/21/2025 06:27 PM Temperature (8310-5) 97.2 [degF] Oxygen Saturation (96145-2) 96 % Respiratory Rate (9279-1) 17 /min Heart Rate (8867-4) 61 /min Blood Pressure Systolic (8480-6) 119 mm[Hg] Blood Pressure Diastolic (8462-4) 72 mm[Hg] 03/21/2025 06:20 PM Blood Pressure Systolic (8480-6) 1 06 mm[Hg] Blood Pressure Diastolic (8462-4) 69 mm[Hg] 03/22/2025 09:03 AM Blood Pressure Systolic (8480-6) 1 07 mm[Hg] Blood Pressure Diastolic (8462-4) 61 mm[Hg] 03/22/2025 09:08 PM Blood Pressure Systolic (8480-6) 1 00 mm[Hg] Blood Pressure Diastolic (8462-4) 60 mm[Hg] 03/23/2025 09:42 AM Blood Pressure Systolic (8480-6) 1 06 mm[Hg] Blood Pressure Diastolic (8462-4) 65 mm[Hg] 03/23/2025 11:35 PM Blood Pressure Systolic (8480-6) 1 12 mm[Hg] Blood Pressure Diastolic (8462-4) 62 mm[Hg] 03/24/2025 09:32 AM Blood Pressure Systolic (8480-6) 1 19 mm[Hg] Blood Pressure Diastolic (8462-4) 63 mm[Hg] 03/24/2025 06:37 PM Blood Pressure Systolic (8480-6) 1 14 mm[Hg] Blood Pressure Diastolic (8462-4) 60 mm[Hg] 03/25/2025 08:04 AM Blood Pressure Systolic (8480-6) 1 17 mm[Hg] Blood Pressure Diastolic (8462-4) 72 mm[Hg] 03/25/2025 10:31 PM Blood Pressure Systolic (8480-6) 1 13 mm[Hg] Blood Pressure Diastolic (8462-4) 65 mm[Hg] 03/26/2025 08:15 AM Blood Pressure Systolic (8480-6) 9 8 mm[Hg] Blood Pressure Diastolic (8462-4) 60 mm[Hg] 03/26/2025 07:53 PM Blood Pressure Systolic (8480-6) 1 05 mm[Hg] Blood Pressure Diastolic (8462-4) 60 mm[Hg] 03/27/2025 09:35 AM Blood Pressure Systolic (8480-6) 9 8 mm[Hg] Blood Pressure Diastolic (8462-4) 58 mm[Hg] 03/27/2025 06:25 PM Blood Pressure Systolic (8480-6) 1 02 mm[Hg] Blood Pressure Diastolic (8462-4) 56 mm[Hg] 03/28/2025 11:07 AM Temperature (8310-5) 100.7 [degF] Oxygen Saturation (67260-7) 93 % Respiratory Rate (9279-1) 14 /min Heart Rate (8867-4) 58 /min 03/28/2025 09:23 AM Blood Pressure Systolic (8480-6) 1 15 mm[Hg] Blood Pressure Diastolic (8462-4) 51 mm[Hg] 03/28/2025 06:35 PM Blood Pressure Systolic (8480-6) 1 07 mm[Hg] Blood Pressure Diastolic (8462-4) 62 mm[Hg] 03/29/2025 10:07 AM Blood Pressure Systolic (8480-6) 1 29 mm[Hg] Blood Pressure Diastolic (8462-4) 76 mm[Hg] 03/29/2025 07:10 PM Blood Pressure Systolic (8480-6) 1 01 mm[Hg] Blood Pressure Diastolic (8462-4) 64 mm[Hg] 03/30/2025 09:51 AM Blood Pressure Systolic (8480-6) 1 10 mm[Hg] Blood Pressure Diastolic (8462-4) 71 mm[Hg] 03/30/2025 07:10 PM Blood Pressure Systolic (8480-6) 1 18 mm[Hg] Blood Pressure Diastolic (8462-4) 96 mm[Hg] 03/31/2025 08:41 AM Blood Pressure Systolic (8480-6) 9 2 mm[Hg] Blood Pressure Diastolic (8462-4) 44 mm[Hg] 03/31/2025 08:54 PM Blood Pressure Systolic (8480-6) 1 13 mm[Hg] Blood Pressure Diastolic (8462-4) 65 mm[Hg] 04/01/2025 09:16 AM Blood Pressure Systolic (8480-6) 9 9 mm[Hg] Blood Pressure Diastolic (8462-4) 42 mm[Hg] 04/01/2025 06:54 PM Blood Pressure Systolic (8480-6) 1 02 mm[Hg] Blood Pressure Diastolic (8462-4) 56 mm[Hg] 04/02/2025 10:23 AM Blood Pressure Systolic (8480-6) 1 31 mm[Hg] Blood Pressure Diastolic (8462-4) 58 mm[Hg] 04/02/2025 07:56 PM Blood Pressure Systolic (8480-6) 1 30 mm[Hg] Blood Pressure Diastolic (8462-4) 83 mm[Hg] 04/03/2025 10:56 AM Blood Pressure Systolic (8480-6) 1 04 mm[Hg] Blood Pressure Diastolic (8462-4) 65 mm[Hg] 04/03/2025 06:28 PM Blood Pressure Systolic (8480-6) 1 09 mm[Hg] Blood Pressure Diastolic (8462-4) 76 mm[Hg] 04/04/2025 08:13 AM Blood Pressure Systolic (8480-6) 1 12 mm[Hg] Blood Pressure Diastolic (8462-4) 51 mm[Hg] 04/04/2025 09:39 AM Temperature (8310-5) 97.7 [degF] Oxygen Saturation (78592-4) 93 % Respiratory Rate (9279-1) 18 /min Heart Rate (8867-4) 69 /min Blood Pressure Systolic (8480-6) 112 mm[Hg] Blood Pressure Diastolic (8462-4) 51 mm[Hg] 04/04/2025 05:24 PM Blood Pressure Systolic (8480-6) 1 02 mm[Hg] Blood Pressure Diastolic (8462-4) 54 mm[Hg] 04/05/2025 09:20 AM Blood Pressure Systolic (8480-6) 1 07 mm[Hg] Blood Pressure Diastolic (8462-4) 59 mm[Hg] 04/05/2025 06:52 PM Blood Pressure Systolic (8480-6) 1 12 mm[Hg] Blood Pressure Diastolic (8462-4) 70 mm[Hg] 04/06/2025 05:59 AM Blood Pressure Systolic (8480-6) 1 21 mm[Hg] Blood Pressure Diastolic (8462-4) 72 mm[Hg] 04/06/2025 08:56 PM Blood Pressure Systolic (8480-6) 1 18 mm[Hg] Blood Pressure Diastolic (8462-4) 68 mm[Hg] 04/07/2025 09:04 AM Blood Pressure Systolic (8480-6) 1 01 mm[Hg] Blood Pressure Diastolic (8462-4) 63 mm[Hg] 04/08/2025 09:01 AM Blood Pressure Systolic (8480-6) 1 00 mm[Hg] Blood Pressure Diastolic (8462-4) 60 mm[Hg] 04/07/2025 06:53 PM Blood Pressure Systolic (8480-6) 1 13 mm[Hg] Blood Pressure Diastolic (8462-4) 65 mm[Hg] 04/08/2025 06:55 PM Blood Pressure Systolic (8480-6) 1 13 mm[Hg] Blood Pressure Diastolic (8462-4) 64 mm[Hg] 04/09/2025 09:06 AM Blood Pressure Systolic (8480-6) 1 09 mm[Hg] Blood Pressure Diastolic (8462-4) 70 mm[Hg] 04/09/2025 04:54 PM Body Weight (33607-7) 104.6 [lb_av ] Body Mass Index (96107-8) 20.43 kg/m2 04/09/2025 07:49 PM Blood Pressure Systolic (8480-6) 1 12 mm[Hg] Blood Pressure Diastolic (8462-4) 64 mm[Hg] 04/10/2025 09:16 AM Blood Pressure Systolic (8480-6) 1 06 mm[Hg] Blood Pressure Diastolic (8462-4) 69 mm[Hg] 04/10/2025 07:10 PM Blood Pressure Systolic (8480-6) 1 20 mm[Hg] Blood Pressure Diastolic (8462-4) 79 mm[Hg] 04/11/2025 10:07 AM Temperature (8310-5) 97.3 [degF] Oxygen Saturation (74767-3) 93 % Respiratory Rate (9279-1) 15 /min Heart Rate (8867-4) 59 /min 04/11/2025 10:06 AM Blood Pressure Systolic (8480-6) 1 02 mm[Hg] Blood Pressure Diastolic (8462-4) 59 mm[Hg] 04/11/2025 06:22 PM Blood Pressure Systolic (8480-6) 1 18 mm[Hg] Blood Pressure Diastolic (8462-4) 79 mm[Hg] 04/12/2025 09:00 AM Blood Pressure Systolic (8480-6) 1 02 mm[Hg] Blood Pressure Diastolic (8462-4) 57 mm[Hg] 04/13/2025 07:12 AM Blood Pressure Systolic (8480-6) 1 09 mm[Hg] Blood Pressure Diastolic (8462-4) 56 mm[Hg] 04/13/2025 06:54 PM Blood Pressure Systolic (8480-6) 1 15 mm[Hg] Blood Pressure Diastolic (8462-4) 62 mm[Hg] 04/14/2025 08:27 AM Blood Pressure Systolic (8480-6) 1 34 mm[Hg] Blood Pressure Diastolic (8462-4) 70 mm[Hg] 04/14/2025 08:17 PM Blood Pressure Systolic (8480-6) 8 8 mm[Hg] Blood Pressure Diastolic (8462-4) 40 mm[Hg] 04/15/2025 08:30 AM Blood Pressure Systolic (8480-6) 1 08 mm[Hg] Blood Pressure Diastolic (8462-4) 58 mm[Hg] 04/15/2025 08:07 PM Blood Pressure Systolic (8480-6) 1 12 mm[Hg] Blood Pressure Diastolic (8462-4) 62 mm[Hg] 04/16/2025 09:27 AM Blood Pressure Systolic (8480-6) 1 02 mm[Hg] Blood Pressure Diastolic (8462-4) 62 mm[Hg] 04/16/2025 06:37 PM Blood Pressure Systolic (8480-6) 1 06 mm[Hg] Blood Pressure Diastolic (8462-4) 70 mm[Hg] 04/17/2025 09:04 AM Blood Pressure Systolic (8480-6) 9 5 mm[Hg] Blood Pressure Diastolic (8462-4) 62 mm[Hg] 04/17/2025 07:13 PM Blood Pressure Systolic (8480-6) 1 00 mm[Hg] Blood Pressure Diastolic (8462-4) 50 mm[Hg] 04/18/2025 10:30 AM Blood Pressure Systolic (8480-6) 8 9 mm[Hg] Blood Pressure Diastolic (8462-4) 36 mm[Hg] 04/18/2025 05:40 PM Temperature (8310-5) 97.9 [degF] Oxygen Saturation (02645-3) 95 % Respiratory Rate (9279-1) 16 /min Heart Rate (8867-4) 49 /min Blood Pressure Systolic (8480-6) 89 mm[Hg] Blood Pressure Diastolic (8462-4) 46 mm[Hg] 04/19/2025 10:12 AM Blood Pressure Systolic (8480-6) 1 00 mm[Hg] Blood Pressure Diastolic (8462-4) 61 mm[Hg] 04/19/2025 06:40 PM Blood Pressure Systolic (8480-6) 1 06 mm[Hg] Blood Pressure Diastolic (8462-4) 76 mm[Hg] 04/20/2025 07:24 AM Blood Pressure Systolic (8480-6) 1 20 mm[Hg] Blood Pressure Diastolic (8462-4) 67 mm[Hg] 04/20/2025 06:54 PM Blood Pressure Systolic (8480-6) 1 13 mm[Hg] Blood Pressure Diastolic (8462-4) 62 mm[Hg] 04/21/2025 10:10 AM Blood Pressure Systolic (8480-6) 1 12 mm[Hg] Blood Pressure Diastolic (8462-4) 52 mm[Hg] 04/21/2025 06:32 PM Blood Pressure Systolic (8480-6) 1 12 mm[Hg] Blood Pressure Diastolic (8462-4) 65 mm[Hg] 04/22/2025 07:17 AM Blood Pressure Systolic (8480-6) 9 3 mm[Hg] Blood Pressure Diastolic (8462-4) 56 mm[Hg] 04/22/2025 06:47 PM Blood Pressure Systolic (8480-6) 1 07 mm[Hg] Blood Pressure Diastolic (8462-4) 60 mm[Hg] 04/23/2025 08:57 AM Blood Pressure Systolic (8480-6) 9 0 mm[Hg] Blood Pressure Diastolic (8462-4) 58 mm[Hg] 04/23/2025 06:19 PM Blood Pressure Systolic (8480-6) 1 27 mm[Hg] Blood Pressure Diastolic (8462-4) 80 mm[Hg] 04/24/2025 07:31 AM Blood Pressure Systolic (8480-6) 1 04 mm[Hg] Blood Pressure Diastolic (8462-4) 60 mm[Hg] 04/24/2025 06:07 PM Blood Pressure Systolic (8480-6) 1 19 mm[Hg] Blood Pressure Diastolic (8462-4) 77 mm[Hg] 04/25/2025 06:25 AM Blood Pressure Systolic (8480-6) 1 18 mm[Hg] Blood Pressure Diastolic (8462-4) 61 mm[Hg] 04/25/2025 08:38 AM Temperature (8310-5) 98.6 [degF] Oxygen Saturation (37209-2) 96 % Respiratory Rate (9279-1) 17 /min Heart Rate (8867-4) 50 /min Blood Pressure Systolic (8480-6) 118 mm[Hg] Blood Pressure Diastolic (8462-4) 61 mm[Hg] 04/25/2025 06:20 PM Blood Pressure Systolic (8480-6) 1 21 mm[Hg] Blood Pressure Diastolic (8462-4) 70 mm[Hg] 04/26/2025 08:00 AM Blood Pressure Systolic (8480-6) 1 00 mm[Hg] Blood Pressure Diastolic (8462-4) 58 mm[Hg] 04/26/2025 06:40 PM Blood Pressure Systolic (8480-6) 1 31 mm[Hg] Blood Pressure Diastolic (8462-4) 80 mm[Hg] 04/27/2025 09:54 AM Blood Pressure Systolic (8480-6) 1 23 mm[Hg] Blood Pressure Diastolic (8462-4) 68 mm[Hg] 04/27/2025 06:52 PM Blood Pressure Systolic (8480-6) 1 12 mm[Hg] Blood Pressure Diastolic (8462-4) 62 mm[Hg] 04/28/2025 08:57 AM Blood Pressure Systolic (8480-6) 1 10 mm[Hg] Blood Pressure Diastolic (8462-4) 64 mm[Hg] Social History No smoking Hx information available Encounters Type CPT Code Date Location Provider Indication s encounter report 07/17/2017 11:35 AM Mary Alvarado DO 01 Advance Directives Directive Description Verification Date Supporting Document(s) Other Directive
--- OUTSIDE RECORDS SUMMARY | 2025-04-28 18:27 | XMS_ITS | Encounter Summary ---
Author Organization [facility] [employer], [facility] Address [address] [place] [address] Phone Care Team Providers Care Therapist Asst Name Role Phone Sonido Alvarado DO Primary Care Provider [phone] Encounter Details Date Type Department Care Team (Late st Contact Info) Description 06/16/2019 [facility] [address] [place] [address] Evelio Mario MD Chronic kidney disease stage 3 (HCC) Social [...] / CREATININE RATIO Routine 06/08/2019 2:16 PM CHORAL TEACHER Chronic kidney disease stage 3 (HCC) documented in this encounter Results * Urine albumin / creatinine ratio (06/08/2019 2:16 PM CHORAL TEACHER) Urine Microalbumin 3.9 mg/dL Creatinine, Urine Random 30.7 mg/dL Microalb/Creat Ratio 127 30 - 300 ug/mg creat Urine specimen (specimen) 06/08/2019 2:16 PM CHORAL TEACHER Vinicius CanoRoz MA - 06/09/2019 3:32 PM CHORAL TEACHER [facility] [address] [place] [address] [place] #[id number] Metal Spraying Machine Operator: Octavio Perez PhD Evelio Mario MD LAB URINE ORDERABLES Fi nal Result documented in this encounter Visit Diagnoses Diagnosis Chronic kidney disease stage 3 (HCC) documented in this encounter Care Teams Therapist Asst Relationship Specialty Start Date End Date Sonido Alvarado DO [address] [place] [address] PCP - General Internal Medicine 06/06/18 documented as of this encounter
--- OUTSIDE RECORDS SUMMARY | 2025-04-28 18:27 | XMS_ITS | Encounter Summary ---
Author Organization [facility] [employer], [facility] Address [address] [place] [address] Phone Care Team Providers Care News Gathering Technician Name Role Phone Sonido Alvarado DO Primary Care Provider [phone] Encounter Details Date Type Department Care Team (Late st Contact Info) Description 12/20/2018 [facility] Only [facility] [address] [place] [address] Evelio Mario MD Chronic kidney disease stage 3 Social History [...] Ortiz MA - 12/13/2018 7:45 AM CDT [facility] [address] [place] [address] CLIA #[id number] Fore[employer]asper: Octavio Perez PhD Evelio Mario MD LAB URINE ORDERABLES Fi nal Result * Vit D 25 hydroxy (12/07/2018 5:23 AM CDT) Vitamin D, 25-OH, Total 53.7 ng/mL Vitamin D, 25-OH, D3 2.0 Vitamin D, Comment 55.7 Comment:25-OH Vit D2 D3 tota l Blood specimen (specimen) 12/07/2018 5:23 AM CDT Antonella Ortiz MA - 12/12/2018 12:32 PM CDT [facility] [address] [place] [address] CLIA #[id number] Forepart Rasper: Octavio Perez PhD Evelio Mario MD LAB BLOOD ORDERABLES Fi nal Result * PTH, intact (CKD3a) (12/07/2018 5:23 AM CDT) Parathyroid Hormone, Intact 100.7 pg/mL Blood specimen (specimen) 12/07/2018 5:23 AM CDT Mingo Lima MA - 12/08/2018 7:57 AM CDT [facility] [address] [place] [address] CLIA #[id number] Forepart Rasper: Octavio Perez PhD Evelio Mario MD LAB [...] AM CDT Mingo Lima MA - 12/08/2018 7:53 AM CDT [facility] [address] [place] [address] CLIA #[id number] Forepart [employer]asper: Octavio Perez PhD Evelio Mario MD LAB BLOOD ORDERABLES nal Result * (ABNORMAL) RFP (CKD3a) (12/07/2018 [...] Blood specimen (specimen) 12/07/2018 5:23 AM CDT Narrative Mingo Venegas MA - 12/08/2018 7:55 AM CDT [facility] [address] [place], [place] [address] [address] [facility] #[id number] Forepart Rasper: Octavio Perez PhD us Evelio Mario MD LAB BLOOD ORDERABLES Fi nal Result documented in this encounter Visit Diagnoses Diagnosis Chronic kidney disease stage 3 (HCC) documented in this encounter Care Teams News Gathering Technician Relationship Specialty Start Date End Date Sonido Alvarado DO [address] [place] [address] PCP - General Internal Medicine 06/06/18 documented as of this encounter
--- OUTSIDE RECORDS SUMMARY | 2025-04-28 18:27 | XMS_ITS | Continuity of Care Document ---
Author Organization [facility], Rasheed, [facility] ([facility]) Address [address] [place] [address] Assessment No assessment recorded. Plan of Treatment Reminders Order Date Submit Date Provider Last Modified By Organization Details Last Modified Time Details Appointments None record ed. Lab None record ed. Referral None record ed. Procedures None record ed. Surgeries None record ed. Imaging None record ed. Medication Orders None record ed. Patient TargetsNo targets recorded. Patient Instructions Encounter Date Encounter Id Patient Instructions Last Modified By Organization Details Last Modified Time 02/08/2025 [id number] tx with prednisone 20mg x 3 days. [email or web address] Not available 02/08/2025 14:42:00 Reason for Referral None Reported. Problems Name Problem SNOMED Code Status Onset Date Resolution Date Notes Provider Name and Address Organization Details Recorded Time Diabetes mellitus 37121525 Active 2022 [facility] 19:09:29 Rheumatoid arthritis 86667186 Active 2022 [facility] 3 09:36:28 Cough 12449421 Active 2023 [facility] 4 11:40:05 Chronic kidney disease stage 3 861135133 Active 2023 [facility] 4 16:08:01 Amputated above knee 804817740 Active 2023 [facility] 4 16:08:03 Peripheral vascular disease 854184348 Active 2023 ARLETH NIXON [facility] 4 16:08:05 Problem Notes None recorded. Medical Equipment None Reported. Allergies Allergen ID Allergen Name Allergen Category Reaction Reaction Severity Criticality Documentation Date Start Date Code Code System Note Provider Name and Address Organization Details Recorded Time 41603 raspberry extract food,medi cation Not available Not available Not available 11/28/2022 27266 69 RxNorm Ana Duncan [facility] 4 18:17:25 42123 penicilli n V potassium medicatio n Not available Not available Not available 11/28/2022 61915 5 RxNorm Ana Duncan [facility] 4 18:17:22 99128 erythromy monalisa medicatio n Not available Not available Not available 01/24/2024 4053 RxNorm Ana Duncan [facility] 4 18:18:05 77966 raspberry allergeni c extract food,medi cation Not available Not available Not available 04/05/20252021 30657 6 RxNorm Not Available [place] - External Data Service - prod 5 12:52:19 Medications Name Sig Start Date Stop Date Status Note LastModified by Organization Details LastModified Time Prescription - Renewal active Not Available Not Available Not Available silver sulfadiazine 1 % topical cream active Not Available Not Availa ble Not Available albuterol sulfate 0.63 mg/3 mL solution for nebulization active Not Available Not Available Not Available lidocaine HCl 10 mg/mL (1 %) injection solution active Not Available Not Available Not Available nystatin 100,000 unit/mL oral suspension active Not Available Not Availa ble Not Available acetaminophen 325 mg tablet every six hours, as needed active Not Available Not Available No t Available doxycycline hyclate 100 mg capsule active Not Available Not Available Not Available Plaquenil 200 mg tablet daily 2018 active Not Available Not Available Not Avai lable bumetanide 2 mg tablet active Not Available Not Available Not Available clindamycin HCl 300 mg capsule active Not Available Not Availab le Not Available albuterol sulfate 2.5 mg/3 mL (0.083 %) solution for nebulization as needed active Not Available Not Available No t Available atorvastatin 10 mg tablet active Not Available Not Available No t Available amiodarone 200 mg tablet active Not Available Not Available No t Available hydrocodone 5 mg-acetaminophe n 325 mg tablet Take 1 tablet 3 times a day by oral route as needed for 30 days. active Not Available Not Available No t Available ondansetron HCl 8 mg tablet every six hours, as needed active Not Available Not Available No t Available ropinirole 3 mg tablet active Not Available Not Available Not Available metoprolol succinate ER 100 mg tablet,extended release 24 hr active Not Available Not Availabl e Not Available glipizide ER 5 mg tablet, extended release 24 hr active Not Available Not Availabl e Not Available metolazone 5 mg tablet active Not Available Not Available Not Available clindamycin HCl 150 mg capsule active Not Available Not Availab le Not Available ciprofloxacin 250 mg tablet active Not Available Not Availabl e Not Available sulfamethoxazol e 800 mg-trimethoprim 160 mg tablet active Not Available Not Availabl e Not Available olanzapine 2.5 mg tablet active Not Available Not Available No t Available hydrocodone 10 mg-acetaminophe n 325 mg tablet Take 1 tablet every 6 hours by oral route as needed for 30 days. active Not Available Not Available No t Available omeprazole 40 mg capsule,delayed release daily active Not Available Not Available Not Available leflunomide 20 mg tablet active Not Available Not Available No t Available ondansetron 8 mg disintegrating tablet active Not Available Not Available Not Available Dulcolax (bisacodyl) 10 mg rectal suppository as needed 2018 active Not Available Not Available Not Avai lable ceftriaxone 1 gram solution for injection active Not Available Not Availabl e Not Available potassium chloride ER 20 mEq tablet,extended release(part/cr yst) active Not Available Not Available Not Available magnesium oxide 400 mg (241.3 mg magnesium) tablet active Not Available Not Available Not Available trazodone 100 mg tablet active Not Available Not Available No t Available potassium chloride 40 mEq/15 mL oral liquid active Not Available Not Available Not Available hydrocodone 7.5 mg-acetaminophe n 325 mg tablet 1 po tid prn severe pain active Not Available Not Available No t Available ropinirole 2 mg tablet active Not Available Not Available Not Available cephalexin 500 mg capsule active Not Available Not Available N ot Available bumetanide 0.5 mg tablet active Not Available Not Available No t Available omeprazole 20 mg capsule,delayed release active Not Available Not Available Not Available bumetanide 1 mg tablet active Not Available Not Available Not Available nystatin 100,000 unit/gram topical powder active Not Available Not Availab le Not Available ondansetron 4 mg disintegrating tablet active Not Available Not Available Not Available doxycycline hyclate 100 mg tablet active Not Available Not Available Not Available glipizide 5 mg tablet active Not Available Not Available Not Available gentamicin 0.1 % topical ointment active Not Available Not Available Not Available Ventolin HFA 90 mcg/actuation aerosol inhaler active Not Available Not Availa ble Not Available insulin lispro (U-100) 100 unit/mL subcutaneous pen active Not Available Not Available Not Available insulin aspart (U-100) 100 unit/mL (3 mL) subcutaneous pen active Not Available Not Available Not Available melatonin 1 mg tablet active Not Available Not Available Not Available metoprolol tartrate 25 mg tablet active Not Available Not Available Not Available Spiriva with HandiHaler 18 mcg and inhalation capsules daily active Not Available Not Available Not Available nitrofurantoin monohydrate/mac rocrystals 100 mg capsule active Not Available Not Available N ot Available duloxetine 20 mg capsule,delayed release active Not Available Not Available Not Available duloxetine 30 mg capsule,delayed release active Not Available Not Available Not Available OxyContin two times daily 2019 active Not Available Not Available Not Avai lable ferrous sulfate two times daily 2018 active Not Available Not Available Not Avai lable Requip at bedtime 2018 active Not Available Not Available Not Avai lable ipratropium-alb uterol four times daily 2018 active Not Available Not Available Not Avai lable Vitamin D3 weekly 2018 active Not Available Not Available Not Avai lable Fleet Enema as needed 2018 active Not Available Not Available Not Avai lable Pulmicort two times daily 2018 active Not Available Not Available Not Avai lable Novolog U-100 Insulin aspart tid 2022 active recor ded, not sent to pharm acy. Not Available Not Available Not Available Lantus Solostar U-100 Insulin 100 unit/mL (3 mL) subcutaneous pen active Not Available Not Available Not Available diclofenac 1 % topical gel active Not Available Not Available Not Available Eliquis 5 mg tablet active Not Available Not Available Not Available Eliquis 2.5 mg tablet active Not Available Not Available Not Available Veltassa 8.4 gram oral powder packet daily 2018 active Not Available Not Available Not Avai lable Tresiba U-100 Insulin 100 unit/mL subcutaneous solution at bedtime 2022 active recor ded, not sent to pharm acy. Not Available Not Available Not Available Vitals Date Recorded Body height Body mass index (BMI) Body weight Heart rate Respiratory rate Body temperature Oxygen saturation Systolic And Diastolic Provider Name and Address Organization Details Last Updated DateTime 5 152.4 cm 21.1 kg/m2 39680.9 8 g 54 /min 16 /min 97.7 [degF] 95 % 138/60 mm[Hg] ARLETH NIXON [facility], [facility] 5 14:40:14 Social History Question Answer Notes LastModified by Organization D etails LastModified Time Are You Blind Or Do You Have Difficulty Seeing? No [email or web address] Information n ot available 07/28/2022 Are You Deaf Or Do You Have Serious Difficulty Hearing? No [email or web address] Information not available 07/28/2022 Do You Have Difficulty Walking Or Climbing Stairs? Yes Information not available 07/28/2022 Sex: Unknown Functional Status Question Answer Note LastModified by Organizat ion Details LastModified Time Are you able to walk independently without assistance or assistive devices? NOWALK [email or web address] Information not available 07/28/2022 Do you have difficulty doing errands alone? Yes [email or web address] Information not available 07/28/2022 Are you able to care for yourself independently? No [email or web address] Information not available 07/28/2022 Do you have difficulty dressing, bathing, grooming, or toileting? Yes [email or web address] Information not available 07/28/2022 Mental Status Question Answer Note LastModified by Organization D etails LastModified Time Do you have difficulty concentrating, remembering or making decisions? No [email or web address] Information no t available 07/28/2022 Family History Nothing Reported. Medical History No medical history recorded. Gynecological HistoryNo gynecological history recorded. Obstetrics History GPAL:G 0 P 0 0 0 0 Immunizations Vaccine Type Date Status Note Provider Nam e and Address Organization Details Recorded Time COVID-19, mRNA, LNP-S, PF, 100 mcg/0.5mL dose or 50 mcg/0.25mL dose 05/27/2020 [facility] 01/24/2024 18:17:15 COVID-19, mRNA, LNP-S, PF, 100 mcg/0.5mL dose or 50 mcg/0.25mL dose 10/27/2021 completed [facility] 01/24/2024 18:17:15 COVID-19, mRNA, LNP-S, PF, 100 mcg/0.5mL dose or 50 mcg/0.25mL dose 03/21/2021 completed [facility] 01/24/2024 18:17:15 COVID-19, mRNA, LNP-S, PF, 100 mcg/0.5mL dose or 50 mcg/0.25mL dose 04/30/2020 completed [facility] 01/24/2024 18:17:15 COVID-19, mRNA, LNP-S, bivalent, PF, 50 mcg/0.5 mL or 25mcg/0.25 mL dose 03/19/2022 completed [facility] 01/24/2024 18:17:15 COVID-19, mRNA, LNP-S, PF, jeff-sucrose, 30 mcg/0.3 mL 05/04/2023 completed Not Available [facility] 2024 18:32:36 COVID-19, mRNA, LNP-S, PF, jeff-sucrose, 30 mcg/0.3 mL 09/02/2023 completed Not Available [facility] 2024 18:32:36 COVID-19, mRNA, LNP-S, PF, jeff-sucrose, 30 mcg/0.3 mL 03/01/2024 completed Not Available [facility] 2024 18:32:36 COVID-19, mRNA, LNP-S, PF, 50 mcg/0.5 mL 02/15/2025 completed Not Available [facility] 18:32:36 Past Encounters Encounter ID Performer Location Encounter Start Date Encounter Closed Date Diagnosis/Indication Diagnosis SNOMED-CT Code Diagnosis ICD10 Code Diagnosis IMO Codes Diagnosis Note [id number] Sonido Alvarado DO [facility] ([facility]) [address] [place] [address] 01/11/2025 12:13:02 01/16/2025 10:40:00 Diabetes mellitus 08845402 E11.9 Rheumatoid arthritis 698 48686 M06.9 Chronic ki dney disease stage 3 444723911 N18.30 [id number] Sonido Alvarado DO [facility] ([facility]) [address] [place] [address] 02/08/2025 14:26:42 02/13/2025 12:27:18 Bronchitis 49391746 J40 23216 Health Concerns Section Related Observation LastModified by Organization Detai ls LastModified Time None Recorded Concern Status LastModified by Organization Details LastModified Time None Recorded Payers Encounter Date Sequence Insurance Name Policy Number Policy Chowdary Covered Member ID Chowdary Member ID Guarantor Name 02/08/2025 1 [place] Mer Alfaro [id number] Mer Alfaro Notes Date Note Type Note Provider Name and Address Organization Details Recorded Time 02/08/2025 text/html CoughReported by PatientHPIFor quality, patient reportsdry. For severity, patient reportsmoderate. For duration, patient reportsacute (<3 weeks).ROS as noted in the HPI c/o acute cough. Sonido Alvarado DO [address] [place] [address], [address], [facility] 02/11/2025 17:14:18 OBGyn Episode No OBEpisode recorded.
--- OUTSIDE RECORDS SUMMARY | 2025-04-28 18:27 | XMS_ITS | Continuity of Care Document ---
Author Organization [facility] Ade, Rasheed, [facility] ([facility]) Address [address] [place] [address] Assessment No assessment recorded. Plan of Treatment [...] Modified By Organization Details Last Modified Time 04/05/2025 [id number] Doing well, sugars good. Doing better emotionally. [email or web address] Not available 04/05/2025 14:15:55 Reason for Referral None Reported. Problems Name Problem SNOMED Code Status Onset Date Resolution Date Notes Provider Name and Address Organization Details Recorded Time Diabetes mellitus 63259868 [facility] 19:09:29 Rheumatoid arthritis 39158283 [facility] 09:36:28 Cough 40625976 [facility] 11:40:05 Chronic kidney disease stage 3 010597800 [facility] 2023 [facility] 16:08:01 Amputated above knee 906685421 [facility] 16:08:03 Peripheral vascular disease 725516836 Active 2023 ARLETH NIXON [facility] 4 16:08:05 Problem Notes None recorded. Medical Equipment None Reported. Allergies Allergen ID Allergen Name Allergen Category Reaction Reaction Severity Criticality Documentation Date Start Date Code Code System Note Provider Name and Address Organization Details Recorded Time 89614 raspberry extract food,medi cation Not available Not available Not available 11/28/2022 58285 69 RxNorm Ana Duncan [facility] 4 18:17:25 69320 penicilli n V potassium medicatio n Not available Not available Not available 11/28/2022 48978 5 RxNorm Ana Duncan [facility] 4 18:17:22 88274 erythromy monalisa medicatio n Not available Not available Not available 01/24/2024 4053 RxNorm Ana Duncan [facility] 4 18:18:05 50987 raspberry allergeni c extract food,medi cation Not available Not available Not available 04/05/20252021 00753 6 RxNorm Not Available [place] - External Data Service - prod 5 [...] Updated DateTime 5 152.4 cm 21.1 kg/m2 80617.9 8 g 69 /min 18 /min 97.7 [degF] 93 % 107/59 mm[Hg] ARLETH NIXON [facility] 5 14:14:10 Social History Question Answer Notes LastModified by Organization D etails LastModified Time Are You Blind Or Do You Have Difficulty Seeing? No [email or web address] Information n ot available 07/28/2022 Are You Deaf Or Do You Have Serious Difficulty Hearing? No [email or web address] Information not available 07/28/2022 Do You Have Difficulty Walking Or Climbing Stairs? Yes [email or web address] Information not available 07/28/2022 Sex: Unknown Functional Status Question Answer Note LastModified by Organizat ion Details LastModified Time Are you able to walk independently without assistance or assistive devices? NOWALK [email or web address] Information not available 07/28/2022 Do you have difficulty doing errands alone? Yes [email or web address] Information not available 07/28/2022 Are you able to care for yourself independently? No [email or web address] Information not available 07/28/2022 Do you have difficulty dressing, bathing, grooming, or toileting? Yes [email or web address] Information not available 07/28/2022 Mental Status Question Answer Note LastModified by Organization D etails LastModified Time Do you have difficulty concentrating, remembering or making decisions? No [email or web address] Information no t available 07/28/2022 Family History Nothing Reported. Medical History No medical history recorded. Gynecological HistoryNo gynecological history recorded. Obstetrics History GPAL:G 0 P 0 0 0 0 Immunizations Vaccine Type Date Status Note Provider Nam e and Address Organization Details Recorded Time COVID-19, mRNA, LNP-S, PF, 100 mcg/0.5mL dose or 50 mcg/0.25mL dose [facility] [facility] 01/24/2024 18:17:15 COVID-19, mRNA, LNP-S, PF, 100 mcg/0.5mL dose or 50 mcg/0.25mL dose 10/27/2021 completed [facility] 01/24/2024 18:17:15 COVID-19, mRNA, LNP-S, PF, 100 mcg/0.5mL dose or 50 mcg/0.25mL dose 03/21/2021 completed [facility] 01/24/2024 18:17:15 COVID-19, mRNA, LNP-S, PF, 100 mcg/0.5mL dose or 50 mcg/0.25mL dose 04/30/2020 completed [facility] 01/24/2024 18:17:15 COVID-19, mRNA, LNP-S, bivalent, PF, 50 mcg/0.5 mL or 25mcg/0.25 mL dose 03/19/2022 completed [facility] 01/24/2024 18:17:15 COVID-19, mRNA, LNP-S, PF, jeff-sucrose, 30 mcg/0.3 mL 05/04/2023 completed Not Available [facility] 2024 18:32:36 COVID-19, mRNA, LNP-S, PF, jeff-sucrose, 30 mcg/0.3 mL 09/02/2023 completed Not Available [facility] 2024 18:32:36 COVID-19, mRNA, LNP-S, PF, jeff-sucrose, 30 mcg/0.3 mL 03/01/2024 completed Not Available [facility] 2024 18:32:36 COVID-19, mRNA, LNP-S, PF, 50 mcg/0.5 mL 02/15/2025 completed [facility] 18:32:36 Past Encounters Encounter ID Performer Location Encounter Start Date Encounter Closed Date Diagnosis/Indication Diagnosis SNOMED-CT Code Diagnosis ICD10 Code Diagnosis IMO Codes Diagnosis Note [id number] Sonido Alvarado DO [facility] ([facility]) [address] [place] [address] 04/05/2025 12:20:21 04/12/2025 12:28:06 Amputated above knee 077901176 Z89.619 left Peripheral vascular disease 029681358 I73.9 Chronic ki dney disease stage 3 351523603 N18.30 Rheumatoid arthritis 698 94603 M06.9 Diabetes mellitus 396207 09 E11.9 Health Concerns Section Related Observation LastModified by Organization Detai ls LastModified Time None Recorded Concern Status LastModified by Organization Details LastModified Time None Recorded Payers Encounter Date Sequence Insurance Name Policy Number Policy Chowdary Covered Member ID Chowdary Member ID Guarantor Name 04/05/2025 1 [place] Mer Alfaro [id number] Mer Alfaro Notes Date Note Type Note Provider Name and Address Organization Details Recorded Time 04/05/2025 text/html Abdominal PainRe ported by PatientAbdominal PainFor quality, patient reportsaching. For associated symptoms, patient reportsnausea. For location, patient reportsgeneralized. For severity, patient reportsmild. For onset/timing, patient reportsacute.ROS as noted in the HPI no complaints per staff or patient. Sonido Alvarado DO [address] [place] [address], [phone], [facility], Rasheed 04/11/2025 18:15:31 OBGyn Episode No OBEpisode recorded.
--- OUTSIDE RECORDS SUMMARY | 2025-04-28 18:27 | XMS_ITS | Data Portability ---
Author Organization [facility] Rasheed Booker, [facility] Address [address] [place] [id number] Assessment No assessment recorded. Plan of Treatment [...] Modified By Organization Details Last Modified Time 01/11/2025 [id number] Sugars too high, start tresiba 6 units at hs. [email or web address] Not available 01/11/2025 14:30:52 02/08/2025 [id number] tx with prednisone 20mg x 3 days. [email or web address] Not available 02/08/2025 14:42:00 04/05/2025 [id number] Doing well, sugars good. Doing better emotionally. [email or web address] Not available 04/05/2025 14:15:55 Reason for Referral None Reported. Problems Name Problem SNOMED Code Status Onset Date Resolution Date Notes Provider Name and Address Organization Details Recorded Time Diabetes mellitus 61403552 [facility] 2022 [facility] 19:09:29 Rheumatoid arthritis 64382291 Active 2022 [facility] 09:36:28 Cough 06516680 Active 2023 [facility] 11:40:05 Chronic kidney disease stage 3 751807095 Active 2023 [facility] 16:08:01 Amputated above knee 125159673 [facility] 16:08:03 Peripheral vascular disease 422811054 Active 2023 [facility] 16:08:05 Problem Notes None recorded. Medical Equipment None Reported. Allergies Allergen ID Allergen Name Allergen Category Reaction Reaction Severity Criticality Documentation Date Start Date Code Code System Note Provider Name and Address Organization Details Recorded Time 48897 raspberry extract food,medi cation Not available Not available Not available 11/28/2022 43916 69 RxNorm Ana kameron [facility] 4 18:17:25 88635 penicilli n V potassium medicatio n Not available Not available Not available 11/28/2022 37946 5 RxNorm [facility] 4 18:17:22 18310 erythromy monalisa medicatio n Not available Not available Not available 01/24/2024 4053 RxNorm Ana [facility] 4 18:18:05 33556 raspberry allergeni c extract food,medi cation Not available Not available Not available 04/05/20252021 96678 6 RxNorm Not Available tarik - External Data Service - prod 5 [...] Details Last Updated DateTime 5 152.4 cm 21.3 kg/m2 33756.5 7 g 54 /min 15 /min 96.9 [degF] 97 % 151/77 mm[Hg] [facility] 5 14:29:12 Date Recorded Body height Body mass index (BMI) Body weight Heart rate Respiratory rate Body temperature Oxygen saturation Systolic And Diastolic Provider Name and Address Organization Details Last Updated DateTime 5 152.4 cm 21.1 kg/m2 28699.9 8 g 54 /min 16 /min 97.7 [degF] 95 % 138/60 mm[Hg] [facility] 5 14:40:14 Date Recorded Body height Body mass index (BMI) Body weight Heart rate Respiratory rate Body temperature Oxygen saturation Systolic And Diastolic Provider Name and Address Organization Details Last Updated DateTime 5 152.4 cm 21.1 kg/m2 06002.9 8 g 69 /min 18 /min 97.7 [degF] 93 % 107/59 mm[Hg] ARLETH NIXON [facility] 5 14:14:10 Date Recorded Body height Body mass index (BMI) Body weight Heart rate Respiratory rate Body temperature Oxygen saturation Systolic And Diastolic Provider Name and Address Organization Details Last Updated DateTime 5 152.4 cm 20.3 kg/m2 47706.6 1 g 49 /min 16 /min 97.9 [degF] 95 % 104/60 mm[Hg] ARLETH NIXON [facility] 5 15:13:19 Social History Question Answer Notes LastModified by Organization D etails LastModified Time Are You Blind Or Do You Have Difficulty Seeing? No [email or web address] Information n ot available 07/28/2022 Are You Deaf Or Do You Have Serious Difficulty Hearing? No [email or web address] Information not available 07/28/2022 Do You Have Difficulty Walking Or Climbing Stairs? Yes Information not available 07/28/2022 Sex: Unknown Functional Status Question Answer Note LastModified by Organizat ion Details LastModified Time Are you able to walk independently without assistance or assistive devices? NOWALK [email or web address] Information not available 07/28/2022 Do you have difficulty doing errands alone? Yes [email or web address] Information not available 07/28/2022 Are you able to care for yourself independently? No [email or web address] Information not available 07/28/2022 Do you have difficulty dressing, bathing, grooming, or toileting? Yes [email or web address] Information not available 07/28/2022 Mental Status Question Answer Note LastModified by Organization D etails LastModified Time Do you have difficulty concentrating, remembering or making decisions? No [email or web address] Information no t available 07/28/2022 Family History Nothing Reported. Medical History No medical history recorded. Gynecological HistoryNo gynecological history recorded. Obstetrics History GPAL:G 0 P 0 0 0 0 Immunizations Vaccine Type Date Status Note Provider Nam e and Address Organization Details Recorded Time COVID-19, mRNA, LNP-S, PF, 100 mcg/0.5mL dose or 50 mcg/0.25mL dose 05/27/2020 completed Ana miller [facility] 01/24/2024 18:17:15 COVID-19, mRNA, LNP-S, PF, 100 mcg/0.5mL dose or 50 mcg/0.25mL dose 10/27/2021 completed Ana [facility] 01/24/2024 18:17:15 COVID-19, mRNA, LNP-S, PF, 100 mcg/0.5mL dose or 50 mcg/0.25mL dose 03/21/2021 completed Ana [facility] 01/24/2024 18:17:15 COVID-19, mRNA, LNP-S, PF, 100 mcg/0.5mL dose or 50 mcg/0.25mL dose 04/30/2020 completed Ana [facility] 01/24/2024 18:17:15 COVID-19, mRNA, LNP-S, bivalent, PF, 50 mcg/0.5 mL or 25mcg/0.25 mL dose 03/19/2022 [facility] 01/24/2024 18:17:15 COVID-19, mRNA, LNP-S, PF, jeff-sucrose, 30 mcg/0.3 mL 05/04/2023 completed Not Available [facility] 2024 18:32:36 COVID-19, mRNA, LNP-S, PF, jeff-sucrose, 30 mcg/0.3 mL 09/02/2023 completed Not Available [facility] 2024 18:32:36 COVID-19, mRNA, LNP-S, PF, jeff-sucrose, 30 mcg/0.3 mL 03/01/2024 completed Not Available [facility] 2024 18:32:36 COVID-19, mRNA, LNP-S, PF, 50 mcg/0.5 mL 02/15/2025 completed Not Available [facility] 18:32:36 Past Encounters Encounter ID Performer Location Encounter Start Date Encounter Closed Date Diagnosis/Indication Diagnosis SNOMED-CT Code Diagnosis ICD10 Code Diagnosis IMO Codes Diagnosis Note [id number] Sonido Alvarado DO [facility] [address] [phone] 07/21/2022 10:00:22 07/29/2022 10:34:05 Diabetes mellitus 75307499 E11.9 [id number] Sonido Alvarado DO [facility] [address] [phone] 5 07/28/2022 09:28:51 07/30/2022 18:03:13 Diabetes mellitus 89459514 E11.9 Anxiety 06953721 F41.9 [id number] Sonido Alvarado DO [facility] [address] [phone] 08/04/2022 09:05:24 08/11/2022 22:13:57 Diabetes mellitus 79185688 E11.9 [id number] Sonido Alvarado DO [facility] [address] [phone] 10/20/2022 08:20:34 10/29/2022 09:50:33 Rheumatoid arthritis 50663218 M06.9 Diabetes mellitus 219399 09 E11.9 [id number] Sonido Alvarado DO [facility] [address] [place] [address] 12/24/2022 09:15:46 01/01/2023 08:02:09 Rheumatoid arthritis 41230278 M06.9 Diabetes mellitus 554382 09 E11.9 [id number] Sonido Alvarado DO [facility] [address] [place] [address] 01/07/2023 10:31:14 01/15/2023 18:09:13 Rheumatoid arthritis 31272247 M06.9 Diabetes mellitus 393151 09 E11.9 [id number] Sonido Alvarado DO [facility] [address] [place] [address] 02/02/2023 09:04:26 02/10/2023 20:05:15 Diabetes mellitus 98820412 E11.9 Rheumatoid arthritis 698 18797 M06.9 [id number] Sonido Alvarado DO [facility] [address] [place] [address] 04/01/2023 08:24:35 04/06/2023 10:24:12 Rheumatoid arthritis 86525197 M06.9 Diabetes mellitus 777771 09 E11.9 [id number] Sonido Alvarado DO [facility] [address] [phone] 5 04/20/2023 08:56:24 05/09/2023 20:21:12 Diabetes mellitus 81414381 E11.9 Rheumatoid arthritis 698 73019 M06.9 [id number] Sonido Alvarado DO [facility] [address] [phone] 05/13/2023 08:21:04 05/17/2023 09:45:33 Rheumatoid arthritis 14355121 M06.9 Diabetes mellitus 381340 09 E11.9 [id number] Sonido Alvarado DO [facility] [address] [place] [address] 06/01/2023 08:40:52 06/15/2023 08:07:35 Rheumatoid arthritis 17519054 M06.9 Diabetes mellitus 658369 09 E11.9 [id number] Sonido Alvarado DO [facility] [address] [place] [address] 06/15/2023 08:12:15 06/15/2023 17:50:51 [id number] Sonido Alvarado DO [facility] [address] [place] [address] 07/01/2023 08:10:00 07/01/2023 13:52:21 Diabetes mellitus 34182858 E11.9 Rheumatoid arthritis 698 02339 M06.9 [id number] Sonido Alvarado DO [facility] [address] [place] [address] 07/29/2023 08:24:07 08/03/2023 10:31:14 Diabetes mellitus 01260351 E11.9 Rheumatoid arthritis 698 39357 M06.9 [id number] Sonido Alvarado DO [facility] [address] [place] [address] 08/19/2023 08:10:26 08/30/2023 10:40:58 Diabetes mellitus 88120902 E11.9 Rheumatoid arthritis 698 81303 M06.9 [id number] Sonido DO Christiano [facility] [address] [place] [address] 09/09/2023 08:00:33 09/13/2023 09:03:28 [id number] Sonido DO [facility] [address] [place] [address] 09/16/2023 09:29:42 09/16/2023 17:18:36 Cough 93131960 R05.9 [id number] Sonido DO [facility] [address] [place] [address] 09/28/2023 15:38:01 10/02/2023 21:55:18 Hospital inpatient stay within past 30 days 7211982678 106 Z76.89 Peripheral vascular disease 572737542 I73.9 Amputated above knee 299 164215 Z89.619 left Diabetes mellitus 744697 09 E11.9 Rheumatoid arthritis 698 91495 M06.9 Chronic ki dney disease stage 3 978368917 N18.30 [id number] Sonido DO [facility]o [facility] [address] [place] [address] 10/12/2023 10:44:38 10/14/2023 12:52:04 Amputated above knee 251983664 Z89.619 left Chronic ki dney disease stage 3 662741442 N18.30 Peripheral vascular disease 582513723 I73.9 [id number] LETICIA SOLIMAN PA-C [facility] [address] [place] [address] 10/20/2023 12:47:45 11/08/2023 06:57:10 Peripheral vascular disease 984820132 I73.9 right leg Post-disch arge follow-up 064662669 Z09 Amputated above knee 299 482331 Z89.619 will follow with surgeon in [place].contin ue with dressing changes as ordered. [id number] LETICIA SOLIMAN PA-C [facility] [address] [place] [address] 11/03/2023 14:28:30 11/23/2023 16:54:52 Amputated above knee 784011146 Z89.619 WOUND CARE wont see pt due due her still under care of surgeon.SE HIDALGO SURGEON NEXT WEEK. continue with AUgmentin BID and packing orders. Dehiscence of surgical wound 62475090 T81.30XD [id number] Sonido Alvarado DO [facility] [address] [place] [address] 11/25/2023 10:34:31 11/25/2023 15:51:57 Amputated above knee 264673839 Z89.619 left Peripheral vascular disease 979228263 I73.9 Chronic ki dney disease stage 3 141027878 N18.30 [id number] Sonido Alvarado DO [facility] [address] [place] [address] 12/09/2023 08:46:51 12/10/2023 16:36:56 Peripheral vascular disease 863832028 I73.9 Amputated above knee 299 692190 Z89.619 left Dysuria 30348232 R30.0 [id number] Sonido Alvarado DO [facility] [address] [place] [address] 12/30/2023 09:43:59 12/30/2023 16:31:20 Chronic kidney disease stage 3 527567395 N18.30 Amputated above knee 299 521527 Z89.619 left Peripheral vascular disease 387513549 I73.9 Diabetes mellitus 152466 09 E11.9 [id number] Sonido Alvarado DO [facility] [address] [place] [address] 01/18/2024 08:32:22 01/19/2024 09:04:34 [id number] Sonido Alvarado DO [facility] [address] [place] [address] 02/10/2024 08:12:05 02/10/2024 16:33:40 Amputated above knee 791665523 Z89.619 left Peripheral vascular disease 701326844 I73.9 Chronic ki dney disease stage 3 357001059 N18.30 [id number] Sonido Alvarado DO [facility] [address] [place] [address] 5 02/29/2024 08:31:53 02/29/2024 16:17:22 Amputated above knee 531379223 Z89.619 left Chronic ki dney disease stage 3 068861646 N18.30 Diabetes mellitus 688233 09 E11.9 [id number] Sonido Alvarado DO [facility] [address] [place] [address] 5 03/28/2024 08:06:52 04/01/2024 08:25:56 Amputated above knee 343704149 Z89.619 left Chronic ki dney disease stage 3 314622624 N18.30 [id number] Sonido Alvarado DO [facility] [address] [place] [address] 5 04/20/2024 08:18:47 04/24/2024 13:22:01 Amputated above knee 913534852 Z89.619 left Peripheral vascular disease 156592978 I73.9 Chronic ki dney disease stage 3 899849917 N18.30 [id number] Sonido Alvarado DO [facility] [address] [place], [place] [address] 05/08/2024 12:42:14 05/10/2024 09:15:04 Amputated above knee 760307432 Z89.619 left Peripheral vascular disease 636789620 I73.9 Chronic ki dney disease stage 3 589509657 N18.30 Pain of ri ght shoulder joint 4225047733 1809638 M25.544 [id number] Snoido Alvarado DO [facility] [address] [place], [place] [address] 06/05/2024 08:26:03 06/06/2024 11:26:40 Dysuria 35260943 R30.0 Amputated above knee 299 849153 Z89.619 left Chronic ki dney disease stage 3 353677995 N18.30 [id number] Sonido Alvarado DO [facility] [address] [place] [address] 5 06/22/2024 13:35:46 06/27/2024 11:41:54 Chronic kidney disease stage 3 668430436 N18.30 Cough 93040098 R05.9 [id number] Sonido Alvarado DO [facility] [address] [place] [address] 5 06/26/2024 14:23:06 06/28/2024 06:19:35 Amputated above knee 144773679 Z89.619 left Chronic ki dney disease stage 3 904552804 N18.30 Peripheral vascular disease 824914697 I73.9 [id number] Sonido Alvarado DO [facility] [address] [place] [address] 5 07/03/2024 14:44:46 07/07/2024 06:31:37 Peripheral vascular disease 986314270 I73.9 Chronic ki dney disease stage 3 493517335 N18.30 Amputated above knee 299 002595 Z89.619 left [id number] Sonido Alvarado DO [facility] [address] [place] [address] 5 07/24/2024 08:03:52 07/25/2024 06:46:38 Peripheral vascular disease 765182897 I73.9 Chronic ki dney disease stage 3 677338100 N18.30 Diabetes mellitus 304338 09 E11.9 [id number] Sonido Alvarado DO [facility] [address] [place] [address] 5 07/27/2024 09:31:06 08/01/2024 07:12:00 Amputated above knee 548181776 Z89.619 left Peripheral vascular disease 589203426 I73.9 Chronic ki dney disease stage 3 192940966 N18.30 Diabetes mellitus 766808 09 E11.9 [id number] Sonido Alvarado DO [facility] [address] [place] [address] 5 07/31/2024 13:49:48 08/01/2024 07:52:17 Amputated above knee 746617121 Z89.619 left Chronic ki dney disease stage 3 736172989 N18.30 Diabetes mellitus 583297 09 E11.9 [id number] Sonido Alvarado DO [facility] [address] [place] [address] 08/17/2024 09:32:07 08/21/2024 04:42:53 Amputated above knee 288314659 Z89.619 left Peripheral vascular disease 081123528 I73.9 Chronic ki dney disease stage 3 247059062 N18.30 [id number] Sonido Alvarado DO [facility] [address] [place] [address] 08/31/2024 08:16:23 09/03/2024 20:30:45 Amputated above knee 516159383 Z89.619 left Peripheral vascular disease 927096778 I73.9 Chronic ki dney disease stage 3 729385622 N18.30 Diabetes mellitus 711799 09 E11.9 [id number] Sonido Alvarado DO [facility] [address] [place] [address] 10/26/2024 08:02:12 10/31/2024 14:48:42 Chronic kidney disease stage 3 721331077 N18.30 Abdominal pain 42053853 R10.9 Amputated above knee 299 771447 Z89.619 left [id number] Sonido Alvarado DO [facility] [address] [place] [address] 5 11/16/2024 09:27:44 11/21/2024 09:38:31 Amputated above knee 977706991 Z89.619 left Peripheral vascular disease 359098481 I73.9 Chronic ki dney disease stage 3 793489223 N18.30 [id number] Sonido Alvarado DO [facility] [address] [place] [address] 5 12/07/2024 09:18:43 12/12/2024 15:51:13 Amputated above knee 349715001 Z89.619 left Peripheral vascular disease 924074026 I73.9 Chronic ki dney disease stage 3 198603234 N18.30 [id number] Sonido Alvarado DO [facility] [address] [place] [address] 01/11/2025 12:13:02 01/16/2025 10:40:00 Diabetes mellitus 37841040 E11.9 Rheumatoid arthritis 698 37896 M06.9 Chronic ki dney disease stage 3 203363345 N18.30 [id number] Sonido Alvarado DO [facility] [address] [place] [address] 02/08/2025 14:26:42 02/13/2025 12:27:18 [facility] 77247992 [id number] Sonido Alvarado DO [facility] [address] [place] [address] 04/05/2025 12:20:21 04/12/2025 12:28:06 Amputated above knee 262443976 Z89.619 left Peripheral vascular disease 172991208 I73.9 Chronic ki dney disease stage 3 010599820 N18.30 Rheumatoid arthritis 698 47874 M06.9 Diabetes mellitus 186850 09 E11.9 Health Concerns Section Related Observation LastModified by Organization Detai ls LastModified Time None Recorded Concern Status LastModified by Organization Details LastModified Time None Recorded Advance Directives Directive None Recorded Payers Insurance Date Sequence Insurance Name Policy Number Policy Chowdary Covered Member ID Chowdary Member ID Guarantor Name 04/05/2025 1 [place] Mer Alfaro [id number] Mer Alfaro 04/05/2025 [place] [facility] [place] Mer Alfaro [id number] Mer Alfaro Notes Date Note Type Note Provider Name and Address Organization Details Recorded Time 01/11/2025 text/html Abdominal PainReported by PatientAbdominal PainFor quality, patient reportsaching. For associated symptoms, patient reportsnausea. For location, patient reportsgeneralized. For severity, patient reportsmild. For onset/timing, patient reportsacute.ROS as noted in the HPI staff concerned about blood sugars. Sonido Alvarado DO [address] [place] [address], [phone], [facility] 01/15/2025 12:13:09 02/08/2025 text/html CoughReported by PatientHPIFor quality, patient reportsdry. For severity, patient reportsmoderate. For duration, patient reportsacute (<3 weeks).ROS as noted in the HPI c/o acute cough. Sonido Alvarado DO [address] [place] [address], [phone], [facility] 02/11/2025 17:14:18 04/05/2025 text/html Abdominal PainReported by PatientAbdominal PainFor quality, patient reportsaching. For associated symptoms, patient reportsnausea. For location, patient reportsgeneralized. For severity, patient reportsmild. For onset/timing, patient reportsacute.ROS as noted in the HPI no complaints per staff or patient. Sonido Alvarado DO [address] [place] [address], [phone], [facility] 04/11/2025 18:15:31 04/12/2025 text/html DiabetesReported by CaregiverHPIFor duration, caregiver reportschronic. For control, caregiver reportsimproved since last visit. For compliance, caregiver reportscompliant with follow-up visits.ROS as noted in the HPI no complaints per staff or patient. Not Available Not Available Not Available OBGyn Episode No OBEpisode recorded.
--- NOTE | 2025-04-28 18:32 | W.ED.FALL ---
HPI - Fall General: Chief Complaint: Fall Stated Complaint: head and foot pain s/p fall History of Present Illness: 74-year-old female who presents to the emergency room [facility] She is on oral anticoagulants. Patient has a large hematoma over the right eye with an abrasion just inside the hairline on the right of the midline of the forehead. No laceration there is no loss consciousness no vomiting. She is also complaining of right ankle pain. 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 Associated symptoms-after fall: Denies abdominal pain, chest pain or neck pain Related Data Home Medications ?Medication ?Instructions ?Recorded ?Confirmed bisacodyl 10 mg rectal suppository 10 mg IN DAILY PRN Constipation 09/18/23 12/05/24 bisacodyl 5 mg tablet 5 mg PO DAILY PRN Constipation 09/18/23 12/05/24 carboxymethylcellulose sodium 1 % 1 drp ophthalmic (eye) BID 09/18/23 12/05/24 eye liquid gel drops (Refresh Liquigel) hydrocodone 5 mg-acetaminophen 325 1 tab PO TID PRN Pain 09/18/23 12/05/24 mg tablet magnesium oxide 400 mg PO DAILY 09/18/23 12/05/24 naloxone 0.4 mg/mL injection 0.4 mg SUBCUT Q3M PRN Opioid 09/18/23 12/05/24 solution Overdose white petrolatum-mineral oil 57.3 1 applic ophthalmic (eye) BEDTIME 09/18/23 12/05/24 %-42.5 % eye ointment (Lubricant Eye) acetaminophen 500 mg tablet 1,000 mg PO Q6H PRN Pain 12/05/24 12/05/24 amiodarone 100 mg tablet 100 mg PO DAILY 12/05/24 12/05/24 apixaban 5 mg tablet (Eliquis) 5 mg PO BID 12/05/24 12/05/24 bumetanide 0.5 mg tablet 0.5 mg PO DAILY 12/05/24 12/05/24 cadexomer iodine 0.9 % topical gel See Rx Instructions .Route .COMPLEX 12/05/24 12/05/24 (Iodosorb) metoprolol tartrate 25 mg tablet 25 mg PO BID 12/05/24 12/05/24 nystatin 100,000 unit/gram topical See Rx Instructions .Route .COMPLEX 12/05/24 12/05/24 cream nystatin 100,000 unit/gram topical See Rx Instructions .Route .COMPLEX 12/05/24 12/05/24 powder ([facility]) omeprazole 40 mg capsule,delayed 40 mg PO BID 12/05/24 12/05/24 release ondansetron 4 mg disintegrating 4 mg PO Q6H PRN Nausea And Vomiting 12/05/24 12/05/24 tablet sertraline 50 mg tablet 50 mg PO BEDTIME 12/05/24 12/05/24 Allergies Allergy/AdvReac Type Severity Reaction Status Date / Time erythromycin base Allergy Unknown Verified 01/14/23 13:08 Penicillins Allergy Unknown Verified 01/14/23 13:08 Review of Systems Const: Denies: fever(s) or chills Card: Denies: chest pain Resp: Denies: dyspnea GI: Denies: abdominal pain : Denies: dysuria, urinary frequency or urinary urgency Musc: Denies: neck pain or back pain Skin/Breast: Denies: rash PFSH ED PFSH: Medical History History of COPD Restless leg syndrome Immunization counseling High risk medication use Ulcers of both lower extremities Seropositive rheumatoid arthritis of multiple sites Chronic ulcer of lower extremity Rheumatoid arthritis Diabetes Renal insufficiency CAD (coronary artery disease) Atrial fibrillation CHF (congestive heart failure) Obstructive sleep apnea Anemia Pulmonary edema Surgical History S/P coronary artery stent placement S/P tonsillectomy S/P appendectomy Family History Other Cancer Heart disease Social History Smoking and tobacco/nicotine status: never used tobacco/nicotine Alcohol intake: never Substance/Drug Use: never Physical Exam Const: GENERAL APPEARANCE: cooperative and comfortable ORIENTATION/CONSCIOUSNESS: Yes awake HENMT: COMMON NORMALS: normocephalic and hearing grossly normal bilaterally HEAD & SCALP: normocephalic Resp: COMMON NORMALS: normal respiratory effort, No retractions, No use of accessory muscles and clear to auscultation bilaterally AUSCULTATION: clear to auscultation bilaterally Cardio: COMMON NORMALS: regular rate, regular rhythm and No murmurs present (Cardio) RATE: regular rate RHYTHM: regular rhythm GI: COMMON NORMALS: Soft to palpation and No hepatosplenomegaly present AUSCULTATION: Yes normoactive bowel sounds PALPATION: Yes Soft to palpation, No Tenderness to palpation present (GI), No Guarding due to palpation present (GI) and Yes No hepatosplenomegaly present Extremity: COMMON NORMALS: normal to inspection, capillary refill normal, no clubbing, cyanosis or edema, no calf tenderness and no pedal edema Skin: COMMON NORMALS: no rashes or lesions noted GENERAL SKIN EXAM: no rashes or lesions noted Course Vital Signs: Vital signs: Vital Signs Temperature 98.8 F 04/28/25 18:16 Pulse Rate 58 L 04/28/25 21:18 Respiratory Rate 18 04/28/25 18:16 Blood Pressure 128/98 04/28/25 21:18 Pulse Oximetry 92 04/28/25 21:18 Oxygen Delivery Me thod Room Air 04/28/25 20:00 MDM - Fall Medical Decision Making Labs and imaging reviewed. CT head and CT neck unremarkable no acute intracranial hemorrhage. CT cervical spine no acute fracture dislocation or abnormality left ankle x-ray no acute abnormality no fracture. Discharge patient home continue routine cares at the [facility]. The abrasion does not require any sutures can apply topical antibiotic ointment follow-up as needed. Medical Records I reviewed the patient's medical records. Lab Data Radiology Impressions Cervical Spine CT 04/28/25 18:18 IMPRESSION: No acute fracture. Head CT 04/28/25 18:18 IMPRESSION: No acute infarct, mass effect or intracranial hemorrhage. Ankle X-Ray 04/28/25 18:21 IMPRESSION: No acute fracture. All radiology interpretation(s) finalized by discharge Discharge Plan Discharge Patient Disposition: Home Clinical Impression: Fall, Traumatic hematoma of head Condition: Stable Prescriptions: No Action hydrocodone-acetaminophen 5-325 mg tablet 1 tab PO TID PRN (Reason: Pain) naloxone 0.4 mg/mL Solution 0.4 mg SUBCUT Q3M PRN (Reason: Opioid Overdose) Rx Instructions: NTExceed 10 mg total dose/episode bisacodyl 10 mg Suppository 10 mg IN DAILY PRN (Reason: Constipation) carboxymethylcellulose sodium [Refresh Liquigel] 1 % Drops, Liquid Gel 1 drp OPHTHALMIC (EYE) BID Lubricant Eye 57.3-42.5 % Ointment 1 applic OPHTHALMIC (EYE) BEDTIME magnesium oxide 400 mg magnesium Tablet 400 mg PO DAILY bisacodyl 5 mg Tablet 5 mg PO DAILY PRN (Reason: Constipation) Iodosorb 0.9 % Gel See Rx Instructions .ROUTE .COMPLEX Rx Instructions: Cleanse with Ns and gauze, apply gel to wound bed and cover with bordered foam dressing every shift. omeprazole 40 mg capsule,delayed release(DR/EC) 40 mg PO BID acetaminophen 500 mg tablet 1,000 mg PO Q6H PRN (Reason: Pain) bumetanide 0.5 mg tablet 0.5 mg PO DAILY nystatin 100,000 unit/gram cream See Rx Instructions .ROUTE .COMPLEX Rx Instructions: Apply once per shift under both breasts and abdominal folds until healed. nystatin [Nyamyc] 100,000 unit/gram powder See Rx Instructions .ROUTE .COMPLEX Rx Instructions: Apply to skin forlds and affected areas twice daily as needed. ondansetron 4 mg tablet,disintegrating 4 mg PO Q6H PRN (Reason: Nausea And Vomiting) sertraline 50 mg tablet 50 mg PO BEDTIME amiodarone 100 mg tablet 100 mg PO DAILY metoprolol tartrate 25 mg tablet 25 mg PO BID Eliquis 5 mg tablet 5 mg PO BID Discharge Orders: Discharge ED (Routine); Ordered 04/28/25 Ordered By: Chang Sy Referrals: Sonido Alvarado DO [Primary Care Provider, Internal Medicine] Patient Instructions: Opioid Safety, Pain Management, Patient Portal & [employer] Instructions Print Language: Macanese Coding Level of Care Code ED Power Shear Operator for Italo Ohara
[2025-04-28 19:00] VITALS: BP 137/60; PULSE 56; O2SAT 91
[2025-04-28 20:00] VITALS: BP 136/32; PULSE 57; O2SAT 91
[2025-04-28 21:18] VITALS: BP 128/98; PULSE 58; O2SAT 92
== END 2025-04-28 21:26 | disposition home or self-care (01) ==
PROVIDERS: Emergency Provider Family Medicine; PCP Internal Medicine
DX: S00.11XA Contusion of right eyelid and periocular area, initial encounter (principal); Z79.01 Long term (current) use of anticoagulants; J44.9 Chronic obstructive pulmonary disease, unspecified; I25.10 Atherosclerotic heart disease of native coronary artery without angina pectoris; E11.9 Type 2 diabetes mellitus without complications; I50.9 Heart failure, unspecified; W19.XXXA Unspecified fall, initial encounter
CPT/HCPCS: 70450; 72125; 73610; 99284